=== PATIENT | male | born 1965 | race Caucasian/White ===

== ENCOUNTER 2023-07-05 07:55 | Emergency (ER) | payer SELFPAY ==
[2023-07-05 07:57] VITALS: BP 134/78; PULSE 98; RESP 16; TEMP 36.4; O2SAT 98; BMI 34.0
--- NOTE | 2023-07-05 09:09 | EDS_ITS ---
HPI History of Present Illness Chief Complaint: Wound Narrative Narrative: 57-year-old male presenting with wound on the left forearm. 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 He had a fasciotomy done at [facility]. Patient states the wound VAC was placed when he was under anesthesia. He reports that it came loose last evening. He apparently has taken this down and duct taped it back together on his arm trying to get a seal. The wound VAC has filled with blood. Patient states his left arm does not hurt and he has sensation which is normal. Denies any new trauma. He has been able to use his left hand/arm without any difficulty. [facility] Medical History Factor IX (functional) deficiency Hx of fracture of wrist Allergy/AdvReac Type Severity Reaction Status Date / Time ciprofloxacin [From Cipro] Allergy Shortness Verified 07/05/23 07:56 of breath codeine Allergy Shortness Verified 07/05/23 07:56 of breath Surgical History History of colon surgery History of partial surgical removal of colon Hx of splenectomy Social History Smoking Status: Current every day smoker tobacco type: cigarettes ROS ROS ED Constitutional Constitutional ED: Denies chills, fever(s) or sweats Eyes Eyes: Denies blurry vision or change in vision ENT ENT ED: Denies ear pain or sore throat Cardiovascular Cardiovascular: Denies chest pain, palpitations or racing heartbeat Respiratory/Chest Respiratory/Chest: Denies cough, dyspnea or sputum Gastrointestinal Gastrointestinal: Denies abdominal pain, constipation, diarrhea, nausea or vomiting Genitourinary Genitourinary ED: Denies dysuria, hematuria or urinary frequency Musculoskeletal Musculoskeletal: Denies arthralgias, myalgias or neck pain Integumentary Denies abscess, Abrasions or rash Neurologic Neurologic: Denies headache(s), paresthesias or weakness Psychiatric Psychiatric: Denies anxiety, depression, suicidal ideation or suicidal thoughts Endocrine Endocrinology: Denies polydipsia or polyuria EXAM Physical Exam Const Vital Signs: 07/05/23 07:57 Temperature 97.6 F L Temperature Source Temporal Pulse Rate 98 Respiratory Rate 16 Blood Pressure 134/78 H Blood Pressure Mean 96 Pulse Ox 98 Oxygen Delivery Method Room Air Positive well nourished General Appearance ED: cyanotic HEENT normocephalic and trauma Eyes PERRL and EOMs intact bilaterally Cardio regular rate and regular rhythm Extremity Extremity Narrative: Left forearm has a wound VAC in place which is ducked taped. Left hand neurovascular intact. He is actually using this to operate his phone. Sensation is normal. Motor strength normal. No obvious bleeding from the wound VAC site. Neuro Sensorium / Orientation: alert Psych mental status grossly normal MDM MDM MDM Narrative Medical decision making narrative: 57-year-old male presenting with wound on the left forearm. He has duct tape this in place. I spoke with Dr. Garcia the plastic surgeon who did the procedure. He states he did a skin graft and to leave this wound alone. I did offer to have the nurses change the dressing and try to seal the wound VAC but he states he does not want anybody to mess with the graft and to leave it in place and patient should take his pain medicines and antibiotics and follow-up for previously scheduled appointment. Patient was counseled. Return precautions discussed. Impression: 1. Wound check Lab Data Attestation: I reviewed the patient's lab results. Discharge Plan Triage Chief Complaint: Wound ED Provider: Stevie Cassidy Dx/Rx/DC Orders Primary Care Provider: Care Physician,No Primary Referrals: Care Physician,No Primary [Primary Care Provider] -
--- NOTE | 2023-07-05 09:26 | ED.RN ---
Wound cleaned and telfa non-stick dressing applied with kerlex and zabrina wrap. Patient tolerated well.
== END 2023-07-05 09:27 | disposition home or self-care (01) ==
PROVIDERS: Emergency Provider Student in an Organized Health Care Education/Training Program; Visit Provider Student in an Organized Health Care Education/Training Program
DX: S51.802A Unspecified open wound of left forearm, initial encounter (principal); F17.210 Nicotine dependence, cigarettes, uncomplicated; X58.XXXA Exposure to other specified factors, initial encounter
CPT/HCPCS: 99282

== ENCOUNTER 2023-12-08 14:11 | Emergency (ER) | payer SELFPAY ==
[2023-12-08 14:12] VITALS: PULSE 84; RESP 16; TEMP 36.4; O2SAT 98; BMI 34.0
[2023-12-08 14:15] VITALS: BP 186/131; PULSE 89; RESP 17; TEMP 36.4; O2SAT 96
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
--- NOTE | 2023-12-08 14:54 | CT_ITS ---
STUDY: CT ABDOMEN AND PELVIS WITHOUT CONTRAST REASON FOR EXAM: Male, 58 years old. Flank pain RADIATION DOSAGE (If Supplied By Facility): CTDIvol = ( 18.06 ) mGy, DLP = ( 885.41 ) mGycm TECHNIQUE: Transaxial images were obtained from the dome of the diaphragm to the symphysis pubis without oral contrast, and without intravenous contrast. Sagittal and coronal images were reconstructed. Individualized dose optimization techniques were used for this CT. The protocol utilizes one or more of the following dose reduction techniques: automated exposure control, adjustment of mA and/or kV according to patient size,and/or use of iterative reconstruction technique. COMPARISON: None. FINDINGS: The visualized lung bases are unremarkable. The visualized portions of the heart are within normal limits. 2.7 cm hypodense lesion left lobe of the liver. Normal gallbladder and extrahepatic biliary system. Normal spleen. Normal pancreas. Normal bilateral adrenal glands. Normal right kidney. Normal left kidney. Normal visualized stomach. Normal small intestine. Colonic diverticulosis. Right hemicolectomy. Ventral hernia contains a loop of ileal colon anastomosis. No evidence of obstruction or inflammation. Normal abdominal aorta. Normal inferior vena cava. Normal retroperitoneum. Normal urinary bladder. Bilateral fat-containing inguinal hernias. Normal abdominal wall. Compression fracture and large lucent lesion superior endplate. No retropulsion. CT/Abdomen/Pelvis without Cont IMPRESSION: No radiodense urolithiasis. Pathologic fracture L2 level. 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 Comparison would be helpful. Otherwise follow-up MRI with and without contrast recommended. Hepatic lesion as noted above. Recommend follow-up nonemergent hepatic MRI with and without IV contrast. Electronically Signed: Tristen Quiroz MD at 16:57 EDT ,
[2023-12-08] MEDS: Morphine 4 MG/ML Syringe IV ×2 (15:14→16:32)
[2023-12-08] MEDS: Ondansetron 4 MG/2 ML Vial IV (15:14)
[2023-12-08 15:31] LABS: Absolute Lymphocyte Count 1.92 X10^3/uL (0.83-4.51); Absolute Neutrophil Count 5.9 X10^3/uL (2.0-7.7); Basophil# 0.07 X10^3/uL; Basophil% 0.8 % (0-1); Eosinophil# 0.57 X10^3/uL; Eosinophils% 6.1 % (0-5); Hematocrit 42.3 % (40-54); Hemoglobin 13.4 g/dL (13.0-16.5); Lymphocyte # 1.92 X10^3/ul (0.83-4.51); Lymphocyte % 20.7 % (19-41); Mean Corp Hgb Conc 31.7 g/dL (32-36); Mean Corpuscular Hgb 27.2 pg (27.0-32.0); Mean Platelet Vol. 9.3 fl (6.2-12.0); Monocyte# 0.78 X10^3/uL; Monocyte% 8.4 % (0-10); NRBC Flagged by Analyzer 0 % (0-5); Neutrophil # 5.89 X10^3/uL (2.7-7.7); Neutrophil % 63.4 % (47-70); Platelet Count 581 K/mm3 (150-450); RBC Distribution Width CV 19.3 % (11.6-14.6); RBC Distribution Width SD 59.4 fl (35.1-43.9); Red Blood Count 4.92 M/mm3 (4.6-6.2); White Blood Count 9.3 K/mm3 (4.4-11.0)
[2023-12-08 15:47] LABS: Anion Gap 3 (5-15); BUN 19 mg/dL (7-18); BUN/Creat Ratio 18.8 RATIO (10-20); Calcium,Total 8.9 mg/dL (8.5-10.1); Chloride 109 mmol/L (98-107); Creatinine, Serum 1.01 mg/dL (0.70-1.30); EST Glomerular Filtration Rate 81 mL/min (>60); Est Glom Filt Rate - Afr Amer 98 mL/min (>60); Estimated Creatinine Clearance 96.05 ml/min; Glucose 123 mg/dL (74-106); Potassium 3.8 mmol/L (3.5-5.1); Sodium Level 138 mmol/L (136-145)
[2023-12-08 16:12] VITALS: BP 164/110; PULSE 88; RESP 18; RESP 22; TEMP 36.4; O2SAT 98
[2023-12-08 16:24] LABS: International Normalized Ratio 1.1; Prothrombin Time (Protime)PT. 14.2 SECONDS (11.7-14.9)
[2023-12-08 16:38] LABS: Color, Urine Brown (Yellow); Glucose, Dipstick Normal (Normal); Ketone-Dipstick 5 mg/dl (Negative); Leukocyte Esterase-Dipstick 100 /ul (Negative); Mucous, Urine 0 SEEN /hpf (<or=2+); Nitrite-Dipstick Positive (Negative); Occult Blood-Urine 250 /ul (Negative); Protein-Dipstick 100 mg/dl (Negative); Specific Gravity, Urine 1.025 (1.002-1.030); Squamous Epithelial Cells - UA 0 SEEN /hpf (0-5); Urine Bilirubin Dipstick Negative (Negative); Urine Clarity Cloudy (Clear); Urine Urobilinogen 4 mg/dl (Normal); Urine pH 6.5 (5.0 - 8.0)
[2023-12-08 16:51] LABS: Red Blood Cells-Urine > 100 SEEN /hpf (0-5); White Blood Cells 5-10 SEEN /hpf (0-5)
[2023-12-08 16:52] LABS: Bacteria 1+ /hpf (None Seen)
[2023-12-08 17:56] VITALS: BP 166/110; PULSE 86; RESP 18; TEMP 36.4; O2SAT 98
[2023-12-08] MEDS: HYDROmorphone 1 MG/ML Syringe 0.5 MG IV (18:27)
[2023-12-08 18:31] VITALS: BP 157/110; PULSE 68; RESP 18; TEMP 36.5; O2SAT 98
== END 2023-12-08 18:37 | disposition home or self-care (01) ==
PROVIDERS: Emergency Provider Emergency Medicine; Visit Provider Emergency Medicine
DX: R10.9 Unspecified abdominal pain (principal); D67 Hereditary factor IX deficiency; M84.48XA Pathological fracture, other site, initial encounter for fracture; F17.210 Nicotine dependence, cigarettes, uncomplicated; R31.9 Hematuria, unspecified
CPT/HCPCS: 74176; 80048; 81001; 85025; 85610; 87086; 96374; 96375; 96376; 99282; J7030; A4216; J2405

== ENCOUNTER 2024-04-08 11:24 | Emergency (ER) | payer SELFPAY ==
[2024-04-08 11:25] VITALS: BP 161/117; PULSE 110; RESP 20; TEMP 35.9; O2SAT 100
[2024-04-08 11:32] VITALS: BP 154/120; PULSE 109; RESP 22; O2SAT 95
[2024-04-08 11:35] VITALS: O2SAT 95
--- NOTE | 2024-04-08 11:47 | ED.VIS.FALL ---
HPI HPI - Fall History of Present Illness Chief Complaint: Fall Detail of Chief Complaint: Tripped and fell yesterday. Complaining of right shoulder pain. Informant: patient and spouse/S.O. Occured/Mechanism Occurred: Yesterday Mechanism/Context: Yes same level fall and Yes trip Usually ambulates: Without assistance Pain/Injury Pain Location: head and upper extremity Quality of Pain: Sharp Current Severity: Severe Maximum Severity: Severe Associated Symptoms Associated Symptoms: Negative for Parasthesias, Weakness, Inability to ambulate, Loss of consciousness or Amnesia Narrative Narrative: 58-year-old male history of factor IX deficiency. He has decreased blood clotting. He had a prior hernia repair and splenectomy. He denies any prior right shoulder injury or surgery. Yesterday he was walking tripped fell on the floor injuring his right shoulder and upper arm. Denies hitting his head. No LOC. No headache. No neck pain. Increased pain today. Patient is right-hand dominant. Prior similar symptoms: No Recent Illness/Hospitalization: No PFSH PFSH Medical History Hx of fracture of wrist Factor IX (functional) deficiency Home Medications ?Medication ?Instructions ?Recorded ?Last Taken ?Type oxycodone-acetaminophen 5 mg-325 1 tab PO Q6H PRN PRN Pain 3 days 12/08/23 Unknown Rx mg tablet #12 TABLETS Allergy/AdvReac Type Severity Reaction Status Date / Time ciprofloxacin (From Cipro) Allergy Shortness Verified 04/08/24 11:27 of breath codeine Allergy Shortness Verified 04/08/24 11:27 of breath Surgical History History of partial surgical removal of colon History of colon surgery Hx of splenectomy Social History Smoking Status: Current every day smoker tobacco type: cigarettes ROS ROS ED ROS Narrative Denies recent illness. Constitutional Constitutional ED: Denies chills Eyes Eyes: Denies blurry vision ENT ENT ED: Denies ear pain Cardiovascular Cardiovascular: Denies chest pain Respiratory/Chest Respiratory/Chest: Denies cough Gastrointestinal Gastrointestinal: Denies abdominal pain Genitourinary Genitourinary ED: Denies dysuria Musculoskeletal Musculoskeletal: Denies arthralgias Integumentary Denies abscess Neurologic Neurologic: Denies headache(s) Psychiatric Psychiatric: Denies anxiety Endocrine Endocrinology: Denies polydipsia Hematologic/Lymphatic Hematologic/Lymphatic: Reports easy bleeding and other Details: Factor IX deficiency. ; Denies lymphadenopathy Allergic/Immunologic Allergic/Immunologic ED: Denies mouth swelling, tongue swelling or urticaria EXAM Physical Exam Narrative Exam Narrative: 58-year-old male complaining of pain vital signs stable afebrile. H EENT exam pupils round react light. No signs of trauma to his face or head nontender no bruising. C-spine and neck nontender. Trachea midline. Back and spine nontender. Lungs clear equal symmetrical. Heart tachycardic 110 no murmur. Chest wall and ribs nontender. Abdomen is soft and nontender. Well-healed prior epigastric midline incision. No bruising. No peritoneal signs. Pelvic girdle intact. Both lower extremities are nontender normal range of motion. No deformity. Left upper extremity unremarkable normal range of motion and mobile designer strength. Right elbow, forearm, wrist and hand are nontender with no deformity. Normal mobile designer strength. Normal radial pulse. Normal sensation. He has tenderness along his right shoulder and proximal humerus. He has limited range of motion due to pain. There is no gross bony deformity. Currently there is no bruising. Neurologically is awake and alert with no focal motor deficits. Const Vital Signs: 04/08/24 11:25 04/08/24 11:32 04/08/24 11:35 Temperature 96.7 F L Temperature Source Temporal Pulse Rate 110 H 109 H Respiratory Rate 20 H 22 H Respiratory Effort Normal Blood Pressure 161/117 H 154/120 H Blood Pressure Mean 131 131 Pulse Ox 100 95 95 Oxygen Delivery Method Room Air Room Air Room Air 04/08/24 15:00 Temperature Temperature Source Pulse Rate 105 H Respiratory Rate 16 Respiratory Effort Blood Pressure 150/99 H Blood Pressure Mean 116 Pulse Ox 98 Oxygen Delivery Method Room Air Positive well nourished and well developed; Negative for cachectic, contractures or unkempt General Appearance ED: well developed; Negative for unkempt, cachectic, contractures or NAD Nutritional Appearance: Negative for cachectic HEENT Reports normocephalic atraumatic; Negative for trauma, contusion, hematoma or tenderness Eyes PERRL and EOMs intact bilaterally General Eye ED: Negative for pale conjunctiva or scleral icterus Neck full ROM, no lymphadenopathy and supple General: Negative for tenderness Chest Wall inspection of chest normal and palpation of chest normal Resp normal respiratory effort, no retractions and clear to auscultation bilaterally Auscultation: Negative for rales, rhonchi or wheezes Cardio regular rhythm, S1 normal heart sound, S2 normal heart sound and no murmurs; Negative for regular rate Rate: tachycardic GI non-tender, non-distended and no masses Inspection: Negative for abdominal distention Palpation: soft; Negative for guarding or rebound tenderness present Back/Spine no CVA tenderness General Back: Negative for CVA tenderness Cervical Spine: Negative for cervical spine tenderness Lumbar Spine / Lower Back: Negative for lumbar spinal tenderness Extremity Extremity Narrative: Tenderness right shoulder. Limited range of motion due to pain. No bruising or swelling. No deformity. Right elbow, forearm, wrist and hand are nontender. Normal mobile designer strength. Normal sensation. Normal radial pulse. Neuro oriented x3, CN's II-XII intact bilaterally, moves all extremities and no focal motor deficits Bagley Coma Scale: document GCS findings Spontaneous Obeys Commands Oriented 15 Sensorium / Orientation: alert, oriented to person, oriented to place and oriented to time; Negative for orientation impaired, confused, lethargic or stuporous Motor Exam: strength 5/5 throughout Psych mental status grossly normal and thought process normal Appearance: Negative for unkempt Mood & Affect: Negative for depressed or tearful Skin Lesions: no lesions Rashes: no rashes MDM MDM MDM Narrative Medical decision making narrative: 58-year-old male with a factor IX clotting deficiency fell yesterday hit his right shoulder complaining of pain today. Triage note initially said he fell on stairs he and family adamantly denied it he did not fall on the stairs it was just to the floor. X-ray of be obtained of his right shoulder and humerus. Treated with IV morphine for pain and Zofran. No signs of any head injury chest nor abdomen. Repeat exams the patient's pain is much better now after IV pain medication. He is able to move his right arm. There is very minimal external swelling on the soft tissue. There is still no bruising. I did go over the x-ray with the patient there is no fracture or dislocation. The CAT scan is read by the radiologist shows minimal soft tissue swelling. I did discuss the CAT scan with the radiologist specifically. We did not see any any expanding hematoma or significant fluid collection. Patient be discharged to home. Ice to the area. Tylenol for pain. Repeat exam prior to discharge around 4 PM patient does have some soft tissue swelling on his posterior shoulder laterally in his proximal humerus. Again no bruising. With his factor IX deficiency I do think this is soft tissue swelling and possible hematoma but really was not seen on the CAT scan and I specifically discussed with the radiologist. I spoke to the patient's folder seamer a Dr. Day at [facility]. She knows the patient well. Clinically does not sound this time the patient needs any factor replacement. He and his girlfriend are comfortable with that. To be discharged to home. If he gets worse he is to follow-up with his folder seamer at [facility]. History & Record Review Discussion w/independent historian: Patient Radiography Diagnostic Testing: Clinical Impression(s) from Imaging Studies Humerus X-Ray 04/08/24 12:15 IMPRESSION: Normal x-ray examination of the humerus. Electronically Signed: Arnie Pacheco MD at 12:47 EDT , Shoulder X-Ray 04/08/24 12:15 IMPRESSION: Findings suggestive of resection of the distal portion of the right clavicle. Soft tissue swelling. Electronically Signed: Arnie Pacheco MD at 12:48 EDT , Upper Extremity CT 04/08/24 13:25 IMPRESSION: No acute fracture or dislocation is seen. Electronically Signed: Arnie Pacheco MD at 13:59 EDT , Right shoulder x-ray, 2 views, interpreted by myself shows Discharge Plan Triage Chief Complaint: Fall ED Provider: Kenton Walker Dx/Rx/DC Orders Clinical Impression: Fall, Contusion of right shoulder Instructions: ED Contusion, Upper Extremity Prescriptions: No Action oxycodone-acetaminophen 5-325 mg tablet 1 tab PO Q6H PRN PRN (Reason: Pain) 3 Days Qty: 12 0RF Primary Care Provider: Care Physician,No Primary Referrals: Hal Monreal MD [Med Staff - Active Staff] - As Needed Care Physician,No Primary [Primary Care Provider] - Activity Restrictions/Additional Instructions: The x-ray of your shoulder and upper arm and the CAT scan showed no broken bone. This appears to be a soft tissue injury to the arm. Ice. Tylenol for pain. This should progressively start getting better. If you do not get your normal range of motion back follow-up with the orthopedic physician I referred you to Dr. Hal Monreal. Print Language: Turkmen Disposition Disposition: Home, Self Care
[2024-04-08] MEDS: Ondansetron 4 MG/2 ML Vial IV (11:51)
[2024-04-08] MEDS: morphine 8 MG/ML Syringe IV (11:51)
--- NOTE | 2024-04-08 12:04 | ED.RN ---
PT HAVING HISTAMINE REACTION TO MORPHINE. PT ASKS THIS RN TO SCRATCH. AREA RED BUT NOT SPREADING WILL MONIITOR. DR SAMANO
--- NOTE | 2024-04-08 12:15 | RAD_ITS ---
STUDY: X-RAY - RIGHT HUMERUS REASON FOR EXAM: Male, 58 years old. Pain following a fall. TECHNIQUE: 2 view(s) of the humerus. COMPARISON: None. FINDINGS: Normal visualized humerus. There is no demonstrated fracture or osseous destructive process. There is no demonstrated soft tissue abnormality. RAD/Humerus min 2 Views IMPRESSION: Normal x-ray examination of the humerus. Electronically Signed: Arnie Pacheco MD at 12:47 EDT ,
--- NOTE | 2024-04-08 12:15 | RAD_ITS ---
STUDY: X-RAY - RIGHT SHOULDER REASON FOR EXAM: Male, 58 years old. Fall and pain TECHNIQUE: 2 view(s) of the shoulder. COMPARISON: None. FINDINGS: Normal glenohumeral articulation. Findings suggestive of prior resection of the distal right clavicle. Normal acromion. Normal humeral head and visualized proximal humerus. Soft tissue swelling. Normal visualized pulmonary apex. RAD/Shoulder min 2 Views IMPRESSION: Findings suggestive of resection of the distal portion of the right clavicle. Soft tissue swelling. Electronically Signed: Arnie Pacheco MD at 12:48 EDT ,
--- NOTE | 2024-04-08 13:25 | CT_ITS ---
STUDY: CT RIGHT SHOULDER REASON FOR EXAM: Male, 58 years old. Fall possible fracture RADIATION DOSAGE (If Supplied By Facility): CTDIvol = ( 45.25 ) mGy, DLP = ( 1111.08 ) mGycm TECHNIQUE: The patient was scanned in a multi detector CT scanner. High resolution transaxial imaging was performed without the administration of intravenous contrast material. Sagittal and coronal images were reconstructed. Individualized dose optimization techniques were used for this CT. COMPARISON: Comparison is made with prior radiograph done earlier today. FINDINGS: Normal glenohumeral articulation. Normal glenoid rim, neck and visualized scapula. Normal humeral head, neck and tuberosities. Normal coracoid process. Normal visualized lateral clavicle. Findings suggestive of possible resection of the distal lateral portion of the right clavicle. There is a Type II morphology (curved), with a neutral orientation. Normal visualized muscles and soft tissue structures. CT/Extremity Upper without Contra IMPRESSION: No acute fracture or dislocation is seen. Electronically Signed: Arnie Pacheco MD at 13:59 EDT ,
--- NOTE | 2024-04-08 13:30 | ED.RN ---
PT PULLED OUT IV. BLOOD NOTED ON FLOOR,ALL OVER BED, UNDERNEATH BED. CLEANED UP. ROOM TO BE A DEEP CLEAN
--- NOTE | 2024-04-08 14:57 | ED.RN ---
PT CURRENTLY ON PHONE TALKING WITH MOTHER ABRAHAM. PT AWARE NEEDS RIDE
[2024-04-08 15:00] VITALS: BP 150/99; PULSE 105; RESP 16; O2SAT 98
--- NOTE | 2024-04-08 15:52 | NURSING ---
DR MUÑOZ PAGED [phone]
== END 2024-04-08 16:16 | disposition home or self-care (01) ==
PROVIDERS: Emergency Provider Emergency Medicine; Visit Provider Emergency Medicine
DX: S40.011A Contusion of right shoulder, initial encounter (principal); F17.210 Nicotine dependence, cigarettes, uncomplicated; W18.30XA Fall on same level, unspecified, initial encounter
CPT/HCPCS: 73030; 73060; 73200; 96374; 96375; 99282; A4216; J2405

== ENCOUNTER 2024-04-10 15:46 | Emergency (ER) | payer SELFPAY ==
[2024-04-10] VITALS (15 sets, daily range): BP systolic 132–196; BP diastolic 75–133; PULSE 110–123; RESP 12–35; TEMP 36.6–37; O2SAT 92–99; BMI 35.5
--- NOTE | 2024-04-10 16:12 | CT_ITS ---
STUDY: CT CERVICAL SPINE WITHOUT CONTRAST REASON FOR EXAM: Male, 58 years old. injury RADIATION DOSAGE (If Supplied By Facility): CTDIvol = ( 29.55 ) mGy, DLP = ( 625.46 ) mGycm TECHNIQUE: High resolution transaxial imaging was performed without contrast material. Sagittal and coronal images were reconstructed. Individualized dose optimization techniques were used for this CT. COMPARISON: None FINDINGS: Normal craniovertebral junction. There are degenerative changes of the anterior atlantoaxial articulation. Normal odontoid process. There is straightening of the normal cervical lordosis. Normal vertebral bodies and posterior osseous elements. C2-3: Mild left facet hypertrophy produces mild left neural foraminal stenosis. No central spinal stenosis. C3-4: Mild left facet hypertrophy produces mild left neural foraminal stenosis. No central spinal stenosis. C4-5: Normal endplates. Normal disc height and morphology. Normal central canal and intervertebral neuroforamina. C5-6: Normal endplates. Normal disc height and morphology. Normal central canal and intervertebral neuroforamina. C6-7: Normal endplates. Normal disc height and morphology. Normal central canal and intervertebral neuroforamina. C7-T1: Normal endplates. Normal disc height and morphology. Normal central canal and intervertebral neuroforamina. Normal visualized soft tissue structures. CT/Spine Cervical without Contras IMPRESSION: No acute fracture or subluxation. Electronically Signed: Chico Roland MD at 19:17 EDT ,
--- NOTE | 2024-04-10 16:12 | CT_ITS ---
STUDY: CT CHEST, ABDOMEN T PELVIS WITHOUT CONTRAST REASON FOR EXAM: Male, 58 years old. injury RADIATION DOSAGE (If Supplied By Facility): CTDIvol = ( 37.05 ) mGy, DLP = ( 3399.71 ) mGycm TECHNIQUE: Transaxial imaging was performed without the administration of intravenous contrast material. Individualized dose optimization techniques were used for this CT. COMPARISON: No relevant priors. FINDINGS: CHEST The lungs are normal. There is no demonstrated pleural abnormality. Normal heart and pericardium. There are no calcifications of the coronary arteries. Normal mediastinum. Normal hilar regions. Normal unenhanced pulmonary arteries. Normal aorta arch and descending thoracic aorta. Multiple healed rib fractures bilaterally. Enlargement indenting ill-defined increased attenuation of the right subscapularis muscle suggestive of an intramuscular hematoma. Stranding of the fat within the right axilla and right chest wall. There is no demonstrated abnormality of the visualized upper abdomen. ABDOMEN The visualized lung bases are unremarkable. The visualized portions of the heart are within normal limits. Normal liver. Normal gallbladder and extrahepatic biliary system. No spleen visualized consistent with asplenia or plantar splenectomy. Normal pancreas. Normal bilateral adrenal glands. Normal right kidney. Normal left kidney. Normal visualized stomach. Normal small intestine. There are multiple colonic diverticula consistent with diverticulosis. Status post right hemicolectomy. Normal abdominal aorta. Normal inferior vena cava. Normal retroperitoneum. Normal abdominal wall. Normal osseous structures. PELVIS Normal urinary bladder. Normal visualized small intestine. Normal visualized colon. There is no pelvic fluid. There is no pelvic lymphadenopathy or mass lesion. Normal visualized pelvic arteries. Normal abdominal wall. Normal osseous structures. CT/CT Chest, Abd, Pelvis WO Cont IMPRESSION: Suspect hematoma the right subscapularis muscle but no pneumothorax or hemothorax. No acute solid organ or bowel injury. Electronically Signed: Chico Roland MD at 18:47 EDT ,
--- NOTE | 2024-04-10 16:12 | CT_ITS ---
STUDY: CT BRAIN WITHOUT CONTRAST REASON FOR EXAM: Male, 58 years old. injury RADIATION DOSAGE (If Supplied By Facility): CTDIvol = ( 44.99 ) mGy, DLP = ( 796.11 ) mGycm TECHNIQUE: Transaxial CT imaging of the brain was performed without administration of intravenous contrast material. Individualized dose optimization techniques were used for this CT. COMPARISON: No relevant priors. FINDINGS: Normal soft tissue structures. Normal calvarium. Normal size ventricles and extra-axial spaces for the patient''s age. Normal white matter tracts of the cerebral hemispheres. Normal basal ganglia and thalami. Normal brainstem. Normal cerebellum. There is no intracranial hemorrhage. There are no findings of an acute ischemic infarction. Normal visualized paranasal sinuses. CT/Brain/Head without Contrast IMPRESSION: Normal unenhanced CT scan of the brain. Electronically Signed: Chico Roland MD at 18:19 EDT ,
--- NOTE | 2024-04-10 16:16 | EDS_ITS ---
HPI History of Present Illness Chief Complaint: Weakness Informant: patient and spouse/S.O. Narrative Narrative: Presents by private vehicle with significant other due to worsening weakness. 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 He had weakness fall 2 days ago right shoulder injury. Seen in the ED x-ray CT imaging negative. The evening increasing bruising and pain. He has not been able to get out of bed for the last 2 days. Per significant other legs are Jell-O. He is reported later evening increasing neck pain and back pain. There has been increasing confusion per significant other. He does not take any blood thinners. Reported injury left forearm this past May went to [facility] Admitted treated for compartment syndrome of his left forearm. Denies any paresthesias to the right upper extremity. However discussed pain worse with movement. There is been no new injuries. Prior similar symptoms: Yes PFSH PFSH Medical History Hx of fracture of wrist Factor IX (functional) deficiency Home Medications ?Medication ?Instructions ?Recorded ?Last Taken ?Type NK 04/10/24 Unknown History Allergy/AdvReac Type Severity Reaction Status Date / Time ciprofloxacin (From Cipro) Allergy Shortness Verified 04/08/24 11:27 of breath codeine Allergy Shortness Verified 04/08/24 11:27 of breath Surgical History History of partial surgical removal of colon History of colon surgery Hx of splenectomy Social History Smoking Status: Current every day smoker tobacco type: cigarettes ROS ROS ED Constitutional Constitutional ED: Denies chills, fever(s) or sweats Eyes Eyes: Denies change in vision ENT ENT ED: Denies dysphagia or sore throat Cardiovascular Cardiovascular: Denies chest pain, leg edema, palpitations or racing heartbeat Respiratory/Chest Respiratory/Chest: Denies cough, dyspnea or dyspnea on exertion Gastrointestinal Gastrointestinal: Denies abdominal pain, diarrhea, nausea or vomiting Genitourinary Genitourinary ED: Denies dysuria, hematuria or urinary frequency Musculoskeletal Musculoskeletal: Reports back pain and neck pain; Denies extremity pain Integumentary Denies rash or wounds Neurologic Neurologic: Reports headache(s) and weakness; Denies paresthesias Hematologic/Lymphatic Hematologic/Lymphatic: Reports easy bruising EXAM Physical Exam Const Vital Signs: 04/10/24 15:47 04/10/24 15:51 04/10/24 16:10 Temperature 97.9 F Temperature Source Oral Pulse Rate 121 H 123 H Respiratory Rate 12 18 Respiratory Pattern Tachypnea Blood Pressure 132/107 H 171/133 H Blood Pressure Mean 115 145 Pulse Ox 99 94 Oxygen Delivery Method Room Air Room Air 04/10/24 16:12 04/10/24 16:31 04/10/24 16:45 Temperature Temperature Source Pulse Rate 120 H 118 H Respiratory Rate 24 H 25 H Respiratory Pattern Tachypnea Blood Pressure Blood Pressure Mean Pulse Ox Oxygen Delivery Method 04/10/24 16:51 04/10/24 17:00 04/10/24 17:25 Temperature Temperature Source Pulse Rate 110 H 118 H Respiratory Rate 26 H 25 H Respiratory Pattern Blood Pressure 165/110 H 156/75 H 157/118 H Blood Pressure Mean 128 102 125 Pulse Ox 95 94 Oxygen Delivery Method Room Air Room Air 04/10/24 17:30 04/10/24 17:42 04/10/24 17:44 Temperature 98.4 F Temperature Source Oral Pulse Rate 116 H 118 H Respiratory Rate 35 H 23 H Respiratory Pattern Blood Pressure 165/121 H 165/121 H Blood Pressure Mean 133 135 Pulse Ox 92 Oxygen Delivery Method Room Air 04/10/24 17:45 04/10/24 18:00 04/10/24 19:25 Temperature Temperature Source Pulse Rate 115 H 112 H 117 H Respiratory Rate 25 H 23 H 23 H Respiratory Pattern Blood Pressure 149/85 H 196/116 H Blood Pressure Mean 103 142 Pulse Ox 94 95 Oxygen Delivery Method Room Air Room Air 04/10/24 20:00 04/10/24 20:48 Temperature 98.6 F Temperature Source Pulse Rate 112 H 117 H Respiratory Rate 21 H 27 H Respiratory Pattern Blood Pressure 155/121 H 192/129 H Blood Pressure Mean 132 150 Pulse Ox 95 95 Oxygen Delivery Method Room Air Positive well nourished and well developed Constitutional Narrative: GCS 15, uncomfortable, nontoxic General Appearance ED: well developed HEENT Reports dry mucous membranes normocephalic and atraumatic Mouth ED: Yes dry mucous membranes Mouth: dry mucous membranes Eyes EOMs intact bilaterally and conjunctivae normal General Eye ED: Yes normal appearance of both eyes Neck no lymphadenopathy and supple Neck Narrative: Lower cervical tenderness without any step-offs. General: tenderness Chest Wall Chest Narrative: Noticed ecchymosis under the right lower collarbone, no crepitus. Chest: tenderness Resp normal respiratory effort and normal air movement Resp Narrative: Symmetric breath sounds. Effort and Inspection: symmetric chest movement; Negative for respiratory distress Cardio regular rhythm and no murmurs Rate: tachycardic Peripheral Pulses: pulses 2+ throughout GI normal to inspection, nondistended, normoactive bowel sounds and non-tender Palpation: Negative for guarding or rebound tenderness present Back/Spine no CVA tenderness Back/Spine Narrative: Tender palpation mid thoracic without any step-offs or ecchymosis. Small area of ecchymosis right lateral thoracic region. Skin intact. Extremity Extremity Narrative: Right upper extremity: Ecchymosis posterior humerus tenderness, some tension posteriorly, however soft compartments anteriorly. Patient with pain with movement of the right shoulder. Neuro vas intact distally. General Extremety ED: Yes edema and tenderness General Extremity: edema Neuro oriented x3, CN's II-XII intact bilaterally and no sensory deficits noted Sensorium / Orientation: awake and alert Skin Skin Narrative: See above MDM MDM MDM Narrative Medical decision making narrative: Interventions / MDM: Differential diagnosis: Dehydration, ecchymosis right upper extremity, history of factor IX deficiency, compartment syndrome Diagnosis considered but do not suspect: Intracranial hemorrhage, fractures however image studies negative. My EKG interpretation: N/A Imaging independently reviewed and interpreted by myself: CT head/cervical spine: No acute process. CT chest abdomen pelvis: Old L3 compression fracture. There was hematoma right scapular per radiology. External documents reviewed: N/A Test considered but not ordered:N/A ED course: Patient dry mucosal murmurs tachycardia. Decreased p.o. intake. Reported increased confusion increasing neck and upper back pain there has been no new falls. Will obtain trauma scans head neck chest abdomen pelvis. Will check blood counts, more tense right upper arm posterior heel mends no current compartment syndrome however is at risk with his factor IX deficiency. We do not have treatment for this deficiency at the facility here. Will treat for his pain. Will likely need transfer for monitoring. 1925: He received additional fentanyl and Dilaudid for pain control for his right arm pain. CT scans with no new finding. Hematoma noted scapularis area clinically from his hematoma from his arm and fall. Hemoglobin 9.4 down from 13.4 in November. Blood pressure stable. White count returned at 20.8 I did add sepsis labs. Urine culture also added. He is covered with Zosyn and vancomycin. Lactic acid returned at 2.1. Denies urinary symptoms. No pneumonia on CT. Reevaluation of pain is more taut in the posterior humerus anterior was soft. However he is at risk for compartment syndrome. He had surgery in May left forearm secondary to small a traumatic event. I spoke with [facility] Transfer line ED physician Dr. Debra Candelario, he will be transferred to the ED for trauma consult. Discussed broad coverage antibiotics for his leukocytosis. Patient and significant other updated. Re-evaluation: stable Disposition discussed with patient/family/significant other: Patient and significant other Case discussed with consulting clinician: [facility] This note was generated with [employer] dictation software. It may contain incorrect words, spelling, and punctuation that were not noted in checking the note before signing. Lab Data Attestation: I reviewed the patient's lab results. Labs: Laboratory Results - last 24 hr 04/10/24 04/10/24 04/10/24 17:05 18:39 19:33 WBC 20.8 H RBC 3.26 L Hgb 9.4 L Hct 29.0 L MCV 89.0 MCH 28.8 MCHC 32.4 RDW Std Deviation 61.0 H RDW Coeff of Uday 19.0 H Plt Count 338 MPV 10.3 Immature Gran % (Auto) 0.700 Neut % (Auto) 78.7 H Lymph % (Auto) 9.6 L [place] % (Auto) 10.8 H Eos % (Auto) 0.0 Baso % (Auto) 0.2 Absolute Neuts (auto) 16.4 H Absolute Lymphs (auto) 1.99 Nucleated RBC % 0.8 Differential Comment SCANNED Diff Path Review October foll PT 12.5 INR 0.9 APTT 40.1 H Sodium 136 Potassium 4.0 Chloride 104 Carbon Dioxide 24.0 Anion Gap 8 BUN 41 H Creatinine 1.29 Estim Creat Clear Calc 76.93 Est GFR (MDRD) Af Amer 74 Est GFR (MDRD) Non-Af 61 BUN/Creatinine Ratio 31.8 H Glucose 190 H Lactic Acid 2.1 H* Calcium 8.5 Urine Color Tammy Urine Clarity Clear Urine pH 6.0 Ur Specific Coffey 1.015 Urine Protein 30 H Urine Glucose (UA) Normal Urine Ketones Negative Urine Occult Blood Negative Urine Nitrite Negative Urine Bilirubin 1 H Urine Urobilinogen 12 H Ur Leukocyte Esterase 25 H Urine RBC 0 SEEN Urine WBC 0-5 SEEN Ur Squamous Epith Cells 0 SEEN Urine Bacteria 1+ Urine Mucus 0 SEEN Radiography Diagnostic Testing: Clinical Impression(s) from Imaging Studies Brain CT 04/10/24 16:12 IMPRESSION: Normal unenhanced CT scan of the brain. Electronically Signed: Chico Roland MD at 18:19 EDT Reading Location ID and State: [id number] / [employer] , Service support , Cervical Spine CT 04/10/24 16:12 IMPRESSION: No acute fracture or subluxation. Electronically Signed: Chico Roland MD at 19:17 EDT Reading Location ID and State: [id number] / [employer] , Service support , Chest/Abdomen/Pelvis CT 04/10/24 16:12 IMPRESSION: Suspect hematoma the right subscapularis muscle but no pneumothorax or hemothorax. No acute solid organ or bowel injury. Electronically Signed: Chico Roland MD at 18:47 EDT Reading Location ID and State: [id number] / [employer] , Service support , Critical Care Time Critical Care Time: Yes Critical care time (excluding procedures): 30-74 minutes, Discussing w/Patient &/or Family/Tile Helper, Discussing w/Consultants, Arranging Admission or Transfer, Performing Direct Patient Care at Bedside and - (40 minutes) Discharge Plan Triage Chief Complaint: Weakness ED Provider: Clement Meeks Dx/Rx/DC Orders Clinical Impression: Hematoma of right upper extremity, Leukocytosis, Factor IX deficiency, Weakness, Anemia Prescriptions: No Action NK Primary Care Provider: Care Physician,No Primary Referrals: Care Physician,No Primary [Primary Care Provider] - Print Language: Peruvian Disposition Disposition: Acute Care Hospital Discharge Location: [facility] Discharge Date/Time: 04/10/24 21:27
[2024-04-10] MEDS: fentaNYL 100 MCG/2 ML Ampul 50 MCG IV ×2 (16:24→17:50)
[2024-04-10] MEDS: 0.9% Normal Saline (500mL Bag) 500 ML 999 ML IV (16:26)
--- NOTE | 2024-04-10 16:32 | ED.RN ---
Unable to obtain blood work via peripheral IV. Lab called and they will be sending someone to draw pt.
[2024-04-10 17:15] LABS: Absolute Lymphocyte Count 1.99 X10^3/uL (0.83-4.51); Absolute Neutrophil Count 16.4 X10^3/uL (2.0-7.7); Basophil# 0.04 X10^3/uL; Basophil% 0.2 % (0-1); Hemoglobin 9.4 g/dL (13.0-16.5); Lymphocyte # 1.99 X10^3/ul (0.83-4.51); Lymphocyte % 9.6 % (19-41); Mean Corp Hgb Conc 32.4 g/dL (32-36); Mean Corpuscular Hgb 28.8 pg (27.0-32.0); Mean Platelet Vol. 10.3 fl (6.2-12.0); Monocyte# 2.24 X10^3/uL; Monocyte% 10.8 % (0-10); NRBC Flagged by Analyzer 0.8 % (0-5); Neutrophil # 16.35 X10^3/uL (2.7-7.7); Neutrophil % 78.7 % (47-70); POSITIVE DIFFERENTIAL YES; Platelet Count 338 K/mm3 (150-450); Red Blood Count 3.26 M/mm3 (4.6-6.2); White Blood Count 20.8 K/mm3 (4.4-11.0)
[2024-04-10 17:21] LABS: Differential Indicated SCAN CRITERIA MET
[2024-04-10 17:23] LABS: International Normalized Ratio 0.9; Prothrombin Time (Protime)PT. 12.5 SECONDS (11.7-14.9)
[2024-04-10 17:24] LABS: Partial Thromboplast Time 40.1 Seconds (24.1-36.2)
[2024-04-10 17:28] LABS: Anion Gap 8 (5-15); BUN 41 mg/dL (7-18); BUN/Creat Ratio 31.8 RATIO (10-20); Calcium,Total 8.5 mg/dL (8.5-10.1); Chloride 104 mmol/L (98-107); Creatinine, Serum 1.29 mg/dL (0.70-1.30); EST Glomerular Filtration Rate 61 mL/min (>60); Est Glom Filt Rate - Afr Amer 74 mL/min (>60); Estimated Creatinine Clearance 76.93 ml/min; Glucose 190 mg/dL (74-106); Sodium Level 136 mmol/L (136-145)
[2024-04-10 18:20] LABS: Differential Comment SCANNED
[2024-04-10] MEDS: HYDROmorphone 1 MG/ML Syringe IV ×2 (18:44→20:11)
[2024-04-10 19:23] LABS: Lactic Acid 2.1 mmol/L (0.4-1.9)
[2024-04-10] MEDS: Piperacil/Tazobactam 3.375 GM in 0.9% Normal Saline (50mL MB+) 50 ML IV (19:24)
[2024-04-10 19:42] LABS: Mucous, Urine 0 SEEN /hpf (<or=2+); Red Blood Cells-Urine 0 SEEN /hpf (0-5); Squamous Epithelial Cells - UA 0 SEEN /hpf (0-5)
[2024-04-10 19:49] LABS: Color, Urine Amber (Yellow); Glucose, Dipstick Normal (Normal); Ketone-Dipstick Negative (Negative); Leukocyte Esterase-Dipstick 25 /ul (Negative); Nitrite-Dipstick Negative (Negative); Occult Blood-Urine Negative /ul (Negative); Protein-Dipstick 30 mg/dl (Negative); Specific Gravity, Urine 1.015 (1.002-1.030); Urine Clarity Clear (Clear); Urine Urobilinogen 12 mg/dl (Normal)
[2024-04-10 20:02] LABS: Urine Bilirubin Dipstick 1 mg/dL (Negative)
[2024-04-10 20:03] LABS: Bacteria 1+ /hpf (None Seen); White Blood Cells 0-5 SEEN /hpf (0-5)
[2024-04-10] MEDS: Vancomycin HCl 2,000 MG in 0.9% Normal Saline (500mL Bag) 500 ML 250 MG IV (20:10)
[2024-04-10 22:44] LABS: Reflex Lactate? Y
[2024-04-12 13:38] LABS: Pathologist Review Reviewed
== END 2024-04-10 21:27 | disposition short-term general hospital (02) ==
PROVIDERS: Emergency Provider Emergency Medicine; Visit Provider Emergency Medicine
DX: S20.211A Contusion of right front wall of thorax, initial encounter (principal); D67 Hereditary factor IX deficiency; S40.011A Contusion of right shoulder, initial encounter; W19.XXXA Unspecified fall, initial encounter; D72.829 Elevated white blood cell count, unspecified; D64.9 Anemia, unspecified; R51.9 Headache, unspecified; R41.0 Disorientation, unspecified; R53.1 Weakness; M54.2 Cervicalgia; F17.210 Nicotine dependence, cigarettes, uncomplicated; Z88.1 Allergy status to other antibiotic agents; Z90.81 Acquired absence of spleen; Z90.49 Acquired absence of other specified parts of digestive tract
CPT/HCPCS: 70450; 71250; 72125; 74176; 80048; 81001; 83605; 85025; 85610; 85730; 87040; 87086; 96361; 96365; 96367; 96374; 96375; 96376; 99285; J7040; A4216

== ENCOUNTER 2024-04-15 15:21 | Emergency (ER) | payer SELFPAY ==
[2024-04-15] VITALS (11 sets, daily range): BP systolic 134–168; BP diastolic 78–106; PULSE 88–110; RESP 15–38; TEMP 36.7–37; O2SAT 93–98; BMI 35.6
--- NOTE | 2024-04-15 15:40 | CT_ITS ---
STUDY: CT BRAIN WITHOUT CONTRAST REASON FOR EXAM: Male, 58 years old. R sided weakness RADIATION DOSAGE (If Supplied By Facility): = ( 44.99 ) mGy, DLP = ( 779.24 ) mGycm TECHNIQUE: Transaxial CT imaging of the brain was performed without administration of intravenous contrast material. Individualized dose optimization techniques were used for this CT. COMPARISON: 04/10/2024 FINDINGS: Normal soft tissue structures. Normal calvarium. Normal size ventricles and extra-axial spaces for the patient''s age. Normal white matter tracts of the cerebral hemispheres. There are bilateral lacunar infarcts of the basal ganglia and thalami. Normal brainstem. Normal cerebellum. There is no intracranial hemorrhage. There are no findings of an acute ischemic infarction. Normal visualized paranasal sinuses. CT/Brain/Head without Contrast IMPRESSION: No change or acute abnormality. 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 Electronically Signed: Servando Horton MD at 18:12 EDT ,
--- NOTE | 2024-04-15 15:40 | CT_ITS ---
STUDY: CT CERVICAL SPINE WITHOUT CONTRAST REASON FOR EXAM: Male, 58 years old. fall, neck trauma RADIATION DOSAGE (If Supplied By Facility): CTDIvol = ( 27.38 ) mGy, DLP = ( 521.37 ) mGycm TECHNIQUE: High resolution transaxial imaging was performed without contrast material. Sagittal and coronal images were reconstructed. Individualized dose optimization techniques were used for this CT. COMPARISON: None FINDINGS: No definite acute fracture/dislocation. The cervical junction is intact. C1-C2 articulation is intact. Curvature is within normal limits. There is normal alignment. Facet joints are intact at all levels bilaterally. No jumped facets. There is multilevel spondyloarthropathy. Multilevel degenerative disc disease seen. Multilevel loss of disc height. Multilevel posterior marginal osteophytes and disc bulges. Multilevel neural foraminal narrowing. Visualized paraspinal soft tissues and structures are unremarkable. CT/Spine Cervical without Contras IMPRESSION: There is no definite acute fracture/dislocation. Degenerative changes.. Electronically Signed: Servando Horton MD at 18:16 EDT ,
--- NOTE | 2024-04-15 15:40 | CT_ITS ---
EXAM: CT CHEST, ABDOMEN AND PELVIS WITH INTRAVENOUS CONTRAST CLINICAL INDICATION: mult falls, pain abd/chest, xmas disease TECHNIQUE: Helically acquired images were obtained of the chest, abdomen and pelvis with intravenous contrast. This CT exam was performed using one or more of the following dose reduction techniques: automated exposure control, adjustment of the mA and/or kV according to patient size, and/or use of iterative reconstruction technique. CONTRAST: IV 100mL [id number] RADIATION DOSE: CTDIvol = 22.30 mGy, DLP = 2199.77 mGy-cm COMPARISON: 12/08/2023, 04/10/2024 FINDINGS: LIMITATIONS: Exam is limited by improper positioning of patient''s arms resulting in significant streak artifact. CHEST: LUNGS AND PLEURAL SPACES: Unremarkable. No mass. No consolidation or edema. No pleural effusion or thickening. No pneumothorax. HEART: Unremarkable. Heart size is normal. No pericardial effusion. MEDIASTINUM: Unremarkable. No mediastinal or hilar adenopathy. Esophagus is unremarkable. No hiatal hernia. THYROID: Unremarkable. No thyroid lesions. ABDOMEN: LIVER: Unremarkable. Homogeneous. No focal mass. GALLBLADDER AND BILE DUCTS: Unremarkable. No calcified gallstones. No gallbladder distention or wall edema. No intra- or extrahepatic biliary ductal dilation. PANCREAS: Unremarkable. No focal cystic or solid mass. SPLEEN: Unremarkable. Normal size without focal cystic or solid mass. ADRENALS: Unremarkable. No nodules. KIDNEYS AND URETERS: Unremarkable. Normal renal size and position. No hydronephrosis. STOMACH AND BOWEL: Evaluation of the GI tract is limited by absence of oral contrast. Cannot exclude stomach wall thickening. No dilated loops of bowel or evidence for obstruction. Cannot exclude segmental thickening of the pollard of the small or large bowel. Cannot exclude enteritis or colitis. Moderate diffuse fecal retention. Diverticulosis without definite diverticulitis. Appendix within normal limits. There is a small midline abdominal wall hernia containing a short knuckle of bowel with no evidence for secondary obstruction. No focal inflammatory change. PELVIS: APPENDIX: No evidence of acute appendicitis. BLADDER: Unremarkable. REPRODUCTIVE: Unremarkable as visualized. No mass. CHEST, ABDOMEN and PELVIS: INTRAPERITONEAL SPACE: Unremarkable. No ascites or other fluid collection. No free air. BONES/JOINTS: No definite acute fractures. Stable partial compression fractures of T6, T8, and T11. Severe compression fracture of L2, stable. Stable appearance of old rib fractures. No suspicious lytic or blastic abnormality. SOFT TISSUES: Again seen are changes from of diffuse soft tissue swelling probably related to hematomas of the right shoulder muscles, especially the subscapularis. Nonspecific edema of the subcutaneous tissues of the upper right chest. Probable bruising in the right axilla. No definite extravasation of contrast or evidence for active bleeding. Overall the findings are likely mildly improved since previous exam. VASCULATURE: Unremarkable. Aorta is non-dilated. No aortic dissection. No obvious central pulmonary embolism although this study was not performed with the pulmonary embolism protocol. LYMPH NODES: Unremarkable. No enlarged lymph nodes. CT/CT Chest, Abd, Pel w/Contrast IMPRESSION: 1. Limited as above. 2. Extensive intramuscular hematomas and axillary hemorrhages of the right shoulder and upper right chest wall are seen, probably slightly improved. Definitely no worsening or active bleeding. 3. Several compression fractures as described above, stable. No definite acute fractures. 4. Small midline upper abdominal wall hernia including a short knuckle of bowel. Old Electronically Signed: Servando Horton MD at 18:36 EDT ,
--- NOTE | 2024-04-15 15:57 | EX.ED.UPPERE ---
HPI History of Present Illness Chief Complaint: Upper Extremity Injury Informant: patient and EMS Narrative Narrative: 58-year-old male had a fall down a flight of steps a week ago, he has Denisse disease, he sustained a hematoma to his right shoulder and was transferred to [facility] Because we do not have any factor IX and it was suspected that he had his head. He states that they recommended he stay get other testing however he decided against that and left. He presents now here saying that since then he has had slurred speech, weakness in his right arm and his legs, all of which has worsened in the past week. He states the weakness in his legs has resulted in multiple other falls that are been relatively minor, he states he denies any other major injuries like to when he had a week ago, but when asked if he hit his head he states that he thinks so once or twice cannot give us any other details. Denies any loss of consciousness. [facility] Medical History Hx of fracture of wrist Factor IX (functional) deficiency Home Medications ?Medication ?Instructions ?Recorded ?Last Taken ?Type NK 04/10/24 Unknown History Allergy/AdvReac Type Severity Reaction Status Date / Time ciprofloxacin (From Cipro) Allergy Shortness Verified 04/08/24 11:27 of breath codeine Allergy Shortness Verified 04/08/24 11:27 of breath Surgical History History of partial surgical removal of colon History of colon surgery Hx of splenectomy Social History Smoking Status: Current every day smoker tobacco type: cigarettes ROS ROS ED Constitutional Constitutional ED: Denies chills or fever(s) Eyes Eyes: Denies change in vision or diplopia ENT ENT ED: Denies rhinorrhea or sore throat Cardiovascular Cardiovascular: Reports chest pain; Denies palpitations Respiratory/Chest Respiratory/Chest: Denies cough or dyspnea Gastrointestinal Gastrointestinal: Reports abdominal pain; Denies diarrhea, nausea or vomiting Genitourinary Genitourinary ED: Reports other Details: Dark urine no gross hematuria ; Denies dysuria or hematuria Musculoskeletal Musculoskeletal: Reports back pain, neck pain and other Details: Right shoulder pain Integumentary Denies abscess or rash Neurologic Neurologic: Reports headache(s), paresthesias RUE and weakness Psychiatric Psychiatric: Denies suicidal thoughts EXAM Physical Exam Const Vital Signs: 04/15/24 15:22 04/15/24 15:23 Temperature 98.6 F Temperature Source Oral Pulse Rate 102 H 104 H Respiratory Rate 21 H Blood Pressure 140/104 H Blood Pressure Mean 116 Pulse Ox 98 Oxygen Delivery Method Room Air Room Air Positive well nourished and well developed General Appearance ED: well developed and NAD HEENT Reports moist mucous membranes normocephalic and atraumatic Eyes PERRL and EOMs intact bilaterally Neck full ROM and supple Neck Narrative: Mild diffuse midline General: tenderness Chest Wall Chest Narrative: Purpuric ecchymosis anterior chest wall emanating from the right axilla. No subcutaneous emphysema. No sternal tenderness. No splinting with deep inspiration. Resp normal respiratory effort and clear to auscultation bilaterally Cardio regular rate, regular rhythm and no murmurs GI non-distended GI Narrative: Mild diffuse tenderness no guarding or rebound Auscultation: normoactive bowel sounds Palpation: soft Back/Spine no CVA tenderness Back/Spine Narrative: Normal inspection but multiple areas of tenderness including diffuse thoracic midline more higher than lower. Tenderness in the left low back paraspinal musculature which is normal on inspection there is no Lewis Ochoa sign. General Back: other Able to sit up up with pain Extremity normal to inspection General Extremety ED: Negative for edema, pulses abnormal or tenderness General Extremity: Negative for edema or pulses abnormal Neuro oriented x3 and CN's II-XII intact bilaterally Neuro Narrative: See NIHSS. Weak on the right side but not the left. Sensorium / Orientation: awake and alert Psych mental status grossly normal Skin no wounds Skin Narrative: Purpura right posterior shoulder and down into the axilla and chest wall right back and chest. NIHSS NIHSS Initial: 1a Level of Consciousness: 0 1b LOC Questions (Score 2 if aphasic/stupor): 0 1c LOC Commands (Only score 1st attempt): 0 2 Best Gaze (If aphasic, use reflexive mvmts.): 0 3 Visual: 0 4 Facial Palsy: 0 5 Motor Arm Right (UN = amputation/fusion): 3 5 Motor Arm Left: 0 6 Motor Leg Right: 1 6 Motor Leg Left: 0 7 Limb ataxia (Only + if out of proportion): 0 8 Sensory (Aphasia/stupor=0 or 1, coma=2): 1 9 Best Language: 0 10 Dysarthria (mute, coma=2, intubated=UN): 1 11 Extinction and Inattention (only scored if +): 0 Total Score: 6 MDM MDM MDM Narrative Medical decision making narrative: I am concerned about this patient's neurologic symptoms, they have been present for 1 week according to him and worsening. However he has this large purpuric/ecchymotic area that I am concerned about blood loss and possibly continuing to have bleeding there, especially with his hemoglobin 1.2 g lower than he was last week, and he is also having abdominal pain, back pain, and neck pain. For these reasons I feel that he needs to have all of these areas reimaged with CT acutely. This was done I reviewed all of the imaging and the reports which I agree with: CT head, cervical spine, chest/abdomen/pelvis. Basically shows evolution of the hematoma in the subscapularis area and right upper chest/axilla. There are also compression fractures of multiple thoracic vertebrae that were not mentioned on the other imaging nor an old CT of the abdomen/pelvis which only saw an L2 fracture. It is unclear when these could have occurred. Certainly they could have occurred within the past week. On the CT of the head, old infarcts of both basal ganglia are seen and no hemorrhage. Unclear if either of these could be causing the symptoms on his right side but he certainly has focal neurologic deficits on the right side and he is not limited by pain with regards to his right upper extremity or his right lower extremity. I was going to discussed with the hospitalist for admission, however it was then brought to my attention that the patient was out of the bed trying to urinate in a bottle, unbeknownst to the staff at the time, and she witnessed him topple over and hit his head on the concrete wall. He did not lose consciousness. We do not have factor IX to provide him. I did send him to CT and repeat it given this injury and his bleeding disorder. I reviewed the images and on my interpretation it does not show an acute hemorrhage or skull fracture. The patient states he is doing fine from it. His neurologic deficits are stable. Radiology is stating that the compression fractures do not appear to be acute. I discussed with hospitalist and they think the patient needs a higher level of care given the fact that we do not have factor IX. In addition, the patient has a mild leukocytosis and multiple immature white blood cells on his peripheral smear. I am still waiting on urinalysis it is in the lab and pending but at this point there are no other signs of an acute infection clinically or radiographically. Given that his urine was discolored/dark I did send a CPK it is within normal limits at 245. Urinalysis returned positive for nitrite and 2+ bacteria, trace leukocyte esterase but otherwise unremarkable, I am sending it for culture. Since patient was recently at [facility], I attempted to transfer him there first. They state that with his acute/subacute neuro symptoms, they do not have beds appropriate for him available right now so they do not have the capacity to accept him and will not likely for the next 2 days. Therefore I attempted to keep him in the [facility] system so that the records from [facility] Will be available to the accepting service, starting with [facility] since they are closer. Accepted there by Dr. Li, who reviewed records in the [facility] system and asked me to add on a urine drug screen since apparently this patient has a history of some substance abuse which I did. Lab Data Attestation: I reviewed the patient's lab results. Labs: Laboratory Tests 04/15/24 Range/Units 15:58 WBC RODEO CLOWN Corrected WBC 12.1 H (4.4-11.0) K/mm3 RBC 2.79 L (4.6-6.2) M/mm3 Hgb 8.2 L (13.0-16.5) g/dL Hct 26.4 L (40-54) % MCV 94.6 H D (80-94) fL MCH 29.4 (27.0-32.0) pg MCHC 31.1 L (32-36) g/dL RDW Std Deviation 60.8 H (35.1-43.9) fl RDW Coeff of Uday 22.7 H (11.6-14.6) % Plt Count 426 (150-450) K/mm3 MPV 9.2 (6.2-12.0) fl Neut % (Auto) Not Reportable Absolute Neuts (auto) 8.0 H (2.0-7.7) X10^3/uL Absolute Lymphs (auto) 1.60 (0.83-4.51) X10^3/uL Total Counted 100 (MANUAL DIFF) Neutrophils % (Manual) 65 (47-70) % Band Neutrophils % 1 (0-5) % Lymphocytes % (Manual) 13 L (19-41) % Monocytes % (Manual) 8 (0-10) % Eosinophils % (Manual) 6 H (0-5) % Metamyelocytes % 3 H (0-1) % Myelocytes % 4 H (0-0) % Nucleated RBCs/100 WBC 20 H (0-5) % Diff Path Review May foll Platelet Estimate ADEQUATE (ADEQ) Plt Morphology Comment GIANT Polychromasia 2+ Anisocytosis 2+ Target Cells 1+ [place] Cells 1+ PT 13.6 (11.7-14.9) SECONDS INR 1.0 Sodium 140 (136-145) mmol/L Potassium 4.1 (3.5-5.1) mmol/L Chloride 109 H (98-107) mmol/L Carbon Dioxide 26.0 (21.0-32.0) mmol/L Anion Gap 5 (5-15) BUN 15 (7-18) mg/dL Creatinine 1.11 (0.70-1.30) mg/dL Estim Creat Clear Calc 89.58 ml/min Est GFR (MDRD) Af Amer 88 (>60) mL/min Est GFR (MDRD) Non-Af 72 (>60) mL/min BUN/Creatinine Ratio 13.5 (10-20) RATIO Glucose 104 (74-106) mg/dL Calcium 8.8 (8.5-10.1) mg/dL Total Creatine Kinase 245 (39-308) U/L Troponin I High Sens 10 (3.0-78.0) pg/mL Blood Type A POSITIVE Antibody Screen NEGATIVE Radiography Diagnostic Testing: Clinical Impression(s) from Imaging Studies Brain CT 04/15/24 15:40 IMPRESSION: No change or acute abnormality. 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 Electronically Signed: Servando Horton MD at 18:12 EDT , Cervical Spine CT 04/15/24 15:40 IMPRESSION: There is no definite acute fracture/dislocation. Degenerative changes.. Electronically Signed: Servando Horton MD at 18:16 EDT , Chest/Abdomen/Pelvis CT 04/15/24 15:40 IMPRESSION: 1. Limited as above. 2. Extensive intramuscular hematomas and axillary hemorrhages of the right shoulder and upper right chest wall are seen, probably slightly improved. Definitely no worsening or active bleeding. 3. Several compression fractures as described above, stable. No definite acute fractures. 4. Small midline upper abdominal wall hernia including a short knuckle of bowel. Old Electronically Signed: Servando Horton MD at 18:36 EDT , Brain CT 04/15/24 19:28 IMPRESSION: No acute abnormality. No change since 1.5 hours earlier. Electronically Signed: Servando Horton MD at 20:14 EDT , Rhythm Strip Rhythm Strip: Sinus Rhythm Rate: 100 Ectopy: None EKG Initial EKG: Attestation: I personally reviewed and interpreted this EKG as follows: Interpretation: No Acute Injury Pattern and Sinus Tachycardia Management Discussion w/another healthcare provider: Hospitalist and Health Services Coordinator Discharge Plan Triage Chief Complaint: Upper Extremity Injury ED Provider: Kevin Diaz Dx/Rx/DC Orders Clinical Impression: Hematoma of right upper extremity, Factor IX deficiency, ABLA (acute blood loss anemia), Acute right hemiparesis, Dysarthria, Closed head injury Prescriptions: No Action NK Primary Care Provider: Care Physician,No Primary Referrals: Care Physician,No Primary [Primary Care Provider] - Print Language: [place] Disposition Disposition: Acute Care Hospital Discharge Location: [facility] Stroke Documentation Questions Stroke Team Activated: No (Symptoms for 1 week/timing) Was Patient considered for Endovascular Intervention?: No-CTA not indicated IV Thrombolytic Administered: No
[2024-04-15 16:14] LABS: Hematocrit 26.4 % (40-54); Hemoglobin 8.2 g/dL (13.0-16.5); Mean Corp Hgb Conc 31.1 g/dL (32-36); Mean Corpuscular Hgb 29.4 pg (27.0-32.0); Mean Corpuscular Volume 94.6 fL (80-94); Mean Platelet Vol. 9.2 fl (6.2-12.0); POSITIVE COUNT YES; POSITIVE MORPHOLOGY YES; Platelet Count 426 K/mm3 (150-450); RBC Distribution Width CV 22.7 % (11.6-14.6); RBC Distribution Width SD 60.8 fl (35.1-43.9); Red Blood Count 2.79 M/mm3 (4.6-6.2)
[2024-04-15 16:24] LABS: Prothrombin Time (Protime)PT. 13.6 SECONDS (11.7-14.9)
[2024-04-15 16:58] LABS: Anion Gap 5 (5-15); BUN 15 mg/dL (7-18); BUN/Creat Ratio 13.5 RATIO (10-20); CPK Total, Creatine Kinase 245 U/L (39-308); Calcium,Total 8.8 mg/dL (8.5-10.1); Chloride 109 mmol/L (98-107); Creatinine, Serum 1.11 mg/dL (0.70-1.30); EST Glomerular Filtration Rate 72 mL/min (>60); Est Glom Filt Rate - Afr Amer 88 mL/min (>60); Estimated Creatinine Clearance 89.58 ml/min; Glucose 104 mg/dL (74-106); Potassium 4.1 mmol/L (3.5-5.1); Sodium Level 140 mmol/L (136-145); Troponin-I HS 10 pg/mL (3.0-78.0)
[2024-04-15 18:18] LABS: Differential Indicated MANUAL DIFF
[2024-04-15 18:31] LABS: Metamyelocyte 3 % (0-1); Neutrophil-Band 1 % (0-5); Neutrophil-Segmented 65 % (47-70); Total Cells Counted 100 (MANUAL DIFF)
[2024-04-15 18:32] LABS: Corrected WBC 12.1 K/mm3 (4.4-11.0); Eosinophil 6 % (0-5); Lymphocyte 13 % (19-41); Monocyte 8 % (0-10); Myelocyte 4 % (0-0); Nucleated Red Bld Cells,Manual 20 % (0-5)
[2024-04-15 18:39] LABS: Anisocytosis 2+
[2024-04-15 18:40] LABS: Polychromasia 2+
[2024-04-15 18:41] LABS: Target Cells 1+
[2024-04-15 18:44] LABS: Burr Cells 1+
[2024-04-15 18:46] LABS: Platelet Estimate ADEQUATE (ADEQ); Platelet Morphology GIANT
--- NOTE | 2024-04-15 19:13 | ED.RN ---
This RN told the pt to sit on the side of the bed to pee and I noticed he was off the heart monitor and went in to check on him and he was standing. This RN witnessed the patient fall forward and hit his head on the wall. Pt did not lose consciousness or hit the floor. This RN informed Dr Diaz.
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
[2024-04-15 19:31] LABS: Mucous, Urine 0 SEEN /hpf (<or=2+); Red Blood Cells-Urine 0 SEEN /hpf (0-5); Squamous Epithelial Cells - UA 0 SEEN /hpf (0-5); White Blood Cells 0 SEEN /hpf (0-5)
[2024-04-15 19:33] LABS: Color, Urine Yellow (Yellow); Glucose, Dipstick Normal (Normal); Ketone-Dipstick Negative (Negative); Leukocyte Esterase-Dipstick 25 /ul (Negative); Nitrite-Dipstick Positive (Negative); Occult Blood-Urine Negative /ul (Negative); Protein-Dipstick 15 mg/dl (Negative); Urine Clarity Sl. Cloudy (Clear); Urine Urobilinogen 12 mg/dl (Normal)
[2024-04-15] MEDS: Morphine 4 MG/ML Syringe IV (20:00)
[2024-04-15 20:07] LABS: Urine Bilirubin Dipstick 1 mg/dL (Negative)
[2024-04-15 20:29] LABS: Amorphous Sediment R; Bacteria 2+ /hpf (None Seen)
[2024-04-15 22:10] LABS: Amphetamine Urine VISTA POSITIVE (<1000 ng/mL); Barbiturate Urine VISTA NEGATIVE (< 200 ng/mL); Benzodiazepine Urine VISTA POSITIVE (< 200 ng/mL); Cocaine Urine VISTA NEGATIVE (< 300 ng/mL); Ecstacy Urine VISTA POSITIVE (< 500 ng/mL); Methadone Urine VISTA NEGATIVE (< 300 ng/mL); PCP Urine VISTA POSITIVE (< 25 ng/mL); THC Urine VISTA NEGATIVE (< 50 ng/mL); Vista UDS pH Range 6
--- NOTE | 2024-04-15 23:21 | ED.RN ---
pt ripped off cardiac leads and blood pressure cuff.
[2024-04-16] MEDS: Morphine 4 MG/ML Syringe IV (00:23)
--- NOTE | 2024-04-16 00:32 | ED.RN ---
This RN walked by the room and the patient was standing by the sink peeing. This RN reiterated that he can not get up without help and got the pt back in bed. The patient stated Yeah I almost fell again. And this RN stated that is why you cannot get up without help. You fell earlier today with me and I do not want you to fall again.
[2024-04-16 01:00] VITALS: BP 177/108; PULSE 85; RESP 25; O2SAT 92
[2024-04-16 01:20] VITALS: BP 177/108; PULSE 89; RESP 25; TEMP 36.8; O2SAT 93
--- NOTE | 2024-04-16 01:23 | ED.RN ---
This RN went into the patient room and the patient had his shirt on and ripped his wrist bands off. This RN tried to get the patient to remove his shirt and he refused. This RN placed a gown on over top of his shirt.
[2024-04-16 14:36] LABS: Pathologist Review Reviewed
== END 2024-04-16 01:58 | disposition short-term general hospital (02) ==
PROVIDERS: Emergency Provider Emergency Medicine; Visit Provider Emergency Medicine
DX: S20.211A Contusion of right front wall of thorax, initial encounter (principal); D67 Hereditary factor IX deficiency; S22.059A Unspecified fracture of T5-T6 vertebra, initial encounter for closed fracture; S32.029A Unspecified fracture of second lumbar vertebra, initial encounter for closed fracture; S22.069A Unspecified fracture of T7-T8 vertebra, initial encounter for closed fracture; S22.089A Unspecified fracture of T11-T12 vertebra, initial encounter for closed fracture; G81.91 Hemiplegia, unspecified affecting right dominant side; S40.021A Contusion of right upper arm, initial encounter; S09.90XA Unspecified injury of head, initial encounter; W19.XXXA Unspecified fall, initial encounter; Y92.230 Patient room in hospital as the place of occurrence of the external cause; D62 Acute posthemorrhagic anemia; W10.9XXA Fall (on) (from) unspecified stairs and steps, initial encounter; R47.1 Dysarthria and anarthria; R82.998 Other abnormal findings in urine; R29.706 NIHSS score 6; F17.210 Nicotine dependence, cigarettes, uncomplicated; Z90.49 Acquired absence of other specified parts of digestive tract; Z90.81 Acquired absence of spleen; Z86.73 Personal history of transient ischemic attack (TIA), and cerebral infarction without residual deficits; Z87.898 Personal history of other specified conditions
CPT/HCPCS: 96375; 70450; 71260; 72125; 74177; 80048; 80307; 81001; 82550; 84484; 85025; 85610; 86850; 86900; 86901; 87086; 93005; 96374; 96376; 99284; Q9967; A4216

== ENCOUNTER 2025-01-17 18:34 | Inpatient (IN) | payer SELFPAY ==
[2025-01-17 18:35] VITALS: BP 197/136; PULSE 102; RESP 16; TEMP 36.6; O2SAT 99; BMI 35.9
[2025-01-17 19:22] VITALS: PULSE 69; RESP 24; O2SAT 99
[2025-01-17 20:44] LABS: Hematocrit 46.4 % (40-54); Hemoglobin 16.0 g/dL (13.0-16.5); Immature Granulocytes Count 0.080 X10^3/uL (0.0-0.0); Mean Corp Hgb Conc 34.5 g/dL (32-36); Mean Corpuscular Volume 91.9 fL (80-94); Mean Platelet Vol. 9.7 fl (6.2-12.0); NRBC Flagged by Analyzer 0 % (0-5); Platelet Count 424 K/mm3 (150-450); RBC Distribution Width CV 13.8 % (11.6-14.6); RBC Distribution Width SD 46.5 fl (35.1-43.9); Red Blood Count 5.05 M/mm3 (4.6-6.2); White Blood Count 13.0 K/mm3 (4.4-11.0)
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
[2025-01-17 20:54] LABS: Alcohol, Blood (Medical)-Serum < 10.1 mg/dL (<=10.0)
[2025-01-17 20:55] LABS: AST(SGOT) 45 U/L (<=37); Alanine Aminotransfer ALT/SGPT 46 U/L (<=46); Albumin, Serum 4.1 g/dL (3.5-5.0); Alkaline Phosphatase 133 U/L (40-129); Anion Gap 13 (5-15); BUN 12 mg/dL (4-19); BUN/Creat Ratio 14.6 RATIO (10-20); Calcium,Total 9.3 mg/dL (7.6-11.0); Carbon Dioxide 21.1 mmol/L (21.0-32.0); Chloride 103 mmol/L (98-108); Estimated Creatinine Clearance 124.79 ml/min (50-250); Globulin 3.5 g/dL (2.2-4.2); Glucose 110 mg/dL (70-99); Potassium 4.1 mmol/L (3.3-5.1)
[2025-01-17 21:08] VITALS: PULSE 99; RESP 22; O2SAT 97
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
[2025-01-17 21:25] VITALS: BP 167/113; PULSE 79; RESP 21; TEMP 36.9; O2SAT 100
--- OUTSIDE RECORDS SUMMARY | 2025-01-17 21:33 | XMS RPT_ITS | CCD ---
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 [facility] Brain/Head without Contrast [facility] Imaging Services [address] [place] [address] Brain/Head without Contrast MR#: [id number] Acct: [id number] Name: ISIDRO SMITH Rep #: [id number] : 1965 M 58 From: Servando holliday MD PCP: Care Physician,No Primary Status: REG ER Study: Brain/Head without Contrast Date of Exam: 03/30 01/20 Exam# [id number] Ordering Dr: Kevin Sanchez MD -[id number] STUDY: CT BRAIN WITHOUT CONTRAST REASON FOR EXAM: Male, 58 years old. R sided weakness RADIATION DOSAGE (If Supplied By Facility): = ( 44.99 ) mGy, DLP = ( 779.24 ) mGycm TECHNIQUE: Transaxial CT imaging of the brain was performed without administration of intravenous contrast material. Individualized dose optimization techniques were used for this CT. COMPARISON: 04/10/2024 FINDINGS: Normal soft tissue structures. Normal calvarium. Normal size ventricles and extra-axial spaces for the patient''s age. Normal white matter tracts of the cerebral hemispheres. There are bilateral lacunar infarcts of the basal ganglia and thalami. Normal brainstem. Normal cerebellum. There is no intracranial hemorrhage. There are no findings of an acute ischemic infarction. Normal visualized paranasal sinuses. CT/Brain/Head without Contrast IMPRESSION: No change or acute abnormality. 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 Electronically Signed: Servando Horton MD at 18:12 EDT , CC: Dr. Kevin Sanchez MD; No Primary Care Physician Formal Service Waiter: Signed Normal [facility] CNPNon 04-15-2024 CNPN Normal [facility] CPK Total, Creatine Kinaseon 04-15-2024 CPK TOTAL 245 U/L Normal 39-308 [facility] Comment on above: Order Comment: 'TROP ' Serial specimen #1, #2 or #3: 1 Performed By: #### L 505.5000 #### [facility] [address] [facility] [place], [place], [address] CT Chest, Abd, Pel w/Contras ton 04-15-2024 CT Chest, Abd, Pel w/Contrast [facility] Imaging Services [address] [place], [place] [address] CT Chest, Abd, Pel w/Contrast MR#: [id number] Acct: [id number] Name: ISIDRO SMITH Rep #: [id number] : 1965 M 58 From: Servando holliday MD PCP: Care Physician,No Primary Status: [facility] ER Study: CT Chest, Abd, Pel w/Contrast Date of Exam: Exam# [id number] Ordering Dr: Kevin Sanchez MD -[id number] EXAM: CT CHEST, ABDOMEN AND PELVIS WITH INTRAVENOUS CONTRAST CLINICAL INDICATION: mult falls, pain abd/chest, xmas disease TECHNIQUE: Helically acquired images were obtained of the chest, abdomen and pelvis with intravenous contrast. This CT exam was performed using one or more of the following dose reduction techniques: automated exposure control, adjustment of the mA and/or kV according to patient size, and/or use of iterative reconstruction technique. CONTRAST: IV 100mL [id number] RADIATION DOSE: CTDIvol = 22.30 mGy, DLP = 2199.77 mGy-cm COMPARISON: 12/08/2023, 04/10/2024 FINDINGS: LIMITATIONS: Exam is limited by improper positioning of patient''s arms resulting in significant streak artifact. CHEST: LUNGS AND PLEURAL SPACES: Unremarkable. No mass. No consolidation or edema. No pleural effusion or thickening. No pneumothorax. HEART: Unremarkable. Heart size is normal. No pericardial effusion. MEDIASTINUM: Unremarkable. No mediastinal or hilar adenopathy. Esophagus is unremarkable. No hiatal hernia. THYROID: Unremarkable. No thyroid lesions. ABDOMEN: LIVER: Unremarkable. Homogeneous. No focal mass. GALLBLADDER AND BILE DUCTS: Unremarkable. No calcified gallstones. No gallbladder distention or wall edema. No intra- or extrahepatic biliary ductal dilation. PANCREAS: Unremarkable. No focal cystic or solid mass. SPLEEN: Unremarkable. Normal size without focal cystic or solid mass. ADRENALS: Unremarkable. No nodules. KIDNEYS AND URETERS: Unremarkable. Normal renal size and position. No hydronephrosis. STOMACH AND BOWEL: Evaluation of the GI tract is limited by absence of oral contrast. Cannot exclude stomach wall thickening. No dilated loops of bowel or evidence for obstruction. Cannot exclude segmental thickening of the pollard of the small or large bowel. Cannot exclude enteritis or colitis. Moderate diffuse fecal retention. Diverticulosis without definite diverticulitis. Appendix within normal limits. There is a small midline abdominal wall hernia containing a short knuckle of bowel with no evidence for secondary obstruction. No focal inflammatory change. PELVIS: APPENDIX: No evidence of acute appendicitis. BLADDER: Unremarkable. REPRODUCTIVE: Unremarkable as visualized. No mass. CHEST, ABDOMEN and PELVIS: INTRAPERITONEAL SPACE: Unremarkable. No ascites or other fluid collection. No free air. BONES/JOINTS: No definite acute fractures. Stable partial compression fractures of T6, T8, and T11. Severe compression fracture of L2, stable. Stable appearance of old rib fractures. No suspicious lytic or blastic abnormality. SOFT TISSUES: Again seen are changes from of diffuse soft tissue swelling probably related to hematomas of the right shoulder muscles, especially the subscapularis. Nonspecific edema of the subcutaneous tissues of the upper right chest. Probable bruising in the right axilla. No definite extravasation of contrast or evidence for active bleeding. Overall the findings are likely mildly improved since previous exam. VASCULATURE: Unremarkable. Aorta is non-dilated. No aortic dissection. No obvious central pulmonary embolism although this study was not performed with the pulmonary embolism protocol. LYMPH NODES: Unremarkable. No enlarged lymph nodes. CT/CT Chest, Abd, Pel w/Contrast IMPRESSION: 1. Limited as above. 2. Extensive intramuscular hematomas and axillary hemorrhages of the right shoulder and upper right chest wall are seen, probably slightly improved. Definitely no worsening or active bleeding. 3. Several compression fractures as described above, stable. No definite acute fractures. 4. Small midline upper abdominal wall hernia including a short knuckle of bowel. Old Electronically Signed: Servando Horton MD at 18:36 EDT , CC: Dr. Kevin Sanchez MD; No Primary Care Physician Formal Service Waiter: Signed Normal [facility] Emergency Department Summary on 04-15-2024 Emergency Department Summary [facility] Medical Records Department [address] [place] [address] Emergency Department Summary 04/15/24 MR#: [id number] Acct: [id number] Name: ISIDRO SMITH Rep #: [id number] : 1965 58 From: Kevin Sanchez MD PCP: Care Physician,No Primary Status:REG ER Location: ED HPI History of Present Illness Chief Complaint: Upper Extremity Injury Informant: patient and EMS Narrative Narrative: 58-year-old male had a fall down a flight of steps a week ago, he has [place] disease, he sustained a hematoma to his right shoulder and was transferred to [facility] Because we do not have any factor IX and it was suspected that he had his head. He states that they recommended he stay get other testing however he decided against that and left. He presents now here saying that since then he has had slurred speech, weakness in his right arm and his legs, all of which has worsened in the past week. He states the weakness in his legs has resulted in multiple other falls that are been relatively minor, he states he denies any other major injuries like to when he had a week ago, but when asked if he hit his head he states that he thinks so once or twice cannot give us any other details. Denies any loss of consciousness. 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 Home Medications ???Medication ???Instructions ???Recorded ???Last Taken ???Type NK 04/10/24 Unknown History Allergy/AdvReac Type Severity Reaction Status Date / Time ciprofloxacin (From Cipro) Allergy Shortness Verified 04/08/24 11:27 of breath codeine Allergy Shortness Verified 04/08/24 11:27 of breath Surgical History History of partial surgical removal of colon History of colon surgery Hx of splenectomy Social History Smoking Status: Current every day smoker tobacco type: cigarettes ROS ROS ED Constitutional Constitutional ED: Denies chills or fever(s) Eyes Eyes: Denies change in vision or diplopia ENT ENT ED: Denies rhinorrhea or sore throat Cardiovascular Cardiovascular: Reports chest pain; Denies palpitations Respiratory/Chest Respiratory/Chest: Denies cough or dyspnea Gastrointestinal Gastrointestinal: Reports abdominal pain; Denies diarrhea, nausea or vomiting Genitourinary Genitourinary ED: Reports other Details: Dark urine no gross hematuria ; Denies dysuria or hematuria Musculoskeletal Musculoskeletal: Reports back pain, neck pain and other Details: Right shoulder pain Integumentary Denies abscess or rash Neurologic Neurologic: Reports headache(s), paresthesias RUE and weakness Psychiatric Psychiatric: Denies suicidal thoughts EXAM Physical Exam Const Vital Signs: 04/15/24 15:22 04/15/24 15:23 Temperature 98.6 F Temperature Source Oral Pulse Rate 102 H 104 H Respiratory Rate 21 H Blood Pressure 140/104 H Blood Pressure Mean 116 Pulse Ox 98 Oxygen Delivery Method Room Air Room Air Positive well nourished and well developed General Appearance ED: well developed and NAD HEENT Reports moist mucous membranes normocephalic and atraumatic Eyes PERRL and EOMs intact bilaterally Neck full ROM and supple Neck Narrative: Mild diffuse midline General: tenderness Chest Wall Chest Narrative: Purpuric ecchymosis anterior chest wall emanating from the right axilla. No subcutaneous emphysema. No sternal tenderness. No splinting with deep inspiration. Resp normal respiratory effort and clear to auscultation bilaterally Cardio regular rate, regular rhythm and no murmurs GI non-distended GI Narrative: Mild diffuse tenderness no guarding or rebound Auscultation: normoactive bowel sounds Palpation: soft Back/Spine no CVA tenderness Back/Spine Narrative: Normal inspection but multiple areas of tenderness including diffuse thoracic midline more higher than lower. Tenderness in the left low back paraspinal musculature which is normal on inspection there is no Lewis Ochoa sign. General Back: other Able to sit up up with pain Extremity normal to inspection General Extremety ED: Negative for edema, pulses abnormal or tenderness General Extremity: Negative for edema or pulses abnormal Neuro oriented x3 and CN's II-XII intact bilaterally Neuro Narrative: See NIHSS. Weak on the right side but not the left. Sensorium / Orientation: awake and alert Psych mental status grossly normal Skin no wounds Skin Narrative: Purpura right posterior shoulder and down into the axilla and chest wall right back and chest. NIHSS NIHSS Initial: 1a Level of Consciousness: 0 1b LOC Questions ( (more content not included)... Normal [facility] L501.4020on 04-15-2024 TROPONIN-I HS 10 pg/mL Normal 3.0-78.0 [facility] Comment on above: Order Comment: 'TROP ' Serial specimen #1, #2 or #3: 1 Result Comment: Clau iverson Note: New Test Units and Gender Specific Reference Ranges. For more information see Policy Stat Procedure [place] High Sensitivity Troponin (TNIH) and attachments. Performed By: #### L 505.5000 #### [facility] [address] [place], [address] Prothrombin Time w/INRon INR Coag (PPP) [Relative time] 1.0 {INR} Normal [facility] Comment on above: Performed By: #### M 100.2200 #### [facility] [address] [place], [address] PT Coag (PPP) [Time] 13.6 s Normal 11.7-14.9 [facility] Comment on above: Performed By: #### M 100.2200 #### [facility] [address] [place], [address] Spine Cervical without Contr ason 04-15-2024 Spine Cervical without Contras [facility] Imaging Services [address] [place] [address] Spine Cervical without Contras MR#: [id number] Acct: [id number] Name: ISIDRO SMITH Rep #: [id number] : 1965 M 58 From: Servando holliday MD PCP: Care Physician,No Primary Status: REG ER Study: Spine Cervical without Contras Date of Exam: Exam# [id number] Ordering Dr: Kevin Sanchez MD -[id number] STUDY: CT CERVICAL SPINE WITHOUT CONTRAST REASON FOR EXAM: Male, 58 years old. fall, neck trauma RADIATION DOSAGE (If Supplied By Facility): CTDIvol = ( 27.38 ) mGy, DLP = ( 521.37 ) mGycm TECHNIQUE: High resolution transaxial imaging was performed without contrast material. Sagittal and coronal images were reconstructed. Individualized dose optimization techniques were used for this CT. COMPARISON: None FINDINGS: No definite acute fracture/dislocation. The cervical junction is intact. C1-C2 articulation is intact. Curvature is within normal limits. There is normal alignment. Facet joints are intact at all levels bilaterally. No jumped facets. There is multilevel spondyloarthropathy. Multilevel degenerative disc disease seen. Multilevel loss of disc height. Multilevel posterior marginal osteophytes and disc bulges. Multilevel neural foraminal narrowing. Visualized paraspinal soft tissues and structures are unremarkable. CT/Spine Cervical without Contras IMPRESSION: There is no definite acute fracture/dislocation. Degenerative changes.. Electronically Signed: Servando Horton MD at 18:16 EDT , CC: Dr. Kevin Sanchez MD; No Primary Care Physician Formal Service Waiter: Signed Normal [facility] Type AND Screenon 04-15-2024 Ab SCREEN GEL Negative Normal [facility] Comment on above: Order Comment: T Performed By: #### M 100.2200 #### [facility] [address] [place], [place], [address] Urinalysis, Completeon 04-15 AMORPHOUS R Normal [facility] Comment on above: Order Comment: CLEAN CATCH Performed By: #### L 400.0001 #### [facility] [address] [place], [address] BACTERIA 2+ /hpf Normal None Seen [facility] Comment on above: Order Comment: CLEAN CATCH Performed By: #### L 400.0001 #### [facility] [address] [place], [address] EPI,SQUAMOUS 0 SEEN Normal 0-5 [facility] Comment on above: Order Comment: CLEAN CATCH Performed By: #### L 400.0001 #### [facility] [address] [place], [address] Mucus Ql (Urine sed) 0 SEEN Normal [facility] Comment on above: Order Comment: CLEAN CATCH Performed By: #### L 400.0001 #### [facility] [address] [place], [address] RBC 0 SEEN Normal 0-5 [facility] Comment on above: Order Comment: CLEAN CATCH Performed By: #### L 400.0001 #### [facility] [address] [place] [id number] WBC 0 SEEN Normal 0-5 [facility] Comment on above: Order Comment: CLEAN CATCH Performed By: #### L 400.0001 #### [facility] [address] [place] [address] Urine Drug Screen (VISTA)on 04-15-2024 AMPHETAMINES Positive Abnormal <1000 ng/mL [facility] Comment on above: Performed By: #### L 505.5000 #### [facility] [address] [place] [address] BARBITIURATES Negative Normal < 200 ng/mL [facility] Comment on above: Performed By: #### L 505.5000 #### [facility] [address] [place] [address] BENZODIAZIPINE Positive Abnormal < 200 ng/mL [facility] Comment on above: Performed By: #### L 505.5000 #### [facility] [address] [place] [address] COCAINE Negative Normal < 300 ng/mL [facility] Comment on above: Performed By: #### L 505.5000 #### [facility] [address] [place] [address] ECSTACY Positive Abnormal < 500 ng/mL [facility] Comment on above: Performed By: #### L 505.5000 #### [facility] [address] [place] [address] METHADONE Negative Normal < 300 ng/mL [facility] Comment on above: Performed By: #### L 505.5000 #### [facility] [address] [place], [address] OPIATES Negative Normal < 300 ng/mL [facility] Comment on above: Performed By: #### L 505.5000 #### [facility] [address] [place], [address] PCP Positive Abnormal < 25 ng/mL [facility] Comment on above: Performed By: #### L 505.5000 #### [facility] [address] [place], [address] THC Negative Normal < 50 ng/mL [facility] Comment on above: Performed By: #### L 505.5000 #### [facility] [address] [place], [address] VISTA UDS PH 6 Normal [facility] Comment on above: Performed By: #### L 505.5000 #### [facility] [address] [place], [address] Basic metabolic 2000 panelon 04-13-2024 Anion gap [Moles/Vol] 10 mmol/L Normal 8-15 [facility] Comment on above: Order Comment: Speci men Type: BLOOD SPECIMENOrdering Facility: [facility] Address: [address] [place] [address] Performed By: #### 2 4321-2 ####[facility]ORY[facility]IA [id number] [place] [address] [place] Calcium [Mass/Vol] 8.0 mg/dL Low 8.5-10.2 [facility] Comment on above: Order Comment: Speci men Type: BLOOD SPECIMENOrdering Facility: [facility] Address: [facility] [place] [address] Performed By: #### 2 4321-2 ####[facility] [id number] [place] [address] [place] Chloride [Moles/Vol] 105 mmol/L Normal 98-107 [facility] Comment on above: Order Comment: Speci men Type: BLOOD SPECIMENOrdering Facility: [facility] Address: [address] [place] [address] Performed By: #### 2 4321-2 ####[facility]ORATORYCLIA [id number] [place] [id number] [place] CO2 [Moles/Vol] 24 mmol/L Normal 22-30 [facility] Comment on above: Order Comment: Speci men Type: BLOOD SPECIMENOrdering Facility: [facility] Address: [address] [place] [address] Performed By: #### 2 4321-2 ####[facility]ORATORY[facility]IA [id number] [address] Creatinine [Mass/Vol] 0.90 mg/dL Normal 0.73-1.22 [facility] Comment on above: Order Comment: Speci men Type: BLOOD SPECIMENOrdering Facility: [facility] Address: [address] [place] [address] Performed By: #### 2 4321-2 ####[facility]ORATORYCLIA [id number] [address] Creatinine and Glomerular filtration rate.predicted panel (S/P/Bld) 100 mL/min/1.73m??? Normal >=60 [facility] Comment on above: Order Comment: Speci men Type: BLOOD SPECIMENOrdering Facility: [facility] Address: [address] [place] [address] Result Comment: Mariaa mated Glomerular Filtration Rate (eGFR) is calculated using the 2020 CKD-EPI creatinine equation. This equation utilizes serum creatinine, sex, and age as parameters. The creatinine assay has traceable calibration to isotope dilution-mass spectrometry. Refer to KDIGO guidelines for clinical interpretation. In patients with unstable renal function, e.g. those with acute kidney injury, the eGFR may not accurately reflect actual GFR. Performed By: #### 2 4321-2 ####[facility] LABORATORYCLIA [id number] [place] [id number] [place] Glucose [Mass/Vol] 99 mg/dL Normal 74-99 [facility] Comment on above: Order Comment: Speci caitie Type: BLOOD SPECIMENOrdering Facility: [facility] Address: [address] [place] [id number] Result Comment: The British Diabetes Association (ADA) provides guidance for cutoff values for fasting glucose and random glucose. The ADA defines fasting as no caloric intake for at least 8 hours. Fasting plasma glucose results between 100 to 125 mg/dL indicate increased risk for diabetes (prediabetes).Fasting plasma glucose results greater than or equal to 126 mg/dL meet the criteria for diagnosis of diabetes. In the absence of unequivocal hyperglycemia, results should be confirmed by repeat testing. In a patient with classic symptoms of hyperglycemia or hyperglycemic crisis, random plasma glucose results greater than or equal to 200 mg/dL meet the criteria for diagnosis of diabetes.Reference: Standards of Medical Care in Diabetes 2016, British Diabetes Association. Diabetes Care. 2016.39(Suppl 1). Performed By: #### 2 4321-2 ####[facility] LABORATORYCLIA [id number] [place] [address] [place] Potassium [Moles/Vol] 3.3 mmol/L Low 3.7-5.1 [facility] Comment on above: Order Comment: Kartik caitie Type: BLOOD SPECIMENOrdering Facility: [facility] Address: [address] [place] [address] Performed By: #### 2 4321-2 ####[facility] LABORATORYCLIA [id number] [place] [address] [place] Sodium [Moles/Vol] 139 mmol/L Normal 136-144 [facility] Comment on above: Order Comment: Luis Danieli men Type: BLOOD SPECIMENOrdering Facility: [facility] Address: [address] [id number] Performed By: #### 2 4321-2 ####[facility] LABORATORYCLIA [id number] [place] [address] [place] Urea nitrogen [Mass/Vol] 24 mg/dL Normal 9-24 [facility] Comment on above: Order Comment: Speci men Type: BLOOD SPECIMENOrdering Facility: [facility] Address: [address] [place] [address] Performed By: #### 2 4321-2 ####[facility] LABORATORYCLIA [id number] [place] [id number] [place] CASE MANAGEMon 04-13-2024 CASE MANAGEM Normal [facility] CBC W Auto Differential pane l (Bld)on 04-13-2024 Basophils (Bld) [#/Vol] 0.06 10*3/uL Normal <0.11 [facility] Comment on above: Order Comment: Speci men Type: BLOOD SPECIMENOrdering Facility: [facility] Address: [address] [place] [address] Performed By: #### 5 7021-8 ####[facility] LABORATORYCLIA [id number] [address] STATES [facility] Basophils/100 WBC (Bld) 0.4 % Normal [facility] Comment on above: Order Comment: Speci men Type: BLOOD SPECIMENOrdering Facility: [facility] Address: [address] [place] [address] Performed By: #### 5 7021-8 ####[facility]ORATORYCLIA [id number] [address] STATES [facility] Differential cell count method Nom (Bld) Auto Normal [facility] Comment on above: Order Comment: Speci men Type: BLOOD SPECIMENOrdering Facility: [facility] Address: [address] [place] [address] Performed By: #### 5 7021-8 ####[facility]ORATORYCLIA [id number] [place] [address] [place] Eosinophils (Bld) [#/Vol] 0.42 10*3/uL Normal <0.46 [facility] Comment on above: Order Comment: Speci men Type: BLOOD SPECIMENOrdering Facility: [facility] Address: [address] [place] [address] Performed By: #### 5 7021-8 ####[facility] LABORATORYCLIA [id number] [place] [address] [place] Eosinophils/100 WBC (Bld) 2.7 % Normal [facility] Comment on above: Order Comment: Speci men Type: BLOOD SPECIMENOrdering Facility: [facility] Address: [address] [place] [address] Performed By: #### 5 7021-8 ####[facility]ORATORYCLIA [id number] [address] [place] Erythrocyte distribution width (RBC) [Ratio] 20.0 % High 11.5-15.0 [facility] Comment on above: Order Comment: Speci men Type: BLOOD SPECIMENOrdering Facility: [facility] Address: [address] [place] [address] Performed By: #### 5 7021-8 ####[facility] LABORATORYCLIA [id number] [address] [place] [facility] Hematocrit (Bld) [Volume fraction] 27.2 % Low 39.0-51.0 [facility] Comment on above: Order Comment: Speci men Type: BLOOD SPECIMENOrdering Facility: [facility] Address: [address] [place] [address] Performed By: #### 5 7021-8 ####[facility] LABORATORYCLIA [id number] [address] Hemoglobin (Bld) [Mass/Vol] 8.7 g/dL Low 13.0-17.0 [facility] Comment on above: Order Comment: Speci men Type: BLOOD SPECIMENOrdering Facility: [facility] Address: [address] [place] [address] Performed By: #### 5 7021-8 ####[facility] LABORATORYCLIA [id number] [address] Immature granulocytes (Bld) [#/Vol] 0.55 10*3/uL High <0.10 [facility] Comment on above: Order Comment: Speci men Type: BLOOD SPECIMENOrdering Facility: [facility] Address: [address] [place] [address] Performed By: #### 5 7021-8 ####[facility]ORATORYCLIA [id number] [address] Immature granulocytes/100 WBC (Bld) 3.6 % Normal [facility] Comment on above: Order Comment: Speci men Type: BLOOD SPECIMENOrdering Facility: [facility] Address: [address] [place] [address] Performed By: #### 5 7021-8 ####[facility]ORATORYCLIA [id number] [address] [place] Lymphocytes (Bld) [#/Vol] 4.03 10*3/uL High 1.00-4.00 [facility] Comment on above: Order Comment: Speci men Type: BLOOD SPECIMENOrdering Facility: [facility] Address: [address] [place] [address] Performed By: #### 5 7021-8 ####[facility] LABORATORYCLIA [id number] [address] Lymphocytes/100 WBC (Bld) 26.2 % Normal [facility] Comment on above: Order Comment: Speci men Type: BLOOD SPECIMENOrdering Facility: [facility] Address: [address] [place] [address] Performed By: #### 5 7021-8 ####[facility]ATORYCLIA [id number] [address] [place] MCH (RBC) [Entitic mass] 29.7 pg Normal 26.0-34.0 [facility] Comment on above: Order Comment: Speci men Type: BLOOD SPECIMENOrdering Facility: [facility] Address: [address] [place] [address] Performed By: #### 5 7021-8 ####[facility] LABORATORYCLIA [id number] [address] [place] [facility] MCHC (RBC) [Mass/Vol] 32.0 g/dL Normal 30.5-36.0 [facility] Comment on above: Order Comment: Speci men Type: BLOOD SPECIMENOrdering Facility: [facility] Address: [address] [place] [address] Performed By: #### 5 7021-8 ####[facility]ATORYCLIA [id number] [place] [address] [place] MCV (RBC) [Entitic vol] 92.8 fL Normal 80.0-100.0 [facility] Comment on above: Order Comment: Speci men Type: BLOOD SPECIMENOrdering Facility: [facility] Address: [address] [place] [address] Performed By: #### 5 7021-8 ####[facility] LABORATORYCLIA [id number] [place] [address] [place] Monocytes (Bld) [#/Vol] 1.28 10*3/uL High <0.87 [facility] Comment on above: Order Comment: Speci men Type: BLOOD SPECIMENOrdering Facility: [facility] Address: [address] [place] [address] Performed By: #### 5 7021-8 ####[facility]ORATORYCLIA [id number] [address] [place] Monocytes/100 WBC (Bld) 8.3 % Normal [facility] Comment on above: Order Comment: Speci men Type: BLOOD SPECIMENOrdering Facility: [facility] Address: [address] [place] [address] Performed By: #### 5 7021-8 ####[facility] LABORATORYCLIA [id number] [place] [address] [place] Neutrophils (Bld) [#/Vol] 9.03 10*3/uL High 1.45-7.50 [facility] Comment on above: Order Comment: Speci men Type: BLOOD SPECIMENOrdering Facility: [facility] Address: [address] [place] [address] Performed By: #### 5 7021-8 ####[facility]ATORYCLIA [id number] [address] [place] Neutrophils/100 WBC (Bld) 58.8 % Normal [facility] Comment on above: Order Comment: Speci men Type: BLOOD SPECIMENOrdering Facility: [facility] Address: [address] [place] [address] Performed By: #### 5 7021-8 ####[facility] LABORATORYCLIA [id number] [address] [place] Nucleated RBC (Bld) [#/Vol] 3.43 10*3/uL High <0.01 [facility] Comment on above: Order Comment: Speci men Type: BLOOD SPECIMENOrdering Facility: [facility] Address: [address] [place] [address] Performed By: #### 5 7021-8 ####[facility]ORATORYCLIA [id number] [address] [place] Nucleated RBC/100 WBC (Bld) [Ratio] 22.3 /100 WBC Normal [facility] Comment on above: Order Comment: Speci men Type: BLOOD SPECIMENOrdering Facility: [facility] Address: [address] [place] [address] Result Comment: Revi ewed Performed By: #### 5 7021-8 ####[facility]ORATORYCLIA [id number] [address] [place] Platelet mean volume (Bld) [Entitic vol] 10.0 fL Normal 9.0-12.7 [facility] Comment on above: Order Comment: Speci men Type: BLOOD SPECIMENOrdering Facility: [facility] Address: [address] [place] [address] Performed By: #### 5 7021-8 ####[facility]ORATORYCLIA [id number] [place] [address] [place] Platelets (Bld) [#/Vol] 280 10*3/uL Normal 150-400 [facility] Comment on above: Order Comment: Speci men Type: BLOOD SPECIMENOrdering Facility: [facility] Address: [address] [place] [address] Performed By: #### 5 7021-8 ####[facility]ORATORYCLIA [id number] [address] [place] RBC (Bld) [#/Vol] 2.93 10*6/uL Low 4.20-6.00 [facility] Comment on above: Order Comment: Speci men Type: BLOOD SPECIMENOrdering Facility: [facility] Address: [address] [place] [address] Performed By: #### 5 7021-8 ####[facility]ORATORYCLIA [id number] [place] [address] [place] WBC (Bld) [#/Vol] 15.37 10*3/uL High 3.70-11.00 [facility] Comment on above: Order Comment: Speci men Type: BLOOD SPECIMENOrdering Facility: [facility] Address: [address] [place] [address] Performed By: #### 5 7021-8 ####[facility] LABORATORYCLIA [id number] [address] [place] CNDSon 04-13-2024 CNDS Normal [facility] Hgb Bld-mCncon 04-13-2024 Hemoglobin (Bld) [Mass/Vol] 7.8 g/dL Low 13.0-17.0 [facility] Comment on above: Order Comment: Speci men Type: BLOOD SPECIMENOrdering Facility: [facility] Address: [address] [place] [address] Performed By: #### 7 18-7 ####[facility] LABORATORYCLIA [id number] [place] [address] [place] Basic metabolic 2000 panelon 04-12-2024 Anion gap [Moles/Vol] 10 mmol/L Normal 02-11 [facility] Comment on above: Order Comment: Speci men Type: BLOOD SPECIMENOrdering Facility: [facility] Address: [address] [place] [address] Performed By: #### 2 4321-2 ####[facility]ORATORYCLIA [id number] [address] [place] Calcium [Mass/Vol] 8.3 mg/dL Low 8.5-10.2 [facility] Comment on above: Order Comment: Speci men Type: BLOOD SPECIMENOrdering Facility: [facility] Address: [address] [place] [address] Performed By: #### 2 4321-2 ####[facility]ORATORYCLIA [id number] [place] [address] [place] Chloride [Moles/Vol] 106 mmol/L Normal 98-107 [facility] Comment on above: Order Comment: Speci men Type: BLOOD SPECIMENOrdering Facility: [facility] Address: [address] [place] [address] Performed By: #### 2 4321-2 ####[facility]ORATORYCLIA [id number] [address] [place] CO2 [Moles/Vol] 25 mmol/L Normal 22-30 [facility] Comment on above: Order Comment: Speci men Type: BLOOD SPECIMENOrdering Facility: [facility] Address: [address] [place] [address] Performed By: #### 2 4321-2 ####[facility]ORATORYCLIA [id number] [place] [address] [place] Creatinine [Mass/Vol] 1.05 mg/dL Normal 0.73-1.22 [facility] Comment on above: Order Comment: Speci men Type: BLOOD SPECIMENOrdering Facility: [facility] Address: [address] [place] [address] Performed By: #### 2 4321-2 ####[facility] LABORATORYCLIA [id number] [address] Creatinine and Glomerular filtration rate.predicted panel (S/P/Bld) 83 mL/min/1.73m??? Normal >=60 [facility] Comment on above: Order Comment: Speci men Type: BLOOD SPECIMENOrdering Facility: [facility] Address: [address] [place] [address] Result Comment: Mariaa mated Glomerular Filtration Rate (eGFR) is calculated using the 2020 CKD-EPI creatinine equation. This equation utilizes serum creatinine, sex, and age as parameters. The creatinine assay has traceable calibration to isotope dilution-mass spectrometry. Refer to KDIGO guidelines for clinical interpretation. In patients with unstable renal function, e.g. those with acute kidney injury, the eGFR may not accurately reflect actual GFR. Performed By: #### 2 4321-2 ####[facility] LABORATORYCLIA [id number] [place] [address] [place] Glucose [Mass/Vol] 106 mg/dL High 74-99 [facility] Comment on above: Order Comment: Speci men Type: BLOOD SPECIMENOrdering Facility: [facility] Address: [address] [place] [address] Result Comment: The British Diabetes Association (ADA) provides guidance for cutoff values for fasting glucose and random glucose. The ADA defines fasting as no caloric intake for at least 8 hours. Fasting plasma glucose results between 100 to 125 mg/dL indicate increased risk for diabetes (prediabetes).Fasting plasma glucose results greater than or equal to 126 mg/dL meet the criteria for diagnosis of diabetes. In the absence of unequivocal hyperglycemia, results should be confirmed by repeat testing. In a patient with classic symptoms of hyperglycemia or hyperglycemic crisis, random plasma glucose results greater than or equal to 200 mg/dL meet the criteria for diagnosis of diabetes.Reference: Standards of Medical Care in Diabetes 2016, [employer] Diabetes Association. Diabetes Care. 2016.39(Suppl 1). Performed By: #### 2 4321-2 ####[facility] LABORATORYCLIA [id number] [place] [address] [place] Potassium [Moles/Vol] 3.7 mmol/L Normal 3.7-5.1 [facility] Comment on above: Order Comment: Kartik blood Type: BLOOD SPECIMENOrdering Facility: [facility] Address: [address] [place] [address] Performed By: #### 2 4321-2 ####[facility] LABORATORYCLIA [id number] [place] [id number] [place] Sodium [Moles/Vol] 141 mmol/L Normal 136-144 [facility] Comment on above: Order Comment: Luis Danieli men Type: BLOOD SPECIMENOrdering Facility: [facility] Address: [address] [place] [address] Performed By: #### 2 4321-2 ####[facility] LABORATORYCLIA [id number] [place] [address] [place] [facility] Urea nitrogen [Mass/Vol] 40 mg/dL High 03-23 [facility] Comment on above: Order Comment: Speci men Type: BLOOD SPECIMENOrdering Facility: [facility] Address: [address] [place] [address] Performed By: #### 2 4321-2 ####[facility] LABORATORYCLIA [id number] [place] [address] [place] CBC W/Diff, Automatedon 03-30 PATH REV Reviewed Normal [facility] Comment on above: Result Comment: Neut rophilic leukocytosis. Normocytic anemia. Clinical correlation necessary. Barry Luciano M.D. 04/12/24 AMENDED REPORT 04/12/24 1338 PATH REV previously reported as: October Performed By: #### M 100.2200 #### [facility] [address] [place], [place], [id number] CBC panel Auto (Bld)on 04-12 Erythrocyte distribution width (RBC) [Ratio] 19.0 % High 11.5-15.0 [facility] Comment on above: Order Comment: Speci men Type: BLOOD SPECIMENOrdering Facility: [facility] Address: [address] [place] [address] Performed By: #### 5 8410-2 ####[facility] LABORATORYCLIA [id number] [place] [id number] [place] [facility] Hematocrit (Bld) [Volume fraction] 22.1 % Low 39.0-51.0 [facility] Comment on above: Order Comment: Speci men Type: BLOOD SPECIMENOrdering Facility: [facility] Address: [address] [facility] [place] [address] Performed By: #### 5 8410-2 ####[facility] LABORATORYCLIA [id number] [address] Hemoglobin (Bld) [Mass/Vol] 7.3 g/dL Low 13.0-17.0 [facility] Comment on above: Order Comment: Speci men Type: BLOOD SPECIMENOrdering Facility: [facility] Address: [address] [place] [address] Performed By: #### 5 8410-2 ####[facility] LABORATORYCLIA [id number] [address] [place] [facility] MCH (RBC) [Entitic mass] 29.3 pg Normal 26.0-34.0 [facility] Comment on above: Order Comment: Speci men Type: BLOOD SPECIMENOrdering Facility: [facility] Address: [address] [place] [address] Performed By: #### 5 8410-2 ####[facility] LABORATORYCLIA [id number] [address] MCHC (RBC) [Mass/Vol] 33.0 g/dL Normal 30.5-36.0 [facility] Comment on above: Order Comment: Speci men Type: BLOOD SPECIMENOrdering Facility: [facility] Address: [address] [place] [address] Performed By: #### 5 8410-2 ####[facility] LABORATORYCLIA [id number] [address] MCV (RBC) [Entitic vol] 88.8 fL Normal 80.0-100.0 [facility] Comment on above: Order Comment: Speci men Type: BLOOD SPECIMENOrdering Facility: [facility] Address: [address] [place] [address] Performed By: #### 5 8410-2 ####[facility] LABORATORYCLIA [id number] [address] Nucleated RBC (Bld) [#/Vol] 1.97 10*3/uL High <0.01 [facility] Comment on above: Order Comment: Speci men Type: BLOOD SPECIMENOrdering Facility: [facility] Address: [address] [place] [address] Performed By: #### 5 8410-2 ####[facility] LABORATORYCLIA [id number] [address] [place] Platelet mean volume (Bld) [Entitic vol] 10.1 fL Normal 9.0-12.7 [facility] Comment on above: Order Comment: Speci men Type: BLOOD SPECIMENOrdering Facility: [facility] Address: [address] [place] [address] Performed By: #### 5 8410-2 ####[facility] LABORATORYCLIA [id number] [address] [place] Platelets (Bld) [#/Vol] 249 10*3/uL Normal 150-400 [facility] Comment on above: Order Comment: Speci men Type: BLOOD SPECIMENOrdering Facility: [facility] Address: [address] [place] [address] Performed By: #### 5 8410-2 ####[facility] LABORATORYCLIA [id number] [place] [address] [place] RBC (Bld) [#/Vol] 2.49 10*6/uL Low 4.20-6.00 [facility] Comment on above: Order Comment: Speci men Type: BLOOD SPECIMENOrdering Facility: [facility] Address: [address] [place] [address] Performed By: #### 5 8410-2 ####[facility] LABORATORYCLIA [id number] [place] [address] [place] WBC (Bld) [#/Vol] 20.28 10*3/uL High 3.70-11.00 [facility] Comment on above: Order Comment: Speci men Type: BLOOD SPECIMENOrdering Facility: [facility] Address: [address] [place] [address] Performed By: #### 5 8410-2 ####[facility] LABORATORYCLIA [id number] [address] [place] CONSULTon 04-12-2024 CONSULT Normal [facility] Fact IX Act/Nor PPPon 2023 Coagulation factor IX activity actual/normal Coag (PPP) [Relative time] 92 % Normal 77-173 [facility] Comment on above: Order Comment: Speci men Type: BLOOD SPECIMENOrdering Facility: [facility] Address: [address] [place] [address] Performed By: #### 3 187-2 ####[facility] LABCLIA [id number] [facility] [address] [address] [place] Hgb Bld-mCncon 04-12-2024 Hemoglobin (Bld) [Mass/Vol] 8.2 g/dL Low 13.0-17.0 [facility] Comment on above: Order Comment: Speci men Type: BLOOD SPECIMENOrdering Facility: [facility] Address: [address] [place] [address] Performed By: #### 7 18-7 ####[facility] LABORATORYCLIA [id number] [address] [place] Upper GI endoscopyon 024 Upper GI endoscopy Normal [facility] ALLIED HEALTHon 04-11-2024 ALLIED HEALTH Normal [facility] CASE MGT INIT ASSESon 2023 CASE MGT INIT ASSES Normal [facility] CBC W Auto Differential pane l (Bld)on 04-11-2024 Anisocytosis Ql (Bld) Present Normal [facility] Comment on above: Order Comment: Speci men Type: BLOOD SPECIMENOrdering Facility: [facility] Address: [address] [place] [address] Performed By: #### 5 8410-2, 33824-4 ####[facility] LABORATORYCLIA [id number] [address] STATES OF [facility] Basophils (Bld) [#/Vol] 0.00 10*3/uL Normal <0.11 [facility] Comment on above: Order Comment: Speci men Type: BLOOD SPECIMENOrdering Facility: [facility] Address: [address] [place] [address] Performed By: #### 5 8410-2, 88391-3 ####[facility]ORATORYCLIA [id number] [address] [place] Basophils/100 WBC (Bld) 0.0 % Normal [facility] Comment on above: Order Comment: Speci men Type: BLOOD SPECIMENOrdering Facility: [facility] Address: [address] [place] [address] Performed By: #### 5 8410-2, 61037-0 ####[facility]ORATORYCLIA [id number] [place] [address] [place] Differential cell count method Nom (Bld) Manual Normal [facility] Comment on above: Order Comment: Speci men Type: BLOOD SPECIMENOrdering Facility: [facility] Address: [address] [place] [address] Performed By: #### 5 8410-2, 25856-5 ####[facility]ATORYCLIA [id number] [place] [address] [place] Eosinophils (Bld) [#/Vol] 0.00 10*3/uL Normal <0.46 [facility] Comment on above: Order Comment: Speci men Type: BLOOD SPECIMENOrdering Facility: [facility] Address: [address] [place] [address] Performed By: #### 5 8410-2, 78397-8 ####[facility]ATORYCLIA [id number] [address] [place] Eosinophils/100 WBC (Bld) 0.0 % Normal [facility] Comment on above: Order Comment: Speci men Type: BLOOD SPECIMENOrdering Facility: [facility] Address: [address] [place] [address] Performed By: #### 5 8410-2, 21818-5 ####[facility]ORATORYCLIA [id number] [place] [address] [place] Wetzel-Risingsun bodies LM Ql (Bld) Occasional Normal [facility] Comment on above: Order Comment: Speci men Type: BLOOD SPECIMENOrdering Facility: [facility] Address: [address] [place] [address] Performed By: #### 5 8410-2, 97055-6 ####[facility]ATORYCLIA [id number] [place] [address] [place] Lymphocytes (Bld) [#/Vol] 2.45 10*3/uL Normal 1.00-4.00 [facility] Comment on above: Order Comment: Speci men Type: BLOOD SPECIMENOrdering Facility: [facility] Address: [address] [place] [address] Performed By: #### 5 8410-2, 78619-7 ####[facility]ORATORYCLIA [id number] [address] [place] Lymphocytes/100 WBC (Bld) 12.0 % Normal [facility] Comment on above: Order Comment: Speci men Type: BLOOD SPECIMENOrdering Facility: [facility] Address: [address] [place] [address] Performed By: #### 5 8410-2, 64727-9 ####[facility]ORATORYCLIA [id number] [place] [address] [place] Monocytes (Bld) [#/Vol] 2.65 10*3/uL High <0.87 [facility] Comment on above: Order Comment: Speci men Type: BLOOD SPECIMENOrdering Facility: [facility] Address: [address] [place] [address] Performed By: #### 5 8410-2, 98408-9 ####[facility]ORATORYCLIA [id number] [place] [address] [place] Monocytes/100 WBC (Bld) 13.0 % Normal [facility] Comment on above: Order Comment: Speci men Type: BLOOD SPECIMENOrdering Facility: [facility] Address: [address] [place] [address] Performed By: #### 5 8410-2, 69756-3 ####[facility]ORATORYCLIA [id number] [place] [address] [place] Neutrophils (Bld) [#/Vol] 15.31 10*3/uL High 1.45-7.50 [facility] Comment on above: Order Comment: Speci men Type: BLOOD SPECIMENOrdering Facility: [facility] Address: [address] [place] [address] Performed By: #### 5 8410-2, 79287-4 ####[facility]ORATORYCLIA [id number] [place] [address] [place] Neutrophils/100 WBC (Bld) 75.0 % Normal [facility] Comment on above: Order Comment: Speci men Type: BLOOD SPECIMENOrdering Facility: [facility] Address: [address] [place] [address] Performed By: #### 5 8410-2, 89161-8 ####[facility] LABORATORYCLIA [id number] [place] [address] [place] Nucleated RBC (Bld) [#/Vol] 10*3/uL Normal <0.01 [facility] Comment on above: Order Comment: Speci men Type: BLOOD SPECIMENOrdering Facility: [facility] Address: [address] [place] [address] Performed By: #### 5 8410-2, 33857-4 ####[facility] LABORATORYCLIA [id number] [place] [address] [place] Nucleated RBC/100 WBC (Bld) [Ratio] 0.0 /100 WBC Normal [facility] Comment on above: Order Comment: Speci men Type: BLOOD SPECIMENOrdering Facility: [facility] Address: [address] [place] [address] Performed By: #### 5 8410-2, 55637-3 ####[facility] LABORATORYCLIA [id number] [place] [address] [place] Platelets Estimate (Bld) [#/Vol] Adequate Normal [facility] Comment on above: Order Comment: Speci men Type: BLOOD SPECIMENOrdering Facility: [facility] Address: [address] [place] [address] Performed By: #### 5 8410-2, 75287-1 ####[facility]ATORYCLIA [id number] [address] [place] Polychromasia LM Ql (Bld) Slight Normal [facility] Comment on above: Order Comment: Speci men Type: BLOOD SPECIMENOrdering Facility: [facility] Address: [address] [place] [address] Performed By: #### 5 8410-2, 01379-0 ####[facility]ATORYCLIA [id number] [address] [place] RED CELL MORPH Reviewed: see result s of individual morphologies Normal [facility] Comment on above: Order Comment: Speci men Type: BLOOD SPECIMENOrdering Facility: [facility] Address: [address] [place] [address] Performed By: #### 5 8410-2, 75208-7 ####[facility]ATORYCLIA [id number] [address] [place] Target cells LM Ql (Bld) Few Normal [facility] Comment on above: Order Comment: Speci men Type: BLOOD SPECIMENOrdering Facility: [facility] Address: [address] [place] [address] Performed By: #### 5 8410-2, 77654-7 ####[facility]ATORYCLIA [id number] [address] Anisocytosis Ql (Bld) Present Normal [facility] Comment on above: Order Comment: Speci men Type: BLOOD SPECIMENOrdering Facility: [facility] Address: [address] [place] [address] Performed By: #### 5 7021-8 ####[facility]ORYCLIA [id number] [address] [place] Basophils (Bld) [#/Vol] 0.00 10*3/uL Normal <0.11 [facility] Comment on above: Order Comment: Speci men Type: BLOOD SPECIMENOrdering Facility: [facility] Address: [address] [place] [address] Performed By: #### 5 7021-8 ####[facility]ATORYCLIA [id number] [address] [place] Basophils/100 WBC (Bld) 0.0 % Normal [facility] Comment on above: Order Comment: Speci men Type: BLOOD SPECIMENOrdering Facility: [facility] Address: [address] [place] [address] Performed By: #### 5 7021-8 ####[facility]ORYCLIA [id number] [address] [place] Differential cell count method Nom (Bld) Manual Normal [facility] Comment on above: Order Comment: Speci men Type: BLOOD SPECIMENOrdering Facility: [facility] Address: [address] [place] [address] Performed By: #### 5 7021-8 ####[facility]ORYCLIA [id number] [address] [place] Eosinophils (Bld) [#/Vol] 0.00 10*3/uL Normal <0.46 [facility] Comment on above: Order Comment: Speci men Type: BLOOD SPECIMENOrdering Facility: [facility] Address: [address] [place] [address] Performed By: #### 5 7021-8 ####[facility]ATORYCLIA [id number] [address] Eosinophils/100 WBC (Bld) 0.0 % Normal [facility] Comment on above: Order Comment: Speci men Type: BLOOD SPECIMENOrdering Facility: [facility] Address: [address] [place] [address] Performed By: #### 5 7021-8 ####[facility]ORYCLIA [id number] [address] [place] Erythrocyte distribution width (RBC) [Ratio] 19.3 % High 11.5-15.0 [facility] Comment on above: Order Comment: Speci men Type: BLOOD SPECIMENOrdering Facility: [facility] Address: [address] [place] [address] Performed By: #### 5 7021-8 ####[facility]ATORYCLIA [id number] [address] [place] Hematocrit (Bld) [Volume fraction] 24.9 % Low 39.0-51.0 [facility] Comment on above: Order Comment: Speci men Type: BLOOD SPECIMENOrdering Facility: [facility] Address: [address] [place] [address] Performed By: #### 5 7021-8 ####[facility] LABORATORYCLIA [id number] [place] [address] [place] Hemoglobin (Bld) [Mass/Vol] 8.1 g/dL Low 13.0-17.0 [facility] Comment on above: Order Comment: Speci men Type: BLOOD SPECIMENOrdering Facility: [facility] Address: [address] [place] [address] Performed By: #### 5 7021-8 ####[facility] LABORATORYCLIA [id number] [place] [address] [place] Wetzel-Risingsun bodies LM Ql (Bld) Occasional Normal [facility] Comment on above: Order Comment: Speci men Type: BLOOD SPECIMENOrdering Facility: [facility] Address: [address] [place] [address] Performed By: #### 5 7021-8 ####[facility] LABORATORYCLIA [id number] [place] [address] [place] Lymphocytes (Bld) [#/Vol] 1.41 10*3/uL Normal 1.00-4.00 [facility] Comment on above: Order Comment: Speci men Type: BLOOD SPECIMENOrdering Facility: [facility] Address: [address] [place] [address] Performed By: #### 5 7021-8 ####[facility] LABORATORYCLIA [id number] [address] [place] Lymphocytes/100 WBC (Bld) 7.0 % Normal [facility] Comment on above: Order Comment: Speci men Type: BLOOD SPECIMENOrdering Facility: [facility] Address: [address] [place] [address] Performed By: #### 5 7021-8 ####[facility] LABORATORYCLIA [id number] [address] MCH (RBC) [Entitic mass] 29.6 pg Normal 26.0-34.0 [facility] Comment on above: Order Comment: Speci men Type: BLOOD SPECIMENOrdering Facility: [facility] Address: [address] [place] [address] Performed By: #### 5 7021-8 ####[facility]ORATORYCLIA [id number] [address] MCHC (RBC) [Mass/Vol] 32.5 g/dL Normal 30.5-36.0 [facility] Comment on above: Order Comment: Speci men Type: BLOOD SPECIMENOrdering Facility: [facility] Address: [address] [place] [address] Performed By: #### 5 7021-8 ####[facility]ORATORYCLIA [id number] [address] MCV (RBC) [Entitic vol] 90.9 fL Normal 80.0-100.0 [facility] Comment on above: Order Comment: Speci men Type: BLOOD SPECIMENOrdering Facility: [facility] Address: [address] [place] [address] Performed By: #### 5 7021-8 ####[facility]ORATORYCLIA [id number] [address] Monocytes (Bld) [#/Vol] 1.21 10*3/uL High <0.87 [facility] Comment on above: Order Comment: Speci men Type: BLOOD SPECIMENOrdering Facility: [facility] Address: [address] [place] [address] Performed By: #### 5 7021-8 ####[facility] LABORATORYCLIA [id number] [place] [address] [place] Monocytes/100 WBC (Bld) 6.0 % Normal [facility] Comment on above: Order Comment: Speci men Type: BLOOD SPECIMENOrdering Facility: [facility] Address: [address] [place] [address] Performed By: #### 5 7021-8 ####[facility]ORYCLIA [id number] [place] [address] [place] Neutrophils (Bld) [#/Vol] 17.57 10*3/uL High 1.45-7.50 [facility] Comment on above: Order Comment: Speci men Type: BLOOD SPECIMENOrdering Facility: [facility] Address: [address] [place] [address] Performed By: #### 5 7021-8 ####[facility]ORATORYCLIA [id number] [address] [place] Neutrophils/100 WBC (Bld) 87.0 % Normal [facility] Comment on above: Order Comment: Speci men Type: BLOOD SPECIMENOrdering Facility: [facility] Address: [address] [place] [address] Performed By: #### 5 7021-8 ####[facility]ORYCLIA [id number] [place] [address] [place] Nucleated RBC (Bld) [#/Vol] 0.81 10*3/uL High <0.01 [facility] Comment on above: Order Comment: Speci men Type: BLOOD SPECIMENOrdering Facility: [facility] Address: [address] [place] [address] Performed By: #### 5 7021-8 ####[facility]ATORYCLIA [id number] [place] [address] [place] Nucleated RBC/100 WBC (Bld) [Ratio] 4.0 /100 WBC Normal [facility] Comment on above: Order Comment: Speci men Type: BLOOD SPECIMENOrdering Facility: [facility] Address: [address] [place] [address] Performed By: #### 5 7021-8 ####[facility]ATORYCLIA [id number] [address] [place] Platelet mean volume (Bld) [Entitic vol] 10.6 fL Normal 9.0-12.7 [facility] Comment on above: Order Comment: Speci men Type: BLOOD SPECIMENOrdering Facility: [facility] Address: [address] [place] [address] Performed By: #### 5 7021-8 ####[facility]ORATORYCLIA [id number] [address] [place] Platelets (Bld) [#/Vol] 339 10*3/uL Normal 150-400 [facility] Comment on above: Order Comment: Speci men Type: BLOOD SPECIMENOrdering Facility: [facility] Address: [address] [place] [address] Performed By: #### 5 7021-8 ####[facility]ORATORYCLIA [id number] [address] [place] Platelets Estimate (Bld) [#/Vol] Adequate Normal [facility] Comment on above: Order Comment: Speci men Type: BLOOD SPECIMENOrdering Facility: [facility] Address: [address] [place] [address] Performed By: #### 5 7021-8 ####[facility]ORATORYCLIA [id number] [address] [place] Polychromasia LM Ql (Bld) Slight Normal [facility] Comment on above: Order Comment: Speci men Type: BLOOD SPECIMENOrdering Facility: [facility] Address: [address] [place] [address] Performed By: #### 5 7021-8 ####[facility]ORATORYCLIA [id number] [address] [place] RBC (Bld) [#/Vol] 2.74 10*6/uL Low 4.20-6.00 [facility] Comment on above: Order Comment: Speci men Type: BLOOD SPECIMENOrdering Facility: [facility] Address: [address] [place] [address] Performed By: #### 5 7021-8 ####[facility]ORATORYCLIA [id number] [address] RED CELL MORPH Reviewed: see result s of individual morphologies Normal [facility] Comment on above: Order Comment: Speci men Type: BLOOD SPECIMENOrdering Facility: [facility] Address: [address] [place] [address] Performed By: #### 5 7021-8 ####[facility]ORATORYCLIA [id number] [address] Target cells LM Ql (Bld) Few Normal [facility] Comment on above: Order Comment: Speci men Type: BLOOD SPECIMENOrdering Facility: [facility] Address: [address] [place] [address] Performed By: #### 5 7021-8 ####[facility]ORATORYCLIA [id number] [address] OF [facility] WBC (Bld) [#/Vol] 20.20 10*3/uL High 3.70-11.00 [facility] Comment on above: Order Comment: Speci men Type: BLOOD SPECIMENOrdering Facility: [facility] Address: [address] [place] [address] Performed By: #### 5 7021-8 ####[facility]ORATORYCLIA [id number] [address] CBC panel Auto (Bld)on 04-11 Erythrocyte distribution width (RBC) [Ratio] 18.3 % High 11.5-15.0 [facility] Comment on above: Order Comment: Speci men Type: BLOOD SPECIMENOrdering Facility: [facility] Address: [address] [place] [address] Performed By: #### 5 8410-2 ####[facility]ORATORYCLIA [id number] [address] Hematocrit (Bld) [Volume fraction] 27.9 % Low 39.0-51.0 [facility] Comment on above: Order Comment: Speci men Type: BLOOD SPECIMENOrdering Facility: [facility] Address: [address] [place] [address] Performed By: #### 5 8410-2 ####[facility]ORATORYCLIA [id number] [address] Hemoglobin (Bld) [Mass/Vol] 9.5 g/dL Low 13.0-17.0 [facility] Comment on above: Order Comment: Speci men Type: BLOOD SPECIMENOrdering Facility: [facility] Address: [address] [place] [address] Performed By: #### 5 8410-2 ####[facility]ORATORYCLIA [id number] [address] STATES [facility] MCH (RBC) [Entitic mass] 29.1 pg Normal 26.0-34.0 [facility] Comment on above: Order Comment: Speci men Type: BLOOD SPECIMENOrdering Facility: [facility] Address: [address] [place] [address] Performed By: #### 5 8410-2 ####[facility]ORATORYCLIA [id number] [address] STATES [facility] MCHC (RBC) [Mass/Vol] 34.1 g/dL Normal 30.5-36.0 [facility] Comment on above: Order Comment: Speci men Type: BLOOD SPECIMENOrdering Facility: [facility] Address: [address] [place] [address] Performed By: #### 5 8410-2 ####[facility]ORATORYCLIA [id number] [address] [place] MCV (RBC) [Entitic vol] 85.6 fL Normal 80.0-100.0 [facility] Comment on above: Order Comment: Speci men Type: BLOOD SPECIMENOrdering Facility: [facility] Address: [address] [place] [address] Performed By: #### 5 8410-2 ####[facility]ORATORYCLIA [id number] [place] [address] [place] Nucleated RBC (Bld) [#/Vol] 1.27 10*3/uL High <0.01 [facility] Comment on above: Order Comment: Speci men Type: BLOOD SPECIMENOrdering Facility: [facility] Address: [address] [place] [address] Performed By: #### 5 8410-2 ####[facility]ORATORYCLIA [id number] [place] [address] [place] Platelet mean volume (Bld) [Entitic vol] 11.5 fL Normal 9.0-12.7 [facility] Comment on above: Order Comment: Speci men Type: BLOOD SPECIMENOrdering Facility: [facility] Address: [address] [place] [address] Performed By: #### 5 8410-2 ####[facility]ORATORYCLIA [id number] [place] [address] [place] Platelets (Bld) [#/Vol] 117 10*3/uL Low 150-400 [facility] Comment on above: Order Comment: Speci men Type: BLOOD SPECIMENOrdering Facility: [facility] Address: [address] [place] [address] Result Comment: No c lot detected.Platelet count confirmed by manual review of peripheral blood smear. Performed By: #### 5 8410-2 ####[facility]ORATORYCLIA [id number] [place] [address] [place] RBC (Bld) [#/Vol] 3.26 10*6/uL Low 4.20-6.00 [facility] Comment on above: Order Comment: Speci men Type: BLOOD SPECIMENOrdering Facility: [facility] Address: [address] [place] [address] Performed By: #### 5 8410-2 ####[facility]ORATORYCLIA [id number] [place] [address] [place] WBC (Bld) [#/Vol] 24.26 10*3/uL High 3.70-11.00 [facility] Comment on above: Order Comment: Speci men Type: BLOOD SPECIMENOrdering Facility: [facility] Address: [address] [place] [address] Performed By: #### 5 8410-2 ####[facility]ORATORYCLIA [id number] [address] STATES [facility] Erythrocyte distribution width (RBC) [Ratio] 19.3 % High 11.5-15.0 [facility] Comment on above: Order Comment: Speci men Type: BLOOD SPECIMENOrdering Facility: [facility] Address: [address] [place] [address] Performed By: #### 5 8410-2, 96261-4 ####[facility]ORATORYCLIA [id number] [address] [place] Hematocrit (Bld) [Volume fraction] 22.9 % Low 39.0-51.0 [facility] Comment on above: Order Comment: Speci men Type: BLOOD SPECIMENOrdering Facility: [facility] Address: [address] [place] [address] Performed By: #### 5 8410-2, 00860-0 ####[facility]ORATORYCLIA [id number] [address] [place] Hemoglobin (Bld) [Mass/Vol] 7.2 g/dL Low 13.0-17.0 [facility] Comment on above: Order Comment: Speci men Type: BLOOD SPECIMENOrdering Facility: [facility] Address: [address] [place] [address] Performed By: #### 5 8410-2, 72146-7 ####[facility]ORATORYCLIA [id number] [address] [place] MCH (RBC) [Entitic mass] 28.9 pg Normal 26.0-34.0 [facility] Comment on above: Order Comment: Speci men Type: BLOOD SPECIMENOrdering Facility: [facility] Address: [address] [place] [address] Performed By: #### 5 8410-2, 67715-4 ####[facility]ORATORYCLIA [id number] [address] STATES OF [facility] MCHC (RBC) [Mass/Vol] 31.4 g/dL Normal 30.5-36.0 [facility] Comment on above: Order Comment: Speci men Type: BLOOD SPECIMENOrdering Facility: [facility] Address: [address] [place] [address] Performed By: #### 5 8410-2, 14245-0 ####[facility] LABORATORYCLIA [id number] [address] OF [facility] MCV (RBC) [Entitic vol] 92.0 fL Normal 80.0-100.0 [facility] Comment on above: Order Comment: Speci men Type: BLOOD SPECIMENOrdering Facility: [facility] Address: [address] [place] [address] Performed By: #### 5 8410-2, 00689-5 ####[facility] LABORATORYCLIA [id number] [address] STATES [facility] Platelet mean volume (Bld) [Entitic vol] 10.7 fL Normal 9.0-12.7 [facility] Comment on above: Order Comment: Speci men Type: BLOOD SPECIMENOrdering Facility: [facility] Address: [address] [place] [address] Performed By: #### 5 8410-2, 61774-8 ####[facility]ORATORYCLIA [id number] [address] [place] Platelets (Bld) [#/Vol] 295 10*3/uL Normal 150-400 [facility] Comment on above: Order Comment: Speci men Type: BLOOD SPECIMENOrdering Facility: [facility] Address: [address] [place] [address] Performed By: #### 5 8410-2, 93014-0 ####[facility] LABORATORYCLIA [id number] [address] [place] RBC (Bld) [#/Vol] 2.49 10*6/uL Low 4.20-6.00 [facility] Comment on above: Order Comment: Speci men Type: BLOOD SPECIMENOrdering Facility: [facility] Address: [address] [place] [address] Performed By: #### 5 8410-2, 20941-6 ####[facility] LABORATORYCLIA [id number] [place] [address] [place] WBC (Bld) [#/Vol] 20.41 10*3/uL High 3.70-11.00 [facility] Comment on above: Order Comment: Speci men Type: BLOOD SPECIMENOrdering Facility: [facility] Address: [address] [place] [address] Performed By: #### 5 8410-2, 07801-1 ####[facility] LABORATORYCLIA [id number] [address] [place] CONSULTon 04-11-2024 CONSULT Normal [facility] CONSULT Normal [facility] CONSULT Normal [facility] CTA ABD/PELV W IVCONon 04-11 CTA ABD/PELV W IVCON Normal [facility] Comprehensive metabolic 2000 panelon 04-11-2024 Albumin [Mass/Vol] 3.0 g/dL Low 3.9-4.9 [facility] Comment on above: Order Comment: Speci men Type: BLOOD SPECIMENOrdering Facility: [facility] Address: [address] [place] [address] Performed By: #### 2 4323-8 ####[facility] LABORATORYCLIA [id number] [place] [address] [place] ALP [Catalytic activity/Vol] 69 U/L Normal 38-113 [facility] Comment on above: Order Comment: Speci men Type: BLOOD SPECIMENOrdering Facility: [facility] Address: [address] [place] [address] Performed By: #### 2 4323-8 ####[facility] LABORATORYCLIA [id number] [place] [address] [place] ALT With P-5'-P [Catalytic activity/Vol] 27 U/L Normal 10-54 [facility] Comment on above: Order Comment: Speci men Type: BLOOD SPECIMENOrdering Facility: [facility] Address: [address] [place] [address] Performed By: #### 2 4323-8 ####[facility]ORATORYCLIA [id number] [place] [address] [place] Anion gap [Moles/Vol] 17 mmol/L High 8-15 [facility] Comment on above: Order Comment: Speci men Type: BLOOD SPECIMENOrdering Facility: [facility] Address: [address] [place] [address] Performed By: #### 2 4323-8 ####[facility] LABORATORYCLIA [id number] [address] [place] AST With P-5'-P [Catalytic activity/Vol] 40 U/L Normal 14-40 [facility] Comment on above: Order Comment: Speci men Type: BLOOD SPECIMENOrdering Facility: [facility] Address: [address] [place] [address] Performed By: #### 2 4323-8 ####[facility] LABORATORYCLIA [id number] [place] [address] [place] Bilirubin [Mass/Vol] 1.3 mg/dL Normal 0.2-1.3 [facility] Comment on above: Order Comment: Speci men Type: BLOOD SPECIMENOrdering Facility: [facility] Address: [address] [place] [address] Performed By: #### 2 4323-8 ####[facility]ORYCLIA [id number] [place] [address] [place] Calcium [Mass/Vol] 7.9 mg/dL Low 8.5-10.2 [facility] Comment on above: Order Comment: Speci men Type: BLOOD SPECIMENOrdering Facility: [facility] Address: [address] [place] [address] Performed By: #### 2 4323-8 ####[facility]ORYCLIA [id number] [place] [address] [place] Chloride [Moles/Vol] 100 mmol/L Normal 98-107 [facility] Comment on above: Order Comment: Speci men Type: BLOOD SPECIMENOrdering Facility: [facility] Address: [address] [place] [address] Performed By: #### 2 4323-8 ####[facility] LABORATORYCLIA [id number] [place] [id number] [place] CO2 [Moles/Vol] 19 mmol/L Low 22-30 [facility] Comment on above: Order Comment: Speci men Type: BLOOD SPECIMENOrdering Facility: [facility] Address: [address] [place] [address] Performed By: #### 2 4323-8 ####[facility] [id number] [address] Creatinine [Mass/Vol] 1.48 mg/dL High 0.73-1.22 [facility] Comment on above: Order Comment: Speci men Type: BLOOD SPECIMENOrdering Facility: [facility] Address: [address] [place] [address] Performed By: #### 2 4323-8 ####[facility] LABORATORYCLIA [id number] [address] Creatinine and Glomerular filtration rate.predicted panel (S/P/Bld) 55 mL/min/1.73m??? Low >=60 [facility] Comment on above: Order Comment: Speci men Type: BLOOD SPECIMENOrdering Facility: [facility] Address: [address] [place] [address] Result Comment: Mariaa mated Glomerular Filtration Rate (eGFR) is calculated using the 2020 CKD-EPI creatinine equation. This equation utilizes serum creatinine, sex, and age as parameters. The creatinine assay has traceable calibration to isotope dilution-mass spectrometry. Refer to KDIGO guidelines for clinical interpretation. In patients with unstable renal function, e.g. those with acute kidney injury, the eGFR may not accurately reflect actual GFR. Performed By: #### 2 4323-8 ####[facility] LABORATORYCLIA [id number] [place] [address] [place] Glucose [Mass/Vol] 206 mg/dL High 74-99 [facility] Comment on above: Order Comment: Speci men Type: BLOOD SPECIMENOrdering Facility: [facility] Address: [address] [place] [address] Result Comment: The [place] Diabetes Association (ADA) provides guidance for cutoff values for fasting glucose and random glucose. The ADA defines fasting as no caloric intake for at least 8 hours. Fasting plasma glucose results between 100 to 125 mg/dL indicate increased risk for diabetes (prediabetes).Fasting plasma glucose results greater than or equal to 126 mg/dL meet the criteria for diagnosis of diabetes. In the absence of unequivocal hyperglycemia, results should be confirmed by repeat testing. In a patient with classic symptoms of hyperglycemia or hyperglycemic crisis, random plasma glucose results greater than or equal to 200 mg/dL meet the criteria for diagnosis of diabetes.Reference: Standards of Medical Care in Diabetes 2016, British Diabetes Association. Diabetes Care. 2016.39(Suppl 1). Performed By: #### 2 4323-8 ####[facility] LABORATORYCLIA [id number] [place] [address] [place] Potassium [Moles/Vol] 4.7 mmol/L Normal 3.7-5.1 [facility] Comment on above: Order Comment: Kartik men Type: BLOOD SPECIMENOrdering Facility: [facility] Address: [address] [place] [address] Performed By: #### 2 4323-8 ####[facility] LABORATORYCLIA [id number] [place] [address] [place] Protein [Mass/Vol] 5.3 g/dL Low 6.3-8.0 [facility] Comment on above: Order Comment: Speci men Type: BLOOD SPECIMENOrdering Facility: [facility] Address: [address] [place] [address] Performed By: #### 2 4323-8 ####[facility] LABORATORYCLIA [id number] [place] [address] [place] Sodium [Moles/Vol] 136 mmol/L Normal 136-144 [facility] Comment on above: Order Comment: Speci men Type: BLOOD SPECIMENOrdering Facility: [facility] Address: [address] [place] [address] Performed By: #### 2 4323-8 ####[facility] LABORATORYCLIA [id number] [place] [id number] [facility] Urea nitrogen [Mass/Vol] 53 mg/dL High 9-24 [facility] Comment on above: Order Comment: Speci men Type: BLOOD SPECIMENOrdering Facility: [facility] Address: [address] [place] [address] Performed By: #### 2 4323-8 ####[facility] LABORATORYCLIA [id number] [place] [id number] [facility] ED NOTEon 04-11-2024 ED NOTE HNO ID: [id number] Author: NIDA MCDONNELL RN Service: Emergency Medicine Author Type: Registered Nurse Type: ED Notes Filed: 04/11/2024 18:05 Note Text: Waiting on factor IX to come from main pharmacy [facility] ED NOTE HNO ID: [id number] Author: NIDA MCDONNELL RN Service: Emergency Medicine Author Type: Registered Nurse Type: ED Notes Filed: 04/11/2024 12:49 Note Text: ICU team at bedside [facility] ED NOTE HNO ID: [id number] Author: DARYA FAIRBANKS RN Service: ? Author Type: Registered Nurse Type: ED Notes Filed: 04/11/2024 09:24 Note Text: Ct called [facility] ED NOTE HNO ID: [id number] Author: AMANDA RAMIREZ RN Service: ? Author Type: Registered Nurse Type: ED Notes Filed: 04/11/2024 07:01 Note Text: Report given to Evon PEREZ and Darya PEREZ [facility] ED NOTE HNO ID: [id number] Author: AMANDA RAMIREZ RN Service: ? Author Type: Registered Nurse Type: ED Notes Filed: 04/11/2024 06:14 Note Text: Resuming patient care at this time [facility] ED NOTE HNO ID: [id number] Author: ASHLEY, KONSTANCE, RN Service: ? Author Type: Registered Nurse Type: ED Notes Filed: 04/11/2024 04:08 Note Text: Called away from patient care d/t trauma activation Normal [facility] ED NOTE HNO ID: [id number] Author: AMOL BURCH RN Service: Emergency Medicine Author Type: Registered Nurse Type: ED Notes Filed: 04/11/2024 03:38 Note Text: CT called Normal [facility] ED NOTE HNO ID: [id number] Author: ANU STALEY, FRANKIE Service: Emergency Medicine Author Type: Registered Nurse Type: ED Notes Filed: 04/11/2024 02:53 Note Text: This Normal [facility] ED NOTE Normal [facility] ED NOTE Normal [facility] ED NOTE Normal [facility] ED PROV NOTEon 04-11-2024 ED PROV NOTE Normal [facility] Fact IX Act/Nor PPPon 2023 Coagulation factor IX activity actual/normal Coag (PPP) [Relative time] 58 % Low 77-173 [facility] Comment on above: Order Comment: Speci men Type: BLOOD SPECIMENOrdering Facility: [facility] Address: [address] [place] [address] Performed By: #### 3 187-2 ####[facility] LABCLIA [id number] [place] [address] [place] Hgb Bld-mCncon 04-11-2024 Hemoglobin (Bld) [Mass/Vol] 7.4 g/dL Low 13.0-17.0 [facility] Comment on above: Order Comment: Speci men Type: BLOOD SPECIMENOrdering Facility: [facility] Address: [address] [place] [address] Performed By: #### 7 18-7 ####[facility] LABORATORYCLIA [id number] [place] [address] [place] Hemoglobin (Bld) [Mass/Vol] 7.5 g/dL Low 13.0-17.0 [facility] Comment on above: Order Comment: Speci men Type: BLOOD SPECIMENOrdering Facility: [facility] Address: [address] [place] [address] Performed By: #### 7 18-7 ####[facility]ORYCLIA [id number] [address] [place] TOXICOLOGY SCREEN, ROUTINE U RINEon 04-11-2024 Amphetamines Confirm (U) [Mass/Vol] Negative Normal Negative [facility] Comment on above: Order Comment: Speci men Type: URINE SPECIMENOrdering Facility: [facility] Address: [address] [place] [address] Result Comment: Cuto ff threshold at 1000 ng/mL. Performed By: #### U TOX2 ####[facility]ATORYCLIA [id number] [address] [place] BARBITURATES, URINE Negative Normal Negative [facility] Comment on above: Order Comment: Speci men Type: URINE SPECIMENOrdering Facility: [facility] Address: [address] [place] [address] Result Comment: Cuto ff threshold at 200 ng/mL. Performed By: #### U TOX2 ####[facility]ORYCLIA [id number] [place] [address] [place] BENZODIAZEPINES, UR Positive Abnormal Negative [facility] Comment on above: Order Comment: Speci men Type: URINE SPECIMENOrdering Facility: [facility] Address: [address] [place] [address] Result Comment: Cuto ff threshold at 200 ng/mL. Performed By: #### U TOX2 ####[facility]ORYCLIA [id number] [place] [address] [place] Cannabinoids Screen Ql (U) Negative Normal Negative [facility] Comment on above: Order Comment: Speci men Type: URINE SPECIMENOrdering Facility: [facility] Address: [address] [place] [address] Result Comment: Cuto ff threshold at 50 ng/mL. Performed By: #### U TOX2 ####[facility]ATORYCLIA [id number] [place] [address] [place] Cocaine Ql (U) Negative Normal Negative [facility] Comment on above: Order Comment: Speci men Type: URINE SPECIMENOrdering Facility: [facility] Address: [address] [place] [address] Result Comment: Cuto ff threshold at 300 ng/mL. Performed By: #### U TOX2 ####[facility] [facility]ORYCLIA [id number] [address] [place] Ethanol (U) [Mass/Vol] <11 Normal <11 [facility] Comment on above: Order Comment: Speci men Type: URINE SPECIMENOrdering Facility: [facility] Address: [address] [place] [address] Performed By: #### U TOX2 ####[facility]ORYCLIA [id number] [address] [place] Opiates Screen Ql (U) Negative Normal Negative [facility] Comment on above: Order Comment: Speci men Type: URINE SPECIMENOrdering Facility: [facility] Address: [address] [place] [address] Result Comment: Cuto ff threshold at 300 ng/mL. Performed By: #### U TOX2 ####[facility] LABORATORYCLIA [id number] [address] [place] oxyCODONE cutoff Screen (U) [Mass/Vol] Negative Normal Negative [facility] Comment on above: Order Comment: Speci men Type: URINE SPECIMENOrdering Facility: [facility] Address: [address] [place] [address] Result Comment: Cuto ff threshold at 100 ng/mL. Performed By: #### U TOX2 ####[facility] [facility]ATORYCLIA [id number] [address] [place] Phencyclidine Ql (U) Negative Normal Negative [facility] Comment on above: Order Comment: Speci men Type: URINE SPECIMENOrdering Facility: [facility] Address: [address] [place] [address] Result Comment: Cuto ff threshold at 25 ng/mL. Performed By: #### U TOX2 ####[facility] [facility]ATORYCLIA [id number] [address] [place] TYPE + SCREENon 04-11-2024 ABO A Normal [facility] Comment on above: Order Comment: Speci men Type: BLOOD SPECIMENOrdering Facility: [facility] Address: [address] [place] [address] Performed By: #### T SCR ####[facility] BLOOD BANKCLIA [id number] [place] [address] [facility] Rh Nom (Bld) Positive Normal [facility] Comment on above: Order Comment: Speci men Type: BLOOD SPECIMENOrdering Facility: [facility] Address: [address] [place] [address] Performed By: #### T SCR ####[facility] BLOOD BANKCLIA [id number] [place] [id number] [facility] TYPE AND SCREEN EXPIRATION 04/14/2024 23:59 Normal [facility] Comment on above: Order Comment: Speci men Type: BLOOD SPECIMENOrdering Facility: [facility] Address: [address] [place] [address] Performed By: #### T SCR ####[facility] BLOOD BANKCLIA [id number] [place] [id number] [facility] Urine Cultureon 04-11-2024 URC Culture exhibits no growth. Normal [facility] Comment on above: Performed By: #### M 100.2200 #### [facility] [address] [facility] [address] Basic Metabolic Profile (BMP )on 04-10-2024 BUN/CRE 31.8 RATIO High 10- [facility] Comment on above: Performed By: #### M 100.2200 #### [facility] [address] [facility] [facility] [address] [place],Total 8.5 mg/dL Normal 8.5-10.1 [facility] Comment on above: Performed By: #### M 100.2200 #### [facility] [address] [place], [address] Chloride [Moles/Vol] 104 mmol/L Normal 98-107 [facility] Comment on above: Performed By: #### M 100.2200 #### [facility] [address] [place], [address] CO2 [Moles/Vol] 24.0 mmol/L Normal 21.0-32.0 [facility] Comment on above: Performed By: #### M 100.2200 #### [facility] [address] [place], [address] Creatinine [Mass/Vol] 1.29 mg/dL Normal 0.70-1.30 [facility] Comment on above: Result Comment: The validity of the calculated GFR GFRAA in patients over 70 years has not been determined. Clinical correlation is essential. Performed By: #### M 100.2200 #### [facility] [address] [place], [address] ECRCL 76.93 ml/min Normal [facility] Comment on above: Performed By: #### M 100.2200 #### [facility] [address] [place], [address] EST GFR - AA 74 mL/min Normal >60 [facility] Comment on above: Result Comment: Afri can British GFR Calc Performed By: #### M 100.2200 #### [facility] [address] [place], [address] GAP 8 Normal 5-15 [facility] Comment on above: Performed By: #### M 100.2200 #### [facility] [address] [place], [address] GFR/1.73 sq M.predicted among non-blacks MDRD (S/P/Bld) [Vol rate/Area] 61 mL/min/{1.73_m2} Normal >60 [facility] Comment on above: Result Comment: Non- GFR Calc Performed By: #### M 100.2200 #### [facility] [address] [place], [address] Glucose [Mass/Vol] 190 mg/dL High 74-106 [facility] Comment on above: Result Comment: Fast ing Glucose result greater than or equal to 126 mg/dL suggests DIABETES MELLITUS per A.D.A. criteria. Performed By: #### M 100.2200 #### [facility] [address] [place], [address] Potassium [Moles/Vol] 4.0 mmol/L Normal 3.5-5.1 [facility] Comment on above: Performed By: #### M 100.2200 #### [facility] [address] [place], [address] Sodium [Moles/Vol] 136 mmol/L Normal 136-145 [facility] Comment on above: Performed By: #### M 100.2200 #### [facility] [address] [place], [address] Urea nitrogen [Mass/Vol] 41 mg/dL High 7-18 [facility] Comment on above: Performed By: #### M 100.2200 #### [facility] [address] [place], [address] Brain/Head without Contrasto n 04-10-2024 Brain/Head without Contrast [facility] Imaging Services [address] [place] [address] Brain/Head without Contrast MR#: [id number] Acct: [id number] Name: SARAHISIDRO ALPESH Rep #: [id number] : 1965 M 58 From: [place] Roland MD PCP: Care Physician,No Primary Status: REG ER Study: Brain/Head without Contrast Date of Exam: 03/30 08/23 Exam# [id number] Ordering Dr: Clement Meeks DO -[id number] STUDY: CT BRAIN WITHOUT CONTRAST REASON FOR EXAM: Male, 58 years old. injury RADIATION DOSAGE (If Supplied By Facility): CTDIvol = ( 44.99 ) mGy, DLP = ( 796.11 ) mGycm TECHNIQUE: Transaxial CT imaging of the brain was performed without administration of intravenous contrast material. Individualized dose optimization techniques were used for this CT. COMPARISON: No relevant priors. FINDINGS: Normal soft tissue structures. Normal calvarium. Normal size ventricles and extra-axial spaces for the patient''s age. Normal white matter tracts of the cerebral hemispheres. Normal basal ganglia and thalami. Normal brainstem. Normal cerebellum. There is no intracranial hemorrhage. There are no findings of an acute ischemic infarction. Normal visualized paranasal sinuses. CT/Brain/Head without Contrast IMPRESSION: Normal unenhanced CT scan of the brain. Electronically Signed: [place] Roland MD at 18:19 EDT , CC: Dr. Clement Meeks DO; No Primary Care Physician Formal Service Waiter: Signed Normal [facility] CONSULTon 04-10-2024 CONSULT Normal [facility] CT Chest, Abd, Pelvis WO Con ton 04-10-2024 CT Chest, Abd, Pelvis WO Cont [facility] Imaging Services [address] [place], [place] [id number] CT Chest, Abd, Pelvis WO Cont MR#: [id number] Acct: [id number] Name: ISIDRO SMITH Rep #: [id number] : 1965 M 58 From: [place] Rloand MD PCP: Care Physician,No Primary Status: REG ER Study: CT Chest, Abd, Pelvis WO Cont Date of Exam: Exam# [id number] Ordering Dr: Clement Meeks DO -[id number] STUDY: CT CHEST, ABDOMEN T PELVIS WITHOUT CONTRAST REASON FOR EXAM: Male, 58 years old. injury RADIATION DOSAGE (If Supplied By Facility): CTDIvol = ( 37.05 ) mGy, DLP = ( 3399.71 ) mGycm TECHNIQUE: Transaxial imaging was performed without the administration of intravenous contrast material. Individualized dose optimization techniques were used for this CT. COMPARISON: No relevant priors. FINDINGS: CHEST The lungs are normal. There is no demonstrated pleural abnormality. Normal heart and pericardium. There are no calcifications of the coronary arteries. Normal mediastinum. Normal hilar regions. Normal unenhanced pulmonary arteries. Normal aorta arch and descending thoracic aorta. Multiple healed rib fractures bilaterally. Enlargement indenting ill-defined increased attenuation of the right subscapularis muscle suggestive of an intramuscular hematoma. Stranding of the fat within the right axilla and right chest wall. There is no demonstrated abnormality of the visualized upper abdomen. ABDOMEN The visualized lung bases are unremarkable. The visualized portions of the heart are within normal limits. Normal liver. Normal gallbladder and extrahepatic biliary system. No spleen visualized consistent with asplenia or plantar splenectomy. Normal pancreas. Normal bilateral adrenal glands. Normal right kidney. Normal left kidney. Normal visualized stomach. Normal small intestine. There are multiple colonic diverticula consistent with diverticulosis. Status post right hemicolectomy. Normal abdominal aorta. Normal inferior vena cava. Normal retroperitoneum. Normal abdominal wall. Normal osseous structures. PELVIS Normal urinary bladder. Normal visualized small intestine. Normal visualized colon. There is no pelvic fluid. There is no pelvic lymphadenopathy or mass lesion. Normal visualized pelvic arteries. Normal abdominal wall. Normal osseous structures. CT/CT Chest, Abd, Pelvis WO Cont IMPRESSION: Suspect hematoma the right subscapularis muscle but no pneumothorax or hemothorax. No acute solid organ or bowel injury. Electronically Signed: [place] Roland MD at 18:47 EDT , CC: Dr. Clement Meeks DO; No Primary Care Physician Formal Service Waiter: Signed Normal [facility] ED NOTEon 04-10-2024 ED NOTE Normal [facility] ED NOTE Normal [facility] ED PROV NOTEon 04-10-2024 ED PROV NOTE Normal [facility] Emergency Department Summary on 04-10-2024 Emergency Department Summary [facility] Medical Records Department [address] [place] [address] Emergency Department Summary 04/10/24 MR#: [id number] Acct: [id number] Name: ISIDRO SMITH Rep #: [id number] : 1965 58 From: Clement Thompson PCP: Care Physician,No Primary Status:DEP ER Location: ED HPI History of Present Illness Chief Complaint: Weakness Informant: patient and spouse/S.O. Narrative Narrative: Presents by private vehicle with significant other due to worsening weakness. 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 He had weakness fall 2 days ago right shoulder injury. Seen in the ED x-ray CT imaging negative. The evening increasing bruising and pain. He has not been able to get out of bed for the last 2 days. Per significant other legs are Jell-O. He is reported later evening increasing neck pain and back pain. There has been increasing confusion per significant other. He does not take any blood thinners. Reported injury left forearm this past May went to [facility] Admitted treated for compartment syndrome of his left forearm. Denies any paresthesias to the right upper extremity. However discussed pain worse with movement. There is been no new injuries. Prior similar symptoms: Yes PFSH PFSH Medical History Hx of fracture of wrist Factor IX (functional) deficiency Home Medications ???Medication ???Instructions ???Recorded ???Last Taken ???Type NK 04/10/24 Unknown History Allergy/AdvReac Type Severity Reaction Status Date / Time ciprofloxacin (From Cipro) Allergy Shortness Verified 04/08/24 11:27 of breath codeine Allergy Shortness Verified 04/08/24 11:27 of breath Surgical History History of partial surgical removal of colon History of colon surgery Hx of splenectomy Social History Smoking Status: Current every day smoker tobacco type: cigarettes ROS ROS ED Constitutional Constitutional ED: Denies chills, fever(s) or sweats Eyes Eyes: Denies change in vision ENT ENT ED: Denies dysphagia or sore throat Cardiovascular Cardiovascular: Denies chest pain, leg edema, palpitations or racing heartbeat Respiratory/Chest Respiratory/Chest: Denies cough, dyspnea or dyspnea on exertion Gastrointestinal Gastrointestinal: Denies abdominal pain, diarrhea, nausea or vomiting Genitourinary Genitourinary ED: Denies dysuria, hematuria or urinary frequency Musculoskeletal Musculoskeletal: Reports back pain and neck pain; Denies extremity pain Integumentary Denies rash or wounds Neurologic Neurologic: Reports headache(s) and weakness; Denies paresthesias Hematologic/Lymphatic Hematologic/Lymphatic: Reports easy bruising EXAM Physical Exam Const Vital Signs: 04/10/24 15:47 04/10/24 15:51 04/10/24 16:10 Temperature 97.9 F Temperature Source Oral Pulse Rate 121 H 123 H Respiratory Rate 12 18 Respiratory Pattern Tachypnea Blood Pressure 132/107 H 171/133 H Blood Pressure Mean 115 145 Pulse Ox 99 94 Oxygen Delivery Method Room Air Room Air 04/10/24 16:12 04/10/24 16:31 04/10/24 16:45 Temperature Temperature Source Pulse Rate 120 H 118 H Respiratory Rate 24 H 25 H Respiratory Pattern Tachypnea Blood Pressure Blood Pressure Mean Pulse Ox Oxygen Delivery Method 04/10/24 16:51 04/10/24 17:00 04/10/24 17:25 Temperature Temperature Source Pulse Rate 110 H 118 H Respiratory Rate 26 H 25 H Respiratory Pattern Blood Pressure 165/110 H 156/75 H 157/118 H Blood Pressure Mean 128 102 125 Pulse Ox 95 94 Oxygen Delivery Method Room Air Room Air 04/10/24 17:30 04/10/24 17:42 04/10/24 17:44 Temperature 98.4 F Temperature Source Oral Pulse Rate 116 H 118 H Respiratory Rate 35 H 23 H Respiratory Pattern Blood Pressure 165/121 H 165/121 H Blood Pressure Mean 133 135 Pulse Ox 92 Oxygen Delivery Method Room Air 04/10/24 17:45 04/10/24 18:00 04/10/24 19:25 Temperature Temperature Source Pulse Rate 115 H 112 H 117 H Respiratory Rate 25 H 23 H 23 H Respiratory Pattern Blood Pressure 149/85 H 196/116 H Blood Pressure Mean 103 142 Pulse Ox 94 95 Oxygen Delivery Method Room Air Room Air 04/10/24 20:00 04/10/24 20:48 Temperature 98.6 F Temperature Source Pulse Rate 112 H 117 H Respiratory Rate 21 H 27 H Respiratory Pattern Blood Pressure 155/121 H 192/129 H Blood Pressure Mean 132 150 Pulse Ox 95 95 Oxygen Delivery Method Room Air Positive well nourished and well developed Constitutional Narrative: GCS 15, uncomfortable, nontoxic Gener (more content not included)... Normal [facility] Lactic Acidon 04-10-2024 Lactate [Moles/Vol] 2.1 mmol/L Invalid Interpretation Code 0.4-1.9 [facility] Comment on above: Order Comment: Y Result Comment: Crit ical Result(s) Called at: 19:22:19 04/10/2024 by: EVON GOVEA. Results read back by NOAH Performed By: #### L 503.6005, M200.1000 #### [facility] [address] [place], [address] Partial Thromboplast Timeon 04-10-2024 aPTT Coag (Bld) [Time] 40.1 s High 24.1-36.2 [facility] Comment on above: Performed By: #### M 100.2200 #### [facility] [address] [place], [address] Prothrombin Time w/INRon INR Coag (PPP) [Relative time] 0.9 {INR} Normal [facility] Comment on above: Performed By: #### M 100.2200 #### [facility] [address] [place], [address] PT Coag (PPP) [Time] 12.5 s Normal 11.7-14.9 [facility] Comment on above: Performed By: #### M 100.2231 #### [facility] [address] [place], [place], [address] Spine Cervical without Contr ason 04-10-2024 Spine Cervical without Contras [facility] Imaging Services [address] [place] [address] Spine Cervical without Contras MR#: [id number] Acct: [id number] Name: ISIDRO SMITH Rep #: [id number] : 1965 M 58 From: [place] Roland MD PCP: Care Physician,No Primary Status: REG ER Study: Spine Cervical without Contras Date of Exam: Exam# [id number] Ordering Dr: Clement Meeks DO -[id number] STUDY: CT CERVICAL SPINE WITHOUT CONTRAST REASON FOR EXAM: Male, 58 years old. injury RADIATION DOSAGE (If Supplied By Facility): CTDIvol = ( 29.55 ) mGy, DLP = ( 625.46 ) mGycm TECHNIQUE: High resolution transaxial imaging was performed without contrast material. Sagittal and coronal images were reconstructed. Individualized dose optimization techniques were used for this CT. COMPARISON: None FINDINGS: Normal craniovertebral junction. There are degenerative changes of the anterior atlantoaxial articulation. Normal odontoid process. There is straightening of the normal cervical lordosis. Normal vertebral bodies and posterior osseous elements. C2-3: Mild left facet hypertrophy produces mild left neural foraminal stenosis. No central spinal stenosis. C3-4: Mild left facet hypertrophy produces mild left neural foraminal stenosis. No central spinal stenosis. C4-5: Normal endplates. Normal disc height and morphology. Normal central canal and intervertebral neuroforamina. C5-6: Normal endplates. Normal disc height and morphology. Normal central canal and intervertebral neuroforamina. C6-7: Normal endplates. Normal disc height and morphology. Normal central canal and intervertebral neuroforamina. C7-T1: Normal endplates. Normal disc height and morphology. Normal central canal and intervertebral neuroforamina. Normal visualized soft tissue structures. CT/Spine Cervical without Contras IMPRESSION: No acute fracture or subluxation. Electronically Signed: Chico Roland MD at 19:17 EDT , CC: Dr. Clement Meeks, DO; No Primary Care Physician Formal Service Waiter: Signed Normal [facility] Urinalysis, Completeon 04-10 BACTERIA 1+ /hpf Normal None Seen [facility] Comment on above: Order Comment: COLOR OF URINE MAY AFFECT DIPSTICK RESULTS. LICENSED CLINICIAN TO SPECIFY Performed By: #### L 400.0001 #### [facility] [address] [place], [address] WBC 0-5 SEEN Normal 0-5 [facility] Comment on above: Order Comment: COLOR OF URINE MAY AFFECT DIPSTICK RESULTS. LICENSED CLINICIAN TO SPECIFY Performed By: #### L 400.0001 #### [facility] [address] [place], [address] EPI,SQUAMOUS 0 SEEN Normal 0-5 [facility] Comment on above: Order Comment: COLOR OF URINE MAY AFFECT DIPSTICK RESULTS. LICENSED CLINICIAN TO SPECIFY Performed By: #### L 400.0001 #### [facility] [address] [place], [address] Mucus Ql (Urine sed) 0 SEEN Normal [facility] Comment on above: Order Comment: COLOR OF URINE MAY AFFECT DIPSTICK RESULTS. LICENSED CLINICIAN TO SPECIFY Performed By: #### L 400.0001 #### [facility] [address] [place], [address] RBC 0 SEEN Normal 0-5 [facility] Comment on above: Order Comment: COLOR OF URINE MAY AFFECT DIPSTICK RESULTS. LICENSED CLINICIAN TO SPECIFY Performed By: #### L 400.0001 #### [facility] [address] [place], [address] Emergency Department Summary on 04-08-2024 Emergency Department Summary [facility] Medical Records Department [address] [place] [address] Emergency Department Summary 04/08/24 MR#: [id number] Acct: [id number] Name: ISIDRO SMITH Rep #: [id number] : 1965 58 From: Kenton Walker MD PCP: Care Physician,No Primary Status:REG ER Location: ED HPI HPI - Fall History of Present Illness Chief Complaint: Fall Detail of Chief Complaint: Tripped and fell yesterday. Complaining of right shoulder pain. Informant: patient and spouse/S.O. Occured/Mechanism Occurred: Yesterday Mechanism/Context: Yes same level fall and Yes trip Usually ambulates: Without assistance Pain/Injury Pain Location: head and upper extremity Quality of Pain: Sharp Current Severity: Severe Maximum Severity: Severe Associated Symptoms Associated Symptoms: Negative for Parasthesias, Weakness, Inability to ambulate, Loss of consciousness or Amnesia Narrative Narrative: 58-year-old male history of factor IX deficiency. He has decreased blood clotting. He had a prior hernia repair and splenectomy. He denies any prior right shoulder injury or surgery. Yesterday he was walking tripped fell on the floor injuring his right shoulder and upper arm. Denies hitting his head. No LOC. No headache. No neck pain. Increased pain today. Patient is right-hand dominant. Prior similar symptoms: No Recent Illness/Hospitalization: No PFSH PFSH Medical History Hx of fracture of wrist Factor IX (functional) deficiency Home Medications ???Medication ???Instructions ???Recorded ???Last Taken ???Type oxycodone-acetaminophen 5 mg-325 1 tab PO Q6H PRN PRN Pain 3 days 12/08/23 Unknown Rx mg tablet #12 TABLETS Allergy/AdvReac Type Severity Reaction Status Date / Time ciprofloxacin (From Cipro) Allergy Shortness Verified 04/08/24 11:27 of breath codeine Allergy Shortness Verified 04/08/24 11:27 of breath Surgical History History of partial surgical removal of colon History of colon surgery Hx of splenectomy Social History Smoking Status: Current every day smoker tobacco type: cigarettes ROS ROS ED ROS Narrative Denies recent illness. Constitutional Constitutional ED: Denies chills Eyes Eyes: Denies blurry vision ENT ENT ED: Denies ear pain Cardiovascular Cardiovascular: Denies chest pain Respiratory/Chest Respiratory/Chest: Denies cough Gastrointestinal Gastrointestinal: Denies abdominal pain Genitourinary Genitourinary ED: Denies dysuria Musculoskeletal Musculoskeletal: Denies arthralgias Integumentary Denies abscess Neurologic Neurologic: Denies headache(s) Psychiatric Psychiatric: Denies anxiety Endocrine Endocrinology: Denies polydipsia Hematologic/Lymphatic Hematologic/Lymphatic: Reports easy bleeding and other Details: Factor IX deficiency. ; Denies lymphadenopathy Allergic/Immunologic Allergic/Immunologic ED: Denies mouth swelling, tongue swelling or urticaria EXAM Physical Exam Narrative Exam Narrative: 58-year-old male complaining of pain vital signs stable afebrile. H EENT exam pupils round react light. No signs of trauma to his face or head nontender no bruising. C-spine and neck nontender. Trachea midline. Back and spine nontender. Lungs clear equal symmetrical. Heart tachycardic 110 no murmur. Chest wall and ribs nontender. Abdomen is soft and nontender. Well-healed prior epigastric midline incision. No bruising. No peritoneal signs. Pelvic girdle intact. Both lower extremities are nontender normal range of motion. No deformity. Left upper extremity unremarkable normal range of motion and physical therapy aid strength. Right elbow, forearm, wrist and hand are nontender with no deformity. Normal physical therapy aid strength. Normal radial pulse. Normal sensation. He has tenderness along his right shoulder and proximal humerus. He has limited range of motion due to pain. There is no gross bony deformity. Currently there is no bruising. Neurologically is awake and alert with no focal motor deficits. Const Vital Signs: 04/08/24 11:25 04/08/24 11:32 04/08/24 11:35 Temperature 96.7 F L Temperature Source Temporal Pulse Rate 110 H 109 H Respiratory Rate 20 H 22 H Respiratory Effort Normal Blood Pressure 161/117 H 154/120 H Blood Pressure Mean 131 131 Pulse Ox 100 95 95 Oxygen Delivery Method Room Air Room Air Room Air 04/08/24 15:00 Temperature Temperature Source Pulse Rate 105 H Respiratory Rate 16 Respiratory Effort Blood Pressure 150/99 H Blood Pressure Mean 116 Pulse Ox 98 Oxygen Delivery Method Room Air Positive well nourished and well developed; Negative for cachectic, contractures or un (more content not included)... Normal [facility] Extremity Upper without Cont raon 04-08-2024 Extremity Upper without Contra [facility] Imaging Services [address] [place] [address] Extremity Upper without Contra MR#: [id number] Acct: [id number] Name: ISIDRO SMITH Rep #: [id number] : 1965 M 58 From: Arnie garcia MD PCP: Care Physician,No Primary Status: REG ER Study: Extremity Upper without Contra Date of Exam: Exam# [id number] Ordering Dr: Kenton Walker MD -[id number] STUDY: CT RIGHT SHOULDER REASON FOR EXAM: Male, 58 years old. Fall possible fracture RADIATION DOSAGE (If Supplied By Facility): CTDIvol = ( 45.25 ) mGy, DLP = ( 1111.08 ) mGycm TECHNIQUE: The patient was scanned in a multi detector CT scanner. High resolution transaxial imaging was performed without the administration of intravenous contrast material. Sagittal and coronal images were reconstructed. Individualized dose optimization techniques were used for this CT. COMPARISON: Comparison is made with prior radiograph done earlier today. FINDINGS: Normal glenohumeral articulation. Normal glenoid rim, neck and visualized scapula. Normal humeral head, neck and tuberosities. Normal coracoid process. Normal visualized lateral clavicle. Findings suggestive of possible resection of the distal lateral portion of the right clavicle. There is a Type II morphology (curved), with a neutral orientation. Normal visualized muscles and soft tissue structures. CT/Extremity Upper without Contra IMPRESSION: No acute fracture or dislocation is seen. Electronically Signed: Arnie Pacheco MD at 13:59 EDT , CC: Dr. Kenton Walker MD; No Primary Care Physician Formal Service Waiter: Signed Normal [facility] Humerus min 2 Viewson 2023 Humerus min 2 Views [facility] Imaging Services [address] [place], [place] [id number] Humerus min 2 Views MR#: [id number] Acct: [id number] Name: ISIDRO SMITH Rep #: [id number] : 1965 M 58 From: Arnie garcia MD PCP: Care Physician,No Primary Status: PRE ER Study: Humerus min 2 Views Date of Exam: 04/08/24 Exam# [id number] Ordering Dr: Kenton Walker MD -[id number] STUDY: X-RAY - RIGHT HUMERUS REASON FOR EXAM: Male, 58 years old. Pain following a fall. TECHNIQUE: 2 view(s) of the humerus. COMPARISON: None. FINDINGS: Normal visualized humerus. There is no demonstrated fracture or osseous destructive process. There is no demonstrated soft tissue abnormality. RAD/Humerus min 2 Views IMPRESSION: Normal x-ray examination of the humerus. Electronically Signed: Arnie Pacheco MD at 12:47 EDT , CC: Dr. Kenton Walker MD; No Primary Care Physician Formal Service Waiter: Signed Normal [facility] Shoulder min 2 Viewson 04-08 Shoulder min 2 Views [facility] Imaging Services [address] [place], [place] [address] Shoulder min 2 Views MR#: [id number] Acct: [id number] Name: ISIDRO SMITH Rep #: [id number] : 1965 M 58 From: Arnie garcia MD PCP: Care Physician,No Primary Status: PRE ER Study: Shoulder min 2 Views Date of Exam: 04/08/24 Exam# [id number] Ordering Dr: Kenton Walker MD -[id number] STUDY: X-RAY - RIGHT SHOULDER REASON FOR EXAM: Male, 58 years old. Fall and pain TECHNIQUE: 2 view(s) of the shoulder. COMPARISON: None. FINDINGS: Normal glenohumeral articulation. Findings suggestive of prior resection of the distal right clavicle. Normal acromion. Normal humeral head and visualized proximal humerus. Soft tissue swelling. Normal visualized pulmonary apex. RAD/Shoulder min 2 Views IMPRESSION: Findings suggestive of resection of the distal portion of the right clavicle. Soft tissue swelling. Electronically Signed: Arnie Pacheco MD at 12:48 EDT , CC: Dr. Kenton Walker MD; No Primary Care Physician Formal Service Waiter: Signed Normal [facility] Urine Cultureon 12-09-2023 URC Culture exhibits no growth. Normal [facility] Comment on above: Performed By: #### M 100.2200 #### [facility] [address] [place], [address] Abdomen/Pelvis without Conto n 12-08-2023 Abdomen/Pelvis without Cont [facility] Imaging Services [address] [place] [address] Abdomen/Pelvis without Cont MR#: [id number] Acct: [id number] Name: ISIDRO SMITH Rep #: [id number] : 1965 M [place] From: Tristen Foster PCP: Care Physician,No Primary Status: REG ER Study: Abdomen/Pelvis without Cont Date of Exam: 11/28 Exam# [id number] Ordering Dr: Trent Menjivar DO -[id number] STUDY: CT ABDOMEN AND PELVIS WITHOUT CONTRAST REASON FOR EXAM: Male, 58 years old. Flank pain RADIATION DOSAGE (If Supplied By Facility): CTDIvol = ( 18.06 ) mGy, DLP = ( 885.41 ) mGycm TECHNIQUE: Transaxial images were obtained from the dome of the diaphragm to the symphysis pubis without oral contrast, and without intravenous contrast. Sagittal and coronal images were reconstructed. Individualized dose optimization techniques were used for this CT. The protocol utilizes one or more of the following dose reduction techniques: automated exposure control, adjustment of mA and/or kV according to patient size,and/or use of iterative reconstruction technique. COMPARISON: None. FINDINGS: The visualized lung bases are unremarkable. The visualized portions of the heart are within normal limits. 2.7 cm hypodense lesion left lobe of the liver. Normal gallbladder and extrahepatic biliary system. Normal spleen. Normal pancreas. Normal bilateral adrenal glands. Normal right kidney. Normal left kidney. Normal visualized stomach. Normal small intestine. Colonic diverticulosis. Right hemicolectomy. Ventral hernia contains a loop of ileal colon anastomosis. No evidence of obstruction or inflammation. Normal abdominal aorta. Normal inferior vena cava. Normal retroperitoneum. Normal urinary bladder. Bilateral fat-containing inguinal hernias. Normal abdominal wall. Compression fracture and large lucent lesion superior endplate. No retropulsion. CT/Abdomen/Pelvis without Cont IMPRESSION: No radiodense urolithiasis. Pathologic fracture L2 level. 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 Comparison would be helpful. Otherwise follow-up MRI with and without contrast recommended. Hepatic lesion as noted above. Recommend follow-up nonemergent hepatic MRI with and without IV contrast. Electronically Signed: Tristen Quiroz MD at 16:57 EDT , CC: Dr. Trent Menjivar, DO; No Primary Care Physician Formal Service Waiter: Signed Normal [facility] Basic Metabolic Profile (BMP )on 12-08-2023 BUN/CRE 18.8 RATIO Normal 10-20 [facility] Comment on above: Performed By: #### L 100.0100, L500.2500, L300.3900 #### [facility] [address] [place], [address] CA,Total 8.9 mg/dL Normal 8.5-10.1 [facility] Comment on above: Performed By: #### L 100.0100, L500.2500, L300.3900 #### [facility] [address] [place], [address] Chloride [Moles/Vol] 109 mmol/L High 98-107 [facility] Comment on above: Performed By: #### L 100.0100, L500.2500, L300.3900 #### [facility] [address] [place], [address] CO2 [Moles/Vol] 26.0 mmol/L Normal 21.0-32.0 [facility] Comment on above: Performed By: #### L 100.0100, L500.2500, L300.3900 #### [facility] [address] [place], [address] Creatinine [Mass/Vol] 1.01 mg/dL Normal 0.70-1.30 [facility] Comment on above: Result Comment: The validity of the calculated GFR GFRAA in patients over 70 years has not been determined. Clinical correlation is essential. Performed By: #### L 100.0100, L500.2500, L300.3900 #### [facility] [address] [place], [address] ECRCL 96.05 ml/min Normal [facility] Comment on above: Performed By: #### L 100.0100, L500.2500, L300.3900 #### [facility] [address] [place], [address] EST GFR - AA 98 mL/min Normal >60 [facility] Comment on above: Result Comment: Afri can [place] GFR Calc Performed By: #### L 100.0100, L500.2500, L300.3900 #### [facility] [address] [place], [address] GAP 3 Low 5-15 [facility] Comment on above: Performed By: #### L 100.0100, L500.2500, L300.3900 #### [facility] [address] [place], [address] GFR/1.73 sq M.predicted among non-blacks MDRD (S/P/Bld) [Vol rate/Area] 81 mL/min/{1.73_m2} Normal >60 [facility] Comment on above: Result Comment: Non- GFR Calc Performed By: #### L 100.0100, L500.2500, L300.3900 #### [facility] [address] [place], [address] Glucose [Mass/Vol] 123 mg/dL High 74-106 [facility] Comment on above: Result Comment: Fast ing Glucose result from 100 to 125 mg/dL suggests IMPAIRED HOMEOSTASIS per A.D.A. criteria. Performed By: #### L 100.0100, L500.2500, L300.3900 #### [facility] [address] [place], [address] Potassium [Moles/Vol] 3.8 mmol/L Normal 3.5-5.1 [facility] Comment on above: Performed By: #### L 100.0100, L500.2500, L300.3900 #### [facility] [address] [place], [address] Sodium [Moles/Vol] 138 mmol/L Normal 136-145 [facility] Comment on above: Performed By: #### L 100.0100, L500.2500, L300.3900 #### [facility] [address] [place], [address]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 [place] [address] Performed By: #### 2 4356-8 ####[facility]ORATORYCLIA [id number] [address] [place] Protein (U) [Mass/Vol] Negative Normal Trace, Negative [facility] Comment on above: Order Comment: Speci men Type: URINE SPECIMENOrdering Facility: [facility] Address: [address] [place] [address] Performed By: #### 2 4356-8 ####[facility]ORATORYCLIA [id number] [place] [address] [place] RBC LM.HPF (Urine sed) [#/Area] 11-25 /HPF Abnormal 0-3 /HPF [facility] Comment on above: Order Comment: Speci men Type: URINE SPECIMENOrdering Facility: [facility]. [facility] Address: [address] [place] [address] Performed By: #### 2 4356-8 ####[facility] LABORATORYCLIA [id number] [address] [place] Specific gravity (U) [Rel density] 1.013 Normal 1.005-1.03 0 [facility] Comment on above: Order Comment: Speci men Type: URINE SPECIMENOrdering Facility: [facility] Address: [address] [place] [address] Performed By: #### 2 4356-8 ####[facility] LABORATORYCLIA [id number] [address] Urobilinogen Ql (U) Normal Normal Normal [facility] Comment on above: Order Comment: Speci men Type: URINE SPECIMENOrdering Facility: [facility] Address: [address] [id number] Performed By: #### 2 4356-8 ####[facility] LABORATORYCLIA [id number] [address] [place] WBC LM.HPF (Urine sed) [#/Area] 0-5 /HPF Normal 0-5 /HPF [facility] Comment on above: Order Comment: Speci men Type: URINE SPECIMENOrdering Facility: [facility] Address: [address] [place] [address] Performed By: #### 2 4356-8 ####[facility] LABORATORYCLIA [id number] [address] [place] ED Triage Noteon 12-04-2023 ED Triage Note Normal [facility] CNOVon 08-29-2023 CNOV Normal [facility] CNOVon 08-22-2023 CNOV Normal [facility] CNPNon 08-22-2023 CNPN Normal [facility] CNPNon 08-21-2023 CNPN Normal [facility] ANES POSTPROC EVALon 024 ANES POSTPROC EVAL Normal [facility] ANES PRE-OPon 08-15-2023 ANES PRE-OP Normal [facility] BRIEF OP NOTon 08-15-2023 BRIEF OP NOT Normal [facility] BRIEF OP NOT Normal [facility] HISTORY PHYSICALon HISTORY PHYSICAL Normal [facility] OPERATIVE NOon 08-15-2023 OPERATIVE NO Normal [facility] CNPNon 08-14-2023 CNPN Normal [facility] CBC W Auto Differential pane l (Bld)on 08-11-2023 Basophils (Bld) [#/Vol] 0.09 10*3/uL Normal <0.11 [facility] Comment on above: Order Comment: Speci men Type: BLOOD SPECIMENOrdering Facility: [facility] Address: [address] [place] [address] Performed By: #### 5 7021-8 ####[facility] LABORATORYCLIA [id number] [address] [place] Basophils/100 WBC (Bld) 1.1 % Normal [facility] Comment on above: Order Comment: Speci men Type: BLOOD SPECIMENOrdering Facility: [facility] Address: [address] [place] [address] Performed By: #### 5 7021-8 ####[facility] LABORATORYCLIA [id number] [address] [place] Differential cell count method Nom (Bld) Auto Normal [facility] Comment on above: Order Comment: Speci men Type: BLOOD SPECIMENOrdering Facility: [facility] Address: [address] [place] [address] Performed By: #### 5 7021-8 ####[facility] LABORATORYCLIA [id number] [address] [place] Eosinophils (Bld) [#/Vol] 0.57 10*3/uL High <0.46 [facility] Comment on above: Order Comment: Speci men Type: BLOOD SPECIMENOrdering Facility: [facility] Address: [address] [place] [address] Performed By: #### 5 7021-8 ####[facility] LABORATORYCLIA [id number] [address] Eosinophils/100 WBC (Bld) 6.7 % Normal [facility] Comment on above: Order Comment: Speci men Type: BLOOD SPECIMENOrdering Facility: [facility] Address: [address] [place] [address] Performed By: #### 5 7021-8 ####[facility] LABORATORYCLIA [id number] [address] [place] Erythrocyte distribution width (RBC) [Ratio] 14.6 % Normal 11.5-15.0 [facility] Comment on above: Order Comment: Speci men Type: BLOOD SPECIMENOrdering Facility: [facility] Address: [address] [place] [address] Performed By: #### 5 7021-8 ####[facility]ORATORYCLIA [id number] [address] [place] Hematocrit (Bld) [Volume fraction] 41.3 % Normal 39.0-51.0 [facility] Comment on above: Order Comment: Speci men Type: BLOOD SPECIMENOrdering Facility: [facility] Address: [address] [place] [address] Performed By: #### 5 7021-8 ####[facility] LABORATORYCLIA [id number] [place] [address] [place] Hemoglobin (Bld) [Mass/Vol] 13.3 g/dL Normal 13.0-17.0 [facility] Comment on above: Order Comment: Speci men Type: BLOOD SPECIMENOrdering Facility: [facility] Address: [address] [place] [address] Performed By: #### 5 7021-8 ####[facility] LABORATORYCLIA [id number] [address] [place] Immature granulocytes (Bld) [#/Vol] 10*3/uL Normal <0.10 [facility] Comment on above: Order Comment: Speci men Type: BLOOD SPECIMENOrdering Facility: [facility] Address: [address] [place] [address] Performed By: #### 5 7021-8 ####[facility] LABORATORYCLIA [id number] [address] [place] Immature granulocytes/100 WBC (Bld) 0.2 % Normal [facility] Comment on above: Order Comment: Speci men Type: BLOOD SPECIMENOrdering Facility: [facility] Address: [address] [place] [address] Performed By: #### 5 7021-8 ####[facility] LABORATORYCLIA [id number] [place] [address] [place] Lymphocytes (Bld) [#/Vol] 2.42 10*3/uL Normal 1.00-4.00 [facility] Comment on above: Order Comment: Speci men Type: BLOOD SPECIMENOrdering Facility: [facility] Address: [address] [place] [address] Performed By: #### 5 7021-8 ####[facility] LABORATORYCLIA [id number] [address] STATES [facility] Lymphocytes/100 WBC (Bld) 28.3 % Normal [facility] Comment on above: Order Comment: Speci men Type: BLOOD SPECIMENOrdering Facility: [facility] Address: [address] [place] [address] Performed By: #### 5 7021-8 ####[facility] LABORATORYCLIA [id number] [address] MCH (RBC) [Entitic mass] 29.0 pg Normal 26.0-34.0 [facility] Comment on above: Order Comment: Speci men Type: BLOOD SPECIMENOrdering Facility: [facility] Address: [address] [place] [address] Performed By: #### 5 7021-8 ####[facility] LABORATORYCLIA [id number] [address] STATES [facility] MCHC (RBC) [Mass/Vol] 32.2 g/dL Normal 30.5-36.0 [facility] Comment on above: Order Comment: Speci men Type: BLOOD SPECIMENOrdering Facility: [facility] Address: [address] [place] [address] Performed By: #### 5 7021-8 ####[facility] LABORATORYCLIA [id number] [address] STATES [facility] MCV (RBC) [Entitic vol] 90.0 fL Normal 80.0-100.0 [facility] Comment on above: Order Comment: Speci men Type: BLOOD SPECIMENOrdering Facility: [facility] Address: [address] [place] [address] Performed By: #### 5 7021-8 ####[facility] LABORATORYCLIA [id number] [address] Monocytes (Bld) [#/Vol] 0.91 10*3/uL High <0.87 [facility] Comment on above: Order Comment: Speci men Type: BLOOD SPECIMENOrdering Facility: [facility] Address: [address] [place] [address] Performed By: #### 5 7021-8 ####[facility]ORATORYCLIA [id number] [address] [place] Monocytes/100 WBC (Bld) 10.7 % Normal [facility] Comment on above: Order Comment: Speci men Type: BLOOD SPECIMENOrdering Facility: [facility] Address: [address] [place] [address] Performed By: #### 5 7021-8 ####[facility]ORATORYCLIA [id number] [place] [address] [place] Neutrophils (Bld) [#/Vol] 4.53 10*3/uL Normal 1.45-7.50 [facility] Comment on above: Order Comment: Speci men Type: BLOOD SPECIMENOrdering Facility: [facility] Address: [address] [place] [address] Performed By: #### 5 7021-8 ####[facility]ORATORYCLIA [id number] [address] [place] Neutrophils/100 WBC (Bld) 53.0 % Normal [facility] Comment on above: Order Comment: Speci men Type: BLOOD SPECIMENOrdering Facility: [facility] Address: [address] [place] [address] Performed By: #### 5 7021-8 ####[facility]ORATORYCLIA [id number] [place] [address] [place] Nucleated RBC (Bld) [#/Vol] 10*3/uL Normal <0.01 [facility] Comment on above: Order Comment: Speci men Type: BLOOD SPECIMENOrdering Facility: [facility] Address: [address] [place] [address] Performed By: #### 5 7021-8 ####[facility]ATORYCLIA [id number] [address] [place] Nucleated RBC/100 WBC (Bld) [Ratio] 0.0 /100 WBC Normal [facility] Comment on above: Order Comment: Speci men Type: BLOOD SPECIMENOrdering Facility: [facility] Address: [address] [place] [address] Performed By: #### 5 7021-8 ####[facility] LABORATORYCLIA [id number] [address] [place] Platelet mean volume (Bld) [Entitic vol] 8.9 fL Low 9.0-12.7 [facility] Comment on above: Order Comment: Speci men Type: BLOOD SPECIMENOrdering Facility: [facility] Address: [address] [place] [address] Performed By: #### 5 7021-8 ####[facility] LABORATORYCLIA [id number] [address] [place] Platelets (Bld) [#/Vol] 577 10*3/uL High 150-400 [facility] Comment on above: Order Comment: Speci men Type: BLOOD SPECIMENOrdering Facility: [facility] Address: [address] [place] [address] Performed By: #### 5 7021-8 ####[facility] LABORATORYCLIA [id number] [place] [address] [place] RBC (Bld) [#/Vol] 4.59 10*6/uL Normal 4.20-6.00 [facility] Comment on above: Order Comment: Speci men Type: BLOOD SPECIMENOrdering Facility: [facility] Address: [address] [place] [address] Performed By: #### 5 7021-8 ####[facility] LABORATORYCLIA [id number] [address] [place] WBC (Bld) [#/Vol] 8.54 10*3/uL Normal 3.70-11.00 [facility] Comment on above: Order Comment: Speci men Type: BLOOD SPECIMENOrdering Facility: [facility] Address: [address] [place] [address] Performed By: #### 5 7021-8 ####[facility] LABORATORYCLIA [id number] [place] [address] [place] CONSULTon 08-11-2023 CONSULT Normal [facility] ED NOTEon 08-11-2023 ED NOTE HNO ID: [id number] Author: TERRELL JEREZ RN Service: Emergency Medicine Author Type: Registered Nurse Type: ED Notes Filed: 08/11/2023 18:29 Note Text: Pt didn't want vitals prior to leaving Normal [facility] ED NOTE HNO ID: [id number] Author: LUBNA NEWELL RN Service: ? Author Type: Registered Nurse Type: ED Notes Filed: 08/11/2023 11:52 Note Text: Bed: 42-ED Expected date: Expected time: Means of arrival: Comments: TRIAGE Normal [facility] ED NOTE HNO ID: [id number] Author: NOEMÍ TURCIOS RN Service: Emergency Medicine Author Type: Registered Nurse Type: ED Notes Filed: 08/11/2023 11:14 Note Text: No answer when called to room x2 Normal [facility] ED NOTE HNO ID: [id number] Author: NOEMÍ TURCIOS RN Service: Emergency Medicine Author Type: Registered Nurse Type: ED Notes Filed: 08/11/2023 11:02 Note Text: No answer when called to room Normal [facility] ED NOTE HNO ID: [id number] Author: LUBNA NEWELL RN Service: ? Author Type: Registered Nurse Type: ED Notes Filed: 08/11/2023 11:00 Note Text: Bed: 40-ED Expected date: Expected time: Means of arrival: Comments: TRIAGE Normal [facility] ED PROV NOTEon 08-11-2023 ED PROV NOTE Normal [facility] CBC panel Auto (Bld)on 08-07 Erythrocyte distribution width (RBC) [Ratio] 14.4 % Normal 11.5-15.0 [facility] Comment on above: Order Comment: Speci men Type: BLOOD SPECIMENOrdering Facility: [facility] Address: [address] [place] [address] Performed By: #### 5 8410-2 ####[facility] LABORATORYCLIA [id number] [address] Hematocrit (Bld) [Volume fraction] 37.2 % Low 39.0-51.0 [facility] Comment on above: Order Comment: Speci men Type: BLOOD SPECIMENOrdering Facility: [facility] Address: [address] [place] [address] Performed By: #### 5 8410-2 ####[facility] LABORATORYCLIA [id number] [address] OF [facility] Hemoglobin (Bld) [Mass/Vol] 12.2 g/dL Low 13.0-17.0 [facility] Comment on above: Order Comment: Speci men Type: BLOOD SPECIMENOrdering Facility: [facility] Address: [address] [place] [address] Performed By: #### 5 8410-2 ####[facility] LABORATORYCLIA [id number] [address] [place] [facility] MCH (RBC) [Entitic mass] 29.5 pg Normal 26.0-34.0 [facility] Comment on above: Order Comment: Speci men Type: BLOOD SPECIMENOrdering Facility: [facility] Address: [address] [place] [address] Performed By: #### 5 8410-2 ####[facility] LABORATORYCLIA [id number] [address] [place] MCHC (RBC) [Mass/Vol] 32.8 g/dL Normal 30.5-36.0 [facility] Comment on above: Order Comment: Speci men Type: BLOOD SPECIMENOrdering Facility: [facility] Address: [address] [place] [address] Performed By: #### 5 8410-2 ####[facility] LABORATORYCLIA [id number] [address] MCV (RBC) [Entitic vol] 90.1 fL Normal 80.0-100.0 [facility] Comment on above: Order Comment: Speci men Type: BLOOD SPECIMENOrdering Facility: [facility] Address: [address] [place] [address] Performed By: #### 5 8410-2 ####[facility] LABORATORYCLIA [id number] [address] [place] Nucleated RBC (Bld) [#/Vol] 10*3/uL Normal <0.01 [facility] Comment on above: Order Comment: Speci men Type: BLOOD SPECIMENOrdering Facility: [facility] Address: [address] [place] [address] Performed By: #### 5 8410-2 ####[facility] LABORATORYCLIA [id number] [address] [place] Platelet mean volume (Bld) [Entitic vol] 9.2 fL Normal 9.0-12.7 [facility] Comment on above: Order Comment: Speci men Type: BLOOD SPECIMENOrdering Facility: [facility] Address: [address] [place] [address] Performed By: #### 5 8410-2 ####[facility] LABORATORYCLIA [id number] [address] [place] Platelets (Bld) [#/Vol] 646 10*3/uL High 150-400 [facility] Comment on above: Order Comment: Speci men Type: BLOOD SPECIMENOrdering Facility: [facility] Address: [address] [place] [address] Performed By: #### 5 8410-2 ####[facility] LABORATORYCLIA [id number] [place] [address] [place] RBC (Bld) [#/Vol] 4.13 10*6/uL Low 4.20-6.00 [facility] Comment on above: Order Comment: Speci men Type: BLOOD SPECIMENOrdering Facility: [facility] Address: [address] [place] [address] Performed By: #### 5 8410-2 ####[facility] LABORATORYCLIA [id number] [address] [place] WBC (Bld) [#/Vol] 7.42 10*3/uL Normal 3.70-11.00 [facility] Comment on above: Order Comment: Speci men Type: BLOOD SPECIMENOrdering Facility: [facility] Address: [address] [place] [address] Performed By: #### 5 8410-2 ####[facility] LABORATORYCLIA [id number] [place] [address] [facility] CNDSon 08-07-2023 CNDS Normal [facility] CASE MGT INIT ASSESon 2023 CASE MGT INIT ASSES Normal [facility] CONSULT PROGon 08-06-2023 CONSULT PROG Normal [facility] ED NOTEon 08-06-2023 ED NOTE HNO ID: [id number] Author: NIDA MCDONNELL RN Service: Emergency Medicine Author Type: Registered Nurse Type: ED Notes Filed: 08/06/2023 06:13 Note Text: [facility] FRANKIE [facility] Normal [facility] ED NOTE HNO ID: [id number] Author: NIDA MCDONNELL RN Service: Emergency Medicine Author Type: Registered Nurse Type: ED Notes Filed: 08/06/2023 04:19 Note Text: Pt ambulating to restroom independently, steady on feet Normal [facility] ED NOTE HNO ID: [id number] Author: NIDA MCDONNELL RN Service: Emergency Medicine Author Type: Registered Nurse Type: ED Notes Filed: 08/06/2023 01:47 Note Text: Waiting on Benefix to be delivered by pharmacy Normal [facility] ED PROV NOTEon 08-06-2023 ED PROV NOTE Normal [facility] ED PROV NOTE Normal [facility] HISTORY PHYSICALon HISTORY PHYSICAL Normal [facility] CBC W Auto Differential pane l (Bld)on 08-05-2023 Basophils (Bld) [#/Vol] 0.09 10*3/uL Normal <0.11 [facility] Comment on above: Order Comment: Speci men Type: BLOOD SPECIMENOrdering Facility: [facility] Address: [address] [place] [address] Performed By: #### 5 7021-8 ####[facility]ATORYCLIA [id number] [address] [place] Basophils/100 WBC (Bld) 1.1 % Normal [facility] Comment on above: Order Comment: Speci men Type: BLOOD SPECIMENOrdering Facility: [facility] Address: [address] [place] [address] Performed By: #### 5 7021-8 ####[facility]ATORYCLIA [id number] [address] [place] Differential cell count method Nom (Bld) Auto Normal [facility] Comment on above: Order Comment: Speci men Type: BLOOD SPECIMENOrdering Facility: [facility] Address: [address] [place] [address] Performed By: #### 5 7021-8 ####[facility] LABORATORYCLIA [id number] [address] [place] Eosinophils (Bld) [#/Vol] 1.23 10*3/uL High <0.46 [facility] Comment on above: Order Comment: Speci men Type: BLOOD SPECIMENOrdering Facility: [facility] Address: [address] [place] [address] Performed By: #### 5 7021-8 ####[facility] LABORATORYCLIA [id number] [address] [place] Eosinophils/100 WBC (Bld) 14.7 % Normal [facility] Comment on above: Order Comment: Speci men Type: BLOOD SPECIMENOrdering Facility: [facility] Address: [address] [place] [address] Performed By: #### 5 7021-8 ####[facility]ATORYCLIA [id number] [address] [place] Erythrocyte distribution width (RBC) [Ratio] 14.3 % Normal 11.5-15.0 [facility] Comment on above: Order Comment: Speci men Type: BLOOD SPECIMENOrdering Facility: [facility] Address: [address] [place] [address] Performed By: #### 5 7021-8 ####[facility]ATORYCLIA [id number] [address] [place] Hematocrit (Bld) [Volume fraction] 38.5 % Low 39.0-51.0 [facility] Comment on above: Order Comment: Speci men Type: BLOOD SPECIMENOrdering Facility: [facility] Address: [address] [place] [address] Performed By: #### 5 7021-8 ####[facility] LABORATORYCLIA [id number] [address] [place] Hemoglobin (Bld) [Mass/Vol] 12.2 g/dL Low 13.0-17.0 [facility] Comment on above: Order Comment: Speci men Type: BLOOD SPECIMENOrdering Facility: [facility] Address: [address] [place] [address] Performed By: #### 5 7021-8 ####[facility] LABORATORYCLIA [id number] [address] [place] Immature granulocytes (Bld) [#/Vol] 10*3/uL Normal <0.10 [facility] Comment on above: Order Comment: Speci men Type: BLOOD SPECIMENOrdering Facility: [facility] Address: [address] [place] [address] Performed By: #### 5 7021-8 ####[facility] LABORATORYCLIA [id number] [address] [place] Immature granulocytes/100 WBC (Bld) 0.2 % Normal [facility] Comment on above: Order Comment: Speci men Type: BLOOD SPECIMENOrdering Facility: [facility] Address: [address] [place] [address] Performed By: #### 5 7021-8 ####[facility]ORATORYCLIA [id number] [place] [address] [place] Lymphocytes (Bld) [#/Vol] 2.85 10*3/uL Normal 1.00-4.00 [facility] Comment on above: Order Comment: Speci men Type: BLOOD SPECIMENOrdering Facility: [facility] Address: [address] [place] [address] Performed By: #### 5 7021-8 ####[facility] LABORATORYCLIA [id number] [address] [place] [facility] Lymphocytes/100 WBC (Bld) 34.0 % Normal [facility] Comment on above: Order Comment: Speci men Type: BLOOD SPECIMENOrdering Facility: [facility] Address: [address] [place] [address] Performed By: #### 5 7021-8 ####[facility] LABORATORYCLIA [id number] [address] [place] [facility] MCH (RBC) [Entitic mass] 28.7 pg Normal 26.0-34.0 [facility] Comment on above: Order Comment: Speci men Type: BLOOD SPECIMENOrdering Facility: [facility] Address: [address] [place] [address] Performed By: #### 5 7021-8 ####[facility] LABORATORYCLIA [id number] [address] [place] MCHC (RBC) [Mass/Vol] 31.7 g/dL Normal 30.5-36.0 [facility] Comment on above: Order Comment: Speci men Type: BLOOD SPECIMENOrdering Facility: [facility] Address: [address] [place] [address] Performed By: #### 5 7021-8 ####[facility] LABORATORYCLIA [id number] [address] [place] MCV (RBC) [Entitic vol] 90.6 fL Normal 80.0-100.0 [facility] Comment on above: Order Comment: Speci men Type: BLOOD SPECIMENOrdering Facility: [facility] Address: [address] [place] [address] Performed By: #### 5 7021-8 ####[facility] LABORATORYCLIA [id number] [address] [place] Monocytes (Bld) [#/Vol] 0.85 10*3/uL Normal <0.87 [facility] Comment on above: Order Comment: Speci men Type: BLOOD SPECIMENOrdering Facility: [facility] Address: [address] [place] [address] Performed By: #### 5 7021-8 ####[facility]ATORYCLIA [id number] [address] [place] Monocytes/100 WBC (Bld) 10.1 % Normal [facility] Comment on above: Order Comment: Speci men Type: BLOOD SPECIMENOrdering Facility: [facility] Address: [address] [place] [address] Performed By: #### 5 7021-8 ####[facility]ATORYCLIA [id number] [address] [place] Neutrophils (Bld) [#/Vol] 3.35 10*3/uL Normal 1.45-7.50 [facility] Comment on above: Order Comment: Speci men Type: BLOOD SPECIMENOrdering Facility: [facility] Address: [address] [place] [address] Performed By: #### 5 7021-8 ####[facility]ORYCLIA [id number] [address] [place] Neutrophils/100 WBC (Bld) 39.9 % Normal [facility] Comment on above: Order Comment: Speci men Type: BLOOD SPECIMENOrdering Facility: [facility] Address: [address] [place] [address] Performed By: #### 5 7021-8 ####[facility]ORATORYCLIA [id number] [place] [address] [place] Nucleated RBC (Bld) [#/Vol] 10*3/uL Normal <0.01 [facility] Comment on above: Order Comment: Speci men Type: BLOOD SPECIMENOrdering Facility: [facility] Address: [address] [place] [address] Performed By: #### 5 7021-8 ####[facility]ATORYCLIA [id number] [address] [place] Nucleated RBC/100 WBC (Bld) [Ratio] 0.0 /100 WBC Normal [facility] Comment on above: Order Comment: Speci men Type: BLOOD SPECIMENOrdering Facility: [facility] Address: [address] [place] [address] Performed By: #### 5 7021-8 ####[facility] LABORATORYCLIA [id number] [place] [address] [place] Platelet mean volume (Bld) [Entitic vol] 8.9 fL Low 9.0-12.7 [facility] Comment on above: Order Comment: Speci men Type: BLOOD SPECIMENOrdering Facility: [facility] Address: [address] [place] [address] Performed By: #### 5 7021-8 ####[facility] LABORATORYCLIA [id number] [address] [place] Platelets (Bld) [#/Vol] 659 10*3/uL High 150-400 [facility] Comment on above: Order Comment: Speci men Type: BLOOD SPECIMENOrdering Facility: [facility] Address: [address] [place] [address] Performed By: #### 5 7021-8 ####[facility] LABORATORYCLIA [id number] [place] [address] [place] RBC (Bld) [#/Vol] 4.25 10*6/uL Normal 4.20-6.00 [facility] Comment on above: Order Comment: Speci men Type: BLOOD SPECIMENOrdering Facility: [facility] Address: [address] [place] [address] Performed By: #### 5 7021-8 ####[facility] LABORATORYCLIA [id number] [address] [place] WBC (Bld) [#/Vol] 8.39 10*3/uL Normal 3.70-11.00 [facility] Comment on above: Order Comment: Speci men Type: BLOOD SPECIMENOrdering Facility: [facility] Address: [address] [place] [address] [place] [id number] Performed By: #### 5 7021-8 ####[facility] LABORATORYCLIA [id number] [place] [address] [place] CNOVon 08-05-2023 CNOV Normal [facility] ED Triage Noteon 08-05-2023 ED Triage Note Normal [facility] CNOVon 07-25-2023 CNOV Normal [facility] CNOVon 07-23-2023 CNOV Normal [facility] CNPNon 07-22-2023 CNPN Normal [facility] ANES POSTPROC EVALon 024 ANES POSTPROC EVAL Normal [facility] ANES PRE-OPon 07-18-2023 ANES PRE-OP Normal [facility] BRIEF OP NOTon 07-18-2023 BRIEF OP NOT Normal [facility] OPERATIVE NOon 07-18-2023 OPERATIVE NO Normal [facility] CNOVon 07-15-2023 CNOV Normal [facility] CNOVon 07-10-2023 CNOV Normal [facility] CNOVon 07-07-2023 CNOV Normal [facility] Emergency Department Summary on 07-05-2023 Emergency Department Summary [facility] Medical Records Department [address] [place] [address] Emergency Department Summary 07/05/23 MR#: [id number] Acct: [id number] Name: ISIDRO SMITH ALPESH Rep #: [id number] : 1965 57 From: Setvie Cassidy DO PCP: Care Physician,No Primary Status:REG ER Location: ED HPI History of Present Illness Chief Complaint: Wound Narrative Narrative: 57-year-old male presenting with wound on the left forearm. 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 He had a fasciotomy done at [facility]. Patient states the wound VAC was placed when he was under anesthesia. He reports that it came loose last evening. He apparently has taken this down and duct taped it back together on his arm trying to get a seal. The wound VAC has filled with blood. Patient states his left arm does not hurt and he has sensation which is normal. Denies any new trauma. He has been able to use his left hand/arm without any difficulty. [facility] Medical History Factor IX (functional) deficiency Hx of fracture of wrist Allergy/AdvReac Type Severity Reaction Status Date / Time ciprofloxacin [From Cipro] Allergy Shortness Verified 07/05/23 07:56 of breath codeine Allergy Shortness Verified 07/05/23 07:56 of breath Surgical History History of colon surgery History of partial surgical removal of colon Hx of splenectomy Social History Smoking Status: Current every day smoker tobacco type: cigarettes ROS ROS ED Constitutional Constitutional ED: Denies chills, fever(s) or sweats Eyes Eyes: Denies blurry vision or change in vision ENT ENT ED: Denies ear pain or sore throat Cardiovascular Cardiovascular: Denies chest pain, palpitations or racing heartbeat Respiratory/Chest Respiratory/Chest: Denies cough, dyspnea or sputum Gastrointestinal Gastrointestinal: Denies abdominal pain, constipation, diarrhea, nausea or vomiting Genitourinary Genitourinary ED: Denies dysuria, hematuria or urinary frequency Musculoskeletal Musculoskeletal: Denies arthralgias, myalgias or neck pain Integumentary Denies abscess, Abrasions or rash Neurologic Neurologic: Denies headache(s), paresthesias or weakness Psychiatric Psychiatric: Denies anxiety, depression, suicidal ideation or suicidal thoughts Endocrine Endocrinology: Denies polydipsia or polyuria EXAM Physical Exam Const Vital Signs: 07/05/23 07:57 Temperature 97.6 F L Temperature Source Temporal Pulse Rate 98 Respiratory Rate 16 Blood Pressure 134/78 H Blood Pressure Mean 96 Pulse Ox 98 Oxygen Delivery Method Room Air Positive well nourished General Appearance ED: cyanotic HEENT normocephalic and trauma Eyes PERRL and EOMs intact bilaterally Cardio regular rate and regular rhythm Extremity Extremity Narrative: Left forearm has a wound VAC in place which is ducked taped. Left hand neurovascular intact. He is actually using this to operate his phone. Sensation is normal. Motor strength normal. No obvious bleeding from the wound VAC site. Neuro Sensorium / Orientation: alert Psych mental status grossly normal MDM MDM MDM Narrative Medical decision making narrative: 57-year-old male presenting with wound on the left forearm. He has duct tape this in place. I spoke with Dr. Garcia the plastic surgeon who did the procedure. He states he did a skin graft and to leave this wound alone. I did offer to have the nurses change the dressing and try to seal the wound VAC but he states he does not want anybody to mess with the graft and to leave it in place and patient should take his pain medicines and antibiotics and follow-up for previously scheduled appointment. Patient was counseled. Return precautions discussed. Impression: 1. Wound check Lab Data Attestation: I reviewed the patient's lab results. Discharge Plan Triage Chief Complaint: Wound ED Provider: Stevie Cassidy Dx/Rx/DC Orders Primary Care Provider: Care Physician,Deidre Primary Referrals: Care Physician,No Primary [Primary Care Provider] - What to do if you have Problems For any increased pain, shortness of breath, bleeding, nausea or vomiting, chest pain, or any unexpected problems, contact your Primary Care Provider. Call [facility] ([phone]) or report to the closest Emergency Room. Call 911 if necessary. 07/05/23 0986 Cosigner Signature (if applicable): CC: No Primary Care Physician Signed Normal [facility] ANES POSTPROC EVALon 024 ANES POSTPROC EVAL Normal [facility] ANES PRE-OPon 07-03-2023 ANES PRE-OP Normal [facility] BRIEF OP NOTon 07-03-2023 BRIEF OP NOT Normal [facility] CNPNon 07-03-2023 CNPN Normal [facility] HISTORY PHYSICALon HISTORY PHYSICAL Normal [facility] NURSING PROGon 07-03-2023 NURSING PROG Normal [facility] OPERATIVE NOon 07-03-2023 OPERATIVE NO Normal [facility] CNOVon 07-02-2023 CNOV Normal [facility] ABSCESS AND WOUND CULTURE WI TH GRAM STAINon 06-27-2023 Bacteria identified Cx Nom (Wound) Few Staphylococcus aureus Abnormal [facility] Bacteria identified Cx Nom (Wound) Rare Staphylococcus epidermidis Abnormal [facility] ANES POSTPROC EVALon 2 023 ANES POSTPROC EVAL Normal [facility] ANES PRE-OPon 06-27-2023 ANES PRE-OP Normal [facility] BRIEF OP NOTon 06-27-2023 BRIEF OP NOT Normal [facility] Bacteria identified Cx Nom ( Wound)on 06-27-2023 Microscopic observation Smear Nom (Unsp spec) Positive Abnormal [facility] Microscopic observation Smear Nom (Unsp spec) Many Polymorphonuclear leukocytes Abnormal [facility] HISTORY PHYSICALon HISTORY PHYSICAL Normal [facility] OPERATIVE NOon 06-27-2023 OPERATIVE NO Normal [facility] ABSCESS AND WOUND CULTURE WI TH GRAM STAINon 06-24-2023 Bacteria identified Cx Nom (Wound) Invalid Interpretation Code [facility] Bacteria Wnd Culton 06-24-20 Bacteria identified Cx Nom (Wound) Abnormal [facility] Comment on above: Performed By: #### 6 462-6 ####[facility] LABORATORYCLIA [id number] [place] [address] [place] CNOVon 06-24-2023 CNOV Normal [facility] ALLIED HEALTHon 06-23-2023 ALLIED HEALTH Normal [facility] CBC W Auto Differential pane l (Bld)on 06-23-2023 Basophils (Bld) [#/Vol] 0.05 10*3/uL Normal <0.11 [facility] Comment on above: Order Comment: Speci men Type: BLOOD SPECIMENOrdering Facility: [facility] Address: [address] [place] [address] Performed By: #### 5 7021-8 ####[facility] LABORATORYCLIA [id number] [place] [address] [place] Basophils/100 WBC (Bld) 0.5 % Normal [facility] Comment on above: Order Comment: Speci men Type: BLOOD SPECIMENOrdering Facility: [facility] Address: [address] [place] [address] Performed By: #### 5 7021-8 ####[facility] LABORATORYCLIA [id number] [place] [address] [place] Differential cell count method Nom (Bld) Auto Normal [facility] Comment on above: Order Comment: Speci men Type: BLOOD SPECIMENOrdering Facility: [facility] Address: [address] [place] [address] Performed By: #### 5 7021-8 ####[facility]ORATORYCLIA [id number] [address] [place] Eosinophils (Bld) [#/Vol] 0.62 10*3/uL High <0.46 [facility] Comment on above: Order Comment: Speci men Type: BLOOD SPECIMENOrdering Facility: [facility] Address: [address] [place] [address] Performed By: #### 5 7021-8 ####[facility] LABORATORYCLIA [id number] [address] Eosinophils/100 WBC (Bld) 5.7 % Normal [facility] Comment on above: Order Comment: Speci men Type: BLOOD SPECIMENOrdering Facility: [facility] Address: [address] [place] [address] Performed By: #### 5 7021-8 ####[facility] LABORATORYCLIA [id number] [address] Erythrocyte distribution width (RBC) [Ratio] 14.1 % Normal 11.5-15.0 [facility] Comment on above: Order Comment: Speci men Type: BLOOD SPECIMENOrdering Facility: [facility] Address: [address] [place] [address] Performed By: #### 5 7021-8 ####[facility] LABORATORYCLIA [id number] [address] [place] Hematocrit (Bld) [Volume fraction] 38.5 % Low 39.0-51.0 [facility] Comment on above: Order Comment: Speci men Type: BLOOD SPECIMENOrdering Facility: [facility] Address: [address] [place] [address] Performed By: #### 5 7021-8 ####[facility]ORATORYCLIA [id number] [address] [place] Hemoglobin (Bld) [Mass/Vol] 12.9 g/dL Low 13.0-17.0 [facility] Comment on above: Order Comment: Speci men Type: BLOOD SPECIMENOrdering Facility: [facility] Address: [address] [place] [address] Performed By: #### 5 7021-8 ####[facility]ORATORYCLIA [id number] [address] Immature granulocytes (Bld) [#/Vol] 0.07 10*3/uL Normal <0.10 [facility] Comment on above: Order Comment: Speci men Type: BLOOD SPECIMENOrdering Facility: [facility] Address: [address] [place] [address] Performed By: #### 5 7021-8 ####[facility] LABORATORYCLIA [id number] [address] Immature granulocytes/100 WBC (Bld) 0.6 % Normal [facility] Comment on above: Order Comment: Speci men Type: BLOOD SPECIMENOrdering Facility: [facility] Address: [address] [place] [address] Performed By: #### 5 7021-8 ####[facility] LABORATORYCLIA [id number] [address] [place] Lymphocytes (Bld) [#/Vol] 1.85 10*3/uL Normal 1.00-4.00 [facility] Comment on above: Order Comment: Speci men Type: BLOOD SPECIMENOrdering Facility: [facility] Address: [address] [place] [address] Performed By: #### 5 7021-8 ####[facility]ORATORYCLIA [id number] [address] [place] Lymphocytes/100 WBC (Bld) 16.9 % Normal [facility] Comment on above: Order Comment: Speci men Type: BLOOD SPECIMENOrdering Facility: [facility] Address: [address] [place] [address] Performed By: #### 5 7021-8 ####[facility]ORATORYCLIA [id number] [place] [address] [place] MCH (RBC) [Entitic mass] 32.4 pg Normal 26.0-34.0 [facility] Comment on above: Order Comment: Speci men Type: BLOOD SPECIMENOrdering Facility: [facility] Address: [address] [place] [address] Performed By: #### 5 7021-8 ####[facility] LABORATORYCLIA [id number] [address] [place] MCHC (RBC) [Mass/Vol] 33.5 g/dL Normal 30.5-36.0 [facility] Comment on above: Order Comment: Speci men Type: BLOOD SPECIMENOrdering Facility: [facility] Address: [address] [place] [address] Performed By: #### 5 7021-8 ####[facility] LABORATORYCLIA [id number] [address] [place] OF [facility] MCV (RBC) [Entitic vol] 96.7 fL Normal 80.0-100.0 [facility] Comment on above: Order Comment: Speci men Type: BLOOD SPECIMENOrdering Facility: [facility] Address: [address] [place] [address] Performed By: #### 5 7021-8 ####[facility] LABORATORYCLIA [id number] [address] [place] Monocytes (Bld) [#/Vol] 1.11 10*3/uL High <0.87 [facility] Comment on above: Order Comment: Speci men Type: BLOOD SPECIMENOrdering Facility: [facility] Address: [address] [place] [address] Performed By: #### 5 7021-8 ####[facility] LABORATORYCLIA [id number] [address] Monocytes/100 WBC (Bld) 10.2 % Normal [facility] Comment on above: Order Comment: Speci men Type: BLOOD SPECIMENOrdering Facility: [facility] Address: [address] [place] [address] Performed By: #### 5 7021-8 ####[facility] LABORATORYCLIA [id number] [place] [address] [place] Neutrophils (Bld) [#/Vol] 7.23 10*3/uL Normal 1.45-7.50 [facility] Comment on above: Order Comment: Speci men Type: BLOOD SPECIMENOrdering Facility: [facility] Address: [address] [place] [address] Performed By: #### 5 7021-8 ####[facility] LABORATORYCLIA [id number] [address] [place] Neutrophils/100 WBC (Bld) 66.1 % Normal [facility] Comment on above: Order Comment: Speci men Type: BLOOD SPECIMENOrdering Facility: [facility] Address: [address] [place] [address] Performed By: #### 5 7021-8 ####[facility] LABORATORYCLIA [id number] [place] [address] [place] Nucleated RBC (Bld) [#/Vol] 10*3/uL Normal <0.01 [facility] Comment on above: Order Comment: Speci men Type: BLOOD SPECIMENOrdering Facility: [facility] Address: [address] [place] [address] Performed By: #### 5 7021-8 ####[facility] LABORATORYCLIA [id number] [address] [place] Nucleated RBC/100 WBC (Bld) [Ratio] 0.0 /100 WBC Normal [facility] Comment on above: Order Comment: Speci men Type: BLOOD SPECIMENOrdering Facility: [facility] Address: [address] [place] [address] Performed By: #### 5 7021-8 ####[facility] LABORATORYCLIA [id number] [address] [place] Platelet mean volume (Bld) [Entitic vol] 9.1 fL Normal 9.0-12.7 [facility] Comment on above: Order Comment: Speci men Type: BLOOD SPECIMENOrdering Facility: [facility] Address: [address] [place] [address] Performed By: #### 5 7021-8 ####[facility] LABORATORYCLIA [id number] [address] OF [facility] Platelets (Bld) [#/Vol] 545 10*3/uL High 150-400 [facility] Comment on above: Order Comment: Speci men Type: BLOOD SPECIMENOrdering Facility: [facility] Address: [address] [place] [address] Performed By: #### 5 7021-8 ####[facility] LABORATORYCLIA [id number] [address] [place] RBC (Bld) [#/Vol] 3.98 10*6/uL Low 4.20-6.00 [facility] Comment on above: Order Comment: Speci men Type: BLOOD SPECIMENOrdering Facility: [facility] Address: [address] [place] [address] Performed By: #### 5 7021-8 ####[facility] LABORATORYCLIA [id number] [address] OF [facility] WBC (Bld) [#/Vol] 10.93 10*3/uL Normal 3.70-11.00 [facility] Comment on above: Order Comment: Speci men Type: BLOOD SPECIMENOrdering Facility: [facility] Address: [address] [place] [address] Performed By: #### 5 7021-8 ####[facility] LABORATORYCLIA [id number] [address] [place] CHEST W IVCON PEon 2022 CT CHEST W IVCON PE Normal [facility] Comprehensive metabolic 2000 panelon 06-23-2023 Albumin [Mass/Vol] 3.7 g/dL Low 3.9-4.9 [facility] Comment on above: Order Comment: Speci men Type: BLOOD SPECIMENOrdering Facility: [facility] Address: [address] [place] [address] Performed By: #### 1 9123-9, 3040-3, 55273-3 ####[facility] LABORATORYCLIA [id number] [place] [address] [place] ALP [Catalytic activity/Vol] 113 U/L Normal 38-113 [facility] Comment on above: Order Comment: Speci men Type: BLOOD SPECIMENOrdering Facility: [facility] Address: [address] [place] [address] Performed By: #### 1 9123-9, 3040-3, 49357-6 ####[facility] LABORATORYCLIA [id number] [place] [address] [place] ALT With P-5'-P [Catalytic activity/Vol] 31 U/L Normal 10-54 [facility] Comment on above: Order Comment: Speci men Type: BLOOD SPECIMENOrdering Facility: [facility] Address: [address] [place] [address] Performed By: #### 1 9123-9, 3040-3, 12130-7 ####[facility] LABORATORYCLIA [id number] [address] STATES OF [facility] Anion gap [Moles/Vol] 10 mmol/L Normal 9-18 [facility] Comment on above: Order Comment: Speci men Type: BLOOD SPECIMENOrdering Facility: [facility] Address: [address] [place] [address] Performed By: #### 1 9123-9, 3040-3, 09579-7 ####[facility] LABORATORYCLIA [id number] [address] [place] AST With P-5'-P [Catalytic activity/Vol] 34 U/L Normal 14-40 [facility] Comment on above: Order Comment: Speci men Type: BLOOD SPECIMENOrdering Facility: [facility] Address: [address] [place] [address] Performed By: #### 1 9123-9, 3040-3, 86160-0 ####[facility] LABORATORYCLIA [id number] [place] [address] [place] Bilirubin [Mass/Vol] 0.6 mg/dL Normal 0.2-1.3 [facility] Comment on above: Order Comment: Speci men Type: BLOOD SPECIMENOrdering Facility: [facility] Address: [address] [place] [address] Performed By: #### 1 9123-9, 3, ####[facility] LABORATORYCLIA [id number] [place] [address] [place] Calcium [Mass/Vol] 9.2 mg/dL Normal 8.5-10.2 [facility] Comment on above: Order Comment: Speci men Type: BLOOD SPECIMENOrdering Facility: [facility] Address: [address] [place] [address] Performed By: #### 1 9123-9, 3, ####[facility] LABORATORYCLIA [id number] [place] [address] [place] Chloride [Moles/Vol] 104 mmol/L Normal 97-105 [facility] Comment on above: Order Comment: Speci men Type: BLOOD SPECIMENOrdering Facility: [facility] Address: [address] [place] [address] Performed By: #### 1 9123-9, 3, ####[facility] LABORATORYCLIA [id number] [place] [address] [place] CO2 [Moles/Vol] 27 mmol/L Normal 22-30 [facility] Comment on above: Order Comment: Speci men Type: BLOOD SPECIMENOrdering Facility: [facility] Address: [address] [place] [address] Performed By: #### 1 9123-9, 3, ####[facility] LABORATORYCLIA [id number] [place] [address] [place] Creatinine [Mass/Vol] 1.10 mg/dL Normal 0.73-1.22 [facility] Comment on above: Order Comment: Speci men Type: BLOOD SPECIMENOrdering Facility: [facility] Address: [address] [place] [address] Performed By: #### 1 9123-9, 3, ####[facility]IA [id number] [address] Creatinine and Glomerular filtration rate.predicted panel (S/P/Bld) 79 mL/min/1.73m??? Normal >=60 [facility] Comment on above: Order Comment: Speclorrie caitie Type: BLOOD SPECIMENOrdering Facility: [facility] Address: [address] [place] [address] Result Comment: Mariaa mated Glomerular Filtration Rate (eGFR) is calculated using the 2020 CKD-EPI creatinine equation. This equation utilizes serum creatinine, sex, and age as parameters. The creatinine assay has traceable calibration to isotope dilution-mass spectrometry. Refer to KDIGO guidelines for clinical interpretation. In patients with unstable renal function, e.g. those with acute kidney injury, the eGFR may not accurately reflect actual GFR. Performed By: #### 1 9123-9, 3040-3, 21350-7 ####[facility] [id number] [address] Glucose [Mass/Vol] 104 mg/dL High 74-99 [facility] Comment on above: Order Comment: Speclorrie blood Type: BLOOD SPECIMENOrdering Facility: [facility] Address: [address] [place] [address] Result Comment: The [place] Diabetes Association (ADA) provides guidance for cutoff values for fasting glucose and random glucose. The ADA defines fasting as no caloric intake for at least 8 hours. Fasting plasma glucose results between 100 to 125 mg/dL indicate increased risk for diabetes (prediabetes).Fasting plasma glucose results greater than or equal to 126 mg/dL meet the criteria for diagnosis of diabetes. In the absence of unequivocal hyperglycemia, results should be confirmed by repeat testing. In a patient with classic symptoms of hyperglycemia or hyperglycemic crisis, random plasma glucose results greater than or equal to 200 mg/dL meet the criteria for diagnosis of diabetes.Reference: Standards of Medical Care in Diabetes 2016, [employer] Diabetes Association. Diabetes Care. 2016.39(Suppl 1). Performed By: #### 1 9123-9, 3040-3, 20710-1 ####[facility]PITALIA [id number] [place] [address] [place] [facility] Potassium [Moles/Vol] 4.6 mmol/L Normal 3.7-5.1 [facility] Comment on above: Order Comment: Speci men Type: BLOOD SPECIMENOrdering Facility: [facility] Address: [address] [place] [address] Performed By: #### 1 9123-9, 3040-3, 91144-8 ####[facility]ATORYCLIA [id number] [place] [address] [place] Protein [Mass/Vol] 6.6 g/dL Normal 6.3-8.0 [facility] Comment on above: Order Comment: Speci men Type: BLOOD SPECIMENOrdering Facility: [facility] Address: [address] [place] [address] Performed By: #### 1 9123-9, 3040-3, 95799-3 ####[facility]ATORYCLIA [id number] [address] [place] Sodium [Moles/Vol] 141 mmol/L Normal 136-144 [facility] Comment on above: Order Comment: Speci men Type: BLOOD SPECIMENOrdering Facility: [facility] Address: [address] [place] [address] Performed By: #### 1 9123-9, 3, 53076-4 ####[facility] LABORATORYCLIA [id number] [place] [address] [place] Urea nitrogen [Mass/Vol] 17 mg/dL Normal 9-24 [facility] Comment on above: Order Comment: Speci men Type: BLOOD SPECIMENOrdering Facility: [facility] Address: [address] [place] [address] Performed By: #### 1 9123-9, 3040-3, 23180-1 ####[facility] LABORATORYCLIA [id number] [place] [address] [place] ECG COMPLETEon 06-23-2023 ECG COMPLETE Normal [facility] ED PROV NOTEon 06-23-2023 ED PROV NOTE Normal [facility] ED Triage Noteon 06-23-2023 ED Triage Note Normal [facility] HIGH SENSITIVITY TROPONIN T (INITIAL)on 06-23-2023 Troponin T.cardiac High sensitivity method [Mass/Vol] 17 ng/L High <12 [facility] Comment on above: Order Comment: Kartik blood Type: BLOOD SPECIMENOrdering Facility: [facility] Address: [address] [place] [address] Result Comment: When assessing risk for acute coronary syndromes: In patients undergoing blood draw greater than or equal to 2 hours from symptom onset, with history of very low to moderate risk and non-ischemic ECG, an initial hs-Troponin T less than 12 ng/L AND a 1 hour delta hs-Troponin T less than 3 ng/L should be considered very low risk for 30 day MACE. Performed By: #### L [id number] ####[facility] LABORATORYCLIA [id number] [address] [place] HIGH SENSITIVITY TROPONIN T (SECOND)on 06-23-2023 Troponin T.cardiac High sensitivity method [Mass/Vol] 11 ng/L Normal <12 [facility] Comment on above: Order Comment: Kartik blood Type: BLOOD SPECIMENOrdering Facility: [facility] Address: [address] [place] [address] Result Comment: When assessing risk for acute coronary syndromes: In patients undergoing blood draw greater than or equal to 2 hours from symptom onset, with history of very low to moderate risk and non-ischemic ECG, an initial hs-Troponin T less than 12 ng/L AND a 1 hour delta hs-Troponin T less than 3 ng/L should be considered very low risk for 30 day MACE. Performed By: #### L [id number] ####[facility] LABORATORYCLIA [id number] [address] [place] HIGH SENSITIVITY TROPONIN T (THIRD) 3 HRS AFTER INITIALon 06-23-2023 Troponin T.cardiac High sensitivity method [Mass/Vol] 12 ng/L High <12 [facility] Comment on above: Order Comment: Kartik blood Type: BLOOD SPECIMENOrdering Facility: [facility] Address: [address] [place] [address] Result Comment: When assessing risk for acute coronary syndromes: In patients undergoing blood draw greater than or equal to 2 hours from symptom onset, with history of very low to moderate risk and non-ischemic ECG, an initial hs-Troponin T less than 12 ng/L AND a 1 hour delta hs-Troponin T less than 3 ng/L should be considered very low risk for 30 day MACE. Performed By: #### L [id number] ####[facility] LABORATORYCLIA [id number] [place] [address] [place] Lipase SerPl-cCncon 06-23-20 Lipase [Catalytic activity/Vol] 31 U/L Normal 16-61 [facility] Comment on above: Order Comment: Speci men Type: BLOOD SPECIMENOrdering Facility: [facility] Address: [place] [address] Performed By: #### 1 9123-9, 3040-3, 13940-4 ####[facility] LABORATORYCLIA [id number] [place] [address] [place] Magnesium SerPl-mCncon 06-23 Magnesium [Mass/Vol] 2.0 mg/dL Normal 1.7-2.3 [facility] Comment on above: Order Comment: Speci men Type: BLOOD SPECIMENOrdering Facility: [facility] Address: [place] [address] Performed By: #### 1 9123-9, 3040-3, 04972-7 ####[facility] LABORATORYCLIA [id number] [place] [address] [place] CNOVon 06-20-2023 CNOV Normal [facility] Basic metabolic 2000 panelon 06-13-2023 Anion gap [Moles/Vol] 11 mmol/L Normal 9-18 [facility] Comment on above: Order Comment: Speci men Type: BLOOD SPECIMENOrdering Facility: [facility] Address: [place] [address] Performed By: #### 2 4321-2 ####[facility] LABORATORYCLIA [id number] [place] [address] [place] Calcium [Mass/Vol] 8.9 mg/dL Normal 8.5-10.2 [facility] Comment on above: Order Comment: Speci men Type: BLOOD SPECIMENOrdering Facility: [facility] Address: [address] [place] [address] Performed By: #### 2 4321-2 ####[facility] LABORATORYCLIA [id number] [address] [place] Chloride [Moles/Vol] 106 mmol/L High 97-105 [facility] Comment on above: Order Comment: Speci men Type: BLOOD SPECIMENOrdering Facility: [facility] Address: [address] [place] [address] Performed By: #### 2 4321-2 ####[facility] LABORATORYCLIA [id number] [place] [id number] [place] CO2 [Moles/Vol] 24 mmol/L Normal 22-30 [facility] Comment on above: Order Comment: Speci men Type: BLOOD SPECIMENOrdering Facility: [facility] Address: [address] [place] [address] Performed By: #### 2 4321-2 ####[facility] LABORATORYCLIA [id number] [address] [place] Creatinine [Mass/Vol] 0.99 mg/dL Normal 0.73-1.22 [facility] Comment on above: Order Comment: Speci men Type: BLOOD SPECIMENOrdering Facility: [facility] Address: [address] [place] [address] Performed By: #### 2 4321-2 ####[facility] LABORATORYCLIA [id number] [address] Creatinine and Glomerular filtration rate.predicted panel (S/P/Bld) 89 mL/min/1.73m??? Normal >=60 [facility] Comment on above: Order Comment: Speci men Type: BLOOD SPECIMENOrdering Facility: [facility] Address: [address] [place] [address] Result Comment: Mariaa mated Glomerular Filtration Rate (eGFR) is calculated using the 2020 CKD-EPI creatinine equation. This equation utilizes serum creatinine, sex, and age as parameters. The creatinine assay has traceable calibration to isotope dilution-mass spectrometry. Refer to KDIGO guidelines for clinical interpretation. In patients with unstable renal function, e.g. those with acute kidney injury, the eGFR may not accurately reflect actual GFR. Performed By: #### 2 4321-2 ####[facility] LABORATORYCLIA [id number] [place] [address] [place] Glucose [Mass/Vol] 118 mg/dL High 74-99 [facility] Comment on above: Order Comment: Speclorrie men Type: BLOOD SPECIMENOrdering Facility: [facility] Address: [address] [place] [address] Result Comment: The British Diabetes Association (ADA) provides guidance for cutoff values for fasting glucose and random glucose. The ADA defines fasting as no caloric intake for at least 8 hours. Fasting plasma glucose results between 100 to 125 mg/dL indicate increased risk for diabetes (prediabetes).Fasting plasma glucose results greater than or equal to 126 mg/dL meet the criteria for diagnosis of diabetes. In the absence of unequivocal hyperglycemia, results should be confirmed by repeat testing. In a patient with classic symptoms of hyperglycemia or hyperglycemic crisis, random plasma glucose results greater than or equal to 200 mg/dL meet the criteria for diagnosis of diabetes.Reference: Standards of Medical Care in Diabetes 2016, [employer] Diabetes Association. Diabetes Care. 2016.39(Suppl 1). Performed By: #### 2 4321-2 ####[facility] LABORATORYCLIA [id number] [place] [address] [place] Potassium [Moles/Vol] 4.1 mmol/L Normal 3.7-5.1 [facility] Comment on above: Order Comment: Kartik blood Type: BLOOD SPECIMENOrdering Facility: [facility] Address: [address] [place] [address] Performed By: #### 2 4321-2 ####[facility] LABORATORYCLIA [id number] [place] [address] [place] Sodium [Moles/Vol] 141 mmol/L Normal 136-144 [facility] Comment on above: Order Comment: Kartik caitie Type: BLOOD SPECIMENOrdering Facility: [facility] Address: [address] [place] [address] Performed By: #### 2 4321-2 ####[facility] LABORATORYCLIA [id number] [address] STATES [facility] Urea nitrogen [Mass/Vol] 16 mg/dL Normal 9-24 [facility] Comment on above: Order Comment: Speci men Type: BLOOD SPECIMENOrdering Facility: [facility] Address: [address] [place] [address] Performed By: #### 2 4321-2 ####[facility] LABORATORYCLIA [id number] [address] CASE MANAGEMon 06-13-2023 CASE MANAGEM Normal [facility] CBC W Auto Differential pane l (Bld)on 06-13-2023 Basophils (Bld) [#/Vol] 0.08 10*3/uL Normal <0.11 [facility] Comment on above: Order Comment: Speci men Type: BLOOD SPECIMENOrdering Facility: [facility] Address: [address] [place] [address] Performed By: #### 5 7021-8 ####[facility] LABORATORYCLIA [id number] [address] STATES [facility] Basophils/100 WBC (Bld) 0.7 % Normal [facility] Comment on above: Order Comment: Speci men Type: BLOOD SPECIMENOrdering Facility: [facility] Address: [address] [place] [address] Performed By: #### 5 7021-8 ####[facility] LABORATORYCLIA [id number] [address] Differential cell count method Nom (Bld) Auto Normal [facility] Comment on above: Order Comment: Speci men Type: BLOOD SPECIMENOrdering Facility: [facility] Address: [address] [place] [address] Performed By: #### 5 7021-8 ####[facility] LABORATORYCLIA [id number] [address] [place] Eosinophils (Bld) [#/Vol] 0.46 10*3/uL High <0.46 [facility] Comment on above: Order Comment: Speci men Type: BLOOD SPECIMENOrdering Facility: [facility] Address: [address] [place] [address] Performed By: #### 5 7021-8 ####[facility] LABORATORYCLIA [id number] [address] [place] Eosinophils/100 WBC (Bld) 3.8 % Normal [facility] Comment on above: Order Comment: Speci men Type: BLOOD SPECIMENOrdering Facility: [facility] Address: [address] [place] [address] Performed By: #### 5 7021-8 ####[facility] LABORATORYCLIA [id number] [address] [place] Erythrocyte distribution width (RBC) [Ratio] 14.6 % Normal 11.5-15.0 [facility] Comment on above: Order Comment: Speci men Type: BLOOD SPECIMENOrdering Facility: [facility] Address: [address] [place] [address] Performed By: #### 5 7021-8 ####[facility] LABORATORYCLIA [id number] [address] [place] Hematocrit (Bld) [Volume fraction] 39.2 % Normal 39.0-51.0 [facility] Comment on above: Order Comment: Speci men Type: BLOOD SPECIMENOrdering Facility: [facility] Address: [address] [place] [address] Performed By: #### 5 7021-8 ####[facility] LABORATORYCLIA [id number] [address] [place] Hemoglobin (Bld) [Mass/Vol] 12.9 g/dL Low 13.0-17.0 [facility] Comment on above: Order Comment: Speci men Type: BLOOD SPECIMENOrdering Facility: [facility] Address: [address] [place] [address] Performed By: #### 5 7021-8 ####[facility] LABORATORYCLIA [id number] [address] [place] Immature granulocytes (Bld) [#/Vol] 0.10 10*3/uL High <0.10 [facility] Comment on above: Order Comment: Speci men Type: BLOOD SPECIMENOrdering Facility: [facility] Address: [address] [place] [address] Performed By: #### 5 7021-8 ####[facility] LABORATORYCLIA [id number] [address] [place] Immature granulocytes/100 WBC (Bld) 0.8 % Normal [facility] Comment on above: Order Comment: Speci men Type: BLOOD SPECIMENOrdering Facility: [facility] Address: [address] [place] [address] Performed By: #### 5 7021-8 ####[facility] LABORATORYCLIA [id number] [address] [place] Lymphocytes (Bld) [#/Vol] 3.11 10*3/uL Normal 1.00-4.00 [facility] Comment on above: Order Comment: Speci men Type: BLOOD SPECIMENOrdering Facility: [facility] Address: [address] [place] [address] Performed By: #### 5 7021-8 ####[facility] LABORATORYCLIA [id number] [address] [place] [facility] Lymphocytes/100 WBC (Bld) 25.5 % Normal [facility] Comment on above: Order Comment: Speci men Type: BLOOD SPECIMENOrdering Facility: [facility] Address: [address] [place] [address] Performed By: #### 5 7021-8 ####[facility] LABORATORYCLIA [id number] [address] [place] MCH (RBC) [Entitic mass] 32.3 pg Normal 26.0-34.0 [facility] Comment on above: Order Comment: Speci men Type: BLOOD SPECIMENOrdering Facility: [facility] Address: [address] [place] [address] Performed By: #### 5 7021-8 ####[facility] LABORATORYCLIA [id number] [address] MCHC (RBC) [Mass/Vol] 32.9 g/dL Normal 30.5-36.0 [facility] Comment on above: Order Comment: Speci men Type: BLOOD SPECIMENOrdering Facility: [facility] Address: [address] [place] [address] Performed By: #### 5 7021-8 ####[facility] LABORATORYCLIA [id number] [address] [place] MCV (RBC) [Entitic vol] 98.2 fL Normal 80.0-100.0 [facility] Comment on above: Order Comment: Speci men Type: BLOOD SPECIMENOrdering Facility: [facility] Address: [address] [place] [address] Performed By: #### 5 7021-8 ####[facility] LABORATORYCLIA [id number] [address] [place] Monocytes (Bld) [#/Vol] 1.35 10*3/uL High <0.87 [facility] Comment on above: Order Comment: Speci men Type: BLOOD SPECIMENOrdering Facility: [facility] Address: [address] [place] [address] Performed By: #### 5 7021-8 ####[facility] LABORATORYCLIA [id number] [address] [place] Monocytes/100 WBC (Bld) 11.1 % Normal [facility] Comment on above: Order Comment: Speci men Type: BLOOD SPECIMENOrdering Facility: [facility] Address: [address] [place] [address] Performed By: #### 5 7021-8 ####[facility] LABORATORYCLIA [id number] [address] [place] Neutrophils (Bld) [#/Vol] 7.08 10*3/uL Normal 1.45-7.50 [facility] Comment on above: Order Comment: Speci men Type: BLOOD SPECIMENOrdering Facility: [facility] Address: [address] [place] [address] Performed By: #### 5 7021-8 ####[facility] LABORATORYCLIA [id number] [address] [place] Neutrophils/100 WBC (Bld) 58.1 % Normal [facility] Comment on above: Order Comment: Speci men Type: BLOOD SPECIMENOrdering Facility: [facility] Address: [address] [place] [address] Performed By: #### 5 7021-8 ####[facility] LABORATORYCLIA [id number] [address] [place] Nucleated RBC (Bld) [#/Vol] 0.04 10*3/uL High <0.01 [facility] Comment on above: Order Comment: Speci men Type: BLOOD SPECIMENOrdering Facility: [facility] Address: [address] [place] [address] Performed By: #### 5 7021-8 ####[facility] LABORATORYCLIA [id number] [address] [place] [facility] Nucleated RBC/100 WBC (Bld) [Ratio] 0.3 /100 WBC Normal [facility] Comment on above: Order Comment: Speci men Type: BLOOD SPECIMENOrdering Facility: [facility] Address: [address] [place] [address] Performed By: #### 5 7021-8 ####[facility] LABORATORYCLIA [id number] [address] [place] Platelet mean volume (Bld) [Entitic vol] 9.3 fL Normal 9.0-12.7 [facility] Comment on above: Order Comment: Speci men Type: BLOOD SPECIMENOrdering Facility: [facility] Address: [address] [place] [address] Performed By: #### 5 7021-8 ####[facility] LABORATORYCLIA [id number] [address] [place] Platelets (Bld) [#/Vol] 420 10*3/uL High 150-400 [facility] Comment on above: Order Comment: Speci men Type: BLOOD SPECIMENOrdering Facility: [facility] Address: [place] [id number] Performed By: #### 5 7021-8 ####[facility] LABORATORYCLIA [id number] [place] [address] [place] RBC (Bld) [#/Vol] 3.99 10*6/uL Low 4.20-6.00 [facility] Comment on above: Order Comment: Speci men Type: BLOOD SPECIMENOrdering Facility: [facility] Address: [place] [address] Performed By: #### 5 7021-8 ####[facility] LABORATORYCLIA [id number] [address] STATES OF [facility] WBC (Bld) [#/Vol] 12.18 10*3/uL High 3.70-11.00 [facility] Comment on above: Order Comment: Speci men Type: BLOOD SPECIMENOrdering Facility: [facility] Address: [place] [address] Performed By: #### 5 7021-8 ####[facility] LABORATORYCLIA [id number] [address] [place] CNDSon 06-13-2023 CNDS Normal [facility] CONSULT PROGon 06-13-2023 CONSULT PROG Normal [facility] CONSULT PROG Normal [facility] CONSULT PROG Normal [facility] NURSING PROGon 06-13-2023 NURSING PROG Normal [facility] Vancomycin random [Mass/Vol] on 06-13-2023 Vancomycin [Mass/Vol] 7.2 ug/mL Low 10.0-20.0 [facility] Comment on above: Order Comment: Speci men Type: BLOOD SPECIMENOrdering Facility: [facility] Address: [place] [address] Result Comment: Refe rence ranges and high/low indicator flags are provided as general guidelines only. The treating physician must determine appropriate target levels/dosing based on the specific clinical situation. Performed By: #### 4 091-5 ####[facility] LABORATORYCLIA [id number] [address] [place] ALLIED HEALTHon 06-12-2023 ALLIED HEALTH Normal [facility] ANES POSTPROC EVALon 023 ANES POSTPROC EVAL Normal [facility] ANES POSTPROC EVAL Normal [facility] ANES PRE-OPon 06-12-2023 ANES PRE-OP Normal [facility] BRIEF OP NOTon 06-12-2023 BRIEF OP NOT Normal [facility] Basic metabolic 2000 panelon 06-12-2023 Anion gap [Moles/Vol] 12 mmol/L Normal 9-18 [facility] Comment on above: Order Comment: Speci men Type: BLOOD SPECIMENOrdering Facility: [facility] Address: [address] [place] [address] Performed By: #### 2 4321-2 ####[facility] LABORATORYCLIA [id number] [place] [address] [place] Calcium [Mass/Vol] 8.9 mg/dL Normal 8.5-10.2 [facility] Comment on above: Order Comment: Speci men Type: BLOOD SPECIMENOrdering Facility: [facility] Address: [address] [place] [address] Performed By: #### 2 4321-2 ####[facility] LABORATORYCLIA [id number] [place] [address] [place] Chloride [Moles/Vol] 104 mmol/L Normal 97-105 [facility] Comment on above: Order Comment: Speci men Type: BLOOD SPECIMENOrdering Facility: [facility] Address: [address] [place] [address] Performed By: #### 2 4321-2 ####[facility] LABORATORYCLIA [id number] [place] [address] [place] CO2 [Moles/Vol] 24 mmol/L Normal 22-30 [facility] Comment on above: Order Comment: Speci men Type: BLOOD SPECIMENOrdering Facility: [facility] Address: [address] [place] [address] Performed By: #### 2 4321-2 ####[facility] LABORATORYCLIA [id number] [address] [place] Creatinine [Mass/Vol] 0.99 mg/dL Normal 0.73-1.22 [facility] Comment on above: Order Comment: Kartik blood Type: BLOOD SPECIMENOrdering Facility: [facility] Address: [address] [place] [address] Performed By: #### 2 4321-2 ####[facility]ITALIA [id number] [place] [id number] [facility] Creatinine and Glomerular filtration rate.predicted panel (S/P/Bld) 89 mL/min/1.73m??? Normal >=60 [facility] Comment on above: Order Comment: Kartik blood Type: BLOOD SPECIMENOrdering Facility: [facility] Address: [address] [place] [address] Result Comment: Mariaa mated Glomerular Filtration Rate (eGFR) is calculated using the 2020 CKD-EPI creatinine equation. This equation utilizes serum creatinine, sex, and age as parameters. The creatinine assay has traceable calibration to isotope dilution-mass spectrometry. Refer to KDIGO guidelines for clinical interpretation. In patients with unstable renal function, e.g. those with acute kidney injury, the eGFR may not accurately reflect actual GFR. Performed By: #### 2 4321-2 ####[facility] [id number] [address] [place] Glucose [Mass/Vol] 116 mg/dL High 74-99 [facility] Comment on above: Order Comment: Kartik blood Type: BLOOD SPECIMENOrdering Facility: [facility] Address: [address] [place] [address] Result Comment: The [place] Diabetes Association (ADA) provides guidance for cutoff values for fasting glucose and random glucose. The ADA defines fasting as no caloric intake for at least 8 hours. Fasting plasma glucose results between 100 to 125 mg/dL indicate increased risk for diabetes (prediabetes).Fasting plasma glucose results greater than or equal to 126 mg/dL meet the criteria for diagnosis of diabetes. In the absence of unequivocal hyperglycemia, results should be confirmed by repeat testing. In a patient with classic symptoms of hyperglycemia or hyperglycemic crisis, random plasma glucose results greater than or equal to 200 mg/dL meet the criteria for diagnosis of diabetes.Reference: Standards of Medical Care in Diabetes 2016, [employer] Diabetes Association. Diabetes Care. 2016.39(Suppl 1). Performed By: #### 2 4321-2 ####[facility] LABORATORYCLIA [id number] [address] Potassium [Moles/Vol] 3.8 mmol/L Normal 3.7-5.1 [facility] Comment on above: Order Comment: Speci men Type: BLOOD SPECIMENOrdering Facility: [facility] Address: [address] [place] [address] Performed By: #### 2 4321-2 ####[facility] LABORATORYCLIA [id number] [address] Sodium [Moles/Vol] 140 mmol/L Normal 136-144 [facility] Comment on above: Order Comment: Speci men Type: BLOOD SPECIMENOrdering Facility: [facility] Address: [address] [place] [address] Performed By: #### 2 4321-2 ####[facility] LABORATORYCLIA [id number] [address] STATES [facility] Urea nitrogen [Mass/Vol] 24 mg/dL Normal 9-24 [facility] Comment on above: Order Comment: Speci men Type: BLOOD SPECIMENOrdering Facility: [facility] Address: [address] [place] [address] Performed By: #### 2 4321-2 ####[facility] LABORATORYCLIA [id number] [address] CBC panel Auto (Bld)on 06-12 Erythrocyte distribution width (RBC) [Ratio] 14.4 % Normal 11.5-15.0 [facility] Comment on above: Order Comment: Speci men Type: BLOOD SPECIMENOrdering Facility: [facility] Address: [address] [place] [address] Performed By: #### 5 8410-2 ####[facility] LABORATORYCLIA [id number] [address] Hematocrit (Bld) [Volume fraction] 38.4 % Low 39.0-51.0 [facility] Comment on above: Order Comment: Speci men Type: BLOOD SPECIMENOrdering Facility: [facility] Address: [address] [place] [address] Performed By: #### 5 8410-2 ####[facility] LABORATORYCLIA [id number] [address] Hemoglobin (Bld) [Mass/Vol] 12.8 g/dL Low 13.0-17.0 [facility] Comment on above: Order Comment: Speci men Type: BLOOD SPECIMENOrdering Facility: [facility] Address: [address] [place] [address] Performed By: #### 5 8410-2 ####[facility] LABORATORYCLIA [id number] [address] STATES OF [facility] MCH (RBC) [Entitic mass] 33.0 pg Normal 26.0-34.0 [facility] Comment on above: Order Comment: Speci men Type: BLOOD SPECIMENOrdering Facility: [facility] Address: [address] [place] [address] Performed By: #### 5 8410-2 ####[facility] LABORATORYCLIA [id number] [address] STATES [facility] MCHC (RBC) [Mass/Vol] 33.3 g/dL Normal 30.5-36.0 [facility] Comment on above: Order Comment: Speci men Type: BLOOD SPECIMENOrdering Facility: [facility] Address: [address] [place] [address] Performed By: #### 5 8410-2 ####[facility] LABORATORYCLIA [id number] [address] MCV (RBC) [Entitic vol] 99.0 fL Normal 80.0-100.0 [facility] Comment on above: Order Comment: Speci men Type: BLOOD SPECIMENOrdering Facility: [facility] Address: [address] [place] [address] Performed By: #### 5 8410-2 ####[facility] LABORATORYCLIA [id number] [place] [address] [place] Nucleated RBC (Bld) [#/Vol] 0.02 10*3/uL High <0.01 [facility] Comment on above: Order Comment: Speci men Type: BLOOD SPECIMENOrdering Facility: [facility] Address: [address] [place] [address] Performed By: #### 5 8410-2 ####[facility] LABORATORYCLIA [id number] [address] [place] Platelet mean volume (Bld) [Entitic vol] 9.7 fL Normal 9.0-12.7 [facility] Comment on above: Order Comment: Speci men Type: BLOOD SPECIMENOrdering Facility: [facility] Address: [address] [place] [address] Performed By: #### 5 8410-2 ####[facility] LABORATORYCLIA [id number] [address] [place] Platelets (Bld) [#/Vol] 415 10*3/uL High 150-400 [facility] Comment on above: Order Comment: Speci men Type: BLOOD SPECIMENOrdering Facility: [facility] Address: [address] [place] [address] Performed By: #### 5 8410-2 ####[facility] LABORATORYCLIA [id number] [place] [address] [place] RBC (Bld) [#/Vol] 3.88 10*6/uL Low 4.20-6.00 [facility] Comment on above: Order Comment: Speci men Type: BLOOD SPECIMENOrdering Facility: [facility] Address: [address] [place] [address] Performed By: #### 5 8410-2 ####[facility] LABORATORYCLIA [id number] [address] [place] WBC (Bld) [#/Vol] 26.55 10*3/uL High 3.70-11.00 [facility] Comment on above: Order Comment: Speci men Type: BLOOD SPECIMENOrdering Facility: [facility] Address: [address] [place] [address] Performed By: #### 5 8410-2 ####[facility] LABORATORYCLIA [id number] [address] STATES OF [facility] NURSING PROGon 06-12-2023 NURSING PROG Normal [facility] NURSING PROG Normal [facility] OPERATIVE NOon 06-12-2023 OPERATIVE NO Normal [facility] ALLIED HEALTHon 06-11-2023 ALLIED HEALTH Normal [facility] Bacteria Bld Culton 06-11-20 Bacteria identified Cx Nom (Bld) CULTURE, BLOOD: No growth 5 days Normal [facility] Comment on above: Performed By: #### 6 00-7 ####[facility] LABORATORYCLIA [id number] [place] [address] [place] Basic metabolic 2000 panelon 06-11-2023 Anion gap [Moles/Vol] 9 mmol/L Normal 9-18 [facility] Comment on above: Order Comment: Speci men Type: BLOOD SPECIMENOrdering Facility: [facility] Address: [address] [place] [address] Performed By: #### 2 4321-2 ####[facility] LABORATORYCLIA [id number] [place] [address] [place] Calcium [Mass/Vol] 8.8 mg/dL Normal 8.5-10.2 [facility] Comment on above: Order Comment: Speci men Type: BLOOD SPECIMENOrdering Facility: [facility] Address: [address] [place] [address] Performed By: #### 2 4321-2 ####[facility] LABORATORYCLIA [id number] [place] [address] [place] Chloride [Moles/Vol] 105 mmol/L Normal 97-105 [facility] Comment on above: Order Comment: Speci men Type: BLOOD SPECIMENOrdering Facility: [facility] Address: [address] [place] [address] Performed By: #### 2 4321-2 ####[facility] LABORATORYCLIA [id number] [address] [place] CO2 [Moles/Vol] 28 mmol/L Normal 22-30 [facility] Comment on above: Order Comment: Speci men Type: BLOOD SPECIMENOrdering Facility: [facility] Address: [address] [place] [address] Performed By: #### 2 4321-2 ####[facility] LABORATORYCLIA [id number] [address] [place] Creatinine [Mass/Vol] 0.99 mg/dL Normal 0.73-1.22 [facility] Comment on above: Order Comment: Speci men Type: BLOOD SPECIMENOrdering Facility: [facility] Address: [address] [place] [address] Performed By: #### 2 4321-2 ####[facility] LABORATORYCLIA [id number] [address] Creatinine and Glomerular filtration rate.predicted panel (S/P/Bld) 89 mL/min/1.73m??? Normal >=60 [facility] Comment on above: Order Comment: Speci men Type: BLOOD SPECIMENOrdering Facility: [facility] Address: [address] [place] [address] Result Comment: Mariaa mated Glomerular Filtration Rate (eGFR) is calculated using the 2020 CKD-EPI creatinine equation. This equation utilizes serum creatinine, sex, and age as parameters. The creatinine assay has traceable calibration to isotope dilution-mass spectrometry. Refer to KDIGO guidelines for clinical interpretation. In patients with unstable renal function, e.g. those with acute kidney injury, the eGFR may not accurately reflect actual GFR. Performed By: #### 2 4321-2 ####[facility] LABORATORYCLIA [id number] [address] STATES OF [facility] Glucose [Mass/Vol] 164 mg/dL High 74-99 [facility] Comment on above: Order Comment: Speci men Type: BLOOD SPECIMENOrdering Facility: [facility] Address: [address] [place] [address] Result Comment: The [place] Diabetes Association (ADA) provides guidance for cutoff values for fasting glucose and random glucose. The ADA defines fasting as no caloric intake for at least 8 hours. Fasting plasma glucose results between 100 to 125 mg/dL indicate increased risk for diabetes (prediabetes).Fasting plasma glucose results greater than or equal to 126 mg/dL meet the criteria for diagnosis of diabetes. In the absence of unequivocal hyperglycemia, results should be confirmed by repeat testing. In a patient with classic symptoms of hyperglycemia or hyperglycemic crisis, random plasma glucose results greater than or equal to 200 mg/dL meet the criteria for diagnosis of diabetes.Reference: Standards of Medical Care in Diabetes 2016, [employer] Diabetes Association. Diabetes Care. 2016.39(Suppl 1). Performed By: #### 2 4321-2 ####[facility] LABORATORYCLIA [id number] [address] [place] Potassium [Moles/Vol] 4.3 mmol/L Normal 3.7-5.1 [facility] Comment on above: Order Comment: Speci men Type: BLOOD SPECIMENOrdering Facility: [facility] Address: [address] [place] [address] Performed By: #### 2 4321-2 ####[facility] LABORATORYCLIA [id number] [place] [address] [place] Sodium [Moles/Vol] 142 mmol/L Normal 136-144 [facility] Comment on above: Order Comment: Speci men Type: BLOOD SPECIMENOrdering Facility: [facility] Address: [address] [place] [address] Performed By: #### 2 4321-2 ####[facility] LABORATORYCLIA [id number] [address] [place] Urea nitrogen [Mass/Vol] 19 mg/dL Normal 9-24 [facility] Comment on above: Order Comment: Speci men Type: BLOOD SPECIMENOrdering Facility: [facility] Address: [address] [place] [address] Performed By: #### 2 4321-2 ####[facility] LABORATORYCLIA [id number] [place] [address] [place] CBC W Auto Differential pane l (Bld)on 06-11-2023 Basophils (Bld) [#/Vol] 10*3/uL Normal <0.11 [facility] Comment on above: Order Comment: Speci men Type: BLOOD SPECIMENOrdering Facility: [facility] Address: [address] [place] [address] Performed By: #### 5 7021-8 ####[facility]ATORYCLIA [id number] [address] [place] Basophils/100 WBC (Bld) 0.0 % Normal [facility] Comment on above: Order Comment: Speci men Type: BLOOD SPECIMENOrdering Facility: [facility] Address: [address] [place] [address] Performed By: #### 5 7021-8 ####[facility]ATORYCLIA [id number] [address] Differential cell count method Nom (Bld) Auto Normal [facility] Comment on above: Order Comment: Speci men Type: BLOOD SPECIMENOrdering Facility: [facility] Address: [address] [place] [address] Performed By: #### 5 7021-8 ####[facility]ORATORYCLIA [id number] [place] [address] [place] Eosinophils (Bld) [#/Vol] 10*3/uL Normal <0.46 [facility] Comment on above: Order Comment: Speci men Type: BLOOD SPECIMENOrdering Facility: [facility] Address: [address] [place] [address] Performed By: #### 5 7021-8 ####[facility]ATORYCLIA [id number] [address] [place] Eosinophils/100 WBC (Bld) 0.0 % Normal [facility] Comment on above: Order Comment: Speci men Type: BLOOD SPECIMENOrdering Facility: [facility] Address: [address] [place] [address] Performed By: #### 5 7021-8 ####[facility]ATORYCLIA [id number] [address] [place] Erythrocyte distribution width (RBC) [Ratio] 13.7 % Normal 11.5-15.0 [facility] Comment on above: Order Comment: Speci men Type: BLOOD SPECIMENOrdering Facility: [facility] Address: [address] [place] [address] Performed By: #### 5 7021-8 ####[facility] LABORATORYCLIA [id number] [address] STATES OF [facility] Hematocrit (Bld) [Volume fraction] 36.8 % Low 39.0-51.0 [facility] Comment on above: Order Comment: Speci men Type: BLOOD SPECIMENOrdering Facility: [facility] Address: [address] [place] [address] Performed By: #### 5 7021-8 ####[facility] LABORATORYCLIA [id number] [address] [place] Hemoglobin (Bld) [Mass/Vol] 12.3 g/dL Low 13.0-17.0 [facility] Comment on above: Order Comment: Speci men Type: BLOOD SPECIMENOrdering Facility: [facility] Address: [address] [place] [address] Performed By: #### 5 7021-8 ####[facility] LABORATORYCLIA [id number] [address] [place] Immature granulocytes (Bld) [#/Vol] 0.05 10*3/uL Normal <0.10 [facility] Comment on above: Order Comment: Speci men Type: BLOOD SPECIMENOrdering Facility: [facility] Address: [address] [place] [address] Performed By: #### 5 7021-8 ####[facility] LABORATORYCLIA [id number] [address] Immature granulocytes/100 WBC (Bld) 0.3 % Normal [facility] Comment on above: Order Comment: Speci men Type: BLOOD SPECIMENOrdering Facility: [facility] Address: [address] [place] [address] Performed By: #### 5 7021-8 ####[facility] LABORATORYCLIA [id number] [address] OF [facility] Lymphocytes (Bld) [#/Vol] 0.75 10*3/uL Low 1.00-4.00 [facility] Comment on above: Order Comment: Speci men Type: BLOOD SPECIMENOrdering Facility: [facility] Address: [address] [place] [address] Performed By: #### 5 7021-8 ####[facility] LABORATORYCLIA [id number] [address] Lymphocytes/100 WBC (Bld) 5.2 % Normal [facility] Comment on above: Order Comment: Speci men Type: BLOOD SPECIMENOrdering Facility: [facility] Address: [address] [place] [address] Performed By: #### 5 7021-8 ####[facility] LABORATORYCLIA [id number] [address] [place] MCH (RBC) [Entitic mass] 32.6 pg Normal 26.0-34.0 [facility] Comment on above: Order Comment: Speci men Type: BLOOD SPECIMENOrdering Facility: [facility] Address: [address] [place] [address] Performed By: #### 5 7021-8 ####[facility] LABORATORYCLIA [id number] [address] [place] MCHC (RBC) [Mass/Vol] 33.4 g/dL Normal 30.5-36.0 [facility] Comment on above: Order Comment: Speci men Type: BLOOD SPECIMENOrdering Facility: [facility] Address: [address] [place] [address] Performed By: #### 5 7021-8 ####[facility] LABORATORYCLIA [id number] [address] STATES [facility] MCV (RBC) [Entitic vol] 97.6 fL Normal 80.0-100.0 [facility] Comment on above: Order Comment: Speci men Type: BLOOD SPECIMENOrdering Facility: [facility] Address: [address] [place] [address] Performed By: #### 5 7021-8 ####[facility]ORATORYCLIA [id number] [place] [address] [place] Monocytes (Bld) [#/Vol] 0.67 10*3/uL Normal <0.87 [facility] Comment on above: Order Comment: Speci men Type: BLOOD SPECIMENOrdering Facility: [facility] Address: [address] [place] [address] Performed By: #### 5 7021-8 ####[facility]ORATORYCLIA [id number] [address] [place] Monocytes/100 WBC (Bld) 4.7 % Normal [facility] Comment on above: Order Comment: Speci men Type: BLOOD SPECIMENOrdering Facility: [facility] Address: [address] [place] [address] Performed By: #### 5 7021-8 ####[facility]ORATORYCLIA [id number] [address] [place] Neutrophils (Bld) [#/Vol] 12.88 10*3/uL High 1.45-7.50 [facility] Comment on above: Order Comment: Speci men Type: BLOOD SPECIMENOrdering Facility: [facility] Address: [address] [place] [address] Performed By: #### 5 7021-8 ####[facility] LABORATORYCLIA [id number] [address] [place] Neutrophils/100 WBC (Bld) 89.8 % Normal [facility] Comment on above: Order Comment: Speci men Type: BLOOD SPECIMENOrdering Facility: [facility] Address: [address] [place] [address] Performed By: #### 5 7021-8 ####[facility]ORATORYCLIA [id number] [place] [address] [place] Nucleated RBC (Bld) [#/Vol] 10*3/uL Normal <0.01 [facility] Comment on above: Order Comment: Speci men Type: BLOOD SPECIMENOrdering Facility: [facility] Address: [address] [place] [address] Performed By: #### 5 7021-8 ####[facility] LABORATORYCLIA [id number] [address] [place] Nucleated RBC/100 WBC (Bld) [Ratio] 0.0 /100 WBC Normal [facility] Comment on above: Order Comment: Speci men Type: BLOOD SPECIMENOrdering Facility: [facility] Address: [address] [place] [address] Performed By: #### 5 7021-8 ####[facility] LABORATORYCLIA [id number] [place] [address] [place] Platelet mean volume (Bld) [Entitic vol] 9.4 fL Normal 9.0-12.7 [facility] Comment on above: Order Comment: Speci men Type: BLOOD SPECIMENOrdering Facility: [facility] Address: [address] [place] [address] Performed By: #### 5 7021-8 ####[facility] LABORATORYCLIA [id number] [address] [place] Platelets (Bld) [#/Vol] 414 10*3/uL High 150-400 [facility] Comment on above: Order Comment: Speci men Type: BLOOD SPECIMENOrdering Facility: [facility] Address: [address] [place] [address] Performed By: #### 5 7021-8 ####[facility] LABORATORYCLIA [id number] [place] [address] [place] RBC (Bld) [#/Vol] 3.77 10*6/uL Low 4.20-6.00 [facility] Comment on above: Order Comment: Speci men Type: BLOOD SPECIMENOrdering Facility: [facility] Address: [address] [place] [address] Performed By: #### 5 7021-8 ####[facility] LABORATORYCLIA [id number] [place] [address] [place] WBC (Bld) [#/Vol] 14.35 10*3/uL High 3.70-11.00 [facility] Comment on above: Order Comment: Speci men Type: BLOOD SPECIMENOrdering Facility: [facility] Address: [address] [place] [address] Performed By: #### 5 7021-8 ####[facility] LABORATORYCLIA [id number] [address] [place] CONSULTon 06-11-2023 CONSULT Normal [facility] CONSULT Normal [facility] CONSULT Normal [facility] CONSULT PROGon 06-11-2023 CONSULT PROG Normal [facility] CONSULT PROG Normal [facility] Gas and Carbon monoxide pane l (BldV)on 06-11-2023 Base excess Calc (BldV) [Moles/Vol] 2 mmol/L Normal 0-2 [facility] Comment on above: Order Comment: Speci men Type: VENOUS BLOOD SPECIMENOrdering Facility: [facility] Address: [address] [place] [address] Performed By: #### 2 4344-4 ####[facility] LABORATORYCLIA [id number] [address] [place] Body temperature 97.7 [degF] Normal [facility] Comment on above: Order Comment: Speci men Type: VENOUS BLOOD SPECIMENOrdering Facility: [facility] Address: [address] [place] [address] Performed By: #### 2 4344-4 ####[facility] LABORATORYCLIA [id number] [place] [address] [place] Calcium.ionized (BldV) [Mass/Vol] 1.16 mmol/L Normal 1.08-1.30 [facility] Comment on above: Order Comment: Speci men Type: VENOUS BLOOD SPECIMENOrdering Facility: [facility] Address: [address] [place] [address] Performed By: #### 2 4344-4 ####[facility] LABORATORYCLIA [id number] [address] [place] Calcium.ionized adjusted to pH 7.4 (BldA) [Moles/Vol] 1.13 mmol/L Normal 1.08-1.30 [facility] Comment on above: Order Comment: Speci men Type: VENOUS BLOOD SPECIMENOrdering Facility: [facility] Address: [address] [place] [address] Performed By: #### 2 4344-4 ####[facility] LABORATORYCLIA [id number] [address] [place] Carboxyhemoglobin (BldV) [Mass fraction] 1.6 % Normal 0.0-2.0 [facility] Comment on above: Order Comment: Speci men Type: VENOUS BLOOD SPECIMENOrdering Facility: [facility] Address: [address] [place] [address] Result Comment: Carb oxyhemoglobin Reference Range for Smokers: 2.0-8.0% Performed By: #### 2 4344-4 ####[facility]ORATORYCLIA [id number] [place] [address] [place] Chloride [Moles/Vol] 108 mmol/L Normal 102-109 [facility] Comment on above: Order Comment: Speci men Type: VENOUS BLOOD SPECIMENOrdering Facility: [facility] Address: [address] [place] [address] Performed By: #### 2 4344-4 ####[facility]ORATORYCLIA [id number] [address] [place] CO2 (BldV) [Partial pressure] 52 mm[Hg] Normal 42-55 [facility] Comment on above: Order Comment: Speci men Type: VENOUS BLOOD SPECIMENOrdering Facility: [facility] Address: [address] [place] [address] Performed By: #### 2 4344-4 ####[facility]ORATORYCLIA [id number] [address] [place] CO2 adjusted to patient's actual temperature (BldV) [Partial pressure] 51 mmHg Normal 42-55 [facility] Comment on above: Order Comment: Speci men Type: VENOUS BLOOD SPECIMENOrdering Facility: [facility] Address: [address] [place] [address] Performed By: #### 2 4344-4 ####[facility]ORATORYCLIA [id number] [place] [id number] [place] Glucose [Mass/Vol] 155 mg/dL High 60-105 [facility] Comment on above: Order Comment: Speci men Type: VENOUS BLOOD SPECIMENOrdering Facility: [facility] Address: [address] [place] [address] Performed By: #### 2 4344-4 ####[facility]ORATORYCLIA [id number] [place] [address] [place] HCO3 (Bld) [Moles/Vol] 28 mmol/L Normal 24-28 [facility] Comment on above: Order Comment: Speci men Type: VENOUS BLOOD SPECIMENOrdering Facility: [facility] Address: [address] [place] [address] Performed By: #### 2 4344-4 ####[facility] LABORATORYCLIA [id number] [place] [address] [place] Hematocrit (Bld) [Volume fraction] 38.0 % Low 39.0-51.0 [facility] Comment on above: Order Comment: Speci men Type: VENOUS BLOOD SPECIMENOrdering Facility: [facility] Address: [address] [place] [address] Performed By: #### 2 4344-4 ####[facility] LABORATORYCLIA [id number] [place] [id number] [place] Hemoglobin (Bld) [Mass/Vol] 12.4 g/dL Low 13.0-17.0 [facility] Comment on above: Order Comment: Speci men Type: VENOUS BLOOD SPECIMENOrdering Facility: [facility] Address: [address] [place] [address] Performed By: #### 2 4344-4 ####[facility]ORATORYCLIA [id number] [place] [address] [place] Lactate [Moles/Vol] 2.5 mmol/L High 0.5-2.2 [facility] Comment on above: Order Comment: Speci men Type: VENOUS BLOOD SPECIMENOrdering Facility: [facility] Address: [address] [place] [address] Performed By: #### 2 4344-4 ####[facility]ATORYCLIA [id number] [address] OF [facility] Methemoglobin (Bld) [Mass fraction] 1.0 % Normal 0.0-1.5 [facility] Comment on above: Order Comment: Speci men Type: VENOUS BLOOD SPECIMENOrdering Facility: [facility] Address: [address] [place] [address] Performed By: #### 2 4344-4 ####[facility]ATORYCLIA [id number] [address] O2 THERAPY RA=Room Air Normal [facility] Comment on above: Order Comment: Speci men Type: VENOUS BLOOD SPECIMENOrdering Facility: [facility] Address: [address] [place] [address] Performed By: #### 2 4344-4 ####[facility]ORYCLIA [id number] [address] [place] Oxygen (BldV) [Partial pressure] 82 mm[Hg] High 35-45 [facility] Comment on above: Order Comment: Speci men Type: VENOUS BLOOD SPECIMENOrdering Facility: [facility] Address: [address] [place] [address] Performed By: #### 2 4344-4 ####[facility]ORATORYCLIA [id number] [address] Oxygen adjusted to patient's actual temperature (BldV) [Partial pressure] 79 mmHg High 35-45 [facility] Comment on above: Order Comment: Speci men Type: VENOUS BLOOD SPECIMENOrdering Facility: [facility] Address: [address] [place] [address] Performed By: #### 2 4344-4 ####[facility]ORYCLIA [id number] [address] [place] Oxygen saturation in Venous blood 96 % High 60-85 [facility] Comment on above: Order Comment: Speci men Type: VENOUS BLOOD SPECIMENOrdering Facility: [facility] Address: [address] [place] [address] Performed By: #### 2 4344-4 ####[facility]ORATORYCLIA [id number] [address] OF [facility] Oxyhemoglobin (BldV) [Mass fraction] 93 % High 60-85 [facility] Comment on above: Order Comment: Speci men Type: VENOUS BLOOD SPECIMENOrdering Facility: [facility] Address: [address] [place] [address] Performed By: #### 2 4344-4 ####[facility]ORATORYCLIA [id number] [address] [place] pH (BldV) 7.35 [pH] Normal 7.32-7.42 [facility] Comment on above: Order Comment: Speci men Type: VENOUS BLOOD SPECIMENOrdering Facility: [facility] Address: [address] [place] [address] Performed By: #### 2 4344-4 ####[facility] LABORATORYCLIA [id number] [address] STATES [facility] pH adjusted to patient's actual temperature (BldV) 7.36 Normal 7.32-7.42 [facility] Comment on above: Order Comment: Speci men Type: VENOUS BLOOD SPECIMENOrdering Facility: [facility] Address: [address] [place] [address] Performed By: #### 2 4344-4 ####[facility]ORATORYCLIA [id number] [address] [place] Potassium [Moles/Vol] 4.0 mmol/L Normal 3.5-5.0 [facility] Comment on above: Order Comment: Speci men Type: VENOUS BLOOD SPECIMENOrdering Facility: [facility] Address: [address] [place] [address] Performed By: #### 2 4344-4 ####[facility]ORATORYCLIA [id number] [address] [place] Sodium [Moles/Vol] 139 mmol/L Normal 136-144 [facility] Comment on above: Order Comment: Speci men Type: VENOUS BLOOD SPECIMENOrdering Facility: [facility] Address: [address] [place] [address] Performed By: #### 2 4344-4 ####[facility] LABORATORYCLIA [id number] [place] [address] [place] Lactate (Bld) [Moles/Vol]on 06-11-2023 Lactate [Moles/Vol] 1.6 mmol/L Normal 0.5-2.2 [facility] Comment on above: Order Comment: Speci men Type: BLOOD SPECIMENOrdering Facility: [facility] Address: [address] [place] [address] Performed By: #### 3 2693-4 ####[facility] LABORATORYCLIA [id number] [place] [address] [place] ANES PRE-OPon 06-10-2023 ANES PRE-OP Normal [facility] BRIEF OP NOTon 06-10-2023 BRIEF OP NOT Normal [facility] Basic metabolic 2000 panelon 06-10-2023 Anion gap [Moles/Vol] 8 mmol/L Low 9-18 [facility] Comment on above: Order Comment: Speci men Type: BLOOD SPECIMENOrdering Facility: [facility] Address: [address] [place] [address] Performed By: #### 2 4321-2 ####[facility] LABORATORYCLIA [id number] [place] [address] [place] Calcium [Mass/Vol] 8.5 mg/dL Normal 8.5-10.2 [facility] Comment on above: Order Comment: Speci men Type: BLOOD SPECIMENOrdering Facility: [facility] Address: [address] [place] [address] Performed By: #### 2 4321-2 ####[facility] LABORATORYCLIA [id number] [place] [address] [place] Chloride [Moles/Vol] 101 mmol/L Normal 97-105 [facility] Comment on above: Order Comment: Speci men Type: BLOOD SPECIMENOrdering Facility: [facility] Address: [address] [place] [address] Performed By: #### 2 4321-2 ####[facility] LABORATORYCLIA [id number] [address] [place] CO2 [Moles/Vol] 30 mmol/L Normal 22-30 [facility] Comment on above: Order Comment: Speci men Type: BLOOD SPECIMENOrdering Facility: [facility] Address: [address] [place] [address] Performed By: #### 2 4321-2 ####[facility] LABORATORYCLIA [id number] [address] STATES OF [facility] Creatinine [Mass/Vol] 0.93 mg/dL Normal 0.73-1.22 [facility] Comment on above: Order Comment: Speci men Type: BLOOD SPECIMENOrdering Facility: [facility] Address: [address] [place] [address] Performed By: #### 2 4321-2 ####[facility] LABORATORYCLIA [id number] [address] Creatinine and Glomerular filtration rate.predicted panel (S/P/Bld) 96 mL/min/1.73m??? Normal >=60 [facility] Comment on above: Order Comment: Speci men Type: BLOOD SPECIMENOrdering Facility: [facility] Address: [address] [place] [address] Result Comment: Mariaa mated Glomerular Filtration Rate (eGFR) is calculated using the 2020 CKD-EPI creatinine equation. This equation utilizes serum creatinine, sex, and age as parameters. The creatinine assay has traceable calibration to isotope dilution-mass spectrometry. Refer to KDIGO guidelines for clinical interpretation. In patients with unstable renal function, e.g. those with acute kidney injury, the eGFR may not accurately reflect actual GFR. Performed By: #### 2 4321-2 ####[facility] LABORATORYCLIA [id number] [address] [place] Glucose [Mass/Vol] 121 mg/dL High 74-99 [facility] Comment on above: Order Comment: Speci men Type: BLOOD SPECIMENOrdering Facility: [facility] Address: [address] [place] [address] Result Comment: The British Diabetes Association (ADA) provides guidance for cutoff values for fasting glucose and random glucose. The ADA defines fasting as no caloric intake for at least 8 hours. Fasting plasma glucose results between 100 to 125 mg/dL indicate increased risk for diabetes (prediabetes).Fasting plasma glucose results greater than or equal to 126 mg/dL meet the criteria for diagnosis of diabetes. In the absence of unequivocal hyperglycemia, results should be confirmed by repeat testing. In a patient with classic symptoms of hyperglycemia or hyperglycemic crisis, random plasma glucose results greater than or equal to 200 mg/dL meet the criteria for diagnosis of diabetes.Reference: Standards of Medical Care in Diabetes 2016, British Diabetes Association. Diabetes Care. 2016.39(Suppl 1). Performed By: #### 2 4321-2 ####[facility] LABORATORYCLIA [id number] [place] [address] [place] Potassium [Moles/Vol] 3.7 mmol/L Normal 3.7-5.1 [facility] Comment on above: Order Comment: Speci [facility] Type: BLOOD SPECIMENOrdering Facility: [facility] Address: [address] [place] [address] Performed By: #### 2 4321-2 ####[facility] LABORATORYCLIA [id number] [place] [address] [place] Sodium [Moles/Vol] 139 mmol/L Normal 136-144 [facility] Comment on above: Order Comment: Speci men Type: BLOOD SPECIMENOrdering Facility: [facility] Address: [address] [place] [address] Performed By: #### 2 4321-2 ####[facility] LABORATORYCLIA [id number] [place] [address] [place] Urea nitrogen [Mass/Vol] 12 mg/dL Normal 9-24 [facility] Comment on above: Order Comment: Speci men Type: BLOOD SPECIMENOrdering Facility: [facility] Address: [address] [place] [address] Performed By: #### 2 1-2 ####[facility]ATORYCLIA [id number] [place] [address] [place] CBC W Auto Differential pane l (Bld)on 06-10-2023 Basophils (Bld) [#/Vol] 0.04 10*3/uL Normal <0.11 [facility] Comment on above: Order Comment: Speci men Type: BLOOD SPECIMENOrdering Facility: [facility] Address: [address] [place] [address] Performed By: #### 5 7021-8 ####[facility]ORATORYCLIA [id number] [address] [place] Basophils/100 WBC (Bld) 0.5 % Normal [facility] Comment on above: Order Comment: Speci men Type: BLOOD SPECIMENOrdering Facility: [facility] Address: [address] [place] [address] Performed By: #### 5 7021-8 ####[facility] LABORATORYCLIA [id number] [address] Differential cell count method Nom (Bld) Auto Normal [facility] Comment on above: Order Comment: Speci men Type: BLOOD SPECIMENOrdering Facility: [facility] Address: [address] [place] [address] Performed By: #### 5 7021-8 ####[facility]ATORYCLIA [id number] [address] [place] Eosinophils (Bld) [#/Vol] 0.64 10*3/uL High <0.46 [facility] Comment on above: Order Comment: Speci men Type: BLOOD SPECIMENOrdering Facility: [facility] Address: [address] [place] [address] Performed By: #### 5 7021-8 ####[facility]ORATORYCLIA [id number] [address] Eosinophils/100 WBC (Bld) 7.4 % Normal [facility] Comment on above: Order Comment: Speci men Type: BLOOD SPECIMENOrdering Facility: [facility] Address: [address] [place], [place] [address] Performed By: #### 5 7021-8 ####[facility] LABORATORYCLIA [id number] [address] [place] Erythrocyte distribution width (RBC) [Ratio] 13.9 % Normal 11.5-15.0 [facility] Comment on above: Order Comment: Speci men Type: BLOOD SPECIMENOrdering Facility: [facility] Address: [address] [place] [address] Performed By: #### 5 7021-8 ####[facility] LABORATORYCLIA [id number] [address] [place] Hematocrit (Bld) [Volume fraction] 36.8 % Low 39.0-51.0 [facility] Comment on above: Order Comment: Speci men Type: BLOOD SPECIMENOrdering Facility: [facility] Address: [address] [place] [address] Performed By: #### 5 7021-8 ####[facility] LABORATORYCLIA [id number] [address] [place] Hemoglobin (Bld) [Mass/Vol] 12.3 g/dL Low 13.0-17.0 [facility] Comment on above: Order Comment: Speci men Type: BLOOD SPECIMENOrdering Facility: [facility] Address: [address] [place] [address] Performed By: #### 5 7021-8 ####[facility] LABORATORYCLIA [id number] [address] [place] Immature granulocytes (Bld) [#/Vol] 0.03 10*3/uL Normal <0.10 [facility] Comment on above: Order Comment: Speci men Type: BLOOD SPECIMENOrdering Facility: [facility] Address: [address] [place] [address] Performed By: #### 5 7021-8 ####[facility] LABORATORYCLIA [id number] [address] [place] Immature granulocytes/100 WBC (Bld) 0.3 % Normal [facility] Comment on above: Order Comment: Speci men Type: BLOOD SPECIMENOrdering Facility: [facility] Address: [address] [place] [address] Performed By: #### 5 7021-8 ####[facility] LABORATORYCLIA [id number] [address] Lymphocytes (Bld) [#/Vol] 2.57 10*3/uL Normal 1.00-4.00 [facility] Comment on above: Order Comment: Speci men Type: BLOOD SPECIMENOrdering Facility: [facility] Address: [address] [place] [address] Performed By: #### 5 7021-8 ####[facility] LABORATORYCLIA [id number] [address] Lymphocytes/100 WBC (Bld) 29.8 % Normal [facility] Comment on above: Order Comment: Speci men Type: BLOOD SPECIMENOrdering Facility: [facility] Address: [address] [place] [address] Performed By: #### 5 7021-8 ####[facility] LABORATORYCLIA [id number] [address] [place] MCH (RBC) [Entitic mass] 32.7 pg Normal 26.0-34.0 [facility] Comment on above: Order Comment: Speci men Type: BLOOD SPECIMENOrdering Facility: [facility] Address: [address] [place] [address] Performed By: #### 5 7021-8 ####[facility] LABORATORYCLIA [id number] [address] [place] MCHC (RBC) [Mass/Vol] 33.4 g/dL Normal 30.5-36.0 [facility] Comment on above: Order Comment: Speci men Type: BLOOD SPECIMENOrdering Facility: [facility] Address: [address] [place] [address] Performed By: #### 5 7021-8 ####[facility] LABORATORYCLIA [id number] [address] STATES [facility] MCV (RBC) [Entitic vol] 97.9 fL Normal 80.0-100.0 [facility] Comment on above: Order Comment: Speci men Type: BLOOD SPECIMENOrdering Facility: [facility] Address: [address] [place] [address] Performed By: #### 5 7021-8 ####[facility]ORATORYCLIA [id number] [place] [address] [place] Monocytes (Bld) [#/Vol] 0.98 10*3/uL High <0.87 [facility] Comment on above: Order Comment: Speci men Type: BLOOD SPECIMENOrdering Facility: [facility] Address: [address] [place] [address] Performed By: #### 5 7021-8 ####[facility] LABORATORYCLIA [id number] [address] [place] Monocytes/100 WBC (Bld) 11.4 % Normal [facility] Comment on above: Order Comment: Speci men Type: BLOOD SPECIMENOrdering Facility: [facility] Address: [address] [place] [address] Performed By: #### 5 7021-8 ####[facility] LABORATORYCLIA [id number] [address] [place] Neutrophils (Bld) [#/Vol] 4.35 10*3/uL Normal 1.45-7.50 [facility] Comment on above: Order Comment: Speci men Type: BLOOD SPECIMENOrdering Facility: [facility] Address: [address] [place] [address] Performed By: #### 5 7021-8 ####[facility]ORATORYCLIA [id number] [address] [place] Neutrophils/100 WBC (Bld) 50.6 % Normal [facility] Comment on above: Order Comment: Speci men Type: BLOOD SPECIMENOrdering Facility: [facility] Address: [address] [place] [address] Performed By: #### 5 7021-8 ####[facility]ORATORYCLIA [id number] [address] [place] Nucleated RBC (Bld) [#/Vol] 0.02 10*3/uL High <0.01 [facility] Comment on above: Order Comment: Speci men Type: BLOOD SPECIMENOrdering Facility: [facility] Address: [address] [place] [address] Performed By: #### 5 7021-8 ####[facility] LABORATORYCLIA [id number] [place] [address] [place] Nucleated RBC/100 WBC (Bld) [Ratio] 0.2 /100 WBC Normal [facility] Comment on above: Order Comment: Speci men Type: BLOOD SPECIMENOrdering Facility: [facility] Address: [address] [place] [address] Performed By: #### 5 7021-8 ####[facility] LABORATORYCLIA [id number] [place] [address] [place] Platelet mean volume (Bld) [Entitic vol] 9.2 fL Normal 9.0-12.7 [facility] Comment on above: Order Comment: Speci men Type: BLOOD SPECIMENOrdering Facility: [facility] Address: [address] [place] [address] Performed By: #### 5 7021-8 ####[facility] LABORATORYCLIA [id number] [place] [address] [place] Platelets (Bld) [#/Vol] 387 10*3/uL Normal 150-400 [facility] Comment on above: Order Comment: Speci men Type: BLOOD SPECIMENOrdering Facility: [facility] Address: [address] [place] [address] Performed By: #### 5 7021-8 ####[facility] LABORATORYCLIA [id number] [place] [address] [place] RBC (Bld) [#/Vol] 3.76 10*6/uL Low 4.20-6.00 [facility] Comment on above: Order Comment: Speci men Type: BLOOD SPECIMENOrdering Facility: [facility] Address: [address] [place] [address] Performed By: #### 5 7021-8 ####[facility] LABORATORYCLIA [id number] [place] [address] [place] WBC (Bld) [#/Vol] 8.61 10*3/uL Normal 3.70-11.00 [facility] Comment on above: Order Comment: Kartik blood Type: BLOOD SPECIMENOrdering Facility: [facility] Address: [place] [address] Performed By: #### 5 7021-8 ####[facility] LABORATORYCLIA [id number] [place] [address] [facility] CONSULT PROGon 06-10-2023 CONSULT PROG Normal [facility] NURSING PROGon 06-10-2023 NURSING PROG Normal [facility] OPERATIVE NOon 06-10-2023 OPERATIVE NO Normal [facility] PT panel Coag (PPP)on 2022 INR Coag (PPP) [Relative time] 1.0 {INR} Normal 0.9-1.3 [facility] Comment on above: Order Comment: Kartik blood Type: BLOOD SPECIMENOrdering Facility: [facility] Address: [place] [address] Result Comment: Renee min K Antagonist (VKA) Therapeutic Range: INR 2 to 3 (Target INR of 2.5)Note: For patients treated with VKA drugs, such as warfarin, the [employer] 2012 Guideline recommends a therapeutic INR range of 2 to 3 (target INR of 2.5). This recommendation includes high-risk patients with antiphospholipid syndrome with previous arterial or venous thromboembolism, current-generation mechanical or bioprosthetic aortic heart valve replacement.Note: Patients with mechanical aortic valve replacement and additional risk factors for thromboembolic events (atrial fibrillation, previous thromboembolism, LV dysfunction, hypercoagulable conditions) or an older generation mechanical AVR (i.e., ball in-Cage) or any mechanical MVR should have a INR therapeutic range of 2.5 to 3.5 (target INR of 3).Sal GH, et al. Chest 2012, 141:7S-47SNishimura RA, et al. [facility] 2017, 70: 252-289 Performed By: #### 3 4528-0 ####[facility] LABORATORYCLIA [id number] [address] [place] PT Coag (PPP) [Time] 10.3 s Normal 9.7-13.0 [facility] Comment on above: Order Comment: Speci men Type: BLOOD SPECIMENOrdering Facility: [facility] Address: [address] [place] [address] Performed By: #### 3 4528-0 ####[facility] LABORATORYCLIA [id number] [address] [place] CASE MGT INIT ASSESon 2022 CASE MGT INIT ASSES Normal [facility] CBC W Auto Differential pane l (Bld)on 06-09-2023 Basophils (Bld) [#/Vol] 0.04 10*3/uL Normal <0.11 [facility] Comment on above: Order Comment: Speci men Type: BLOOD SPECIMENOrdering Facility: [facility] Address: [address] [place] [address] Performed By: #### 5 7021-8 ####[facility] LABORATORYCLIA [id number] [address] Basophils/100 WBC (Bld) 0.5 % Normal [facility] Comment on above: Order Comment: Speci men Type: BLOOD SPECIMENOrdering Facility: [facility] Address: [address] [place] [address] Performed By: #### 5 7021-8 ####[facility] LABORATORYCLIA [id number] [address] [place] Differential cell count method Nom (Bld) Auto Normal [facility] Comment on above: Order Comment: Speci men Type: BLOOD SPECIMENOrdering Facility: [facility] Address: [address] [place] [address] Performed By: #### 5 7021-8 ####[facility] LABORATORYCLIA [id number] [place] [address] [place] Eosinophils (Bld) [#/Vol] 0.72 10*3/uL High <0.46 [facility] Comment on above: Order Comment: Speci men Type: BLOOD SPECIMENOrdering Facility: [facility] Address: [address] [place] [address] Performed By: #### 5 7021-8 ####[facility] LABORATORYCLIA [id number] [address] Eosinophils/100 WBC (Bld) 8.2 % Normal [facility] Comment on above: Order Comment: Speci men Type: BLOOD SPECIMENOrdering Facility: [facility] Address: [address] [place] [address] Performed By: #### 5 7021-8 ####[facility] LABORATORYCLIA [id number] [address] Erythrocyte distribution width (RBC) [Ratio] 14.1 % Normal 11.5-15.0 [facility] Comment on above: Order Comment: Speci men Type: BLOOD SPECIMENOrdering Facility: [facility] Address: [address] [place] [address] Performed By: #### 5 7021-8 ####[facility] LABORATORYCLIA [id number] [address] Hematocrit (Bld) [Volume fraction] 39.3 % Normal 39.0-51.0 [facility] Comment on above: Order Comment: Speci men Type: BLOOD SPECIMENOrdering Facility: [facility] Address: [address] [place] [address] Performed By: #### 5 7021-8 ####[facility] LABORATORYCLIA [id number] [address] [place] Hemoglobin (Bld) [Mass/Vol] 12.9 g/dL Low 13.0-17.0 [facility] Comment on above: Order Comment: Speci men Type: BLOOD SPECIMENOrdering Facility: [facility] Address: [address] [place] [address] Performed By: #### 5 7021-8 ####[facility] LABORATORYCLIA [id number] [address] Immature granulocytes (Bld) [#/Vol] 0.04 10*3/uL Normal <0.10 [facility] Comment on above: Order Comment: Speci men Type: BLOOD SPECIMENOrdering Facility: [facility] Address: [address] [place] [address] Performed By: #### 5 7021-8 ####[facility] LABORATORYCLIA [id number] [address] STATES [facility] Immature granulocytes/100 WBC (Bld) 0.5 % Normal [facility] Comment on above: Order Comment: Speci men Type: BLOOD SPECIMENOrdering Facility: [facility] Address: [address] [place] [address] Performed By: #### 5 7021-8 ####[facility] LABORATORYCLIA [id number] [address] [place] Lymphocytes (Bld) [#/Vol] 2.82 10*3/uL Normal 1.00-4.00 [facility] Comment on above: Order Comment: Speci men Type: BLOOD SPECIMENOrdering Facility: [facility] Address: [address] [place] [address] Performed By: #### 5 7021-8 ####[facility] LABORATORYCLIA [id number] [address] Lymphocytes/100 WBC (Bld) 32.3 % Normal [facility] Comment on above: Order Comment: Speci men Type: BLOOD SPECIMENOrdering Facility: [facility] Address: [address] [place] [address] Performed By: #### 5 7021-8 ####[facility]ORATORYCLIA [id number] [address] [place] MCH (RBC) [Entitic mass] 32.3 pg Normal 26.0-34.0 [facility] Comment on above: Order Comment: Speci men Type: BLOOD SPECIMENOrdering Facility: [facility] Address: [address] [place] [address] Performed By: #### 5 7021-8 ####[facility]ORATORYCLIA [id number] [address] [place] MCHC (RBC) [Mass/Vol] 32.8 g/dL Normal 30.5-36.0 [facility] Comment on above: Order Comment: Speci men Type: BLOOD SPECIMENOrdering Facility: [facility] Address: [address] [place] [address] Performed By: #### 5 7021-8 ####[facility] LABORATORYCLIA [id number] [address] [place] MCV (RBC) [Entitic vol] 98.5 fL Normal 80.0-100.0 [facility] Comment on above: Order Comment: Speci men Type: BLOOD SPECIMENOrdering Facility: [facility] Address: [address] [place] [address] Performed By: #### 5 7021-8 ####[facility] LABORATORYCLIA [id number] [address] [place] Monocytes (Bld) [#/Vol] 0.98 10*3/uL High <0.87 [facility] Comment on above: Order Comment: Speci men Type: BLOOD SPECIMENOrdering Facility: [facility] Address: [address] [place] [address] Performed By: #### 5 7021-8 ####[facility] LABORATORYCLIA [id number] [address] [place] [facility] Monocytes/100 WBC (Bld) 11.2 % Normal [facility] Comment on above: Order Comment: Speci men Type: BLOOD SPECIMENOrdering Facility: [facility] Address: [address] [place] [address] Performed By: #### 5 7021-8 ####[facility] LABORATORYCLIA [id number] [address] [place] Neutrophils (Bld) [#/Vol] 4.13 10*3/uL Normal 1.45-7.50 [facility] Comment on above: Order Comment: Speci men Type: BLOOD SPECIMENOrdering Facility: [facility] Address: [address] [place] [address] Performed By: #### 5 7021-8 ####[facility]ORATORYCLIA [id number] [address] [place] Neutrophils/100 WBC (Bld) 47.3 % Normal [facility] Comment on above: Order Comment: Speci men Type: BLOOD SPECIMENOrdering Facility: [facility] Address: [address] [place] [address] Performed By: #### 5 7021-8 ####[facility]ORATORYCLIA [id number] [address] [place] Nucleated RBC (Bld) [#/Vol] 10*3/uL Normal <0.01 [facility] Comment on above: Order Comment: Speci men Type: BLOOD SPECIMENOrdering Facility: [facility] Address: [address] [place] [address] Performed By: #### 5 7021-8 ####[facility] LABORATORYCLIA [id number] [address] [place] Nucleated RBC/100 WBC (Bld) [Ratio] 0.0 /100 WBC Normal [facility] Comment on above: Order Comment: Speci men Type: BLOOD SPECIMENOrdering Facility: [facility] Address: [address] [place] [address] Performed By: #### 5 7021-8 ####[facility] LABORATORYCLIA [id number] [place] [address] [place] Platelet mean volume (Bld) [Entitic vol] 9.3 fL Normal 9.0-12.7 [facility] Comment on above: Order Comment: Speci men Type: BLOOD SPECIMENOrdering Facility: [facility] Address: [address] [place] [address] Performed By: #### 5 7021-8 ####[facility]ORATORYCLIA [id number] [place] [address] [place] Platelets (Bld) [#/Vol] 388 10*3/uL Normal 150-400 [facility] Comment on above: Order Comment: Speci men Type: BLOOD SPECIMENOrdering Facility: [facility] Address: [address] [place] [address] Performed By: #### 5 7021-8 ####[facility] LABORATORYCLIA [id number] [address] [place] RBC (Bld) [#/Vol] 3.99 10*6/uL Low 4.20-6.00 [facility] Comment on above: Order Comment: Speci men Type: BLOOD SPECIMENOrdering Facility: [facility] Address: [address] [place] [address] Performed By: #### 5 7021-8 ####[facility] LABORATORYCLIA [id number] [address] STATES OF [facility] WBC (Bld) [#/Vol] 8.73 10*3/uL Normal 3.70-11.00 [facility] Comment on above: Order Comment: Speci men Type: BLOOD SPECIMENOrdering Facility: [facility] Address: [address] [place] [address] Performed By: #### 5 7021-8 ####[facility] LABORATORYCLIA [id number] [address] OF [facility] CONSULT PROGon 06-09-2023 CONSULT PROG Normal [facility] PT EDon 06-09-2023 PT ED Normal [facility] THERAPY NTon 06-09-2023 THERAPY NT Normal [facility] THERAPY NT Normal [facility] Basic metabolic 2000 panelon 06-08-2023 Anion gap [Moles/Vol] 5 mmol/L Low 9-18 [facility] Comment on above: Order Comment: Speci men Type: BLOOD SPECIMENOrdering Facility: [facility] Address: [address] [place] [address] Performed By: #### 2 4321-2 ####[facility] LABORATORYCLIA [id number] [address] [place] Calcium [Mass/Vol] 8.3 mg/dL Low 8.5-10.2 [facility] Comment on above: Order Comment: Speci men Type: BLOOD SPECIMENOrdering Facility: [facility] Address: [address] [place] [address] Performed By: #### 2 4321-2 ####[facility] LABORATORYCLIA [id number] [address] Chloride [Moles/Vol] 105 mmol/L Normal 97-105 [facility] Comment on above: Order Comment: Speci men Type: BLOOD SPECIMENOrdering Facility: [facility] Address: [address] [place] [address] Performed By: #### 2 4321-2 ####[facility] LABORATORYCLIA [id number] [address] CO2 [Moles/Vol] 27 mmol/L Normal 22-30 [facility] Comment on above: Order Comment: Speci men Type: BLOOD SPECIMENOrdering Facility: [facility] Address: [address] [place] [address] Performed By: #### 2 4321-2 ####[facility] LABORATORYCLIA [id number] [address] Creatinine [Mass/Vol] 0.96 mg/dL Normal 0.73-1.22 [facility] Comment on above: Order Comment: Speci men Type: BLOOD SPECIMENOrdering Facility: [facility] Address: [address] [place] [address] Performed By: #### 2 4321-2 ####[facility] LABORATORYCLIA [id number] [address] Creatinine and Glomerular filtration rate.predicted panel (S/P/Bld) 93 mL/min/1.73m??? Normal >=60 [facility] Comment on above: Order Comment: Speci men Type: BLOOD SPECIMENOrdering Facility: [facility] Address: [address] [place] [address] Result Comment: Mariaa mated Glomerular Filtration Rate (eGFR) is calculated using the 2020 CKD-EPI creatinine equation. This equation utilizes serum creatinine, sex, and age as parameters. The creatinine assay has traceable calibration to isotope dilution-mass spectrometry. Refer to KDIGO guidelines for clinical interpretation. In patients with unstable renal function, e.g. those with acute kidney injury, the eGFR may not accurately reflect actual GFR. Performed By: #### 2 4321-2 ####[facility] LABORATORYCLIA [id number] [place] [address] [place] Glucose [Mass/Vol] 111 mg/dL High 74-99 [facility] Comment on above: Order Comment: Speci men Type: BLOOD SPECIMENOrdering Facility: [facility] Address: [address] [place] [address] Result Comment: The [place] Diabetes Association (ADA) provides guidance for cutoff values for fasting glucose and random glucose. The ADA defines fasting as no caloric intake for at least 8 hours. Fasting plasma glucose results between 100 to 125 mg/dL indicate increased risk for diabetes (prediabetes).Fasting plasma glucose results greater than or equal to 126 mg/dL meet the criteria for diagnosis of diabetes. In the absence of unequivocal hyperglycemia, results should be confirmed by repeat testing. In a patient with classic symptoms of hyperglycemia or hyperglycemic crisis, random plasma glucose results greater than or equal to 200 mg/dL meet the criteria for diagnosis of diabetes.Reference: Standards of Medical Care in Diabetes 2016, [employer] Diabetes Association. Diabetes Care. 2016.39(Suppl 1). Performed By: #### 2 4321-2 ####[facility] LABORATORYCLIA [id number] [place] [address] [place] Potassium [Moles/Vol] 4.2 mmol/L Normal 3.7-5.1 [facility] Comment on above: Order Comment: Kartik blood Type: BLOOD SPECIMENOrdering Facility: [facility] Address: [address] [place] [address] Performed By: #### 2 4321-2 ####[facility] LABORATORYCLIA [id number] [place] [id number] [place] Sodium [Moles/Vol] 137 mmol/L Normal 136-144 [facility] Comment on above: Order Comment: Kartik blood Type: BLOOD SPECIMENOrdering Facility: [facility] Address: [address] [place] [address] Performed By: #### 2 4321-2 ####[facility] LABORATORYCLIA [id number] [address] STATES [facility] Urea nitrogen [Mass/Vol] 16 mg/dL Normal 9-24 [facility] Comment on above: Order Comment: Speci men Type: BLOOD SPECIMENOrdering Facility: [facility] Address: [address] [place] [address] Performed By: #### 2 4321-2 ####[facility] LABORATORYCLIA [id number] [address] [place] CBC W Auto Differential pane l (Bld)on 06-08-2023 Basophils (Bld) [#/Vol] 0.05 10*3/uL Normal <0.11 [facility] Comment on above: Order Comment: Speci men Type: BLOOD SPECIMENOrdering Facility: [facility] Address: [address] [place] [address] Performed By: #### 5 7021-8 ####[facility] LABORATORYCLIA [id number] [address] STATES [facility] Basophils/100 WBC (Bld) 0.6 % Normal [facility] Comment on above: Order Comment: Speci men Type: BLOOD SPECIMENOrdering Facility: [facility] Address: [address] [place] [address] Performed By: #### 5 7021-8 ####[facility] LABORATORYCLIA [id number] [address] Differential cell count method Nom (Bld) Auto Normal [facility] Comment on above: Order Comment: Speci men Type: BLOOD SPECIMENOrdering Facility: [facility] Address: [address] [place] [address] Performed By: #### 5 7021-8 ####[facility] LABORATORYCLIA [id number] [address] [place] Eosinophils (Bld) [#/Vol] 0.64 10*3/uL High <0.46 [facility] Comment on above: Order Comment: Speci men Type: BLOOD SPECIMENOrdering Facility: [facility] Address: [address] [place], [place] [address] Performed By: #### 5 7021-8 ####[facility] LABORATORYCLIA [id number] [address] Eosinophils/100 WBC (Bld) 7.4 % Normal [facility] Comment on above: Order Comment: Speci men Type: BLOOD SPECIMENOrdering Facility: [facility] Address: [address] [place] [address] Performed By: #### 5 7021-8 ####[facility] LABORATORYCLIA [id number] [address] [place] Erythrocyte distribution width (RBC) [Ratio] 14.0 % Normal 11.5-15.0 [facility] Comment on above: Order Comment: Speci men Type: BLOOD SPECIMENOrdering Facility: [facility] Address: [address] [place] [address] Performed By: #### 5 7021-8 ####[facility] LABORATORYCLIA [id number] [address] Hematocrit (Bld) [Volume fraction] 42.8 % Normal 39.0-51.0 [facility] Comment on above: Order Comment: Speci men Type: BLOOD SPECIMENOrdering Facility: [facility] Address: [address] [place] [address] Performed By: #### 5 7021-8 ####[facility] LABORATORYCLIA [id number] [address] [place] Hemoglobin (Bld) [Mass/Vol] 14.1 g/dL Normal 13.0-17.0 [facility] Comment on above: Order Comment: Speci men Type: BLOOD SPECIMENOrdering Facility: [facility] Address: [address] [place] [address] Performed By: #### 5 7021-8 ####[facility] LABORATORYCLIA [id number] [address] Immature granulocytes (Bld) [#/Vol] 0.04 10*3/uL Normal <0.10 [facility] Comment on above: Order Comment: Speci men Type: BLOOD SPECIMENOrdering Facility: [facility] Address: [address] [place] [address] Performed By: #### 5 7021-8 ####[facility]ORATORYCLIA [id number] [address] Immature granulocytes/100 WBC (Bld) 0.5 % Normal [facility] Comment on above: Order Comment: Speci men Type: BLOOD SPECIMENOrdering Facility: [facility] Address: [address] [place] [address] Performed By: #### 5 7021-8 ####[facility]ATORYCLIA [id number] [address] Lymphocytes (Bld) [#/Vol] 2.88 10*3/uL Normal 1.00-4.00 [facility] Comment on above: Order Comment: Speci men Type: BLOOD SPECIMENOrdering Facility: [facility] Address: [address] [place] [address] Performed By: #### 5 7021-8 ####[facility]ATORYCLIA [id number] [address] Lymphocytes/100 WBC (Bld) 33.2 % Normal [facility] Comment on above: Order Comment: Speci men Type: BLOOD SPECIMENOrdering Facility: [facility] Address: [address] [place] [address] Performed By: #### 5 7021-8 ####[facility]ATORYCLIA [id number] [address] STATES [facility] MCH (RBC) [Entitic mass] 32.3 pg Normal 26.0-34.0 [facility] Comment on above: Order Comment: Speci men Type: BLOOD SPECIMENOrdering Facility: [facility] Address: [address] [place] [address] Performed By: #### 5 7021-8 ####[facility]ATORYCLIA [id number] [address] STATES [facility] MCHC (RBC) [Mass/Vol] 32.9 g/dL Normal 30.5-36.0 [facility] Comment on above: Order Comment: Speci men Type: BLOOD SPECIMENOrdering Facility: [facility] Address: [address] [place] [address] Performed By: #### 5 7021-8 ####[facility] LABORATORYCLIA [id number] [address] [place] MCV (RBC) [Entitic vol] 98.2 fL Normal 80.0-100.0 [facility] Comment on above: Order Comment: Speci men Type: BLOOD SPECIMENOrdering Facility: [facility] Address: [address] [place] [address] Performed By: #### 5 7021-8 ####[facility] LABORATORYCLIA [id number] [address] [place] Monocytes (Bld) [#/Vol] 0.94 10*3/uL High <0.87 [facility] Comment on above: Order Comment: Speci men Type: BLOOD SPECIMENOrdering Facility: [facility] Address: [address] [place] [address] Performed By: #### 5 7021-8 ####[facility] LABORATORYCLIA [id number] [address] Monocytes/100 WBC (Bld) 10.8 % Normal [facility] Comment on above: Order Comment: Speci men Type: BLOOD SPECIMENOrdering Facility: [facility] Address: [address] [place] [address] Performed By: #### 5 7021-8 ####[facility] LABORATORYCLIA [id number] [address] [place] Neutrophils (Bld) [#/Vol] 4.13 10*3/uL Normal 1.45-7.50 [facility] Comment on above: Order Comment: Speci men Type: BLOOD SPECIMENOrdering Facility: [facility] Address: [address] [place] [address] Performed By: #### 5 7021-8 ####[facility] LABORATORYCLIA [id number] [address] Neutrophils/100 WBC (Bld) 47.5 % Normal [facility] Comment on above: Order Comment: Speci men Type: BLOOD SPECIMENOrdering Facility: [facility] Address: [address] [place] [address] Performed By: #### 5 7021-8 ####[facility]ORATORYCLIA [id number] [address] [place] Nucleated RBC (Bld) [#/Vol] 10*3/uL Normal <0.01 [facility] Comment on above: Order Comment: Speci men Type: BLOOD SPECIMENOrdering Facility: [facility] Address: [address] [place] [address] Performed By: #### 5 7021-8 ####[facility]ORATORYCLIA [id number] [address] Nucleated RBC/100 WBC (Bld) [Ratio] 0.0 /100 WBC Normal [facility] Comment on above: Order Comment: Speci men Type: BLOOD SPECIMENOrdering Facility: [facility] Address: [address] [place] [address] Performed By: #### 5 7021-8 ####[facility]ORATORYCLIA [id number] [address] [place] Platelet mean volume (Bld) [Entitic vol] 9.2 fL Normal 9.0-12.7 [facility] Comment on above: Order Comment: Speci men Type: BLOOD SPECIMENOrdering Facility: [facility] Address: [address] [place] [address] Performed By: #### 5 7021-8 ####[facility] LABORATORYCLIA [id number] [place] [address] [place] Platelets (Bld) [#/Vol] 390 10*3/uL Normal 150-400 [facility] Comment on above: Order Comment: Speci men Type: BLOOD SPECIMENOrdering Facility: [facility] Address: [address] [place] [address] Performed By: #### 5 7021-8 ####[facility]ORATORYCLIA [id number] [place] [address] [place] RBC (Bld) [#/Vol] 4.36 10*6/uL Normal 4.20-6.00 [facility] Comment on above: Order Comment: Speci men Type: BLOOD SPECIMENOrdering Facility: [facility] Address: [address] [place] [address] Performed By: #### 5 7021-8 ####[facility] LABORATORYCLIA [id number] [place] [address] [place] WBC (Bld) [#/Vol] 8.68 10*3/uL Normal 3.70-11.00 [facility] Comment on above: Order Comment: Speci men Type: BLOOD SPECIMENOrdering Facility: [facility] Address: [address] [place] [address] Performed By: #### 5 7021-8 ####[facility] LABORATORYCLIA [id number] [address] [place] CONSULT PROGon 06-08-2023 CONSULT PROG Normal [facility] CONSULT PROG Normal [facility] NURSING PROGon 06-08-2023 NURSING PROG Normal [facility] ANES POSTPROC EVALon 023 ANES POSTPROC EVAL Normal [facility] ANES PRE-OPon 06-07-2023 ANES PRE-OP Normal [facility] BRIEF OP NOTon 06-07-2023 BRIEF OP NOT Normal [facility] CBC W Auto Differential pane l (Bld)on 06-07-2023 Basophils (Bld) [#/Vol] 0.08 10*3/uL Normal <0.11 [facility] Comment on above: Order Comment: Speci men Type: BLOOD SPECIMENOrdering Facility: [facility] Address: [address] [place] [address] Performed By: #### 5 7021-8 ####[facility] LABORATORYCLIA [id number] [address] [place] Basophils/100 WBC (Bld) 0.8 % Normal [facility] Comment on above: Order Comment: Speci men Type: BLOOD SPECIMENOrdering Facility: [facility] Address: [address] [place] [address] Performed By: #### 5 7021-8 ####[facility] LABORATORYCLIA [id number] [address] Differential cell count method Nom (Bld) Auto Normal [facility] Comment on above: Order Comment: Speci men Type: BLOOD SPECIMENOrdering Facility: [facility] Address: [address] [place] [address] Performed By: #### 5 7021-8 ####[facility] LABORATORYCLIA [id number] [address] [place] Eosinophils (Bld) [#/Vol] 0.71 10*3/uL High <0.46 [facility] Comment on above: Order Comment: Speci men Type: BLOOD SPECIMENOrdering Facility: [facility] Address: [address] [place] [address] Performed By: #### 5 7021-8 ####[facility] LABORATORYCLIA [id number] [address] STATES [facility] Eosinophils/100 WBC (Bld) 6.8 % Normal [facility] Comment on above: Order Comment: Speci men Type: BLOOD SPECIMENOrdering Facility: [facility] Address: [address] [place] [address] Performed By: #### 5 7021-8 ####[facility] LABORATORYCLIA [id number] [address] Erythrocyte distribution width (RBC) [Ratio] 13.2 % Normal 11.5-15.0 [facility] Comment on above: Order Comment: Speci men Type: BLOOD SPECIMENOrdering Facility: [facility] Address: [address] [place] [address] Performed By: #### 5 7021-8 ####[facility]ATORYCLIA [id number] [address] [place] Hematocrit (Bld) [Volume fraction] 46.2 % Normal 39.0-51.0 [facility] Comment on above: Order Comment: Speci men Type: BLOOD SPECIMENOrdering Facility: [facility] Address: [address] [place] [address] Performed By: #### 5 7021-8 ####[facility]ATORYCLIA [id number] [address] [place] Hemoglobin (Bld) [Mass/Vol] 16.5 g/dL Normal 13.0-17.0 [facility] Comment on above: Order Comment: Speci men Type: BLOOD SPECIMENOrdering Facility: [facility] Address: [address] [place] [address] Performed By: #### 5 7021-8 ####[facility] LABORATORYCLIA [id number] [place] [address] [place] Immature granulocytes (Bld) [#/Vol] 0.04 10*3/uL Normal <0.10 [facility] Comment on above: Order Comment: Speci men Type: BLOOD SPECIMENOrdering Facility: [facility] Address: [address] [place] [address] Performed By: #### 5 7021-8 ####[facility] LABORATORYCLIA [id number] [address] [place] Immature granulocytes/100 WBC (Bld) 0.4 % Normal [facility] Comment on above: Order Comment: Speci men Type: BLOOD SPECIMENOrdering Facility: [facility] Address: [address] [place] [address] Performed By: #### 5 7021-8 ####[facility]ATORYCLIA [id number] [place] [address] [place] Lymphocytes (Bld) [#/Vol] 3.06 10*3/uL Normal 1.00-4.00 [facility] Comment on above: Order Comment: Speci men Type: BLOOD SPECIMENOrdering Facility: [facility] Address: [address] [place] [address] Performed By: #### 5 7021-8 ####[facility]ATORYCLIA [id number] [address] STATES OF [facility] Lymphocytes/100 WBC (Bld) 29.2 % Normal [facility] Comment on above: Order Comment: Speci men Type: BLOOD SPECIMENOrdering Facility: [facility] Address: [address] [place] [address] Performed By: #### 5 7021-8 ####[facility] LABORATORYCLIA [id number] [address] [place] MCH (RBC) [Entitic mass] 33.3 pg Normal 26.0-34.0 [facility] Comment on above: Order Comment: Speci men Type: BLOOD SPECIMENOrdering Facility: [facility] Address: [address] [place] [address] Performed By: #### 5 7021-8 ####[facility] LABORATORYCLIA [id number] [address] [place] MCHC (RBC) [Mass/Vol] 35.7 g/dL Normal 30.5-36.0 [facility] Comment on above: Order Comment: Speci men Type: BLOOD SPECIMENOrdering Facility: [facility] Address: [address] [place] [address] Performed By: #### 5 7021-8 ####[facility] LABORATORYCLIA [id number] [address] [place] MCV (RBC) [Entitic vol] 93.1 fL Normal 80.0-100.0 [facility] Comment on above: Order Comment: Speci men Type: BLOOD SPECIMENOrdering Facility: [facility] Address: [address] [place] [address] Performed By: #### 5 7021-8 ####[facility] LABORATORYCLIA [id number] [address] [place] Monocytes (Bld) [#/Vol] 0.97 10*3/uL High <0.87 [facility] Comment on above: Order Comment: Speci men Type: BLOOD SPECIMENOrdering Facility: [facility] Address: [address] [place] [address] Performed By: #### 5 7021-8 ####[facility]ATORYCLIA [id number] [address] [place] Monocytes/100 WBC (Bld) 9.3 % Normal [facility] Comment on above: Order Comment: Speci men Type: BLOOD SPECIMENOrdering Facility: [facility] Address: [address] [place] [address] Performed By: #### 5 7021-8 ####[facility]ATORYCLIA [id number] [place] [address] [place] Neutrophils (Bld) [#/Vol] 5.61 10*3/uL Normal 1.45-7.50 [facility] Comment on above: Order Comment: Speci men Type: BLOOD SPECIMENOrdering Facility: [facility] Address: [address] [place] [address] Performed By: #### 5 7021-8 ####[facility]ATORYCLIA [id number] [address] [place] Neutrophils/100 WBC (Bld) 53.5 % Normal [facility] Comment on above: Order Comment: Speci men Type: BLOOD SPECIMENOrdering Facility: [facility] Address: [address] [place] [address] Performed By: #### 5 7021-8 ####[facility]ATORYCLIA [id number] [address] [place] Nucleated RBC (Bld) [#/Vol] 10*3/uL Normal <0.01 [facility] Comment on above: Order Comment: Speci men Type: BLOOD SPECIMENOrdering Facility: [facility] Address: [address] [place] [address] Performed By: #### 5 7021-8 ####[facility]ATORYCLIA [id number] [address] [place] Nucleated RBC/100 WBC (Bld)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 Disease Epidemiology Collaboration (CKD-EPI) equation refit without adjustment for race Glucose [Mass/Vol] 115 mg/dL High 70 - 100 mg/dL [facility] Interpretation and review of laboratory results Abnormal [facility] Potassium [Moles/Vol] 3.5 mmol/L 3.5 - 5.1 mmol/L [facility] Sodium [Moles/Vol] 136 mmol/L 135 - 145 mmol/L [facility] Urea nitrogen [Mass/Vol] 25 mg/dL High 9 - 20 mg/dL [facility] CBC W Auto Differential pane l (Bld)Ordered By: Maria Victoria Lvoe on 02-09-2023 Basophils (Bld) [#/Vol] 0.1 10*3/uL 0.0 - 0.2 10*3/uL [facility] Basophils/100 WBC (Bld) 0.8 % 0.0 - 2.0 % [facility] Eosinophils (Bld) [#/Vol] 0.2 10*3/uL 0.0 - 0.5 10*3/uL [facility] Eosinophils/100 WBC (Bld) 1.8 % 1.0 - 6.0 % [facility] Erythrocyte distribution width (RBC) [Ratio] 14.6 % High 11.5 - 14.5 % [facility] Hematocrit (Bld) [Volume fraction] 41.0 % 40.0 - 52.0 % [facility] Hemoglobin (Bld) [Mass/Vol] 13.5 g/dL 13.0 - 18.0 g/dL [facility] Interpretation and review of laboratory results Abnormal [facility] Lymphocytes (Bld) [#/Vol] 2.6 10*3/uL 1.0 - 4.3 10*3/uL [facility] Lymphocytes/100 WBC (Bld) 19.3 % Low 20.0 - 40.0 % [facility] MCH (RBC) [Entitic mass] 32.7 pg 26.0 - 34.0 pg [facility] MCHC (RBC) [Mass/Vol] 32.9 % 32.0 - 36.0 % [facility] MCV (RBC) [Entitic vol] 99.3 fL High 80.0 - 98.0 fL [facility] Monocytes (Bld) [#/Vol] 1.5 10*3/uL High 0.0 - 0.8 10*3/uL [facility] Monocytes/100 WBC (Bld) 10.9 % High 2.0 - 10.0 % [facility] Neutrophils (Bld) [#/Vol] 9.0 10*3/uL High 1.8 - 7.0 10*3/uL [facility] Neutrophils/100 WBC (Bld) 67.2 % 40.0 - 80.0 % [facility] Nucleated RBC/100 WBC (Bld) [Ratio] 0.1 % [facility] Platelet mean volume (Bld) [Entitic vol] 7.4 fL 7.4 - 12.4 fL [facility] [employer] Platelets (Bld) [#/Vol] 482 10*3/uL High 140 - 440 10*3/uL [facility] [employer] RBC (Bld) [#/Vol] 4.12 10*6/uL Low 4.40 - 5.90 10*6/uL [facility] [employer] WBC (Bld) [#/Vol] 13.4 10*3/uL High 3.6 - 10.7 10*3/uL [facility] [employer] [facility] CT ABDOMEN PELVIS W CONTRAST on 02-09-2023 CT ABDOMEN PELVIS W CONTRAST Patient Name: ISIDRO SMITH : 1965 [facility]#: [id number] Exam Date/Time: 02/09/2023 15:04 Procedure: CT ABDOMEN PELVIS W CONTRAST Ordering Provider: VALIENTE TYLER Reason For Exam: Retroperitoneal hematoma CT ABDOMEN AND PELVIS WITH CONTRAST CLINICAL INDICATION: Retroperitoneal hematoma TECHNIQUE: Transaxial sequence through the abdomen and pelvis with 3 mm reconstruction following oral contrast with dynamic intravenous infusion of 75 mL of 370 mg% contrast media. Coronal and sagittal reconstructions included. Dose reduction was employed with automated exposure control. COMPARISON: 02/09/2023 CT of the right femur FINDINGS: Lower chest: Mild bibasilar atelectasis without evidence of pleural effusion or focal consolidation. The heart is normal in size without evidence of pericardial effusion. The distal esophagus is unremarkable. Liver: The liver is normal in size and diffusely hypoattenuating in appearance. Nonspecific hypoattenuating lesion in the left hepatic lobe measuring 2.5 x 2.5 cm on series 3 image 37. Questionable linear lucency in hepatic segment seven on series 3 image 23. Biliary tree: Intrahepatic and extrahepatic ducts are nondilated. Gallbladder: The gallbladder is nondistended and without evidence of radiopaque stones. Pancreas: The pancreas appears unremarkable without evidence of ductal dilatation or mass. Spleen: No splenic tissue is identified. Adrenals: Bilateral adrenal glands appear normal. Kidneys: The bilateral kidneys are normal in size and enhance symmetrically. No hydroureteronephrosis or nephroureterolithiasis. Bladder: The urinary bladder appears normal without evidence of wall thickening. Pelvic organs/viscera: No mass identified Bowel: The stomach is unremarkable. The small and large bowel are normal in caliber without evidence of wall thickening. Postsurgical changes are seen within the bowel with primary anastomosis. Colonic diverticulosis. There is herniation of a portion of the colonic loop into the ventral abdominal wall hernia. Retroperitoneal/mesenteric lymphadenopathy: There is retroperitoneal hemorrhagic products with associated fat stranding. There is expansion of the right psoas muscle measuring 6.7 x 6.6 cm in comparison to the left psoas muscle measures 4.5 x 4.3 cm. Redemonstration of expansion of the right iliac's muscle with extension into the anterior compartment of the right thigh. No free air. Enlarged 2 cm portacaval lymph node. Additional prominent retroperitoneal lymph nodes are seen. Aorta: There is no aneurysmal dilatation of the abdominal aorta. Abdominal wall: Ventral abdominal wall hernia containing portion of a colonic loop that CT evidence of obstruction. Bones: No suspicious osseous lesions. Mild discogenic degenerative changes of the thoracolumbar spine. IMPRESSION: Right psoas and retroperitoneal hemorrhage extending into the previously described large right iliacus hematoma with extension into the anterior compartment of the right thigh. Nonspecific hypoattenuating lesions in the liver. Clinical correlation for liver hematoma/laceration is recommended. Further evaluation with ultrasound or MRI may be obtained as indicated. 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 Correlation with physical exam is recommended. Hepatic steatosis, correlation with LFTs is recommended. Nonspecific enlarged portacaval lymph node. Report Dictated on Electronically Signed By: Uri Bolton MD Electronically Signed Date/Time: 02/09/2023 3:31 PM EDT Large hematoma of the ilacus and anterior compartment of the right thigh Recommended per radiologist further eval Hx drug abuse/alcholism Normal [facility] CT Abdomen and Pelvis W cont rast [facility] 02-09-2023 Right psoas and retroperitoneal hemorrhage extending into the previously described large right iliacus hematoma with extension into the anterior compartment of the right thigh. Nonspecific hypoattenuating lesions in the liver. Clinical correlation for liver hematoma/laceration is recommended. Further evaluation with ultrasound or MRI may be obtained as indicated. 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 Correlation with physical exam is recommended. Hepatic steatosis, correlation with LFTs is recommended. Nonspecific enlarged portacaval lymph node. Report Dictated on Electronically Signed By: Uri Bolton MD Electronically Signed Date/Time: 02/09/2023 3:31 PM [facility] [employer] Patient Name: ISIDRO SMITH : 1965 [facility]#: [id number] Exam Date/Time: 02/09/2023 15:04 Procedure: CT ABDOMEN PELVIS W CONTRAST Ordering Provider: VALIENTE TYLER Reason For Exam: Retroperitoneal hematoma CT ABDOMEN AND PELVIS WITH CONTRAST CLINICAL INDICATION: Retroperitoneal hematoma TECHNIQUE: Transaxial sequence through the abdomen and pelvis with 3 mm reconstruction following oral contrast with dynamic intravenous infusion of 75 mL of 370 mg% contrast media. Coronal and sagittal reconstructions included. Dose reduction was employed with automated exposure control. COMPARISON: 02/09/2023 CT of the right femur FINDINGS: Lower chest: Mild bibasilar atelectasis without evidence of pleural effusion or focal consolidation. The heart is normal in size without evidence of pericardial effusion. The distal esophagus is unremarkable. Liver: The liver is normal in size and diffusely hypoattenuating in appearance. Nonspecific hypoattenuating lesion in the left hepatic lobe measuring 2.5 x 2.5 cm on series 3 image 37. Questionable linear lucency in hepatic segment seven on series 3 image 23. Biliary tree: Intrahepatic and extrahepatic ducts are nondilated. Gallbladder: The gallbladder is nondistended and without evidence of radiopaque stones. Pancreas: The pancreas appears unremarkable without evidence of ductal dilatation or mass. Spleen: No splenic tissue is identified. Adrenals: Bilateral adrenal glands appear normal. Kidneys: The bilateral kidneys are normal in size and enhance symmetrically. No hydroureteronephrosis or nephroureterolithiasis. Bladder: The urinary bladder appears normal without evidence of wall thickening. Pelvic organs/viscera: No mass identified Bowel: The stomach is unremarkable. The small and large bowel are normal in caliber without evidence of wall thickening. Postsurgical changes are seen within the bowel with primary anastomosis. Colonic diverticulosis. There is herniation of a portion of the colonic loop into the ventral abdominal wall hernia. Retroperitoneal/mesenteric lymphadenopathy: There is retroperitoneal hemorrhagic products with associated fat stranding. There is expansion of the right psoas muscle measuring 6.7 x 6.6 cm in comparison to the left psoas muscle measures 4.5 x 4.3 cm. Redemonstration of expansion of the right iliac's muscle with extension into the anterior compartment of the right thigh. No free air. Enlarged 2 cm portacaval lymph node. Additional prominent retroperitoneal lymph nodes are seen. Aorta: There is no aneurysmal dilatation of the abdominal aorta. Abdominal wall: Ventral abdominal wall hernia containing portion of a colonic loop that CT evidence of obstruction. Bones: No suspicious osseous lesions. Mild discogenic degenerative changes of the thoracolumbar spine. [facility] Uri Bolton MD - 02/09/2023 [facility] Name: [facility]IDRO SMITH : 1965 [id number] Exam Date/Time: 02/09/2023 15:04 Procedure: CT ABDOMEN PELVIS W CONTRAST Ordering Provider: VALIENTE TYLER Reason For Exam: Retroperitoneal hematoma CT ABDOMEN AND PELVIS WITH CONTRAST CLINICAL INDICATION: Retroperitoneal hematoma TECHNIQUE: Transaxial sequence through the abdomen and pelvis with 3 mm reconstruction following oral contrast with dynamic intravenous infusion of 75 mL of 370 mg% contrast media. Coronal and sagittal reconstructions included. Dose reduction was employed with automated exposure control. COMPARISON: 02/09/2023 CT of the right femur FINDINGS: Lower chest: Mild bibasilar atelectasis without evidence of pleural effusion or focal consolidation. The heart is normal in size without evidence of pericardial effusion. The distal esophagus is unremarkable. Liver: The liver is normal in size and diffusely hypoattenuating in appearance. Nonspecific hypoattenuating lesion in the left hepatic lobe measuring 2.5 x 2.5 cm on series 3 image 37. Questionable linear lucency in hepatic segment seven on series 3 image 23. Biliary tree: Intrahepatic and extrahepatic ducts are nondilated. Gallbladder: The gallbladder is nondistended and without evidence of radiopaque stones. Pancreas: The pancreas appears unremarkable without evidence of ductal dilatation or mass. Spleen: No splenic tissue is identified. Adrenals: Bilateral adrenal glands appear normal. Kidneys: The bilateral kidneys are normal in size and enhance symmetrically. No hydroureteronephrosis or nephroureterolithiasis. Bladder: The urinary bladder appears normal without evidence of wall thickening. Pelvic organs/viscera: No mass identified Bowel: The stomach is unremarkable. The small and large bowel are normal in caliber without evidence of wall thickening. Postsurgical changes are seen within the bowel with primary anastomosis. Colonic diverticulosis. There is herniation of a portion of the colonic loop into the ventral abdominal wall hernia. Retroperitoneal/mesenteric lymphadenopathy: There is retroperitoneal hemorrhagic products with associated fat stranding. There is expansion of the right psoas muscle measuring 6.7 x 6.6 cm in comparison to the left psoas muscle measures 4.5 x 4.3 cm. Redemonstration of expansion of the right iliac's muscle with extension into the anterior compartment of the right thigh. No free air. Enlarged 2 cm portacaval lymph node. Additional prominent retroperitoneal lymph nodes are seen. Aorta: There is no aneurysmal dilatation of the abdominal aorta. Abdominal wall: Ventral abdominal wall hernia containing portion of a colonic loop that CT evidence of obstruction. Bones: No suspicious osseous lesions. Mild discogenic degenerative changes of the thoracolumbar spine. IMPRESSION: Right psoas and retroperitoneal hemorrhage extending into the previously described large right iliacus hematoma with extension into the anterior compartment of the right thigh. Nonspecific hypoattenuating lesions in the liver. Clinical correlation for liver hematoma/laceration is recommended. Further evaluation with ultrasound or MRI may be obtained as indicated. 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 Correlation with physical exam is recommended. Hepatic steatosis, correlation with LFTs is recommended. Nonspecific enlarged portacaval lymph node. Report Dictated on Electronically Signed By: Uri Bolton MD Electronically Signed Date/Time: 02/09/2023 3:31 PM EDT [facility] [employer] Radiology [facility]narrative[facility] rast IVOrdered By: Uri Bolton on 02-09-2023 [employer] Work Phone: CT FEMUR RIGHT W IV CONTRAST on 02-09-2023 CT FEMUR RIGHT W IV CONTRAST Patient Name: ISIDRO SMITH : 1965 Exam Date/Time: 02/09/2023 14:05 Procedure: CT FEMUR RIGHT W IV CONTRAST Ordering Provider: CONN RACHEL Reason For Exam: concern for thigh hematoma CT FEMUR RIGHT W IV CONTRAST HISTORY: concern for thigh hematoma TECHNIQUE: Routine CT of the right femur with contrast. Dose reduction was employed with automated exposure control. COMPARISON: None available RESULT: Large density involving the iliac crest and extending into the anterior compartment of the right thigh in keeping with clinically reported hematoma measures up to 9 x 6 cm in greatest axial dimensions. This measures at least 14 cm in craniocaudal dimension though the superior extent is not included in the field of view. No contrast extravasation. No aneurysm within constraints of the venous phase of imaging. Contrast is noted in the urinary bladder. Right hip joint and pubic sepsis are intact. No acute fractures. IMPRESSION: No acute osseous abnormality of the visualized femur. Large hematoma of the iliacus and anterior compartment of the right thigh in keeping with provided history. No contrast extravasation. No visible aneurysm within constraints of venous phase of imaging. The superior most extent is not visualized and true size is not known. Consider further evaluation with CT of the abdomen/pelvis. CRITICAL TEST RESULT COMMUNICATION: Notification of these findings was made to Dr. Valiente via phone call on 02/09/2023 2:12 PM EDT. 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 Hx of alcohol abuse/drug abuse Best imaging possible pt refusing to listen to instructions and moving Normal [facility] CT Thigh - right W contrast [place] 02-09-2023 No acute osseous abn ormality of the visualized femur. Large hematoma of the iliacus and anterior compartment of the right thigh in keeping with provided history. No contrast extravasation. No visible aneurysm within constraints of venous phase of imaging. The superior most extent is not visualized and true size is not known. Consider further evaluation with CT of the abdomen/pelvis. CRITICAL TEST RESULT COMMUNICATION: Notification of these findings was made to Dr. Valiente via phone call on 02/09/2023 2:12 PM EDT. Report Dictated on Electronically Signed By: Daniel Pan MD Electronically Signed Date/Time: 02/09/2023 2:14 PM EDT [facility] Patient Name: ISIDRO SMITH : 1965 Exam Date/Time: 02/09/2023 14:05 Procedure: CT FEMUR RIGHT W IV CONTRAST Ordering Provider: CONN RACHEL Reason For Exam: concern for thigh hematoma CT FEMUR RIGHT W IV CONTRAST HISTORY: concern for thigh hematoma TECHNIQUE: Routine CT of the right femur with contrast. Dose reduction was employed with automated exposure control. COMPARISON: None available RESULT: Large density involving the iliac crest and extending into the anterior compartment of the right thigh in keeping with clinically reported hematoma measures up to 9 x 6 cm in greatest axial dimensions. This measures at least 14 cm in craniocaudal dimension though the superior extent is not included in the field of view. No contrast extravasation. No aneurysm within constraints of the venous phase of imaging. Contrast is noted in the urinary bladder. Right hip joint and pubic sepsis are intact. No acute fractures. [facility] Daniel Pan MD - 02/09/2023 Patient Name: ISIDRO SMITH : 1965 Exam Date/Time: 02/09/2023 14:05 Procedure: CT FEMUR RIGHT W IV CONTRAST Ordering Provider: CONN RACHEL Reason For Exam: concern for thigh hematoma CT FEMUR RIGHT W IV CONTRAST HISTORY: concern for thigh hematoma TECHNIQUE: Routine CT of the right femur with contrast. Dose reduction was employed with automated exposure control. COMPARISON: None available RESULT: Large density involving the iliac crest and extending into the anterior compartment of the right thigh in keeping with clinically reported hematoma measures up to 9 x 6 cm in greatest axial dimensions. This measures at least 14 cm in craniocaudal dimension though the superior extent is not included in the field of view. No contrast extravasation. No aneurysm within constraints of the venous phase of imaging. Contrast is noted in the urinary bladder. Right hip joint and pubic sepsis are intact. No acute fractures. IMPRESSION: No acute osseous abnormality of the visualized femur. Large hematoma of the iliacus and anterior compartment of the right thigh in keeping with provided history. No contrast extravasation. No visible aneurysm within constraints of venous phase of imaging. The superior most extent is not visualized and true size is not known. Consider further evaluation with CT of the abdomen/pelvis. CRITICAL TEST RESULT COMMUNICATION: Notification of these findings was made to Dr. Valiente via phone call on 02/09/2023 2:12 PM EDT. Report Dictated on Electronically Signed By: Daniel Pan MD Electronically Signed Date/Time: 02/09/2023 2:14 PM EDT [facility] Radiology Study observation (narrative) [facility] CT Thigh - right W contrast IVOrdered By: Daniel Pan on 02-09-2023 [facility] Work Phone: ED Nursing Noteon 02-09-2023 ED Nursing Note Pt states that he farah s factor five disease and is having increasing right hip pain and believes he has internal bleeding, states he was recently hospitalized for same thing. Normal [facility] ED Nursing Note Bed: 04 Expected date: Expected time: Means of arrival: Comments: Risa Dunham RN 02/09/23 1132 Normal [facility] ED Provider Noteon ED Provider Note Emergency Department Encounter Location: [facility] ED Patient: Isidro Smith : 1965 Date of evaluation: 02/09/2023 ED Provider: Lev Michele PA-C Time received sign-out: 1700 Isidro Smith was checked out to me by Anika Conn PA-C. Please see his/her initial documentation for details of the patient's initial ED presentation, physical exam and completed studies. In brief, Isidro Smith is a 57 y.o. adult that presented to the emergency department ration of right groin and thigh pain. Was just admitted at [facility] for iliopsoas hematoma, history of hemophilia B, awaiting admission to [facility], we do not have the recombinant factor here at [place] or at [facility]. Will need to be admitted to [facility] and patient does not want to return back to [facility]. I have reviewed and interpreted all of the currently available lab results and diagnostics from this visit: Results for orders placed or performed during the hospital encounter of 02/09/23 Basic metabolic panel Result Value Ref Range SODIUM 136 135 - 145 mmol/L POTASSIUM 3.5 3.5 - 5.1 mmol/L CHLORIDE 101 98 - 107 mmol/L CARBON DIOXIDE 27 22 - 30 mmol/L UREA NITROGEN 25 (H) 9 - 20 mg/dL CREATININE 1.00 0.66 - 1.25 mg/dL GLUCOSE 115 (H) 70 - 100 mg/dL CALCIUM 8.5 8.4 - 10.4 mg/dL ANION GAP 8 3 - 13 mmol/L eGFR 88.3 >60.0 mL/min/1.73m*2 CBC auto differential Result Value Ref Range Auto WBC 13.4 (H) 3.6 - 10.7 10*3/uL RBC 4.12 (L) 4.40 - 5.90 10*6/uL Hemoglobin 13.5 13.0 - 18.0 g/dL Hematocrit 41.0 40.0 - 52.0 % MCV 99.3 (H) 80.0 - 98.0 fL MCH 32.7 26.0 - 34.0 pg MCHC 32.9 32.0 - 36.0 % RDW 14.6 (H) 11.5 - 14.5 % Platelets 482 (H) 140 - 440 10*3/uL MPV 7.4 7.4 - 12.4 fL nRBC 0.1 0.0 - 2.0 /100 WBCs Neutrophils Relative 67.2 40.0 - 80.0 % Lymphocytes Relative 19.3 (L) 20.0 - 40.0 % Monocytes Relative 10.9 (H) 2.0 - 10.0 % Eosinophils Relative 1.8 1.0 - 6.0 % Basophils Relative 0.8 0.0 - 2.0 % Neutrophils Absolute 9.0 (H) 1.8 - 7.0 10*3/uL Lymphocytes Absolute 2.6 1.0 - 4.3 10*3/uL Monocytes Absolute 1.5 (H) 0.0 - 0.8 10*3/uL Eosinophils Absolute 0.2 0.0 - 0.5 10*3/uL Basophils Absolute 0.1 0.0 - 0.2 10*3/uL Protime-INR Result Value Ref Range PROTHROMBIN TIME 10.7 9.0 - 12.0 s INR 1.0 0.9 - 1.1 APTT Result Value Ref Range APTT 27.8 20.0 - 30.[address] abdomen pelvis w contrast Final Result Right psoas and retroperitoneal hemorrhage extending into the previously described large right iliacus hematoma with extension into the anterior compartment of the right thigh. Nonspecific hypoattenuating lesions in the liver. Clinical correlation for liver hematoma/laceration is recommended. Further evaluation with ultrasound or MRI may be obtained as indicated. 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 Correlation with physical exam is recommended. Hepatic steatosis, correlation with LFTs is recommended. Nonspecific enlarged portacaval lymph node. Report Dictated on Electronically Signed By: Uri Bolton MD Electronically Signed Date/Time: 02/09/2023 3:[address] femur right w IV contrast Final Result No acute osseous abnormality of the visualized femur. Large hematoma of the iliacus and anterior compartment of the right thigh in keeping with provided history. No contrast extravasation. No visible aneurysm within constraints of venous phase of imaging. The superior most extent is not visualized and true size is not known. Consider further evaluation with CT of the abdomen/pelvis. CRITICAL TEST RESULT COMMUNICATION: Notification of these findings was made to Dr. Valiente via phone call on 02/09/2023 2:12 PM EDT. Report Dictated on Electronically Signed By: Daniel Pan MD Electronically Signed Date/Time: 02/09/2023 2:14 PM EDT Final ED Course and MDM: In brief, Isidro Smith is a 57 y.o. whose care was signed out to me by the outgoing provider. In brief, patient presented to the emergency department for pain to his right groin right thigh secondary to a known hematoma, was admitted at [facility] and left AMA today. Unfortunately did not have the recombinant factor here at our facility to manage patient's diagnosis. Patient will need to be transferred to [facility], he does not want to return back to [facility]. After several hours here in the emergency department, our attending physician did have discussion with the patient and he is agreeable to return back to [facility]. Dr. Shi spoke to the transfer line to get the patient admitted at [facility]. Patient has pain to palpation to the right thigh and slight swelling of the right compared to the left lower extremity. He has normal DP and PT pulses intact with a brisk capillary refill. Compartments are soft of the lower extremiti (more content not included)... Normal [facility] ED Provider Note Emergency Department Encounter [facility] ED Patient: Isidro Smith : 1965 Date of Evaluation: 02/09/2023 ED Supervising Physician: Frederick Valiente DO I independently examined and evaluated Isidro Smith. This will serve as my Supervisory note as the billing clinician of record and shared attestation. I did perform a substantive portion of the visit including all aspects of the Medical Decision Making. I wore appropriate PPE for the entirety of this encounter. In brief, Isidro Smith is a 57 y.o. male that presents to the emergency department with thigh and groin pain on the right. The patient states he twisted awkwardly earlier this morning which led to the increasing pain. Has a history of hemophilia B, was initially seen and evaluated at the [facility] where they did administer recombinant factor in the emergency room this morning. Patient also was difficult to control his pain pain management was consulted. When the IV narcotics were stopped the patient signed out AGAINST MEDICAL ADVICE this afternoon presented to our facility for evaluation. Focused exam: Alert and oriented ?4, no acute distress, nontoxic appearing, Pulm: clear to auscultation bilaterally, Cardiac: regular rate and rhythm, Abdomen: soft nontender, Neuro: no focal motor or sensory deficits. Moderate amount of edema to right groin and thigh region, compartments are soft, neurovascular intact distally on the right lower extremity, palpable pulses, strength sensation is intact throughout Brief ED course/MDM: Patient presents with a iliopsoas hematoma after twisting awkwardly in his sleep. Hemoglobin initially 14 at [facility]. Patient left AMA when they stop giving him IV narcotics. Patient was given a Percocet in the emergency room and on my evaluation he is comfortably asleep. Immediately when I wake the patient up he is again asking for narcotics. Patient's hemoglobin was 13.5 which is stable from earlier this morning. We will repeat CT scan of his abdomen and femur to assess the hematoma size, likely admit for pain control, hemoglobin trending. Labs Reviewed BASIC METABOLIC PANEL - Abnormal Result Value SODIUM 136 POTASSIUM 3.5 CHLORIDE 101 CARBON DIOXIDE 27 UREA NITROGEN 25 (*) CREATININE 1.00 GLUCOSE 115 (*) CALCIUM 8.5 ANION GAP 8 eGFR 88.3 CBC WITH AUTO DIFFERENTIAL - Abnormal Auto WBC 13.4 (*) RBC 4.12 (*) Hemoglobin 13.5 Hematocrit 41.0 MCV 99.3 (*) MCH 32.7 MCHC 32.9 RDW 14.6 (*) Platelets 482 (*) MPV 7.4 nRBC 0.1 Neutrophils Relative 67.2 Lymphocytes Relative 19.3 (*) Monocytes Relative 10.9 (*) Eosinophils Relative 1.8 Basophils Relative 0.8 Neutrophils Absolute 9.0 (*) Lymphocytes Absolute 2.6 Monocytes Absolute 1.5 (*) Eosinophils Absolute 0.2 Basophils Absolute 0.1 PROTHROMBIN TIME - Normal PROTHROMBIN TIME 10.7 INR 1.0 APTT - Normal APTT 27.8 Narrative: NOTE: The therapeutic time for Heparin anticoagulation, based on Xa activity inhibition, is an APTT of 46-80 seconds. Medications oxyCODONE-acetaminophen (Percocet) 5-325 MG per tablet 1 tablet (1 tablet Oral Given 02/09/23 1230) iopamidol (Isovue-370) 76 % injection 75 mL (75 mL IntraVENous Given 02/09/23 1404) oxyCODONE-acetaminophen (Percocet) 5-325 MG per tablet 1 tablet (1 tablet Oral Given 02/09/23 1450) Critical care time: 0 All diagnostic, treatment, and disposition decisions were made by myself in conjunction with the [facility]. For all further details of the patient's emergency department visit, please see their documentation. (Comment: Please note this report has been produced using speech recognition software and may contain errors related to that system including errors in grammar, punctuation, and spelling, as well as words and phrases that may be inappropriate. If there are any questions or concerns please feel free to contact the dictating provider for clarification.) Frederick Valiente DO [employer] Frederick Valiente DO 02/09/23 1507 [facility] ED Provider Note EMERGENCY DEPARTMENT ENCOUNTER Pt Name: Isidro Smith Birthdate 1965 Date of evaluation: 02/09/2023 ED Provider: Anika Conn PA-C EDcare was supervised by Dr. Valiente who independently examined and evaluated the patient. Please see their attestation note for further details. CHIEF COMPLAINT Chief Complaint Patient presents with Hip Pain HISTORY OF PRESENT ILLNESS (Location/Symptom, Timing/Onset, Context/Setting, Quality, Duration, Modifying Factors, Severity) Note limiting factors. I wore appropriate PPE for the entirety of this encounter. HPI Isidro Smith is a 57 y.o. who presents to the emergency department with concern for worsening thigh pain and hematoma. 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 He said a few days ago he had an injury where he thought that he pulled a muscle in his groin, however now he is noticing worsening pain and swelling of the thigh with concern for new onset hematoma formation. He was seen and evaluated at [facility] earlier today, where he left AMA after he reported that his pain was not adequately controlled. He denies any new recent injury to the area. No chest pain, shortness of breath, or lightheadedness. Denies any numbness, tingling, weakness of the extremity. Nursing Notes were reviewed. Limitations to history: None Outside historians: None REVIEW OF SYSTEMS Review of Systems Constitutional: Negative for chills and fever. HENT: Negative for congestion. Respiratory: Negative for cough and shortness of breath. Cardiovascular: Negative for chest pain. Gastrointestinal: Negative for abdominal pain, nausea and vomiting. Genitourinary: Negative for dysuria and hematuria. Musculoskeletal: Negative for arthralgias and myalgias. Right thigh pain Skin: Negative for color change and rash. Neurological: Negative for dizziness and syncope. Hematological: Negative. All other systems reviewed and are negative. Pertinent positives and negatives as per HPI. PAST MEDICAL HISTORY Past Medical History: Diagnosis Date Alcohol abuse Depression Drug abuse ([facility]) SURGICAL HISTORY Past Surgical History: Procedure Laterality Date ANKLE SURGERY KNEE SURGERY SPLENECTOMY, TOTAL WRIST SURGERY CURRENT MEDICATIONS Previous Medications No medications on file ALLERGIES Codeine and Ciprofloxacin FAMILY HISTORY No family history on file. SOCIAL HISTORY Social History Socioeconomic History Marital status: Tobacco Use Smoking status: Never Smokeless tobacco: Never Substance and Sexual Activity Alcohol use: Not Currently Drug use: Not Currently SCREENINGS Cheikh Coma Scale Best Eye Response: Spontaneous Best Verbal Response: Oriented Best Motor Response: Follows commands Cheikh Coma Scale Score: 15 PHYSICAL EXAM ED Triage Vitals [02/09/23 1130] Temp Heart Rate Resp BP 37.3 ?C (99.1 ?F) 84 20 (!) 154/104 SpO2 Temp Source Heart Rate Source Patient Position 95 % Temporal Monitor -- BP Location FiO2 (%) -- -- Physical Exam Vitals and nursing note reviewed. Constitutional: General: He is not in acute distress. Appearance: He is well-developed. Cardiovascular: Rate and Rhythm: Normal rate and regular rhythm. Pulses: Normal pulses. Heart sounds: Normal heart sounds. Pulmonary: Effort: Pulmonary effort is normal. No respiratory distress. Breath sounds: Normal breath sounds. Abdominal: General: There is no distension. Palpations: Abdomen is soft. Tenderness: There is no abdominal tenderness. There is no guarding or rebound. Musculoskeletal: Comments: Right thigh pain and swelling, R > L. Sensation intact to light touch. Minimal bruising around medial knee. Tender to palpation. DP and PT pulses intact with brisk capillary refill. Skin warm and dry otherwise. Compartments soft. Skin: General: Skin is warm and dry. Capillary Refill: Capillary refill takes less than 2 seconds. Neurological: Mental Status: He is alert and oriented to person, place, and time. Psychiatric: Mood and Affect: Mood normal. Behavior: Behavior normal. DIAGNOSTIC RESULTS RADIOLOGY (Per Emergency Physician): Interpretation per the Radiologist below, if available at the time of this note: CT abdomen pelvis w contrast Final Result Right psoas and retroperitoneal hemorrhage extending into the previously described large right iliacus hematoma with extension into the anterior compartment of the right thigh. Nonspecific hypoattenuating lesions in the liver. Clinical correlation for liver hematoma/laceration is recommended. Further evaluation with ultrasound or MRI may be obtained as indicated. 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 Correlation with physical exam is recommended. Hepatic steatosis, correlat (more content not included)... Normal [facility] Laboratory - Coagulationon 0 02-09-2023 PT Coag (Bld) [Time] 10.7 s 9.0 - 12.0 s [facility] No Panel Informationon 02-09 Interpretation and review of laboratory results [facility] ([facility]ld[facility] [Time]on 02-09 INR Coag (PPP) [Relative time] 1.0 {INR} 0.9 - 1.1 [facility] Comment on above: Recommended Anticoag ulant Therapy: SEE BELOW ----- INR of 2.0 - 3.0 : - Prophylaxis of Venous Thrombosis (high-risk surgery) - Treatment of Venous Thrombosis - Treatment of Pulmonary Embolism (Includes tissue heart valves, Acute Myocardial Infarction to prevent systemic embolism, Valvular Heart Disease, and Atrial Fibrillation) ----- INR of 2.5 - 3.5 : - Mechanical Prosthetic Valves (high risk) - If oral anticoagulant therapy is used to prevent Myocardial Infarction aPTT Coag (Bld) [Time]on aPTT Coag (PPP) [Time] 27.8 s 20.0 - 30.5 s [facility] NOTE: The therapeuti c time for Heparin anticoagulation, based on Xa activity inhibition, is an APTT of 46-80 seconds. [facility] WRIST COMPLETE RTon 11-06-19 WRIST COMPLETE RT [place] [address] Patient: ISIDRO SMITH Phone#: : 1965 Age: 57 Gender: M Pt. Type: ER Account: [id number] Location: [facility] Ordering: MARIO SWIFT Exam Date: 11/05/2022/9:54 Family Phys: Charge Code: [id number] Physician: Jerauld Order #: [id number] Dose#: PROCEDURE: X-RAY WRIST RT COMPLETE MIN 3 VIEWS COMPARISON: None. INDICATIONS: Pain. FINDINGS: BONES: There is joint space loss and subchondral cysts at the scaphotrapeziotrapezoidal joint. No appreciable fracture or subluxation. Overlying splint material somewhat obscures osseous detail. SOFT TISSUES: Soft tissue swelling of the wrist EFFUSION: Possible dorsal joint effusion OTHER: Negative. CONCLUSION: 1. Soft tissue swelling and possible joint effusion at the wrist. 2. Degenerative changes at the scaphotrapezoitrapezoidal joint. Dictated by: Karyn Rivera MD on 11/05/2022 at 9:59 Approved by: Karyn Rivera MD on 11/05/2022 at 10:03 [facility] CBC W Auto Differential pane l (Bld)on 03-08-2021 Basophils (Bld) [#/Vol] 0.05 10*3/uL <0.11 k/uL [facility] Basophils/100 WBC (Bld) 0.6 % [facility] Differential cell count method Nom (Bld) Auto [facility] Eosinophils (Bld) [#/Vol] 0.32 10*3/uL <0.46 k/uL [facility] Eosinophils/100 WBC (Bld) 4.1 % [facility] Erythrocyte distribution width (RBC) [Ratio] 17.0 % High 11.5 - 15.0 % [facility] Hematocrit (Bld) [Volume fraction] 44.0 % 39.0 - 51.0 % [facility] Hemoglobin (Bld) [Mass/Vol] 15.1 g/dL 13.0 - 17.0 g/dL [facility] Lymphocytes (Bld) [#/Vol] 2.93 10*3/uL 1.00 - 4.00 k/uL [facility] Lymphocytes/100 WBC (Bld) 37.2 % [facility] MCH (RBC) [Entitic mass] 31.2 pg 26.0 - 34.0 pg [facility] MCHC (RBC) [Mass/Vol] 34.3 g/dL 30.5 - 36.0 g/dL [facility] MCV (RBC) [Entitic vol] 90.9 fL 80.0 - 100.0 fL [facility] Monocytes (Bld) [#/Vol] 0.83 10*3/uL <0.87 k/uL [facility] Monocytes/100 WBC (Bld) 10.5 % [facility] Neutrophils (Bld) [#/Vol] 3.74 10*3/uL 1.45 - 7.50 k/uL [facility] Neutrophils/100 WBC (Bld) 47.6 % [facility] Platelet mean volume (Bld) [Entitic vol] 9.0 fL 9.0 - 12.7 fL [facility] Platelets (Bld) [#/Vol] 356 10*3/uL 150 - 400 k/uL [facility] RBC (Bld) [#/Vol] 4.84 10*6/uL 4.20 - 6.00 m/uL [facility] WBC (Bld) [#/Vol] 7.87 10*3/uL 3.70 - 11.00 k/uL [facility] Laboratory - Chemistry and C hemistry - challengeon 03-08-2021 Ferritin [Mass/Vol] 72.5 ng/mL 30.3 - 565.7 ng/mL [facility] Iron [Mass/Vol] 189 ug/dL High 41 - 186 ug/dL [facility] Iron binding capacity [Mass/Vol] 374 ug/dL 232 - 386 ug/dL [facility] Iron saturation [Mass fraction] 51 % 15 - 57 % [facility] ED Provider Noteon 1 ED Provider Note I independently eval uated and examined the patient. Patient seen in conjunction with nurse practitioner or physician early childhood assistant or resident physician. Appropriate PPE including n 95, gown, gloves, goggles where worn when appropriate with this patient. I directed all medical decision-making. Patient presents with laceration to his right hand. Kevan right index finger in between the MCP and DIP joint. No numbness or tingling distally normal cap refill. Strength appears to be intact. Dressing is still in place. Tetanus is not current. Patient will need tetanus updated. He will need wound inspection and suturing and detailed neuro and muscle strength exam. This will be done by midlevel. Please see their note. Comment: Please note this report has been produced using speech recognition software and may contain errors related to that system including errors in grammar, punctuation, and spelling, as well as words and phrases that may be inappropriate. If there is any questions or concerns please feel free to contact the dictating provider for clarification. Jonny Monreal MD 02/27/21 1040 [facility] ED Provider Note Emergency Department Encounter [facility] ED Patient: Isidro Smith : 1965 Date of Evaluation: 02/27/2021 ED Provider: SIENNA Noyola EDcare was supervised by Dr. Monreal who independently examined and evaluated the patient. Please see their attestation note for further details. Chief Complaint Chief Complaint Patient presents with ? Laceration [place] (Location/Symptom, Timing/Onset, Context/Setting, Quality, Duration, Modifying Factors, Severity) Note limiting factors. Isidro Smith is a 55 y.o. male who presents to the emergency department complaining of laceration to his right index finger. Patient states that he cut it on a band saw earlier today. Patient states that his tetanus is not up-to-date. Patient states that it occurred just prior to arrival at work. Patient denies any numbness, tingling, lightheadedness, dizziness, chest pain, shortness of breath, abdominal pain, extremity swelling. ROS: Review of Systems 14 systems reviewed and otherwise acutely negative except as in the [place]. Past History Past Medical History: Diagnosis Date ? Alcohol abuse ? Depression ? Drug abuse (HCC) History reviewed. No pertinent surgical history. Social History Socioeconomic History ? Marital status: Spouse name: None ? Number of children: None ? Years of education: None ? Highest education level: None Occupational History ? None Tobacco Use ? Smoking status: Never Smoker ? Smokeless tobacco: Never Used Vaping Use ? Vaping Use: Never used Substance and Sexual Activity ? Alcohol use: Never ? Drug use: Not Currently ? Sexual activity: None Other Topics Concern ? None Social History Narrative ? None Social Determinants of Health Financial Resource Strain: ? Difficulty of Paying Living Expenses: Food Insecurity: ? Worried About Running Out of Food in the Last Year: ? Ran Out of Food in the Last Year: Transportation Needs: ? Lack of Transportation (Medical): ? Lack of Transportation (Non-Medical): Physical Activity: ? Days of Exercise per Week: ? Minutes of Exercise per Session: Stress: ? Feeling of Stress : Social Connections: ? Frequency of Communication with Friends and Family: ? Frequency of Social Gatherings with Friends and Family: ? Attends Religion Services: ? Active Member of Clubs or Organizations: ? Attends Club or Organization Meetings: ? Marital Status: Intimate Partner Violence: ? Fear of Current or Ex-Partner: ? Emotionally Abused: ? Physically Abused: ? Sexually Abused: Medications/Allergies Previous Medications No medications on file No Known Allergies Physical Exam ED Triage Vitals [02/27/21 1033] BP Temp Temp Source Pulse Resp SpO2 Height Weight (!) 144/97 97.2 ?F (36.2 ?C) Temporal 63 16 97 % -- 225 lb (102.1 kg) Physical Exam Constitutional: Appearance: Normal appearance. HENT: Head: Normocephalic and atraumatic. Mouth/Throat: Mouth: Mucous membranes are moist. Eyes: Extraocular Movements: Extraocular movements intact. Pupils: Pupils are equal, round, and reactive to light. Cardiovascular: Rate and Rhythm: Normal rate and regular rhythm. Pulmonary: Effort: Pulmonary effort is normal. No respiratory distress. Breath sounds: No stridor. No wheezing, rhonchi or rales. Abdominal: General: There is no distension. Palpations: Abdomen is soft. There is no mass. Tenderness: There is no abdominal tenderness. There is no guarding. Hernia: No hernia is present. Musculoskeletal: Right wrist: Normal. Right hand: Laceration and tenderness present. Normal range of motion. Normal strength. Normal sensation. Normal capillary refill. Hands: Skin: General: Skin is warm and dry. Capillary Refill: Capillary refill takes less than 2 seconds. Neurological: General: No focal deficit present. Mental Status: He is alert and oriented to person, place, and time. Sensory: No sensory deficit. Motor: No weakness. SCREENINGS Diagnostics Labs: No results found for this visit on 02/27/21. Radiographs: No results found. Procedures/EKG: EKG Per attending note if performed Lac Repair Date/Time: 02/27/2021 12:07 PM Performed by: SIENNA Noyola Authorized by: Jonny Monreal MD Consent: Consent obtained: Verbal Consent given by: Patient Risks discussed: Infection, pain and tendon damage Alternatives discussed: No treatment Anesthesia (see MAR for exact dosages): Anesthesia method: Local infiltration Local anesthetic: Lidocaine 1% w/o epi Laceration details: Location: Finger Finger location: R index finger Length (cm): 2 Depth (mm): 3 Repair type: Repair type: Simple Pre-procedure details: Preparation: Patient was prepped and draped in usual sterile fashion Exploration: Hemostasis achieved with: Direct pressure Wound exploration: wound explored through full range of motion and entire depth of wound probed (more content not included)... Normal [facility] CR Chest Portableon 01-15-20 CR Chest Portable Patient Name: ISIDRO SMITH Diagnostic Radiology ACCESSION EXAM DATE/TIME PROCEDURE ORDERING PROVIDER [id number] 01/14/2021 09:05 EDT CR Chest Portable [id number] HONORIO BAILEY CPT code 86005 Reason For Exam (CR Chest Portable) L shoulder pain, radiating to chest Report CHEST - PORTABLE: CLINICAL INDICATION: Left-sided chest pain. Left-sided shoulder pain. TECHNIQUE: Portable AP COMPARISON: 11/22/2016 FINDINGS/IMPRESSION: Lines, tubes, and devices: None Cardiomediastinal silhouette: Heart size is within normal limits. Slight tortuosity of the thoracic aorta Lungs/Pleura: No consolidation, pleural effusions, or pneumothorax. Borderline pulmonary vascular congestion. Osseous structures/soft tissues: Degenerative spondylosis in the visualized spine. There may be slight widening of the left acromioclavicular joint interval. No soft tissue abnormality is detected. Report Dictated on Final Dictated: 01/14/2021 9:12 am Dictating Physician: MD VERA VLADIMIR Signed Date and Time: 01/14/2021 9:14 am Signed by: MD VERA VLADIMIR Transcribed Date and Time: 01/14/2021 9:12 Normal [facility] CR Shoulder 2+ Views Lefton 01-14-2021 CR Shoulder 2+ Views Left Patient Name: ISIDRO SMITH Diagnostic Radiology ACCESSION EXAM DATE/TIME PROCEDURE ORDERING PROVIDER [id number] 01/14/2021 09:05 EDT CR Shoulder 2+ Views [id number] -HONORIO IVAN Left CPT code 60240 Reason For Exam (CR Shoulder 2+ Views Left) L shoulder pain Report LEFT SHOULDER History: Shoulder pain Findings: Three views of the left shoulder show no acute fracture, dislocation, bone erosion or periosteal reaction. There are small degenerative spurs at the AC joint margin. The glenohumeral joint space is maintained. IMPRESSION: Small marginal spurs. No acute process. Report Dictated on Final Dictated: 01/14/2021 9:11 am Dictating Physician: MD KNOWLES AHMAD Signed Date and Time: 01/14/2021 9:12 am Signed by: MD KNOWLES AHMAD Transcribed Date and Time: 01/14/2021 9:11 Normal [facility] Comp Metabolic Panelon 01-14 ALP [Catalytic activity/Vol] 96 U/L Normal 38-126 [facility] Comment on above: Performed By: #### T TERESE CMP3, HEMDF #### [facility] [address], [place] ALT [Catalytic activity/Vol] 40 U/L Normal 0-49 [facility] Comment on above: Result Comment: The ALT test is performed by an updated assay method. Please note that the reference intervals have been changed and are now sex specific. Performed By: #### T TERESE CMP3, HEMDF #### [place] [address], [place] Calcium [Mass/Vol] 8.9 mg/dL Normal 8.4-10.4 [facility] Comment on above: Performed By: #### T TERESE CMP3, HEMDF #### [place] [address] [place], [place] Glucose [Mass/Vol] 110 mg/dL High 70-100 [facility] Comment on above: Performed By: #### T TERESE CMP3, HEMDF #### [place] [address] [place], [place] Protein [Mass/Vol] 7.5 g/dL Normal 6.3-8.2 [facility] Comment on above: Performed By: #### T TERESE CMP3, HEMDF #### [place] [address] [place], [place] Urea nitrogen [Mass/Vol] 19 mg/dL Normal 7-20 [facility] Comment on above: Performed By: #### T TERESE CMP3, HEMDF #### [place] [address] [place], [place] Anion gap [Moles/Vol] 8 mmol/L Normal 3-13 [facility] Comment on above: Performed By: #### T ROPN, CMP3, HEMDF #### [place] [address] [place], [place] AST [Catalytic activity/Vol] 45 U/L Normal 15-46 [facility] Comment on above: Performed By: #### T KINGSLEYN CMP3, HEMDF #### [place] [address] [place], [place] Bilirubin [Mass/Vol] 0.7 mg/dL Normal 0.2-1.3 [facility] Comment on above: Performed By: #### T IVET GUDINO, HEMDF #### [facility] [address], [place] CO2 [Moles/Vol] 20 mmol/L Low 22-30 [facility] Comment on above: Performed By: #### T IVET GUDINO, HEMDF #### [facility] [address], [place] Creatinine [Mass/Vol] 0.64 mg/dL Normal 0.52-1.25 [facility] Comment on above: Performed By: #### T IVET GUDINO, HEMDF #### [place] [address] [address], [place] eGFR OTHER > 90.0 Normal >60 [facility] Comment on above: Result Comment: KDIG O guidelines provide the following GFR categories: Stage GFR(ml/min/1.73 m2) Terms G1 >=90 Normal or high G2 60-89 Mildly decreased* G3a 45-59 Mildly to moderately decreased G3b 30-44 Moderately to severely decreased G4 15-29 Severely decreased G5 <15 Kidney failure *Relative to young adult level. In the absence of evidence of kidney damage, neither GFR category G1 nor G2 fulfill the criteria for CKD. The CKD-EPI equation is validated in individuals 18 years of age and older. Currently the best equation for estimating glomerular filtration rate (GFR) from serum creatinine in children is the Bedside Wilkerson equation. It is less accurate in patients with extremes of muscle mass, restriction of dietary protein, ingestion of creatine, extra-renal metabolism of creatinine, or treatment with medications that affect renal tubular creatinine secretion. Performed By: #### T IVET GUDINO, HEMDF #### [facility] [address], [place] GFR/1.73 sq M.predicted among blacks MDRD (S/P/Bld) [Vol rate/Area] mL/min/{1.73_m2} Normal >60 [facility] Comment on above: Performed By: #### T IVET GUDINO, HEMDF #### [facility] [address], [place] Chloride [Moles/Vol] 110 mmol/L High 98-107 [facility] Comment on above: Performed By: #### T KENY GUDINO3, HEMDF #### [facility] [address], [place] Potassium [Moles/Vol] 4.4 mmol/L Normal 3.5-5.1 [facility] Comment on above: Performed By: #### T IVET GUDINO, HEMDF #### [facility] [address], [place] Sodium [Moles/Vol] 139 mmol/L Normal 135-145 [facility] Comment on above: Performed By: #### T IVET GUDINO, HEMDF #### [place] [address] [address] [place], [place] Albumin [Mass/Vol] 4.1 g/dL Normal 3.5-5.0 [facility] Comment on above: Performed By: #### T IVET GUDINO, HEMDF #### [place] [address] [place], [place] Complete Urinalysison 2020 Appearance (U) Clear Normal Clear [facility] Comment on above: Result Comment: . Performed By: #### C UA2 #### [place] [address] [place], [place] Bilirubin,Urine Negative Normal Negative [facility] Comment on above: Result Comment: . Performed By: #### C UA2 #### [place] [address] [place], [place] Color (U) Yellow Normal Lt. Yellow [facility] Comment on above: Result Comment: . Performed By: #### C UA2 #### [place] [address] [place], [place] Glucose Ql (U) Normal Normal Normal (<70) [facility] Comment on above: Result Comment: . Performed By: #### C UA2 #### [place] [address] [place], [place] Ketone,Urine Negative Normal Negative [facility] Comment on above: Result Comment: . Performed By: #### C UA2 #### [facility] [address], [place] Leukocytes,Urine Negative Normal Negative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 [facility] PATIENT NAME: [facility]IDRO SIMTH [address] [facility] [address] [facility] REC #: [id number], [place] [address] DEPARTMENT CHART EMERGENCY DEPARTMENT PHYSICIANVS-ROUTINE Time: 01/01/2017 14:51B/P: 91/63 - Left Upper Arm - Lying - Machine Pulse:52 - Monitor Resp: 16Sa02: 95 Room Air 01/01/2017 15:31 KKKVS-Pain Time: 01/01/2017 14:51 Pain Level: 8001/01/2017 15:31 KKKVS-GCS Time: 01/01/2017 14:51 Visual: 4 Verbal: 5 Motor:6 GCS Total: 15 01/01/2017 15:31 KKKVS-HT/WT Time: 01/01/2017 14:51 01/01/2017 15:31 KKKVS-Visual Time: 01/01/2017 14:51 01/01/2017 15:31 KKKVS-FHT Time: 01/01/2017 14:51 01/01/2017 15:31KKKVS-Notes Time: 01/01/2017 14:51 map 73 07/05/771491:31 KKKVS-ROUTINE Time: 01/01/2017 16:51B/P: 94/64 - Left Upper Arm - Lying - Machine Pulse:52 - Monitor Resp: 18Sa02: 94 Room Air 01/01/2017 17:21 KKKVS-Pain Time: 01/01/2017 16:51 Pain Level: 7001/01/2017 17:21 KKKVS-GCS Time: 01/01/2017 16:51 Visual: 4 Verbal: 5 Motor:6 GCS Total: 15 01/01/2017 17:21 KKKVS-HT/WT Time: 01/01/2017 16:51 01/01/2017 17:21 KKKVS-Visual Time: 01/01/2017 16:51 01/01/2017 17:21 KKKVS-FHT Time: 01/01/2017 16:51 01/01/2017 17:21KKKVS-Notes Time: 01/01/2017 16:51 map 73 01/01/201717:21 KKK ORDERS= *Status: Inpatient 01/01/2017 17:13N/AOrdered: 01/01/2017 16:49 By . OtherReviewed: 01/01/2017 17:13 By . OtherEXTERN ORDER: TRO 01/01/2017 14:49NoneOrdered: 01/01/2017 14:49 Completed Time:01/01/2017 14:49 Results Time: 01/01/2017 14:49EKG and most recent EKG 01/01/2017 14:31N/A [facility] PATIENT NAME: ISIDRO SMITH M[address] [facility] [address] Bond MEDICAL REC #: [id number], [place] [address] DEPARTMENT CHART EMERGENCY DEPARTMENT PHYSICIANOrdered: 01/01/2017 14:25 By Elias Flower Time: 01/01/2017 14:31 By Elias Rhodes Time: 01/01/2017 14:29 MEMBLab: Add On Test (excluding POC tests) 01/01/201714:34N/AOrdered: 01/01/2017 14:25 By Elias Rhodes Time: 01/01/2017 14:34 KKKQuestion: Test to be added:Answer: troponinEXTERN ORDER: GFRP 01/01/2017 13:21NoneOrdered: 01/01/2017 13:21 Completed Time:01/01/2017 13:21 Results Time: 01/01/2017 14:30Orthostatic vitals 01/01/2017 14:34N/AOrdered: 01/01/2017 11:48 By Neeraj Khanpleted Time: 01/01/2017 14:34 By Neeraj Alfaro Time: 01/01/2017 14:01 KKKNoted Notes: low bp with laying, notified.IV NS bolus 1L over 30 min 01/01/2017 14:34N/AOrdered: 01/01/2017 11:43 By Neeraj BabcockCompleted Time: 01/01/2017 14:34 By Neeraj Alfaro Time: 01/01/2017 14:01 KKKCBC with diff 01/01/2017 13:14N/AOrdered: 01/01/2017 11:43 By Neeraj Khanpleted Time: 01/01/2017 13:14 By Neeraj Alfaro Time: 01/01/2017 12:34 JJTResults Time: 01/01/2017 14:30BMP 01/01/2017 13:21N/AOrdered: 01/01/2017 11:43 By Neeraj Khanpleted Time: 01/01/2017 13:21 By Neeraj Alfaro Time: 01/01/2017 12:34 JJTResults Time: 01/01/2017 14:30UA ccms (cath if unable to void in 30 mins) 01/01/201713:05 [facility] PATIENT NAME: ISIDRO SMITH M[address] [facility] [address] Bond MEDICAL REC #: [id number], [place] [address] DEPARTMENT CHART EMERGENCY DEPARTMENT PHYSICIANN/AOrdered: 01/01/2017 11:43 By Neeraj BabcockCompleted Time: 01/01/2017 13:05 By Neeraj BabcockNotyazmin Time: 01/01/2017 12:34 JJTQuestion: Lab Urine Specimen TypeAnswer: Clean CatchQuestion: Also Culture, if indicated by UA results (Y or N)Answer: NOResults Time: 01/01/2017 14:30Cardiac monitor 01/01/2017 13:27N/AOrdered: 01/01/2017 11:43 By Neeraj BabcockCompletyazmin Time: 01/01/2017 13:27 By Neeraj Babcock DIS CHARGE Diag nosis: 1. hypotension 01/01/2017 16:49Disposition: Time: 01/01/2017 16:49By: Elias Church Time: 01/01/2017 17:46Type: *Admission to FloorCondition: Stable for admission/discharge/transferaf [facility] emergency evaluation/treatment Category: *NOTAPPLICABLEConcurred: 01/01/2017 17:13 Referral:01/01/2017 16:49Admit To: *Bed Type - TelemetryAdmit Physician: Kerry Hallists ==PRESCRIPTIONS CHAR ES 0.9% NS 1000cc bag QTY @ 1 01/01/2017 14:18 KKKAuto Generated Charge SIGN ATURE Winston Lew EMT-P Heath [place] [facility] PATIENT NAME: ISIDRO SMITH M13[address] Bond MEDICAL REC #: [id number], [place] [address] DEPARTMENT CHART EMERGENCY DEPARTMENT PHYSICIANElias MACEDO [facility]-D SINGHLIAM Babcock PA-C ALB [facility] PATIENT NAME: ISIDRO SMITH M[address] [facility] MEDICAL REC #: [id number], [place] [address] DEPARTMENT CHART EMERGENCY DEPARTMENT PHYSICIAN [facility] ED Documentation This is a preliminar y report only, as the practitioner review and authentication has not occurred. [facility] EKGon 01-01-2017 EKG Procedure Date and T meliton: 01/01/17 1429Test Reason : ROUTINEBlood Pressure : / mmHGVent. Rate : 051 BPM Atrial Rate : 051 BPMP-R Int : 174 ms QRS Dur : 084 msQT Int : 584 ms P-R-T Axes : 061 076 070 degreesQTc Int : 538 msSinus bradycardiaProlonged QTAbnormal ECGWhen compared with ECG of 24-DEC-2016 17:39,QT has lengthenedConfirmed by ORIANA PEREZ A. ([id number]) on 01/01/2017 10:57:18 PMReferred By: Giselle Alfaro Overread By: Cristine PEREZ M.D.FACC CastilloDDandT: 01/01/17 1429TDandT:[facility] PATIENT NAME: ISIDRO SMITH [facility] MEDICAL REC #: [id number], [place] [address] DATE: 01/01/17DISCHARGE DATE:ATTENDING PHY: Giselle Alfaro DOELECTROCARDIOGRAM REPORTCLBcc:[facility] PATIENT NAME: ISIDRO SMITH [address] MEDICAL REC #: [id number], [place] [address] DATE: 01/01/17DISCHARGE DATE:ATTENDING PHY: Giselle Alfaro DOELECTROCARDIOGRAM REPORT Normal [facility] ELECTROCARDIOGRAM REPORT [facility]2017 IF AMER Greater than 60 Normal [facility] Comment on above: Order Comment: Latasha s: Basia Performed By: #### L [id number] ####[facility] [id number] [place], [place] [address]Bh# [phone] IF non-AFR AMER Greater than 60 Normal [facility] Comment on above: Order Comment: Latasha s: M Performed By: #### L [id number] ####[facility] [id number] [place], [place] [address]Ky# [phone] HP.ABELARDO.ADMon 01-01-2017 Admission-H&P Normal [facility] Saxe HP.IMS.ADM [facility] Patient Name: ISIDRO SMITH M13[address] [facility] [address] Date of : [address], [place] [address] Unit Number: [id number] Number: [id number] Patient Status: REG ERAttending Doctor: Luly Garcia,Emergency PhysiciansService Date: 01/01/17 174History of Present IllnessChief Complaint/Present Illness:Low back pain and hypotensionHistory of Present IllnessPatient is a 51-year-old male comes to the emergency room with acute low back pain thatstarted today and hypotension noted by nurse. Patient recently discharged from [facility] December 26 status post GI bleed. Patient had been doing well according to careGIVERat bedside over the last week since his discharge. Patient's blood pressure was normalthis morning but nursing staff noted patient looked clammy this afternoon and uponrechecking his blood pressure it was noted to be hypotensive. Patient complains ofincreased fatigue, dizziness, and low back pain that started today. Denies chest pain,dyspnea, heartburn, abdominal pain, diarrhea, constipation, bloody/tarry stools, anddifficulty voiding. Hemoglobin was stable at 10.8. Echocardiogram done 01/25 showed:Interpretation SummaryLVEF 65-70 % with normal diastolic function.The left ventricular ejection fraction is normal.The right ventricle is normal in size and function.There is mild mitral regurgitation.There is trace tricuspid regurgitation.Right ventricular systolic pressure is normal.The aortic valve is normal in structure and function.Trace pulmonic valvular regurgitation.IVC small in size with normal respiratory variationThere is no pericardial effusion. Remaining ER labs were unremarkable. Patient to beadmitted to telemetry for further evaluation and treatment.Past Medical/Surgical HxPast Medical HistoryHypotension, hemophilia B, GI bleed, chronic anemia, factor IX deficiency, chronic backpain, hepatitis CPast Surgical HistorySplenectomy, subtotal colectomy, repair of wrist fracture, I lateral knee scopesFamily/Social HistoryFamily HistoryFATHER, .MOTHERFamily Hx Other/CommentMother still living, no known health problems.SubstancesReports use of: Alcohol (occasional), Tobacco (0.5 APD). Denies use of: RecreationalDrugs (history of polypharmacy abuse).Social HxCurrently resides at rehabilitation center.Advance DirectivesAdvance Directives Full CodeAllergies/Home MedicationsAllergiesCoded Allergies:CODEINE (11/11/16)QUETIAPINE (From SEROQUEL) (AGITATION 11/24/16)Home MedicationsBuprenorphine HCl* (Subutex tab.sl*) 2 MG TAB.SUBL 2 MG SL QDAY, Ref 0 (Reported)Entered as Reported by KULWINDER MACEDO on 01/01/171732Last Action: Reviewed on 01/01/171741 by KULWINDER MACEDO ACitalopram Hydrobromide* (celeXA 20MG TAB*) 20 MG TABLET 20 MG PO QDAY, Ref 0 (Reported)Entered as Reported by ENA MARTINEZ on 12/23/16119Last Action: Reviewed on 01/01/171741 by KULWINDER MACEDO AGabapentin* (Neurontin 300MG Cap*) 300 MG CAPSULE 600 MG PO TID, Ref 0 (Reported)Entered as Reported by KULWINDER MACEDO on 01/01/171741Last Action: Reviewed on 01/01/171741 by KULWINDER MACEDO AhydrOXYzine PAMOATE* (Vistaril 50MG Cap*) 50 MG CAPSULE 50 MG PO QID, Ref 0 (Reported)Entered as Reported by ENA MARTINEZ on 12/23/161Last Action: Reviewed on 01/01/171741 by KULWINDER MACEDO AOndansetron HCl* (Zofran 4MG Tab*) 4 MG TABLET 4 MG PO Q6HPRN PRN Nausea/Vomiting, Ref 0(Reported)Entered as Reported by ENA MARTINEZ on 12/23/169Last Action: Reviewed on 01/01/171741 by KULWINDER MACEDO APantoprazole* (Protonix 40MG Tab*) 40 MG TABLET.DR 40 MG PO BIDAC, Ref 0 (Reported)Entered as Reported by KULWINDER MACEDO on 01/01/171741Last Action: Reviewed on 01/01/171741 by KULWINDER MACEDO ATiZANidine HCL* (Zanaflex 4MG Tab*) 4 MG TABLET 4 MG PO Q6HPRN PRN MUSCLE PAIN, Ref 0 (Reported)Entered as Reported by KULWINDER MACEDO on 01/01/171731Last Action: Reviewed on 01/01/171741 by KULWINDER MACEDO AReview of SystemsConstitutionalReports: Fatigue. Denies: Fever, Chills, Malaise, Sweats, Weakness.EENTDenies: Vision Change, Vision Problems, Dysphagia, Tinnitus.CardiovascularDenies: Chest Pain, Pain on Exertion, Dyspnea on Exertion, Orthopnea, Syncope, LegSwelling.PulmonaryDenies: Pleuritic Chest Pain, Dyspnea, Cough, Sputum, Wheezing.GastrointestinalDenie s: Abdominal Pain, Nausea, Vomiting, Diarrhea, Constipation, Loss of Appetite.GenitourinaryDenies: Dysuria, Hematuria, Retention, Hesitancy, Urgency.MusculoskeletalDenies: Joint Pain, Joint Swelling, Back Pain.SkinDenies: Leg Swelling, Rash, Swollen Glands.LymphaticDenies: Enlarged Lymph Nodes, Rash.EndocrineReports: Fatigue. Denies: Cold Intolerance, Heat Intolerance, Flushing of Skin.NeuroReports: Dizziness. Denies: Headache, Syncope, Vertigo, Numbness, Weakness, Tingling.PsychiatricDenies: Depression, Anxiety.Physical ExamVital SignsTemperature 90.8, pulse 52, respiration 16, blood pressure 91/63, oxygen saturation 95% onroom airAppearance - PE Awake, Alert, No distress, flat affectNeck - PE Normal inspection, No JVD, Supple, Full range of motionHEENT - PE Head atraumatic, Eyes normal inspection, mucosa dry in appearanceRespiratory - PE Lungs sound clear, Respirations non-labored, Symmetrical expansionCardiovascular - PE Rate WNL, Rhythm regular, Normal heart sounds, Pulses full, equalNeurological - PE Alert, Oriented x 3, No motor deficit, No sensory deficitAdbomen - PE Bowel sounds present, Abdomen soft, Non-tender, No distensionExtremity - PE No vascular compromise, No tenderness, No pedal edema, SymmetricalSkin - PE Color normal, Skin warm, dryConclusion / PlanConclusion1. HypotensionAdmit to telemetry. Hydrate with normal saline at 100 mL an hour. Consult cardiology.2. Acute low back painObtain stat x-ray of lumbar spine to rule out possible abscess.3. History of GI bleedStart Protonix 40 mg by mouth daily.4. History of hemophilia B5. Hepatitis CCollaborating PhysicianCurrGiselle tapia DOExpected Stay More than 2 daysSend copy of the report toCC:No Family Physician givenDisclaimerThis dictation was created using voice recognition software.Phonetic and/or minor grammatical errors may exist.eSign Date and TimeHawthJaneth marie CNP Verified/Reviewed by 01/01/17 1755CGiselle dejesus DO Normal [facility] LUMBAR SPINE 2 OR 3 VWSon LUMBAR SPINE 2 OR 3 VWS LUMBAR SPINE 2 OR 3 VWSOrdering Physician: Janeth CARCAMO Hawthorne01/01/2017 5:44 PMLUMBAR SPINEClinical Statement: Back painFINDINGS: Three views the lumbar spine were obtained and compared toa previous study dated 10/30/2009.The heights of the vertebral bodies are well maintained. There is goodalignment anteriorly and posteriorly. There is mild multileveldegenerative disk disease.IMPRESSION:No acute abnormalities. ---- Electronic Signature on File ----Signed By: Mario Owen MD [email or web address]: 01/01/2017 9:50 PMSigned: 01/01/2017 9:51 PM Reported By: MARIO OWEN M.D. Signed By: MARIO OWEN M.D. Normal [facility] TROPONIN Ion 01-01-2017 Troponin I.cardiac mass conc 0.015 ng/mL Normal 0.000-0.04 5 [facility] Comment on above: Performed By: #### L 300.23153 ####[facility] [id number] [place], [place] [address]Gi# [phone] UA COMPLETEon 01-01-2017 UA APPEARANCE HAZY Normal CLEAR [facility] Comment on above: Order Comment: Campu s: M Performed By: #### L 200.46918 ####[facility] [id number] [place] [address] 33886Qy# [phone] UA BILIRUBIN SMALL Normal NEGATIVE [facility] Comment on above: Order Comment: Campu s: M Result Comment: Icto test not performed. Result not confirmed. Performed By: #### L 200.11690 ####[facility] [id number] [place] [address] 49920Bu# [phone] UA BLOOD Negative Normal NEGATIVE [facility] Comment on above: Order Comment: Campu s: M Performed By: #### L 200.33516 ####[facility] [id number] [place] [address] 67897Pr# [phone] UA COMMENT UA MICROSCOPIC Normal N [facility] Comment on above: Order Comment: Campu s: M Performed By: #### L 200.67467 ####[facility] [id number] [place] [address] 85233Hh# [phone] UA KETONE TRACE Normal NEGATIVE [facility] Comment on above: Order Comment: Campu s: M Performed By: #### L .03377 ####[facility] [id number] [place] [address] 32292Lf# [phone] UA LK ESTERASE TRACE Normal NEGATIVE [facility] Comment on above: Order Comment: Campu s: M Performed By: #### L 200.31320 ####[facility] [id number] [place] [address] 766[address]Hw# [phone] UA NITRITE Negative Normal NEGATIVE [facility] Comment on above: Order Comment: Campu s: M Performed By: #### L 200.05725 ####[facility] [id number] [place] [address] 28807Zk# [phone] UA PH 5.5 Normal 5-6 [facility] Comment on above: Order Comment: Campu s: M Performed By: #### L .70318 ####[facility] FYFVXQZLIO3058 [place], [place] [address]Yg# [phone] UA PROTEIN Negative Normal NEGATIVE [facility] Comment on above: Order Comment: Campu s: M Performed By: #### L 200.47491 ####[facility] [id number] [place], [place] [address]Dn# [phone] UA SPEC GRAV 1.023 Normal 1.005-1.03 0 [facility] Comment on above: Order Comment: Campu s: M Performed By: #### L 200.70005 ####[facility] [id number] [place] [address] 37127Xv# [phone] UA UROBILINOGEN 1.0 MG/DL Normal NORMAL [facility] Comment on above: Order Comment: Campu s: M Performed By: #### L 200.04270 ####[facility] [id number] [place] [address] 42398Ju# [phone] Urine, color DK YELLOW Normal [facility] Comment on above: Order Comment: Campu s: M Performed By: #### L 200.09014 ####[facility] [id number] [place] [address] 76769Tl# [phone] Urine, glucose Negative Normal NORMAL [facility] Comment on above: Order Comment: Campu s: M Performed By: #### L 200.49940 ####[facility] [id number] [place] [address] 988[address]Nm# [phone] UA MICROSCOPICon 01-01-2017 HYALINE CAST 2 /LPF High 0-1 [facility] Comment on above: Order Comment: Campu s: M Performed By: #### L 300.64059 ####[facility] [id number] [place] [address] 28488Ov# [phone] UA WBC 2 WBC/HPF Normal 0-5 [facility] Comment on above: Order Comment: Campu s: M Performed By: #### L 300.66101 ####[facility] [id number] [place] [address] 13161Yy# [phone] Urine, erythrocytes 2 RBC/HPF Normal 0-3 [facility] Comment on above: Order Comment: Campu s: M Performed By: #### L 300.81836 ####[place] [address]39[address]Ph# [phone] CBC W/DIFFon 12-27-2016 ANISO 1+ [facility]: Order Comment: Campu s: M Performed By: #### L 200.87451 ####[place] [address]39[address]Ph# [phone] BASO ABS 0.10 K/CU MM Normal 0-0.2 [facility] Comment on above: Order Comment: Campu s: M Performed By: #### L 200.78630 ####[place] [address]Ph# [phone] Basophils Auto #/vol (Bld) PRESENT Normal [facility] Comment on above: Order Comment: Campu s: M Performed By: #### L 200.28629 ####[place] [address]Ph# [phone] Basophils/100 WBC Auto (Bld) 0.7 % Normal 0-2 [facility] Comment on above: Order Comment: Campu s: M Performed By: #### L 200.82438 ####[facility] [id number] [place], [place] [address]Ph# [phone] EOS ABS 0.60 K/CU MM High 0-0.5 [facility] Comment on above: Order Comment: Campu s: M Performed By: #### L 200.24567 ####[place] [address]39[address]Ph# [phone] Eosinophils/100 leukocytes 5.1 % High 0-5 [facility] Comment on above: Order Comment: Campu s: M Performed By: #### L 200.75571 ####[address] [place], [place] [address]Xj# [phone] WETZEL-JOSUSANY PRESENT Normal [facility] Comment on above: Order Comment: Campu s: M Performed By: #### L .59640 ####[facility] GEIICJHOXV[address] [place], [place] [address]Ph# [phone] IMMATR GRAN ABS 0.40 K/CU MM Normal Less than 2 [facility] Comment on above: Order Comment: Campu s: M Performed By: #### L . ####[facility] [id number] [place], [place] [address]Ph# [phone] IMMATURE GRAN % 3.8 % Normal Less than 2 [facility] Comment on above: Order Comment: Campu s: M Performed By: #### L .31659 ####[place] [address]Ph# [phone] Lymphocytes 5.00 K/CU MM High 0.9-4.4 [facility] Comment on above: Order Comment: Campu s: M Performed By: #### L . ####[place] [address]39[address]Ph# [phone] Lymphocytes/100 leukocytes 43.8 % High 20-40 [facility] Comment on above: Order Comment: Campu s: M Performed By: #### L . ####[facility] [id number] [place], [place] [address]Ph# [phone] MONO ABS 1.30 K/CU MM High 0.1-1.1 [facility] Comment on above: Order Comment: Campu s: M Performed By: #### L . ####[facility] [id number] [place], [place] [address]Ph# [phone] Monocytes/100 leukocytes 11.7 % High 2-10 [facility] Comment on above: Order Comment: Campu s: M Performed By: #### L . ####[facility] [id number] [place], [place] [address]Cv# [phone] Neutrophils 4.00 K/CU MM Normal 2.0-8.3 [facility] Comment [facility] above: Order Comment: Campu s: M Performed By: #### L 200.52825 ####[facility] EKGCHMUGUU5413 [place], [place] [address]Ko# [phone] Neutrophils/100 WBC Auto (Bld) 34.9 % Low 45-75 [facility] Comment on above: Order Comment: Campu s: M Performed By: #### L 200.87756 ####[address] [address]Lv# [phone] PLT EST SLT INCREASED Normal [facility] Comment on above: Order Comment: Campu s: M Performed By: #### L 200.34537 ####[facility] [id number] [place] [address] 967[address]Di# [phone] POIK 1+ Normal [facility] Comment on above: Order Comment: Campu s: M Performed By: #### L 200.07113 ####[facility] [id number] [place] [address] 21[address]Ap# [phone] POLY 1+ Normal [facility] Comment on above: Order Comment: Campu s: M Performed By: #### L 200.64597 ####[facility] [id number] [place] [address] 435[address]Gg# [phone] Erythrocyte distribution width Auto Ratio (RBC) 18.2 % High 11-14.5 [facility] Comment on above: Order Comment: Campu s: M Performed By: #### L 200.14874 ####[facility] [id number] [place] [address] 584[address]Ny# [phone] Erythrocytes (RBC) 0.5 % Normal Less than 1 [facility] Comment on above: Order Comment: Campu s: M Performed By: #### L 200.18753 ####[facility] [id number] [place] [address] 18751Hd# [phone] Erythrocytes (RBC) 3.15 M/CU MM Low 4.50-6.00 [facility] Comment on above: Order Comment: Campu s: M Performed By: #### L 200.89817 ####[facility] BEVGNOJWPN9703 [place], [place] [address]Uk# [phone] Hematocrit (HCT) 29.9 % Low 41.0-53.0 [facility] Comment on above: Order Comment: Campu s: M Performed By: #### L 200.24224 ####[place] [address] [place], [place] [address]Qw# [phone] Hemoglobin mass conc (Bld) 9.9 g/dL Low 13.5-17.5 [facility] Comment on above: Order Comment: Campu s: M Performed By: #### L 200.29047 ####[facility] LNSTYABIYB[address] [place] [address] 10389Dw# [phone] MCHC mass conc (RBC) 33.1 g/dL Normal 32.0-36.0 [facility] Comment on above: Order Comment: Campu s: M Performed By: #### L .76625 ####[facility] HHKKQAFGHV3971 [place], [place] [address]Ru# [phone] MCV 94.9 fL Normal 80.0-99.0 [facility] Comment on above: Order Comment: Campu s: M Performed By: #### L 200.53921 ####[facility] BSPGQLKJAN[address] [place] [address] 480[address]Yz# [phone] Platelet mean volume (PMV) 9.6 fL Normal 9.4-12.4 [facility] Comment on above: Order Comment: Campu s: M Performed By: #### L 200.41000 ####[facility] OOMPLRNFRV[address] [place] [address] 536[address]Bg# [phone] Platelets 490 K/CU MM High 150-450 [facility] Comment on above: Order Comment: Campu s: M Performed By: #### L 200.44320 ####[facility] TIJUTCTACD3414 [place], [place] [address]Uq# [phone] WBC (Leukocytes) 11.5 K/CU MM High 4.5-11.0 [facility] Comment on above: Order Comment: Campu s: M Performed By: #### L 200.07268 ####[facility] JTZICPBKEN6160 [place], [place] [address]Mh# [phone] CARD.Echoon 12-26-2016 CARD.Echo [Embedded Image Not Available][facility] Patient Name: ISIDRO SMITH [id number] [facility] [address] Date of : [address], [place] [address] Unit Number: [id number] Number: [id number] Patient Status: ADM INoAttending Doctor: Madeline Daniel MDService Date: 12/26/16 193EchocardiogramStudy Date: 12/25/16llergies:Coded Allergies:CODEINE (11/11/16)QUETIAPINE (From SEROQUEL) (AGITATION 11/24/16)Summary:[place] [address] [facility] [place], [place] [address]Ngznxzbftoj Cardiac DiagnosticsName: ISIDRO SMITH Study Date: 12/25/2016 01:11 PM BP: 80/55 mmHgMRN: [id number] Patient Location: [facility] HR: 69DOB: 1965 Gender: Male Height: 69 inAge: 51 yrs Weight: 215 lbReason For Study: HYPOTENSIONBSA: 2.1 tgxyxg8Levvzir: HYPOTENSIONInterpretation SummaryLVEF 65-70 % with normal diastolic function.The left ventricular ejection fraction is normal.The right ventricle is normal in size and function.There is mild mitral regurgitation.There is trace tricuspid regurgitation.Right ventricular systolic pressure is normal.The aortic valve is normal in structure and function.Trace pulmonic valvular regurgitation.IVC small in size with normal respiratory variationThere is no pericardial effusion.Left VentricleThe left ventricle is normal in size. There is normal left ventricular wall thickness.LVEF 65-70 % with normal diastolic function. The left ventricular ejection fraction isnormal. No regional wall motion abnormalities noted.Right VentricleThe right ventricle is normal in size and function.AtriaThe left atrium is borderline dilated. Right atrial size is normal.Mitral ValveThe mitral valve is grossly normal. There is no mitral valve stenosis. There is mildmitral regurgitation.Tricuspid ValveThe tricuspid valve is not well visualized, but is grossly normal. There is tracetricuspid regurgitation. Right ventricular systolic pressure is normal.Aortic ValveThe aortic valve is trileaflet. The aortic valve opens well. The aortic valve is normal instructure and function. No hemodynamically significant valvular aortic stenosis.Pulmonic ValveThe pulmonic valve is normal in structure and function. Trace pulmonic valvularregurgitation.Great VesselsThe aortic root is normal size. The pulmonary artery is not well visualized, but isprobably normal size. IVC small in size with normal respiratory variation.Pericardium/PleuralT here is no pericardial effusion.MMode/2D Measurements and CalculationsIVSd: 0.86 cmIVSs: 1.2 cmLVIDd: 5.1 cmLVIDs: 3.0 cmLVPWd: 0.90 cmLVPWs: 1.3 cmFS: 40.1 %EF(Teich): 70.4 %% IVS thick: 42.6 % Ao root diam: 2.3 cmAo root area: 4.2 cm2ACS: 2.1 cmLA dimension: 4.2 cmLVOT diam: 2.0 cmEF(MOD-sp4): 69.5 %Doppler Measurements and CalculationsMV E max devendra: 45.9 cm/secMV A max devendra: 49.4 cm/secMV E/A: 0.93MV max P.1 mmHgMV mean P.0 mmHgMVA(VTI): 4.2 cm2MV P1/2t: 54.8 msecMVA(P1/2t): 4.0 cm2MV dec time: 0.24 secAo V2 max: 156.1 cm/secAo max P.7 mmHgAo mean P.5 mmHgAo V2 VTI: 32.6 cmAVA(I,D): 3.1 cm2AVA(V,D): 2.9 cm2 LV V1 max: 140.7 cm/secLV V1 mean: 105.8 cm/secLV V1 VTI: 31.0 cmMR max devendra: 422.7 cm/secMR max P.5 mmHgMR mean devendra: 317.9 cm/secMR mean P.7 mmHgMR VTI: 125.9 cmPA max P.7 mmHgTR max devendra: 210.8 cm/secTR max P.8 mmHgRVSP(TR): 27.8 mmHg RAP systole: 10.0 mmHg Review ed/Verified By:RAKESH ELIZONDO 12/26/2016 07:29 PMOrdering Physician: LASHON SANTOS MDReferring Physician: MADELINE DANIEL MDPerformed By: 16DisclaimerThis dictation was created using voice recognition software.Phonetic and/or minor grammatical errors may exist.eSign Date and TimePatel,Rakesh Khoury MD Normal [facility] Echocardiogram This is a preliminar y report only, as the practitioner review and authentication has not occurred. Normal [facility] CBC W/DIFFon 12-26-2016 BASO ABS 0.10 K/CU MM Normal 0-0.2 [facility] Comment on above: Order Comment: Campu s: M Performed By: #### L 200.55543 ####[facility] [id number] [place], [place] [address]Jw# [phone] Basophils/100 WBC Auto (Bld) 0.7 % Normal 0-2 [facility] Comment on above: Order Comment: Campu s: M Performed By: #### L 200.91194 ####[facility] DBITPKKLVP[address] [place] [address] 34[address]Ut# [phone] EOS ABS 0.60 K/CU MM High 0-0.5 [facility] Comment on above: Order Comment: Campu s: M Performed By: #### L 200.19274 ####[facility] NMDKGNNWCK[address] [place] [address] 34[address]Qa# [phone] Eosinophils/100 leukocytes 4.6 % Normal 0-5 [facility] Comment on above: Order Comment: Campu s: M Performed By: #### L 200.57394 ####[facility] TVWAXYDMBX1104 [place], [place] [address]Ak# [phone] Erythrocyte distribution width Auto Ratio (RBC) 18.1 % High 11-14.5 [facility] Comment on above: Order Comment: Campu s: M Performed By: #### L 200.23993 ####[facility] PMBFHRPANS[address]16[address] [place] [address] 737[address]Ux# [phone] Erythrocytes (RBC) 3.30 M/CU MM Low 4.50-6.00 [facility] Comment on above: Order Comment: Campu s: M Performed By: #### L 200.70597 ####[facility] [id number] [place] [address] 99[address]Ck# [phone] Erythrocytes (RBC) 0.9 % Normal Less than 1 [facility] Comment on above: Order Comment: Campu s: M Performed By: #### L 200.23759 ####[facility] LNAMDEZXSC7488 [place], [place] [address]Ot# [phone] Hematocrit (HCT) 31.3 % Low 41.0-53.0 [facility] Comment on above: Order Comment: Campu s: M Performed By: #### L 200.13558 ####[facility] [id number] [place] [address] 856[address]Ar# [phone] Hemoglobin mass conc (Bld) 10.3 g/dL Low 13.5-17.5 [facility] Comment on above: Order Comment: Campu s: M Performed By: #### L . ####[address] [address]Tj# [phone] IMMATR GRAN ABS 0.50 K/CU MM Normal Less than 2 [facility] Comment on above: Order Comment: Campu s: M Performed By: #### L 200. ####[facility] LDMQYDVYFV178[address] [place] [address] 19[address]Uk# [phone] IMMATURE GRAN % 4.3 % Normal Less than 2 [facility] Comment on above: Order Comment: Campu s: M Performed By: #### L . ####[facility] [id number] [place] [address] 807[address]Ro# [phone] Lymphocytes 4.80 K/CU MM High 0.9-4.4 [facility] Comment on above: Order Comment: Campu s: M Performed By: #### L 200.69852 ####[facility] WATNHQGJUR[address] [place] [address] 96[address]Ah# [phone] Lymphocytes/100 leukocytes 38.0 % Normal 20-40 [facility] Comment on above: Order Comment: Campu s: M Performed By: #### L 200.91608 ####[facility] [id number] [place], [place] [address]Ph# [phone] MCHC mass conc (RBC) 32.9 g/dL Normal 32.0-36.0 [facility] Comment on above: Order Comment: Campu s: M Performed By: #### L 200.78072 ####[facility] [id number] [place] [address] 76[address]Sd# [phone] MCV 94.8 fL Normal 80.0-99.0 [facility] Comment on above: Order Comment: Campu s: M Performed By: #### L 200.81482 ####[address] [address]Ji# [phone] MONO ABS 1.20 K/CU MM High 0.1-1.1 [facility] Comment on above: Order Comment: Campu s: M Performed By: #### L 200.85470 ####[address] [address]Yb# [phone] Monocytes/100 leukocytes 9.7 % Normal 2-10 [facility] Comment on above: Order Comment: Campu s: M Performed By: #### L 200.28404 ####[address] [address]Um# [phone] Neutrophils 5.40 K/CU MM Normal 2.0-8.3 [facility] Comment on above: Order Comment: Campu s: M Performed By: #### L 200.15624 ####[address] [address]Fo# [phone] Neutrophils/100 WBC Auto (Bld) 42.7 % Low 45-75 [facility] Comment on above: Order Comment: Campu s: M Performed By: #### L 200.89964 ####[facility] [id number] [place] [address] 613[address]Zf# [phone] Platelet mean volume (PMV) 9.5 fL Normal 9.4-12.4 [facility] Comment on above: Order Comment: Campu s: M Performed By: #### L 200.79452 ####[facility] EDXMMVNUKE0942 [place], [place] [address]Rp# [phone] Platelets 467 K/CU MM High 150-450 [facility] Comment on above: Order Comment: Campu s: M Performed By: #### L 200.97647 ####[facility] PBFYZAZFXM2361 [place], [place] [address]Zd# [phone] WBC (Leukocytes) 12.5 K/CU MM High 4.5-11.0 [facility] Comment on above: Order Comment: Campu s: M Performed By: #### L 200.82736 ####[facility] [id number] [place], [place] [address]Xn# [phone] CHEST PA/AP AND LATERALon CHEST PA/AP AND LATERAL CHEST PA/AP & LATERALOrdering Physician: Lashon Santos MD12/26/2016 11:13 AMPA AND LATERAL UPRIGHT CHEST:Clinical Statement: LeukocytosisFINDINGS: There is bilateral subsegmental atelectasis in the mid andlower lungs. Pulmonary vasculature is not congested. There is nopneumothorax. Aeration along the diaphragms is a little better since11/25/2016 with decreased pleural fluid. Heart size and mediastinalcontours are normal.IMPRESSION:Linear atelectasis in the left mid and right lower lung. Pleural fluidand atelectasis along the diaphragms on the previous radiograph hasimproved. ---- Electronic Signature on File ----Signed By: Winston Odell [email or web address]: 12/26/2016 12:19 PMSigned: 12/26/2016 12:21 PM Reported By: WINSTON ODELL M.D. Signed By: WINSTON ODELL M.D. Normal [facility] DISCH.Griceln 12-26-2016 DISCH.[facility] Patient Name: ISIDRO SMITH [facility] Date of : [address] [place] [address] Unit Number: [id number] Number: [id number] Summary Patient Status: ADM INoAttending Doctor: Madeline Daniel MDService Date: 12/26/16 1109Discharge SummaryAdmit Date12/23/16nticipated Discharge Date 12/26/16Final Dx/Problem List1. Hepatitis C2. Factor IX deficiency3. Hepatitis C4. Cellulitis of left forearmReason for Drwwywvnn88-berz-xlo male who was recently discharged from [facility] after evaluation ofsignificant GI bleed apparently brought back to the hospital for evaluation oflightheadedness and dizziness. His HandH is stable. 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 He was started on keflex for cellulitis left forearm. Duplex of the left upperextremity positive acute occlusive DVT. Not a candidate for anticoagulation because ofrecent GI bleed.it will be followed upby Dr. Bowman as an outpatient. Patient wouldneed a repeat duplex of discharge. Advised to call the clinic to make an appointment.Complaining of lightheadedness and dizziness his urinalysis unremarkable. Chest x-ray ispending. Noted patient has always been having having leukocytosis in the range of 12. Nofevers or chills. Tolerating by mouth well. Anxious to be discharged. Echo has beenordered which is pending at the time of dictation. If echo is unremarkable he can bedischarged home pending result of x-ray as well.Hospital CourseUncomplicatedVital SignsVital Signs (Last)ResultDate TimePulse Ez4927/29 0825B/P92/5006/29 0930Cfzi26.806/29 3636Wkokw4605/29 4690Yavi8906/ 0825O2 DeliveryROOM AIR12/25 1935Pertinent Physical FindingsGeneral: Appears well.Awake and alert oriented 3HEENT: Supple. No JVD.CV: Regular rate. No murmur.Pulm: Normal resp effort. CTAB.Abd: Soft. Nontender.Ext: No leg edema or clubbing.Skin: Erythema left upper extremity, resolvedNeuro: Alert. Appropriate. Face symmentric. No focal deficit.Psych: Calm. Normal affect.Consults HematologyLabs/ImagingLab 72hr (CBC/BMP Fishbone)12/26/16 0623:[Embedded Image Not Available]RBC 3.30 L, MCV 94.8, MCHC 32.9, RDW 18.1 H, MPV 9.5, Immature Gran % (Auto) 4.3, AbsImmat Gran (auto) 0.50, Seg Neutrophils % 42.7 L, Lymphocytes % 38.0, Monocytes % 9.7,Eosinophils % 4.6, Basophils % 0.7, Neutrophils # 5.40, Lymphocytes # 4.80 H, Monocytes #1.20 H, Eosinophils # 0.60 H, Basophils # 0.10, Nucleated RBCs 0.906 0430:Ionized Calcium Wummxizll77/28/17 1947:Urine Color YELLOW, Urine Appearance CLEAR, Urine pH 6.0, Ur Specific [place] 1.013, UrineProtein NEGATIVE, Urine Glucose (UA) NEGATIVE, Urine Ketones NEGATIVE, Urine BloodNEGATIVE, Urine Nitrite NEGATIVE, Urine Bilirubin NEGATIVE, Urine Urobilinogen 1.0, UrLeukocyte Esterase NEGATIVE, Urine Comment *12/25/16 1554:[Embedded Image Not Available]RBC 3.23 L, MCV 96.6, MCHC 32.4, RDW 18.5 H, MPV 9.3 L, Seg Neutrophils % 57.0,Lymphocytes % 33.0, Monocytes % 2.0, Eosinophils % 3.0, Basophils % 2.0, Metamyelocytes %3.0, Neutrophils # 8.04, Lymphocytes # 4.65 H, Monocytes # 0.28, Eosinophils # 0.42,Basophils # 0.28 H, Metamyelocytes # 0.42, Nucleated RBCs 1.3, Platelet Estimate ADEQUATE,Polychromasia 1+, Poikilocytosis 1+, Anisocytosis 1+, Ovalocytes 1+12/25/16 1424:Free T4 0.80, Free T3 2.306 0541:[Embedded Image Not Available]12/24/16 1538:Troponin I Less than 0.6623712/24/16 1537:TSH, Ultra Sensitive 5.750 H012/24/16 0426:Factor IX Lczyvuf20/27/17 0426:APTT 39.9 H012/23/16 1742:[Embedded Image Not Available]PrescriptionsStop taking the following medications:QUEtiapine FUMARATE* (Seroquel 100MG Tab*) 100 MG TABLET ORAL AT BEDTIMEContinue taking these medications:tiZANidine HCL (ZANAFLEX) (Zanaflex 4 MG Tablet) 4 MG TABLET4 MILLIGRAM ORAL EVERY 6 HOURS NEEDED as needed for PAINQty = 30Buprenorphine HCl* (Subutex tab.sl*) 2 MG TAB.SUBL2 MILLIGRAM SUBLINGUAL 2 TIMES DAILYQty = 14Gabapentin (Neurontin) (Neurontin Cap) 300 MG [id number] MILLIGRAM ORAL 3 TIMES DAILYQty = 21Pantoprazole* (Protonix 40MG Tab*) 40 MG TABLET.DR40 MILLIGRAM ORAL TWICE A DAY BEFORE MEALSQty = 60Ondansetron HCl* (Zofran 4MG Tab*) 4 MG TABLET4 MILLIGRAM ORAL EVERY 6 HOURS NEEDED as needed for Nausea/VomitingCitalopram Hydrobromide* (celeXA 20MG TAB*) 20 MG IAXDCN25 MILLIGRAM ORAL EVERY DAYhydrOXYzine PAMOATE* (Vistaril 50MG Cap*) 50 MG ESKUAMH20 MILLIGRAM ORAL FOUR TIMES DAILYStart taking the following new medications:Cephalexin (Cephalexin 500MG Capsule) 500 MG HFCYR971 MILLIGRAM ORAL EVERY 12 HOURSQty = 6No RefillsReferralsOrdered ReferralsPrimary Care Provide In Two-Three daysFor Groups:[PCP]Oncology/Hematolog y In One WeekFor Providers:Joana Bowman [id number] [facility] [address] [place] [address] Condition: StableDisposition HomePhys Discharge Time Incur(Min) 33DisclaimerThis dictation was created using voice recognition software.Phonetic and/or minor grammatical errors may exist.eSign Date and TimeSLashon maddox MD [facility] Discharge Summary This is a preliminar y report only, as the practitioner review and authentication has not occurred. [facility] FACTOR IXon 12-26-2016 FACTOR IX 14 % Low 60-177 [facility] Comment on above: Order Comment: Latasha s: Basia Result Comment: Perf ormed At: [facility] [address] [id number] Skinner [id number] Performed By: #### L 200.30273 ####[facility] [id number] [place] [address]Jh# [phone] CBC W/DIFFon 12-25-2016 ANISO 1+ Normal [facility] Comment on above: Order Comment: Campu s: M Performed By: #### L 200.64357 ####[place] [address]Ph# [phone] BASO ABS 0.28 K/CU MM High 0-0.2 [facility] Comment on above: Order Comment: Campu s: M Performed By: #### L 200.10088 ####[place] [address]Ph# [phone] Basophils/100 WBC Auto (Bld) 2.0 % Normal 0-2 [facility] Comment on above: Order Comment: Campu s: M Performed By: #### L 200.56309 ####[address] [address]Pn# [phone] EOS ABS 0.42 K/CU MM Normal 0-0.5 [facility] Comment on above: Order Comment: Campu s: M Performed By: #### L 200.91560 ####[place] [address]Ph# [phone] Eosinophils/100 leukocytes 3.0 % Normal 0-5 [facility] Comment on above: Order Comment: Campu s: M Performed By: #### L 200.18912 ####[facility] [id number] [place] [address]Ua# [phone] Lymphocytes 4.65 K/CU MM High 0.9-4.4 [facility] Comment on above: Order Comment: Campu s: M Performed By: #### L 200.99129 ####[facility] [id number] [place], [place] [address]Ph# [phone] Lymphocytes/100 leukocytes 33.0 % Normal 20-40 [facility] Comment on above: Order Comment: Campu s: M Performed By: #### L 200.72640 ####[facility] [id number] [place], [place] [address]Oa# [phone] META % 3.0 % [facility]: Order Comment: Campu s: M Performed By: #### L 200.25504 ####[facility] [id number] [place] [address]Mg# [phone] META ABS 0.42 K/CU MM Normal [facility] Comment on above: Order Comment: Campu s: M Performed By: #### L 200.35481 ####[address] [address]Va# [phone] MONO ABS 0.28 K/CU MM Normal 0.1-1.1 [facility] Comment on above: Order Comment: Campu s: M Performed By: #### L 200.26061 ####[address] [address]Ta# [phone] Monocytes/100 leukocytes 2.0 % Normal 2-10 [facility] Comment on above: Order Comment: Campu s: M Performed By: #### L 200.92663 ####[address] [address]Ie# [phone] Neutrophils 8.04 K/CU MM Normal 2.0-8.3 [facility] Comment [facility] above: Order Comment: Campu s: M Performed By: #### L 200.26641 ####[facility] [id number] [place] [address]Tf# [phone] Neutrophils/100 WBC Auto (Bld) 57.0 % Normal 45-75 [facility] Comment on above: Order Comment: Campu s: M Performed By: #### L 200.59469 ####[facility] [id number] [place] [address]Dg# [phone] OVALOCYTES 1+ Normal [facility] Comment on above: Order Comment: Campu s: M Performed By: #### L 200.31901 ####[facility] KJRRUXZKRX1579 [place], [place] [address]Yb# [phone] PLT EST ADEQUATE Normal [facility] Comment on above: Order Comment: Campu s: M Performed By: #### L 200.81926 ####[facility] [id number] [place] [address]Vn# [phone] POIK 1+ Normal [facility] Comment on above: Order Comment: Campu s: M Performed By: #### L 200.07218 ####[address] [address]As# [phone] POLY 1+ Normal [facility] Comment on above: Order Comment: Campu s: M Performed By: #### L 200.82524 ####[address] [address]Us# [phone] Erythrocyte distribution width Auto Ratio (RBC) 18.5 % High 11-14.5 [facility] Comment on above: Order Comment: Campu s: M Performed By: #### L 200.73255 ####[address] [address]Ft# [phone] Erythrocytes (RBC) 1.3 % Normal Less than 1 [facility] Comment on above: Order Comment: Campu s: M Performed By: #### L 200.10146 ####[facility] [id number] [place] [address]Dy# [phone] Erythrocytes (RBC) 3.23 M/CU MM Low 4.50-6.00 [facility] Comment on above: Order Comment: Campu s: M Performed By: #### L 200.36617 ####[facility] [id number] [place] [address]Bk# [phone] Hematocrit (HCT) 31.2 % Low 41.0-53.0 [facility] Comment on above: Order Comment: Campu s: M Performed By: #### L 200.27672 ####[facility] CGMOZZRVIU1784 [place], [place] [address]Tu# [phone] Hemoglobin mass conc (Bld) 10.1 g/dL Low 13.5-17.5 [facility] Comment on above: Order Comment: Campu s: M Performed By: #### L 200.78411 ####[facility] [id number] [place] [address]Tp# [phone] MCHC mass conc (RBC) 32.4 g/dL Normal 32.0-36.0 [facility] Comment on above: Order Comment: Campu s: M Performed By: #### L 200. ####[address] [address]Vw# [phone] MCV 96.6 fL Normal 80.0-99.0 [facility] Comment on above: Order Comment: Campu s: M Performed By: #### L 200. ####[address] [address]Hp# [phone] Platelet mean volume (PMV) 9.3 fL Low 9.4-12.4 [facility] Comment on above: Order Comment: Campu s: M Performed By: #### L 200.55626 ####[facility] [id number] [place] [address]Cp# [phone] Platelets 431 K/CU MM Normal 150-450 [facility] Comment on above: Order Comment: Campu s: M Performed By: #### L 200.41790 ####[facility] [id number] [place] [address]Li# [phone] WBC (Leukocytes) 14.1 K/CU MM High 4.5-11.0 [facility] Comment on above: Order Comment: Campu s: M Performed By: #### L 200.01770 ####[facility] [id number] [place], [place] [address]Xs# [phone] on 12-25-2016 Hematocrit (HCT) 31.0 % Low 41.0-53.0 [facility] Comment on above: Order Comment: Johanu s: M Performed By: #### L 200.47048 ####[facility] TVNFYQPFAB4757 [place], [place] [address]Ax# [phone] Hemoglobin mass conc (Bld) 10.2 g/dL Low 13.5-17.5 [facility] Comment on above: Order Comment: Johanu s: M Performed By: #### L 200.41724 ####[facility] OYQMEOUYEW6362 [place], [place] [address]Od# [phone] PROG [facility] 12-25-2016 PROG [facility] Patient Name: ISIDRO SMITH [id number] [facility] Date of : [address] [address] Unit Number: [id number] Number: [id number] Note-Hospitalist Patient Status: ADM INoAttending Doctor: Madeline Daniel MDService Date: 12/25/16 1456Chief ComplaintChief Crcyqdsfj71-vykk-lol male who was recently discharged from [facility] after evaluation ofsignificant GI bleed apparently brought back to the hospital for evaluation oflightheadedness and dizziness. His HandH is stable. 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 He was started on IV Zosyn for cellulitis left forearm.Assessment and PlanConclusion1. Hepatitis C2. Factor IX deficiency3. Hepatitis C4. Cellulitis of left forearmPlanLightheadedness, dizziness will check echocardiogram check EKG check troponin. Patient isnot orthostatic. 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 Normal [facility] T3 FREEon 12-25-2016 Triiodothyronine (T3) free 2.3 pg/mL Normal 2.2-4.0 [facility] Comment on above: Order Comment: Campu s: M Performed By: #### L 500.79753, L500.68204 ####[facility] LPEZNXNZOG9029 [place], [place] [address]Ni# [phone] T4 FREEon 12-25-2016 Thyroxine (T4) free 0.80 ng/dL Normal 0.76-1.46 [facility] Comment on above: Order Comment: Campu s: M Performed By: #### L 500.08094, L500.92988 ####[facility] HWUCAMMPSK2743 [place], [place] [address]Yp# [phone] UA COMPLETEon 12-25-2016 UA APPEARANCE CLEAR Normal CLEAR [facility] Comment on above: Order Comment: Campu s: M Performed By: #### L 200.98011 ####[facility] TIPHREVUAW2153 [place], [place] [address]Qt# [phone] UA BILIRUBIN Negative Normal NEGATIVE [facility] Comment on above: Order Comment: Campu s: M Performed By: #### L 200.44330 ####[facility] ZJLGIEPCKB5512 [place], [place] [address]Xp# [phone] UA BLOOD Negative Normal NEGATIVE [facility] Comment on above: Order Comment: Campu s: M Performed By: #### L 200.44191 ####[facility] CDKYQUKVEG2302 [place], [place] [address]Tk# [phone] UA COMMENT * Normal N [facility] Comment on above: Order Comment: Campu s: M Result Comment: *AMY ROSCOPIC NOT PERFORMED BASED ON CHEMICAL DETERMINATIONS. Performed By: #### L 200.04213 ####[facility] SIOCVHIHYI7870 [place], [place] [address]Fz# [phone] UA KETONE Negative Normal NEGATIVE [facility] Comment on above: Order Comment: Campu s: M Performed By: #### L 200.56436 ####[facility] [id number] [place] [address]Im# [phone] UA LK ESTERASE Negative Normal NEGATIVE [facility] Comment on above: Order Comment: Campu s: M Performed By: #### L 200.89719 ####[facility] HFNQMUBSSX[address] [place] [address]Cl# [phone] UA NITRITE Negative Normal NEGATIVE [facility] Comment on above: Order Comment: Campu s: M Performed By: #### L 200.71468 ####[facility] [id number] [place] [address]Yw# [phone] UA PH 6.0 Normal 5-6 [facility] Comment on above: Order Comment: Campu s: M Performed By: #### L .58435 ####[facility] ENQSUEDLUO[address] [place] [address]Xz# [phone] UA PROTEIN Negative Normal NEGATIVE [facility] Comment on above: Order Comment: Campu s: M Performed By: #### L .33604 ####[facility] OFARPLLRPG[address] [place] [address]Gd# [phone] UA SPEC GRAV 1.013 Normal 1.005-1.03 0 [facility] Comment on above: Order Comment: Campu s: M Performed By: #### L .55608 ####[facility] AZZMMDSLQK[address] [place] [address]Bl# [phone] UA UROBILINOGEN 1.0 MG/DL Normal NORMAL [facility] Comment on above: Order Comment: Campu s: M Performed By: #### L 200.16594 ####[facility] ZIZGVQVTKY[address] [place] [address]Rn# [phone] Urine, color YELLOW Normal [facility] Comment on above: Order Comment: Campu s: M Performed By: #### L .30846 ####[facility] VNGLJNELPZ5743 [place], [place] [address]Oh# [phone] Urine, glucose Negative Normal NORMAL [facility] Comment on above: Order Comment: Latasha s: M Performed By: #### L 200.25978 ####[facility] DWKMIQBWKN0229 [place], [place] [address]Kj# [phone] PROG [facility] 12-24-2016 PROG [facility] Patient Name: ISIDRO SMITH [id number] [facility] Date of : [address], [place] [address] Unit Number: [id number] Number: [id number] Note-Hospitalist Patient Status: ADM INoAttending Doctor: Madeline Daniel MDService Date: 12/24/16 1634Chief ComplaintChief Amvqannhq94-divu-slb male who was recently discharged from [facility] after evaluation ofsignificant GI bleed apparently brought back to the hospital for evaluation oflightheadedness and dizziness. His HandH is stable. 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 He was started on IV Zosyn for cellulitis left forearm.SubjectiveS: (2 ROS minimum)Patient is still complaining of lightheadedness and dizziness with ambulation. Systolicblood pressure in 90s. Patient is not on any antihypertensive medication. He didn't he roman Neurontin though. Denies any chest pain or shortness of breath. His erythema hassignificantly improved. Duplex of the upper extremity reviewed positive for DVT. No planfor anticoagulation because of recent GI bleed per Dr. Bowman.Objective (ROS)Nursing VitalsVital Signs (Last)ResultDate TimeB/P99/5606/27 5185Bjfmh2056/27 1216Pulse Vd4831/27 6586Urzc41.006/27 5198Rage7171/27 1155Physical ExamPhysical Examination NotesGeneral: Appears well.Awake and alert oriented 3HEENT: Supple. No JVD.CV: Regular rate. No murmur.Pulm: Normal resp effort. CTAB.Abd: Soft. Nontender.Ext: No leg edema or clubbing.Skin: Erythema left upper extremity has significantly improved. Per patient. I am seeingthe patient first time today.Neuro: Alert. Appropriate. Face symmentric. No focal deficit.Psych: Calm. Normal affect.Diagnostic Data:Lab 24hr (CBC/BMP Fishbone)12/24/16 1538:Troponin I Less than 0.6567612/24/16 1537:TSH, Ultra Sensitive 5.750 H012/24/16 0426:Factor IX Ilupten23/27/17 0426:APTT 39.9 H012/23/16 1742:[Embedded Image Not Available]Assessment and PlanConclusion1. Hepatitis C2. Factor IX deficiency3. Hepatitis C4. Cellulitis of left forearmPlanLightheadedness, dizziness will check echocardiogram check EKG check troponin. Patient isnot orthostatic. 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 hepatitis CAnxiety depression next FEN history of heroin abuse currently on thyroxine.DisclaimerThis dictation was created using voice recognition software.Phonetic and/or minor grammatical errors may exist.eSign Date and TimeSriLashon mcdaniels MD Verified/Reviewed by 12/24/16 1638 Normal [facility] Progress Note-Hospitalist Normal [facility] PTTon 12-24-2016 aPTT 39.9 s High 22.5-31.4 [facility] Comment on above: Order Comment: Latasha s: M Result Comment: Ther apeutic Heparin Reference Range: High Dose: 56 - 86 seconds (DVT/PE) Low Dose: 50 - 70 seconds (Acute Coronary Syndrome)For low molecular weight heparin or danaparoid, monitoringis often NOT necessary, but the heparin assay, Xa inhibitionassay (send-out) may be used in certain circumstances, asthe PTT is generally insensitive to the effect of theseagents. Direct thrombin inhibitors are becoming more widelyutilized and these drugs are often monitored using the PTT. Performed By: #### L 300.22035 ####[facility] JWUIZDBOJQ0024 [place], [place] [address]Be# [phone] TROPONIN Ion 12-24-2016 Troponin I.cardiac mass conc 0.015 ng/mL Normal 0.000-0.04 5 [facility] Comment on above: Order Comment: Johanu s: M Performed By: #### L 550.94153 ####[facility] ZVGRNFGXEJ4735 [place], [place] [address]Rx# [phone] TSHon 12-24-2016 Thyroid stimulating hormone (TSH) 5.750 UIU/ML High 0.358-3.74 0 [facility] Comment on above: Order Comment: Johanu s: M Result Comment: 3rd generation ultra sensitive TSH Performed By: #### L 500.24832 ####[facility] LGLXGCMKCI4740 [place], [place] [address]Ww# [phone] HHon 12-23-2016 Hematocrit (HCT) 30.6 % Low 41.0-53.0 [facility] Comment on above: Order Comment: Campu s: M Performed By: #### L 200.15925 ####[facility] EQXLNZPTDR5084 [place], [place] [address]Sr# [phone] Hemoglobin mass conc (Bld) 10.4 g/dL Low 13.5-17.5 [facility] Comment on above: Order Comment: Johanu s: M Performed By: #### L 200.11603 ####[facility] [id number] [place], [place] [address]Hh# [phone] VLVDon 12-23-2016 VENOUS DUPLEX REPORT Normal [facility] VASCULAR MEDSTREAMIN G REPORT ----Patient: ISIDRO SMITH [id number] Phy:MR: [id number] for Visit: HYPOTENSIONDate of Service 12/23/16Reading Physician: LEANN Munsonight:Internal jugular vein visualized for comparison.Left:Duplex ultrasound of the left upper extremity from the level of theforearm to the clavicle shows incomplete compressibility withechogenic filling of the brachial and radial veins with acute,occlusive thrombus in the superficial cephalic vein.The axillary and subclavian veins compress normally and have normalflow characteristics.These findings are consistent with acute, occlusive deep veinthrombosis (DVT) involving the brachial and radial veins as well asthe superficial cephalic vein.Conclusions:There is acute, occlusive deep vein thrombosis (DVT) in the rightupper extremity involving the brachial and radial veins as well assuperficial cephalic vein acute, occlusive thrombus.Critical Findings:Positive results called to fifth floor RN Gertrude at 3:30 p.m.CC:Madeline Daniel MDAbbreviated Final Report. Full Report is available via link to [employer] under [facility] Image Viewer. [facility] PATIENT NAME: ISIDRO SMITH [id number] [facility] [address] [facility] REC #: [id number] [address] DATE: 12/23/16DISCHARGE DATE:VENOUS DUPLEX REPORT ATTENDING PHY: Madeline Daniel MDElectronically Signed by: Dmitri West MD Esign Date: 12/23/16 Normal [facility] [place] VLVD VASCULAR MEDSTREAMIN G REPORT ----Patient: ISIDRO SMITHcount [id number] Phy:MR: [id number] for Visit: HYPOTENSIONDate of Service 12/23/16Reading Physician: Dmitri West, MDRight:Internal jugular vein visualized for comparison.Left:Duplex ultrasound of the left upper extremity from the level of theforearm to the clavicle shows incomplete compressibility withechogenic filling of the brachial and radial veins with acute,occlusive thrombus in the superficial cephalic vein.The axillary and subclavian veins compress normally and have normalflow characteristics.These findings are consistent with acute, occlusive deep veinthrombosis (DVT) involving the brachial and radial veins as well asthe superficial cephalic vein.Conclusions:There is acute, occlusive deep vein thrombosis (DVT) in the leftupper extremity involving the brachial and radial veins as well assuperficial cephalic vein acute, occlusive thrombus.Critical Findings:Positive results called to fifth floor RN Gertrude at 3:30 p.m.Amend:Amended by Kaiden Mccray, [facility]:Madeline Daniel MDAbbreviated Final Report. Full Report is available via link to [employer] under [facility] Image Viewer. [facility] PATIENT NAME: ISIDRO SMITH [id number] [facility] [address] MEDICAL REC #: [id number], [place] [address] DATE: 12/23/16DISCHARGE DATE:VENOUS DUPLEX REPORT ATTENDING PHY: Madeline Daniel MDElectronically Signed by: Dmitri West MD Esign Date: 12/24/16 Normal [facility] Vital Signs Date Time Vital Sign Value Performing Clinician Facility 07-15-2023 15:27-0500 Body height 175.3 cm Mary Carmen Seay PA-C Work Phone: [facility] 07-15-2023 15:27-0500 Body weight 104.33 kg Mary Carmen Seay PA-C Work Phone: [facility] 07-05-2023 07:57-0500 Body height 175.26 cm [facility] 07-05-2023 07:57-0500 Body mass index (BMI) [Ratio] 34 kg/m2 [facility] 07-05-2023 07:57-0500 Body temperature 97.6 [degF] [facility] 07-05-2023 07:57-0500 Body weight 104.59 kg [facility] 07-05-2023 07:57-0500 Diastolic blood pressure 78 mm[Hg] [facility] 07-05-2023 07:57-0500 Heart rate 98 /min [facility] 07-05-2023 07:57-0500 Respiratory rate 16 /min [facility] 07-05-2023 07:57-0500 SaO2% (BldA) [Mass fraction] 98 % [facility] 07-05-2023 07:57-0500 Systolic blood pressure 134 mm[Hg] [facility] 04-06-2023 00:00-0400 Diastolic blood pressure 114 mm[Hg] Andreas Salazar MD Work Phone: [facility] 04-06-2023 00:00-0400 Heart rate 95 /min Andreas Salazar MD Work Phone: [facility] 04-06-2023 00:00-0400 Respiratory rate 18 /min Andreas Salazar MD Work Phone: [facility] 04-06-2023 00:00-0400 SaO2% (BldA) [Mass fraction] 95 % Andreas Salazar MD Work Phone: [facility] 04-06-2023 00:00-0400 Systolic blood pressure 186 mm[Hg] Andreas Salazar MD Work Phone: [facility] 04-05-2023 22:10-0400 Body height 175.3 cm Andreas Salazar MD Work Phone: [facility] 04-05-2023 22:10-0400 Body mass index (BMI) [Ratio] 35.44 kg/m2 Andreas Salazar MD Work Phone: [facility] 04-05-2023 22:10-0400 Body temperature 100.51 [degF] Andreas Salazar MD Work Phone: [facility] 04-05-2023 22:10-0400 Body weight 108.86 kg Andreas Salazar MD Work Phone: [facility] 10-07-2023 09:40-0400 Diastolic blood pressure 113 mm[Hg] Jessy Rothman MD Work Phone: [employer] 04-05-2023 09:40-0400 Heart rate 93 /min Jessy Rothman MD Work Phone: [employer] 04-05-2023 09:40-0400 SaO2% (BldA) [Mass fraction] 96 % Jessy Rothman MD Work Phone: [facility] [employer] 04-05-2023 09:40-0400 Systolic blood pressure 168 mm[Hg] Jessy Rothman MD Work Phone: [employer] 04-05-2023 07:49-0400 Body height 175.3 cm Jessy Rothman MD Work Phone: [employer] 04-05-2023 07:49-0400 Body mass index (BMI) [Ratio] 35.44 kg/m2 Jessy Rothman MD Work Phone: [facility] [employer] 04-05-2023 07:49-0400 Body weight 108.86 kg Jessy Rothman MD Work Phone: [employer] 04-05-2023 05:58-0400 Body temperature 98.1 [degF] Jessy Rothman MD Work Phone: [employer] 04-05-2023 05:58-0400 Respiratory rate 22 /min Jessy Rothman MD Work Phone: [employer] 02-09-2023 20:54-0400 Diastolic blood pressure 112 mm[Hg] Frederick Gombash DO Work Phone: [employer] 02-09-2023 20:54-0400 Heart rate 82 /min Frederick Gombash DO Work Phone: [employer] 02-09-2023 20:54-0400 Respiratory rate 20 /min Frederick Gombash DO Work Phone: [employer] 02-09-2023 20:54-0400 SaO2% (BldA) [Mass fraction] 100 % Frederick Gombash DO Work Phone: [facility] 02-09-2023 20:54-0400 Systolic blood pressure 152 mm[Hg] Frederick Valiente DO Work Phone: [facility] 02-09-2023 16:56-0400 Body mass index (BMI) [Ratio] 33.23 kg/m2 Frederick Valiente DO Work Phone: [facility] 02-09-2023 16:56-0400 Body weight 102.06 kg Frederick Valiente DO Work Phone: [facility] 02-09-2023 11:30-0400 Body temperature 99.1 [degF] Frederick Valiente DO Work Phone: [facility] 11-06-2022 13:08-0400 Body temperature 97.3 [degF] [facility] 11-06-2022 13:08-0400 Body weight 105.1 kg [facility] 11-06-2022 13:08-0400 Diastolic blood pressure 104 mm[Hg] [facility] 11-06-2022 13:08-0400 Heart rate 2 /min Bed [facility] 11-06-2022 13:08-0400 Respiratory rate 54 /min [facility] 11-06-2022 13:08-0400 Systolic blood pressure 168 mm[Hg] [facility] 07-31-2022 08:02-0500 Body temperature 97 [degF] Chair Bath Work Phone: [facility] 07-31-2022 08:02-0500 Diastolic blood pressure 123 mm[Hg] Chair [facility] Work Phone: [facility] 07-31-2022 08:02-0500 Heart rate 84 /min Chair [facility] Work Phone: [facility] 07-31-2022 08:02-0500 Respiratory rate 18 /min Chair [facility] Work Phone: [facility] 07-31-2022 08:02-0500 SaO2% (BldA) [Mass fraction] 96 % Chair [facility] Work Phone: [facility] 07-31-2022 08:02-0500 Systolic blood pressure 160 mm[Hg] Chair [facility] Work Phone: [facility] 07-30-2022 10:16-0500 Body weight 105.87 kg Chair [facility] Work Phone: [facility] 07-30-2022 10:16-0500 Diastolic blood pressure 98 mm[Hg] Chair [facility] Work Phone: [facility] 07-30-2022 10:16-0500 Heart rate 80 /min Chair [facility] Work Phone: [facility] 07-30-2022 10:16-0500 Respiratory rate 16 /min Chair [facility] Work Phone: [facility] 07-30-2022 10:16-0500 SaO2% (BldA) [Mass fraction] 98 % Chair [facility] Work Phone: [facility] 07-30-2022 10:16-0500 Systolic blood pressure 144 mm[Hg] Chair [facility] Work Phone: [facility] 04-04-2022 16:04-0400 Body height 170.8 cm Chyna East MD Work Phone: [facility] 04-04-2022 16:04-0400 Body temperature 98.6 [degF] Chyna East MD Work Phone: [facility] 04-04-2022 16:04-0400 Body weight 102.51 kg Chyna East MD Work Phone: [facility] 04-04-2022 16:04-0400 Diastolic blood pressure 101 mm[Hg] Chyna East MD Work Phone: [facility] 04-04-2022 16:04-0400 Heart rate 71 /min Chyna East MD Work Phone: [facility] 04-04-2022 16:04-0400 SaO2% (BldA) [Mass fraction] 97 % Chyna East MD Work Phone: [facility] 04-04-2022 16:04-0400 Systolic blood pressure 138 mm[Hg] Chyna East MD Work Phone: [facility] 03-09-2021 15:26-0400 Body temperature 98.1 [degF] [facility] 03-09-2021 15:26-0400 Diastolic blood pressure 86 mm[Hg] [facility] 03-09-2021 15:26-0400 Heart rate 62 /min [facility] 03-09-2021 15:26-0400 Systolic blood pressure 152 mm[Hg] [facility] 03-08-2021 16:01-0400 Body temperature 98.1 [degF] [facility] 03-08-2021 16:01-0400 Diastolic blood pressure 93 mm[Hg] [facility] 03-08-2021 16:01-0400 Heart rate 60 /min [facility] 03-08-2021 16:01-0400 Systolic blood pressure 144 mm[Hg] [facility] 03-08-2021 15:45-0400 Body weight 103.[address] [facility] 02-27-2021 10:33-0400 Body mass index (BMI) [Ratio] 33.23 kg/m2 Jonny Monreal MD Work Phone: [employer] Work Phone: 02-27-2021 10:33-0400 Body temperature 97.2 [degF] Jonny Monreal MD Work Phone: [facility] Work Phone: 02-27-2021 10:33-0400 Body weight 102.06 kg Jonny Monreal MD Work Phone: [facility] Work Phone: 02-27-2021 10:33-0400 Diastolic blood pressure 97 mm[Hg] Jonny Monreal MD Work Phone: [facility] Work Phone: 02-27-2021 10:33-0400 Heart rate 63 /min Jonny [facility]real MD [facility]: [facility] Work Phone: 02-27-2021 10:33-0400 Respiratory rate 16 /min Jonny Monreal MD Work Phone: [facility] Work Phone: 02-27-2021 10:33-0400 SaO2% (BldA) [Mass fraction] 97 % Jonny Monreal MD Work Phone: [facility] Work Phone: 02-27-2021 10:33-0400 Systolic blood pressure 144 mm[Hg] Jonny Monreal MD Work Phone: [facility] Work Phone: 10-17-2020 12:00-0400 Body height 175.3 cm Chyna East MD Work Phone: [facility] 10-17-2020 12:00-0400 Body temperature 97.5 [degF] Chyna East MD Work Phone: [facility] 10-17-2020 12:00-0400 Body weight 111.68 kg Chyna East MD Work Phone: [facility] 10-17-2020 12:00-0400 Diastolic blood pressure 92 mm[Hg] Chyna East MD Work Phone: [facility] 10-17-2020 12:00-0400 Heart rate 83 /min Chyna East MD Work Phone: [facility] 10-17-2020 12:00-0400 SaO2% (BldA) [Mass fraction] 98 % Chyna East MD Work Phone: [facility] 10-17-2020 12:00-0400 Systolic blood pressure 146 mm[Hg] Chyna East MD Work Phone: [facility] 09-08-2020 09:44-0500 Body weight 104.33 kg [facility] 09-08-2020 09:44-0500 Height 175.3 cm [facility] 09-08-2020 09:44-0500 Respiratory Rate 18 /min [facility] Encounters Encounter Date Encounter Type Care Provider Facility Start: 04-16-2024 Evaluation and manag ement of inpatient ALEXIA ANNE Facility:[id number] Start: 04-15-2024 End: 04-16-2024 Emergency department patient visit Kevin Sanchez Facility:[facility] Start: 04-15-2024 End: 04-15-2024 Telephone encounter Chyna East MD Work Phone: [facility] Comment on above: Question Start: 04-12-2024 End: 04-12-2024 Evaluation and management of inpatient GRAY VANG Facility:[facility] Start: 04-10-2024 End: 04-13-2024 Evaluation and management of inpatient SINGH HAUSER Facility:[facility] Start: 04-10-2024 End: 04-10-2024 Emergency department patient visit No Primary Care Physician Facility:[facility] Start: 04-08-2024 End: 04-08-2024 Emergency department patient visit No Primary Care Physician Facility:[facility] Start: 12-08-2023 End: 12-08-2023 Emergency department patient visit No Primary Care Physician Facility:[facility] Start: 12-04-2023 Emergency department patient visit MARY CARMEN SEAY Facility:[facility] Start: 08-29-2023 End: 08-29-2023 ambulatory MARY CARMEN SEAY Facility:[facility] Start: 08-22-2023 End: 08-22-2023 Patient encounter procedure Mary Carmen Seay PA-C Work Phone: [facility] Plastic Surgery Comment on above: Post-operative state (Primary Dx) Start: 08-22-2023 Telephone encounter Chyna Pedersen MD Work Phone: [facility] Comment on above: Appointment Start: 08-22-2023 End: 08-22-2023 ambulatory MARY CARMEN SEAY Facility:[facility] Start: 08-21-2023 Telephone encounter Chyna Pedersen MD Work Phone: [facility] Hematology/Oncology Start: 08-19-2023 Orders Only Mary Carmen lin PA-C Work Phone: [facility] Comment on above: Post-operative state (Primary Dx) Refill Request; Refi ll Request Start: 08-14-2023 Telephone encounter Kaiden yarbrough MD Work Phone: Plastic Surgery Comment on above: SURGERY ARRIVAL TIME Start: 08-11-2023 Orders Only Kaiden walker MD Work Phone: Plastic Surgery Comment on above: Post-operative state (Primary Dx) Start: 08-11-2023 End: 08-11-2023 Emergency department patient visit MARY CARMEN SEAY Facility:[facility] Start: 08-05-2023 Emergency department patient visit MARY CARMEN SEAY Facility:[facility] Start: 08-05-2023 End: 08-05-2023 Patient encounter procedure Kaiden Perez MD Work Phone: Plastic Surgery Comment on above: Post-operative state (Primary Dx) Start: 08-05-2023 End: 08-05-2023 ambulatory KAIDEN PEREZ Facility:[facility] Start: 07-30-2023 Refill Kaiden walker MD Work Phone: Plastic Surgery Comment on above: Refill Request Start: 07-25-2023 End: 07-25-2023 ambulatory MARY CARMEN SEAY Facility:[facility] Start: 07-23-2023 End: 07-23-2023 ambulatory JAMIN VERMERLYN Facility:[facility] Start: 07-15-2023 End: 07-15-2023 Patient encounter procedure Mary Carmen EL-C Work Phone: [facility] Plastic Surgery Comment on above: Post-operative state (Primary Dx) Start: 07-15-2023 End: 07-15-2023 ambulatory JAMIN VERMERLYN Facility:[facility] Start: 07-10-2023 End: 07-10-2023 ambulatory MARY CARMEN SEAY Facility:[facility] Start: 07-07-2023 End: 07-07-2023 ambulatory KAIDEN PEREZ Facility:[facility] Start: 07-05-2023 End: 07-05-2023 Emergency department patient visit [facility] Work Phone: Start: 07-02-2023 End: 07-02-2023 ambulatory JAMIN MCKNIGHT Facility:[facility] Start: 06-24-2023 End: 06-24-2023 ambulatory MARY CARMEN Fernandez DAWOOD Facility:[facility] Start: 06-24-2023 End: 06-24-2023 Patient encounter procedure Mary Carmen Seay PA-C Work Phone: [facility] Plastic Surgery Comment on above: Post-operative state (Primary Dx) Start: 06-23-2023 Emergency department patient visit MARY CARMEN GODDARDO Facility:[facility] Start: 06-20-2023 End: 06-20-2023 ambulatory MARY CARMEN PATELENTINO Facility:[facility] Start: 06-07-2023 Emergency department patient visit MARY CARMEN SEAY Facility:[facility] Start: 04-08-2023 End: 04-09-2023 Emergency department patient visit ABIMAEL MILAN [facility] Start: 04-08-2023 Telephone encounter Chyna Pedersen MD Work Phone: [facility] Hematology/Oncology Comment on above: Patient Update Start: 04-05-2023 End: 04-06-2023 Emergency department patient visit ANDREAS SALAZAR [facility] Start: 04-05-2023 End: 04-06-2023 Emergency department patient visit Andreas Salazar MD Work Phone: [facility] Comment on above: Arm contusion, left, initial encounter (Primary Dx); Factor IX deficiency (CMS/HCC) (HCC) Start: 04-05-2023 End: 04-05-2023 Emergency department patient visit JESSY ROTHMAN [facility] Start: 04-05-2023 End: 04-05-2023 Emergency department patient visit Jessy Rothman MD Work Phone: [facility] Comment on above: Hemophilia B (CMS/HC C) (HCC) (Primary Dx); Hematoma of arm, left, initial encounter Start: 02-09-2023 End: 02-10-2023 Evaluation and management of inpatient [facility] Start: 02-09-2023 End: 02-09-2023 Evaluation and management of inpatient Frederick Valiente DO Work Phone: [facility] ED Comment on above: Hematoma (Primary Dx ); Hemophilia (CMS/HCC) (HCC) Start: 01-27-2023 Telephone encounter Chyna Pedersen MD Work Phone: [facility] Hematology/Oncology Comment on above: Patient Update Start: 11-06-2022 End: 11-06-2022 Infusion Center Bed 2 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 Start: 11-05-2022 End: 11-05-2022 Emergency department patient visit MARIO Pacheco JAMISNO [facility] Start: 07-31-2022 End: 07-31-2022 Infusion Center Chair 3 [facility] Work Phone: Hematology/Oncology Comment on above: Hemophilia B (HCC) ( Primary Dx); Congenital factor IX disorder (HCC) Start: 07-30-2022 End: 07-30-2022 ambulatory Chair 3 [facility] Work Phone: [facility] Start: 07-30-2022 End: 07-30-2022 Drug abuse prevention management Chyna East MD Work Phone: [facility] Hematology and Oncology Comment on above: Hemophilia B (HCC) ( Primary Dx); History of intravenous drug abuse (HCC) Hemophilia B (HCC) ( Primary Dx); Congenital factor IX disorder (HCC) Start: 07-30-2022 End: 07-30-2022 Patient encounter procedure Chyna East MD Work Phone: [facility] Start: 05-13-2022 Telephone encounter Chyna Pedersen MD Work Phone: [facility] Hematology/Oncology Comment on above: Clinical Update Start: 04-04-2022 End: 04-04-2022 Drug abuse prevention management Chyna East MD Work Phone: [facility] Hematology/Oncology Comment on above: Hemophilia B (HCC) ( Primary Dx); Chronic pain syndrome; History of intravenous drug abuse (HCC) Start: 04-04-2022 End: 04-04-2022 Patient encounter procedure Chyna East MD Work Phone: [facility] Start: 03-01-2022 Telephone encounter Chyna Pedersen MD Work Phone: [facility] Hematology and Oncology Comment on above: Appointment Start: 10-18-2021 Telephone encounter Chyna Pedersen MD Work Phone: [facility] Hematology and Oncology Comment on above: Patient Question Start: 09-27-2021 Telephone encounter Chyna Pedersen MD Work Phone: [facility] Hematology/Oncology Comment on above: Scheduling Start: 04-24-2021 End: 04-24-2021 Patient Outreach Sabiha Keyes RN [employer] Management Comment on above: Transition Of Care ( [facility] Hospital Discharge 04/23/21 Initial Outreach Covid day 1) Start: 03-22-2021 End: 03-22-2021 Telephone encounter Chyna East MD Work Phone: 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 Hematology/Oncology Comment on above: Patient Update Start: 01-08-2021 End: 01-08-2021 Patient Outreach Vianca Mi RN [employer] Sales Consultant Comment on above: Transition Of Care ( Discharged from [facility] 01/07/21) Start: 10-18-2020 End: 10-18-2020 Telephone encounter Chyna East Work Phone: [facility] Hematology/Oncology Comment on above: Results Refill Request Start: 10-17-2020 End: 10-17-2020 ambulatory Chyna East MD Work Phone: [facility] Hematology/Oncology Comment on above: Gastrointestinal hem orrhage with hematemesis (Primary Dx); Acute blood loss anemia; Factor IX hemophilia (HCC) Start: 10-17-2020 End: 10-17-2020 Patient encounter procedure Chyna East MD Work Phone: [facility] Start: 09-21-2020 End: 09-21-2020 Telephone encounter Chyna East Work Phone: [facility] Hematology/Oncology Comment on above: Clinical Update Start: 09-08-2020 End: 09-08-2020 Patient encounter procedure [facility] Work Phone: [facility] Comment on above: Closed fracture of d istal end of left radius with routine healing, unspecified fracture morphology, subsequent encounter (Primary Dx) Start: 04-21-2018 End: 04-21-2018 Telephone encounter Chyna East MD Work Phone: Hematology/Oncology Comment on above: Call Back 48 Hours Start: 01-01-2017 End: 01-02-2017 Evaluation and management of inpatient Giselle Alfaro Facility:[facility] Procedures Date Procedure Procedure Detail Performing Clinician Start: 04-11-2024 Antibody screen MELISSA SEAY Comment on above: Order Comment: Speci men Type: BLOOD SPECIMENOrdering Facility: [facility] Address: [address] [place] [address] Performed By: #### T SCR ####[facility] BLOOD BANKCLIA [id number] [address] OF [place] Start: 06-24-2023 Cul bact xcpt urine blood/stool aerobic isol Mary Carmen Seay PA-C Work Phone: Start: 06-07-2023 Antibody screen MELISSA SEAY Comment on above: Order Comment: Speci men Type: BLOOD SPECIMENOrdering Facility: [facility] Address: [address] [place] [address] Performed By: #### T SCR ####[facility] BLOOD BANKCLIA [id number] [address] [facility] Start: 04-05-2023 Ct upper extremity w/contrast material Sherry Causey PA-C Work Phone: Start: 04-05-2023 Comprehensive metabo lic panel Sherry Causey PA-C Work Phone: Start: 04-05-2023 End: 04-05-2023 Radex shoulder complete minimum 2 views Stephon Ba MD Work Phone: Start: 04-05-2023 Radiologic exam ches t single view Stephon Ba MD Work Phone: Start: 02-09-2023 Ct abdomen & pelvis w/contrast material Frederick Valiente DO Work Phone: Start: 02-09-2023 Ct lower extremity w/contrast material Anika Conn PA-C Work Phone: Start: 02-09-2023 Basic metabolic pane l calcium total Anika Conn PA-C Work Phone: Start: 03-08-2021 Blood count complete auto&auto difrntl wbc Chyna East MD Work Phone: Start: 02-27-2021 LACERATION REPAIR Bhupendra EL Work Phone: Plan of Treatment Date Care Activity Detail Author Start: 02-27-2031 DTaP/Tdap/Td vaccine (2 - Td or Tdap) DTaP/Tdap/Td vaccine (2 - Td or Tdap) [facility] Work Phone: Start: 02-27-2031 DTaP/Tdap/Td Vaccine s (2 - Td or Tdap) DTaP/Tdap/Td Vaccines (2 - Td or Tdap) [facility] Start: 02-27-2031 Urine microalbumin profile [facility] Start: 04-13-2027 Diabetes Screening Diabetes Screenin [facility] Start: 06-23-2026 Diabetes Screening Diabetes Screenin [facility] Start: 02-16-2026 Diabetes Screening Diabetes Screenin g [facility] Start: 10-26-2024 DIABETES SCREEN DIABETES SCREEN [facility] Start: 10-24-2024 DIABETES SCREEN DIABETES SCREEN [facility] Start: 09-04-2024 DIABETES SCREEN DIABETES SCREEN [facility] Start: 04-22-2024 DIABETES SCREEN DIABETES SCREEN [facility] Start: 02-29-2024 Covid-19 Vaccine ( season) Covid-19 Vaccine () [facility] Start: 02-29-2024 Influenza vaccination C [facility] Start: 01-14-2024 DIABETES SCREEN DIABETES SCREEN [facility] Start: 01-06-2024 DIABETES SCREEN DIABETES SCREEN [facility] Start: 10-12-2023 DIABETES SCREEN DIABETES SCREEN [facility] Start: 07-29-2023 DIABETES SCREEN DIABETES SCREEN [facility] Start: 06-30-2023 Behavioral Health Screening Behavioral Health Screening [facility] Start: 06-30-2023 Depression Assessment Depression Ass essment [facility] Start: 05-09-2023 End: 11-07-2023 CBC W Auto Differential panel - Blood CBC + DIFF Lab [facility] Expected: 05/09/2023, Expires: 11/07/2023 [facility] Work Phone: Comment on above: Expected: 05/09/2023 , Expires: 11/07/2023 Start: 05-09-2023 End: 11-07-2023 Ferritin [Mass/volume] in Serum or Plasma FERRITIN BLD Lab Routine [facility] Expected: 05/09/2023, Expires: 11/07/2023 [facility] Comment on above: Expected: 05/09/2023 , Expires: 11/07/2023 Start: 05-09-2023 End: 11-07-2023 Iron and Iron binding capacity panel - Serum or Plasma IRON + TIBC Lab Routine [facility] Expected: 05/09/2023, Expires: 11/07/2023 [facility] Comment on above: Expected: 05/09/2023 , Expires: 11/07/2023 Start: 02-28-2023 Covid-19 Vaccine ( season) Covid-19 Vaccine ( season) [facility] Start: 02-28-2023 Influenza vaccination [facility] Start: 06-30-2022 DEPRESSION ASSESSMENT DEPRESSION ASS ESSMENT [facility] Start: 02-28-2022 Influenza vaccination C [facility] Start: 2021 PROSTATE CANCER SCREENING DISCUSSION PROSTATE CANCER SCREENING DISCUSSION [facility] Start: 2021 Prostate specific antigen measurement Prostate Cancer Screening Discussion [facility] Start: 06-30-2021 DEPRESSION ASSESSMENT DEPRESSION ASS ESSMENT [facility] Start: 02-28-2021 Influenza vaccination C [facility] Start: 02-29-2020 Influenza vaccination INFLUENZA (#1) [facility] Start: 01-22-2017 Pneumococcal vaccination Pneumococcal Vaccine (2 of 2 - PPSV23 or PCV20) [facility] Start: 01-22-2017 Pneumococcal Vaccine : Pediatrics (0 to 5 Years) and At-Risk Patients (6 to 64 Years) (2 - PPSV23 if available, else PCV20) Pneumococcal Vaccine: Pediatrics (0 to 5 Years) and At-Risk Patients (6 to 64 Years) (2 - PPSV23 if available, else PCV20) [facility] Start: 01-22-2017 Pneumococcal Vaccine : Pediatrics (0 to 5 Years) and At-Risk Patients (6 to 64 Years) (2 - PPSV23 or PCV20) Pneumococcal Vaccine: Pediatrics (0 to 5 Years) and At-Risk Patients (6 to 64 Years) (2 - PPSV23 or PCV20) [facility] Start: 2016 Screening for malign ant neoplasm of colon [facility] Start: 2016 Shingles Vaccine (1 of 2) Shingles Vaccine (1 of 2) [facility] Work Phone: Start: 2016 SHINGRIX VACCINE (1 of 2) SHINGRIX VACCINE (1 of 2) [facility] Start: 2016 Zoster Vaccines (1 o f 2) Zoster Vaccines (1 of 2) [facility] Start: 2011 COLOGUARD (FIT-DNA) COLOGUARD (FIT-D NA) [facility] Start: 2011 Colonoscopy COLONOSCOPY [facility] Start: 2011 COLORECTAL CANCER SCREENING COLORECTAL CANCER SCREENING [facility] Start: [address] COLONOGRAPHY [facility] Start: 2011 FECAL OCCULT BLOOD FECAL OCCULT BLOO D [facility] Start: 2011 Screening for malign ant neoplasm of colon [facility] Start: 2011 SIGMOIDOSCOPY SIGMOIDOSCOPY [facility] Start: 2006 Diabetes screen Diabetes screen [facility] Work Phone: Start: 2006 Lipid panel Lipid screen [facility] Work Phone: Start: 2001 Lipid 1996 panel - Serum or Plasma Lipid Screening [facility] Start: 2001 Lipid panel Lipid Screening [facility] Start: 2001 LIPID SCREEN LIPID SCREEN [facility] Start: 1985 Hepatitis A Vaccines (1 of 2 - Risk 2-dose series) Hepatitis A Vaccines (1 of 2 - Risk 2-dose series) [facility] Start: 1985 HEPATITIS B (1 of 3 - Risk 3-dose series) HEPATITIS B (1 of 3 - Risk 3-dose series) [facility] Start: 1985 Hepatitis B Vaccine (1 of 3 - 19+ 3-dose series) Hepatitis B Vaccine (1 of 3 - 19+ 3-dose series) [facility] Start: 1985 Urine microalbumin profile DTAP,TDAP,TD (1 - Tdap) [facility] Start: 1984 Annual PCP Team 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 Start: 1984 HIV screening HIV Screening [facility] Start: 1981 HIV screening HIV screen [facility] Work Phone: Start: 1978 Adult depression screening assessment DEPRESSION SCREENING [facility] Start: 1978 COVID-19 VACCINE (1) COVID-19 VACCIN E (1) [facility] Start: 1976 Meningococcal B Vacc ine (1 of 4 - Increased Risk) Meningococcal B Vaccine (1 of 4 - Increased Risk) [facility] Start: 1971 COVID-19 VACCINE (1) COVID-19 VACCIN E (1) [facility] Start: 1968 Meningococcal Vaccin e (1 - Risk 2-dose series) Meningococcal Vaccine (1 - Risk 2-dose series) [facility] Start: 11-10-1967 HIB Vaccines (1 of 1 - Risk 1-dose series) HIB Vaccines (1 of 1 - Risk 1-dose series) [facility] Start: 1967 HEPATITIS A (1 of 2 - Risk 2-dose series) HEPATITIS A (1 of 2 - Risk 2-dose series) [facility] Start: 1967 MMR Vaccines (1 of 1 - Standard series) MMR Vaccines (1 of 1 - Standard series) [facility] Start: 02-09-1967 COVID-19 VACCINE (#1) COVID-19 VACCI NE (#1) [facility] Start: 1966 HEPATITIS B (1 of 3 - 3-dose series) HEPATITIS B (1 of 3 - 3-dose series) [facility] Start: 1966 Hepatitis B Vaccine (1 of 3 - 3-dose series) Hepatitis B Vaccine (1 of 3 - 3-dose series) [facility] Start: 1966 Hepatitis B Vaccines (1 of 3 - 3-dose series) Hepatitis B Vaccines (1 of 3 - 3-dose series) [facility] Start: 1966 Hepatitis C screening Hepatitis C sc reen [facility] Work Phone: Start: 1966 Lipid panel Lipid Panel [facility] Start: 1966 Screening for malign ant neoplasm of colon [facility] End: 10-17-2021 CBC W Auto Differential panel - Blood CBC + DIFF Lab STAT Gastrointestinal hemorrhage with hematemesis Acute blood loss anemia Once per month for 10 Occurrences starting 10/17/2020 until 10/17/2021, 1 completed [facility] Comment on above: Once per month for 1 0 Occurrences starting 10/17/2020 until 10/17/2021, 1 completed End: 03-07-2022 CBC W Auto Differential panel - Blood CBC + DIFF Lab STAT Acute blood loss anemia (ABLA) Gastrointestinal hemorrhage with hematemesis Once per month for 10 Occurrences starting 03/07/2021 until 03/07/2022, 1 completed [facility] Comment on above: Once per month for 1 0 Occurrences starting 03/07/2021 until 03/07/2022, 1 completed End: 04-05-2023 Factor 9 activity [facility] Work Phone: Comment on above: Once (Lab) for 1 Occ urrences starting 04/05/2023 until 04/05/2023 End: 10-17-2021 FERRITIN BLD FERRITIN BLD Lab Routine Gastrointestinal hemorrhage with hematemesis Acute blood loss anemia Once per month for 10 Occurrences starting 10/17/2020 until 10/17/2021, 1 completed [facility] Comment on above: Once per month for 1 0 Occurrences starting 10/17/2020 until 10/17/2021, 1 completed End: 03-07-2022 FERRITIN BLD FERRITIN BLD Lab Routine Acute blood loss anemia (ABLA) Gastrointestinal hemorrhage with hematemesis Once per month for 10 Occurrences starting 03/07/2021 until 03/07/2022, 1 completed [facility] Comment on above: Once per month for 1 0 Occurrences starting 03/07/2021 until 03/07/2022, 1 completed End: 10-17-2021 IRON + TIBC IRON + TIBC Lab Routine Gastrointestinal hemorrhage with hematemesis Acute blood loss anemia Once per month for 10 Occurrences starting 10/17/2020 until 10/17/2021, 1 completed [facility] Comment on above: Once per month for 1 0 Occurrences starting 10/17/2020 until 10/17/2021, 1 completed End: 03-07-2022 IRON + TIBC IRON + TIBC Lab Routine Acute blood loss anemia (ABLA) Gastrointestinal hemorrhage with hematemesis Once per month for 10 Occurrences starting 03/07/2021 until 03/07/2022, 1 completed [facility] Comment on above: Once per month for 1 0 Occurrences starting 03/07/2021 until 03/07/2022, 1 completed [facility] [employer] Proce dures Routine 02/27/2021 12:07 PM EDT [facility] Work Phone: Patient Education ED Post Op Wou nd Check, General [facility] Work Phone: Patient referral [facility] Work Phone: End: 10-05-2021 Radex wrist complete minimum 3 views XR WRIST GENERAL 3V PA/LAT/OBL LT Radiology Routine Closed fracture of distal end of left radius with routine healing, unspecified fracture morphology, subsequent encounter 1 Occurrences starting 09/05/2020 until 10/05/2021 [facility] Comment on above: 1 Occurrences starti ng 09/05/2020 until 10/05/2021 [facility] Immunizations Immunization Date Immunization Notes Care Provider Gerson yancey 02-27-2021 tetanus toxoid, redu janice diphtheria toxoid, and acellular pertussis vaccine, adsorbed Jonny Monreal MD Work Phone: [facility] 11-27-2016 pneumococcal conjuga te vaccine, 13 valent Chyna East MD Work Phone: [facility] Payers Date Payer Category Payer Self-pay [id number] 2022 Medicaid [id number] 2020 Medicaid [id number] 2020 Medicaid [id number] 2020 Unknown [employer] [id number] 2020-Present [phone] [address] [place] [address] [id number] 2020 Medicaid [employer] MED[employer] ID [employer] MEDICAID [id number] 2020-Present Medicaid [id number] 2019 Private Health Insurance HUMANA HUMANA HMO [id number] 2019-2021 O [id number] 2018 Unknown [facility] [id number] 2018-Present [facility] [id number] 2018 Medicaid MEDICAID [facility] MEDICAID [id number] 2018-2018 Medicaid [id number] 1966 Unknown [id number] Unknown [facility] [id number] Unknown [id number] Unknown [id number] Unknown [id number] Unknown [id number] Unknown [id number] Social History Date Type Detail Facility Start: 11-09-2018 End: 09-08-2020 Tobacco smoking status NJIS Former smoker [facility] End: 10-23-2018 History of tobacco use Current smoker [facility] End: 10-23-2018 History of tobacco use Cigarette Smoker [facility] Start: 09-08-2020 End: 07-23-2023 Cigarettes smoked current (pack per day) - Reported [facility] Start: 09-08-2020 End: 07-03-2023 Tobacco use and exposure Never used [facility] Start: 09-08-2020 End: 07-31-2022 Alcohol intake Current non-drinker of alcohol (finding) [facility] Start: 11-09-2018 Alcohol Comment former heavy d inez; 15 years ago [facility] Start: 1965 Sex Assigned At Not on file C [facility] Start: 09-16-2021 End: 02-09-2023 Exposure to SARS-CoV-2 (event) Not sure [facility] Start: 04-17-2018 End: 07-03-2023 Tobacco smoking status [facility] Current every day smoker [facility] Start: 01-10-2018 Alcohol Comment former heavy drinker [facility] Start: 02-27-2021 Tobacco smoking stat us NHIS Never smoker [employer] Work Phone: Start: 02-27-2021 Alcohol intake Lifetime non-d inez (finding) [employer] Work Phone: Start: 02-27-2021 History SDOH Alcohol Frequency 1 [employer] Work Phone: Start: 03-03-2021 End: 04-05-2023 Alcohol intake Ex-drinker (finding) [facility] [employer] Start: 02-09-2023 End: 07-23-2023 Alcohol Use Disorder Identification Test - Consumption [AUDIT-C] [facility] [employer] How often to you hav e a drink containing alcohol? 2-3 time sa week [facility] How many standard dr inks containing alcohol do you have on a typical day? 3 or 4 [facility] How often do you hav e 6 or more drinks on 1 occasion? Never [facility] How often do you hav e 6 or more drinks on 1 occasion? Less than monthly [facility] How many standard dr inks containing alcohol do you have on a typical day? [facility] not [facility] How hard is it for y ou to pay for the very basics like food, housing, medical care, and heating Not very hard [facility] (I/We) worried arcelia er (my/our) food would run out before (I/we) got money to buy more. Never true [facility] In the past 12 month s, was there a time when you were not able to pay the mortgage or rent on time? No [facility] Start: 07-05-2023 [facility] Start: 1965 Sex Assigned At Male [facility] Start: 07-25-2023 End: 04-11-2024 Alcohol intake Current drinker of alcohol (finding) [facility] Start: 07-03-2023 Alcohol Comment 6 weekly [facility] Medical Equipment Procedure Code Equipment Code Equipment Original Text Equipment Identifier Dates Dressing Bovine Collagen Glycosaminoglycan Polysiloxane 5x4in Biological - [id number] Start: 07-18-2023 Clinical Notes 04-21-2018 to 04-16-2024 Telephone Encounter - Gloria Rouse - 04/15/2024 2:18 PM EDTTelephone Encounter - NasimGloria - 04/15/2024 2:18 PM EDTTelephone Encounter - Chyna Oshea MD - 08/22/2023 4:45 PM EST Note Date & Type Note Facility 04-16-2024 Note HNO ID: [id number] Author: RONY TALAMANTES, RN Service: Nursing Author Type: Registered Nurse Type: Nursing Progress Note Filed: 04/16/2024 17:34 Note Text: Pt is leaving AMA. Dr. Landis notified. [facility] 04-16-2024 Note HNO ID: [id number] Author: ALEXIA FLORENCE LISW Service: Care Management Author Type: Quirk Sander Type: Care Mgt Initial Assessment Filed: 04/16/2024 16:53 Note Text: Summary: Discharge Planning CARE MANAGEMENT: ASSESSMENT AND DISCHARGE PLAN SERVICE DATE: April 16, 2024 SERVICE TIME: 4:45 PM PCP: No primary care provider on file. 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 Do you feel safe around your partner or ex-partner?: Yes Food Insecurity Within the past 12 months, you worried that your food would run out before you got the money to buy more.: Never true Within the past 12 months, the food you bought just didn't last and you didn't have money to get more.: Never true Transportation Needs In the past 12 months, has lack of transportation kept you from medical appointments or from getting medications?: No In the past 12 months, has lack of transportation kept you from meetings, work, or from getting things needed for daily living?: No Housing Stability In the last 12 months, was there a time when you were not able to pay the mortgage or rent on time?: No At any time in the past 12 months, were you homeless or living in a custodial (including now)?: No Utilities In the past 12 months has the electric, gas, oil, or water [employer] threatened to shut off services in your home?: No Social Information Financial Resources: Disabled, Unemployed Current Services/Equipment Current Post-Acute Service(s): None Discharge Planning Patient Goal(s): Be able to go home [place] Explained: [place] of [place] Given: No Reason Not Given: No placements necessary Are you interested in bedside delivery of your medications? No Discharge Planning Participant(s): Patient Patient/Family Comments: Caregiver Assessment: Caregiver is ready, willing and able to meet the patient's needs as recommended by the inter-professional team: Yes Name of Caregiver: sig other Transport at Discharge: Transportation Arrangements: Car Needs Prior to Discharge: Needs Prior to Discharge: To Be Determined Post-Acute Discharge Plan: Pt admitted for CVA concerns, hx of ETOH use. Pt is a/o 2-3. Lives at home with sig other. Independent ADLs, sig other drives. No DME needs. No PCP, but he does see Dr. Day for hematology at [facility]. no insurance. [facility] and [facility] consulted for financial assistance and medicaid application. Pt will likely screen over income for medicaid application. Pt's ETOH use was discussed. Pt stated he has not use for 4 months. However prelim Tox screen on 04/10/24 was positive for substances. Pt awaiting urine Tox screen. He denies [facility] services. He was given a community resource list if he chooses to use it. Pt was encouraged to call [facility] to get established with a PCP under financial assistance. Pt stated he just wants his pain meds and wants to be discharged home as soon as able. Sig other to transport. No cm needs. Will follow if needed. 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 Pt could not stay aroused at time of assessment. Chart reviewed. Pt admitted here as a transfer [facility]. Pt was also recently seen at other hospital location which he left AMA from. Pt admitted for concerns for CVA, hx of ETOH abuse. Per report and chart review pt is independent baseline with ADLs, lives with girl friend, has transportation as needed. No PCP, no insurance. Pt had been approved for [employer] in the past, but now not active. [facility] had also been contacted to screen pt but it seemed that he was over in come. Will contact [facility] and [facility] to screen for new approval as needed. Will attempt to discuss pt's substance use with pt and offer assistance, however it seems that previous cm have discussed this and pt dismisses the issue. D/c plan is TBD. Likely back home with sig other, with sig other to transport. Will follow to complete IA as able. [facility] 04-16-2024 Note HNO ID: [id number] Author: LANI BARRETO RT(R) Service: ? Author Type: Technologist Type: Progress Notes Filed: 04/16/2024 08:01 Note Text: Summary: MRI Radiology Service Progress Note PATIENT NAME: Isidro Smith DATE OF SERVICE: April 16, 2024 TIME: 8:00 AM PATIENT IDENTITY VERIFICATION COMPLETED USING TWO (2) IDENTIFIERS: Name and Date of confirmed by patient verbally and Name and Date of confirmed by identification band. FALL SCREENING: Has the patient had 2 falls in the last year or 1 fall with injury or currently using an Ambulatory Assistive Device (Walker, Cane, Wheelchair, Crutches, etc.)? Inpatient: Screened on floor PATIENT GENDER DATA: Male PATIENT RELEVANT IMPLANT DATA REVIEWED: Yes PATIENT PRESENTS WITH AN IMPLANTABLE OR ATTACHED SENIOR ACCOUNT CLERK: No RADIOLOGY DEPARTMENT: MR; Exam(s) Completed: Head: Routine Brain PERIPHERAL IV DATA: Inpatient: see LDA documentation SIGNED BY: RT Kamryn(R) April 16, 2024 8:00 AM [facility] 04-15-2024 Telephone encount er Note Patient called office today. He states he was in ER and left AMA and questions if he should return to hospital. Patient states his lab values were low but could not say which lab test. Care Everywhere March notes not yet updated. Call unexpectedly disconnected. Will reach back out to patient. [facility] 04-15-2024 Miscellaneous Notes Formattin g of this note might be different from the original. Patient called office today. He states he was in ER and left AMA and questions if he should return to hospital. Patient states his lab values were low but could not say which lab test. Care Everywhere March notes not yet updated. Call unexpectedly disconnected. Will reach back out to patient. documented in this encounter [facility] 04-13-2024 Note [facility] 04-13-2024 Note [facility] 04-13-2024 Note [facility] 04-13-2024 Note [facility] 04-13-2024 Note [facility] 04-13-2024 Note [facility] 04-12-2024 Note [facility] 04-12-2024 Note [facility] 04-12-2024 Note [facility] 04-12-2024 Note [facility] 08-29-2023 Note [facility] 08-22-2023 Telephone encount er Note He still needs a follow up appt as he doesn't make any of his hospital follow ups. [facility] 08-22-2023 Miscellaneous Notes Formattin g of this note might be different from the original. He still needs a follow up appt as he doesn't make any of his hospital follow ups. Isidro called @ 1:15 pm to say he had an appointment with Dr Day this Morning and had car trouble so he didn't make it . Asked if he needed to reschedule but he did not want to stated he was to have an infusion for his blood disorder because he had a tooth pull this morning but the bleeding has stopped now so he didn't need to be seen . Abraham Reich MA documented in this encounter [facility] 08-22-2023 Note [facility] 08-22-2023 History of Presen t illness Narrative Plastic Surgery Postop Note Subjective: Isidro Smith is a 58 year old male who presents 1 week(s) post-op: left arm complex closure wound . Still having pain. There are 2 small areas of wound opening. No bleeding or drainage. ROS: Review of Systems Constitutional: Negative for chills and fever. Skin: Negative for rash. Physical Exam There were no vitals taken for this visit. General Appearance: Well appearing, alert, in no acute distress, well-hydrated, well nourished.. Skin: Skin color, texture, turgor normal, no suspicious rashes or lesions. Neurologic: Gait normal. Reflexes normal and symmetric. Sensation grossly intact.. INCISION: Healing well with 2 small areas of delayed wound healing which appears to be caused by 2 sutures that pulled through the skin, No e/o infection or hematoma. Minimal surrounding erythema Assessment:(Z98.890) Post-operative state (primary encounter diagnosis) Plan: oxyCODONE IR (ROXICODONE) 5 mg immediate release tablet - Continue splint when active - Daily dressing change with Antibiotic ointment - FU 1 week Mary Carmen Seay PA-C documented in this encounter [facility] 08-22-2023 Telephone encount er Note Isidro called @ 1:15 pm to say he had an appointment with Dr Day this Morning and had car trouble so he didn't make it . Asked if he needed to reschedule but he did not want to stated he was to have an infusion for his blood disorder because he had a tooth pull this morning but the bleeding has stopped now so he didn't need to be seen . Abraham Reich MA [facility] 08-21-2023 Miscellaneous Notes Formattin g of this note might be different from the original. Appointment set for tomorrow 0945am, benefix infusion scheduled for 11am, patient aware. Sabrina Alvarez RN Patient called he has an emergency appointment at 11 today with dentist to potentially get tooth pulled. Sabrina Alvarez RN documented in this encounter [facility] 08-15-2023 Note [facility] 08-14-2023 Miscellaneous Notes Formattin g of this note might be different from the original. Isidro notified of arrival time for surgery tomorrow: 10:40AM. NPO after midnight. Pt voices understanding. Encouraged to call with questions or problems. Darlene documented in this encounter [facility] 08-13-2023 Note [facility] 08-13-2023 History of Presen t illness Narrative Plastic Surgery Postop Note Subjective: Isidro Smith is a 58 year old male who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 I wore appropriate PPE for the entirety of this encounter. HPI Isidro Smith is a 57 y.o. who presents to the emergency department with concern for worsening thighpain and hematoma. 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 He said a few days ago he had an injury where he thought that he pulled a muscle in his groin, however now he is noticing worsening pain and swelling of the thigh with concern for new onset hematoma formation. He was seen and evaluated at [facility] earlier today,where he left AMA after he reported that his pain was not adequately controlled. He denies any new recent injury to the area. No chest pain, shortness of breath, or lightheadedness. Denies any numbness, tingling, weakness of the extremity. Nursing Notes were reviewed. Limitations to history: None Outside historians: None REVIEW OF SYSTEMS Review of Systems Constitutional: Negative for chills and fever. HENT: Negative for congestion. Respiratory: Negative for cough and shortness of breath. Cardiovascular: Negative for chest pain. Gastrointestinal: Negative for abdominal pain, nausea and vomiting. Genitourinary: Negative for dysuria and hematuria. Musculoskeletal: Negative for arthralgias and myalgias. Right thigh pain Skin: Negative for color change and rash. Neurological: Negative for dizziness and syncope. Hematological: Negative. All other systems reviewed and are negative. Pertinent positives and negatives as per HPI. PAST MEDICAL HISTORY Past Medical History: Diagnosis Date Alcohol abuse Depression Drug abuse ([facility]) SURGICAL HISTORY Past Surgical History: Procedure Laterality Date ANKLE SURGERY KNEE SURGERY SPLENECTOMY, TOTAL WRIST SURGERY CURRENT MEDICATIONS Previous Medications No medications on file ALLERGIES Codeine and Ciprofloxacin FAMILY HISTORY No family history on file. SOCIAL HISTORY Social History Socioeconomic History Marital status: Tobacco Use Smoking status: Never Smokeless tobacco: Never Substance and Sexual Activity Alcohol use: Not Currently Drug use: Not Currently SCREENINGS Cheikh Coma Scale Best Eye Response: Spontaneous Best Verbal Response: Oriented Best Motor Response: Follows commands Cheikh Coma Scale Score: 15 PHYSICAL EXAM ED Triage Vitals [02/09/23 1130] Temp Heart Rate Resp BP 37.3 C (99.1 F) 84 20 (!) 154/104 SpO2 Temp Source Heart Rate Source Patient Position 95 % Temporal Monitor -- BP Location FiO2 (%) -- -- Physical Exam Vitals and nursing note reviewed. Constitutional: General: He is not in acute distress. Appearance: He is well-developed. Cardiovascular: Rate and Rhythm: Normal rate and regular rhythm. Pulses: Normal pulses. Heart sounds: Normal heart sounds. Pulmonary: Effort: Pulmonary effort is normal. No respiratory distress. Breath sounds: Normal breath sounds. Abdominal: General: There is no distension. Palpations: Abdomen is soft. Tenderness: There is no abdominal tenderness. There is no guarding or rebound. Musculoskeletal: Comments: Right thigh pain and swelling, R > L. Sensation intact to light touch. Minimal bruising around medial knee. Tender to palpation. DP and PT pulses intact with brisk capillary refill. Skinwarm and dry otherwise. Compartments soft. Skin: General: Skin is warm and dry. Capillary Refill: Capillary refill takes less than 2 seconds. Neurological: Mental Status: He is alert and oriented to person, place, and time. Psychiatric: Mood and Affect: Mood normal. Behavior: Behavior normal. DIAGNOSTIC RESULTS RADIOLOGY (Per Emergency Physician): Interpretation per the Radiologist below, if available at the time of this note: CT abdomen pelvis w contrast Final Result Right psoas and retroperitoneal hemorrhage extending into the previously described large right iliacus hematoma with extension into the anterior compartment of the right thigh. Nonspecific hypoattenuating lesions in the liver. Clinical correlation for liver hematoma/laceration is recommended. Further evaluation with ultrasound or MRI may be obtained as indicated. Herniation of a portion of a colonic loop in the patient's ventral abdominal wall hernia without CTevidence of obstruction. Correlation with physical exam is recommended. Hepatic steatosis, correlation with LFTs is recommended. Nonspecific enlarged portacaval lymph node. Report Dictated on Electronically Signed By: Uri Bolton MD Electronically Signed Date/Time: 02/09/2023 3:[address] femur right w IV contrast Final Result No acute osseous abnormality of the visualized femur. Large hematoma of the iliacus and anterior compartment of the right thigh in keeping with provided history. No contrast extravasation. No visible aneurysm within constraints of venous phase of imaging. The superior most extent is not visualized and true size is not known. Consider further evaluation with CT of the abdomen/pelvis. CRITICAL TEST RESULT COMMUNICATION: Notification of these findings was made to Dr. Valiente via phone call on 02/09/2023 2:12 PM EDT. Report Dictated on Electronically Signed By: Daniel Pan MD Electronically Signed Date/Time: 02/09/2023 2:14 PM EDT LABS: Labs Reviewed BASIC METABOLIC PANEL - Abnormal Result Value SODIUM 136 POTASSIUM 3.5 CHLORIDE 101 CARBON DIOXIDE 27 UREA NITROGEN 25 (*) CREATININE 1.00 GLUCOSE 115 (*) CALCIUM 8.5 ANION GAP 8 eGFR 88.3 CBC WITH AUTO DIFFERENTIAL - Abnormal Auto WBC 13.4 (*) RBC 4.12 (*) Hemoglobin 13.5 Hematocrit 41.0 MCV 99.3 (*) MCH 32.7 MCHC 32.9 RDW 14.6 (*) Platelets 482 (*) MPV 7.4 nRBC 0.1 Neutrophils Relative 67.2 Lymphocytes Relative 19.3 (*) Monocytes Relative 10.9 (*) Eosinophils Relative 1.8 Basophils Relative 0.8 Neutrophils Absolute 9.0 (*) Lymphocytes Absolute 2.6 Monocytes Absolute 1.5 (*) Eosinophils Absolute 0.2 Basophils Absolute 0.1 PROTHROMBIN TIME - Normal PROTHROMBIN TIME 10.7 INR 1.0 APTT - Normal APTT 27.8 Narrative: NOTE: The therapeutic time for Heparin anticoagulation, based on Xa activity inhibition, is an APTTof 46-80 seconds. All other labs were within normal range or not returned as of this dictation. EMERGENCY DEPARTMENT COURSE and DIFFERENTIAL DIAGNOSIS/MDM: Vitals: Vitals: 02/09/23 1130 02/09/23 1432 BP: (!) 154/104 (!) 160/101 Pulse: 84 79 Resp: 20 22 Temp: 37.3 C (99.1 F) TempSrc: Temporal SpO2: 95% 95% Medications acetaminophen (Tylenol) tablet 650 mg (has no administration in time range) Or acetaminophen (Tylenol) suppository 650 mg (has no administration in time range) ondansetron ODT (Zofran-ODT) disintegrating tablet 4 mg (has no administration in time range) Or ondansetron (Zofran) injection 4 mg (has no administration in time range) polyethylene glycol (PEG) 3350 (Miralax) packet 17 g (has no administration in time range) HYDROmorphone (Dilaudid) injection 0.5 mg (has no administration in time range) oxyCODONE-acetaminophen (Percocet) 5-325 MG per tablet 1 tablet (has no administration in time range) oxyCODONE-acetaminophen (Percocet) 5-325 MG per tablet 1 tablet (1 tablet Oral Given 02/09/23 1230) iopamidol (Isovue-370) 76 % injection 75 mL (75 mL IntraVENous Given 02/09/23 1404) oxyCODONE-acetaminophen (Percocet) 5-325 MG per tablet 1 tablet (1 tablet Oral Given 02/09/23 1450) MDM elements: The patient presented with chief complaint of hip and thigh pain secondary to known hematoma. Patient has a history of hemophilia B. [facility] where he wasbeing [facility] for this. On my exam he is alert, oriented, no acute distress. Vital signs are stableand unremarkable. Noted some swelling of the right thigh in comparison to the left. Neurovascular intact otherwise with no further evidence of injury or trauma. The differential diagnosis associated with this patient's presentation includes hematoma. Our workup consisted of ordering/reviewing: CBC with leukocytosis of 13, hemoglobin stable at 13.5.aPTT and PT/INR unremarkable. BMP with nonspecific changes. CT abdomen pelvis as well as CT femur obtained which demonstrates known psoas, retroperitoneal hemorrhage extending into the right iliac us. Patient provided with pain control per her request. I spoke with hematology and oncology in regards to this patient's presentation, they advise continued with competent factor IX, twice daily. We will plan to consult and evaluate patient tomorrow. Will admit for further evaluation and treatment. I discussed their care with [facility] oncology. The patient will be Admitted. Patient is in agreement with this plan. PROCEDURES: Unless otherwise noted below, none Procedures CRITICAL CARE TIME FINAL IMPRESSION 1. Hematoma 2. Hemophilia ([facility]) ([facility]) DISPOSITION Admit 02/09/2023 04:48:34 PM PATIENT REFERRED TO: No follow-up provider specified. DISCHARGE MEDICATIONS: New Prescriptions No medications on file (Comment: Please note this report has been produced using speech recognition software and may contain errors related to that system including errors in grammar, punctuation, and spelling, as well as words and phrases that may be inappropriate. If there are any questions or concerns please feel freeto contact the dictating provider for clarification.) Anika Conn PA-C (electronically signed) Emergency Medicine Provider Anika Conn PA-C 02/09/23 1653 * Frederick Valiente DO - 02/09/2023 11:27 AM EDT Emergency Department Encounter [facility] ED Patient: Isidro Smith : 1965 Date of Evaluation: 02/09/2023 ED Supervising Physician: Frederick Valiente DO I independently examined and evaluated Isidro Smith. This will serve as my Supervisory note as the billing clinician of record and shared attestation. Idid perform a substantive portion of the visit including all aspects of the Medical Decision Making. I wore appropriate PPE for the entirety of this encounter. In brief, Isidro Smith is a 57 y.o. male that presents to the emergency department with thigh and groin pain on the right. The patient states he twisted awkwardly earlier this morning which led to the increasing pain. Has a history of hemophilia B, was initially seen and evaluated at the [facility] where they did administer recombinant factor in the emergency room this morning. Patient alsowas difficult to control his pain pain management was consulted. When the IV narcotics were stoppedthe patient signed out AGAINST MEDICAL ADVICE this afternoon presented to our facility for evaluation. Focused exam: Alert and oriented 4, no acute distress, nontoxic appearing, Pulm: clear to auscultation bilaterally, Cardiac: regular rate and rhythm, Abdomen: soft nontender, Neuro: no focal motor orsensory deficits. Moderate amount of edema to right groin and thigh region, compartments are soft, neurovascular intact distally on the right lower extremity, palpable pulses, strength sensation is intact throughout Brief ED course/MDM: Patient presents with a iliopsoas hematoma after twisting awkwardly in his sleep. Hemoglobin initially 14 at [facility]. Patient left AMA when they stop giving him IVnarcotics. Patient was given a Percocet in the emergency room and on my evaluation he is comfortably asleep. Immediately when I wake the patient up he is again asking for narcotics. Patient's hemoglobin was 13.5 which is stable from earlier this morning. We will repeat CT scan of his abdomen and femur to assess the hematoma size, likely admit for pain control, hemoglobin trending. Labs Reviewed BASIC METABOLIC PANEL - Abnormal Result Value SODIUM 136 POTASSIUM 3.5 CHLORIDE 101 CARBON DIOXIDE 27 UREA NITROGEN 25 (*) CREATININE 1.00 GLUCOSE 115 (*) CALCIUM 8.5 ANION GAP 8 eGFR 88.3 CBC WITH AUTO DIFFERENTIAL - Abnormal Auto WBC 13.4 (*) RBC 4.12 (*) Hemoglobin 13.5 Hematocrit 41.0 MCV 99.3 (*) MCH 32.7 MCHC 32.9 RDW 14.6 (*) Platelets 482 (*) MPV 7.4 nRBC 0.1 Neutrophils Relative 67.2 Lymphocytes Relative 19.3 (*) Monocytes Relative 10.9 (*) Eosinophils Relative 1.8 Basophils Relative 0.8 Neutrophils Absolute 9.0 (*) Lymphocytes Absolute 2.6 Monocytes Absolute 1.5 (*) Eosinophils Absolute 0.2 Basophils Absolute 0.1 PROTHROMBIN TIME - Normal PROTHROMBIN TIME 10.7 INR 1.0 APTT - Normal APTT 27.8 Narrative: NOTE: The therapeutic time for Heparin anticoagulation, based on Xa activity inhibition, is an APTTof 46-80 seconds. Medications oxyCODONE-acetaminophen (Percocet) 5-325 MG per tablet 1 tablet (1 tablet Oral Given 02/09/23 1230) iopamidol (Isovue-370) 76 % injection 75 mL (75 mL IntraVENous Given 02/09/23 1404) oxyCODONE-acetaminophen (Percocet) 5-325 MG per tablet 1 tablet (1 tablet Oral Given 02/09/23 1450) Critical care time: 0 All diagnostic, treatment, and disposition decisions were made by myself in conjunction with the [facility]. For all further details of the patient's emergency department visit, please see their documentation. (Comment: Please note this report has been produced using speech recognition software and may contain errors related to that system including errors in grammar, punctuation, and spelling, as well as words and phrases that may be inappropriate. 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 * Risa Dunham RN - 02/09/2023 11:27 AM EDT Bed: 04 Expected date: Expected time: Means of arrival: Comments: Risa Dunham RN 02/09/23 1132 documented in this [facility]08-13-2023 Emergency department Note* Andreas Jones RN - 02/09/2023 10:00 PM EDT Report to [facility] at [facility] room 4232. Physicians private transport contacted with ETA of 2330. Chart printed/ disc will be sent . 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 [id number] Phys[facility] Emergency department Note* Anika Conn PA-C - 02/09/2023 11:27 AM EDT EMERGENCY DEPARTMENT ENCOUNTER Pt Name: Isidro Smith Birthdate 1965 Date of evaluation: 02/09/2023 ED Provider: Anika Conn PA-C EDcare was supervised by Dr. Valiente who independently examined and evaluated the patient. Please see their attestation note for further details. CHIEF COMPLAINT Chief Complaint Patient presents with Hip Pain HISTORY OF PRESENT ILLNESS (Location/Symptom, Timing/Onset, Context/Setting, Quality, Duration, Modifying Factors, Severity) Note limiting factors. I wore appropriate PPE for the entirety of this encounter. HPI Isidro Smith is a 57 y.o. who presents to the emergency department with concern for worsening thighpain and hematoma. 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 He said a few days ago he had an injury where he thought that he pulled a muscle in his groin, however now he is noticing worsening pain and swelling of the thigh with concern for new onset hematoma formation. He was seen and evaluated at [facility] earlier today,where he left A after he reported that his pain was not adequately controlled. He denies any new recent injury to the area. No chest pain, shortness of breath, or lightheadedness. Denies any numbness, tingling, weakness of the extremity. Nursing Notes were reviewed. Limitations to history: None Outside historians: None REVIEW OF SYSTEMS Review of Systems Constitutional: Negative for chills and fever. HENT: Negative for congestion. Respiratory: Negative for cough and shortness of breath. Cardiovascular: Negative for chest pain. Gastrointestinal: Negative for abdominal pain, nausea and vomiting. Genitourinary: Negative for dysuria and hematuria. Musculoskeletal: Negative for arthralgias and myalgias. Right thigh pain Skin: Negative for color change and rash. Neurological: Negative for dizziness and syncope. Hematological: Negative. All other systems reviewed and are negative. Pertinent positives and negatives as per HPI. PAST MEDICAL HISTORY Past Medical History: Diagnosis Date Alcohol abuse Depression Drug abuse (CMS/HCC) SURGICAL HISTORY Past Surgical History: Procedure Laterality Date ANKLE SURGERY KNEE SURGERY SPLENECTOMY, TOTAL WRIST SURGERY CURRENT MEDICATIONS Previous Medications No medications on file ALLERGIES Codeine and Ciprofloxacin FAMILY HISTORY No family history on file. SOCIAL HISTORY Social History Socioeconomic History Marital status: Tobacco Use Smoking status: Never Smokeless tobacco: Never Substance and Sexual Activity Alcohol use: Not Currently Drug use: Not Currently SCREENINGS Cheikh Coma Scale Best Eye Response: Spontaneous Best Verbal Response: Oriented Best Motor Response: Follows commands Cheikh Coma Scale Score: 15 PHYSICAL EXAM ED Triage Vitals [02/09/23 1130] Temp Heart Rate Resp BP 37.3 C (99.1 F) 84 20 (!) 154/104 SpO2 Temp Source Heart Rate Source Patient Position 95 % Temporal Monitor -- BP Location FiO2 (%) -- -- Physical Exam Vitals and nursing note reviewed. Constitutional: General: He is not in acute distress. Appearance: He is well-developed. Cardiovascular: Rate and Rhythm: Normal rate and regular rhythm. Pulses: Normal pulses. Heart sounds: Normal heart sounds. Pulmonary: Effort: Pulmonary effort is normal. No respiratory distress. Breath sounds: Normal breath sounds. Abdominal: General: There is no distension. Palpations: Abdomen is soft. Tenderness: There is no abdominal tenderness. There is no guarding or rebound. Musculoskeletal: Comments: Right thigh pain and swelling, R > L. Sensation intact to light touch. Minimal bruising around medial knee. Tender to palpation. DP and PT pulses intact with brisk capillary refill. Skinwarm and dry otherwise. Compartments soft. Skin: General: Skin is warm and dry. Capillary Refill: Capillary refill takes less than 2 seconds. Neurological: Mental Status: He is alert and oriented to person, place, and time. Psychiatric: Mood and Affect: Mood normal. Behavior: Behavior normal. DIAGNOSTIC RESULTS RADIOLOGY (Per Emergency Physician): Interpretation per the Radiologist below, if available at the time of this note: CT abdomen pelvis w contrast Final Result Right psoas and retroperitoneal hemorrhage extending into the previously described large right iliacus hematoma with extension into the anterior compartment of the right thigh. Nonspecific hypoattenuating lesions in the liver. Clinical correlation for liver hematoma/laceration is recommended. Further evaluation with ultrasound or MRI may be obtained as indicated. Herniation of a portion of a colonic loop in the patient's ventral abdominal wall hernia without CTevidence of obstruction. Correlation with physical exam is recommended. Hepatic steatosis, correlation with LFTs is recommended. Nonspecific enlarged portacaval lymph node. Report Dictated on Electronically Signed By: Uri Bolton MD Electronically Signed Date/Time: 02/09/2023 3:[address] femur right w IV contrast Final Result No acute osseous abnormality of the visualized femur. Large hematoma of the iliacus and anterior compartment of the right thigh in keeping with provided history. No contrast extravasation. No visible aneurysm within constraints of venous phase of imaging. The superior most extent is not visualized and true size is not known. Consider further evaluation with CT of the abdomen/pelvis. CRITICAL TEST RESULT COMMUNICATION: Notification of these findings was made to Dr. Valiente via phone call on 02/09/2023 2:12 PM EDT. Report Dictated on Electronically Signed By: Daniel Pan MD Electronically Signed Date/Time: 02/09/2023 2:14 PM EDT LABS: Labs Reviewed BASIC METABOLIC PANEL - Abnormal Result Value SODIUM 136 POTASSIUM 3.5 CHLORIDE 101 CARBON DIOXIDE 27 UREA NITROGEN 25 (*) CREATININE 1.00 GLUCOSE 115 (*) CALCIUM 8.5 ANION GAP 8 eGFR 88.3 CBC WITH AUTO DIFFERENTIAL - Abnormal Auto WBC 13.4 (*) RBC 4.12 (*) Hemoglobin 13.5 Hematocrit 41.0 MCV 99.3 (*) MCH 32.7 MCHC 32.9 RDW 14.6 (*) Platelets 482 (*) MPV 7.4 nRBC 0.1 Neutrophils Relative 67.2 Lymphocytes Relative 19.3 (*) Monocytes Relative 10.9 (*) Eosinophils Relative 1.8 Basophils Relative 0.8 Neutrophils Absolute 9.0 (*) Lymphocytes Absolute 2.6 Monocytes Absolute 1.5 (*) Eosinophils Absolute 0.2 Basophils Absolute 0.1 PROTHROMBIN TIME - Normal PROTHROMBIN TIME 10.7 INR 1.0 APTT - Normal APTT 27.8 Narrative: NOTE: The therapeutic time for Heparin anticoagulation, based on Xa activity inhibition, is an APTTof 46-80 seconds. All other labs were within normal range or not returned as of this dictation. EMERGENCY DEPARTMENT COURSE and DIFFERENTIAL DIAGNOSIS/MDM: Vitals: Vitals: 02/09/23 1130 02/09/23 1432 BP: (!) 154/104 (!) 160/101 Pulse: 84 79 Resp: 20 22 Temp: 37.3 C (99.1 F) TempSrc: Temporal SpO2: 95% 95% Medications acetaminophen (Tylenol) tablet 650 mg (has no administration in time range) Or acetaminophen (Tylenol) suppository 650 mg (has no administration in time range) ondansetron ODT (Zofran-ODT) disintegrating tablet 4 mg (has no administration in time range) Or ondansetron (Zofran) injection 4 mg (has no administration in time range) polyethylene glycol (PEG) 3350 (Miralax) packet 17 g (has no administration in time range) HYDROmorphone (Dilaudid) injection 0.5 mg (has no administration in time range) oxyCODONE-acetaminophen (Percocet) 5-325 MG per tablet 1 tablet (has no administration in time range) oxyCODONE-acetaminophen (Percocet) 5-325 MG per tablet 1 tablet (1 tablet Oral Given 02/09/23 1230) iopamidol (Isovue-370) 76 % injection 75 mL (75 mL IntraVENous Given 02/09/23 1404) oxyCODONE-acetaminophen (Percocet) 5-325 MG per tablet 1 tablet (1 tablet Oral Given 02/09/23 1450) MDM elements: The patient presented with chief complaint of hip and thigh pain secondary to known hematoma. Patient has a history of hemophilia B. Recently left [facility] where he wasbeing treated for this. On my exam he is alert, oriented, no acute distress. Vital signs are stableand unremarkable. Noted some swelling of the right thigh in comparison to the left. Neurovascular intact otherwise with no further evidence of injury or trauma. The differential diagnosis associated with this patient's presentation includes hematoma. Our workup consisted of ordering/reviewing: CBC with leukocytosis of 13, hemoglobin stable at 13.5.aPTT and PT/INR unremarkable. BMP with nonspecific changes. CT abdomen pelvis as well as CT femur obtained which demonstrates known psoas, retroperitoneal hemorrhage extending into the right iliac us. Patient provided with pain control per her request. I spoke with hematology and oncology in regards to this patient's presentation, they advise continued with competent factor IX, twice daily. We will plan to consult and evaluate patient tomorrow. Will admit for further evaluation and treatment. I discussed their care with [facility] oncology. The patient will be Admitted. Patient is in agreement with this plan. PROCEDURES: Unless otherwise noted below, none Procedures CRITICAL CARE TIME FINAL IMPRESSION 1. Hematoma 2. Hemophilia (CMS/HCC) ([facility]) DISPOSITION Admit 02/09/2023 04:48:34 PM PATIENT REFERRED TO: No follow-up provider specified. DISCHARGE MEDICATIONS: New Prescriptions No medications on file (Comment: Please note this report has been produced using speech recognition software and may contain errors related to that system including errors in grammar, punctuation, and spelling, as well as words and phrases that may be inappropriate. If there are any questions or concerns please feel freeto contact the dictating provider for clarification.) Anika Conn PA-C (electronically signed) Emergency Medicine Provider Anika Conn PA-C 02/09/231652 [id number] Emergency department Note* Frederick Valiente DO - 02/09/2023 11:27 AM EDT Emergency Department Encounter [facility] ED Patient: Isidro Smith : 1965 Date of Evaluation: 02/09/2023 ED Supervising Physician: Frederick Valiente DO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 cyanosis, clubbing, gross deformities, or palpable cords. Fracture to R radius withscar healed. Neurological: Cranial nerves II through XII are intact bilaterally, strength normal in the upper and lower extremities, no focal deficits. Skin: Warm and dry with no rashes or ulcerations. Nodes: No palpable adenopathy in the cervical, supraclavicular, infraclavicular, or axillary regions. Hematologic: no bruising or petechiae. Psychiatric: Alert and oriented x3. Emotional well-being assessment was performed. Pt denies depression, distress, and or problems with coping or adjustment. Labs CBC: Recent Labs 10/11/20 1504 WBC 9.12 HB 9.9* HCT 32.6* PLT 467* MCV 78.0* RDWCV 20.3* NEUTP 55.1 ABSNEUT 5.03 LYMPHP 28.0 MONOP 12.1 COAG: Recent Labs 10/11/20 1933 APTT 42.4* INR 1.0 BMP: Recent Labs 10/11/20 1504 GLUC 94 NA 136 K 4.1 CHLOR 106* CO2 21* ANION 9 BUN 15 CREAT 0.83 CHEM: Recent Labs 10/11/20 1504 CA 8.7 Factor IX: 10/11/20: 3% FERRITIN BLD Lab Results Component Value Date ED 78.9 10/17/2020 ED 6.60 (L) 12/29/2018 ED 129.70 07/07/2018 IRON Lab Results Component Value Date FE 41 10/17/2020 FE 34 (L) 12/29/2018 FE 27 (L) 07/07/2018 TIBC Lab Results Component Value Date TIBC 492 (H) 10/17/2020 TIBC 450 12/29/2018 TIBC 337 07/07/2018 FOLATE No results found for: FOLATE Impression and Plan: 1) Factor IX deficiency 2) Hepatitis C 3) Drug abuse 4) GIB 5) Iron deficiency anemia secondary to GIB 6) Fatigue and dehydration 7) Diarrhea with abdominal cramping 8) C diff found in February 2018 on admission 9) Abdominal pain secondary to GIB 10) HTN likely secondary to pain His Hb is low again with likely low iron stores but these were not tested in ER 09/2020. Will retestthem today. He is s/p IV Injectafer and Venofer multiple times. He has no diarrhea or bleeding at this time so he does not need any Benefix. As far as his Hepatitis is concerned, he was referred to Dr. Collado in 02/2017, but I did explain to the patient that he will need to undergo workup and will need to be sober for >6 months in order to receive treatment. I have recommended that he see GI in follow up. His Factor IX level is low but no active bleeding right now. He will need to come back and see me in about 8 weeks for follow up and lab check. He was advised to take Protonix BID as directed. The patient was were able to ask questions and all were answered to his satisfaction. I will set him up for a dose of Monoferric as well before his next appt and recheck iron levels at that time. Medical Decision Making: Problems: Moderate: 2+ stable chronic illnesses Data: Unique test result(s) reviewed: 3+ Unique test(s) ordered: 3+ Independent interpretation of test from other physician/QHCP Risk: Moderate: Drug management and Moderate risk from testing/treatment Medical Decision Making Level: 4 - Moderate Chyna East [facility] of Past illness Narrative* Problem Noted Date Resolved Date Upper gastrointestinal bleed 11/17/2018 Last Assessment & Plan: Assessment: Patient presenting with hematemesis, received 2 units pRBC on admission with Benefix, Hb 7.7->9.2 PLAN: - Check Hb in AM - Stop benefix. Heme onc recommends repeat Hb in AM, if stable, then discharge. - Continue PPI BID, zofran Hyponatremia 11/09/2018 11/10/2018 Hypokalemia 11/09/2018 11/10/2018 Acute blood loss anemia 09/22/2018 09/27/19 19 Last Assessment & Plan: Assessment: GI bleed resolved per patient; Hgb stable PLAN: -transfused total of 3 pRBC -plan as above C. difficile colitis 03/24/2018 09/23/2018 Overview: Added automatically from request for surgery [id number] Last Assessment & Plan: C.diff positive Continue PO Vancomycin 125 mg QID x 10 days per ID ID following WBC elevated to 26k today Will evaluate for alternate source of infection Upper GI bleed 03/24/2018 09/26/2018 Overview: Added automatically from request for surgery [id number] Last Assessment & Plan: Assessment: Hgb stable this am; EGD (09/24) - non-bleeding duodenal ulcer with 3 clips placed. Denies anymore melanotic stools; CT abdomen no acute abnormality. Hemodynamically stable PLAN: -Protonix BID -GI recs appreciated - signed off, will follow-up outpatient -advance diet as tolerated -transfusion threshold Hgb < 7 -monitor Hgb in the am, if stable likely discharge Abdominal pain 01/14/2018 09/26/2018 Last Assessment & Plan: Assessment: improving; RUQ pain Likely 2/2 peptic ulcer disease. Lipase normal. No cholelithiasis in CT. PLAN: -pain control GI bleed 01/10/2018 01/15/2018 Last Assessment & Plan: Assessment & PLAN: -continue pantoprazole -GI following - appreciate recs -hgb q8h -transfuse if hgb < 7 -soft oral GI diet -CT Abdomen: no new findings -RUQ US: cholelithiasis -IVF documented as of this encounter (statuses as of 10/18/2020) [facility] History of Past illness Narrative* Problem Noted Date Resolved Date Upper gastrointestinal bleed 11/17/2018 Last Assessment & Plan: Assessment: Patient presenting with hematemesis, received 2 units pRBC on admission with Benefix, Hb 7.7->9.2 PLAN: - Check Hb in AM - Stop benefix. Heme onc recommends repeat Hb in AM, if stable, then discharge. - Continue PPI BID, zofran Hyponatremia 11/09/2018 11/10/2018 Hypokalemia 11/09/2018 11/10/2018 Acute blood loss anemia 09/22/2018 09/27/19 19 Last Assessment & Plan: Assessment: GI bleed resolved per patient; Hgb stable PLAN: -transfused total of 3 pRBC -plan as above C. difficile colitis 03/24/2018 09/23/2018 Overview: Added automatically from request for surgery [id number] Last Assessment & Plan: C.diff positive Continue PO Vancomycin 125 mg QID x 10 days per ID ID following WBC elevated to 26k today Will evaluate for alternate source of infection Upper GI bleed 03/24/2018 09/26/2018 Overview: Added automatically from request for surgery [id number] Last Assessment & Plan: Assessment: Hgb stable this am; EGD (3/28) - non-bleeding duodenal ulcer with 3 clips placed. Denies anymore melanotic stools; CT abdomen no acute abnormality. Hemodynamically stable PLAN: -Protonix BID -GI recs appreciated - signed off, will follow-up outpatient -advance diet as tolerated -transfusion threshold Hgb < 7 -monitor Hgb in the am, if stable likely discharge Abdominal pain 01/14/2018 09/26/2018 Last Assessment & Plan: Assessment: improving; RUQ pain Likely 2/2 peptic ulcer disease. Lipase normal. No cholelithiasis in CT. PLAN: -pain control GI bleed 01/10/2018 01/15/2018 Last Assessment & Plan: Assessment & PLAN: -continue pantoprazole -GI following - appreciate recs -hgb q8h -transfuse if hgb < 7 -soft oral GI diet -CT Abdomen: no new findings -RUQ US: cholelithiasis -IVF documented as of this encounter (statuses as of 10/18/2020) [facility] of Past illness Narrative* Problem Noted Date Resolved Date Upper gastrointestinal bleed 11/17/2018 Last Assessment & Plan: Assessment: Patient presenting with hematemesis, received 2 units pRBC on admission with Benefix, Hb 7.7->9.2 PLAN: - Check Hb in AM - Stop benefix. Heme onc recommends repeat Hb in AM, if stable, then discharge. - Continue PPI BID, zofran Hyponatremia 11/09/2018 11/10/2018 Hypokalemia 11/09/2018 11/10/2018 Acute blood loss anemia 09/22/2018 09/27/19 19 Last Assessment & Plan: Assessment: GI bleed resolved per patient; Hgb stable PLAN: -transfused total of 3 pRBC -plan as above C. difficile colitis 03/24/2018 09/23/2018 Overview: Added automatically from request for surgery [id number] Last Assessment & Plan: C.diff positive Continue PO Vancomycin 125 mg QID x 10 days per ID ID following WBC elevated to 26k today Will evaluate for alternate source of infection Upper GI bleed 03/24/2018 09/26/2018 Overview: Added automatically from request for surgery [id number] Last Assessment & Plan: Assessment: Hgb stable this am; EGD (09/24) - non-bleeding duodenal ulcer with 3 clips placed. Denies anymore melanotic stools; CT abdomen no acute abnormality. Hemodynamically stable PLAN: -Protonix BID -GI recs appreciated - signed off, will follow-up outpatient -advance diet as tolerated -transfusion threshold Hgb < 7 -monitor Hgb in the am, if stable likely discharge Abdominal pain 01/14/2018 09/26/2018 Last Assessment & Plan: Assessment: improving; RUQ pain Likely 2/2 peptic ulcer disease. Lipase normal. No cholelithiasis in CT. PLAN: -pain control GI bleed 01/10/2018 01/15/2018 Last Assessment & Plan: Assessment & PLAN: -continue pantoprazole -GI following - appreciate recs -hgb q8h -transfuse if hgb < 7 -soft oral GI diet -CT Abdomen: no new findings -RUQ US: cholelithiasis -IVF documented as of this encounter (statuses as of 11/07/2020) [facility] Narrative* Problem Noted Date Resolved Date Upper gastrointestinal bleed 11/17/2018 Last Assessment & Plan: Assessment: Patient presenting with hematemesis, received 2 units pRBC on admission with Benefix, Hb 7.7->9.2 PLAN: - Check Hb in AM - Stop benefix. Heme onc recommends repeat Hb in AM, if stable, then discharge. - Continue PPI BID, zofran Hyponatremia 11/09/2018 11/10/2018 Hypokalemia 11/09/2018 11/10/2018 Acute blood loss anemia 09/22/2018 09/27/19 Last Assessment & Plan: Assessment: GI bleed resolved per patient; Hgb stable PLAN: -transfused total of 3 pRBC -plan as above C. difficile colitis 03/24/2018 09/23/2018 Overview: Added automatically from request for surgery [id number] Last Assessment & Plan: C.diff positive Continue PO Vancomycin 125 mg QID x 10 days per ID ID following WBC elevated to 26k today Will evaluate for alternate source of infection Upper GI bleed 03/24/2018 09/26/2018 Overview: Added automatically from request for surgery [id number] Last Assessment & Plan: Assessment: Hgb stable this am; EGD (09/24) - non-bleeding duodenal ulcer with 3 clips placed. Denies anymore melanotic stools; CT abdomen no acute abnormality. Hemodynamically stable PLAN: -Protonix BID -GI recs appreciated - signed off, will follow-up outpatient -advance diet as tolerated -transfusion threshold Hgb < 7 -monitor Hgb in the am, if stable likely discharge Abdominal pain 01/14/2018 09/26/2018 Last Assessment & Plan: Assessment: improving; RUQ pain Likely 2/2 peptic ulcer disease. Lipase normal. No cholelithiasis in CT. PLAN: -pain control GI bleed 01/10/2018 01/15/2018 Last Assessment & Plan: Assessment & PLAN: -continue pantoprazole -GI following - appreciate recs -hgb q8h -transfuse if hgb < 7 -soft oral GI diet -CT Abdomen: no new findings -RUQ US: cholelithiasis -IVF documented as of this encounter (statuses as of 11/19/2020) [facility] of Past illness Narrative* Problem Noted Date Resolved Date Upper gastrointestinal bleed 11/17/2018 Last Assessment & Plan: Assessment: Patient presenting with hematemesis, received 2 units pRBC on admission with Benefix, Hb 7.7->9.2 PLAN: - Check Hb in AM - Stop benefix. Heme onc recommends repeat Hb in AM, if stable, then discharge. - Continue PPI BID, zofran Hyponatremia 11/09/2018 11/10/2018 Hypokalemia 11/09/2018 11/10/2018 Acute blood loss anemia 09/22/2018 09/27/19 Last Assessment & Plan: Assessment: GI bleed resolved per patient; Hgb stable PLAN: -transfused total of 3 pRBC -plan as above C. difficile colitis 03/24/2018 09/23/2018 Overview: Added automatically from request for surgery [id number] Last Assessment & Plan: C.diff positive Continue PO Vancomycin 125 mg QID x 10 days per ID ID following WBC elevated to 26k today Will evaluate for alternate source of infection Upper GI bleed 03/24/2018 09/26/2018 Overview: Added automatically from request for surgery [id number] Last Assessment & Plan: Assessment: Hgb stable this am; EGD (09/24) - non-bleeding duodenal ulcer with 3 clips placed. Denies anymore melanotic stools; CT abdomen no acute abnormality. Hemodynamically stable PLAN: -Protonix BID -GI recs appreciated - signed off, will follow-up outpatient -advance diet as tolerated -transfusion threshold Hgb < 7 -monitor Hgb in the am, if stable likely discharge Abdominal pain 01/14/2018 09/26/2018 Last Assessment & Plan: Assessment: improving; RUQ pain Likely 2/2 peptic ulcer disease. Lipase normal. No cholelithiasis in CT. PLAN: -pain control GI bleed 01/10/2018 01/15/2018 Last Assessment & Plan: Assessment & PLAN: -continue pantoprazole -GI following - appreciate recs -hgb q8h -transfuse if hgb < 7 -soft oral GI diet -CT Abdomen: no new findings -RUQ US: cholelithiasis -IVF documented as of this encounter (statuses as of 01/09/2021) [facility] of [facility] illness Narrative* Problem Noted Date Resolved Date Upper gastrointestinal bleed 11/17/2018 Last Assessment & Plan: Assessment: Patient presenting with hematemesis, received 2 units pRBC on admission with Benefix, Hb 7.7->9.2 PLAN: - Check Hb in AM - Stop benefix. Heme onc recommends repeat Hb in AM, if stable, then discharge. - Continue PPI BID, zofran Hyponatremia 11/09/2018 11/10/2018 Hypokalemia 11/09/2018 11/10/2018 Acute blood loss anemia 09/22/2018 09/27/19 Last Assessment & Plan: Assessment: GI bleed resolved per patient; Hgb stable PLAN: -transfused total of 3 pRBC -plan as above C. difficile colitis 03/24/2018 09/23/2018 Overview: Added automatically from request for surgery [id number] Last Assessment & Plan: C.diff positive Continue PO Vancomycin 125 mg QID x 10 days per ID ID following WBC elevated to 26k today Will evaluate for alternate source of infection Upper GI bleed 03/24/2018 09/26/2018 Overview: Added automatically from request for surgery [id number] Last Assessment & Plan: Assessment: Hgb stable this am; EGD (09/24) - non-bleeding duodenal ulcer with 3 clips placed. Denies anymore melanotic stools; CT abdomen no acute abnormality. Hemodynamically stable PLAN: -Protonix BID -GI recs appreciated - signed off, will follow-up outpatient -advance diet as tolerated -transfusion threshold Hgb < 7 -monitor Hgb in the am, if stable likely discharge Abdominal pain 01/14/2018 09/26/2018 Last Assessment & Plan: Assessment: improving; RUQ pain Likely 2/2 peptic ulcer disease. Lipase normal. No cholelithiasis in CT. PLAN: -pain control GI bleed 01/10/2018 01/15/2018 Last Assessment & Plan: Assessment & PLAN: -continue pantoprazole -GI following - appreciate recs -hgb q8h -transfuse if hgb < 7 -soft oral GI diet -CT Abdomen: no new findings -RUQ US: cholelithiasis -IVF documented as of this encounter (statuses as of 01/25/2021) [facility] of [facility] illness Narrative* Problem Noted Date Resolved Date Upper gastrointestinal bleed 11/17/2018 Last Assessment & Plan: Assessment: Patient presenting with hematemesis, received 2 units pRBC on admission with Benefix, Hb 7.7->9.2 PLAN: - Check Hb in AM - Stop benefix. Heme onc recommends repeat Hb in AM, if stable, then discharge. - Continue PPI BID, zofran Hyponatremia 11/09/2018 11/10/2018 Hypokalemia 11/09/2018 11/10/2018 Acute blood loss anemia 09/22/2018 09/27/19 19 Last Assessment & Plan: Assessment: GI bleed resolved per patient; Hgb stable PLAN: -transfused total of 3 pRBC -plan as above C. difficile colitis 03/24/2018 09/23/2018 Overview: Added automatically from request for surgery [id number] Last Assessment & Plan: C.diff positive Continue PO Vancomycin 125 mg QID x 10 days per ID ID following WBC elevated to 26k today Will evaluate for alternate source of infection Upper GI bleed 03/24/2018 09/26/2018 Overview: Added automatically from request for surgery [id number] Last Assessment & Plan: Assessment: Hgb stable this am; EGD (09/24) - non-bleeding duodenal ulcer with 3 clips placed. Denies anymore melanotic stools; CT abdomen no acute abnormality. Hemodynamically stable PLAN: -Protonix BID -GI recs appreciated - signed off, will follow-up outpatient -advance diet as tolerated -transfusion threshold Hgb < 7 -monitor Hgb in the am, if stable likely discharge Abdominal pain 01/14/2018 09/26/2018 Last Assessment & Plan: Assessment: improving; RUQ pain Likely 2/2 peptic ulcer disease. Lipase normal. No cholelithiasis in CT. PLAN: -pain control GI bleed 01/10/2018 01/15/2018 Last Assessment & Plan: Assessment & PLAN: -continue pantoprazole -GI following - appreciate recs -hgb q8h -transfuse if hgb < 7 -soft oral GI diet -CT Abdomen: no new findings -RUQ US: cholelithiasis -IVF documented as of this encounter (statuses as of 03/08/2021) [facility] of Past illness Narrative* Problem Noted Date Resolved Date Upper gastrointestinal bleed 11/17/2018 Last Assessment & Plan: Assessment: Patient presenting with hematemesis, received 2 units pRBC on admission with Benefix, Hb 7.7->9.2 PLAN: - Check Hb in AM - Stop benefix. Heme onc recommends repeat Hb in AM, if stable, then discharge. - Continue PPI BID, zofran Hyponatremia 11/09/2018 11/10/2018 Hypokalemia 11/09/2018 11/10/2018 Acute blood loss anemia 09/22/2018 09/27/19 19 Last Assessment & Plan: Assessment: GI bleed resolved per patient; Hgb stable PLAN: -transfused total of 3 pRBC -plan as above C. difficile colitis 03/24/2018 09/23/2018 Overview: Added automatically from request for surgery [id number] Last Assessment & Plan: C.diff positive Continue PO Vancomycin 125 mg QID x 10 days per ID ID following WBC elevated to 26k today Will evaluate for alternate source of infection Upper GI bleed 03/24/2018 09/26/2018 Overview: Added automatically from request for surgery [id number] Last Assessment & Plan: Assessment: Hgb stable this am; EGD (09/24) - non-bleeding duodenal ulcer with 3 clips placed. Denies anymore melanotic stools; CT abdomen no acute abnormality. Hemodynamically stable PLAN: -Protonix BID -GI recs appreciated - signed off, will follow-up outpatient -advance diet as tolerated -transfusion threshold Hgb < 7 -monitor Hgb in the am, if stable likely discharge Abdominal pain 01/14/2018 09/26/2018 Last Assessment & Plan: Assessment: improving; RUQ pain Likely 2/2 peptic ulcer disease. Lipase normal. No cholelithiasis in CT. PLAN: -pain control GI bleed 01/10/2018 01/15/2018 Last Assessment & Plan: Assessment & PLAN: -continue pantoprazole -GI following - appreciate recs -hgb q8h -transfuse if hgb < 7 -soft oral GI diet -CT Abdomen: no new findings -RUQ US: cholelithiasis -IVF documented as of this encounter (statuses as of 03/09/2021) [facility] Past illness Narrative* Problem Noted Date Resolved Date Upper gastrointestinal bleed 11/17/2018 Last Assessment & Plan: Assessment: Patient presenting with hematemesis, received 2 units pRBC on admission with Benefix, Hb 7.7->9.2 PLAN: - Check Hb in AM - Stop benefix. Heme onc recommends repeat Hb in AM, if stable, then discharge. - Continue PPI BID, zofran Hyponatremia 11/09/2018 11/10/2018 Hypokalemia 11/09/2018 11/10/2018 Acute blood loss anemia 09/22/2018 09/27/19 19 Last Assessment & Plan: Assessment: GI bleed resolved per patient; Hgb stable PLAN: -transfused total of 3 pRBC -plan as above C. difficile colitis 03/24/2018 09/23/2018 Overview: Added automatically from request for surgery [id number] Last Assessment & Plan: C.diff positive Continue PO Vancomycin 125 mg QID x 10 days per ID ID following WBC elevated to 26k today Will evaluate for alternate source of infection Upper GI bleed 03/24/2018 09/26/2018 Overview: Added automatically from request for surgery [id number] Last Assessment & Plan: Assessment: Hgb stable this am; EGD (09/24) - non-bleeding duodenal ulcer with 3 clips placed. Denies anymore melanotic stools; CT abdomen no acute abnormality. Hemodynamically stable PLAN: -Protonix BID -GI recs appreciated - signed off, will follow-up outpatient -advance diet as tolerated -transfusion threshold Hgb < 7 -monitor Hgb in the am, if stable likely discharge Abdominal pain 01/14/2018 09/26/2018 Last Assessment & Plan: Assessment: improving; RUQ pain Likely 2/2 peptic ulcer disease. Lipase normal. No cholelithiasis in CT. PLAN: -pain control GI bleed 01/10/2018 01/15/2018 Last Assessment & Plan: Assessment & PLAN: -continue pantoprazole -GI following - appreciate recs -hgb q8h -transfuse if hgb < 7 -soft oral GI diet -CT Abdomen: no new findings -RUQ US: cholelithiasis -IVF documented as of this encounter (statuses as of 03/09/2021) [facility] of Past illness Narrative* Problem Noted Date Resolved Date Upper gastrointestinal bleed 11/17/2018 Last Assessment & Plan: Assessment: Patient presenting with hematemesis, received 2 units pRBC on admission with Benefix, Hb 7.7->9.2 PLAN: - Check Hb in AM - Stop benefix. Heme onc recommends repeat Hb in AM, if stable, then discharge. - Continue PPI BID, zofran Hyponatremia 11/09/2018 11/10/2018 Hypokalemia 11/09/2018 11/10/2018 Acute blood loss anemia 09/22/2018 09/27/19 19 Last Assessment & Plan: Assessment: GI bleed resolved per patient; Hgb stable PLAN: -transfused total of 3 pRBC -plan as above C. difficile colitis 03/24/2018 09/23/2018 Overview: Added automatically from request for surgery [id number] Last Assessment & Plan: C.diff positive Continue PO Vancomycin 125 mg QID x 10 days per ID ID following WBC elevated to 26k today Will evaluate for alternate source of infection Upper GI bleed 03/24/2018 09/26/2018 Overview: Added automatically from request for surgery [id number] Last Assessment & Plan: Assessment: Hgb stable this am; EGD (09/24) - non-bleeding duodenal ulcer with 3 clips placed. Denies anymore melanotic stools; CT abdomen no acute abnormality. Hemodynamically stable PLAN: -Protonix BID -GI recs appreciated - signed off, will follow-up outpatient -advance diet as tolerated -transfusion threshold Hgb < 7 -monitor Hgb in the am, if stable likely discharge Abdominal pain 01/14/2018 09/26/2018 Last Assessment & Plan: Assessment: improving; RUQ pain Likely 2/2 peptic ulcer disease. Lipase normal. No cholelithiasis in CT. PLAN: -pain control GI bleed 01/10/2018 01/15/2018 Last Assessment & Plan: Assessment & PLAN: -continue pantoprazole -GI following - appreciate recs -hgb q8h -transfuse if hgb < 7 -soft oral GI diet -CT Abdomen: no new findings -RUQ US: cholelithiasis -IVF documented as of this encounter (statuses as of 03/23/2021) [facility] of Past illness Narrative* Problem Noted Date Resolved Date Upper gastrointestinal bleed 11/17/2018 Last Assessment & Plan: Assessment: Patient presenting with hematemesis, received 2 units pRBC on admission with Benefix, Hb 7.7->9.2 PLAN: - Check Hb in AM - Stop benefix. Heme onc recommends repeat Hb in AM, if stable, then discharge. - Continue PPI BID, zofran Hyponatremia 11/09/2018 11/10/2018 Hypokalemia 11/09/2018 11/10/2018 Acute blood loss anemia 09/22/2018 09/27/19 Last Assessment & Plan: Assessment: GI bleed resolved per patient; Hgb stable PLAN: -transfused total of 3 pRBC -plan as above C. difficile colitis 03/24/2018 09/23/2018 Overview: Added automatically from request for surgery [id number] Last Assessment & Plan: C.diff positive Continue PO Vancomycin 125 mg QID x 10 days per ID ID following WBC elevated to 26k today Will evaluate for alternate source of infection Upper GI bleed 03/24/2018 09/26/2018 Overview: Added automatically from request for surgery [id number] Last Assessment & Plan: Assessment: Hgb stable this am; EGD (09/24) - non-bleeding duodenal ulcer with 3 clips placed. Denies anymore melanotic stools; CT abdomen no acute abnormality. Hemodynamically stable PLAN: -Protonix BID -GI recs appreciated - signed off, will follow-up outpatient -advance diet as tolerated -transfusion threshold Hgb < 7 -monitor Hgb in the am, if stable likely discharge Abdominal pain 01/14/2018 09/26/2018 Last Assessment & Plan: Assessment: improving; RUQ pain Likely 2/2 peptic ulcer disease. Lipase normal. No cholelithiasis in CT. PLAN: -pain control GI bleed 01/10/2018 01/15/2018 Last Assessment & Plan: Assessment & PLAN: -continue pantoprazole -GI following - appreciate recs -hgb q8h -transfuse if hgb < 7 -soft oral GI diet -CT Abdomen: no new findings -RUQ US: cholelithiasis -IVF documented as of this encounter (statuses as of 04/24/2021) [facility]10-23-2018 Miscellaneous Notes* Telephone Encounter - Phoenix, Tammy (Rn), RN - 04/21/2018 3:01 PM EDT Call back attempted with no answer. Detailed message left on pt's voicemail reminding of next appointment & to call Dr. East's office with any questions or concerns. documented in this encounterBellevue HospitalDischar summary Author Stevie Cassidy [facility] July 05, 2023 9:15am Note Date/Time July 05, 2023 9: 15am [facility] Medical Records Department [address] [place]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 needed Return if symptoms worsen or fail to improve. Kenneth Monique MD I was present in the resident orthopedic clinic today and I agree with the residents assessment andplan unless noted otherwise. Gee Lu MD * Efren Adler - 09/08/2020 9:45 AM EST REVIEW OF SYSTEMS: GENERAL: Hep C, H/o ETOH, H/o Heroin Abuse, H/o Opioid Dependence, IBS PAIN: L Wrist, L Hand CARDIOVASCULAR: Negative for chest pain, leg swelling and palpations. MSK: L Wrist, L Hand SKIN: Negative for lesions, rash, itching, metal sensitivity NEURO: Negative for seizure, trauma, numbness/tingling of extremities. 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 Infuse over several minutes. New Bag/Syringe/Bottle 03/09/2021 3:47 PM EDT 6,000 Units Inactive Administered Medications - up to 3 most recent administrations Medication Order MAR Action Action Date Dose Rate Site coagulation factor IX recomb 6,000 Units in NaCl 0.2% 15 mL (BENEFIX) 6,000 Units, INTRAVENOUS, ONCE, 1 dose, On Fri07/30/22 at 1030, Dosing guidance: 1.2 -1.4 units/kg for every 1% rise in FIX activity desired. (Actual Dose can be +/- 10% of ordered dose) Lot: Exp: Mixture Exp: (3 hr). Infuse over several minutes. New Bag/Syringe/Bottle 07/30/2022 10:55 AM EST 6,000 Units Inactive Administered Medications - up to 3 most recent administrations Medication Order MAR Action Action Date Dose Rate Site coagulation factor IX recomb 6,000 Units in NaCl 0.2% 15 mL (BENEFIX) 6,000 Units, INTRAVENOUS, ONCE, 1 dose, On Fri07/31/22 at 0830, Dosing guidance: 1.2 -1.4 units/kg for every 1% rise in FIX activity desired. (Actual Dose can be +/- 10% of ordered dose) Exp 07/31/221099 Lot: Exp: Mixture Exp: (3 hr). Infuse over several minutes. New Bag/Syringe/Bottle 07/31/2022 8:21 AM EST 6,000 Units Inactive Administered Medications - up to 3 most recent administrations Medication Order MAR Action Action Date Dose Rate Site coagulation factor IX recomb 6,000 Units in NaCl 0.2% 30 mL (BENEFIX) 6,000 Units, INTRAVENOUS, ONCE, 1 dose, On Fri11/06/22 at 1330, Dosing guidance: 1.2 -1.4 units/kg for every 1% rise in FIX activity desired. (Actual Dose can be +/- 10% of ordered dose) Lot: Exp: Mixture Exp: (3 hr). Infuse over several minutes. New Bag/Syringe/Bottle 11/06/2022 2:10 PM EDT 6,000 Units Health Concerns Infection Onset Date Last Indicated Resolved Time COVID-19 Confirmed 04/21/2021 04/21/2021 Infection Onset Date Last Indicated Resolved Time COVID-19 Rule-Out 10/23/2021 10/23/2021 10/23/2021 6:30 AM EDT Chief Complaint and Reason for Visit Chief Complaint WOUND Additional Source Comments (unrecognized sect ion and content) No Status Records FoundNo Status Records FoundNo Status Records FoundNo Status Records FoundNo Status Records FoundNo Status Records FoundNo Status Records FoundNo Status Records FoundNo Status Records FoundNo Status Records FoundNo Status Records Found INFORMATION SOURCE (unrecogn ized section and content) DATE CREATED AUTHOR 12/23/2017 [facility] DATE CREATED AUTHOR AUTHOR'S ORGANIZ ATION 01/14/2021 [facility] DATE CREATED AUTHOR AUTHOR'S ORGANIZ ATION 03/16/2021 [facility] DATE CREATED AUTHOR AUTHOR'S ORGANIZ ATION 04/02/2021 [facility] DATE CREATED AUTHOR AUTHOR'S ORGANIZ ATION 04/24/2021 [facility] DATE CREATED AUTHOR AUTHOR'S ORGANIZ ATION 11/06/2022 [facility] DATE CREATED AUTHOR AUTHOR'S ORGANIZ ATION 02/25/2023 [facility] DATE CREATED AUTHOR AUTHOR'S ORGANIZ ATION 05/30/2023 [facility] DATE CREATED AUTHOR AUTHOR'S ORGANIZ ATION 05/04/2024 [facility] DATE CREATED AUTHOR AUTHOR'S ORGANIZ ATION 05/09/2024 [facility] DATE CREATED AUTHOR AUTHOR'S ORGANIZ ATION 05/15/2024 [facility] Source Comments (unrecognize d section and content) In the event this informatio n is protected by the Federal Confidentiality of Alcohol and Drug Abuse Patient Records regulations: The Federal rules restrict any use of the information to criminally investigate or prosecute any alcohol or drug abuse patient.[facility] the event this information is protected by the Federal Confidentiality of Alcohol and Drug Abuse Patient Records regulations: The Federal rules restrict any use of the information to criminally investigate or prosecute any alcohol or drug abuse patient.[facility] HospitalIn the event this information is protected by the Federal Confidentiality of Alcohol and Drug Abuse Patient Records regulations: The Federal rules restrict any use of the information to criminally investigate or prosecute any alcohol or drug abuse patient.[facility] HospitalIn the event this information is protected by the Federal Confidentiality of Alcohol and Drug Abuse Patient Records regulations: The Federal rules restrict any use of the information to criminally investigate or prosecute any alcohol or drug abuse patient.[facility] HospitalIn the event this information is protected by the Federal Confidentiality of Alcohol and Drug Abuse Patient Records regulations: The Federal rules restrict any use of the information to criminally investigate or prosecute any alcohol or drug abuse patient.[facility] HospitalIn the event this information is protected by the Federal Confidentiality of Alcohol and Drug Abuse Patient Records regulations: The Federal rules restrict any use of the information to criminally investigate or prosecute any alcohol or drug abuse patient.[facility] HospitalIn the event this information is protected by the Federal Confidentiality of Alcohol and Drug Abuse Patient Records regulations: The Federal rules restrict any use of the information to criminally investigate or prosecute any alcohol or drug abuse patient.[facility] HospitalIn the event this information is protected by the Federal Confidentiality of Alcohol and Drug Abuse Patient Records regulations: The Federal rules restrict any use of the information to criminally investigate or prosecute any alcohol or drug abuse patient.[facility] HospitalIn the event this information is protected by the Federal Confidentiality of Alcohol and Drug Abuse Patient Records regulations: The Federal rules restrict any use of the information to criminally investigate or prosecute any alcohol or drug abuse patient.[facility] HospitalIn the event this information is protected by the Federal Confidentiality of Alcohol and Drug Abuse Patient Records regulations: The Federal rules restrict any use of the information to criminally investigate or prosecute any alcohol or drug abuse patient.[facility] HospitalIn the event this information is protected by the Federal Confidentiality of Alcohol and Drug Abuse Patient Records regulations: The Federal rules restrict any use of the information to criminally investigate or prosecute any alcohol or drug abuse patient.[facility] HospitalIn the event this information is protected by the Federal Confidentiality of Alcohol and Drug Abuse Patient Records regulations: The Federal rules restrict any use of the information to criminally investigate or prosecute any alcohol or drug abuse patient.[facility] HospitalIn the event this information is protected by the Federal Confidentiality of Alcohol and Drug Abuse Patient Records regulations: The Federal rules restrict any use of the information to criminally investigate or prosecute any alcohol or drug abuse patient.[facility] HospitalIn the event this information is protected by the Federal Confidentiality of Alcohol and Drug Abuse Patient Records regulations: The Federal rules restrict any use of the information to criminally investigate or prosecute any alcohol or drug abuse patient.[facility] HospitalIn the event this information is protected by the Federal Confidentiality of Alcohol and Drug Abuse Patient Records regulations: The Federal rules restrict any use of the information to criminally investigate or prosecute any alcohol or drug abuse patient.[facility] HospitalIn the event this information is protected by the Federal Confidentiality of Alcohol and Drug Abuse Patient Records regulations: The Federal rules restrict any use of the information to criminally investigate or prosecute any alcohol or drug abuse patient.[facility] HospitalIn the event this information is protected by the Federal Confidentiality of Alcohol and Drug Abuse Patient Records regulations: The Federal rules restrict any use of the information to criminally investigate or prosecute any alcohol or drug abuse patient.[facility] HospitalIn the event this information is protected by the Federal Confidentiality of Alcohol and Drug Abuse Patient Records regulations: The Federal rules restrict any use of the information to criminally investigate or prosecute any alcohol or drug abuse patient.[facility] HospitalIn the event this information is protected by the Federal Confidentiality of Alcohol and Drug Abuse Patient Records regulations: The Federal rules restrict any use of the information to criminally investigate or prosecute any alcohol or drug abuse patient.[facility] HospitalIn the event this information is protected by the Federal Confidentiality of Alcohol and Drug Abuse Patient Records regulations: The Federal rules restrict any use of the information to criminally investigate or prosecute any alcohol or drug abuse patient.[facility] HospitalIn the event this information is protected by the Federal Confidentiality of Alcohol and Drug Abuse Patient Records regulations: The Federal rules restrict any use of the information to criminally investigate or prosecute any alcohol or drug abuse patient.[facility] HospitalIn the event this information is protected by the Federal Confidentiality of Alcohol and Drug Abuse Patient Records regulations: The Federal rules restrict any use of the information to criminally investigate or prosecute any alcohol or drug abuse patient.[facility] HospitalIn the event this information is protected by the Federal Confidentiality of Alcohol and Drug Abuse Patient Records regulations: The Federal rules restrict any use of the information to criminally investigate or prosecute any alcohol or drug abuse patient.[facility] HospitalIn the event this information is protected by the Federal Confidentiality of Alcohol and Drug Abuse Patient Records regulations: The Federal rules restrict any use of the information to criminally investigate or prosecute any alcohol or drug abuse patient.[facility] HospitalIn the event this information is protected by the Federal Confidentiality of Alcohol and Drug Abuse Patient Records regulations: The Federal rules restrict any use of the information to criminally investigate or prosecute any alcohol or drug abuse patient.[facility] HospitalIn the event this information is protected by the Federal Confidentiality of Alcohol and Drug Abuse Patient Records regulations: The Federal rules restrict any use of the information to criminally investigate or prosecute any alcohol or drug abuse patient.[facility] HospitalIn the event this information is protected by the Federal Confidentiality of Alcohol and Drug Abuse Patient Records regulations: The Federal rules restrict any use of the information to criminally investigate or prosecute any alcohol or drug abuse patient.[facility] HospitalIn the event this information is protected by the Federal Confidentiality of Alcohol and Drug Abuse Patient Records regulations: The Federal rules restrict any use of the information to criminally investigate or prosecute any alcohol or drug abuse patient.[facility] HospitalIn the event this information is protected by the Federal Confidentiality of Alcohol and Drug Abuse Patient Records regulations: The Federal rules restrict any use of the information to criminally investigate or prosecute any alcohol or drug abuse patient.[facility] HospitalIn the event this information is protected by the Federal Confidentiality of Alcohol and Drug Abuse Patient Records regulations: The Federal rules restrict any use of the information to criminally investigate or prosecute any alcohol or drug abuse patient.[facility] HospitalIn the event this information is protected by the Federal Confidentiality of Alcohol and Drug Abuse Patient Records regulations: The Federal rules restrict any use of the information to criminally investigate or prosecute any alcohol or drug abuse patient.[facility] HospitalIn the event this information is protected by the Federal Confidentiality of Alcohol and Drug Abuse Patient Records regulations: The Federal rules restrict any use of the information to criminally investigate or prosecute any alcohol or drug abuse patient.[facility] HospitalIn the event this information is protected by the Federal Confidentiality of Alcohol and Drug Abuse Patient Records regulations: The Federal rules restrict any use of the information to criminally investigate or prosecute any alcohol or drug abuse patient.[facility] HospitalIn the event this information is protected by the Federal Confidentiality of Alcohol and Drug Abuse Patient Records regulations: The Federal rules restrict any use of the information to criminally investigate or prosecute any alcohol or drug abuse patient.[facility] HospitalIn the event this information is protected by the Federal Confidentiality of Alcohol and Drug Abuse Patient Records regulations: The Federal rules restrict any use of the information to criminally investigate or prosecute any alcohol or drug abuse patient.[facility] HospitalIn the event this information is protected by the Federal Confidentiality of Alcohol and Drug Abuse Patient Records regulations: The Federal rules restrict any use of the information to criminally investigate or prosecute any alcohol or drug abuse patient.[facility] HospitalIn the event this information is protected by the Federal Confidentiality of Alcohol and Drug Abuse Patient Records regulations: The Federal rules restrict any use of the information to criminally investigate or prosecute any alcohol or drug abuse patient.[facility] HospitalIn the event this information is protected by the Federal Confidentiality of Alcohol and Drug Abuse Patient Records regulations: The Federal rules restrict any use of the information to criminally investigate or prosecute any alcohol or drug abuse patient.[facility] Reason for Visit (unrecogniz ed section and content) Reason Comments Post Op Specialty Diagnoses / Procedures Referred By Mimi badillo Referred To Contact [facility]PARTMENT Diagnoses POST OP / sx date 08/22. ar Procedures [place] [address] Referral ID Status Reason Start Date Expiration Date Visits Requested Visits Authorized [id number] Authorized Patient Cleared - Qualified 100% FAS 08/14/2023 11/12/2023 99 99 Specialty Diagnoses / Procedures Referred By Contac t Referred To Contact Plastic Surgery / PLASTIC SURGERY Diagnoses postop. ar 07/02/23 per pt, no insurance info for appt today. 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) Procedures FACTOR IX RECOMBINANT Chyna East MD [address] [address] Shaun Treat [facility] [address] [place] [address] Referral ID Status Reason Start Date Expiration Date V isits Requested Visits Authorized [id number] Authorized 07/29/2022 08/27/2022 1 2 Reason Comments Established Patient Reason Comments Clinical Update Reason Comments Results Reason Onset Date Comments Refill Request 10/18/2020 Reason Onset Date Comments Call Back 48 Hours 04/21/2018 Reason Comments Established Patient OV/results Status Reason Specialty Diagnoses / Procedures Referred By Contact Referred To Contact Pending Review OON/Self Pay Override HEMATOLOGY/ONCO LOGY Diagnoses Iron deficiency anemia secondary to blood loss (chronic) Procedures ov f/u jeremiah Chyna East MD [address] [address] Shaun Ag [facility] [address] [place] [address] Reason Onset Date Comments Transition Of Care 01/08/2021 Discharged fr [facility] 01/07/21 Reason Comments Patient Update Reason Comments Laceration Status Reason Specialty Diagnoses / Procedures Referred By Contact Referred To Contact Authorized Diagnoses 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 Lower GI bleed Procedures FACTOR IX RECOMBINANT Chyna Edward MD [address] [address] Shaun [facility] [address] [place] [address] Status Reason Specialty Diagnoses / Procedures Referred By Contact Referred To Contact Authorized Diagnoses 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 Lower GI bleed Procedures FACTOR IX RECOMBINANT Chyna Edward MD [address] [address] Shaun [facility] [address] [place] [address] Reason Comments Edema Reason Onset Date Comments Transition Of Care 04/24/2021 [facility] Discharge 04/23/21 Initial Outreach Covid day 1 Reason Comments Scheduling Reason Comments Patient Question Reason Comments Appointment Reason Comments Non-Chemotherapy Treatment Reason Comments Production Tech - Other Referral ID Status Reason Start Date Expiration Date V isits Requested Visits Authorized [id number] Authorized 11/06/2022 12/04/2022 1 3 Reason Comments Hip Pain Reason Comments LEFT SHOULDER PAIN FACTOR 9 DEFICIENCY Reason Comments Arm Injury Pt arrives via triag e for L arm hematoma. Pt was seen here earlier and was told to come back if it got worse so he returned. Pt has history of hemophilia and has needed factor IX in the past. Reason Onset Date Comments Refill Request 07/30/2023 Specialty Diagnoses / Procedures Referred By Mimi t Referred To Contact [facility] DE[facility] Diagnoses Post-operative state Wound healing, delayed Procedures EVITA SKN SUB GRFT T/A/L AREA/<100SCM /<1ST 25 SCM APPLICATION OF SKIN SUBSTITUTE GRAFT TO ARMS TOTAL WOUND SURFACE AREA UP TO 100 SQ CM FIRST 25 SQ CM OR LESS WOUND SURFACE AREA Kaiden Perez MD [address] [address] [facility] [place] [address] Referral ID Status Reason Start Date Expiration Date Visits Requested Visits Authorized [id number] Authorized Patient Cleared - Qualified 100% FAS 07/16/2023 10/14/2023 99 99 Reason Comments SURGERY ARRIVAL TIME Reason Onset Date Comments Refill Request 08/19/2023 Refill Request 08/21/2023 Reason Comments Question Telephone Encounter - Chyna East - 09/21/2020 3:31 PM EDTTelephone Encounter - Gloria Velazquez - 09/21/2020 11:37 AM EDT Miscellaneous Notes (unrecog nized section and content) noted Mother called to r/s appointment today due to transportation issues from his inpatient facility. documented in this encounter Ordered Prescriptions (unrec ognized section and content) Prescription Sig Dispensed Refills Start Date End Da te cephALEXin (KEFLEX) 500 MG capsule Take 1 capsule by mouth 2 times daily for 7 days 14 capsule 0 02/27/2021 03/06/2021 Scheduled Active and Recently Administ ered Medications (unrecognized section and content) Medication Order 02/25/2021 02/26/2021 02/27/2021 bacitracin ointment Topical, ONCE, On Fri02/27/21 at 1208, For 1 dose, Apply to R index finger 1208 (Due) lidocaine 1 % injection 10 mL (COMPLETED) 10 mL, Other, ONCE, On Fri02/27/21 at 1040, For 1 dose 1141 (Given - Provid er: Bianca Gardner RN) Scheduled Medication Order 02/07/2023 02/08/2023 02/09/2023 droperidol (Inapsine) injection 2.5 mg (COMPLETED) 2.5 mg, IntraVENous, Once, On Fri02/09/23 at 202, For 1 dose 2041 (Given - Provid er: Madison Modi RN) ketamine 100 mg in sodium chloride 0.9 % 50 mL ivpb (COMPLETED) 100 mg (rounded from 102 mg = 1 mg/kg 102 kg), IntraVENous, at 180 mL/hr, Administer over 20 Minutes, Once, On 02/09/23 at 2045, For 1 dose, Infuse at rate as directed by provider 2049 (Given - Provid er: Madison Modi RN) ketamine 31 mg in sodium chloride 0.9 % 50 mL ivpb (COMPLETED) 31 mg (rounded from 30.6 mg = 0.3 mg/kg 102 kg), IntraVENous, at 159.3 mL/hr, Administer over 20 Minutes, Once, On 02/09/23 at 1845, For 1 dose 1854 (Given - Provid er: Madison Modi RN) oxyCODONE-acetaminophen (Percocet) 5-325 MG per tablet 1 tablet (COMPLETED) 1 tablet, Oral, Once, On 02/09/23 at 1200, For 1 dose, Maximum dose of acetaminophen is 4000 mg from all sources in 24 hours. 1230 (Given - Provid er: Andreas Jones RN) oxyCODONE-acetaminophen (Percocet) 5-325 MG per tablet 1 tablet (COMPLETED) 1 tablet, Oral, Once, On 02/09/23 at 1445, For 1 dose, Maximum dose of acetaminophen is 4000 mg from all sources in 24 hours. 1450 (Given - Provid er: Madison Modi RN) PRN Medication Order 02/07/2023 02/08/2023 02/09/2023 iopamidol (Isovue-370) 76 % injection 75 mL (COMPLETED) 75 mL, IntraVENous, IMG once PRN, contrast, Starting on 02/09/23 at 1306, For 1 dose 1404 (Given - Provid er: AMERICO Rosen) Scheduled Medication Order 04/03/2023 04/04/2023 04/05/2023 coagulation factor IX (recomb) (Benefix) injection 4,120 Units (COMPLETED) 4,120 Units, IntraVENous, Once, On 04/05/23 at 0900, For 1 dose, Site of bleed: Muscle 0944 (Given - Provid er: Bartolome Carrillo RN) HYDROcodone-acetaminophen (Clyde) 5-325 MG per tablet 1 tablet (COMPLETED) 1 tablet, Oral, Once, On 04/05/23 at 0755, For 1 dose, Maximum dose of acetaminophen is 4000 mg from all sources in 24 hours. 08 (Given - Provid er: Bartolome Carrillo RN) HYDROmorphone (Dilaudid) injection 1 mg (COMPLETED) 1 mg, IntraVENous, Once, On 04/05/23 at 0915, For 1 dose, If oral and IV narcotics ordered, use oral first and only use IV if oral is ineffective or cannot take oral. Do Not give oral and IV within 1 hour of each other unless specifically ordered. 940 (Given - Provid er: Bartolome Carrillo RN) ondansetron (Zofran) injection 4 mg (COMPLETED) 4 mg, IntraVENous, Once, On 04/05/23 at 0915, For 1 dose 940 (Given - Provid er: Bartolome Carrillo RN) Scheduled Medication Order 04/04/2023 04/05/2023 04/06/2023 acetaminophen (Tylenol) tablet 1,000 mg (COMPLETED) 1,000 mg, Oral, Once, On 04/05/23 at 2240, For 1 dose, Maximum dose of acetaminophen is 4000 mg from all sources in 24 hours. 2243 (Given - Provider: Phoebe Solano LPN) HYDROmorphone (Dilaudid) injection 0.5 mg (COMPLETED) 0.5 mg, IntraVENous, Once, On 04/05/23 at 2245, For 1 dose, If oral and IV narcotics ordered, use oral first and only use IV if oral is ineffective or cannot take oral. Do Not give oral and IV within 1 hour of each other unless specifically ordered. 2244 (Given - Provider: Tim Monreal RN) morphine injection 4 mg (COMPLETED) 4 mg, IntraVENous, Once, On 04/05/23 at 2030, For 1 dose, If oral and IV narcotics ordered, use oral first and only use IV if oral is ineffective or cannot take oral. Do Not give oral and IV within 1 hour of each other unless specifically ordered. 2118 (Given - Provider: Alem Walden RN) ondansetron (Zofran) injection 4 mg (COMPLETED) 4 mg, IntraVENous, Once, On 04/05/23 at 2030, For 1 dose 2118 (Given - Provider: Alem Walden, FRANKIE) sodium chloride 0.9 % bolus 1,000 mL (COMPLETED) 1,000 mL, IntraVENous, at 1,000 mL/hr, Administer over 1 Hours, Once, On 04/05/23 at 2240, For 1 dose 2244 (New Bag - Provider: Swapna Solano LPN)2344 (Stopped - Provider: Sera Ortez, FRANKIE) PRN Medication Order 04/04/2023 04/05/2023 04/06/2023 iopamidol (Isovue-370) 76 % injection 75 mL (COMPLETED) 75 mL, IntraVENous, IMG once PRN, contrast, Starting on 04/05/23 at 2155, For 1 dose 2156 (Given - Provider: AMERICO Wilson) Care Teams (unrecognized sec tion and content) Central Supply Nurse Relationship Specialty Start Date End Date [email or web address] [address] PCP - General 03/03/21 Central Supply Nurse Relationship Specialty Start Date End Date [email or web address] [address] PCP - General 03/03/21 Central Supply Nurse Relationship Specialty Start Date End Date [email or web address] [address] PCP - General 03/03/21 Central Supply Nurse Relationship Specialty Start Date End Date [email or web address] [address] PCP - General 03/03/21 Central Supply Nurse Relationship Specialty Start Date End Date [facility] [address] [place] [id number] PCP - General 03/03/21 Central Supply Nurse Relationship Specialty Start Date End Date [email or web address] [address] PCP - General 03/03/21 Central Supply Nurse Relationship Specialty Start Date End Date [email or web address] [address] PCP - General 03/03/21 Central Supply Nurse Relationship Specialty Start Date End Date [email or web address] [place] [address] PCP - General 03/03/21 Central Supply Nurse Relationship Specialty [place] [address] PCP - General 03/03/21 Team Status: Active Member Role Status Dates No Primary Care Physician Primary Care Provider Active Team Status: Inactive Member Role Status Dates Dr. Stevie Cassidy , DO Emergency Provider Active No Primary Care Physician Primary Care Provider Active Central Supply Nurse Relationship Specialty Start Date End Date Pcp, No, [employer] PCP - General Adult Health 06/23/23 01/28/24 Central Supply Nurse Relationship Specialty Start Date End Date Pcp, No, [employer] PCP - General Adult Health 06/23/23 01/28/24 Central Supply Nurse Relationship Specialty Start Date End Date Pcp, No, [employer] PCP - General Adult Health 06/23/23 01/28/24 Central Supply Nurse Relationship Specialty Start Date End Date Pcp, No, [employer] PCP - General Adult Health 06/23/23 01/28/24 Central Supply Nurse Relationship Specialty Start Date End Date Pcp, No, [employer] PCP - General Adult Health 06/23/23 01/28/24 Central Supply Nurse Relationship Specialty Start Date End Date Pcp, No, [employer] PCP - General Adult Health 06/23/23 01/28/24 Central Supply Nurse Relationship Specialty [place] [address] PCP - General 03/03/21 06/22/23 Pcp, No, [employer] PCP - General Adult Health 06/23/23 01/28/24 Central Supply Nurse Relationship Specialty [place] [address] PCP - General 03/03/21 06/22/23 Goals (unrecognized section and content) Goals may be documented in a n alternate section FOR RECORDS PERTAINING TO PATIENTS WHO ARE OR HAVE BEEN ENROLLED IN A CHEMICAL DEPENDENCY/SUBSTANCEABUSE PROGRAM, SOME INFORMATION MAY BE OMITTED. This clinical summary was aggregated from multiple sources. Caution should be exercised in using it in the provision of clinical care. This summary normalizes information from multiple sources, and as a consequence, information in this document may materially change the coding, format and clinical context of patient data. In addition, data may be omitted in some cases. CLINICAL DECISIONS SHOULD BE BASED ON THE PRIMARY CLINICAL RECORDS. [facility]. provides no warranty or guarantee of the accuracy or completeness of information in this document.
--- OUTSIDE RECORDS SUMMARY | 2025-01-17 22:11 | XMS RPT_ITS | CCD ---
Author Organization [facility] Care Team Providers Care Breaker Oiler Name Role Phone Giselle Alfaro Unavailable Unavailable Bernice Claire DO Unavailable Unavailable Edgar Blum (Res) Primary Care Provider Edgar Blum (Res) Primary Care Provider Viktoria BRANDT, Edgar (Res) Primary Care Provider Yeimy BRANDT, Adeola Engel Primary Care Provider Edgar Blum MD Primary Care Provider Viktoria BRANDT, Egdar Primary Care Provider Africa Cassidy MD Primary Care Provider Edgar Blum MD Unavailable [facility] Primary Care Provider [phone] Unavailable Primary Care Provider Unavailabl e [facility] Primary Care Provider [facility] Primary Care Provider [facility] Primary Care Provider MARIO SWIFT Attending Unavailable MARIO SWIFT Primary Care Unavailable MARIO SWIFT Admitting Unavailable Unavailable Primary Care Provider Unavailabl e [facility] Primary Care Provider [phone] KAYLI, ABIMAEL Attending Unavailable KAYLI, ABIMAEL Admitting Unavailable JESSY ROTHMAN Attending Unavailable ANDREAS SALAZAR Attending Unavailable Pcp CLEANER AND PREPARER, No Primary Care Provider Unavailabl e [facility] Primary Care Provider Pcp CLEANER AND PREPARER, No Primary Care Provider Unavailabl e Unavailable [...] Codeine Drug Allergy 7 Shortness of Breath [facility] Quinolones (antibiotic) (6 sources) Ciprofloxacin Drug Allergy 8 [facility] Work Phone: (20 sources) Ciprofloxacin; Translations: [CIPROFLOXACIN] Drug Allergy 8 [facility] (20 sources) Codeine; Translations: [CODEINE] Drug Allergy 7 Shortness of Breath [facility] (1 source) Codeine Drug Allergy [facility] Repository (1 source) Ciprofloxacin Drug Allergy 4 [facility] Repository (1 source) Codeine Drug Allergy 4 [facility] Repository Medications Current Medications Medication Drug [...] on above: Take 2 tablets by mo [facility] every 4 hours as needed. acetaminophen 325 mg / HYDROcodone bitartrate 5 mg oral tablet (2 sources) Opioid Agonist Start: 3 End: 3 HYDROcodone-acetamino phen ([place]) 5-325 MG per tablet 1 tablet acetaminophen [...] on above: Take 1 capsule by mo [facility] three times a day for 7 [...] W/Diff, Automatedon 03-30 PATH REV Reviewed Normal [facility] Comment on above: Order Comment: A MENDED REPORT 04/15/24 8662 WBC previously reported as: 14.5 H K/mm3 Result Comment: Leuk ocytosis WITH Neutrophilic left shift. Macrocytic anemia. NUMEROUS NRBC's ARE NOTED Clinical correlation necessary. Barry Luciano M.D. 04/16/24 AMENDED REPORT 04/16/24 1435 PATH REV previously reported as: October Performed By: #### M 100.2200 #### [facility] [address] [place], [place], [address] CBC panel Auto (Bld)on 04-16 Erythrocyte distribution width (RBC) [Ratio] 23.0 % High 11.5-15.0 [facility] Comment on above: Order Comment: Speci men Type: BLOOD SPECIMEN Ordering Facility: [facility] Address: [address] [address] Performed By: #### 5 8410-2, 64175-8 #### [facility] CLIA [id number] [address] [place] [address] [place] Hematocrit (Bld) [Volume fraction] 26.7 % Low 39.0-51.0 [facility] Comment on above: Order Comment: Speci men Type: BLOOD SPECIMEN Ordering Facility: [facility] Address: [address] [address] Performed By: #### 5 8410-2, 64827-0 #### [facility] CLIA [id number] [address] [place] [address] [place] Hemoglobin (Bld) [Mass/Vol] 8.4 g/dL Low 13.0-17.0 [facility] Comment on above: Order Comment: Speci men Type: BLOOD SPECIMEN Ordering Facility: [facility] Address: [address] [place] [address] Performed By: #### 5 8410-2, 78471-3 #### [facility] CLIA [id number] [address] [place] [address] [place] MCH (RBC) [Entitic mass] 30.0 pg Normal 26.0-34.0 [facility] Comment on above: Order Comment: Speci men Type: BLOOD SPECIMEN Ordering Facility: [facility] Address: [address] [place] [address] Performed By: #### 5 8410-2, 68480-3 #### [facility] CLIA [id number] [address] [place] [address] OF [place] MCHC (RBC) [Mass/Vol] 31.5 g/dL Normal 30.5-36.0 [facility] Comment on above: Order Comment: Speci men Type: BLOOD SPECIMEN Ordering Facility: [facility] Address: [address] [place] [address] Performed By: #### 5 8410-2, 08589-6 #### [facility] CLIA [id number] [address] [place] [address] [place] MCV (RBC) [Entitic vol] 95.4 fL Normal 80.0-100.0 [facility] Comment on above: Order Comment: Speci men Type: BLOOD SPECIMEN Ordering Facility: [facility] Address: [address] [place] [address] Performed By: #### 5 8410-2, 33266-0 #### [facility] CLIA [id number] [address] [place] [address] [place] Nucleated RBC (Bld) [#/Vol] 0.71 10*3/uL High <0.01 [facility] Comment on above: Order Comment: Speci men Type: BLOOD SPECIMEN Ordering Facility: [facility] Address: [address] [place] [address] Performed By: #### 5 8410-2, 09335-5 #### [facility] CLIA [id number] [address] [place] [address] [facility] OF [place] Platelet mean volume (Bld) [Entitic vol] 9.2 fL Normal 9.0-12.7 [facility] Comment on above: Order Comment: Speci men Type: BLOOD SPECIMEN Ordering Facility: [facility] Address: [address] [place] [address] Performed By: #### 5 8410-2, 67759-1 #### [facility] CLIA [id number] [address] [place], [place] [address] [facility] OF [place] Platelets (Bld) [#/Vol] 451 10*3/uL High 150-400 [facility] Comment on above: Order Comment: Speci men Type: BLOOD SPECIMEN Ordering Facility: [facility] Address: [address] [place], [place] [address] Performed By: #### 5 8410-2, 87581-9 #### [facility] CLIA [id number] [address] [place] [address] [place] RBC (Bld) [#/Vol] 2.80 10*6/uL Low 4.20-6.00 [facility] Comment on above: Order Comment: Speci men Type: BLOOD SPECIMEN Ordering Facility: [facility] Address: [address] [place] [address] Performed By: #### 5 8410-2, 06783-5 #### [facility] CLIA [id number] [address] [place], [place] [address] [facility] OF [place] WBC (Bld) [#/Vol] 12.78 10*3/uL High 3.70-11.00 [facility] Comment on above: Order Comment: Speci men Type: BLOOD SPECIMEN Ordering Facility: [facility] Address: [address] [place] [address] Performed By: #### 5 8410-2, 26382-4 #### [facility] CLIA [id number] [address] [place], [place] [address] [facility] CONSULTon 04-16-2024 CONSULT HNO ID: [id number] Author: MARY BOLANOS MD Service: Neurology General [...] seen f at the outside facility at [facility] and was scheduled to receive infusion for [...] 03/24/2018 Added automatically from request for surgery [id number] Denisse disease (HCC) Depression Drug abuse (HCC) [...] car 1 day after being d/c from [employer] PAST SURGICAL HISTORY Procedure Laterality Date COLON [...] fine t (more content not included)... Normal [facility] CONSULT HNO ID: [id number] Author: MIKE QUINN MD Service: Hematology/Oncology Author [...] 14%. Most recently, patient was admitted to [facility] 04/10 through 04/13 with altered mental status [...] signed out AMA. Patient was transferred from [facility] for neurology and hematology evaluation. There was concern for subacute CVA, but MRI of the brain did not show any acute or subacute ischemic stroke. While at [facility], patient fell and hit his head [...] 03/24/2018 Added automatically from request for surgery [id number] Denisse disease (HCC) Depression Drug abuse (HCC) [...] car 1 day after being d/c from [facility] PAST SURGICAL HISTORY Procedure Laterality Date COLON [...] 04/15/2024 Al (more content not included)... Normal [facility] Comprehensive metabolic 2000 panelon 04-16-2024 Albumin [Mass/Vol] 3.1 g/dL Low 3.2-5.0 [facility] Comment on above: Order Comment: Speci men Type: BLOOD SPECIMEN Ordering Facility: [facility] Address: [address] [place] [address] Performed By: #### 2 4323-8, 2132-9, 2276-4, 74859-7 #### [facility] CLIA [id number] [address] [place] [address] [place] [facility] ALP [Catalytic activity/Vol] 79 U/L Normal 45-117 [facility] Comment on above: Order Comment: Speci men Type: BLOOD SPECIMEN Ordering Facility: [facility] Address: [address] [place] [address] Performed By: #### 2 4323-8, 2-9, 6-4, 38185-0 #### [facility] CLIA [id number] [address] [place] [address] [place] ALT [Catalytic activity/Vol] 45 U/L Normal 13-61 [facility] Comment on above: Order Comment: Speci men Type: BLOOD SPECIMEN Ordering Facility: [facility] Address: [address] [place] [address] Result Comment: Resu lts may be falsely depressed after the administration of Sulfasalazine and/or Sulfapyridine. Performed By: #### 2 4323-8, 2131-9, 2275-4, 17370-7 #### [facility] CLIA [id number] [address] [place] [address] Anion gap [Moles/Vol] 9 mmol/L Normal 5-16 [facility] Comment on above: Order Comment: Luis Danieli caitie Type: BLOOD SPECIMEN Ordering Facility: [facility] Address: [address] [place] [address] Performed By: #### 2 4323-8, 2131-9, 2275-4, 39762-3 #### [facility] CLIA [id number] [address] [place] [address] AST [Catalytic activity/Vol] 62 U/L High 8-34 [facility] Comment on above: Order Comment: Speci caitie Type: BLOOD SPECIMEN Ordering Facility: [facility] Address: [address] [place] [address] Result Comment: Resu lts may be falsely depressed after the administration of Sulfasalazine and/or Sulfapyridine. Performed By: #### 2 4323-8, 2131-9, 2275-4, 51292-5 #### [facility] CLIA [id number] [address] [place], [place] [address] [place] Bilirubin [Mass/Vol] 4.6 mg/dL High 0.2-1.0 [facility] Comment on above: Order Comment: Speci men Type: BLOOD SPECIMEN Ordering Facility: [facility] Address: [address] [place] [address] Performed By: #### 2 4323-8, 9, 2275-4, 41964-3 #### [facility] CLIA [id number] [address] [place], [place] [address] [place] Calcium [Mass/Vol] 8.7 mg/dL Normal 8.5-10.5 [facility] Comment on above: Order Comment: Speci men Type: BLOOD SPECIMEN Ordering Facility: [facility] Address: [address] [place] [address] Performed By: #### 2 4323-8, 9, 2275-4, 48132-4 #### [facility] CLIA [id number] [address] [place], [place] [address] [place] Chloride [Moles/Vol] 107 mmol/L Normal 98-107 [facility] Comment on above: Order Comment: Speci men Type: BLOOD SPECIMEN Ordering Facility: [facility] Address: [address] [place] [address] Performed By: #### 2 4323-8, 9, 2275-4, 54944-1 #### [facility] CLIA [id number] [address] [place] [address] [place] CO2 [Moles/Vol] 24 mmol/L Normal 21-32 [facility] Comment on above: Order Comment: Speci men Type: BLOOD SPECIMEN Ordering Facility: [facility] Address: [address] [place] [address] Performed By: #### 2 4323-8, 9, 2275-4, 77859-9 #### [facility] CLIA [id number] [address] [place] [address] [place] Creatinine [Mass/Vol] 0.87 mg/dL Normal 0.50-1.40 [facility] Comment on above: Order Comment: Kartik blood Type: BLOOD SPECIMEN Ordering Facility: [facility] Address: [address] [place] [address] Result Comment: Joselyn ents receiving either N-Acetylcysteine (NAC) or Metamizole prior to venipuncture, may have falsely depressed results. Performed By: #### 2 4323-8, 2-9, 6-4, 01263-0 #### [facility] CLIA [id number] [address] [place] [address] Creatinine and Glomerular filtration rate.predicted panel (S/P/Bld) 101 mL/min/1.73m??? Normal >=60 [facility] Comment on above: Order Comment: Kartik blood Type: BLOOD SPECIMEN Ordering Facility: [facility] Address: [address] [place] [address] Result Comment: Mariaa mated Glomerular Filtration Rate [...] Performed By: #### 2 4323-8, 2-9, 6-4, 83498-9 #### [facility] CLIA [id number] [address] [place], [place] [address] [place] Glucose [Mass/Vol] 93 mg/dL Normal 70-100 [facility] Comment on above: Order Comment: Kartik blood Type: BLOOD SPECIMEN Ordering Facility: [facility] Address: [address] [place] [address] Result Comment: The [place] Diabetes Association (ADA) provides guidance for cutoff [...] Standards of Medical Care in Diabetes 2016, [employer] Diabetes Association. Diabetes Care. 2016.39(Suppl 1). Results may be falsely elevated after the administration of Sulfapyridine. Results may be falsely depressed after the administration of Sulfasalazine. Performed By: #### 2 4323-8, 9, 2275-4, 24118-2 #### [facility] CLIA [id number] [address] [place] [address] [place] Potassium [Moles/Vol] 4.3 mmol/L Normal 3.5-5.1 [facility] Comment on above: Order Comment: Kartik blood Type: BLOOD SPECIMEN Ordering Facility: [facility] Address: [address] [place] [address] Performed By: #### 2 4323-8, 9, 2275-, 32425-4 #### [facility] CLIA [id number] [address] [place] [address] [place] Protein [Mass/Vol] 6.5 g/dL Normal 6.0-8.5 [facility] Comment on above: Order Comment: Kartik blood Type: BLOOD SPECIMEN Ordering Facility: [facility] Address: [address] [place] [address] Performed By: #### 2 4323-8, 9, 4, 21030-7 #### [facility] CLIA [id number] [address] [place], [place] [address] [place] Sodium [Moles/Vol] 140 mmol/L Normal 136-145 [facility] Comment on above: Order Comment: Kartik blood Type: BLOOD SPECIMEN Ordering Facility: [facility] Address: [address] [place] [address] Performed By: #### 2 4323-8, 9, 4, 22571-0 #### [facility] CLIA [id number] [address] [place] [address] [place] Urea nitrogen [Mass/Vol] 13 mg/dL Normal 7-26 [facility] Comment on above: Order Comment: Speci men Type: BLOOD SPECIMEN Ordering Facility: [facility] Address: [address] [place], [place] [address] [id number] Performed By: #### 2 4323-8, 2-9, 6-4, 28915-9 #### [facility] CLIA [id number] [address] [place], [place] [address] [place] Culture, Blood (WB)on 2023 CUB No growth in 5 days. Normal [facility] Comment on above: Performed By: #### L 503.6005, M200.1000 #### [facility] [address] [place], [address] Fact IX Act/Nor PPPon 2023 Coagulation factor IX activity actual/normal Coag (PPP) [Relative time] 15 % Low 77-173 [facility] Comment on above: Order Comment: Speci men Type: BLOOD SPECIMEN Ordering Facility: [facility] Address: [address] [place], [place] [address] [address] Performed By: #### 2 4323-8, 2-9, 6-4, 79476-4 #### [facility] CLIA [id number] [address] [place], [place] [address] [place] Ferritin SerPl-mCncon 2023 Ferritin [Mass/Vol] 113.5 ng/mL Normal 24.0-388.0 [facility] Comment on above: Order Comment: Speci men Type: BLOOD SPECIMEN Ordering Facility: [facility] Address: [address] [place], [place] [address] [address] Performed By: #### 2 4323-8, 2-9, 6-4, 55026-2 #### [facility] CLIA [id number] [address] [place], [place] [address] [place] Folate SerPl-mCncon 04-16-20 Folate [Mass/Vol] 19.2 ng/mL Normal >3.0 [facility] Comment on above: Order Comment: Speci men Type: BLOOD SPECIMEN Ordering Facility: [facility] Address: [address] [place] [address] Performed By: #### 5 8410-2, 18909-2 #### [facility] CLIA [id number] [address] [address] [place] HISTORY PHYSICALon HISTORY PHYSICAL HNO ID: [id number] Author: ALEXIA ANNE DO Service: Hospital Medicine Author Type: Nurse Practitioner Type: H&P Filed: 04/16/2024 07:30 Note Text: Attestation signed by Alexia Anne DO at 04/16/2024 7:30 AM Discussed with the transfer center and outstanding ER and coordinated this patient's admission with a substantive portion performed by the CLEANER AND PREPARER.CHORAL DIRECTOR under my advisement HISTORY AND PHYSICAL EXAMINATION SERVICE DATE: 04/16/2024 SERVICE TIME: 2:55 AM PRIMARY CARE PHYSICIAN: No primary care provider on file. SUBJECTIVE: CHIEF COMPLAINT: Transfer from [facility] due to subacute CVA and recent rectal bleeding in setting of hemophilia B. Transfer for neurology and hematology consultation, MRI of the brain. HPI: This is a 58 year old male who presents via transfer from [facility] for neurology and hematology evaluation. Patient has recent history of subacute CVA. 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 He developed some hematomas and actually potential compartmental syndrome in the upper extremities. He has had continued right hemiparesis and some speech difficulty since his CVA. 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 He subsequently signed himself out AGAINST MEDICAL ADVICE from [facility] Prior to receiving infusions. While at [facility] he fell and hit his head [...] appear under the influence as well. 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 Normal [facility] Iron and Iron binding capaci ty panelon 04-16-2024 Iron [Mass/Vol] 70 ug/dL Normal 65-175 [facility] Comment on above: Order Comment: Kartik blood Type: BLOOD SPECIMEN Ordering Facility: [facility] Address: [address] [place], [place] [address] Result Comment: Joselyn ents treated with metal-binding drugs (e.g.deferoxamine) may have depressed iron values, as chelated iron may not properly react in the Siemens iron assay. Performed By: #### 2 4323-8, 2132-9, 2276-4, 94824-8 #### [facility] CLIA [id number] [address] [place] [address] [place] Iron binding capacity [Mass/Vol] 353 ug/dL Normal 221-481 [facility] Comment on above: Order Comment: Kartik blood Type: BLOOD SPECIMEN Ordering Facility: [facility] Address: [address] [address] Performed By: #### 2 4323-8, 2132-9, 2276-4, 89243-8 #### [facility] CLIA [id number] [address] [place] [address] [place] Iron/TIBC [Molar ratio] 19.8 % Low 22.0-44.0 [facility] Comment on above: Order Comment: Speci men Type: BLOOD SPECIMEN Ordering Facility: [facility] Address: [address] [place] [address] Performed By: #### 2 4323-8, 2132-9, 2276-4, 17876-7 #### [facility] CLIA [id number] [address] [place] [address] [place] MRI BRAIN WO IVCONon 1018-2 024 MRI BRAIN WO IVCON * * *Final Report* * * DATE OF EXAM: Apr 16 2024 8:23AM [facility] 0294 - MRI BRAIN WO IVCON / [...] motion artifact. Chronic parenchymal changes, as detailed. Document Management Technician: LEAH Transcribe Date/Time: Apr 16 2024 9:01A Dictated by : KAIDEN MCLAIN MD This examination was interpreted and the report reviewed and electronically signed by: KAIDEN MCLAIN MD on Apr 16 2024 9:13AM EST [id number] Normal [facility] PT panel Coag (PPP)on 2023 INR Coag (PPP) [Relative time] 1.0 {INR} Normal 0.9-1.3 [facility] Comment on above: Order Comment: Speci men Type: BLOOD SPECIMEN Ordering Facility: [facility] Address: [address] [place] [address] Result Comment: Renee min K Antagonist (VKA) Therapeutic Range: INR 2 to 3 (Target INR of 2.5) Note: For patients treated with VKA drugs, such as warfarin, the [employer] 2012 Guideline recommends [...] 70: 252-289 Performed By: #### 3 4528-0, 37371-4 #### [facility] CLIA [id number] [facility] [address] [place] PT Coag (PPP) [Time] 11.2 s Normal 9.7-13.0 [facility] Comment on above: Order Comment: Speclorrie blood Type: BLOOD SPECIMEN Ordering Facility: [facility] Address: [facility] [place] [address] Performed By: #### 3 4528-0, 13784-1 #### [facility] CLIA [id number] [address] [place] [address] Retics #on 04-16-2024 Reticulocytes (Bld) [#/Vol] 0.00240 10*3/uL High 0.018-0.10 0 [facility] Comment on above: Order Comment: Kartik blood Type: BLOOD SPECIMEN Ordering Facility: [facility] Address: [address] [place], [place] [address] [address] Performed By: #### 5 8410-2, 49981-1 #### [facility] CLIA [id number] [address] [place] [address] Reticulocytes (Bld) [#/Vol]o n 04-16-2024 Reticulocytes/100 RBC (Bld) 11.2 % High 0.4-2.0 [facility] Comment on above: Order Comment: Kartik blood Type: BLOOD SPECIMEN Ordering Facility: [facility] Address: [address] [place] [address] Performed By: #### 5 8410-2, 70563-1 #### [facility] CLIA [id number] [address] [place] [address] THERAPY NTon 04-16-2024 THERAPY NT HNO ID: [id number] Author: PETEY ARIAS, OTR/L Service: Occupational Therapy Author Type: Occupational Therapist Type: Therapy (PT/OT/Speech/Resp) Filed: 04/16/2024 16:22 Note Text: Occupational Therapy Evaluation Summary SERVICE DATE: 04/16/2024 SERVICE TIME: 1514 to 1530 ROOM: [id number] OT 6 Clicks Score: 21 DISCHARGE RECOMMENDATIONS [...] Wheeled PRIOR FUNCTIONAL LEVEL Within Functional Limits LANGUAGE PATH indep with ADL. x 4 falls in [...] of Occupational Therapy, Sitting Balance to Improve [place]irt with ADLs/Self-Care, Standing Balance to Improve [place] with ADLs/Self-Care, Transfer - Sit to Stand, [...] will demonstrate unde (more content not included)... [facility] THERAPY NT HNO ID: [id number] Author: BILLIE BEGUM, PT, DPT Service: Physical Therapy Author Type: Physical Therapist Type: Therapy (PT/OT/Speech/Resp) Filed: 04/16/2024 15:52 Note Text: Physical Therapy Evaluation Summary SERVICE DATE: 04/16/2024 SERVICE TIME: 1428 to 1453 ROOM: [place] [address] PT 6 Clicks Score: 21 DISCHARGE RECOMMENDATIONS [...] ww for all ambulation. Rechommend home with [facility] PRECAUTIONS Fall Risk weakness CURRENT HOSPITAL COURSE [...] Wheeled PRIOR FUNCTIONAL LEVEL Within Functional Limits LANGUAGE PATH indep with ADL. x 4 falls in last year- due to bilat LE weakness. Indep with ADL. Shares cooking and cleaning with SO. SUBJECTIVE THERAPY DIAGNOSIS Reduced mobility-other TREATMENT INTERVENTIONS Evaluation, Therapeutic Activity (57963) Timed Code Treatment (minutes): 10 Skilled Treatment [...] April 16, 2024 TIME: 3:52 PM Normal [facility] THERAPY NT HNO ID: [id number] Author: CHEPE DUARTE CCC-SUPERVISOR SHUTTLE PREPARATION Service: Speech/Swallow Author Type: Speech Language Pathologist Type: Therapy (PT/OT/Speech/Resp) Filed: 04/16/2024 11:14 Note Text: SPEECH THERAPY MISSED VISIT SERVICE DATE: 04/16/2024 SERVICE TIME: 1110 ROOM: [place] [address] Patient not seen due to Clinical Appropriateness (Recieved order per stroke protocol. Spoke with nursing who reported stroke has been ruled out and pt without difficulty with swallowing/speech. Will discharge at this time.). SIGNATURE: Chepe Duarte CCC-SUPERVISOR SHUTTLE PREPARATION PATIENT NAME: Isidro Smith DATE: April 16, 2024 TIME: 11:14 AM Normal [facility] Urine Cultureon 04-16-2024 URC Culture exhibits no growth. Normal [facility] Comment on above: Performed By: #### M 100.2200 #### [facility] [address] [facility] [place], [address] Vit B12 SerPl-mCncon 024 Cobalamin (Vitamin B12) [Mass/Vol] 784 pg/mL Normal 193-986 [facility] Comment on above: Order Comment: Speci men Type: BLOOD SPECIMEN Ordering Facility: [facility] Address: [address] [place] [address] Performed By: #### 2 4323-8, 2132-9, 2276-4, 32245-5 #### [facility] CLIA [id number] [address] [place] [address] [place] aPTT PPPon 04-16-2024 aPTT Coag (PPP) [Time] 32.2 s Normal 23.0-32.4 [facility] Comment on above: Order Comment: Speci men Type: BLOOD SPECIMEN Ordering Facility: [facility] Address: [address] [place] [address] Performed By: #### 3 4528-0, 25466-6 #### [facility] CLIA [id number] [address] [place] [address] [place] Basic Metabolic Profile (BMP )on 04-15-2024 BUN/CRE 13.5 RATIO Normal 10-20 [facility] Comment on above: Order Comment: 'TROP ' Serial specimen #1, #2 or #3: 1 Performed By: #### L 505.5000 #### [facility] [address] [place], [address] CA,Total 8.8 mg/dL Normal 8.5-10.1 [facility] Comment on above: Order Comment: 'TROP ' Serial specimen #1, #2 or #3: 1 Performed By: #### L 505.5000 #### [facility] [address] [place], [address] Chloride [Moles/Vol] 109 mmol/L High 98-107 [facility] Comment on above: Order Comment: 'TROP ' Serial specimen #1, #2 or #3: 1 Performed By: #### L 505.5000 #### [facility] [address] [place], [address] CO2 [Moles/Vol] 26.0 mmol/L Normal 21.0-32.0 [facility] Comment on above: Order Comment: 'TROP ' Serial specimen #1, #2 or #3: 1 Performed By: #### L 505.5000 #### [facility] [address] [place], [address] Creatinine [Mass/Vol] 1.11 mg/dL Normal 0.70-1.30 [facility] Comment on above: Order Comment: 'TROP ' Serial specimen #1, #2 or #3: 1 Result Comment: The validity of the calculated GFR GFRAA in patients over 70 years has not been determined. Clinical correlation is essential. Performed By: #### L 505.5000 #### [facility] [address] [place], [address] ECRCL 89.58 ml/min Normal [facility] Comment on above: Order Comment: 'TROP ' Serial specimen #1, #2 or #3: 1 Performed By: #### L 505.5000 #### [facility] [address] [place], [address] EST GFR - AA 88 mL/min Normal >60 [facility] Comment on above: Order Comment: 'TROP ' Serial specimen #1, #2 or #3: 1 Result Comment: Afri can Irish GFR Calc Performed By: #### L 505.5000 #### [facility] [address] [place], [address] GAP 5 Normal 5-15 [facility] Comment on above: Order Comment: 'TROP ' Serial specimen #1, #2 or #3: 1 Performed By: #### L 505.5000 #### [facility] [address] [place], [address] GFR/1.73 sq M.predicted among non-blacks MDRD (S/P/Bld) [Vol rate/Area] 72 mL/min/{1.73_m2} Normal >60 [facility] Comment on above: Order Comment: 'TROP ' Serial specimen #1, #2 or #3: 1 Result Comment: Non- GFR Calc Performed By: #### L 505.5000 #### [facility] [address] [place], [address] Glucose [Mass/Vol] 104 mg/dL Normal 74-106 [facility] Comment on above: Order Comment: 'TROP ' Serial specimen #1, #2 or #3: 1 Result Comment: Fast ing Glucose result from 100 to 125 mg/dL suggests IMPAIRED HOMEOSTASIS per A.D.A. criteria. Performed By: #### L 505.5000 #### [facility] [address] [place], [address] Potassium [Moles/Vol] 4.1 mmol/L Normal 3.5-5.1 [facility] Comment on above: Order Comment: 'TROP ' Serial specimen #1, #2 or #3: 1 Result Comment: Slig ht Hemolysis, Result may be falsely increased. Performed By: #### L 505.5000 #### [facility] [address] [place], [address] Sodium [Moles/Vol] 140 mmol/L Normal 136-145 [facility] Comment on above: Order Comment: 'TROP ' Serial specimen #1, #2 or #3: 1 Performed By: #### L 505.5000 #### [facility] [address] [place], [address] Urea nitrogen [Mass/Vol] 15 mg/dL Normal 7-18 [facility] Comment on above: Order Comment: 'TROP ' Serial specimen #1, #2 or #3: 1 Performed By: #### L 505.5000 #### [facility] [address] [place], [address] Brain/Head without Contrasto n 04-15-2024 Brain/Head without Contrast [facility] Imaging Services [address] [address] Brain/Head without Contrast MR#: [id number] Acct: [id number] Name: ISIDRO SMITH Rep #: [id number] : 1965 M 58 From: Servando holliday MD PCP: Care Physician,No Primary Status: REG ER Study: Brain/Head without Contrast Date of Exam: 03/30 01/20 Exam# [id number] Ordering Dr: Kevin Sanchez MD -[id number] STUDY: CT BRAIN WITHOUT CONTRAST REASON FOR [...] Kevin Sanchez MD; No Primary Care Physician Document Management Technician: Signed Normal [facility] Brain/Head without Contrast [facility] Imaging Services [address] [place] [address] Brain/Head without Contrast MR#: [id number] Acct: [id number] Name: ISIDRO SMITH Rep #: [id number] : 1965 M 58 From: Servando holliday MD PCP: Care Physician,No Primary Status: REG ER Study: Brain/Head without Contrast Date of Exam: 03/30 01/20 Exam# [id number] Ordering Dr: Kevin Sanchez MD -[id number] STUDY: CT BRAIN WITHOUT CONTRAST REASON FOR [...] Kevin Sanchez MD; No Primary Care Physician Document Management Technician: Signed Normal [facility] CNPNon 04-15-2024 CNPN Normal [facility] CPK Total, Creatine Kinaseon 04-15-2024 CPK TOTAL 245 U/L Normal 39-308 [facility] Comment on above: Order Comment: 'TROP ' Serial specimen #1, #2 or #3: 1 Performed By: #### L 505.5000 #### [facility] [address] [facility]. [place], [place], [address] CT Chest, Abd, Pel w/Contras ton 04-15-2024 CT Chest, Abd, Pel w/Contrast [facility] Imaging Services [address] [place], [place] [address] CT Chest, Abd, Pel w/Contrast MR#: [id number] Acct: [id number] Name: ISIDRO SMITH Rep #: [id number] : 1965 M 58 From: Servando holliday MD PCP: Care Physician,No Primary Status: [facility] ER Study: CT Chest, Abd, Pel w/Contrast Date of Exam: Exam# [id number] Ordering Dr: Kevin Sanchez MD -[id number] EXAM: CT CHEST, ABDOMEN AND PELVIS WITH [...] Kevin Sanchez MD; No Primary Care Physician Document Management Technician: Signed Normal [facility] Emergency Department Summary on 04-15-2024 Emergency Department Summary [facility] Medical Records Department [address] [place] [address] Emergency Department Summary 04/15/24 MR#: [id number] Acct: [id number] Name: ISIDRO SMITH Rep #: [id number] : 1965 58 From: Kevin Sanchez MD PCP: Care Physician,No Primary Status:REG ER Location: ED HPI History of Present Illness Chief Complaint: Upper Extremity Injury Informant: patient and EMS Narrative Narrative: 58-year-old male had a fall down a flight of steps a week ago, he has [place] disease, he sustained a hematoma to his right shoulder and was transferred to [facility] Because we do not have any factor [...] other details. Denies any loss of consciousness. [facility] Medical History Hx of fracture of wrist [...] Questions ( (more content not included)... Normal [facility] L501.4020on 04-15-2024 TROPONIN-I HS 10 pg/mL Normal 3.0-78.0 [facility] Comment on above: Order Comment: 'TROP ' Serial specimen #1, #2 or #3: 1 Result Comment: Clau iverson Note: New Test Units and Gender Specific Reference Ranges. For more information see Policy Stat Procedure [place] High Sensitivity Troponin (TNIH) and attachments. Performed By: #### L 505.5000 #### [facility] [address] [place], [address] Prothrombin Time w/INRon INR Coag (PPP) [Relative time] 1.0 {INR} Normal [facility] Comment on above: Performed By: #### M 100.2200 #### [facility] [address] [place], [address] PT Coag (PPP) [Time] 13.6 s Normal 11.7-14.9 [facility] Comment on above: Performed By: #### M 100.2200 #### [facility] [address] [place], [address] Spine Cervical without Contr ason 04-15-2024 Spine Cervical without Contras [facility] Imaging Services [address] [place] [address] Spine Cervical without Contras MR#: [id number] Acct: [id number] Name: ISIDRO SMITH Rep #: [id number] : 1965 M 58 From: Servando holliday MD PCP: Care Physician,No Primary Status: REG ER Study: Spine Cervical without Contras Date of Exam: Exam# [id number] Ordering Dr: Kevin Sanchez MD -[id number] STUDY: CT CERVICAL SPINE WITHOUT CONTRAST REASON [...] Kevin Sanchez MD; No Primary Care Physician Document Management Technician: Signed Normal [facility] Type AND Screenon 04-15-2024 Ab SCREEN GEL Negative Normal [facility] Comment on above: Order Comment: T Performed By: #### M 100.2200 #### [facility] [address] [place], [place], [address] Urinalysis, Completeon 04-15 AMORPHOUS R Normal [facility] Comment on above: Order Comment: CLEAN CATCH Performed By: #### L 400.0001 #### [facility] [address] [place], [address] BACTERIA 2+ /hpf Normal None Seen [facility] Comment on above: Order Comment: CLEAN CATCH Performed By: #### L 400.0001 #### [facility] [address] [place], [address] EPI,SQUAMOUS 0 SEEN Normal 0-5 [facility] Comment on above: Order Comment: CLEAN CATCH Performed By: #### L 400.0001 #### [facility] [address] [place], [address] Mucus Ql (Urine sed) 0 SEEN Normal [facility] Comment on above: Order Comment: CLEAN CATCH Performed By: #### L 400.0001 #### [facility] [address] [place], [address] RBC 0 SEEN Normal 0-5 [facility] Comment on above: Order Comment: CLEAN CATCH Performed By: #### L 400.0001 #### [facility] [address] [place] [id number] WBC 0 SEEN Normal 0-5 [facility] Comment on above: Order Comment: CLEAN CATCH Performed By: #### L 400.0001 #### [facility] [address] [place] [address] Urine Drug Screen (VISTA)on 04-15-2024 AMPHETAMINES Positive Abnormal <1000 ng/mL [facility] Comment on above: Performed By: #### L 505.5000 #### [facility] [address] [place] [address] BARBITIURATES Negative Normal < 200 ng/mL [facility] Comment on above: Performed By: #### L 505.5000 #### [facility] [address] [place] [address] BENZODIAZIPINE Positive Abnormal < 200 ng/mL [facility] Comment on above: Performed By: #### L 505.5000 #### [facility] [address] [place] [address] COCAINE Negative Normal < 300 ng/mL [facility] Comment on above: Performed By: #### L 505.5000 #### [facility] [address] [place] [address] ECSTACY Positive Abnormal < 500 ng/mL [facility] Comment on above: Performed By: #### L 505.5000 #### [facility] [address] [place] [address] METHADONE Negative Normal < 300 ng/mL [facility] Comment on above: Performed By: #### L 505.5000 #### [facility] [address] [place], [address] OPIATES Negative Normal < 300 ng/mL [facility] Comment on above: Performed By: #### L 505.5000 #### [facility] [address] [place], [address] PCP Positive Abnormal < 25 ng/mL [facility] Comment on above: Performed By: #### L 505.5000 #### [facility] [address] [place], [address] THC Negative Normal < 50 ng/mL [facility] Comment on above: Performed By: #### L 505.5000 #### [facility] [address] [place], [address] VISTA UDS PH 6 Normal [facility] Comment on above: Performed By: #### L 505.5000 #### [facility] [address] [place], [address] Basic metabolic 2000 panelon 04-13-2024 Anion gap [Moles/Vol] 10 mmol/L Normal 8-15 [facility] Comment on above: Order Comment: Speci men Type: BLOOD SPECIMENOrdering Facility: [facility] Address: [address] [place] [address] Performed By: #### 2 4321-2 ####[facility] [id number] [place] [address] [place] Calcium [Mass/Vol] 8.0 mg/dL Low 8.5-10.2 [facility] Comment on above: Order Comment: Speci men Type: BLOOD SPECIMENOrdering Facility: [facility] Address: [facility] [place] [address] Performed By: #### 2 4321-2 ####[facility] [id number] [place] [address] [place] Chloride [Moles/Vol] 105 mmol/L Normal 98-107 [facility] Comment on above: Order Comment: Speci men Type: BLOOD SPECIMENOrdering Facility: [facility] Address: [address] [place] [address] Performed By: #### 2 4321-2 ####[facility] [place] [facility]ATORYCLIA [id number] [place] [id number] [place] CO2 [Moles/Vol] 24 mmol/L Normal 22-30 [facility] Comment on above: Order Comment: Speci men Type: BLOOD SPECIMENOrdering Facility: [facility] Address: [address] [place] [address] Performed By: #### 2 4321-2 ####[facility] [place] [place] [facility]ATORYCLIA [id number] [address] Creatinine [Mass/Vol] 0.90 mg/dL Normal 0.73-1.22 [facility] Comment on above: Order Comment: Speci men Type: BLOOD SPECIMENOrdering Facility: [facility] Address: [address] [place] [address] Performed By: #### 2 4321-2 ####[facility] [place] LAB[facility]ATORYCLIA [id number] [address] Creatinine and Glomerular filtration rate.predicted panel (S/P/Bld) 100 mL/min/1.73m??? Normal >=60 [facility] Comment on above: Order Comment: Speci men Type: BLOOD SPECIMENOrdering Facility: [facility] Address: [address] [place] [address] Result Comment: Mariaa mated Glomerular Filtration Rate [...] actual GFR. Performed By: #### 2 4321-2 ####[facility] [place] [facility]ATORYCLIA [id number] [place] [id number] [place] Glucose [Mass/Vol] 99 mg/dL Normal 74-99 [facility] Comment on above: Order Comment: Speci caitie Type: BLOOD SPECIMENOrdering Facility: [facility] Address: [address] [place] [id number] Result Comment: The [place] Diabetes Association (ADA) provides guidance for cutoff [...] Standards of Medical Care in Diabetes 2016, [place] Diabetes Association. Diabetes Care. 2016.39(Suppl 1). Performed By: #### 2 4321-2 ####[facility] [place] [place] LABORATORYCLIA [id number] [place] [address] [place] Potassium [Moles/Vol] 3.3 mmol/L Low 3.7-5.1 [facility] Comment on above: Order Comment: Kartik caitie Type: BLOOD SPECIMENOrdering Facility: [facility] Address: [address] [place] [address] Performed By: #### 2 4321-2 ####[facility] [place] [place] LABORATORYCLIA [id number] [place] [address] [place] Sodium [Moles/Vol] 139 mmol/L Normal 136-144 [facility] Comment on above: Order Comment: Luis Danieli men Type: BLOOD SPECIMENOrdering Facility: [facility] Address: [address] [place] [phone] Performed By: #### 2 4321-2 ####[facility] [place] [place] LABORATORYCLIA [id number] [place] [address] [place] Urea nitrogen [Mass/Vol] 24 mg/dL Normal 9-24 [facility] Comment on above: Order Comment: Speci men Type: BLOOD SPECIMENOrdering Facility: [facility] Address: [address] [place] [address] Performed By: #### 2 4321-2 ####[facility] [place] [place] LABORATORYCLIA [id number] [place] [id number] [place] CASE MANAGEMon 04-13-2024 CASE MANAGEM Normal [facility] CBC W Auto Differential pane l (Bld)on 04-13-2024 Basophils (Bld) [#/Vol] 0.06 10*3/uL Normal <0.11 [facility] Comment on above: Order Comment: Speci men Type: BLOOD SPECIMENOrdering Facility: [facility] Address: [address] [place] [address] Performed By: #### 5 7021-8 ####[facility] [place] [place] LAB[facility]ATORYCLIA [id number] [address] STATES [facility] Basophils/100 WBC (Bld) 0.4 % Normal [facility] Comment on above: Order Comment: Speci men Type: BLOOD SPECIMENOrdering Facility: [facility] Address: [address] [place] [address] Performed By: #### 5 7021-8 ####[facility] [place] [place] LABORATORYCLIA [id number] [address] [place] [facility] Differential cell count method Nom (Bld) Auto Normal [facility] Comment on above: Order Comment: Speci men Type: BLOOD SPECIMENOrdering Facility: [facility] Address: [address] [place] [address] Performed By: #### 5 7021-8 ####[facility] [place] [place] LABORATORYCLIA [id number] [place] [address] [place] Eosinophils (Bld) [#/Vol] 0.42 10*3/uL Normal <0.46 [facility] Comment on above: Order Comment: Speci men Type: BLOOD SPECIMENOrdering Facility: [facility] Address: [address] [place] [address] Performed By: #### 5 7021-8 ####[facility] [place] [place] LABORATORYCLIA [id number] [place] [address] [place] Eosinophils/100 WBC (Bld) 2.7 % Normal [facility] Comment on above: Order Comment: Speci men Type: BLOOD SPECIMENOrdering Facility: [facility] Address: [address] [place] [address] Performed By: #### 5 7021-8 ####[facility] [place] [place] [facility]ORYCLIA [id number] [address] [place] Erythrocyte distribution width (RBC) [Ratio] 20.0 % High 11.5-15.0 [facility] Comment on above: Order Comment: Speci men Type: BLOOD SPECIMENOrdering Facility: [facility] Address: [address] [place] [address] Performed By: #### 5 7021-8 ####[facility] [place] [place] LABORATORYCLIA [id number] [address] [place] [facility] Hematocrit (Bld) [Volume fraction] 27.2 % Low 39.0-51.0 [facility] Comment on above: Order Comment: Speci men Type: BLOOD SPECIMENOrdering Facility: [facility] Address: [address] [place] [address] Performed By: #### 5 7021-8 ####[facility] [place] LABORATORYCLIA [id number] [address] Hemoglobin (Bld) [Mass/Vol] 8.7 g/dL Low 13.0-17.0 [facility] Comment on above: Order Comment: Speci men Type: BLOOD SPECIMENOrdering Facility: [facility] Address: [address] [place] [address] Performed By: #### 5 7021-8 ####[facility] [place] [place] LABORATORYCLIA [id number] [address] Immature granulocytes (Bld) [#/Vol] 0.55 10*3/uL High <0.10 [facility] Comment on above: Order Comment: Speci men Type: BLOOD SPECIMENOrdering Facility: [facility] Address: [address] [place] [address] Performed By: #### 5 7021-8 ####[facility]ORYCLIA [id number] [address] Immature granulocytes/100 WBC (Bld) 3.6 % Normal [facility] Comment on above: Order Comment: Speci men Type: BLOOD SPECIMENOrdering Facility: [facility] Address: [address] [place] [address] Performed By: #### 5 7021-8 ####[facility]ORYCLIA [id number] [address] [place] Lymphocytes (Bld) [#/Vol] 4.03 10*3/uL High 1.00-4.00 [facility] Comment on above: Order Comment: Speci men Type: BLOOD SPECIMENOrdering Facility: [facility] Address: [address] [place] [address] Performed By: #### 5 7021-8 ####[facility] [place] [place] LAB[facility]ATORYCLIA [id number] [address] Lymphocytes/100 WBC (Bld) 26.2 % Normal [facility] Comment on above: Order Comment: Speci men Type: BLOOD SPECIMENOrdering Facility: [facility] Address: [address] [place] [address] Performed By: #### 5 7021-8 ####[facility] LABORATORYCLIA [id number] [address] [place] MCH (RBC) [Entitic mass] 29.7 pg Normal 26.0-34.0 [facility] Comment on above: Order Comment: Speci men Type: BLOOD SPECIMENOrdering Facility: [facility] Address: [address] [place] [address] Performed By: #### 5 7021-8 ####[facility] [place] LABORATORYCLIA [id number] [address] STATES [facility] MCHC (RBC) [Mass/Vol] 32.0 g/dL Normal 30.5-36.0 [facility] Comment on above: Order Comment: Speci men Type: BLOOD SPECIMENOrdering Facility: [facility] Address: [address] [place] [address] Performed By: #### 5 7021-8 ####[facility] LABORATORYCLIA [id number] [place] [address] [place] MCV (RBC) [Entitic vol] 92.8 fL Normal 80.0-100.0 [facility] Comment on above: Order Comment: Speci men Type: BLOOD SPECIMENOrdering Facility: [facility] Address: [address] [place] [address] Performed By: #### 5 7021-8 ####[facility] [place] LABORATORYCLIA [id number] [place] [address] [place] Monocytes (Bld) [#/Vol] 1.28 10*3/uL High <0.87 [facility] Comment on above: Order Comment: Speci men Type: BLOOD SPECIMENOrdering Facility: [facility] Address: [address] [place] [address] Performed By: #### 5 7021-8 ####[facility] LABORATORYCLIA [id number] [address] [place] Monocytes/100 WBC (Bld) 8.3 % Normal [facility] Comment on above: Order Comment: Speci men Type: BLOOD SPECIMENOrdering Facility: [facility] Address: [address] [place] [address] Performed By: #### 5 7021-8 ####[facility] [place] LABORATORYCLIA [id number] [place] [address] [place] Neutrophils (Bld) [#/Vol] 9.03 10*3/uL High 1.45-7.50 [facility] Comment on above: Order Comment: Speci men Type: BLOOD SPECIMENOrdering Facility: [facility] Address: [address] [place] [address] Performed By: #### 5 7021-8 ####[facility]ORATORYCLIA [id number] [address] [place] Neutrophils/100 WBC (Bld) 58.8 % Normal [facility] Comment on above: Order Comment: Speci men Type: BLOOD SPECIMENOrdering Facility: [facility] Address: [address] [place] [address] Performed By: #### 5 7021-8 ####[facility] LABORATORYCLIA [id number] [address] [place] Nucleated RBC (Bld) [#/Vol] 3.43 10*3/uL High <0.01 [facility] Comment on above: Order Comment: Speci men Type: BLOOD SPECIMENOrdering Facility: [facility] Address: [address] [place] [address] Performed By: #### 5 7021-8 ####[facility] LAB[facility]ATORYCLIA [id number] [address] [place] Nucleated RBC/100 WBC (Bld) [Ratio] 22.3 /100 WBC Normal [facility] Comment on above: Order Comment: Speci men Type: BLOOD SPECIMENOrdering Facility: [facility] Address: [address] [place] [address] Result Comment: Revi ewed Performed By: #### 5 7021-8 ####[facility] [facility]ORATORYCLIA [id number] [address] [place] Platelet mean volume (Bld) [Entitic vol] 10.0 fL Normal 9.0-12.7 [facility] Comment on above: Order Comment: Speci men Type: BLOOD SPECIMENOrdering Facility: [facility] Address: [address] [place] [address] Performed By: #### 5 7021-8 ####[facility] LABORATORYCLIA [id number] [place] [address] [place] Platelets (Bld) [#/Vol] 280 10*3/uL Normal 150-400 [facility] Comment on above: Order Comment: Speci men Type: BLOOD SPECIMENOrdering Facility: [facility] Address: [address] [place] [address] Performed By: #### 5 7021-8 ####[facility] [facility]ATORYCLIA [id number] [address] [place] RBC (Bld) [#/Vol] 2.93 10*6/uL Low 4.20-6.00 [facility] Comment on above: Order Comment: Speci men Type: BLOOD SPECIMENOrdering Facility: [facility] Address: [address] [place] [address] Performed By: #### 5 7021-8 ####[facility] [facility]ATORYCLIA [id number] [place] [address] [place] WBC (Bld) [#/Vol] 15.37 10*3/uL High 3.70-11.00 [facility] Comment on above: Order Comment: Speci men Type: BLOOD SPECIMENOrdering Facility: [facility] Address: [address] [place] [address] Performed By: #### 5 7021-8 ####[facility] [facility]ATORYCLIA [id number] [address] [place] CNDSon 04-13-2024 CNDS Normal [facility] Hgb Bld-mCncon 04-13-2024 Hemoglobin (Bld) [Mass/Vol] 7.8 g/dL Low 13.0-17.0 [facility] Comment on above: Order Comment: Speci men Type: BLOOD SPECIMENOrdering Facility: [facility] Address: [address] [place] [address] Performed By: #### 7 18-7 ####[facility] LAB[facility]ATORYCLIA [id number] [place] [address] [place] Basic metabolic 2000 panelon 04-12-2024 Anion gap [Moles/Vol] 10 mmol/L Normal 02-11 [facility] Comment on above: Order Comment: Speci men Type: BLOOD SPECIMENOrdering Facility: [facility] Address: [address] [place] [address] Performed By: #### 2 4321-2 ####[facility] [facility]ATORYCLIA [id number] [address] [place] Calcium [Mass/Vol] 8.3 mg/dL Low 8.5-10.2 [facility] Comment on above: Order Comment: Speci men Type: BLOOD SPECIMENOrdering Facility: [facility] Address: [address] [place] [address] Performed By: #### 2 4321-2 ####[facility] LABORATORYCLIA [id number] [place] [address] [place] Chloride [Moles/Vol] 106 mmol/L Normal 98-107 [facility] Comment on above: Order Comment: Speci men Type: BLOOD SPECIMENOrdering Facility: [facility] Address: [address] [place] [address] Performed By: #### 2 4321-2 ####[facility] LABORATORYCLIA [id number] [address] [place] CO2 [Moles/Vol] 25 mmol/L Normal 22-30 [facility] Comment on above: Order Comment: Speci men Type: BLOOD SPECIMENOrdering Facility: [facility] Address: [address] [place] [address] Performed By: #### 2 4321-2 ####[facility] LABORATORYCLIA [id number] [place] [address] [place] Creatinine [Mass/Vol] 1.05 mg/dL Normal 0.73-1.22 [facility] Comment on above: Order Comment: Speci men Type: BLOOD SPECIMENOrdering Facility: [facility] Address: [address] [place] [address] Performed By: #### 2 4321-2 ####[facility] LABORATORYCLIA [id number] [address] Creatinine and Glomerular filtration rate.predicted panel (S/P/Bld) 83 mL/min/1.73m??? Normal >=60 [facility] Comment on above: Order Comment: Speci men Type: BLOOD SPECIMENOrdering Facility: [facility] Address: [address] [place] [address] Result Comment: Mariaa mated Glomerular Filtration Rate [...] actual GFR. Performed By: #### 2 4321-2 ####[facility] LABORATORYCLIA [id number] [place] [address] [place] Glucose [Mass/Vol] 106 mg/dL High 74-99 [facility] Comment on above: Order Comment: Speci men Type: BLOOD SPECIMENOrdering Facility: [facility] Address: [address] [place] [address] Result Comment: The [place] Diabetes Association (ADA) provides guidance for cutoff [...] Standards of Medical Care in Diabetes 2016, [employer]. Diabetes Care. 2016.39(Suppl 1). Performed By: #### 2 4321-2 ####[facility] [facility]ORATORYCLIA [id number] [place] [address] [place] Potassium [Moles/Vol] 3.7 mmol/L Normal 3.7-5.1 [facility] Comment on above: Order Comment: Kartik blood Type: BLOOD SPECIMENOrdering Facility: [facility] Address: [address] [place] [address] Performed By: #### 2 4321-2 ####[facility] LABORATORYCLIA [id number] [place] [id number] [place] Sodium [Moles/Vol] 141 mmol/L Normal 136-144 [facility] Comment on above: Order Comment: Luis Danieli men Type: BLOOD SPECIMENOrdering Facility: [facility] Address: [address] [place] [address] Performed By: #### 2 4321-2 ####[facility] LABORATORYCLIA [id number] [place] [address] [place] [facility] Urea nitrogen [Mass/Vol] 40 mg/dL High 03-23 [facility] Comment on above: Order Comment: Speci men Type: BLOOD SPECIMENOrdering Facility: [facility] Address: [address] [place] [address] Performed By: #### 2 4321-2 ####[facility] [facility]ORATORYCLIA [id number] [place] [address] [place] CBC W/Diff, Automatedon 03-30 PATH REV Reviewed Normal [facility] Comment on above: Result Comment: Neut rophilic leukocytosis. Normocytic anemia. Clinical correlation necessary. Barry Luciano M.D. 04/12/24 AMENDED REPORT 04/12/24 1338 PATH REV previously reported as: October Performed By: #### M 100.2200 #### [facility] [address] [place], [place], [id number] CBC panel Auto (Bld)on 04-12 Erythrocyte distribution width (RBC) [Ratio] 19.0 % High 11.5-15.0 [facility] Comment on above: Order Comment: Speci men Type: BLOOD SPECIMENOrdering Facility: [facility] Address: [address] [place] [address] Performed By: #### 5 8410-2 ####[facility] LABORATORYCLIA [id number] [place] [id number] [place] [facility] Hematocrit (Bld) [Volume fraction] 22.1 % Low 39.0-51.0 [facility] Comment on above: Order Comment: Speci men Type: BLOOD SPECIMENOrdering Facility: [facility] Address: [address] [place] [address] Performed By: #### 5 8410-2 ####[facility] LABORATORYCLIA [id number] [address] Hemoglobin (Bld) [Mass/Vol] 7.3 g/dL Low 13.0-17.0 [facility] Comment on above: Order Comment: Speci men Type: BLOOD SPECIMENOrdering Facility: [facility] Address: [address] [place] [address] Performed By: #### 5 8410-2 ####[facility] LABORATORYCLIA [id number] [address] [place] [facility] MCH (RBC) [Entitic mass] 29.3 pg Normal 26.0-34.0 [facility] Comment on above: Order Comment: Speci men Type: BLOOD SPECIMENOrdering Facility: [facility] Address: [address] [place] [address] Performed By: #### 5 8410-2 ####[facility] [facility]ORATORYCLIA [id number] [address] MCHC (RBC) [Mass/Vol] 33.0 g/dL Normal 30.5-36.0 [facility] Comment on above: Order Comment: Speci men Type: BLOOD SPECIMENOrdering Facility: [facility] Address: [address] [place] [address] Performed By: #### 5 8410-2 ####[facility] LABORATORYCLIA [id number] [address] MCV (RBC) [Entitic vol] 88.8 fL Normal 80.0-100.0 [facility] Comment on above: Order Comment: Speci men Type: BLOOD SPECIMENOrdering Facility: [facility] Address: [address] [place] [address] Performed By: #### 5 8410-2 ####[facility] LABORATORYCLIA [id number] [address] Nucleated RBC (Bld) [#/Vol] 1.97 10*3/uL High <0.01 [facility] Comment on above: Order Comment: Speci men Type: BLOOD SPECIMENOrdering Facility: [facility] Address: [address] [place] [address] Performed By: #### 5 8410-2 ####[facility] LABORATORYCLIA [id number] [address] [place] Platelet mean volume (Bld) [Entitic vol] 10.1 fL Normal 9.0-12.7 [facility] Comment on above: Order Comment: Speci men Type: BLOOD SPECIMENOrdering Facility: [facility] Address: [address] [place] [address] Performed By: #### 5 8410-2 ####[facility] [facility]ORATORYCLIA [id number] [address] [place] Platelets (Bld) [#/Vol] 249 10*3/uL Normal 150-400 [facility] Comment on above: Order Comment: Speci men Type: BLOOD SPECIMENOrdering Facility: [facility] Address: [address] [place] [address] Performed By: #### 5 8410-2 ####[facility] LABORATORYCLIA [id number] [place] [address] [place] RBC (Bld) [#/Vol] 2.49 10*6/uL Low 4.20-6.00 [facility] Comment on above: Order Comment: Speci men Type: BLOOD SPECIMENOrdering Facility: [facility] Address: [address] [place] [address] Performed By: #### 5 8410-2 ####[facility] LABORATORYCLIA [id number] [place] [address] [place] WBC (Bld) [#/Vol] 20.28 10*3/uL High 3.70-11.00 [facility] Comment on above: Order Comment: Speci men Type: BLOOD SPECIMENOrdering Facility: [facility] Address: [address] [place] [address] Performed By: #### 5 8410-2 ####[facility] [facility]ATORYCLIA [id number] [address] [place] CONSULTon 04-12-2024 CONSULT Normal [facility] Fact IX Act/Nor PPPon 2023 Coagulation factor IX activity actual/normal Coag (PPP) [Relative time] 92 % Normal 77-173 [facility] Comment on above: Order Comment: Speci men Type: BLOOD SPECIMENOrdering Facility: [facility] Address: [address] [place] [address] Performed By: #### 3 187-2 ####[facility] LABCLIA [id number] [facility]ITALDES[facility] [id number] [address] [place] Hgb Bld-mCncon 04-12-2024 Hemoglobin (Bld) [Mass/Vol] 8.2 g/dL Low 13.0-17.0 [facility] Comment on above: Order Comment: Speci men Type: BLOOD SPECIMENOrdering Facility: [facility] Address: [address] [place] [address] Performed By: #### 7 18-7 ####[facility] [place] LABORATORYCLIA [id number] [address] [place] Upper GI endoscopyon 024 Upper GI endoscopy Normal [facility] ALLIED HEALTHon 04-11-2024 ALLIED HEALTH Normal [facility] CASE MGT INIT ASSESon 2023 CASE MGT INIT ASSES Normal [facility] CBC W Auto Differential pane l (Bld)on 04-11-2024 Anisocytosis Ql (Bld) Present Normal [facility] Comment on above: Order Comment: Speci men Type: BLOOD SPECIMENOrdering Facility: [facility] Address: [address] [place] [address] Performed By: #### 5 8410-2, 85290-5 ####[facility] [place] [place] LAB[facility]ATORYCLIA [id number] [address] STATES OF [facility] Basophils (Bld) [#/Vol] 0.00 10*3/uL Normal <0.11 [facility] Comment on above: Order Comment: Speci men Type: BLOOD SPECIMENOrdering Facility: [facility] Address: [address] [place] [address] Performed By: #### 5 8410-2, 57174-1 ####[facility]ORATORYCLIA [id number] [address] [place] Basophils/100 WBC (Bld) 0.0 % Normal [facility] Comment on above: Order Comment: Speci men Type: BLOOD SPECIMENOrdering Facility: [facility] Address: [address] [place] [address] Performed By: #### 5 8410-2, 78584-3 ####[facility]ORATORYCLIA [id number] [place] [address] [place] Differential cell count method Nom (Bld) Manual Normal [facility] Comment on above: Order Comment: Speci men Type: BLOOD SPECIMENOrdering Facility: [facility] Address: [address] [place] [address] Performed By: #### 5 8410-2, 08541-1 ####[facility]ORATORYCLIA [id number] [place] [address] [place] Eosinophils (Bld) [#/Vol] 0.00 10*3/uL Normal <0.46 [facility] Comment on above: Order Comment: Speci men Type: BLOOD SPECIMENOrdering Facility: [facility] Address: [address] [place] [address] Performed By: #### 5 8410-2, 65960-4 ####[facility]ORATORYCLIA [id number] [address] [place] Eosinophils/100 WBC (Bld) 0.0 % Normal [facility] Comment on above: Order Comment: Speci men Type: BLOOD SPECIMENOrdering Facility: [facility] Address: [address] [place] [address] Performed By: #### 5 8410-2, 99015-0 ####[facility]ORATORYCLIA [id number] [place] [address] [place] bodies LM Ql (Bld) Occasional Normal [facility] Comment on above: Order Comment: Speci men Type: BLOOD SPECIMENOrdering Facility: [facility] Address: [address] [place] [address] Performed By: #### 5 8410-2, 14105-9 ####[facility]ORATORYCLIA [id number] [place] [address] [place] Lymphocytes (Bld) [#/Vol] 2.45 10*3/uL Normal 1.00-4.00 [facility] Comment on above: Order Comment: Speci men Type: BLOOD SPECIMENOrdering Facility: [facility] Address: [address] [place] [address] Performed By: #### 5 8410-2, 68655-8 ####[facility] LABORATORYCLIA [id number] [address] [place] Lymphocytes/100 WBC (Bld) 12.0 % Normal [facility] Comment on above: Order Comment: Speci men Type: BLOOD SPECIMENOrdering Facility: [facility] Address: [address] [place] [address] Performed By: #### 5 8410-2, 08522-2 ####[facility]ORATORYCLIA [id number] [place] [address] [place] Monocytes (Bld) [#/Vol] 2.65 10*3/uL High <0.87 [facility] Comment on above: Order Comment: Speci men Type: BLOOD SPECIMENOrdering Facility: [facility] Address: [address] [place] [address] Performed By: #### 5 8410-2, 37432-2 ####[facility]ORATORYCLIA [id number] [place] [address] [place] Monocytes/100 WBC (Bld) 13.0 % Normal [facility] Comment on above: Order Comment: Speci men Type: BLOOD SPECIMENOrdering Facility: [facility] Address: [address] [place] [address] Performed By: #### 5 8410-2, 81784-8 ####[facility]ORATORYCLIA [id number] [place] [address] [place] Neutrophils (Bld) [#/Vol] 15.31 10*3/uL High 1.45-7.50 [facility] Comment on above: Order Comment: Speci men Type: BLOOD SPECIMENOrdering Facility: [facility] Address: [address] [place] [address] Performed By: #### 5 8410-2, 88883-1 ####[facility]ORATORYCLIA [id number] [place] [address] [place] Neutrophils/100 WBC (Bld) 75.0 % Normal [facility] Comment on above: Order Comment: Speci men Type: BLOOD SPECIMENOrdering Facility: [facility] Address: [address] [place] [address] Performed By: #### 5 8410-2, 71648-3 ####[facility] [place] [place] [facility]ATORYCLIA [id number] [place] [address] [place] Nucleated RBC (Bld) [#/Vol] 10*3/uL Normal <0.01 [facility] Comment on above: Order Comment: Speci men Type: BLOOD SPECIMENOrdering Facility: [facility] Address: [address] [place] [address] Performed By: #### 5 8410-2, 94948-1 ####[facility] [place] [place] [facility]ATORYCLIA [id number] [place] [address] [place] Nucleated RBC/100 WBC (Bld) [Ratio] 0.0 /100 WBC Normal [facility] Comment on above: Order Comment: Speci men Type: BLOOD SPECIMENOrdering Facility: [facility] Address: [address] [place] [address] Performed By: #### 5 8410-2, 02780-2 ####[facility] [place] [place] [facility]ATORYCLIA [id number] [place] [address] [place] Platelets Estimate (Bld) [#/Vol] Adequate Normal [facility] Comment on above: Order Comment: Speci men Type: BLOOD SPECIMENOrdering Facility: [facility] Address: [address] [place] [address] Performed By: #### 5 8410-2, 11318-9 ####[facility]ORATORYCLIA [id number] [address] [place] Polychromasia LM Ql (Bld) Slight Normal [facility] Comment on above: Order Comment: Speci men Type: BLOOD SPECIMENOrdering Facility: [facility] Address: [address] [place] [address] Performed By: #### 5 8410-2, 65139-0 ####[facility]ORATORYCLIA [id number] [address] [place] RED CELL MORPH Reviewed: see result s of individual morphologies Normal [facility] Comment on above: Order Comment: Speci men Type: BLOOD SPECIMENOrdering Facility: [facility] Address: [address] [place] [address] Performed By: #### 5 8410-2, 28895-7 ####[facility]ORATORYCLIA [id number] [address] [place] Target cells LM Ql (Bld) Few Normal [facility] Comment on above: Order Comment: Speci men Type: BLOOD SPECIMENOrdering Facility: [facility] Address: [address] [place] [address] Performed By: #### 5 8410-2, 27204-6 ####[facility]ORATORYCLIA [id number] [address] Anisocytosis Ql (Bld) Present Normal [facility] Comment on above: Order Comment: Speci men Type: BLOOD SPECIMENOrdering Facility: [facility] Address: [address] [place] [address] Performed By: #### 5 7021-8 ####[facility]ORATORYCLIA [id number] [address] [place] Basophils (Bld) [#/Vol] 0.00 10*3/uL Normal <0.11 [facility] Comment on above: Order Comment: Speci men Type: BLOOD SPECIMENOrdering Facility: [facility] Address: [address] [place] [address] Performed By: #### 5 7021-8 ####[facility]ORATORYCLIA [id number] [address] [place] Basophils/100 WBC (Bld) 0.0 % Normal [facility] Comment on above: Order Comment: Speci men Type: BLOOD SPECIMENOrdering Facility: [facility] Address: [address] [place] [address] Performed By: #### 5 7021-8 ####[facility]ORATORYCLIA [id number] [address] [place] Differential cell count method Nom (Bld) Manual Normal [facility] Comment on above: Order Comment: Speci men Type: BLOOD SPECIMENOrdering Facility: [facility] Address: [address] [place] [address] Performed By: #### 5 7021-8 ####[facility]ATORYCLIA [id number] [address] [place] Eosinophils (Bld) [#/Vol] 0.00 10*3/uL Normal <0.46 [facility] Comment on above: Order Comment: Speci men Type: BLOOD SPECIMENOrdering Facility: [facility] Address: [address] [place] [address] Performed By: #### 5 7021-8 ####[facility] LABORATORYCLIA [id number] [address] Eosinophils/100 WBC (Bld) 0.0 % Normal [facility] Comment on above: Order Comment: Speci men Type: BLOOD SPECIMENOrdering Facility: [facility] Address: [address] [place] [address] Performed By: #### 5 7021-8 ####[facility] LABORATORYCLIA [id number] [address] [place] Erythrocyte distribution width (RBC) [Ratio] 19.3 % High 11.5-15.0 [facility] Comment on above: Order Comment: Speci men Type: BLOOD SPECIMENOrdering Facility: [facility] Address: [address] [place] [address] Performed By: #### 5 7021-8 ####[facility] LABORATORYCLIA [id number] [address] [place] Hematocrit (Bld) [Volume fraction] 24.9 % Low 39.0-51.0 [facility] Comment on above: Order Comment: Speci men Type: BLOOD SPECIMENOrdering Facility: [facility] Address: [address] [place] [address] Performed By: #### 5 7021-8 ####[facility] [place] LABORATORYCLIA [id number] [place] [address] [place] Hemoglobin (Bld) [Mass/Vol] 8.1 g/dL Low 13.0-17.0 [facility] Comment on above: Order Comment: Speci men Type: BLOOD SPECIMENOrdering Facility: [facility] Address: [address] [place] [address] Performed By: #### 5 7021-8 ####[facility] [place] [facility]ORATORYCLIA [id number] [place] [address] [place] bodies LM Ql (Bld) Occasional Normal [facility] Comment on above: Order Comment: Speci men Type: BLOOD SPECIMENOrdering Facility: [facility] Address: [address] [place] [address] Performed By: #### 5 7021-8 ####[facility] [place] [facility]ORATORYCLIA [id number] [place] [address] [place] Lymphocytes (Bld) [#/Vol] 1.41 10*3/uL Normal 1.00-4.00 [facility] Comment on above: Order Comment: Speci men Type: BLOOD SPECIMENOrdering Facility: [facility] Address: [address] [place] [address] Performed By: #### 5 7021-8 ####[facility] [place] [place] [facility]ATORYCLIA [id number] [address] [place] Lymphocytes/100 WBC (Bld) 7.0 % Normal [facility] Comment on above: Order Comment: Speci men Type: BLOOD SPECIMENOrdering Facility: [facility] Address: [address] [place] [address] Performed By: #### 5 7021-8 ####[facility] [place] [facility]ATORYCLIA [id number] [address] MCH (RBC) [Entitic mass] 29.6 pg Normal 26.0-34.0 [facility] Comment on above: Order Comment: Speci men Type: BLOOD SPECIMENOrdering Facility: [facility] Address: [address] [place] [address] Performed By: #### 5 7021-8 ####[facility] [place] [facility]ATORYCLIA [id number] [address] MCHC (RBC) [Mass/Vol] 32.5 g/dL Normal 30.5-36.0 [facility] Comment on above: Order Comment: Speci men Type: BLOOD SPECIMENOrdering Facility: [facility] Address: [address] [place] [address] Performed By: #### 5 7021-8 ####[facility] [facility]ATORYCLIA [id number] [address] MCV (RBC) [Entitic vol] 90.9 fL Normal 80.0-100.0 [facility] Comment on above: Order Comment: Speci men Type: BLOOD SPECIMENOrdering Facility: [facility] Address: [address] [place] [address] Performed By: #### 5 7021-8 ####[facility] [place] [facility]ATORYCLIA [id number] [address] Monocytes (Bld) [#/Vol] 1.21 10*3/uL High <0.87 [facility] Comment on above: Order Comment: Speci men Type: BLOOD SPECIMENOrdering Facility: [facility] Address: [address] [place] [address] Performed By: #### 5 7021-8 ####[facility] [place] LABORATORYCLIA [id number] [place] [address] [place] Monocytes/100 WBC (Bld) 6.0 % Normal [facility] Comment on above: Order Comment: Speci men Type: BLOOD SPECIMENOrdering Facility: [facility] Address: [address] [place] [address] Performed By: #### 5 7021-8 ####[facility]ORATORYCLIA [id number] [place] [address] [place] Neutrophils (Bld) [#/Vol] 17.57 10*3/uL High 1.45-7.50 [facility] Comment on above: Order Comment: Speci men Type: BLOOD SPECIMENOrdering Facility: [facility] Address: [address] [place] [address] Performed By: #### 5 7021-8 ####[facility] [place] LAB[facility]ATORYCLIA [id number] [address] [place] Neutrophils/100 WBC (Bld) 87.0 % Normal [facility] Comment on above: Order Comment: Speci men Type: BLOOD SPECIMENOrdering Facility: [facility] Address: [address] [place] [address] Performed By: #### 5 7021-8 ####[facility]ORATORYCLIA [id number] [place] [address] [place] Nucleated RBC (Bld) [#/Vol] 0.81 10*3/uL High <0.01 [facility] Comment on above: Order Comment: Speci men Type: BLOOD SPECIMENOrdering Facility: [facility] Address: [address] [place] [address] Performed By: #### 5 7021-8 ####[facility] [facility] LABORATORYCLIA [id number] [place] [address] [place] Nucleated RBC/100 WBC (Bld) [Ratio] 4.0 /100 WBC Normal [facility] Comment on above: Order Comment: Speci men Type: BLOOD SPECIMENOrdering Facility: [facility] Address: [address] [place] [address] Performed By: #### 5 7021-8 ####[facility] [facility]ORATORYCLIA [id number] [address] [place] Platelet mean volume (Bld) [Entitic vol] 10.6 fL Normal 9.0-12.7 [facility] Comment on above: Order Comment: Speci men Type: BLOOD SPECIMENOrdering Facility: [facility] Address: [address] [place] [address] Performed By: #### 5 7021-8 ####[facility] [place] [place] [facility]ATORYCLIA [id number] [address] [place] Platelets (Bld) [#/Vol] 339 10*3/uL Normal 150-400 [facility] Comment on above: Order Comment: Speci men Type: BLOOD SPECIMENOrdering Facility: [facility] Address: [address] [place] [address] Performed By: #### 5 7021-8 ####[facility] [place] [facility]ATORYCLIA [id number] [address] [place] Platelets Estimate (Bld) [#/Vol] Adequate Normal [facility] Comment on above: Order Comment: Speci men Type: BLOOD SPECIMENOrdering Facility: [facility] Address: [address] [place] [address] Performed By: #### 5 7021-8 ####[facility] [facility]ATORYCLIA [id number] [address] [place] Polychromasia LM Ql (Bld) Slight Normal [facility] Comment on above: Order Comment: Speci men Type: BLOOD SPECIMENOrdering Facility: [facility] Address: [address] [place] [address] Performed By: #### 5 7021-8 ####[facility] [facility]ATORYCLIA [id number] [address] [place] RBC (Bld) [#/Vol] 2.74 10*6/uL Low 4.20-6.00 [facility] Comment on above: Order Comment: Speci men Type: BLOOD SPECIMENOrdering Facility: [facility] Address: [address] [place] [address] Performed By: #### 5 7021-8 ####[facility] [facility]ORATORYCLIA [id number] [address] RED CELL MORPH Reviewed: see result s of individual morphologies Normal [facility] Comment on above: Order Comment: Speci men Type: BLOOD SPECIMENOrdering Facility: [facility] Address: [address] [place] [address] Performed By: #### 5 7021-8 ####[facility] [facility]ORATORYCLIA [id number] [address] Target cells LM Ql (Bld) Few Normal [facility] Comment on above: Order Comment: Speci men Type: BLOOD SPECIMENOrdering Facility: [facility] Address: [address] [place] [address] Performed By: #### 5 7021-8 ####[facility] [facility]ORATORYCLIA [id number] [address] OF [facility] WBC (Bld) [#/Vol] 20.20 10*3/uL High 3.70-11.00 [facility] Comment on above: Order Comment: Speci men Type: BLOOD SPECIMENOrdering Facility: [facility] Address: [address] [place] [address] Performed By: #### 5 7021-8 ####[facility] LABORATORYCLIA [id number] [address] CBC panel Auto (Bld)on 04-11 Erythrocyte distribution width (RBC) [Ratio] 18.3 % High 11.5-15.0 [facility] Comment on above: Order Comment: Speci men Type: BLOOD SPECIMENOrdering Facility: [facility] Address: [address] [place] [address] Performed By: #### 5 8410-2 ####[facility] LABORATORYCLIA [id number] [address] Hematocrit (Bld) [Volume fraction] 27.9 % Low 39.0-51.0 [facility] Comment on above: Order Comment: Speci men Type: BLOOD SPECIMENOrdering Facility: [facility] Address: [address] [place] [address] Performed By: #### 5 8410-2 ####[facility] [facility]ORATORYCLIA [id number] [address] Hemoglobin (Bld) [Mass/Vol] 9.5 g/dL Low 13.0-17.0 [facility] Comment on above: Order Comment: Speci men Type: BLOOD SPECIMENOrdering Facility: [facility] Address: [address] [place] [address] Performed By: #### 5 8410-2 ####[facility] LABORATORYCLIA [id number] [address] STATES [facility] MCH (RBC) [Entitic mass] 29.1 pg Normal 26.0-34.0 [facility] Comment on above: Order Comment: Speci men Type: BLOOD SPECIMENOrdering Facility: [facility] Address: [address] [place] [address] Performed By: #### 5 8410-2 ####[facility] [facility]ORATORYCLIA [id number] [address] [place] [facility] MCHC (RBC) [Mass/Vol] 34.1 g/dL Normal 30.5-36.0 [facility] Comment on above: Order Comment: Speci men Type: BLOOD SPECIMENOrdering Facility: [facility] Address: [address] [place] [address] Performed By: #### 5 8410-2 ####[facility] [place] [facility]ATORYCLIA [id number] [address] [place] MCV (RBC) [Entitic vol] 85.6 fL Normal 80.0-100.0 [facility] Comment on above: Order Comment: Speci men Type: BLOOD SPECIMENOrdering Facility: [facility] Address: [address] [place] [address] Performed By: #### 5 8410-2 ####[facility] [place] [place] [facility]ORATORYCLIA [id number] [place] [address] [place] Nucleated RBC (Bld) [#/Vol] 1.27 10*3/uL High <0.01 [facility] Comment on above: Order Comment: Speci men Type: BLOOD SPECIMENOrdering Facility: [facility] Address: [address] [place] [address] Performed By: #### 5 8410-2 ####[facility] [place] [facility]ATORYCLIA [id number] [place] [address] [place] Platelet mean volume (Bld) [Entitic vol] 11.5 fL Normal 9.0-12.7 [facility] Comment on above: Order Comment: Speci men Type: BLOOD SPECIMENOrdering Facility: [facility] Address: [address] [place] [address] Performed By: #### 5 8410-2 ####[facility] [facility]ATORYCLIA [id number] [place] [address] [place] Platelets (Bld) [#/Vol] 117 10*3/uL Low 150-400 [facility] Comment on above: Order Comment: Speci men Type: BLOOD SPECIMENOrdering Facility: [facility] Address: [address] [place] [address] Result Comment: No c lot detected.Platelet count confirmed by manual review of peripheral blood smear. Performed By: #### 5 8410-2 ####[facility] [place] [facility]ATORYCLIA [id number] [place] [address] [place] RBC (Bld) [#/Vol] 3.26 10*6/uL Low 4.20-6.00 [facility] Comment on above: Order Comment: Speci men Type: BLOOD SPECIMENOrdering Facility: [facility] Address: [address] [place] [address] Performed By: #### 5 8410-2 ####[facility] [place] [facility]ATORYCLIA [id number] [place] [address] [place] WBC (Bld) [#/Vol] 24.26 10*3/uL High 3.70-11.00 [facility] Comment on above: Order Comment: Speci men Type: BLOOD SPECIMENOrdering Facility: [facility] Address: [address] [place] [address] Performed By: #### 5 8410-2 ####[facility] [facility]ORATORYCLIA [id number] [address] [place] [facility] Erythrocyte distribution width (RBC) [Ratio] 19.3 % High 11.5-15.0 [facility] Comment on above: Order Comment: Speci men Type: BLOOD SPECIMENOrdering Facility: [facility] Address: [address] [place] [address] Performed By: #### 5 8410-2, 36695-6 ####[facility] [place] [facility]ATORYCLIA [id number] [address] [place] Hematocrit (Bld) [Volume fraction] 22.9 % Low 39.0-51.0 [facility] Comment on above: Order Comment: Speci men Type: BLOOD SPECIMENOrdering Facility: [facility] Address: [address] [place] [address] Performed By: #### 5 8410-2, 01585-9 ####[facility] [facility]ATORYCLIA [id number] [address] [place] Hemoglobin (Bld) [Mass/Vol] 7.2 g/dL Low 13.0-17.0 [facility] Comment on above: Order Comment: Speci men Type: BLOOD SPECIMENOrdering Facility: [facility] Address: [address] [place] [address] Performed By: #### 5 8410-2, 16785-0 ####[facility] [place] [facility]ATORYCLIA [id number] [address] [place] MCH (RBC) [Entitic mass] 28.9 pg Normal 26.0-34.0 [facility] Comment on above: Order Comment: Speci men Type: BLOOD SPECIMENOrdering Facility: [facility] Address: [address] [place] [address] Performed By: #### 5 8410-2, 36386-8 ####[facility] [place] [facility]ATORYCLIA [id number] [address] STATES OF [facility] MCHC (RBC) [Mass/Vol] 31.4 g/dL Normal 30.5-36.0 [facility] Comment on above: Order Comment: Speci men Type: BLOOD SPECIMENOrdering Facility: [facility] Address: [address] [place] [address] Performed By: #### 5 8410-2, 76245-3 ####[facility] [place] LABORATORYCLIA [id number] [address] OF [facility] MCV (RBC) [Entitic vol] 92.0 fL Normal 80.0-100.0 [facility] Comment on above: Order Comment: Speci men Type: BLOOD SPECIMENOrdering Facility: [facility] Address: [address] [place] [address] Performed By: #### 5 8410-2, 63441-7 ####[facility] [place] [place] [facility]ORATORYCLIA [id number] [address] [place] [facility] Platelet mean volume (Bld) [Entitic vol] 10.7 fL Normal 9.0-12.7 [facility] Comment on above: Order Comment: Speci men Type: BLOOD SPECIMENOrdering Facility: [facility] Address: [address] [place] [address] Performed By: #### 5 8410-2, 16867-1 ####[facility] [place] LABORATORYCLIA [id number] [address] [place] Platelets (Bld) [#/Vol] 295 10*3/uL Normal 150-400 [facility] Comment on above: Order Comment: Speci men Type: BLOOD SPECIMENOrdering Facility: [facility] Address: [address] [place] [address] Performed By: #### 5 8410-2, 32502-7 ####[facility] [place] [place] LABORATORYCLIA [id number] [address] [place] RBC (Bld) [#/Vol] 2.49 10*6/uL Low 4.20-6.00 [facility] Comment on above: Order Comment: Speci men Type: BLOOD SPECIMENOrdering Facility: [facility] Address: [address] [place] [address] Performed By: #### 5 8410-2, 48499-7 ####[facility] [place] [place] [facility]ATORYCLIA [id number] [place] [address] [place] WBC (Bld) [#/Vol] 20.41 10*3/uL High 3.70-11.00 [facility] Comment on above: Order Comment: Speci men Type: BLOOD SPECIMENOrdering Facility: [facility] Address: [address] [place] [address] Performed By: #### 5 8410-2, 04028-8 ####[facility] [place] [place] [facility]ATORYCLIA [id number] [address] [place] CONSULTon 04-11-2024 CONSULT Normal [facility] CONSULT Normal [facility] CONSULT Normal [facility] CTA ABD/PELV W IVCONon 04-11 CTA ABD/PELV W IVCON Normal [facility] Comprehensive metabolic 2000 panelon 04-11-2024 Albumin [Mass/Vol] 3.0 g/dL Low 3.9-4.9 [facility] Comment on above: Order Comment: Speci men Type: BLOOD SPECIMENOrdering Facility: [facility] Address: [address] [place] [address] Performed By: #### 2 4323-8 ####[facility] [place] [place] [facility]ATORYCLIA [id number] [place] [address] [place] ALP [Catalytic activity/Vol] 69 U/L Normal 38-113 [facility] Comment on above: Order Comment: Speci men Type: BLOOD SPECIMENOrdering Facility: [facility] Address: [address] [place] [address] Performed By: #### 2 4323-8 ####[facility] [place] [place] LABORATORYCLIA [id number] [place] [address] [place] ALT With P-5'-P [Catalytic activity/Vol] 27 U/L Normal 10-54 [facility] Comment on above: Order Comment: Speci men Type: BLOOD SPECIMENOrdering Facility: [facility] Address: [address] [place] [address] Performed By: #### 2 4323-8 ####[facility]ORATORYCLIA [id number] [place] [address] [place] Anion gap [Moles/Vol] 17 mmol/L High 8-15 [facility] Comment on above: Order Comment: Speci men Type: BLOOD SPECIMENOrdering Facility: [facility] Address: [address] [place] [address] Performed By: #### 2 4323-8 ####[facility]ATORYCLIA [id number] [address] [place] AST With P-5'-P [Catalytic activity/Vol] 40 U/L Normal 14-40 [facility] Comment on above: Order Comment: Speci men Type: BLOOD SPECIMENOrdering Facility: [facility] Address: [address] [place] [address] Performed By: #### 2 4323-8 ####[facility] [place] [place] LABORATORYCLIA [id number] [place] [address] [place] Bilirubin [Mass/Vol] 1.3 mg/dL Normal 0.2-1.3 [facility] Comment on above: Order Comment: Speci men Type: BLOOD SPECIMENOrdering Facility: [facility] Address: [address] [place] [address] Performed By: #### 2 4323-8 ####[facility]ORATORYCLIA [id number] [place] [address] [place] Calcium [Mass/Vol] 7.9 mg/dL Low 8.5-10.2 [facility] Comment on above: Order Comment: Speci men Type: BLOOD SPECIMENOrdering Facility: [facility] Address: [address] [place] [address] Performed By: #### 2 4323-8 ####[facility]ORATORYCLIA [id number] [place] [address] [place] Chloride [Moles/Vol] 100 mmol/L Normal 98-107 [facility] Comment on above: Order Comment: Speci men Type: BLOOD SPECIMENOrdering Facility: [facility] Address: [address] [place] [address] Performed By: #### 2 4323-8 ####[facility] [place] [place] [facility]ATORYCLIA [id number] [place] [id number] [place] CO2 [Moles/Vol] 19 mmol/L Low 22-30 [facility] Comment on above: Order Comment: Speci men Type: BLOOD SPECIMENOrdering Facility: [facility] Address: [address] [place] [address] Performed By: #### 2 4323-8 ####[facility]ITALCLIA [id number] [address] Creatinine [Mass/Vol] 1.48 mg/dL High 0.73-1.22 [facility] Comment on above: Order Comment: Speci men Type: BLOOD SPECIMENOrdering Facility: [facility] Address: [address] [place] [address] Performed By: #### 2 4323-8 ####[facility] [place] [place] [facility]ATORYCLIA [id number] [address] Creatinine and Glomerular filtration rate.predicted panel (S/P/Bld) 55 mL/min/1.73m??? Low >=60 [facility] Comment on above: Order Comment: Speci men Type: BLOOD SPECIMENOrdering Facility: [facility] Address: [address] [place] [address] Result Comment: Mariaa mated Glomerular Filtration Rate [...] actual GFR. Performed By: #### 2 4323-8 ####[facility] [place] [place] [facility]ATORYCLIA [id number] [place] [address] [place] Glucose [Mass/Vol] 206 mg/dL High 74-99 [facility] Comment on above: Order Comment: Speci men Type: BLOOD SPECIMENOrdering Facility: [facility] Address: [address] [place] [address] Result Comment: The [employer] Diabetes [employer] (ADA) provides guidance for cutoff [...] Standards of Medical Care in Diabetes 2016, [employer]. Diabetes Care. 2016.39(Suppl 1). Performed By: #### 2 4323-8 ####[facility] [place] [place] [facility]ATORYCLIA [id number] [place] [address] [place] Potassium [Moles/Vol] 4.7 mmol/L Normal 3.7-5.1 [facility] Comment on above: Order Comment: Kartik men Type: BLOOD SPECIMENOrdering Facility: [facility] Address: [address] [place] [address] Performed By: #### 2 4323-8 ####[facility] [place] [place] [facility]ORYCLIA [id number] [place] [address] [place] Protein [Mass/Vol] 5.3 g/dL Low 6.3-8.0 [facility] Comment on above: Order Comment: Speci men Type: BLOOD SPECIMENOrdering Facility: [facility] Address: [address] [place] [address] Performed By: #### 2 4323-8 ####[facility] [place] [place] [facility]ORYCLIA [id number] [place] [address] [place] Sodium [Moles/Vol] 136 mmol/L Normal 136-144 [facility] Comment on above: Order Comment: Speci men Type: BLOOD SPECIMENOrdering Facility: [facility] Address: [address] [place] [address] Performed By: #### 2 4323-8 ####[facility] [place] [place] [facility]ATORYCLIA [id number] [place] [id number] [facility] Urea nitrogen [Mass/Vol] 53 mg/dL High 9-24 [facility] Comment on above: Order Comment: Speci men Type: BLOOD SPECIMENOrdering Facility: [facility] Address: [address] [place] [address] Performed By: #### 2 4323-8 ####[facility] [place] [place] [facility]ORYCLIA [id number] [place] [id number] [facility] ED NOTEon 04-11-2024 ED NOTE HNO ID: [id number] Author: NIDA MCDONNELL RN Service: Emergency Medicine Author Type: Registered Nurse Type: ED Notes Filed: 04/11/2024 18:05 Note Text: Waiting on factor IX to come from main pharmacy [facility] ED NOTE HNO ID: [id number] Author: NIDA MCDONNELL RN Service: Emergency Medicine Author Type: Registered Nurse Type: ED Notes Filed: 04/11/2024 12:49 Note Text: ICU team at bedside [facility] ED NOTE HNO ID: [id number] Author: DARYA FAIRBANKS RN Service: ? Author Type: Registered Nurse Type: ED Notes Filed: 04/11/2024 09:24 Note Text: Ct called [facility] ED NOTE HNO ID: [id number] Author: AMANDA RAMIREZ RN Service: ? Author Type: Registered Nurse Type: ED Notes Filed: 04/11/2024 07:01 Note Text: Report given to Evon PEREZ and Darya PEREZ [facility] ED NOTE HNO ID: [id number] Author: AMANDA RAMIREZ RN Service: ? Author Type: Registered Nurse Type: ED Notes Filed: 04/11/2024 06:14 Note Text: Resuming patient care at this time [facility] ED NOTE HNO ID: [id number] Author: ASHLEY, KONSTANCE, RN Service: ? Author Type: Registered Nurse Type: ED Notes Filed: 04/11/2024 04:08 Note Text: Called away from patient care d/t trauma activation Normal [facility] ED NOTE HNO ID: [id number] Author: AMOL BURCH RN Service: Emergency Medicine Author Type: Registered Nurse Type: ED Notes Filed: 04/11/2024 03:38 Note Text: CT called Normal [facility] ED NOTE HNO ID: [id number] Author: ANU STALEY, FRANKIE Service: Emergency Medicine Author Type: Registered Nurse Type: ED Notes Filed: 04/11/2024 02:53 Note Text: This Normal [facility] ED NOTE Normal [facility] ED NOTE Normal [facility] ED NOTE Normal [facility] ED PROV NOTEon 04-11-2024 ED PROV NOTE Normal [facility] Fact IX Act/Nor PPPon 2023 Coagulation factor IX activity actual/normal Coag (PPP) [Relative time] 58 % Low 77-173 [facility] Comment on above: Order Comment: Speci men Type: BLOOD SPECIMENOrdering Facility: [facility] Address: [address] [place] [address] Performed By: #### 3 187-2 ####[facility] LAB[facility] [id number] [place] [address] [place] Hgb Bld-mCncon 04-11-2024 Hemoglobin (Bld) [Mass/Vol] 7.4 g/dL Low 13.0-17.0 [facility] Comment on above: Order Comment: Speci men Type: BLOOD SPECIMENOrdering Facility: [facility] Address: [address] [place] [address] Performed By: #### 7 18-7 ####[facility] [place] [facility]ATORYCLIA [id number] [place] [address] [place] Hemoglobin (Bld) [Mass/Vol] 7.5 g/dL Low 13.0-17.0 [facility] Comment on above: Order Comment: Speci men Type: BLOOD SPECIMENOrdering Facility: [facility] Address: [address] [place] [address] Performed By: #### 7 18-7 ####[facility]ORYCLIA [id number] [place] TOXICOLOGY SCREEN, ROUTINE U RINEon 04-11-2024 Amphetamines Confirm (U) [Mass/Vol] Negative Normal Negative [facility] Comment on above: Order Comment: Speci men Type: URINE SPECIMENOrdering Facility: [facility] Address: [address] [place] [address] Result Comment: Cuto ff threshold at 1000 ng/mL. Performed By: #### U TOX2 ####[facility]ATORYCLIA [id number] [address] [place] BARBITURATES, URINE Negative Normal Negative [facility] Comment on above: Order Comment: Speci men Type: URINE SPECIMENOrdering Facility: [facility] Address: [address] [place] [address] Result Comment: Cuto ff threshold at 200 ng/mL. Performed By: #### U TOX2 ####[facility]ORYCLIA [id number] [place] [address] [place] BENZODIAZEPINES, UR Positive Abnormal Negative [facility] Comment on above: Order Comment: Speci men Type: URINE SPECIMENOrdering Facility: [facility] Address: [address] [place] [address] Result Comment: Cuto ff threshold at 200 ng/mL. Performed By: #### U TOX2 ####[facility]ATORYCLIA [id number] [place] [address] [place] Cannabinoids Screen Ql (U) Negative Normal Negative [facility] Comment on above: Order Comment: Speci men Type: URINE SPECIMENOrdering Facility: [facility] Address: [address] [place] [address] Result Comment: Cuto ff threshold at 50 ng/mL. Performed By: #### U TOX2 ####[facility]ATORYCLIA [id number] [place] [address] [place] Cocaine Ql (U) Negative Normal Negative [facility] Comment on above: Order Comment: Speci men Type: URINE SPECIMENOrdering Facility: [facility] Address: [address] [place] [address] Result Comment: Cuto ff threshold at 300 ng/mL. Performed By: #### U TOX2 ####[facility]ORYCLIA [id number] [address] [place] Ethanol (U) [Mass/Vol] <11 Normal <11 [facility] Comment on above: Order Comment: Speci men Type: URINE SPECIMENOrdering Facility: [facility] Address: [address] [place] [address] Performed By: #### U TOX2 ####[facility]ORYCLIA [id number] [address] [place] Opiates Screen Ql (U) Negative Normal Negative [facility] Comment on above: Order Comment: Speci men Type: URINE SPECIMENOrdering Facility: [facility] Address: [address] [place] [address] Result Comment: Cuto ff threshold at 300 ng/mL. Performed By: #### U TOX2 ####[facility] [place] [place] [facility]ATORYCLIA [id number] [address] [place] oxyCODONE cutoff Screen (U) [Mass/Vol] Negative Normal Negative [facility] Comment on above: Order Comment: Speci men Type: URINE SPECIMENOrdering Facility: [facility] Address: [address] [place] [address] Result Comment: Cuto ff threshold at 100 ng/mL. Performed By: #### U TOX2 ####[facility]ATORYCLIA [id number] [address] [place] Phencyclidine Ql (U) Negative Normal Negative [facility] Comment on above: Order Comment: Speci men Type: URINE SPECIMENOrdering Facility: [facility] Address: [address] [place] [address] Result Comment: Cuto ff threshold at 25 ng/mL. Performed By: #### U TOX2 ####[facility]ATORYCLIA [id number] [address] [place] TYPE + SCREENon 04-11-2024 ABO A Normal [facility] Comment on above: Order Comment: Speci men Type: BLOOD SPECIMENOrdering Facility: [facility] Address: [address] [place] [address] Performed By: #### T SCR ####[facility] [place] BLOOD BANKCLIA [id number] [place] [address] [facility] Rh Nom (Bld) Positive Normal [facility] Comment on above: Order Comment: Speci men Type: BLOOD SPECIMENOrdering Facility: [facility] Address: [address] [place] [address] Performed By: #### T SCR ####[facility] [place] BLO[facility] BANKCLIA [id number] [place] [id number] [facility] TYPE AND SCREEN EXPIRATION 04/14/2024 23:59 Normal [facility] Comment on above: Order Comment: Speci men Type: BLOOD SPECIMENOrdering Facility: [facility] Address: [address] [place] [address] Performed By: #### T SCR ####[facility] [place] BLOOD BANKCLIA [id number] [place] [id number] [facility] Urine Cultureon 04-11-2024 URC Culture exhibits no growth. Normal [facility] Comment on above: Performed By: #### M 100.2200 #### [facility] [address] [facility] [address] Basic Metabolic Profile (BMP )on 04-10-2024 BUN/CRE 31.8 RATIO High 10- [facility] Comment on above: Performed By: #### M 100.2200 #### [facility] [address] [facility] [facility] [address] [place],Total 8.5 mg/dL Normal 8.5-10.1 [facility] Comment on above: Performed By: #### M 100.2200 #### [facility] [address] [place], [address] Chloride [Moles/Vol] 104 mmol/L Normal 98-107 [facility] Comment on above: Performed By: #### M 100.2200 #### [facility] [address] [place], [address] CO2 [Moles/Vol] 24.0 mmol/L Normal 21.0-32.0 [facility] Comment on above: Performed By: #### M 100.2200 #### [facility] [address] [place], [address] Creatinine [Mass/Vol] 1.29 mg/dL Normal 0.70-1.30 [facility] Comment on above: Result Comment: The validity of the calculated GFR GFRAA in patients over 70 years has not been determined. Clinical correlation is essential. Performed By: #### M 100.2200 #### [facility] [address] [place], [address] ECRCL 76.93 ml/min Normal [facility] Comment on above: Performed By: #### M 100.2200 #### [facility] [address] [place], [address] EST GFR - AA 74 mL/min Normal >60 [facility] Comment on above: Result Comment: Afri can Irish GFR Calc Performed By: #### M 100.2200 #### [facility] [address] [place], [address] GAP 8 Normal 5-15 [facility] Comment on above: Performed By: #### M 100.2200 #### [facility] [address] [place], [address] GFR/1.73 sq M.predicted among non-blacks MDRD (S/P/Bld) [Vol rate/Area] 61 mL/min/{1.73_m2} Normal >60 [facility] Comment on above: Result Comment: Non- GFR Calc Performed By: #### M 100.2200 #### [facility] [address] [place], [address] Glucose [Mass/Vol] 190 mg/dL High 74-106 [facility] Comment on above: Result Comment: Fast ing Glucose result greater than or equal to 126 mg/dL suggests DIABETES MELLITUS per A.D.A. criteria. Performed By: #### M 100.2200 #### [facility] [address] [place], [address] Potassium [Moles/Vol] 4.0 mmol/L Normal 3.5-5.1 [facility] Comment on above: Performed By: #### M 100.2200 #### [facility] [address] [place], [address] Sodium [Moles/Vol] 136 mmol/L Normal 136-145 [facility] Comment on above: Performed By: #### M 100.2200 #### [facility] [address] [place], [address] Urea nitrogen [Mass/Vol] 41 mg/dL High 7-18 [facility] Comment on above: Performed By: #### M 100.2200 #### [facility] [address] [place], [address] Brain/Head without Contrasto n 04-10-2024 Brain/Head without Contrast [facility] Imaging Services [address] [place] [address] Brain/Head without Contrast MR#: [id number] Acct: [id number] Name: SARAHISIDRO ALPESH Rep #: [id number] : 1965 M 58 From: Ch[place] Roland MD PCP: Care Physician,No Primary Status: REG ER Study: Brain/Head without Contrast Date of Exam: 03/30 08/23 Exam# [id number] Ordering Dr: Clement Meeks DO -[id number] STUDY: CT BRAIN WITHOUT CONTRAST REASON FOR [...] Clement Meeks DO; No Primary Care Physician Document Management Technician: Signed Normal [facility] CONSULTon 04-10-2024 CONSULT Normal [facility] CT Chest, Abd, Pelvis WO Con ton 04-10-2024 CT Chest, Abd, Pelvis WO Cont [facility] Imaging Services [address], [place] [id number] CT Chest, Abd, Pelvis WO Cont MR#: [id number] Acct: [id number] Name: ISIDRO SMITH Rep #: [id number] : 1965 M 58 From: Chico Roland MD PCP: Care Physician,No Primary Status: REG ER Study: CT Chest, Abd, Pelvis WO Cont Date of Exam: Exam# [id number] Ordering Dr: Clement Meeks DO -[id number] STUDY: CT CHEST, ABDOMEN T PELVIS WITHOUT [...] Clement Meeks DO; No Primary Care Physician Document Management Technician: Signed Normal [facility] ED NOTEon 04-10-2024 ED NOTE Normal [facility] ED NOTE Normal [facility] ED PROV NOTEon 04-10-2024 ED PROV NOTE Normal [facility] Emergency Department Summary on 04-10-2024 Emergency Department Summary [facility] Medical Records Department [address] [place] [address] Emergency Department Summary 04/10/24 MR#: [id number] Acct: [id number] Name: ISIDRO SMITH Rep #: [id number] : 1965 58 From: Clement Thompson PCP: Care Physician,No Primary Status:DEP ER Location: ED HPI History of Present Illness Chief Complaint: Weakness Informant: patient and spouse/S.O. Narrative Narrative: Presents by private vehicle with significant other due to worsening weakness. 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 He had weakness fall 2 days [...] left forearm this past May went to [facility] Admitted treated for compartment syndrome of his [...] nontoxic Gener (more content not included)... Normal [facility] Lactic Acidon 04-10-2024 Lactate [Moles/Vol] 2.1 mmol/L Invalid Interpretation Code 0.4-1.9 [facility] Comment on above: Order Comment: Y Result Comment: Crit ical Result(s) Called at: 19:22:19 04/10/2024 by: EVON GOVEA. Results read back by NOAH Performed By: #### L 503.6005, M200.1000 #### [facility] [address] [place], [address] Partial Thromboplast Timeon 04-10-2024 aPTT Coag (Bld) [Time] 40.1 s High 24.1-36.2 [facility] Comment on above: Performed By: #### M 100.2200 #### [facility] [address] [place], [address] Prothrombin Time w/INRon INR Coag (PPP) [Relative time] 0.9 {INR} Normal [facility] Comment on above: Performed By: #### M 100.2200 #### [facility] [address] [place], [address] PT Coag (PPP) [Time] 12.5 s Normal 11.7-14.9 [facility] Comment on above: Performed By: #### M 100.2960 #### [facility] [address] [place], [place], [address] Spine Cervical without Contr ason 04-10-2024 Spine Cervical without Contras [facility] Imaging Services [address] [place] [address] Spine Cervical without Contras MR#: [id number] Acct: [id number] Name: ISIDRO SMITH Rep #: [id number] : 1965 M 58 From: Chico Roland MD PCP: Care Physician,No Primary Status: REG ER Study: Spine Cervical without Contras Date of Exam: Exam# [id number] Ordering Dr: Clement Meeks DO -[id number] STUDY: CT CERVICAL SPINE WITHOUT CONTRAST REASON [...] Clement Meeks, DO; No Primary Care Physician Document Management Technician: Signed Normal [facility] Urinalysis, Completeon 04-10 BACTERIA 1+ /hpf Normal None Seen [facility] Comment on above: Order Comment: COLOR OF URINE MAY AFFECT DIPSTICK RESULTS. SPRIGGER TO SPECIFY Performed By: #### L 400.0001 #### [facility] [address] [place], [address] WBC 0-5 SEEN Normal 0-5 [facility] Comment on above: Order Comment: COLOR OF URINE MAY AFFECT DIPSTICK RESULTS. SPRIGGER TO SPECIFY Performed By: #### L 400.0001 #### [facility] [address] [place], [address] EPI,SQUAMOUS 0 SEEN Normal 0-5 [facility] Comment on above: Order Comment: COLOR OF URINE MAY AFFECT DIPSTICK RESULTS. SPRIGGER TO SPECIFY Performed By: #### L 400.0001 #### [facility] [address] [place], [address] Mucus Ql (Urine sed) 0 SEEN Normal [facility] Comment on above: Order Comment: COLOR OF URINE MAY AFFECT DIPSTICK RESULTS. SPRIGGER TO SPECIFY Performed By: #### L 400.0001 #### [facility] [address] [place], [address] RBC 0 SEEN Normal 0-5 [facility] Comment on above: Order Comment: COLOR OF URINE MAY AFFECT DIPSTICK RESULTS. SPRIGGER TO SPECIFY Performed By: #### L 400.0001 #### [facility] [address] 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 Right elbow, forearm, wrist and hand are nontender with no deformity. 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 Normal radial pulse. Normal sensation. He [...] or un (more content not included)... Normal [facility] Extremity Upper without Cont raon 04-08-2024 Extremity Upper without Contra [facility] Imaging Services [address] [place] [address] Extremity Upper without Contra MR#: [id number] Acct: [id number] Name: ISIDRO SMITH Rep #: [id number] : 1965 M 58 From: Arnie garcia MD PCP: Care Physician,No Primary Status: REG ER Study: Extremity Upper without Contra Date of Exam: Exam# [id number] Ordering Dr: Kenton Walker MD -[id number] STUDY: CT RIGHT SHOULDER REASON FOR EXAM: [...] Kenton Walker MD; No Primary Care Physician Document Management Technician: Signed Normal [facility] Humerus min 2 Viewson 2023 Humerus min 2 Views [facility] Imaging Services [address] [place], [place] [id number] Humerus min 2 Views MR#: [id number] Acct: [id number] Name: ISIDRO SMITH Rep #: [id number] : 1965 M 58 From: Arnie garcia MD PCP: Care Physician,No Primary Status: PRE ER Study: Humerus min 2 Views Date of Exam: 04/08/24 Exam# [id number] Ordering Dr: Kenton Walker MD -[id number] STUDY: X-RAY - RIGHT HUMERUS REASON FOR [...] Kenton Walker MD; No Primary Care Physician Document Management Technician: Signed Normal [facility] Shoulder min 2 Viewson 04-08 Shoulder min 2 Views [facility] Imaging Services [address] [place], [place] [address] Shoulder min 2 Views MR#: [id number] Acct: [id number] Name: ISIDRO SMITH Rep #: [id number] : 1965 M 58 From: Arnie garcia MD PCP: Care Physician,No Primary Status: PRE ER Study: Shoulder min 2 Views Date of Exam: 04/08/24 Exam# [id number] Ordering Dr: Kenton Walker MD -[id number] STUDY: X-RAY - RIGHT SHOULDER REASON FOR [...] Kenton Walker MD; No Primary Care Physician Document Management Technician: Signed Normal [facility] Urine Cultureon 12-09-2023 URC Culture exhibits no growth. Normal [facility] Comment on above: Performed By: #### M 100.2200 #### [facility] Laboratory [address] [place], [address] Abdomen/Pelvis without Conto n 12-08-2023 Abdomen/Pelvis without Cont [facility] Imaging Services [address] [place] [address] Abdomen/Pelvis without Cont MR#: [id number] Acct: [id number] Name: ISIDRO SMITH Rep #: [id number] : 1965 M [place] From: Tristen Foster PCP: Care Physician,No Primary Status: REG ER Study: Abdomen/Pelvis without Cont Date of Exam: 11/28 Exam# [id number] Ordering Dr: Trent Menjivar DO -[id number] STUDY: CT ABDOMEN AND PELVIS WITHOUT CONTRAST [...] Trent Menjivar, DO; No Primary Care Physician Document Management Technician: Signed Normal [facility] Basic Metabolic Profile (BMP )on 12-08-2023 BUN/CRE 18.8 RATIO Normal 10-20 [facility] Comment on above: Performed By: #### L 100.0100, L500.2500, L300.3900 #### [facility] [address] [place], [address] CA,Total 8.9 mg/dL Normal 8.5-10.1 [facility] Comment on above: Performed By: #### L 100.0100, L500.2500, L300.3900 #### [facility] [address] [place], [address] Chloride [Moles/Vol] 109 mmol/L High 98-107 [facility] Comment on above: Performed By: #### L 100.0100, L500.2500, L300.3900 #### [facility] [address] [place], [address] CO2 [Moles/Vol] 26.0 mmol/L Normal 21.0-32.0 [facility] Comment on above: Performed By: #### L 100.0100, L500.2500, L300.3900 #### [facility] [address] [place], [address] Creatinine [Mass/Vol] 1.01 mg/dL Normal 0.70-1.30 [facility] Comment on above: Result Comment: The validity of the calculated GFR GFRAA in patients over 70 years has not been determined. Clinical correlation is essential. Performed By: #### L 100.0100, L500.2500, L300.3900 #### [facility] [address] [place], [address] ECRCL 96.05 ml/min Normal [facility] Comment on above: Performed By: #### L 100.0100, L500.2500, L300.3900 #### [facility] [address] [place], [address] EST GFR - AA 98 mL/min Normal >60 [facility] Comment on above: Result Comment: Afri can Irish GFR Calc Performed By: #### L 100.0100, L500.2500, L300.3900 #### [facility] [address] [place], [address] GAP 3 Low 5-15 [facility] Comment on above: Performed By: #### L 100.0100, L500.2500, L300.3900 #### [facility] [address] [place], [address] GFR/1.73 sq M.predicted among non-blacks MDRD (S/P/Bld) [Vol rate/Area] 81 mL/min/{1.73_m2} Normal >60 [facility] Comment on above: Result Comment: Non- GFR Calc Performed By: #### L 100.0100, L500.2500, L300.3900 #### [facility] [address] [place], [address] Glucose [Mass/Vol] 123 mg/dL High 74-106 [facility] Comment on above: Result Comment: Fast ing Glucose result from 100 to 125 mg/dL suggests IMPAIRED HOMEOSTASIS per A.D.A. criteria. Performed By: #### L 100.0100, L500.2500, L300.3900 #### [facility] [address] [place], [address] Potassium [Moles/Vol] 3.8 mmol/L Normal 3.5-5.1 [facility] Comment on above: Performed By: #### L 100.0100, L500.2500, L300.3900 #### [facility] [address] [place], [address] Sodium [Moles/Vol] 138 mmol/L Normal 136-145 [facility] Comment on above: Performed By: #### L 100.0100, L500.2500, L300.3900 #### [facility] [address] [place], [address] Urea nitrogen [Mass/Vol] 19 mg/dL High 7-18 [facility] Comment on above: Performed By: #### L 100.0100, L500.2500, L300.3900 #### [facility] [address] [place], [address] CBC W/Diff, Automatedon 11-28 0-2023 Absolute Lymph 1.92 X10 3/uL Normal 0.83-4.51 [facility] Comment on above: Performed By: #### L 100.0100, L500.2500, L300.3900 #### [facility] [address] [place], [address] Absolute Neut 5.9 X10 3/uL Normal 2.0-7.7 [facility] Comment on above: Performed By: #### L 100.0100, L500.2500, L300.3900 #### [facility] [address] [place], [address] Basophils/100 WBC (Bld) 0.8 % Normal 0-1 [facility] Comment on above: Performed By: #### L 100.0100, L500.2500, L300.3900 #### [facility] [address] [place], [address] Eosinophils/100 WBC (Bld) 6.1 % High 0-5 [facility] Comment on above: Performed By: #### L 100.0100, L500.2500, L300.3900 #### [facility] [address] [place], [address] Erythrocyte distribution width (RBC) [Ratio] 19.3 % High 11.6-14.6 [facility] Comment on above: Performed By: #### L 100.0100, L500.2500, L300.3900 #### [facility] [address] [place], [address] Hematocrit (Bld) [Volume fraction] 42.3 % Normal 40-54 [facility] Comment on above: Performed By: #### L 100.0100, L500.2500, L300.3900 #### [facility] [address] [place], [address] Hemoglobin (Bld) [Mass/Vol] 13.4 g/dL Normal 13.0-16.5 [facility] Comment on above: Performed By: #### L 100.0100, L500.2500, L300.3900 #### [facility] [address] [place], [address] IG% 0.600 Normal 0.0-0.9 [facility] Comment on above: Result Comment: IG% - Immature Granulocytes (promyelocytes, myelocytes and metamyelocytes) > 1% indicates that a LEFT SHIFT is Present. Performed By: #### L 100.0100, L500.2500, L300.3900 #### [facility] [address] [place], [address] Lymphocytes/100 WBC (Bld) 20.7 % Normal 19-41 [facility] Comment on above: Performed By: #### L 100.0100, L500.2500, L300.3900 #### [facility] [address] [place], [address] MCH (RBC) [Entitic mass] 27.2 pg Normal 27.0-32.0 [facility] Comment on above: Performed By: #### L 100.0100, L500.2500, L300.3900 #### [facility] [address] [place], [address] MCHC (RBC) [Mass/Vol] 31.7 g/dL Low 32-36 [facility] Comment on above: Performed By: #### L 100.0100, L500.2500, L300.3900 #### [facility] [address] [place], [address] MCV (RBC) [Entitic vol] 86.0 fL Normal 80-94 [facility] Comment on above: Performed By: #### L 100.0100, L500.2500, L300.3900 #### [facility] [address] [place], [address] Monocytes/100 WBC (Bld) 8.4 % Normal 0-10 [facility] Comment on above: Performed By: #### L 100.0100, L500.2500, L300.3900 #### [facility] [address] [place], [address] Neutrophils/100 WBC (Bld) 63.4 % Normal 47-70 [facility] Comment on above: Performed By: #### L 100.0100, L500.2500, L300.3900 #### [facility] [address] [place], [address] Nucleated RBC (Bld) [#/Vol] 0 10*3/uL Normal 0-5 [facility] Comment on above: Performed By: #### L 100.0100, L500.2500, L300.3900 #### [facility] [address] [place], [address] Platelet mean volume (Bld) [Entitic vol] 9.3 fL Normal 6.2-12.0 [facility] Comment on above: Performed By: #### L 100.0100, L500.2500, L300.3900 #### [facility] [address] [place], [address] Platelets (Bld) [#/Vol] 581 10*3/uL High 150-450 [facility] Comment on above: Performed By: #### L 100.0100, L500.2500, L300.3900 #### [facility] [address] [place], [address] RBC (Bld) [#/Vol] 4.92 10*6/uL Normal 4.6-6.2 [facility] Comment on above: Performed By: #### L 100.0100, L500.2500, L300.3900 #### [facility] [address] [place], [address] RDW SD 59.4 fl High 35.1-43.9 [facility] Comment on above: Performed By: #### L 100.0100, L500.2500, L300.3900 #### [facility] [address] [place], [address] WBC (Bld) [#/Vol] 9.3 10*3/uL Normal 4.4-11.0 [facility] Comment on above: Performed By: #### L 100.0100, L500.2500, L300.3900 #### [facility] [address] [place], [address] Emergency Department Summary on 12-08-2023 Emergency Department Summary [facility] Medical Records Department [address] [place] [address] Emergency Department Summary 12/08/23 MR#: [id number] Acct: [id number] Name: ISIDRO SMITH Rep #: [id number] : 1965 58 From: Trent Menjivar DO [...] Patient states he has a history of [place] disease. Patient states he was seen at [facility] because she thought he may be having [...] reviewed a (more content not included)... Normal [facility] Prothrombin Time w/INRon INR Coag (PPP) [Relative time] 1.1 {INR} Normal [facility] Comment on above: Performed By: #### L 100.0100, L500.2500, L300.3900 #### [facility] [address] [place], [address] PT Coag (PPP) [Time] 14.2 s Normal 11.7-14.9 [facility] Comment on above: Performed By: #### L 100.0100, L500.2500, L300.3900 #### [facility] [address] [place], [address] Urinalysis, Completeon 12-07 BACTERIA 1+ /hpf Normal None Seen [facility] Comment on above: Order Comment: COLOR OF URINE MAY AFFECT DIPSTICK RESULTS.SPRIGGER TO SPECIFY Performed By: #### L 505.5000 #### [facility] [address] [place], [address] RBC > 100 SEEN Normal 0-5 [facility] Comment on above: Order Comment: COLOR OF URINE MAY AFFECT DIPSTICK RESULTS.SPRIGGER TO SPECIFY Performed By: #### L 505.5000 #### [facility] [address] [place], [address] WBC 5-10 SEEN Normal 0-5 [facility] Comment on above: Order Comment: COLOR OF URINE MAY AFFECT DIPSTICK RESULTS.SPRIGGER TO SPECIFY Performed By: #### L 505.5000 #### [facility] [address] [place], [address] EPI,SQUAMOUS 0 SEEN Normal 0-5 [facility] Comment on above: Order Comment: COLOR OF URINE MAY AFFECT DIPSTICK RESULTS.SPRIGGER TO SPECIFY Performed By: #### L 505.5000 #### [facility] [address] [place], [address] Mucus Ql (Urine sed) 0 SEEN Normal [facility] Comment on above: Order Comment: COLOR OF URINE MAY AFFECT DIPSTICK RESULTS.SPRIGGER TO SPECIFY Performed By: #### L 505.5000 #### [facility] [address] [place], [address] ALLIED HEALTHon 8 ALLIED HEALTH Normal [facility] Basic metabolic 2000 panelon 12-05-2023 Anion gap [Moles/Vol] 11 mmol/L Normal 8-15 [facility] Comment on above: Order Comment: Speci men Type: BLOOD SPECIMENOrdering Facility: [facility] Address: [address] [place] [address] Performed By: #### 2 4321-2 ####[facility] [place] [facility]ORYCLIA [id number] [place] [address] [place] Calcium [Mass/Vol] 9.3 mg/dL Normal 8.5-10.2 [facility] Comment on above: Order Comment: Speci men Type: BLOOD SPECIMENOrdering Facility: [facility] Address: [address] [place] [address] Performed By: #### 2 4321-2 ####[facility] [place] [place] LABORATORYCLIA [id number] [place] [address] [place] Chloride [Moles/Vol] 105 mmol/L Normal 98-107 [facility] Comment on above: Order Comment: Speci men Type: BLOOD SPECIMENOrdering Facility: [facility] Address: [address] [place] [address] Performed By: #### 2 4321-2 ####[facility] [place] LABORATORYCLIA [id number] [place] [address] [place] CO2 [Moles/Vol] 24 mmol/L Normal 22-30 [facility] Comment on above: Order Comment: Speci men Type: BLOOD SPECIMENOrdering Facility: [facility] Address: [address] [id number] Performed By: #### 2 4321-2 ####[facility] [place] LABORATORYCLIA [id number] [place] [id number] [place] [facility] Creatinine [Mass/Vol] 0.91 mg/dL Normal 0.73-1.22 [facility] Comment on above: Order Comment: Speci men Type: BLOOD SPECIMENOrdering Facility: [facility] Address: [address] [place] [address] Performed By: #### 2 4321-2 ####[facility] [place] [facility]ATORYCLIA [id number] [place] [id number] [facility] Creatinine and Glomerular filtration rate.predicted panel (S/P/Bld) 98 mL/min/1.73m??? Normal >=60 [facility] Comment on above: Order Comment: Speci men Type: BLOOD SPECIMENOrdering Facility: [facility] Address: [address] [place] [address] Result Comment: Amriaa mated Glomerular Filtration Rate (eGFR) is calculated [...] actual GFR. Performed By: #### 2 4321-2 ####[facility] [place] [facility]ATORYCLIA [id number] [place] [id number] [place] Glucose [Mass/Vol] 106 mg/dL High 74-99 [facility] Comment on above: Order Comment: Speci men Type: BLOOD SPECIMENOrdering Facility: [facility] Address: [address] [place] [address] Result Comment: The [place] Diabetes Association (ADA) provides guidance for cutoff [...] Standards of Medical Care in Diabetes 2016, [place] Diabetes [employer]. Diabetes Care. 2016.39(Suppl 1). Performed By: #### 2 4321-2 ####[facility] [place] [facility]ATORYCLIA [id number] [address] STATES OF [facility] Potassium [Moles/Vol] 3.7 mmol/L Normal 3.7-5.1 [facility] Comment on above: Order Comment: Speci men Type: BLOOD SPECIMENOrdering Facility: [facility] Address: [address] [place] [address] Performed By: #### 2 4321-2 ####[facility] [place] LABORATORYCLIA [id number] [address] STATES [facility] Sodium [Moles/Vol] 140 mmol/L Normal 136-144 [facility] Comment on above: Order Comment: Luis Danieli caitie Type: BLOOD SPECIMENOrdering Facility: [facility] Address: [address] [place] [address] Performed By: #### 2 4321-2 ####[facility] [facility]ATORYCLIA [id number] [address] STATES [facility] Urea nitrogen [Mass/Vol] 15 mg/dL Normal 9-24 [facility] Comment on above: Order Comment: Speci men Type: BLOOD SPECIMENOrdering Facility: [facility] Address: [address] [place] [address] Performed By: #### 2 4321-2 ####[facility] [place] [place] [facility]ATORYCLIA [id number] [address] [place] CBC W Auto Differential pane l (Bld)on 12-05-2023 Basophils (Bld) [#/Vol] 0.06 10*3/uL Normal <0.11 [facility] Comment on above: Order Comment: Speci men Type: BLOOD SPECIMENOrdering Facility: [facility] Address: [address] [place] [address] Performed By: #### 5 7021-8 ####[facility]ORYCL[facility] [id number] [address] [place] Basophils/100 WBC (Bld) 0.6 % Normal [facility] Comment on above: Order Comment: Speci men Type: BLOOD SPECIMENOrdering Facility: [facility] Address: [address] [place] [address] Performed By: #### 5 7021-8 ####[facility]ATORYCLIA [id number] [address] [place] Differential cell count method Nom (Bld) Auto Normal [facility] Comment on above: Order Comment: Speci men Type: BLOOD SPECIMENOrdering Facility: [facility] Address: [address] [place] [address] Performed By: #### 5 7021-8 ####[facility] [place] [place] [facility]ATORYCLIA [id number] [address] [place] Eosinophils (Bld) [#/Vol] 0.47 10*3/uL High <0.46 [facility] Comment on above: Order Comment: Speci men Type: BLOOD SPECIMENOrdering Facility: [facility] Address: [address] [place] [address] Performed By: #### 5 7021-8 ####[facility] [place] [place] [facility]ATORYCLIA [id number] [address] Eosinophils/100 WBC (Bld) 5.1 % Normal [facility] Comment on above: Order Comment: Speci men Type: BLOOD SPECIMENOrdering Facility: [facility] Address: [address] [place] [address] Performed By: #### 5 7021-8 ####[facility]ORYCLIA [id number] [address] [place] Erythrocyte distribution width (RBC) [Ratio] 19.6 % High 11.5-15.0 [facility] Comment on above: Order Comment: Speci men Type: BLOOD SPECIMENOrdering Facility: [facility] Address: [address] [place] [address] Performed By: #### 5 7021-8 ####[facility] [place] [place] [facility]ATORYCLIA [id number] [address] [place] Hematocrit (Bld) [Volume fraction] 44.0 % Normal 39.0-51.0 [facility] Comment on above: Order Comment: Speci men Type: BLOOD SPECIMENOrdering Facility: [facility] Address: [address] [place] [address] Performed By: #### 5 7021-8 ####[facility] [place] [place] [facility]ATORYCLIA [id number] [address] [place] Hemoglobin (Bld) [Mass/Vol] 14.1 g/dL Normal 13.0-17.0 [facility] Comment on above: Order Comment: Speci men Type: BLOOD SPECIMENOrdering Facility: [facility] Address: [address] [place] [address] Performed By: #### 5 7021-8 ####[facility] [place] [place] [facility]ATORYCLIA [id number] [address] [place] Immature granulocytes (Bld) [#/Vol] 0.04 10*3/uL Normal <0.10 [facility] Comment on above: Order Comment: Speci men Type: BLOOD SPECIMENOrdering Facility: [facility] Address: [address] [place] [address] Performed By: #### 5 7021-8 ####[facility] [place] [place] [facility]ATORYCLIA [id number] [address] [place] Immature granulocytes/100 WBC (Bld) 0.4 % Normal [facility] Comment on above: Order Comment: Speci men Type: BLOOD SPECIMENOrdering Facility: [facility] Address: [address] [place] [address] Performed By: #### 5 7021-8 ####[facility] [place] [place] [facility]ATORYCLIA [id number] [place] [address] [place] Lymphocytes (Bld) [#/Vol] 2.95 10*3/uL Normal 1.00-4.00 [facility] Comment on above: Order Comment: Speci men Type: BLOOD SPECIMENOrdering Facility: [facility] Address: [address] [place] [address] Performed By: #### 5 7021-8 ####[facility] [place] [place] [facility]ATORYCLIA [id number] [address] STATES [facility] Lymphocytes/100 WBC (Bld) 31.8 % Normal [facility] Comment on above: Order Comment: Speci men Type: BLOOD SPECIMENOrdering Facility: [facility] Address: [address] [place] [address] Performed By: #### 5 7021-8 ####[facility] [place] [place] [facility]ATORYCLIA [id number] [address] STATES OF [facility] MCH (RBC) [Entitic mass] 27.8 pg Normal 26.0-34.0 [facility] Comment on above: Order Comment: Speci men Type: BLOOD SPECIMENOrdering Facility: [facility] Address: [address] [place] [address] Performed By: #### 5 7021-8 ####[facility] [place] [facility]ATORYCLIA [id number] [address] [place] MCHC (RBC) [Mass/Vol] 32.0 g/dL Normal 30.5-36.0 [facility] Comment on above: Order Comment: Speci men Type: BLOOD SPECIMENOrdering Facility: [facility] Address: [address] [place] [address] Performed By: #### 5 7021-8 ####[facility] [place] [place] [facility]ATORYCLIA [id number] [address] [place] MCV (RBC) [Entitic vol] 86.6 fL Normal 80.0-100.0 [facility] Comment on above: Order Comment: Speci men Type: BLOOD SPECIMENOrdering Facility: [facility] Address: [address] [place] [address] Performed By: #### 5 7021-8 ####[facility] [place] [place] [facility]ATORYCLIA [id number] [address] [place] Monocytes (Bld) [#/Vol] 0.94 10*3/uL High <0.87 [facility] Comment on above: Order Comment: Speci men Type: BLOOD SPECIMENOrdering Facility: [facility] Address: [address] [place] [address] Performed By: #### 5 7021-8 ####[facility] [place] [place] [facility]ATORYCLIA [id number] [address] [place] Monocytes/100 WBC (Bld) 10.1 % Normal [facility] Comment on above: Order Comment: Speci men Type: BLOOD SPECIMENOrdering Facility: [facility] Address: [address] [place] [address] Performed By: #### 5 7021-8 ####[facility] [place] [place] [facility]ATORYCLIA [id number] [address] [place] Neutrophils (Bld) [#/Vol] 4.81 10*3/uL Normal 1.45-7.50 [facility] Comment on above: Order Comment: Speci men Type: BLOOD SPECIMENOrdering Facility: [facility] Address: [address] [place] [address] Performed By: #### 5 7021-8 ####[facility] [place] [place] [facility]ATORYCLIA [id number] [address] [place] Neutrophils/100 WBC (Bld) 52.0 % Normal [facility] Comment on above: Order Comment: Speci men Type: BLOOD SPECIMENOrdering Facility: [facility] Address: [facility] [place] [address] Performed By: #### 5 7021-8 ####[facility] [place] [place] LAB[facility]ATORYCLIA [id number] [place] [address] [place] Nucleated RBC (Bld) [#/Vol] 10*3/uL Normal <0.01 [facility] Comment on above: Order Comment: Speci men Type: BLOOD SPECIMENOrdering Facility: [facility] Address: [address] [place] [address] Performed By: #### 5 7021-8 ####[facility] [place] [place] [facility]ORYCLIA [id number] [address] [place] Nucleated RBC/100 WBC (Bld) [Ratio] 0.0 /100 WBC Normal [facility] Comment on above: Order Comment: Speci men Type: BLOOD SPECIMENOrdering Facility: [facility] Address: [address] [place] [address] Performed By: #### 5 7021-8 ####[facility] [place] [place] [facility]ATORYCLIA [id number] [address] [place] Platelet mean volume (Bld) [Entitic vol] 9.2 fL Normal 9.0-12.7 [facility] Comment on above: Order Comment: Speci men Type: BLOOD SPECIMENOrdering Facility: [facility] Address: [address] [place] [address] Performed By: #### 5 7021-8 ####[facility] [place] [place] [facility]ATORYCLIA [id number] [address] [place] Platelets (Bld) [#/Vol] 525 10*3/uL High 150-400 [facility] Comment on above: Order Comment: Speci men Type: BLOOD SPECIMENOrdering Facility: [facility] Address: [address] [place] [address] Performed By: #### 5 7021-8 ####[facility] [place] [place] [facility]ATORYCLIA [id number] [place] [address] [place] RBC (Bld) [#/Vol] 5.08 10*6/uL Normal 4.20-6.00 [facility] Comment on above: Order Comment: Speci men Type: BLOOD SPECIMENOrdering Facility: [facility] Address: [address] [place] [address] Performed By: #### 5 7021-8 ####[facility] [place] [place] [facility]ATORYCLIA [id number] [address] [place] WBC (Bld) [#/Vol] 9.27 10*3/uL Normal 3.70-11.00 [facility] Comment on above: Order Comment: Speci men Type: BLOOD SPECIMENOrdering Facility: [facility] Address: [address] [place] [address] Performed By: #### 5 7021-8 ####[facility] [place] [place] [facility]ATORYCLIA [id number] [place] [address] [place] ABD/PEL W IVCONon 024 CT ABD/PEL W IVCON Normal [facility] ED NOTEon 12-05-2023 ED NOTE HNO ID: [id number] Author: MARTHA PRESLEY RN Service: Emergency Medicine Author Type: Registered Nurse Type: ED Notes Filed: 12/05/2023 01:03 Note Text: Pt refusing to talk with [facility] ED NOTE HNO ID: [id number] Author: MARILZU MARSHALL HUC Service: Emergency Medicine Author Type: [employer] Stitcher Type: ED Notes Filed: 12/05/2023 00:18 Note Text: [facility] notified at 0015 [facility] notified at 0017 [facility] ED PROV NOTEon 12-05-2023 ED PROV NOTE Normal [facility] Urinalysis complete panel (U )on 12-05-2023 Bilirubin Ql (U) Negative Normal Negative [facility] Comment on above: Order Comment: Speci men Type: URINE SPECIMENOrdering Facility: [facility] Address: [address] [place] [address] Performed By: #### 2 4356-8 ####[facility] [place] [place] [facility]ATORYCLIA [id number] [place] [address] [place] Clarity (Unsp spec) Clear Normal Clear [facility] Comment on above: Order Comment: Speci men Type: URINE SPECIMENOrdering Facility: [facility] Address: [address] [place] [address] Performed By: #### 2 4356-8 ####[facility] [place] [place] [facility]ATORYCLIA [id number] [address] [place] Color (U) Light Yellow Normal yellow [facility] Comment on above: Order Comment: Speci men Type: URINE SPECIMENOrdering Facility: [facility] Address: [address] [place] [address] Performed By: #### 2 4356-8 ####[facility]ORYCLIA [id number] [address] Glucose Test strip (U) [Mass/Vol] Negative Normal Trace, Negative [facility] Comment on above: Order Comment: Speci men Type: URINE SPECIMENOrdering Facility: [facility] Address: [address] [place] [address] Performed By: #### 2 4356-8 ####[facility] [place] [place] [facility]ATORYCLIA [id number] [address] OF [facility] Hemoglobin Ql (U) 2+ Abnormal Negative, Trace [facility] Comment on above: Order Comment: Speci men Type: URINE SPECIMENOrdering Facility: [facility] Address: [address] [place] [address] Performed By: #### 2 4356-8 ####[facility] [place] [place] [facility]ORYCLIA [id number] [address] [place] Ketones Ql (U) Negative Normal Negative, Trace [facility] Comment on above: Order Comment: Speci men Type: URINE SPECIMENOrdering Facility: [facility] Address: [address] [place] [address] Performed By: #### 2 4356-8 ####[facility] [place] [place] [facility]ATORYCLIA [id number] [address] Leukocyte esterase Test strip Ql (U) Negative Normal Negative, 25 Mariama/uL [facility] Comment on above: Order Comment: Speci men Type: URINE SPECIMENOrdering Facility: [facility] Address: [address] [place] [address] Performed By: #### 2 4356-8 ####[facility] [place] [place] [facility]ATORYCLIA [id number] [address] [place] Nitrite Ql (U) Negative Normal Negative [facility] Comment on above: Order Comment: Speci men Type: URINE SPECIMENOrdering Facility: [facility] Address: [address] [place] [address] Performed By: #### 2 4356-8 ####[facility] [place] [place] [facility]ORYCLIA [id number] [address] [place] pH (U) 6.0 [pH] Normal 5.0-8.0 [facility] Comment on above: Order Comment: Speci men Type: URINE SPECIMENOrdering Facility: [facility] Address: [address] [place] [address] Performed By: #### 2 4356-8 ####[facility] [place] [place] [facility]ORYCLIA [id number] [address] [place] Protein (U) [Mass/Vol] Negative Normal Trace, Negative [facility] Comment on above: Order Comment: Speci men Type: URINE SPECIMENOrdering Facility: [facility] Address: [address] [place] [address] Performed By: #### 2 4356-8 ####[facility] [place] [place] [facility]ATORYCLIA [id number] [place] [address] [place] RBC LM.HPF (Urine sed) [#/Area] 11-25 /HPF Abnormal 0-3 /HPF [facility] Comment on above: Order Comment: Speci men Type: URINE SPECIMENOrdering Facility: [facility] Address: [address] [place] [address] Performed By: #### 2 4356-8 ####[facility] [place] [place] [facility]ORYCLIA [id number] [address] [place] Specific gravity (U) [Rel density] 1.013 Normal 1.005-1.03 0 [facility] Comment on above: Order Comment: Speci men Type: URINE SPECIMENOrdering Facility: [facility] Address: [address] [place] [address] Performed By: #### 2 4356-8 ####[facility] [place] [place] [facility]ORYCLIA [id number] [address] Urobilinogen Ql (U) Normal Normal Normal [facility] Comment on above: Order Comment: Speci men Type: URINE SPECIMENOrdering Facility: [facility] Address: [address] [id number] Performed By: #### 2 4356-8 ####[facility] [place] [place] [facility]ORYCLIA [id number] [address] [place] WBC LM.HPF (Urine sed) [#/Area] 0-5 /HPF Normal 0-5 /HPF [facility] Comment on above: Order Comment: Speci men Type: URINE SPECIMENOrdering Facility: [facility] Address: [address] [place] [address] Performed By: #### 2 4356-8 ####[facility] [place] [place] [facility]ORYCL[facility] [id number] [address] [place] ED Triage Noteon 12-04-2023 ED Triage Note Normal [facility] CNOVon 08-29-2023 CNOV Normal [facility] CNOVon 08-22-2023 CNOV Normal [facility] CNPNon 08-22-2023 CNPN Normal [facility] CNPNon 08-21-2023 CNPN Normal [facility] ANES POSTPROC EVALon 024 ANES POSTPROC EVAL Normal [facility] ANES PRE-OPon 08-15-2023 ANES PRE-OP Normal [facility] BRIEF OP NOTon 08-15-2023 BRIEF OP NOT Normal [facility] BRIEF OP NOT Normal [facility] HISTORY PHYSICALon HISTORY PHYSICAL Normal [facility] OPERATIVE NOon 08-15-2023 OPERATIVE NO Normal [facility] CNPNon 08-14-2023 CNPN Normal [facility] CBC W Auto Differential pane l (Bld)on 08-11-2023 Basophils (Bld) [#/Vol] 0.09 10*3/uL Normal <0.11 [facility] Comment on above: Order Comment: Speci men Type: BLOOD SPECIMENOrdering Facility: [facility] Address: [address] [place] [address] Performed By: #### 5 7021-8 ####[facility] [place] LAB[facility]ATORYCLIA [id number] [address] [place] Basophils/100 WBC (Bld) 1.1 % Normal [facility] Comment on above: Order Comment: Speci men Type: BLOOD SPECIMENOrdering Facility: [facility] Address: [address] [place] [address] Performed By: #### 5 7021-8 ####[facility] [facility]ORATORYCLIA [id number] [address] [place] Differential cell count method Nom (Bld) Auto Normal [facility] Comment on above: Order Comment: Speci men Type: BLOOD SPECIMENOrdering Facility: [facility] Address: [address] [place] [address] Performed By: #### 5 7021-8 ####[facility] [facility]ORATORYCLIA [id number] [address] [place] Eosinophils (Bld) [#/Vol] 0.57 10*3/uL High <0.46 [facility] Comment on above: Order Comment: Speci men Type: BLOOD SPECIMENOrdering Facility: [facility] Address: [address] [place] [address] Performed By: #### 5 7021-8 ####[facility] [facility]ATORYCLIA [id number] [address] Eosinophils/100 WBC (Bld) 6.7 % Normal [facility] Comment on above: Order Comment: Speci men Type: BLOOD SPECIMENOrdering Facility: [facility] Address: [address] [place] [address] Performed By: #### 5 7021-8 ####[facility] [facility]ATORYCLIA [id number] [address] [place] Erythrocyte distribution width (RBC) [Ratio] 14.6 % Normal 11.5-15.0 [facility] Comment on above: Order Comment: Speci men Type: BLOOD SPECIMENOrdering Facility: [facility] Address: [address] [place] [address] Performed By: #### 5 7021-8 ####[facility]ORATORYCLIA [id number] [address] [place] Hematocrit (Bld) [Volume fraction] 41.3 % Normal 39.0-51.0 [facility] Comment on above: Order Comment: Speci men Type: BLOOD SPECIMENOrdering Facility: [facility] Address: [address] [place] [address] Performed By: #### 5 7021-8 ####[facility] [facility]ORATORYCLIA [id number] [place] [address] [place] Hemoglobin (Bld) [Mass/Vol] 13.3 g/dL Normal 13.0-17.0 [facility] Comment on above: Order Comment: Speci men Type: BLOOD SPECIMENOrdering Facility: [facility] Address: [address] [place] [address] Performed By: #### 5 7021-8 ####[facility] [facility]ATORYCLIA [id number] [address] [place] Immature granulocytes (Bld) [#/Vol] 10*3/uL Normal <0.10 [facility] Comment on above: Order Comment: Speci men Type: BLOOD SPECIMENOrdering Facility: [facility] Address: [address] [place] [address] Performed By: #### 5 7021-8 ####[facility] [facility]ATORYCLIA [id number] [address] [place] Immature granulocytes/100 WBC (Bld) 0.2 % Normal [facility] Comment on above: Order Comment: Speci men Type: BLOOD SPECIMENOrdering Facility: [facility] Address: [address] [place] [address] Performed By: #### 5 7021-8 ####[facility] LAB[facility]ATORYCLIA [id number] [place] [address] [place] Lymphocytes (Bld) [#/Vol] 2.42 10*3/uL Normal 1.00-4.00 [facility] Comment on above: Order Comment: Speci men Type: BLOOD SPECIMENOrdering Facility: [facility] Address: [address] [place] [address] Performed By: #### 5 7021-8 ####[facility] [facility]ATORYCLIA [id number] [address] STATES [facility] Lymphocytes/100 WBC (Bld) 28.3 % Normal [facility] Comment on above: Order Comment: Speci men Type: BLOOD SPECIMENOrdering Facility: [facility] Address: [address] [place] [address] Performed By: #### 5 7021-8 ####[facility] [facility]ORATORYCLIA [id number] [address] MCH (RBC) [Entitic mass] 29.0 pg Normal 26.0-34.0 [facility] Comment on above: Order Comment: Speci men Type: BLOOD SPECIMENOrdering Facility: [facility] Address: [address] [place] [address] Performed By: #### 5 7021-8 ####[facility] [facility]ATORYCLIA [id number] [address] [place] [facility] MCHC (RBC) [Mass/Vol] 32.2 g/dL Normal 30.5-36.0 [facility] Comment on above: Order Comment: Speci men Type: BLOOD SPECIMENOrdering Facility: [facility] Address: [address] [place] [address] Performed By: #### 5 7021-8 ####[facility] [facility]ORATORYCLIA [id number] [address] [place] [facility] MCV (RBC) [Entitic vol] 90.0 fL Normal 80.0-100.0 [facility] Comment on above: Order Comment: Speci men Type: BLOOD SPECIMENOrdering Facility: [facility] Address: [address] [place] [address] Performed By: #### 5 7021-8 ####[facility] [facility]ORATORYCLIA [id number] [address] Monocytes (Bld) [#/Vol] 0.91 10*3/uL High <0.87 [facility] Comment on above: Order Comment: Speci men Type: BLOOD SPECIMENOrdering Facility: [facility] Address: [address] [place] [address] Performed By: #### 5 7021-8 ####[facility]ORATORYCLIA [id number] [address] [place] Monocytes/100 WBC (Bld) 10.7 % Normal [facility] Comment on above: Order Comment: Speci men Type: BLOOD SPECIMENOrdering Facility: [facility] Address: [address] [place] [address] Performed By: #### 5 7021-8 ####[facility]ORATORYCLIA [id number] [place] [address] [place] Neutrophils (Bld) [#/Vol] 4.53 10*3/uL Normal 1.45-7.50 [facility] Comment on above: Order Comment: Speci men Type: BLOOD SPECIMENOrdering Facility: [facility] Address: [address] [place] [address] Performed By: #### 5 7021-8 ####[facility]ORATORYCLIA [id number] [address] [place] Neutrophils/100 WBC (Bld) 53.0 % Normal [facility] Comment on above: Order Comment: Speci men Type: BLOOD SPECIMENOrdering Facility: [facility] Address: [address] [place] [address] Performed By: #### 5 7021-8 ####[facility]ORATORYCLIA [id number] [place] [address] [place] Nucleated RBC (Bld) [#/Vol] 10*3/uL Normal <0.01 [facility] Comment on above: Order Comment: Speci men Type: BLOOD SPECIMENOrdering Facility: [facility] Address: [address] [place] [address] Performed By: #### 5 7021-8 ####[facility]ORATORYCLIA [id number] [address] [place] Nucleated RBC/100 WBC (Bld) [Ratio] 0.0 /100 WBC Normal [facility] Comment on above: Order Comment: Speci men Type: BLOOD SPECIMENOrdering Facility: [facility] Address: [address] [place] [address] Performed By: #### 5 7021-8 ####[facility] [facility]ATORYCLIA [id number] [address] [place] Platelet mean volume (Bld) [Entitic vol] 8.9 fL Low 9.0-12.7 [facility] Comment on above: Order Comment: Speci men Type: BLOOD SPECIMENOrdering Facility: [facility] Address: [address] [place] [address] Performed By: #### 5 7021-8 ####[facility] [facility]ATORYCLIA [id number] [address] [place] Platelets (Bld) [#/Vol] 577 10*3/uL High 150-400 [facility] Comment on above: Order Comment: Speci men Type: BLOOD SPECIMENOrdering Facility: [facility] Address: [address] [place] [address] Performed By: #### 5 7021-8 ####[facility] [facility]ATORYCLIA [id number] [place] [address] [place] RBC (Bld) [#/Vol] 4.59 10*6/uL Normal 4.20-6.00 [facility] Comment on above: Order Comment: Speci men Type: BLOOD SPECIMENOrdering Facility: [facility] Address: [address] [place] [address] Performed By: #### 5 7021-8 ####[facility] [facility]ATORYCLIA [id number] [address] [place] WBC (Bld) [#/Vol] 8.54 10*3/uL Normal 3.70-11.00 [facility] Comment on above: Order Comment: Speci men Type: BLOOD SPECIMENOrdering Facility: [facility] Address: [address] [place] [address] Performed By: #### 5 7021-8 ####[facility] LABORATORYCLIA [id number] [place] [address] [place] CONSULTon 08-11-2023 CONSULT Normal [facility] ED NOTEon 08-11-2023 ED NOTE HNO ID: [id number] Author: TERRELL JEREZ RN Service: Emergency Medicine Author Type: Registered Nurse Type: ED Notes Filed: 08/11/2023 18:29 Note Text: Pt didn't want vitals prior to leaving Normal [facility] ED NOTE HNO ID: [id number] Author: LUBNA ENWELL RN Service: ? Author Type: Registered Nurse Type: ED Notes Filed: 08/11/2023 11:52 Note Text: Bed: 42-ED Expected date: Expected time: Means of arrival: Comments: TRIAGE Normal [facility] ED NOTE HNO ID: [id number] Author: NOEMÍ TURCIOS RN Service: Emergency Medicine Author Type: Registered Nurse Type: ED Notes Filed: 08/11/2023 11:14 Note Text: No answer when called to room x2 Normal [facility] ED NOTE HNO ID: [id number] Author: NOEMÍ TURCIOS RN Service: Emergency Medicine Author Type: Registered Nurse Type: ED Notes Filed: 08/11/2023 11:02 Note Text: No answer when called to room Normal [facility] ED NOTE HNO ID: [id number] Author: LUBNA NEWELL RN Service: ? Author Type: Registered Nurse Type: ED Notes Filed: 08/11/2023 11:00 Note Text: Bed: 40-ED Expected date: Expected time: Means of arrival: Comments: TRIAGE Normal [facility] ED PROV NOTEon 08-11-2023 ED PROV NOTE Normal [facility] CBC panel Auto (Bld)on 08-07 Erythrocyte distribution width (RBC) [Ratio] 14.4 % Normal 11.5-15.0 [facility] Comment on above: Order Comment: Speci men Type: BLOOD SPECIMENOrdering Facility: [facility] Address: [address] [place] [address] Performed By: #### 5 8410-2 ####[facility] [facility]ATORYCLIA [id number] [address] Hematocrit (Bld) [Volume fraction] 37.2 % Low 39.0-51.0 [facility] Comment on above: Order Comment: Speci men Type: BLOOD SPECIMENOrdering Facility: [facility] Address: [address] [place] [address] Performed By: #### 5 8410-2 ####[facility] LABORATORYCLIA [id number] [address] OF [facility] Hemoglobin (Bld) [Mass/Vol] 12.2 g/dL Low 13.0-17.0 [facility] Comment on above: Order Comment: Speci men Type: BLOOD SPECIMENOrdering Facility: [facility] Address: [address] [place] [address] Performed By: #### 5 8410-2 ####[facility] [facility]ATORYCLIA [id number] [address] [place] [facility] MCH (RBC) [Entitic mass] 29.5 pg Normal 26.0-34.0 [facility] Comment on above: Order Comment: Speci men Type: BLOOD SPECIMENOrdering Facility: [facility] Address: [address] [place] [address] Performed By: #### 5 8410-2 ####[facility] [facility]ATORYCLIA [id number] [address] [place] MCHC (RBC) [Mass/Vol] 32.8 g/dL Normal 30.5-36.0 [facility] Comment on above: Order Comment: Speci men Type: BLOOD SPECIMENOrdering Facility: [facility] Address: [address] [place] [address] Performed By: #### 5 8410-2 ####[facility] [facility]ATORYCLIA [id number] [address] MCV (RBC) [Entitic vol] 90.1 fL Normal 80.0-100.0 [facility] Comment on above: Order Comment: Speci men Type: BLOOD SPECIMENOrdering Facility: [facility] Address: [address] [place] [address] Performed By: #### 5 8410-2 ####[facility] [facility]ATORYCLIA [id number] [address] [place] Nucleated RBC (Bld) [#/Vol] 10*3/uL Normal <0.01 [facility] Comment on above: Order Comment: Speci men Type: BLOOD SPECIMENOrdering Facility: [facility] Address: [address] [place] [address] Performed By: #### 5 8410-2 ####[facility] [facility]ATORYCLIA [id number] [address] [place] Platelet mean volume (Bld) [Entitic vol] 9.2 fL Normal 9.0-12.7 [facility] Comment on above: Order Comment: Speci men Type: BLOOD SPECIMENOrdering Facility: [facility] Address: [address] [place] [address] Performed By: #### 5 8410-2 ####[facility] [facility]ATORYCLIA [id number] [address] [place] Platelets (Bld) [#/Vol] 646 10*3/uL High 150-400 [facility] Comment on above: Order Comment: Speci men Type: BLOOD SPECIMENOrdering Facility: [facility] Address: [address] [place] [address] Performed By: #### 5 8410-2 ####[facility] [facility]ATORYCLIA [id number] [place] [address] [place] RBC (Bld) [#/Vol] 4.13 10*6/uL Low 4.20-6.00 [facility] Comment on above: Order Comment: Speci men Type: BLOOD SPECIMENOrdering Facility: [facility] Address: [address] [place] [address] Performed By: #### 5 8410-2 ####[facility] [facility]ATORYCLIA [id number] [address] [place] WBC (Bld) [#/Vol] 7.42 10*3/uL Normal 3.70-11.00 [facility] Comment on above: Order Comment: Speci men Type: BLOOD SPECIMENOrdering Facility: [facility] Address: [address] [place] [address] Performed By: #### 5 8410-2 ####[facility] [facility]ATORYCLIA [id number] [place] [address] [facility] CNDSon 08-07-2023 CNDS Normal [facility] CASE MGT INIT ASSESon 2023 CASE MGT INIT ASSES Normal [facility] CONSULT PROGon 08-06-2023 CONSULT PROG Normal [facility] ED NOTEon 08-06-2023 ED NOTE HNO ID: [id number] Author: NIDA MCDONENLL RN Service: Emergency Medicine Author Type: Registered Nurse Type: ED Notes Filed: 08/06/2023 06:13 Note Text: Report given to FRANKIE Jane - [facility] ED NOTE Normal [facility] ED NOTE HNO ID: [id number] Author: NIDA MCDONNELL RN Service: Emergency Medicine Author Type: Registered Nurse Type: ED Notes Filed: 08/06/2023 04:19 Note Text: Pt ambulating to restroom independently, steady on feet Normal [facility] ED NOTE HNO ID: [id number] Author: NIDA MCDONNELL RN Service: Emergency Medicine Author Type: Registered Nurse Type: ED Notes Filed: 08/06/2023 01:47 Note Text: Waiting on Benefix to be delivered by pharmacy Normal [facility] ED PROV NOTEon 08-06-2023 ED PROV NOTE Normal [facility] ED PROV NOTE Normal [facility] HISTORY PHYSICALon HISTORY PHYSICAL Normal [facility] CBC W Auto Differential pane l (Bld)on 08-05-2023 Basophils (Bld) [#/Vol] 0.09 10*3/uL Normal <0.11 [facility] Comment on above: Order Comment: Speci men Type: BLOOD SPECIMENOrdering Facility: [facility] Address: [address] [place] [address] Performed By: #### 5 7021-8 ####[facility]ATORYCLIA [id number] [address] [place] Basophils/100 WBC (Bld) 1.1 % Normal [facility] Comment on above: Order Comment: Speci men Type: BLOOD SPECIMENOrdering Facility: [facility] Address: [address] [place] [address] Performed By: #### 5 7021-8 ####[facility]ORYCLIA [id number] [address] [place] Differential cell count method Nom (Bld) Auto Normal [facility] Comment on above: Order Comment: Speci men Type: BLOOD SPECIMENOrdering Facility: [facility] Address: [address] [place] [address] Performed By: #### 5 7021-8 ####[facility] [place] [facility]ORYCLIA [id number] [address] [place] Eosinophils (Bld) [#/Vol] 1.23 10*3/uL High <0.46 [facility] Comment on above: Order Comment: Speci men Type: BLOOD SPECIMENOrdering Facility: [facility] Address: [address] [place] [address] Performed By: #### 5 7021-8 ####[facility] [place] [place] [facility]ORYCLIA [id number] [address] [place] Eosinophils/100 WBC (Bld) 14.7 % Normal [facility] Comment on above: Order Comment: Speci men Type: BLOOD SPECIMENOrdering Facility: [facility] Address: [address] [place] [address] Performed By: #### 5 7021-8 ####[facility]ORYCLIA [id number] [address] [place] Erythrocyte distribution width (RBC) [Ratio] 14.3 % Normal 11.5-15.0 [facility] Comment on above: Order Comment: Speci men Type: BLOOD SPECIMENOrdering Facility: [facility] Address: [address] [place] [address] Performed By: #### 5 7021-8 ####[facility]ORYCLIA [id number] [address] [place] Hematocrit (Bld) [Volume fraction] 38.5 % Low 39.0-51.0 [facility] Comment on above: Order Comment: Speci men Type: BLOOD SPECIMENOrdering Facility: [facility] Address: [address] [place] [address] Performed By: #### 5 7021-8 ####[facility] [place] [place] [facility]ORYCLIA [id number] [address] [place] Hemoglobin (Bld) [Mass/Vol] 12.2 g/dL Low 13.0-17.0 [facility] Comment on above: Order Comment: Speci men Type: BLOOD SPECIMENOrdering Facility: [facility] Address: [address] [place] [address] Performed By: #### 5 7021-8 ####[facility] [place] [place] [facility]ORYCLIA [id number] [address] [place] Immature granulocytes (Bld) [#/Vol] 10*3/uL Normal <0.10 [facility] Comment on above: Order Comment: Speci men Type: BLOOD SPECIMENOrdering Facility: [facility] Address: [address] [place] [address] Performed By: #### 5 7021-8 ####[facility] [place] [place] [facility]ORYCLIA [id number] [address] [place] Immature granulocytes/100 WBC (Bld) 0.2 % Normal [facility] Comment on above: Order Comment: Speci men Type: BLOOD SPECIMENOrdering Facility: [facility] Address: [address] [place] [address] Performed By: #### 5 7021-8 ####[facility]ORYCLIA [id number] [place] [address] [place] Lymphocytes (Bld) [#/Vol] 2.85 10*3/uL Normal 1.00-4.00 [facility] Comment on above: Order Comment: Speci men Type: BLOOD SPECIMENOrdering Facility: [facility] Address: [address] [place] [address] Performed By: #### 5 7021-8 ####[facility] [place] [place] [facility]ORYCLIA [id number] [address] [place] [facility] Lymphocytes/100 WBC (Bld) 34.0 % Normal [facility] Comment on above: Order Comment: Speci men Type: BLOOD SPECIMENOrdering Facility: [facility] Address: [address] [place] [address] Performed By: #### 5 7021-8 ####[facility] [place] [place] [facility]ORYCLIA [id number] [address] [place] [facility] MCH (RBC) [Entitic mass] 28.7 pg Normal 26.0-34.0 [facility] Comment on above: Order Comment: Speci men Type: BLOOD SPECIMENOrdering Facility: [facility] Address: [address] [place] [address] Performed By: #### 5 7021-8 ####[facility] [place] [place] [facility]ORYCLIA [id number] [address] [place] MCHC (RBC) [Mass/Vol] 31.7 g/dL Normal 30.5-36.0 [facility] Comment on above: Order Comment: Speci men Type: BLOOD SPECIMENOrdering Facility: [facility] Address: [address] [place] [address] Performed By: #### 5 7021-8 ####[facility] [place] [place] [facility]ORYCLIA [id number] [address] [place] MCV (RBC) [Entitic vol] 90.6 fL Normal 80.0-100.0 [facility] Comment on above: Order Comment: Speci men Type: BLOOD SPECIMENOrdering Facility: [facility] Address: [address] [place] [address] Performed By: #### 5 7021-8 ####[facility] [place] [place] [facility]ORYCLIA [id number] [address] [place] Monocytes (Bld) [#/Vol] 0.85 10*3/uL Normal <0.87 [facility] Comment on above: Order Comment: Speci men Type: BLOOD SPECIMENOrdering Facility: [facility] Address: [address] [place] [address] Performed By: #### 5 7021-8 ####[facility]ATORYCLIA [id number] [address] [place] Monocytes/100 WBC (Bld) 10.1 % Normal [facility] Comment on above: Order Comment: Speci men Type: BLOOD SPECIMENOrdering Facility: [facility] Address: [address] [place] [address] Performed By: #### 5 7021-8 ####[facility]ORYCLIA [id number] [address] [place] Neutrophils (Bld) [#/Vol] 3.35 10*3/uL Normal 1.45-7.50 [facility] Comment on above: Order Comment: Speci men Type: BLOOD SPECIMENOrdering Facility: [facility] Address: [address] [place] [address] Performed By: #### 5 7021-8 ####[facility]ORYCLIA [id number] [address] [place] Neutrophils/100 WBC (Bld) 39.9 % Normal [facility] Comment on above: Order Comment: Speci men Type: BLOOD SPECIMENOrdering Facility: [facility] Address: [address] [place] [address] Performed By: #### 5 7021-8 ####[facility]ATORYCLIA [id number] [place] [address] [place] Nucleated RBC (Bld) [#/Vol] 10*3/uL Normal <0.01 [facility] Comment on above: Order Comment: Speci men Type: BLOOD SPECIMENOrdering Facility: [facility] Address: [address] [place] [address] Performed By: #### 5 7021-8 ####[facility]ORYCLIA [id number] [address] [place] Nucleated RBC/100 WBC (Bld) [Ratio] 0.0 /100 WBC Normal [facility] Comment on above: Order Comment: Speci men Type: BLOOD SPECIMENOrdering Facility: [facility] Address: [address] [place] [address] Performed By: #### 5 7021-8 ####[facility] [place] [place] [facility]ORYCLIA [id number] [place] [address] [place] Platelet mean volume (Bld) [Entitic vol] 8.9 fL Low 9.0-12.7 [facility] Comment on above: Order Comment: Speci men Type: BLOOD SPECIMENOrdering Facility: [facility] Address: [address] [place] [address] Performed By: #### 5 7021-8 ####[facility] [place] LABORATORYCLIA [id number] [address] [place] Platelets (Bld) [#/Vol] 659 10*3/uL High 150-400 [facility] Comment on above: Order Comment: Speci men Type: BLOOD SPECIMENOrdering Facility: [facility] Address: [address] [place] [address] Performed By: #### 5 7021-8 ####[facility] LABORATORYCLIA [id number] [place] [address] [place] RBC (Bld) [#/Vol] 4.25 10*6/uL Normal 4.20-6.00 [facility] Comment on above: Order Comment: Speci men Type: BLOOD SPECIMENOrdering Facility: [facility] Address: [address] [place] [address] Performed By: #### 5 7021-8 ####[facility] LABORATORYCLIA [id number] [address] [place] WBC (Bld) [#/Vol] 8.39 10*3/uL Normal 3.70-11.00 [facility] Comment on above: Order Comment: Speci men Type: BLOOD SPECIMENOrdering Facility: [facility] Address: [address] [place] [address] [place] [id number] Performed By: #### 5 7021-8 ####[facility] LABORATORYCLIA [id number] [place] [address] [place] CNOVon 08-05-2023 CNOV Normal [facility] ED Triage Noteon 08-05-2023 ED Triage Note Normal [facility] CNOVon 07-25-2023 CNOV Normal [facility] CNOVon 07-23-2023 CNOV Normal [facility] CNPNon 07-22-2023 CNPN Normal [facility] ANES POSTPROC EVALon 024 ANES POSTPROC EVAL Normal [facility] ANES PRE-OPon 07-18-2023 ANES PRE-OP Normal [facility] BRIEF OP NOTon 07-18-2023 BRIEF OP NOT Normal [facility] OPERATIVE NOon 07-18-2023 OPERATIVE NO Normal [facility] CNOVon 07-15-2023 CNOV Normal [facility] CNOVon 07-10-2023 CNOV Normal [facility] CNOVon 07-07-2023 CNOV Normal [facility] Emergency Department Summary on 07-05-2023 Emergency Department Summary [facility] Medical Records Department [address] [place] [address] Emergency Department Summary 07/05/23 MR#: [id number] Acct: [id number] Name: ISIDRO SMITH ALPESH Rep #: [id number] : 1965 57 From: Stevie Cassidy DO PCP: Care Physician,No Primary Status:REG ER Location: ED HPI History of Present Illness Chief Complaint: Wound Narrative Narrative: 57-year-old male presenting with wound on the left forearm. 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 He had a fasciotomy done at [facility]. Patient states the wound VAC was placed [...] use his left hand/arm without any difficulty. [facility] Medical History Factor IX (functional) deficiency Hx [...] problems, contact your Primary Care Provider. Call [facility] ([phone]) or report to the closest Emergency Room. Call 911 if necessary. 07/05/23 0907 Cosigner Signature (if applicable): CC: No Primary Care Physician Signed Normal [facility] ANES POSTPROC EVALon 024 ANES POSTPROC EVAL Normal [facility] ANES PRE-OPon 07-03-2023 ANES PRE-OP Normal [facility] BRIEF OP NOTon 07-03-2023 BRIEF OP NOT Normal [facility] CNPNon 07-03-2023 CNPN Normal [facility] HISTORY PHYSICALon HISTORY PHYSICAL Normal [facility] NURSING PROGon 07-03-2023 NURSING PROG Normal [facility] OPERATIVE NOon 07-03-2023 OPERATIVE NO Normal [facility] CNOVon 07-02-2023 CNOV Normal [facility] ABSCESS AND WOUND CULTURE WI TH GRAM STAINon 06-27-2023 Bacteria identified Cx Nom (Wound) Few Staphylococcus aureus Abnormal [facility] Bacteria identified Cx Nom (Wound) Rare Staphylococcus epidermidis Abnormal [facility] ANES POSTPROC EVALon 2 023 ANES POSTPROC EVAL Normal [facility] ANES PRE-OPon 06-27-2023 ANES PRE-OP Normal [facility] BRIEF OP NOTon 06-27-2023 BRIEF OP NOT Normal [facility] Bacteria identified Cx Nom ( Wound)on 06-27-2023 Microscopic observation Smear Nom (Unsp spec) Positive Abnormal [facility] Microscopic observation Smear Nom (Unsp spec) Many Polymorphonuclear leukocytes Abnormal [facility] HISTORY PHYSICALon HISTORY PHYSICAL Normal [facility] OPERATIVE NOon 06-27-2023 OPERATIVE NO Normal [facility] ABSCESS AND WOUND CULTURE WI TH GRAM STAINon 06-24-2023 Bacteria identified Cx Nom (Wound) Invalid Interpretation Code [facility] Bacteria Wnd Culton 06-24-20 Bacteria identified Cx Nom (Wound) Abnormal [facility] Comment on above: Performed By: #### 6 462-6 ####[facility] LABORATORYCLIA [id number] [place] [address] [place] CNOVon 06-24-2023 CNOV Normal [facility] ALLIED HEALTHon 06-23-2023 ALLIED HEALTH Normal [facility] CBC W Auto Differential pane l (Bld)on 06-23-2023 Basophils (Bld) [#/Vol] 0.05 10*3/uL Normal <0.11 [facility] Comment on above: Order Comment: Speci men Type: BLOOD SPECIMENOrdering Facility: [facility] Address: [address] [place] [address] Performed By: #### 5 7021-8 ####[facility] LABORATORYCLIA [id number] [place] [address] [place] Basophils/100 WBC (Bld) 0.5 % Normal [facility] Comment on above: Order Comment: Speci men Type: BLOOD SPECIMENOrdering Facility: [facility] Address: [address] [place] [address] Performed By: #### 5 7021-8 ####[facility] LABORATORYCLIA [id number] [place] [address] [place] Differential cell count method Nom (Bld) Auto Normal [facility] Comment on above: Order Comment: Speci men Type: BLOOD SPECIMENOrdering Facility: [facility] Address: [address] [place] [address] Performed By: #### 5 7021-8 ####[facility]ATORYCLIA [id number] [address] [place] Eosinophils (Bld) [#/Vol] 0.62 10*3/uL High <0.46 [facility] Comment on above: Order Comment: Speci men Type: BLOOD SPECIMENOrdering Facility: [facility] Address: [address] [place] [address] Performed By: #### 5 7021-8 ####[facility] LABORATORYCLIA [id number] [address] Eosinophils/100 WBC (Bld) 5.7 % Normal [facility] Comment on above: Order Comment: Speci men Type: BLOOD SPECIMENOrdering Facility: [facility] Address: [address] [place] [address] Performed By: #### 5 7021-8 ####[facility] LABORATORYCLIA [id number] [address] Erythrocyte distribution width (RBC) [Ratio] 14.1 % Normal 11.5-15.0 [facility] Comment on above: Order Comment: Speci men Type: BLOOD SPECIMENOrdering Facility: [facility] Address: [address] [place] [address] Performed By: #### 5 7021-8 ####[facility] LABORATORYCLIA [id number] [address] [place] Hematocrit (Bld) [Volume fraction] 38.5 % Low 39.0-51.0 [facility] Comment on above: Order Comment: Speci men Type: BLOOD SPECIMENOrdering Facility: [facility] Address: [address] [place] [address] Performed By: #### 5 7021-8 ####[facility] LABORATORYCLIA [id number] [address] [place] Hemoglobin (Bld) [Mass/Vol] 12.9 g/dL Low 13.0-17.0 [facility] Comment on above: Order Comment: Speci men Type: BLOOD SPECIMENOrdering Facility: [facility] Address: [address] [place] [address] Performed By: #### 5 7021-8 ####[facility] LABORATORYCLIA [id number] [address] Immature granulocytes (Bld) [#/Vol] 0.07 10*3/uL Normal <0.10 [facility] Comment on above: Order Comment: Speci men Type: BLOOD SPECIMENOrdering Facility: [facility] Address: [address] [place] [address] Performed By: #### 5 7021-8 ####[facility] LABORATORYCLIA [id number] [address] Immature granulocytes/100 WBC (Bld) 0.6 % Normal [facility] Comment on above: Order Comment: Speci men Type: BLOOD SPECIMENOrdering Facility: [facility] Address: [address] [place] [address] Performed By: #### 5 7021-8 ####[facility] LABORATORYCLIA [id number] [address] [place] Lymphocytes (Bld) [#/Vol] 1.85 10*3/uL Normal 1.00-4.00 [facility] Comment on above: Order Comment: Speci men Type: BLOOD SPECIMENOrdering Facility: [facility] Address: [address] [place] [address] Performed By: #### 5 7021-8 ####[facility] LABORATORYCLIA [id number] [address] [place] Lymphocytes/100 WBC (Bld) 16.9 % Normal [facility] Comment on above: Order Comment: Speci men Type: BLOOD SPECIMENOrdering Facility: [facility] Address: [address] [place] [address] Performed By: #### 5 7021-8 ####[facility] LABORATORYCLIA [id number] [place] [address] [place] MCH (RBC) [Entitic mass] 32.4 pg Normal 26.0-34.0 [facility] Comment on above: Order Comment: Speci men Type: BLOOD SPECIMENOrdering Facility: [facility] Address: [address] [place] [address] Performed By: #### 5 7021-8 ####[facility] LABORATORYCLIA [id number] [address] [place] MCHC (RBC) [Mass/Vol] 33.5 g/dL Normal 30.5-36.0 [facility] Comment on above: Order Comment: Speci men Type: BLOOD SPECIMENOrdering Facility: [facility] Address: [address] [place] [address] Performed By: #### 5 7021-8 ####[facility] LABORATORYCLIA [id number] [address] STATES OF [facility] MCV (RBC) [Entitic vol] 96.7 fL Normal 80.0-100.0 [facility] Comment on above: Order Comment: Speci men Type: BLOOD SPECIMENOrdering Facility: [facility] Address: [address] [place] [address] Performed By: #### 5 7021-8 ####[facility] LABORATORYCLIA [id number] [address] [place] Monocytes (Bld) [#/Vol] 1.11 10*3/uL High <0.87 [facility] Comment on above: Order Comment: Speci men Type: BLOOD SPECIMENOrdering Facility: [facility] Address: [address] [place] [address] Performed By: #### 5 7021-8 ####[facility] LABORATORYCLIA [id number] [address] Monocytes/100 WBC (Bld) 10.2 % Normal [facility] Comment on above: Order Comment: Speci men Type: BLOOD SPECIMENOrdering Facility: [facility] Address: [address] [place] [address] Performed By: #### 5 7021-8 ####[facility] LABORATORYCLIA [id number] [place] [address] [place] Neutrophils (Bld) [#/Vol] 7.23 10*3/uL Normal 1.45-7.50 [facility] Comment on above: Order Comment: Speci men Type: BLOOD SPECIMENOrdering Facility: [facility] Address: [address] [place] [address] Performed By: #### 5 7021-8 ####[facility] LABORATORYCLIA [id number] [address] [place] Neutrophils/100 WBC (Bld) 66.1 % Normal [facility] Comment on above: Order Comment: Speci men Type: BLOOD SPECIMENOrdering Facility: [facility] Address: [address] [place] [address] Performed By: #### 5 7021-8 ####[facility] LABORATORYCLIA [id number] [place] [address] [place] Nucleated RBC (Bld) [#/Vol] 10*3/uL Normal <0.01 [facility] Comment on above: Order Comment: Speci men Type: BLOOD SPECIMENOrdering Facility: [facility] Address: [address] [place] [address] Performed By: #### 5 7021-8 ####[facility] LABORATORYCLIA [id number] [address] [place] Nucleated RBC/100 WBC (Bld) [Ratio] 0.0 /100 WBC Normal [facility] Comment on above: Order Comment: Speci men Type: BLOOD SPECIMENOrdering Facility: [facility] Address: [address] [place] [address] Performed By: #### 5 7021-8 ####[facility] LABORATORYCLIA [id number] [address] [place] Platelet mean volume (Bld) [Entitic vol] 9.1 fL Normal 9.0-12.7 [facility] Comment on above: Order Comment: Speci men Type: BLOOD SPECIMENOrdering Facility: [facility] Address: [address] [place] [address] Performed By: #### 5 7021-8 ####[facility] LABORATORYCLIA [id number] [address] OF [facility] Platelets (Bld) [#/Vol] 545 10*3/uL High 150-400 [facility] Comment on above: Order Comment: Speci men Type: BLOOD SPECIMENOrdering Facility: [facility] Address: [address] [place] [address] Performed By: #### 5 7021-8 ####[facility] LABORATORYCLIA [id number] [address] [place] RBC (Bld) [#/Vol] 3.98 10*6/uL Low 4.20-6.00 [facility] Comment on above: Order Comment: Speci men Type: BLOOD SPECIMENOrdering Facility: [facility] Address: [address] [place] [address] Performed By: #### 5 7021-8 ####[facility] LABORATORYCLIA [id number] [address] OF [facility] WBC (Bld) [#/Vol] 10.93 10*3/uL Normal 3.70-11.00 [facility] Comment on above: Order Comment: Speci men Type: BLOOD SPECIMENOrdering Facility: [facility] Address: [address] [place] [address] Performed By: #### 5 7021-8 ####[facility] LABORATORYCLIA [id number] [address] [place] CHEST W IVCON PEon 2022 CT CHEST W IVCON PE Normal [facility] Comprehensive metabolic 2000 panelon 06-23-2023 Albumin [Mass/Vol] 3.7 g/dL Low 3.9-4.9 [facility] Comment on above: Order Comment: Speci men Type: BLOOD SPECIMENOrdering Facility: [facility] Address: [address] [place] [address] Performed By: #### 1 9123-9, 3040-3, 27513-9 ####[facility] LABORATORYCLIA [id number] [place] [address] [place] ALP [Catalytic activity/Vol] 113 U/L Normal 38-113 [facility] Comment on above: Order Comment: Speci men Type: BLOOD SPECIMENOrdering Facility: [facility] Address: [address] [place] [address] Performed By: #### 1 9123-9, 3040-3, 53702-1 ####[facility] LABORATORYCLIA [id number] [place] [address] [place] ALT With P-5'-P [Catalytic activity/Vol] 31 U/L Normal 10-54 [facility] Comment on above: Order Comment: Speci men Type: BLOOD SPECIMENOrdering Facility: [facility] Address: [address] [place] [address] Performed By: #### 1 9123-9, 3040-3, 92152-9 ####[facility] LABORATORYCLIA [id number] [address] STATES OF [facility] Anion gap [Moles/Vol] 10 mmol/L Normal 9-18 [facility] Comment on above: Order Comment: Speci men Type: BLOOD SPECIMENOrdering Facility: [facility] Address: [address] [place] [address] Performed By: #### 1 9123-9, 3040-3, 49734-4 ####[facility] LABORATORYCLIA [id number] [address] [place] AST With P-5'-P [Catalytic activity/Vol] 34 U/L Normal 14-40 [facility] Comment on above: Order Comment: Speci men Type: BLOOD SPECIMENOrdering Facility: [facility] Address: [address] [place] [address] Performed By: #### 1 9123-9, 3040-3, 05553-3 ####[facility] LABORATORYCLIA [id number] [place] [address] [place] Bilirubin [Mass/Vol] 0.6 mg/dL Normal 0.2-1.3 [facility] Comment on above: Order Comment: Speci men Type: BLOOD SPECIMENOrdering Facility: [facility] Address: [address] [place] [address] Performed By: #### 1 9123-9, 3, ####[facility] LABORATORYCLIA [id number] [place] [address] [place] Calcium [Mass/Vol] 9.2 mg/dL Normal 8.5-10.2 [facility] Comment on above: Order Comment: Speci men Type: BLOOD SPECIMENOrdering Facility: [facility] Address: [address] [place] [address] Performed By: #### 1 9123-9, 3, ####[facility] LABORATORYCLIA [id number] [place] [address] [place] Chloride [Moles/Vol] 104 mmol/L Normal 97-105 [facility] Comment on above: Order Comment: Speci men Type: BLOOD SPECIMENOrdering Facility: [facility] Address: [address] [place] [address] Performed By: #### 1 9123-9, 3, ####[facility] LABORATORYCLIA [id number] [place] [address] [place] CO2 [Moles/Vol] 27 mmol/L Normal 22-30 [facility] Comment on above: Order Comment: Speci men Type: BLOOD SPECIMENOrdering Facility: [facility] Address: [address] [place] [address] Performed By: #### 1 9123-9, 3, ####[facility] LABORATORYCLIA [id number] [place] [address] [place] Creatinine [Mass/Vol] 1.10 mg/dL Normal 0.73-1.22 [facility] Comment on above: Order Comment: Speci men Type: BLOOD SPECIMENOrdering Facility: [facility] Address: [address] [place] [address] Performed By: #### 1 9123-9, 3, ####[facility] SYSTEMIA [id number] [address] Creatinine and Glomerular filtration rate.predicted panel (S/P/Bld) 79 mL/min/1.73m??? Normal >=60 [facility] Comment on above: Order Comment: Speclorrie caitie Type: BLOOD SPECIMENOrdering Facility: [facility] Address: [address] [place] [address] Result Comment: Mariaa mated Glomerular Filtration Rate [...] GFR. Performed By: #### 1 9123-9, 3040-3, 08571-9 ####[facility] SYSTEMIA [id number] [address] Glucose [Mass/Vol] 104 mg/dL High 74-99 [facility] Comment on above: Order Comment: Speclorrie blood Type: BLOOD SPECIMENOrdering Facility: [facility] Address: [address] [place] [address] Result Comment: The [place] Diabetes [employer] (ADA) provides guidance for cutoff [...] Standards of Medical Care in Diabetes 2016, [employer]. Diabetes Care. 2016.39(Suppl 1). Performed By: #### 1 9123-9, 3040-3, 44311-8 ####[facility] SYSTEMIA [id number] [place] [address] [place] [facility] Potassium [Moles/Vol] 4.6 mmol/L Normal 3.7-5.1 [facility] Comment on above: Order Comment: Speci men Type: BLOOD SPECIMENOrdering Facility: [facility] Address: [address] [place] [address] Performed By: #### 1 9123-9, 3040-3, 71878-6 ####[facility]ORATORYCLIA [id number] [place] [address] [place] Protein [Mass/Vol] 6.6 g/dL Normal 6.3-8.0 [facility] Comment on above: Order Comment: Speci men Type: BLOOD SPECIMENOrdering Facility: [facility] Address: [address] [place] [address] Performed By: #### 1 9123-9, 3040-3, 36522-7 ####[facility]ORATORYCLIA [id number] [address] [place] Sodium [Moles/Vol] 141 mmol/L Normal 136-144 [facility] Comment on above: Order Comment: Speci men Type: BLOOD SPECIMENOrdering Facility: [facility] Address: [address] [place] [address] Performed By: #### 1 9123-9, 3, 89556-2 ####[facility]ORATORYCLIA [id number] [place] [address] [place] Urea nitrogen [Mass/Vol] 17 mg/dL Normal 9-24 [facility] Comment on above: Order Comment: Speci men Type: BLOOD SPECIMENOrdering Facility: [facility] Address: [address] [place] [address] Performed By: #### 1 9123-9, 3040-3, 73985-5 ####[facility]ORATORYCLIA [id number] [place] [address] [place] ECG COMPLETEon 06-23-2023 ECG COMPLETE Normal [facility] ED PROV NOTEon 06-23-2023 ED PROV NOTE Normal [facility] ED Triage Noteon 06-23-2023 ED Triage Note Normal [facility] HIGH SENSITIVITY TROPONIN T (INITIAL)on 06-23-2023 Troponin T.cardiac High sensitivity method [Mass/Vol] 17 ng/L High <12 [facility] Comment on above: Order Comment: Kartik blood Type: BLOOD SPECIMENOrdering Facility: [facility] Address: [address] [place] [address] Result Comment: When assessing risk for acute [...] 30 day MACE. Performed By: #### L [id number] ####[facility] LABORATORYCLIA [id number] [address] [place] HIGH SENSITIVITY TROPONIN T (SECOND)on 06-23-2023 Troponin T.cardiac High sensitivity method [Mass/Vol] 11 ng/L Normal <12 [facility] Comment on above: Order Comment: Kartik blood Type: BLOOD SPECIMENOrdering Facility: [facility] Address: [address] [place] [address] Result Comment: When assessing risk for acute [...] 30 day MACE. Performed By: #### L [id number] ####[employer] LABORATORYCLIA [id number] [address] [place] HIGH SENSITIVITY TROPONIN T (THIRD) 3 HRS AFTER INITIALon 06-23-2023 Troponin T.cardiac High sensitivity method [Mass/Vol] 12 ng/L High <12 [facility] Comment on above: Order Comment: Kartik blood Type: BLOOD SPECIMENOrdering Facility: [facility] Address: [address] [place] [address] Result Comment: When assessing risk for acute [...] 30 day MACE. Performed By: #### L [id number] ####[facility] [place] LABORATORYCLIA [id number] [place] [address] [place] Lipase SerPl-cCncon 06-23-20 Lipase [Catalytic activity/Vol] 31 U/L Normal 16-61 [facility] Comment on above: Order Comment: Speci men Type: BLOOD SPECIMENOrdering Facility: [facility] Address: [place] [address] Performed By: #### 1 9123-9, 3040-3, 72441-9 ####[facility] [place] LABORATORYCLIA [id number] [place] [address] [place] Magnesium SerPl-mCncon 06-23 Magnesium [Mass/Vol] 2.0 mg/dL Normal 1.7-2.3 [facility] Comment on above: Order Comment: Speci men Type: BLOOD SPECIMENOrdering Facility: [facility] Address: [place] [address] Performed By: #### 1 9123-9, 3040-3, 21826-2 ####[facility] [place] LABORATORYCLIA [id number] [place] [address] [place] CNOVon 06-20-2023 CNOV Normal [facility] Basic metabolic 2000 panelon 06-13-2023 Anion gap [Moles/Vol] 11 mmol/L Normal 9-18 [facility] Comment on above: Order Comment: Speci men Type: BLOOD SPECIMENOrdering Facility: [facility] Address: [place] [address] Performed By: #### 2 4321-2 ####[facility] [place] LABORATORYCLIA [id number] [place] [address] [place] Calcium [Mass/Vol] 8.9 mg/dL Normal 8.5-10.2 [facility] Comment on above: Order Comment: Speci men Type: BLOOD SPECIMENOrdering Facility: [facility] Address: [address] [place] [address] Performed By: #### 2 4321-2 ####[facility] [place] LABORATORYCLIA [id number] [address] [place] Chloride [Moles/Vol] 106 mmol/L High 97-105 [facility] Comment on above: Order Comment: Speci men Type: BLOOD SPECIMENOrdering Facility: [facility] Address: [address] [place] [address] Performed By: #### 2 4321-2 ####[facility] [place] [facility]ATORYCLIA [id number] [place] [id number] [place] CO2 [Moles/Vol] 24 mmol/L Normal 22-30 [facility] Comment on above: Order Comment: Speci men Type: BLOOD SPECIMENOrdering Facility: [facility] Address: [address] [place] [address] Performed By: #### 2 4321-2 ####[facility] LABORATORYCLIA [id number] [address] [place] Creatinine [Mass/Vol] 0.99 mg/dL Normal 0.73-1.22 [facility] Comment on above: Order Comment: Speci men Type: BLOOD SPECIMENOrdering Facility: [facility] Address: [address] [place] [address] Performed By: #### 2 4321-2 ####[facility] LABORATORYCLIA [id number] [address] Creatinine and Glomerular filtration rate.predicted panel (S/P/Bld) 89 mL/min/1.73m??? Normal >=60 [facility] Comment on above: Order Comment: Speci men Type: BLOOD SPECIMENOrdering Facility: [facility] Address: [address] [place] [address] Result Comment: Mariaa mated Glomerular Filtration Rate [...] actual GFR. Performed By: #### 2 4321-2 ####[facility] [facility]ATORYCLIA [id number] [place] [address] [place] Glucose [Mass/Vol] 118 mg/dL High 74-99 [facility] Comment on above: Order Comment: Speclorrie men Type: BLOOD SPECIMENOrdering Facility: [facility] Address: [address] [place] [address] Result Comment: The [employer] Diabetes [employer] (ADA) provides guidance for cutoff [...] Standards of Medical Care in Diabetes 2016, [employer]. Diabetes Care. 2016.39(Suppl 1). Performed By: #### 2 4321-2 ####[facility] [facility]ATORYCLIA [id number] [place] [address] [place] Potassium [Moles/Vol] 4.1 mmol/L Normal 3.7-5.1 [facility] Comment on above: Order Comment: Kartik blood Type: BLOOD SPECIMENOrdering Facility: [facility] Address: [address] [place] [address] Performed By: #### 2 4321-2 ####[facility] [facility]ORATORYCLIA [id number] [place] [address] [place] Sodium [Moles/Vol] 141 mmol/L Normal 136-144 [facility] Comment on above: Order Comment: Kartik caitie Type: BLOOD SPECIMENOrdering Facility: [facility] Address: [address] [place] [address] Performed By: #### 2 4321-2 ####[facility]ATORYCLIA [id number] [address] STATES [facility] Urea nitrogen [Mass/Vol] 16 mg/dL Normal 9-24 [facility] Comment on above: Order Comment: Speci men Type: BLOOD SPECIMENOrdering Facility: [facility] Address: [address] [place] [address] Performed By: #### 2 4321-2 ####[facility] [facility]ATORYCLIA [id number] [address] CASE MANAGEMon 06-13-2023 CASE MANAGEM Normal [facility] CBC W Auto Differential pane l (Bld)on 06-13-2023 Basophils (Bld) [#/Vol] 0.08 10*3/uL Normal <0.11 [facility] Comment on above: Order Comment: Speci men Type: BLOOD SPECIMENOrdering Facility: [facility] Address: [address] [place] [address] Performed By: #### 5 7021-8 ####[facility] [facility]ATORYCLIA [id number] [address] STATES [facility] Basophils/100 WBC (Bld) 0.7 % Normal [facility] Comment on above: Order Comment: Speci men Type: BLOOD SPECIMENOrdering Facility: [facility] Address: [address] [place] [address] Performed By: #### 5 7021-8 ####[facility] LABORATORYCLIA [id number] [address] Differential cell count method Nom (Bld) Auto Normal [facility] Comment on above: Order Comment: Speci men Type: BLOOD SPECIMENOrdering Facility: [facility] Address: [address] [place] [address] Performed By: #### 5 7021-8 ####[facility]ATORYCLIA [id number] [address] [place] Eosinophils (Bld) [#/Vol] 0.46 10*3/uL High <0.46 [facility] Comment on above: Order Comment: Speci men Type: BLOOD SPECIMENOrdering Facility: [facility] Address: [address] [place] [address] Performed By: #### 5 7021-8 ####[facility] [facility]ORATORYCLIA [id number] [address] [place] Eosinophils/100 WBC (Bld) 3.8 % Normal [facility] Comment on above: Order Comment: Speci men Type: BLOOD SPECIMENOrdering Facility: [facility] Address: [address] [place] [address] Performed By: #### 5 7021-8 ####[facility] [facility]ATORYCLIA [id number] [address] [place] Erythrocyte distribution width (RBC) [Ratio] 14.6 % Normal 11.5-15.0 [facility] Comment on above: Order Comment: Speci men Type: BLOOD SPECIMENOrdering Facility: [facility] Address: [address] [place] [address] Performed By: #### 5 7021-8 ####[facility] [facility]ORATORYCLIA [id number] [address] [place] Hematocrit (Bld) [Volume fraction] 39.2 % Normal 39.0-51.0 [facility] Comment on above: Order Comment: Speci men Type: BLOOD SPECIMENOrdering Facility: [facility] Address: [address] [place] [address] Performed By: #### 5 7021-8 ####[facility] [facility]ORATORYCLIA [id number] [address] [place] Hemoglobin (Bld) [Mass/Vol] 12.9 g/dL Low 13.0-17.0 [facility] Comment on above: Order Comment: Speci men Type: BLOOD SPECIMENOrdering Facility: [facility] Address: [address] [place] [address] Performed By: #### 5 7021-8 ####[facility] [facility]ORATORYCLIA [id number] [address] [place] Immature granulocytes (Bld) [#/Vol] 0.10 10*3/uL High <0.10 [facility] Comment on above: Order Comment: Speci men Type: BLOOD SPECIMENOrdering Facility: [facility] Address: [address] [place] [address] Performed By: #### 5 7021-8 ####[facility]ORATORYCLIA [id number] [address] [place] Immature granulocytes/100 WBC (Bld) 0.8 % Normal [facility] Comment on above: Order Comment: Speci men Type: BLOOD SPECIMENOrdering Facility: [facility] Address: [address] [place] [address] Performed By: #### 5 7021-8 ####[facility] [facility]ORATORYCLIA [id number] [address] [place] Lymphocytes (Bld) [#/Vol] 3.11 10*3/uL Normal 1.00-4.00 [facility] Comment on above: Order Comment: Speci men Type: BLOOD SPECIMENOrdering Facility: [facility] Address: [address] [place] [address] Performed By: #### 5 7021-8 ####[facility] [facility]ORATORYCLIA [id number] [address] [place] [facility] Lymphocytes/100 WBC (Bld) 25.5 % Normal [facility] Comment on above: Order Comment: Speci men Type: BLOOD SPECIMENOrdering Facility: [facility] Address: [address] [place] [address] Performed By: #### 5 7021-8 ####[facility]ORATORYCLIA [id number] [address] [place] MCH (RBC) [Entitic mass] 32.3 pg Normal 26.0-34.0 [facility] Comment on above: Order Comment: Speci men Type: BLOOD SPECIMENOrdering Facility: [facility] Address: [address] [place] [address] Performed By: #### 5 7021-8 ####[facility]ATORYCLIA [id number] [address] MCHC (RBC) [Mass/Vol] 32.9 g/dL Normal 30.5-36.0 [facility] Comment on above: Order Comment: Speci men Type: BLOOD SPECIMENOrdering Facility: [facility] Address: [address] [place] [address] Performed By: #### 5 7021-8 ####[facility] [facility]ATORYCLIA [id number] [address] [place] MCV (RBC) [Entitic vol] 98.2 fL Normal 80.0-100.0 [facility] Comment on above: Order Comment: Speci men Type: BLOOD SPECIMENOrdering Facility: [facility] Address: [address] [place] [address] Performed By: #### 5 7021-8 ####[facility] [facility]ORATORYCLIA [id number] [address] [place] Monocytes (Bld) [#/Vol] 1.35 10*3/uL High <0.87 [facility] Comment on above: Order Comment: Speci men Type: BLOOD SPECIMENOrdering Facility: [facility] Address: [address] [place] [address] Performed By: #### 5 7021-8 ####[facility] [facility]ORATORYCLIA [id number] [address] [place] Monocytes/100 WBC (Bld) 11.1 % Normal [facility] Comment on above: Order Comment: Speci men Type: BLOOD SPECIMENOrdering Facility: [facility] Address: [address] [place] [address] Performed By: #### 5 7021-8 ####[facility] [facility]ORATORYCLIA [id number] [address] [place] Neutrophils (Bld) [#/Vol] 7.08 10*3/uL Normal 1.45-7.50 [facility] Comment on above: Order Comment: Speci men Type: BLOOD SPECIMENOrdering Facility: [facility] Address: [address] [place] [address] Performed By: #### 5 7021-8 ####[facility]ORATORYCLIA [id number] [address] [place] Neutrophils/100 WBC (Bld) 58.1 % Normal [facility] Comment on above: Order Comment: Speci men Type: BLOOD SPECIMENOrdering Facility: [facility] Address: [address] [place] [address] Performed By: #### 5 7021-8 ####[facility]ORYCLIA [id number] [address] [place] Nucleated RBC (Bld) [#/Vol] 0.04 10*3/uL High <0.01 [facility] Comment on above: Order Comment: Speci men Type: BLOOD SPECIMENOrdering Facility: [facility] Address: [address] [place] [address] Performed By: #### 5 7021-8 ####[facility] [facility]ORATORYCLIA [id number] [address] [place] [facility] Nucleated RBC/100 WBC (Bld) [Ratio] 0.3 /100 WBC Normal [facility] Comment on above: Order Comment: Speci men Type: BLOOD SPECIMENOrdering Facility: [facility] Address: [address] [place] [address] Performed By: #### 5 7021-8 ####[facility]ATORYCLIA [id number] [address] [place] Platelet mean volume (Bld) [Entitic vol] 9.3 fL Normal 9.0-12.7 [facility] Comment on above: Order Comment: Speci men Type: BLOOD SPECIMENOrdering Facility: [facility] Address: [address] [place] [address] Performed By: #### 5 7021-8 ####[facility] [facility]ORATORYCLIA [id number] [address] [place] Platelets (Bld) [#/Vol] 420 10*3/uL High 150-400 [facility] Comment on above: Order Comment: Speci men Type: BLOOD SPECIMENOrdering Facility: [facility] Address: [place] [id number] Performed By: #### 5 7021-8 ####[facility] [facility]ORATORYCLIA [id number] [place] [address] [place] RBC (Bld) [#/Vol] 3.99 10*6/uL Low 4.20-6.00 [facility] Comment on above: Order Comment: Speci men Type: BLOOD SPECIMENOrdering Facility: [facility] Address: [place] [address] Performed By: #### 5 7021-8 ####[facility] [facility]ORATORYCLIA [id number] [address] STATES OF [facility] WBC (Bld) [#/Vol] 12.18 10*3/uL High 3.70-11.00 [facility] Comment on above: Order Comment: Speci men Type: BLOOD SPECIMENOrdering Facility: [facility] Address: [place] [address] Performed By: #### 5 7021-8 ####[facility] [facility]ATORYCLIA [id number] [address] [place] CNDSon 06-13-2023 CNDS Normal [facility] CONSULT PROGon 06-13-2023 CONSULT PROG Normal [facility] CONSULT PROG Normal [facility] CONSULT PROG Normal [facility] NURSING PROGon 06-13-2023 NURSING PROG Normal [facility] Vancomycin random [Mass/Vol] on 06-13-2023 Vancomycin [Mass/Vol] 7.2 ug/mL Low 10.0-20.0 [facility] Comment on above: Order Comment: Speci men Type: BLOOD SPECIMENOrdering Facility: [facility] Address: [place] [address] Result Comment: Refe rence ranges and high/low indicator flags are provided as general guidelines only. The treating physician must determine appropriate target levels/dosing based on the specific clinical situation. Performed By: #### 4 091-5 ####[facility] [facility]ATORYCLIA [id number] [address] [place] ALLIED HEALTHon 06-12-2023 ALLIED HEALTH Normal [facility] ANES POSTPROC EVALon 023 ANES POSTPROC EVAL Normal [facility] ANES POSTPROC EVAL Normal [facility] ANES PRE-OPon 06-12-2023 ANES PRE-OP Normal [facility] BRIEF OP NOTon 06-12-2023 BRIEF OP NOT Normal [facility] Basic metabolic 2000 panelon 06-12-2023 Anion gap [Moles/Vol] 12 mmol/L Normal 9-18 [facility] Comment on above: Order Comment: Speci men Type: BLOOD SPECIMENOrdering Facility: [facility] Address: [address] [place] [address] Performed By: #### 2 4321-2 ####[facility] [facility]ORATORYCLIA [id number] [place] [address] [place] Calcium [Mass/Vol] 8.9 mg/dL Normal 8.5-10.2 [facility] Comment on above: Order Comment: Speci men Type: BLOOD SPECIMENOrdering Facility: [facility] Address: [address] [place] [address] Performed By: #### 2 4321-2 ####[facility] [facility]ORATORYCLIA [id number] [place] [address] [place] Chloride [Moles/Vol] 104 mmol/L Normal 97-105 [facility] Comment on above: Order Comment: Speci men Type: BLOOD SPECIMENOrdering Facility: [facility] Address: [address] [place] [address] Performed By: #### 2 4321-2 ####[facility] [facility]ORATORYCLIA [id number] [place] [address] [place] CO2 [Moles/Vol] 24 mmol/L Normal 22-30 [facility] Comment on above: Order Comment: Speci men Type: BLOOD SPECIMENOrdering Facility: [facility] Address: [address] [place] [address] Performed By: #### 2 4321-2 ####[facility] [facility]ORATORYCLIA [id number] [address] [place] Creatinine [Mass/Vol] 0.99 mg/dL Normal 0.73-1.22 [facility] Comment on above: Order Comment: Kartik blood Type: BLOOD SPECIMENOrdering Facility: [facility] Address: [address] [place] [address] Performed By: #### 2 4321-2 ####[facility] SYSTEMIA [id number] [place] [id number] [facility] Creatinine and Glomerular filtration rate.predicted panel (S/P/Bld) 89 mL/min/1.73m??? Normal >=60 [facility] Comment on above: Order Comment: Kartik blood Type: BLOOD SPECIMENOrdering Facility: [facility] Address: [address] [place] [address] Result Comment: Mariaa mated Glomerular Filtration Rate [...] actual GFR. Performed By: #### 2 4321-2 ####[facility] [id number] [address] [place] Glucose [Mass/Vol] 116 mg/dL High 74-99 [facility] Comment on above: Order Comment: Kartik blood Type: BLOOD SPECIMENOrdering Facility: [facility] Address: [address] [place] [address] Result Comment: The [place] Diabetes [employer] (ADA) provides guidance for cutoff [...] Standards of Medical Care in Diabetes 2016, [place] Diabetes [employer]. Diabetes Care. 2016.39(Suppl 1). Performed By: #### 2 4321-2 ####[facility] [facility]ATORYCLIA [id number] [address] Potassium [Moles/Vol] 3.8 mmol/L Normal 3.7-5.1 [facility] Comment on above: Order Comment: Speci men Type: BLOOD SPECIMENOrdering Facility: [facility] Address: [address] [place] [address] Performed By: #### 2 4321-2 ####[facility] [facility]ORATORYCLIA [id number] [address] Sodium [Moles/Vol] 140 mmol/L Normal 136-144 [facility] Comment on above: Order Comment: Speci men Type: BLOOD SPECIMENOrdering Facility: [facility] Address: [address] [place] [address] Performed By: #### 2 4321-2 ####[facility] [facility]ATORYCLIA [id number] [address] STATES [facility] Urea nitrogen [Mass/Vol] 24 mg/dL Normal 9-24 [facility] Comment on above: Order Comment: Speci men Type: BLOOD SPECIMENOrdering Facility: [facility] Address: [address] [place] [address] Performed By: #### 2 4321-2 ####[facility] [facility]ATORYCLIA [id number] [address] CBC panel Auto (Bld)on 06-12 Erythrocyte distribution width (RBC) [Ratio] 14.4 % Normal 11.5-15.0 [facility] Comment on above: Order Comment: Speci men Type: BLOOD SPECIMENOrdering Facility: [facility] Address: [address] [place] [address] Performed By: #### 5 8410-2 ####[facility] [facility]ATORYCLIA [id number] [address] Hematocrit (Bld) [Volume fraction] 38.4 % Low 39.0-51.0 [facility] Comment on above: Order Comment: Speci men Type: BLOOD SPECIMENOrdering Facility: [facility] Address: [address] [place] [address] Performed By: #### 5 8410-2 ####[facility] [facility]ORYCLIA [id number] [address] Hemoglobin (Bld) [Mass/Vol] 12.8 g/dL Low 13.0-17.0 [facility] Comment on above: Order Comment: Speci men Type: BLOOD SPECIMENOrdering Facility: [facility] Address: [address] [place] [address] Performed By: #### 5 8410-2 ####[facility] [facility]ATORYCLIA [id number] [address] STATES OF [facility] MCH (RBC) [Entitic mass] 33.0 pg Normal 26.0-34.0 [facility] Comment on above: Order Comment: Speci men Type: BLOOD SPECIMENOrdering Facility: [facility] Address: [address] [place] [address] Performed By: #### 5 8410-2 ####[facility] [facility]ATORYCLIA [id number] [address] [place] [facility] MCHC (RBC) [Mass/Vol] 33.3 g/dL Normal 30.5-36.0 [facility] Comment on above: Order Comment: Speci men Type: BLOOD SPECIMENOrdering Facility: [facility] Address: [address] [place] [address] Performed By: #### 5 8410-2 ####[facility] [facility]ATORYCLIA [id number] [address] MCV (RBC) [Entitic vol] 99.0 fL Normal 80.0-100.0 [facility] Comment on above: Order Comment: Speci men Type: BLOOD SPECIMENOrdering Facility: [facility] Address: [address] [place] [address] Performed By: #### 5 8410-2 ####[facility] [place] [place] [facility]ATORYCLIA [id number] [place] [address] [place] Nucleated RBC (Bld) [#/Vol] 0.02 10*3/uL High <0.01 [facility] Comment on above: Order Comment: Speci men Type: BLOOD SPECIMENOrdering Facility: [facility] Address: [address] [place] [address] Performed By: #### 5 8410-2 ####[facility] [place] [place] [facility]ORYCLIA [id number] [address] [place] Platelet mean volume (Bld) [Entitic vol] 9.7 fL Normal 9.0-12.7 [facility] Comment on above: Order Comment: Speci men Type: BLOOD SPECIMENOrdering Facility: [facility] Address: [address] [place] [address] Performed By: #### 5 8410-2 ####[facility] [place] [place] [facility]ORYCLIA [id number] [address] [place] Platelets (Bld) [#/Vol] 415 10*3/uL High 150-400 [facility] Comment on above: Order Comment: Speci men Type: BLOOD SPECIMENOrdering Facility: [facility] Address: [address] [place] [address] Performed By: #### 5 8410-2 ####[facility] [place] [place] [facility]ATORYCLIA [id number] [place] [address] [place] RBC (Bld) [#/Vol] 3.88 10*6/uL Low 4.20-6.00 [facility] Comment on above: Order Comment: Speci men Type: BLOOD SPECIMENOrdering Facility: [facility] Address: [address] [place] [address] Performed By: #### 5 8410-2 ####[facility] [place] [place] [facility]ORYCLIA [id number] [address] [place] WBC (Bld) [#/Vol] 26.55 10*3/uL High 3.70-11.00 [facility] Comment on above: Order Comment: Speci men Type: BLOOD SPECIMENOrdering Facility: [facility] Address: [address] [place] [address] Performed By: #### 5 8410-2 ####[facility] [place] [place] [facility]ORYCLIA [id number] [address] STATES OF [facility] NURSING PROGon 06-12-2023 NURSING PROG Normal [facility] NURSING PROG Normal [facility] OPERATIVE NOon 06-12-2023 OPERATIVE NO Normal [facility] ALLIED HEALTHon 06-11-2023 ALLIED HEALTH Normal [facility] Bacteria Bld Culton 06-11-20 Bacteria identified Cx Nom (Bld) CULTURE, BLOOD: No growth 5 days Normal [facility] Comment on above: Performed By: #### 6 00-7 ####[facility] [place] [place] [facility]ATORYCLIA [id number] [place] [address] [place] Basic metabolic 2000 panelon 06-11-2023 Anion gap [Moles/Vol] 9 mmol/L Normal 9-18 [facility] Comment on above: Order Comment: Speci men Type: BLOOD SPECIMENOrdering Facility: [facility] Address: [address] [place] [address] Performed By: #### 2 4321-2 ####[facility] [place] [facility]ORYCLIA [id number] [place] [address] [place] Calcium [Mass/Vol] 8.8 mg/dL Normal 8.5-10.2 [facility] Comment on above: Order Comment: Speci men Type: BLOOD SPECIMENOrdering Facility: [facility] Address: [address] [place] [address] Performed By: #### 2 4321-2 ####[facility] [place] [facility]ORYCLIA [id number] [place] [address] [place] Chloride [Moles/Vol] 105 mmol/L Normal 97-105 [facility] Comment on above: Order Comment: Speci men Type: BLOOD SPECIMENOrdering Facility: [facility] Address: [address] [place] [address] Performed By: #### 2 4321-2 ####[facility] [place] [facility]ORYCLIA [id number] [address] [place] CO2 [Moles/Vol] 28 mmol/L Normal 22-30 [facility] Comment on above: Order Comment: Speci men Type: BLOOD SPECIMENOrdering Facility: [facility] Address: [address] [place] [address] Performed By: #### 2 4321-2 ####[facility] [facility]ORYCLIA [id number] [address] [place] Creatinine [Mass/Vol] 0.99 mg/dL Normal 0.73-1.22 [facility] Comment on above: Order Comment: Speci men Type: BLOOD SPECIMENOrdering Facility: [facility] Address: [address] [place] [address] Performed By: #### 2 4321-2 ####[facility] [place] [facility]ORYCLIA [id number] [address] Creatinine and Glomerular filtration rate.predicted panel (S/P/Bld) 89 mL/min/1.73m??? Normal >=60 [facility] Comment on above: Order Comment: Speci men Type: BLOOD SPECIMENOrdering Facility: [facility] Address: [address] [place] [address] Result Comment: Mariaa mated Glomerular Filtration Rate [...] actual GFR. Performed By: #### 2 4321-2 ####[facility] [place] LABORATORYCLIA [id number] [address] STATES OF [facility] Glucose [Mass/Vol] 164 mg/dL High 74-99 [facility] Comment on above: Order Comment: Speci men Type: BLOOD SPECIMENOrdering Facility: [facility] Address: [address] [place] [address] Result Comment: The [employer] Diabetes Association (ADA) provides guidance for cutoff [...] Standards of Medical Care in Diabetes 2016, [employer] Diabetes Association. Diabetes Care. 2016.39(Suppl 1). Performed By: #### 2 4321-2 ####[facility] [place] LABORATORYCLIA [id number] [address] [place] Potassium [Moles/Vol] 4.3 mmol/L Normal 3.7-5.1 [facility] Comment on above: Order Comment: Speci men Type: BLOOD SPECIMENOrdering Facility: [facility] Address: [address] [place] [address] Performed By: #### 2 4321-2 ####[facility] [place] LABORATORYCLIA [id number] [place] [address] [place] Sodium [Moles/Vol] 142 mmol/L Normal 136-144 [facility] Comment on above: Order Comment: Speci men Type: BLOOD SPECIMENOrdering Facility: [facility] Address: [address] [place] [address] Performed By: #### 2 4321-2 ####[facility] [place] LABORATORYCLIA [id number] [address] [place] Urea nitrogen [Mass/Vol] 19 mg/dL Normal 9-24 [facility] Comment on above: Order Comment: Speci men Type: BLOOD SPECIMENOrdering Facility: [facility] Address: [address] [place] [address] Performed By: #### 2 4321-2 ####[facility] [place] LABORATORYCLIA [id number] [place] [address] [place] CBC W Auto Differential pane l (Bld)on 06-11-2023 Basophils (Bld) [#/Vol] 10*3/uL Normal <0.11 [facility] Comment on above: Order Comment: Speci men Type: BLOOD SPECIMENOrdering Facility: [facility] Address: [address] [place] [address] Performed By: #### 5 7021-8 ####[facility]ORATORYCLIA [id number] [address] [place] Basophils/100 WBC (Bld) 0.0 % Normal [facility] Comment on above: Order Comment: Speci men Type: BLOOD SPECIMENOrdering Facility: [facility] Address: [address] [place] [address] Performed By: #### 5 7021-8 ####[facility]ORATORYCLIA [id number] [address] Differential cell count method Nom (Bld) Auto Normal [facility] Comment on above: Order Comment: Speci men Type: BLOOD SPECIMENOrdering Facility: [facility] Address: [address] [place] [address] Performed By: #### 5 7021-8 ####[facility]ORATORYCLIA [id number] [place] [address] [place] Eosinophils (Bld) [#/Vol] 10*3/uL Normal <0.46 [facility] Comment on above: Order Comment: Speci men Type: BLOOD SPECIMENOrdering Facility: [facility] Address: [address] [place] [address] Performed By: #### 5 7021-8 ####[facility]ORATORYCLIA [id number] [address] [place] Eosinophils/100 WBC (Bld) 0.0 % Normal [facility] Comment on above: Order Comment: Speci men Type: BLOOD SPECIMENOrdering Facility: [facility] Address: [address] [place] [address] Performed By: #### 5 7021-8 ####[facility]ORATORYCLIA [id number] [address] [place] Erythrocyte distribution width (RBC) [Ratio] 13.7 % Normal 11.5-15.0 [facility] Comment on above: Order Comment: Speci men Type: BLOOD SPECIMENOrdering Facility: [facility] Address: [address] [place] [address] Performed By: #### 5 7021-8 ####[facility] [place] LABORATORYCLIA [id number] [address] STATES OF [facility] Hematocrit (Bld) [Volume fraction] 36.8 % Low 39.0-51.0 [facility] Comment on above: Order Comment: Speci men Type: BLOOD SPECIMENOrdering Facility: [facility] Address: [address] [place] [address] Performed By: #### 5 7021-8 ####[facility] [place] LABORATORYCLIA [id number] [address] [place] Hemoglobin (Bld) [Mass/Vol] 12.3 g/dL Low 13.0-17.0 [facility] Comment on above: Order Comment: Speci men Type: BLOOD SPECIMENOrdering Facility: [facility] Address: [address] [place] [address] Performed By: #### 5 7021-8 ####[facility] [place] LABORATORYCLIA [id number] [address] [place] Immature granulocytes (Bld) [#/Vol] 0.05 10*3/uL Normal <0.10 [facility] Comment on above: Order Comment: Speci men Type: BLOOD SPECIMENOrdering Facility: [facility] Address: [address] [place] [address] Performed By: #### 5 7021-8 ####[facility] [place] LABORATORYCLIA [id number] [address] Immature granulocytes/100 WBC (Bld) 0.3 % Normal [facility] Comment on above: Order Comment: Speci men Type: BLOOD SPECIMENOrdering Facility: [facility] Address: [address] [place] [address] Performed By: #### 5 7021-8 ####[facility] [place] LABORATORYCLIA [id number] [address] OF [facility] Lymphocytes (Bld) [#/Vol] 0.75 10*3/uL Low 1.00-4.00 [facility] Comment on above: Order Comment: Speci men Type: BLOOD SPECIMENOrdering Facility: [facility] Address: [address] [place] [address] Performed By: #### 5 7021-8 ####[facility] [place] LABORATORYCLIA [id number] [address] Lymphocytes/100 WBC (Bld) 5.2 % Normal [facility] Comment on above: Order Comment: Speci men Type: BLOOD SPECIMENOrdering Facility: [facility] Address: [address] [place] [address] Performed By: #### 5 7021-8 ####[facility] [place] LABORATORYCLIA [id number] [address] [place] MCH (RBC) [Entitic mass] 32.6 pg Normal 26.0-34.0 [facility] Comment on above: Order Comment: Speci men Type: BLOOD SPECIMENOrdering Facility: [facility] Address: [address] [place] [address] Performed By: #### 5 7021-8 ####[facility] [place] LABORATORYCLIA [id number] [address] [place] MCHC (RBC) [Mass/Vol] 33.4 g/dL Normal 30.5-36.0 [facility] Comment on above: Order Comment: Speci men Type: BLOOD SPECIMENOrdering Facility: [facility] Address: [address] [place] [address] Performed By: #### 5 7021-8 ####[facility] [place] LABORATORYCLIA [id number] [address] STATES [facility] MCV (RBC) [Entitic vol] 97.6 fL Normal 80.0-100.0 [facility] Comment on above: Order Comment: Speci men Type: BLOOD SPECIMENOrdering Facility: [facility] Address: [address] [place] [address] Performed By: #### 5 7021-8 ####[facility]ORATORYCLIA [id number] [place] [address] [place] Monocytes (Bld) [#/Vol] 0.67 10*3/uL Normal <0.87 [facility] Comment on above: Order Comment: Speci men Type: BLOOD SPECIMENOrdering Facility: [facility] Address: [address] [place] [address] Performed By: #### 5 7021-8 ####[facility]ORATORYCLIA [id number] [address] [place] Monocytes/100 WBC (Bld) 4.7 % Normal [facility] Comment on above: Order Comment: Speci men Type: BLOOD SPECIMENOrdering Facility: [facility] Address: [address] [place] [address] Performed By: #### 5 7021-8 ####[facility]ORATORYCLIA [id number] [address] [place] Neutrophils (Bld) [#/Vol] 12.88 10*3/uL High 1.45-7.50 [facility] Comment on above: Order Comment: Speci men Type: BLOOD SPECIMENOrdering Facility: [facility] Address: [address] [place] [address] Performed By: #### 5 7021-8 ####[facility] [place] LABORATORYCLIA [id number] [address] [place] Neutrophils/100 WBC (Bld) 89.8 % Normal [facility] Comment on above: Order Comment: Speci men Type: BLOOD SPECIMENOrdering Facility: [facility] Address: [address] [place] [address] Performed By: #### 5 7021-8 ####[facility] LABORATORYCLIA [id number] [place] [address] [place] Nucleated RBC (Bld) [#/Vol] 10*3/uL Normal <0.01 [facility] Comment on above: Order Comment: Speci men Type: BLOOD SPECIMENOrdering Facility: [facility] Address: [address] [place] [address] Performed By: #### 5 7021-8 ####[facility] [place] LABORATORYCLIA [id number] [address] [place] Nucleated RBC/100 WBC (Bld) [Ratio] 0.0 /100 WBC Normal [facility] Comment on above: Order Comment: Speci men Type: BLOOD SPECIMENOrdering Facility: [facility] Address: [address] [place] [address] Performed By: #### 5 7021-8 ####[facility] [place] LABORATORYCLIA [id number] [place] [address] [place] Platelet mean volume (Bld) [Entitic vol] 9.4 fL Normal 9.0-12.7 [facility] Comment on above: Order Comment: Speci men Type: BLOOD SPECIMENOrdering Facility: [facility] Address: [address] [place] [address] Performed By: #### 5 7021-8 ####[facility] [place] LABORATORYCLIA [id number] [address] [place] Platelets (Bld) [#/Vol] 414 10*3/uL High 150-400 [facility] Comment on above: Order Comment: Speci men Type: BLOOD SPECIMENOrdering Facility: [facility] Address: [address] [place] [address] Performed By: #### 5 7021-8 ####[facility] [place] LABORATORYCLIA [id number] [place] [address] [place] RBC (Bld) [#/Vol] 3.77 10*6/uL Low 4.20-6.00 [facility] Comment on above: Order Comment: Speci men Type: BLOOD SPECIMENOrdering Facility: [facility] Address: [address] [place] [address] Performed By: #### 5 7021-8 ####[facility] [place] LABORATORYCLIA [id number] [place] [address] [place] WBC (Bld) [#/Vol] 14.35 10*3/uL High 3.70-11.00 [facility] Comment on above: Order Comment: Speci men Type: BLOOD SPECIMENOrdering Facility: [facility] Address: [address] [place] [address] Performed By: #### 5 7021-8 ####[facility] [place] LABORATORYCLIA [id number] [address] [place] CONSULTon 06-11-2023 CONSULT Normal [facility] CONSULT Normal [facility] CONSULT Normal [facility] CONSULT PROGon 06-11-2023 CONSULT PROG Normal [facility] CONSULT PROG Normal [facility] Gas and Carbon monoxide pane l (BldV)on 06-11-2023 Base excess Calc (BldV) [Moles/Vol] 2 mmol/L Normal 0-2 [facility] Comment on above: Order Comment: Speci men Type: VENOUS BLOOD SPECIMENOrdering Facility: [facility] Address: [address] [place] [address] Performed By: #### 2 4344-4 ####[facility] [place] LABORATORYCLIA [id number] [address] [place] Body temperature 97.7 [degF] Normal [facility] Comment on above: Order Comment: Speci men Type: VENOUS BLOOD SPECIMENOrdering Facility: [facility] Address: [address] [place] [address] Performed By: #### 2 4344-4 ####[facility] [place] LABORATORYCLIA [id number] [place] [address] [place] Calcium.ionized (BldV) [Mass/Vol] 1.16 mmol/L Normal 1.08-1.30 [facility] Comment on above: Order Comment: Speci men Type: VENOUS BLOOD SPECIMENOrdering Facility: [facility] Address: [address] [place] [address] Performed By: #### 2 4344-4 ####[facility] [place] LABORATORYCLIA [id number] [address] [place] Calcium.ionized adjusted to pH 7.4 (BldA) [Moles/Vol] 1.13 mmol/L Normal 1.08-1.30 [facility] Comment on above: Order Comment: Speci men Type: VENOUS BLOOD SPECIMENOrdering Facility: [facility] Address: [address] [place] [address] Performed By: #### 2 4344-4 ####[facility] [place] LABORATORYCLIA [id number] [address] [place] Carboxyhemoglobin (BldV) [Mass fraction] 1.6 % Normal 0.0-2.0 [facility] Comment on above: Order Comment: Speci men Type: VENOUS BLOOD SPECIMENOrdering Facility: [facility] Address: [address] [place] [address] Result Comment: Carb oxyhemoglobin Reference Range for Smokers: 2.0-8.0% Performed By: #### 2 4344-4 ####[facility] [place] LABORATORYCLIA [id number] [place] [address] [place] Chloride [Moles/Vol] 108 mmol/L Normal 102-109 [facility] Comment on above: Order Comment: Speci men Type: VENOUS BLOOD SPECIMENOrdering Facility: [facility] Address: [address] [place] [address] Performed By: #### 2 4344-4 ####[facility] [place] LABORATORYCLIA [id number] [address] [place] CO2 (BldV) [Partial pressure] 52 mm[Hg] Normal 42-55 [facility] Comment on above: Order Comment: Speci men Type: VENOUS BLOOD SPECIMENOrdering Facility: [facility] Address: [address] [place] [address] Performed By: #### 2 4344-4 ####[facility] [place] LABORATORYCLIA [id number] [address] [place] CO2 adjusted to patient's actual temperature (BldV) [Partial pressure] 51 mmHg Normal 42-55 [facility] Comment on above: Order Comment: Speci men Type: VENOUS BLOOD SPECIMENOrdering Facility: [facility] Address: [address] [place] [address] Performed By: #### 2 4344-4 ####[facility]ORATORYCLIA [id number] [place] [id number] [place] Glucose [Mass/Vol] 155 mg/dL High 60-105 [facility] Comment on above: Order Comment: Speci men Type: VENOUS BLOOD SPECIMENOrdering Facility: [facility] Address: [address] [place] [address] Performed By: #### 2 4344-4 ####[facility] [place] LABORATORYCLIA [id number] [place] [address] [place] HCO3 (Bld) [Moles/Vol] 28 mmol/L Normal 24-28 [facility] Comment on above: Order Comment: Speci men Type: VENOUS BLOOD SPECIMENOrdering Facility: [facility] Address: [address] [place] [address] Performed By: #### 2 4344-4 ####[facility] [place] LABORATORYCLIA [id number] [place] [address] [place] Hematocrit (Bld) [Volume fraction] 38.0 % Low 39.0-51.0 [facility] Comment on above: Order Comment: Speci men Type: VENOUS BLOOD SPECIMENOrdering Facility: [facility] Address: [address] [place] [address] Performed By: #### 2 4344-4 ####[facility] [place] LABORATORYCLIA [id number] [place] [id number] [place] Hemoglobin (Bld) [Mass/Vol] 12.4 g/dL Low 13.0-17.0 [facility] Comment on above: Order Comment: Speci men Type: VENOUS BLOOD SPECIMENOrdering Facility: [facility] Address: [address] [place] [address] Performed By: #### 2 4344-4 ####[facility] [place] LABORATORYCLIA [id number] [place] [address] [place] Lactate [Moles/Vol] 2.5 mmol/L High 0.5-2.2 [facility] Comment on above: Order Comment: Speci men Type: VENOUS BLOOD SPECIMENOrdering Facility: [facility] Address: [address] [place] [address] Performed By: #### 2 4344-4 ####[facility]ORATORYCLIA [id number] [address] OF [facility] Methemoglobin (Bld) [Mass fraction] 1.0 % Normal 0.0-1.5 [facility] Comment on above: Order Comment: Speci men Type: VENOUS BLOOD SPECIMENOrdering Facility: [facility] Address: [address] [place] [address] Performed By: #### 2 4344-4 ####[facility]ORATORYCLIA [id number] [address] O2 THERAPY RA=Room Air Normal [facility] Comment on above: Order Comment: Speci men Type: VENOUS BLOOD SPECIMENOrdering Facility: [facility] Address: [address] [place] [address] Performed By: #### 2 4344-4 ####[facility]ORATORYCLIA [id number] [address] [place] Oxygen (BldV) [Partial pressure] 82 mm[Hg] High 35-45 [facility] Comment on above: Order Comment: Speci men Type: VENOUS BLOOD SPECIMENOrdering Facility: [facility] Address: [address] [place] [address] Performed By: #### 2 4344-4 ####[facility] [place] LABORATORYCLIA [id number] [address] Oxygen adjusted to patient's actual temperature (BldV) [Partial pressure] 79 mmHg High 35-45 [facility] Comment on above: Order Comment: Speci men Type: VENOUS BLOOD SPECIMENOrdering Facility: [facility] Address: [address] [place] [address] Performed By: #### 2 4344-4 ####[facility]ORATORYCLIA [id number] [address] [place] Oxygen saturation in Venous blood 96 % High 60-85 [facility] Comment on above: Order Comment: Speci men Type: VENOUS BLOOD SPECIMENOrdering Facility: [facility] Address: [address] [place] [address] Performed By: #### 2 4344-4 ####[facility] [place] LABORATORYCLIA [id number] [address] OF [facility] Oxyhemoglobin (BldV) [Mass fraction] 93 % High 60-85 [facility] Comment on above: Order Comment: Speci men Type: VENOUS BLOOD SPECIMENOrdering Facility: [facility] Address: [address] [place] [address] Performed By: #### 2 4344-4 ####[facility] [place] LABORATORYCLIA [id number] [address] [place] pH (BldV) 7.35 [pH] Normal 7.32-7.42 [facility] Comment on above: Order Comment: Speci men Type: VENOUS BLOOD SPECIMENOrdering Facility: [facility] Address: [address] [place] [address] Performed By: #### 2 4344-4 ####[facility] [place] LABORATORYCLIA [id number] [address] STATES [facility] pH adjusted to patient's actual temperature (BldV) 7.36 Normal 7.32-7.42 [facility] Comment on above: Order Comment: Speci men Type: VENOUS BLOOD SPECIMENOrdering Facility: [facility] Address: [address] [place] [address] Performed By: #### 2 4344-4 ####[facility]ORATORYCLIA [id number] [address] [place] Potassium [Moles/Vol] 4.0 mmol/L Normal 3.5-5.0 [facility] Comment on above: Order Comment: Speci men Type: VENOUS BLOOD SPECIMENOrdering Facility: [facility] Address: [address] [place] [address] Performed By: #### 2 4344-4 ####[facility]ORATORYCLIA [id number] [address] [place] Sodium [Moles/Vol] 139 mmol/L Normal 136-144 [facility] Comment on above: Order Comment: Speci men Type: VENOUS BLOOD SPECIMENOrdering Facility: [facility] Address: [address] [place] [address] Performed By: #### 2 4344-4 ####[facility] [place] LABORATORYCLIA [id number] [place] [address] [place] Lactate (Bld) [Moles/Vol]on 06-11-2023 Lactate [Moles/Vol] 1.6 mmol/L Normal 0.5-2.2 [facility] Comment on above: Order Comment: Speci men Type: BLOOD SPECIMENOrdering Facility: [facility] Address: [address] [place] [address] Performed By: #### 3 2693-4 ####[facility] [place] LABORATORYCLIA [id number] [place] [address] [place] ANES PRE-OPon 06-10-2023 ANES PRE-OP Normal [facility] BRIEF OP NOTon 06-10-2023 BRIEF OP NOT Normal [facility] Basic metabolic 2000 panelon 06-10-2023 Anion gap [Moles/Vol] 8 mmol/L Low 9-18 [facility] Comment on above: Order Comment: Speci men Type: BLOOD SPECIMENOrdering Facility: [facility] Address: [address] [place] [address] Performed By: #### 2 4321-2 ####[facility] [place] LABORATORYCLIA [id number] [place] [address] [place] Calcium [Mass/Vol] 8.5 mg/dL Normal 8.5-10.2 [facility] Comment on above: Order Comment: Speci men Type: BLOOD SPECIMENOrdering Facility: [facility] Address: [address] [place] [address] Performed By: #### 2 4321-2 ####[facility] [place] LABORATORYCLIA [id number] [place] [address] [place] Chloride [Moles/Vol] 101 mmol/L Normal 97-105 [facility] Comment on above: Order Comment: Speci men Type: BLOOD SPECIMENOrdering Facility: [facility] Address: [address] [place] [address] Performed By: #### 2 4321-2 ####[facility] [place] LABORATORYCLIA [id number] [address] [place] CO2 [Moles/Vol] 30 mmol/L Normal 22-30 [facility] Comment on above: Order Comment: Speci men Type: BLOOD SPECIMENOrdering Facility: [facility] Address: [address] [place] [address] Performed By: #### 2 4321-2 ####[facility] [place] LABORATORYCLIA [id number] [address] STATES OF [facility] Creatinine [Mass/Vol] 0.93 mg/dL Normal 0.73-1.22 [facility] Comment on above: Order Comment: Speci men Type: BLOOD SPECIMENOrdering Facility: [facility] Address: [address] [place] [address] Performed By: #### 2 4321-2 ####[facility] [place] LABORATORYCLIA [id number] [address] Creatinine and Glomerular filtration rate.predicted panel (S/P/Bld) 96 mL/min/1.73m??? Normal >=60 [facility] Comment on above: Order Comment: Speci men Type: BLOOD SPECIMENOrdering Facility: [facility] Address: [address] [place] [address] Result Comment: Mariaa mated Glomerular Filtration Rate [...] actual GFR. Performed By: #### 2 4321-2 ####[facility] [place] LABORATORYCLIA [id number] [address] [place] Glucose [Mass/Vol] 121 mg/dL High 74-99 [facility] Comment on above: Order Comment: Speci men Type: BLOOD SPECIMENOrdering Facility: [facility] Address: [address] [place] [address] Result Comment: The [employer] Diabetes [employer] (ADA) provides guidance for cutoff [...] Standards of Medical Care in Diabetes 2016, [employer]. Diabetes Care. 2016.39(Suppl 1). Performed By: #### 2 4321-2 ####[facility] LABORATORYCLIA [id number] [place] [address] [place] Potassium [Moles/Vol] 3.7 mmol/L Normal 3.7-5.1 [facility] Comment on above: Order Comment: Speci [facility] Type: BLOOD SPECIMENOrdering Facility: [facility] Address: [address] [place] [address] Performed By: #### 2 4321-2 ####[facility] LABORATORYCLIA [id number] [place] [address] [place] Sodium [Moles/Vol] 139 mmol/L Normal 136-144 [facility] Comment on above: Order Comment: Speci men Type: BLOOD SPECIMENOrdering Facility: [facility] Address: [address] [place] [address] Performed By: #### 2 4321-2 ####[facility]ysJE[facility] LABORATORYCLIA [id number] [place] [address] [place] Urea nitrogen [Mass/Vol] 12 mg/dL Normal 9-24 [facility] Comment on above: Order Comment: Speci men Type: BLOOD SPECIMENOrdering Facility: [facility] Address: [address] [place] [address] Performed By: #### 2 1-2 ####[facility] LABORATORYCLIA [id number] [place] [address] [place] CBC W Auto Differential pane l (Bld)on 06-10-2023 Basophils (Bld) [#/Vol] 0.04 10*3/uL Normal <0.11 [facility] Comment on above: Order Comment: Speci men Type: BLOOD SPECIMENOrdering Facility: [facility] Address: [address] [place] [address] Performed By: #### 5 7021-8 ####[facility] LABORATORYCLIA [id number] [address] [place] Basophils/100 WBC (Bld) 0.5 % Normal [facility] Comment on above: Order Comment: Speci men Type: BLOOD SPECIMENOrdering Facility: [facility] Address: [address] [place] [address] Performed By: #### 5 7021-8 ####[facility] [place] [facility]ORATORYCLIA [id number] [address] Differential cell count method Nom (Bld) Auto Normal [facility] Comment on above: Order Comment: Speci men Type: BLOOD SPECIMENOrdering Facility: [facility] Address: [address] [place] [address] Performed By: #### 5 7021-8 ####[facility]ORATORYCLIA [id number] [address] [place] Eosinophils (Bld) [#/Vol] 0.64 10*3/uL High <0.46 [facility] Comment on above: Order Comment: Speci men Type: BLOOD SPECIMENOrdering Facility: [facility] Address: [address] [place] [address] Performed By: #### 5 7021-8 ####[facility]ORATORYCLIA [id number] [address] Eosinophils/100 WBC (Bld) 7.4 % Normal [facility] Comment on above: Order Comment: Speci men Type: BLOOD SPECIMENOrdering Facility: [facility] Address: [address] [place], [place] [address] Performed By: #### 5 7021-8 ####[facility] [place] LABORATORYCLIA [id number] [address] [place] Erythrocyte distribution width (RBC) [Ratio] 13.9 % Normal 11.5-15.0 [facility] Comment on above: Order Comment: Speci men Type: BLOOD SPECIMENOrdering Facility: [facility] Address: [address] [place] [address] Performed By: #### 5 7021-8 ####[facility] [place] LABORATORYCLIA [id number] [address] [place] Hematocrit (Bld) [Volume fraction] 36.8 % Low 39.0-51.0 [facility] Comment on above: Order Comment: Speci men Type: BLOOD SPECIMENOrdering Facility: [facility] Address: [address] [place] [address] Performed By: #### 5 7021-8 ####[facility] LABORATORYCLIA [id number] [address] [place] Hemoglobin (Bld) [Mass/Vol] 12.3 g/dL Low 13.0-17.0 [facility] Comment on above: Order Comment: Speci men Type: BLOOD SPECIMENOrdering Facility: [facility] Address: [address] [place] [address] Performed By: #### 5 7021-8 ####[facility] [place] LABORATORYCLIA [id number] [address] [place] Immature granulocytes (Bld) [#/Vol] 0.03 10*3/uL Normal <0.10 [facility] Comment on above: Order Comment: Speci men Type: BLOOD SPECIMENOrdering Facility: [facility] Address: [address] [place] [address] Performed By: #### 5 7021-8 ####[facility] LABORATORYCLIA [id number] [address] [place] Immature granulocytes/100 WBC (Bld) 0.3 % Normal [facility] Comment on above: Order Comment: Speci men Type: BLOOD SPECIMENOrdering Facility: [facility] Address: [address] [place] [address] Performed By: #### 5 7021-8 ####[facility] LABORATORYCLIA [id number] [address] Lymphocytes (Bld) [#/Vol] 2.57 10*3/uL Normal 1.00-4.00 [facility] Comment on above: Order Comment: Speci men Type: BLOOD SPECIMENOrdering Facility: [facility] Address: [address] [place] [address] Performed By: #### 5 7021-8 ####[facility] LABORATORYCLIA [id number] [address] Lymphocytes/100 WBC (Bld) 29.8 % Normal [facility] Comment on above: Order Comment: Speci men Type: BLOOD SPECIMENOrdering Facility: [facility] Address: [address] [place] [address] Performed By: #### 5 7021-8 ####[facility] LABORATORYCLIA [id number] [address] [place] MCH (RBC) [Entitic mass] 32.7 pg Normal 26.0-34.0 [facility] Comment on above: Order Comment: Speci men Type: BLOOD SPECIMENOrdering Facility: [facility] Address: [address] [place] [address] Performed By: #### 5 7021-8 ####[facility] LABORATORYCLIA [id number] [address] [place] MCHC (RBC) [Mass/Vol] 33.4 g/dL Normal 30.5-36.0 [facility] Comment on above: Order Comment: Speci men Type: BLOOD SPECIMENOrdering Facility: [facility] Address: [address] [place] [address] Performed By: #### 5 7021-8 ####[facility] LABORATORYCLIA [id number] [address] STATES [facility] MCV (RBC) [Entitic vol] 97.9 fL Normal 80.0-100.0 [facility] Comment on above: Order Comment: Speci men Type: BLOOD SPECIMENOrdering Facility: [facility] Address: [address] [place] [address] Performed By: #### 5 7021-8 ####[facility]ORATORYCLIA [id number] [place] [address] [place] Monocytes (Bld) [#/Vol] 0.98 10*3/uL High <0.87 [facility] Comment on above: Order Comment: Speci men Type: BLOOD SPECIMENOrdering Facility: [facility] Address: [address] [place] [address] Performed By: #### 5 7021-8 ####[facility] LABORATORYCLIA [id number] [address] [place] Monocytes/100 WBC (Bld) 11.4 % Normal [facility] Comment on above: Order Comment: Speci men Type: BLOOD SPECIMENOrdering Facility: [facility] Address: [address] [place] [address] Performed By: #### 5 7021-8 ####[facility] LABORATORYCLIA [id number] [address] [place] Neutrophils (Bld) [#/Vol] 4.35 10*3/uL Normal 1.45-7.50 [facility] Comment on above: Order Comment: Speci men Type: BLOOD SPECIMENOrdering Facility: [facility] Address: [address] [place] [address] Performed By: #### 5 7021-8 ####[facility]ORATORYCLIA [id number] [address] [place] Neutrophils/100 WBC (Bld) 50.6 % Normal [facility] Comment on above: Order Comment: Speci men Type: BLOOD SPECIMENOrdering Facility: [facility] Address: [address] [place] [address] Performed By: #### 5 7021-8 ####[facility]ATORYCLIA [id number] [address] [place] Nucleated RBC (Bld) [#/Vol] 0.02 10*3/uL High <0.01 [facility] Comment on above: Order Comment: Speci men Type: BLOOD SPECIMENOrdering Facility: [facility] Address: [address] [place] [address] Performed By: #### 5 7021-8 ####[facility] LABORATORYCLIA [id number] [place] [address] [place] Nucleated RBC/100 WBC (Bld) [Ratio] 0.2 /100 WBC Normal [facility] Comment on above: Order Comment: Speci men Type: BLOOD SPECIMENOrdering Facility: [facility] Address: [address] [place] [address] Performed By: #### 5 7021-8 ####[facility] LABORATORYCLIA [id number] [place] [address] [place] Platelet mean volume (Bld) [Entitic vol] 9.2 fL Normal 9.0-12.7 [facility] Comment on above: Order Comment: Speci men Type: BLOOD SPECIMENOrdering Facility: [facility] Address: [address] [place] [address] Performed By: #### 5 7021-8 ####[facility] LABORATORYCLIA [id number] [place] [address] [place] Platelets (Bld) [#/Vol] 387 10*3/uL Normal 150-400 [facility] Comment on above: Order Comment: Speci men Type: BLOOD SPECIMENOrdering Facility: [facility] Address: [address] [place] [address] Performed By: #### 5 7021-8 ####[facility] LABORATORYCLIA [id number] [place] [address] [place] RBC (Bld) [#/Vol] 3.76 10*6/uL Low 4.20-6.00 [facility] Comment on above: Order Comment: Speci men Type: BLOOD SPECIMENOrdering Facility: [facility] Address: [address] [place] [address] Performed By: #### 5 7021-8 ####[facility] LABORATORYCLIA [id number] [place] [address] [place] WBC (Bld) [#/Vol] 8.61 10*3/uL Normal 3.70-11.00 [facility] Comment on above: Order Comment: Kartik blood Type: BLOOD SPECIMENOrdering Facility: [facility] Address: [place] [address] Performed By: #### 5 7021-8 ####[facility] LABORATORYCLIA [id number] [place] [address] [facility] CONSULT PROGon 06-10-2023 CONSULT PROG Normal [facility] NURSING PROGon 06-10-2023 NURSING PROG Normal [facility] OPERATIVE NOon 06-10-2023 OPERATIVE NO Normal [facility] PT panel Coag (PPP)on 2022 INR Coag (PPP) [Relative time] 1.0 {INR} Normal 0.9-1.3 [facility] Comment on above: Order Comment: Kartik blood Type: BLOOD SPECIMENOrdering Facility: [facility] Address: [place] [address] Result Comment: Renee min K Antagonist (VKA) Therapeutic Range: INR 2 to 3 (Target INR of 2.5)Note: For patients treated with VKA drugs, such as warfarin, the [employer] 2012 Guideline recommends [...] al. Chest 2012, 141:7S-47SNishimura RA, et al. [facility] 2017, 70: 252-289 Performed By: #### 3 4528-0 ####[facility] [facility]ORATORYCLIA [id number] [address] [place] PT Coag (PPP) [Time] 10.3 s Normal 9.7-13.0 [facility] Comment on above: Order Comment: Speci men Type: BLOOD SPECIMENOrdering Facility: [facility] Address: [address] [place] [address] Performed By: #### 3 4528-0 ####[facility] LABORATORYCLIA [id number] [address] [place] CASE MGT INIT ASSESon 2022 CASE MGT INIT ASSES Normal [facility] CBC W Auto Differential pane l (Bld)on 06-09-2023 Basophils (Bld) [#/Vol] 0.04 10*3/uL Normal <0.11 [facility] Comment on above: Order Comment: Speci men Type: BLOOD SPECIMENOrdering Facility: [facility] Address: [address] [place] [address] Performed By: #### 5 7021-8 ####[facility] LABORATORYCLIA [id number] [address] Basophils/100 WBC (Bld) 0.5 % Normal [facility] Comment on above: Order Comment: Speci men Type: BLOOD SPECIMENOrdering Facility: [facility] Address: [address] [place] [address] Performed By: #### 5 7021-8 ####[facility] LABORATORYCLIA [id number] [address] [place] Differential cell count method Nom (Bld) Auto Normal [facility] Comment on above: Order Comment: Speci men Type: BLOOD SPECIMENOrdering Facility: [facility] Address: [address] [place] [address] Performed By: #### 5 7021-8 ####[facility] LABORATORYCLIA [id number] [place] [address] [place] Eosinophils (Bld) [#/Vol] 0.72 10*3/uL High <0.46 [facility] Comment on above: Order Comment: Speci men Type: BLOOD SPECIMENOrdering Facility: [facility] Address: [address] [place] [address] Performed By: #### 5 7021-8 ####[facility] [facility]ORATORYCLIA [id number] [address] Eosinophils/100 WBC (Bld) 8.2 % Normal [facility] Comment on above: Order Comment: Speci men Type: BLOOD SPECIMENOrdering Facility: [facility] Address: [address] [place] [address] Performed By: #### 5 7021-8 ####[facility] LABORATORYCLIA [id number] [address] Erythrocyte distribution width (RBC) [Ratio] 14.1 % Normal 11.5-15.0 [facility] Comment on above: Order Comment: Speci men Type: BLOOD SPECIMENOrdering Facility: [facility] Address: [address] [place] [address] Performed By: #### 5 7021-8 ####[facility] [facility]ORATORYCLIA [id number] [address] Hematocrit (Bld) [Volume fraction] 39.3 % Normal 39.0-51.0 [facility] Comment on above: Order Comment: Speci men Type: BLOOD SPECIMENOrdering Facility: [facility] Address: [address] [place] [address] Performed By: #### 5 7021-8 ####[facility] LABORATORYCLIA [id number] [address] [place] Hemoglobin (Bld) [Mass/Vol] 12.9 g/dL Low 13.0-17.0 [facility] Comment on above: Order Comment: Speci men Type: BLOOD SPECIMENOrdering Facility: [facility] Address: [address] [place] [address] Performed By: #### 5 7021-8 ####[facility] LABORATORYCLIA [id number] [address] Immature granulocytes (Bld) [#/Vol] 0.04 10*3/uL Normal <0.10 [facility] Comment on above: Order Comment: Speci men Type: BLOOD SPECIMENOrdering Facility: [facility] Address: [address] [place] [address] Performed By: #### 5 7021-8 ####[facility] LABORATORYCLIA [id number] [address] STATES [facility] Immature granulocytes/100 WBC (Bld) 0.5 % Normal [facility] Comment on above: Order Comment: Speci men Type: BLOOD SPECIMENOrdering Facility: [facility] Address: [address] [place] [address] Performed By: #### 5 7021-8 ####[facility] [facility]ATORYCLIA [id number] [address] [place] Lymphocytes (Bld) [#/Vol] 2.82 10*3/uL Normal 1.00-4.00 [facility] Comment on above: Order Comment: Speci men Type: BLOOD SPECIMENOrdering Facility: [facility] Address: [address] [place] [address] Performed By: #### 5 7021-8 ####[facility] LABORATORYCLIA [id number] [address] Lymphocytes/100 WBC (Bld) 32.3 % Normal [facility] Comment on above: Order Comment: Speci men Type: BLOOD SPECIMENOrdering Facility: [facility] Address: [address] [place] [address] Performed By: #### 5 7021-8 ####[facility]ORATORYCLIA [id number] [address] [place] MCH (RBC) [Entitic mass] 32.3 pg Normal 26.0-34.0 [facility] Comment on above: Order Comment: Speci men Type: BLOOD SPECIMENOrdering Facility: [facility] Address: [address] [place] [address] Performed By: #### 5 7021-8 ####[facility]ATORYCLIA [id number] [address] [place] MCHC (RBC) [Mass/Vol] 32.8 g/dL Normal 30.5-36.0 [facility] Comment on above: Order Comment: Speci men Type: BLOOD SPECIMENOrdering Facility: [facility] Address: [address] [place] [address] Performed By: #### 5 7021-8 ####[facility] [place] [place] [facility]ATORYCLIA [id number] [address] [place] MCV (RBC) [Entitic vol] 98.5 fL Normal 80.0-100.0 [facility] Comment on above: Order Comment: Speci men Type: BLOOD SPECIMENOrdering Facility: [facility] Address: [address] [place] [address] Performed By: #### 5 7021-8 ####[facility] [place] [facility]ATORYCLIA [id number] [address] [place] Monocytes (Bld) [#/Vol] 0.98 10*3/uL High <0.87 [facility] Comment on above: Order Comment: Speci men Type: BLOOD SPECIMENOrdering Facility: [facility] Address: [address] [place] [address] Performed By: #### 5 7021-8 ####[facility] [place] [place] LABORATORYCLIA [id number] [address] STATES [facility] Monocytes/100 WBC (Bld) 11.2 % Normal [facility] Comment on above: Order Comment: Speci men Type: BLOOD SPECIMENOrdering Facility: [facility] Address: [address] [place] [address] Performed By: #### 5 7021-8 ####[facility] [place] [place] [facility]ATORYCLIA [id number] [address] [place] Neutrophils (Bld) [#/Vol] 4.13 10*3/uL Normal 1.45-7.50 [facility] Comment on above: Order Comment: Speci men Type: BLOOD SPECIMENOrdering Facility: [facility] Address: [address] [place] [address] Performed By: #### 5 7021-8 ####[facility]ORYCLIA [id number] [address] [place] Neutrophils/100 WBC (Bld) 47.3 % Normal [facility] Comment on above: Order Comment: Speci men Type: BLOOD SPECIMENOrdering Facility: [facility] Address: [address] [place] [address] Performed By: #### 5 7021-8 ####[facility]ORYCLIA [id number] [address] [place] Nucleated RBC (Bld) [#/Vol] 10*3/uL Normal <0.01 [facility] Comment on above: Order Comment: Speci men Type: BLOOD SPECIMENOrdering Facility: [facility] Address: [address] [place] [address] Performed By: #### 5 7021-8 ####[facility] [place] [place] [facility]ATORYCLIA [id number] [address] [place] Nucleated RBC/100 WBC (Bld) [Ratio] 0.0 /100 WBC Normal [facility] Comment on above: Order Comment: Speci men Type: BLOOD SPECIMENOrdering Facility: [facility] Address: [address] [place] [address] Performed By: #### 5 7021-8 ####[facility] [place] [place] [facility]ATORYCLIA [id number] [place] [address] [place] Platelet mean volume (Bld) [Entitic vol] 9.3 fL Normal 9.0-12.7 [facility] Comment on above: Order Comment: Speci men Type: BLOOD SPECIMENOrdering Facility: [facility] Address: [address] [place] [address] Performed By: #### 5 7021-8 ####[facility]ORATORYCLIA [id number] [place] [address] [place] Platelets (Bld) [#/Vol] 388 10*3/uL Normal 150-400 [facility] Comment on above: Order Comment: Speci men Type: BLOOD SPECIMENOrdering Facility: [facility] Address: [address] [place] [address] Performed By: #### 5 7021-8 ####[facility] [place] [place] [facility]ATORYCLIA [id number] [address] [place] RBC (Bld) [#/Vol] 3.99 10*6/uL Low 4.20-6.00 [facility] Comment on above: Order Comment: Speci men Type: BLOOD SPECIMENOrdering Facility: [facility] Address: [address] [place] [address] Performed By: #### 5 7021-8 ####[facility] [place] [place] [facility]ORATORYCLIA [id number] [address] STATES OF [facility] WBC (Bld) [#/Vol] 8.73 10*3/uL Normal 3.70-11.00 [facility] Comment on above: Order Comment: Speci men Type: BLOOD SPECIMENOrdering Facility: [facility] Address: [address] [place] [address] Performed By: #### 5 7021-8 ####[facility] [place] [place] [facility]ORATORYCLIA [id number] [address] OF [facility] CONSULT PROGon 06-09-2023 CONSULT PROG Normal [facility] PT EDon 06-09-2023 PT ED Normal [facility] THERAPY NTon 06-09-2023 THERAPY NT Normal [facility] THERAPY NT Normal [facility] Basic metabolic 2000 panelon 06-08-2023 Anion gap [Moles/Vol] 5 mmol/L Low 9-18 [facility] Comment on above: Order Comment: Speci men Type: BLOOD SPECIMENOrdering Facility: [facility] Address: [address] [place] [address] Performed By: #### 2 4321-2 ####[facility] [place] [place] [facility]ATORYCLIA [id number] [address] [place] Calcium [Mass/Vol] 8.3 mg/dL Low 8.5-10.2 [facility] Comment on above: Order Comment: Speci men Type: BLOOD SPECIMENOrdering Facility: [facility] Address: [address] [place] [address] Performed By: #### 2 4321-2 ####[facility] [place] [place] [facility]ATORYCLIA [id number] [address] Chloride [Moles/Vol] 105 mmol/L Normal 97-105 [facility] Comment on above: Order Comment: Speci men Type: BLOOD SPECIMENOrdering Facility: [facility] Address: [address] [place] [address] Performed By: #### 2 4321-2 ####[facility] [place] [place] [facility]ATORYCLIA [id number] [address] CO2 [Moles/Vol] 27 mmol/L Normal 22-30 [facility] Comment on above: Order Comment: Speci men Type: BLOOD SPECIMENOrdering Facility: [facility] Address: [address] [place] [address] Performed By: #### 2 4321-2 ####[facility] [place] [place] [facility]ATORYCLIA [id number] [address] Creatinine [Mass/Vol] 0.96 mg/dL Normal 0.73-1.22 [facility] Comment on above: Order Comment: Speci men Type: BLOOD SPECIMENOrdering Facility: [facility] Address: [address] [place] [address] Performed By: #### 2 4321-2 ####[facility] [place] [place] [facility]ATORYCLIA [id number] [address] Creatinine and Glomerular filtration rate.predicted panel (S/P/Bld) 93 mL/min/1.73m??? Normal >=60 [facility] Comment on above: Order Comment: Speci men Type: BLOOD SPECIMENOrdering Facility: [facility] Address: [address] [place] [address] Result Comment: Mariaa mated Glomerular Filtration Rate [...] actual GFR. Performed By: #### 2 4321-2 ####[facility] [place] [place] [facility]ATORYCLIA [id number] [place] [address] [place] Glucose [Mass/Vol] 111 mg/dL High 74-99 [facility] Comment on above: Order Comment: Speci men Type: BLOOD SPECIMENOrdering Facility: [facility] Address: [address] [place] [address] Result Comment: The [employer] (ADA) provides guidance for cutoff [...] Standards of Medical Care in Diabetes 2016, [employer]. Diabetes Care. 2016.39(Suppl 1). Performed By: #### 2 4321-2 ####[facility] [place] [place] [facility]ATORYCLIA [id number] [place] [address] [place] Potassium [Moles/Vol] 4.2 mmol/L Normal 3.7-5.1 [facility] Comment on above: Order Comment: Kartik blood Type: BLOOD SPECIMENOrdering Facility: [facility] Address: [address] [place] [address] Performed By: #### 2 4321-2 ####[facility] [place] [place] LABORATORYCLIA [id number] [place] [id number] [place] Sodium [Moles/Vol] 137 mmol/L Normal 136-144 [facility] Comment on above: Order Comment: Kartik blood Type: BLOOD SPECIMENOrdering Facility: [facility] Address: [address] [place] [address] Performed By: #### 2 4321-2 ####[facility] [place] [place] LABORATORYCLIA [id number] [address] STATES [facility] Urea nitrogen [Mass/Vol] 16 mg/dL Normal 9-24 [facility] Comment on above: Order Comment: Speci men Type: BLOOD SPECIMENOrdering Facility: [facility] Address: [address] [place] [address] Performed By: #### 2 4321-2 ####[facility] LABORATORYCLIA [id number] [address] [place] CBC W Auto Differential pane l (Bld)on 06-08-2023 Basophils (Bld) [#/Vol] 0.05 10*3/uL Normal <0.11 [facility] Comment on above: Order Comment: Speci men Type: BLOOD SPECIMENOrdering Facility: [facility] Address: [address] [place] [address] Performed By: #### 5 7021-8 ####[facility] [facility]ORATORYCL[place] [id number] [address] [place] [facility] Basophils/100 WBC (Bld) 0.6 % Normal [facility] Comment on above: Order Comment: Speci men Type: BLOOD SPECIMENOrdering Facility: [facility] Address: [address] [place] [address] Performed By: #### 5 7021-8 ####[facility] LABORATORYCLIA [id number] [address] Differential cell count method Nom (Bld) Auto Normal [facility] Comment on above: Order Comment: Speci men Type: BLOOD SPECIMENOrdering Facility: [facility] Address: [address] [place] [address] Performed By: #### 5 7021-8 ####[facility] LABORATORYCLIA [id number] [address] [place] Eosinophils (Bld) [#/Vol] 0.64 10*3/uL High <0.46 [facility] Comment on above: Order Comment: Speci men Type: BLOOD SPECIMENOrdering Facility: [facility] Address: [address] [place], [place] [address] Performed By: #### 5 7021-8 ####[facility] LABORATORYCLIA [id number] [address] Eosinophils/100 WBC (Bld) 7.4 % Normal [facility] Comment on above: Order Comment: Speci men Type: BLOOD SPECIMENOrdering Facility: [facility] Address: [address] [place] [address] Performed By: #### 5 7021-8 ####[facility] LABORATORYCLIA [id number] [address] [place] Erythrocyte distribution width (RBC) [Ratio] 14.0 % Normal 11.5-15.0 [facility] Comment on above: Order Comment: Speci men Type: BLOOD SPECIMENOrdering Facility: [facility] Address: [address] [place] [address] Performed By: #### 5 7021-8 ####[facility] LABORATORYCLIA [id number] [address] Hematocrit (Bld) [Volume fraction] 42.8 % Normal 39.0-51.0 [facility] Comment on above: Order Comment: Speci men Type: BLOOD SPECIMENOrdering Facility: [facility] Address: [address] [place] [address] Performed By: #### 5 7021-8 ####[facility] LABORATORYCLIA [id number] [address] [place] Hemoglobin (Bld) [Mass/Vol] 14.1 g/dL Normal 13.0-17.0 [facility] Comment on above: Order Comment: Speci men Type: BLOOD SPECIMENOrdering Facility: [facility] Address: [address] [place] [address] Performed By: #### 5 7021-8 ####[facility] LABORATORYCLIA [id number] [address] Immature granulocytes (Bld) [#/Vol] 0.04 10*3/uL Normal <0.10 [facility] Comment on above: Order Comment: Speci men Type: BLOOD SPECIMENOrdering Facility: [facility] Address: [address] [place] [address] Performed By: #### 5 7021-8 ####[facility]ATORYCLIA [id number] [address] Immature granulocytes/100 WBC (Bld) 0.5 % Normal [facility] Comment on above: Order Comment: Speci men Type: BLOOD SPECIMENOrdering Facility: [facility] Address: [address] [place] [address] Performed By: #### 5 7021-8 ####[facility]ORATORYCLIA [id number] [address] Lymphocytes (Bld) [#/Vol] 2.88 10*3/uL Normal 1.00-4.00 [facility] Comment on above: Order Comment: Speci men Type: BLOOD SPECIMENOrdering Facility: [facility] Address: [address] [place] [address] Performed By: #### 5 7021-8 ####[facility]ORATORYCLIA [id number] [address] Lymphocytes/100 WBC (Bld) 33.2 % Normal [facility] Comment on above: Order Comment: Speci men Type: BLOOD SPECIMENOrdering Facility: [facility] Address: [address] [place] [address] Performed By: #### 5 7021-8 ####[facility]ORATORYCLIA [id number] [address] STATES [facility] MCH (RBC) [Entitic mass] 32.3 pg Normal 26.0-34.0 [facility] Comment on above: Order Comment: Speci men Type: BLOOD SPECIMENOrdering Facility: [facility] Address: [address] [place] [address] Performed By: #### 5 7021-8 ####[facility]ORATORYCLIA [id number] [address] STATES [facility] MCHC (RBC) [Mass/Vol] 32.9 g/dL Normal 30.5-36.0 [facility] Comment on above: Order Comment: Speci men Type: BLOOD SPECIMENOrdering Facility: [facility] Address: [address] [place] [address] Performed By: #### 5 7021-8 ####[facility] LABORATORYCLIA [id number] [address] [place] MCV (RBC) [Entitic vol] 98.2 fL Normal 80.0-100.0 [facility] Comment on above: Order Comment: Speci men Type: BLOOD SPECIMENOrdering Facility: [facility] Address: [address] [place] [address] Performed By: #### 5 7021-8 ####[facility] LABORATORYCLIA [id number] [address] [place] Monocytes (Bld) [#/Vol] 0.94 10*3/uL High <0.87 [facility] Comment on above: Order Comment: Speci men Type: BLOOD SPECIMENOrdering Facility: [facility] Address: [address] [place] [address] Performed By: #### 5 7021-8 ####[facility] LABORATORYCLIA [id number] [address] Monocytes/100 WBC (Bld) 10.8 % Normal [facility] Comment on above: Order Comment: Speci men Type: BLOOD SPECIMENOrdering Facility: [facility] Address: [address] [place] [address] Performed By: #### 5 7021-8 ####[facility] LABORATORYCLIA [id number] [address] [place] Neutrophils (Bld) [#/Vol] 4.13 10*3/uL Normal 1.45-7.50 [facility] Comment on above: Order Comment: Speci men Type: BLOOD SPECIMENOrdering Facility: [facility] Address: [address] [place] [address] Performed By: #### 5 7021-8 ####[facility] LABORATORYCLIA [id number] [address] Neutrophils/100 WBC (Bld) 47.5 % Normal [facility] Comment on above: Order Comment: Speci men Type: BLOOD SPECIMENOrdering Facility: [facility] Address: [address] [place] [address] Performed By: #### 5 7021-8 ####[facility] LABORATORYCLIA [id number] [address] [place] Nucleated RBC (Bld) [#/Vol] 10*3/uL Normal <0.01 [facility] Comment on above: Order Comment: Speci men Type: BLOOD SPECIMENOrdering Facility: [facility] Address: [address] [place] [address] Performed By: #### 5 7021-8 ####[facility] LABORATORYCLIA [id number] [address] Nucleated RBC/100 WBC (Bld) [Ratio] 0.0 /100 WBC Normal [facility] Comment on above: Order Comment: Speci men Type: BLOOD SPECIMENOrdering Facility: [facility] Address: [address] [place] [address] Performed By: #### 5 7021-8 ####[facility] LABORATORYCLIA [id number] [address] [place] Platelet mean volume (Bld) [Entitic vol] 9.2 fL Normal 9.0-12.7 [facility] Comment on above: Order Comment: Speci men Type: BLOOD SPECIMENOrdering Facility: [facility] Address: [address] [place] [address] Performed By: #### 5 7021-8 ####[facility] LABORATORYCLIA [id number] [place] [address] [place] Platelets (Bld) [#/Vol] 390 10*3/uL Normal 150-400 [facility] Comment on above: Order Comment: Speci men Type: BLOOD SPECIMENOrdering Facility: [facility] Address: [address] [place] [address] Performed By: #### 5 7021-8 ####[facility]ORATORYCLIA [id number] [place] [address] [place] RBC (Bld) [#/Vol] 4.36 10*6/uL Normal 4.20-6.00 [facility] Comment on above: Order Comment: Speci men Type: BLOOD SPECIMENOrdering Facility: [facility] Address: [address] [place] [address] Performed By: #### 5 7021-8 ####[facility] LABORATORYCLIA [id number] [place] [address] [place] WBC (Bld) [#/Vol] 8.68 10*3/uL Normal 3.70-11.00 [facility] Comment on above: Order Comment: Speci men Type: BLOOD SPECIMENOrdering Facility: [facility] Address: [address] [place] [address] Performed By: #### 5 7021-8 ####[facility] LABORATORYCLIA [id number] [address] [place] CONSULT PROGon 06-08-2023 CONSULT PROG Normal [facility] CONSULT PROG Normal [facility] NURSING PROGon 06-08-2023 NURSING PROG Normal [facility] ANES POSTPROC EVALon 023 ANES POSTPROC EVAL Normal [facility] ANES PRE-OPon 06-07-2023 ANES PRE-OP Normal [facility] BRIEF OP NOTon 06-07-2023 BRIEF OP NOT Normal [facility] CBC W Auto Differential pane l (Bld)on 06-07-2023 Basophils (Bld) [#/Vol] 0.08 10*3/uL Normal <0.11 [facility] Comment on above: Order Comment: Speci men Type: BLOOD SPECIMENOrdering Facility: [facility] Address: [address] [place] [address] Performed By: #### 5 7021-8 ####[facility] LABORATORYCLIA [id number] [address] [place] Basophils/100 WBC (Bld) 0.8 % Normal [facility] Comment on above: Order Comment: Speci men Type: BLOOD SPECIMENOrdering Facility: [facility] Address: [address] [place] [address] Performed By: #### 5 7021-8 ####[facility] LABORATORYCLIA [id number] [address] Differential cell count method Nom (Bld) Auto Normal [facility] Comment on above: Order Comment: Speci men Type: BLOOD SPECIMENOrdering Facility: [facility] Address: [address] [place] [address] Performed By: #### 5 7021-8 ####[facility] LABORATORYCLIA [id number] [address] [place] Eosinophils (Bld) [#/Vol] 0.71 10*3/uL High <0.46 [facility] Comment on above: Order Comment: Speci men Type: BLOOD SPECIMENOrdering Facility: [facility] Address: [address] [place] [address] Performed By: #### 5 7021-8 ####[facility] LABORATORYCLIA [id number] [address] STATES [facility] Eosinophils/100 WBC (Bld) 6.8 % Normal [facility] Comment on above: Order Comment: Speci men Type: BLOOD SPECIMENOrdering Facility: [facility] Address: [address] [place] [address] Performed By: #### 5 7021-8 ####[facility] LABORATORYCLIA [id number] [address] Erythrocyte distribution width (RBC) [Ratio] 13.2 % Normal 11.5-15.0 [facility] Comment on above: Order Comment: Speci men Type: BLOOD SPECIMENOrdering Facility: [facility] Address: [address] [place] [address] Performed By: #### 5 7021-8 ####[facility]ORATORYCLIA [id number] [address] [place] Hematocrit (Bld) [Volume fraction] 46.2 % Normal 39.0-51.0 [facility] Comment on above: Order Comment: Speci men Type: BLOOD SPECIMENOrdering Facility: [facility] Address: [address] [place] [address] Performed By: #### 5 7021-8 ####[facility]ORATORYCLIA [id number] [address] [place] Hemoglobin (Bld) [Mass/Vol] 16.5 g/dL Normal 13.0-17.0 [facility] Comment on above: Order Comment: Speci men Type: BLOOD SPECIMENOrdering Facility: [facility] Address: [address] [place] [address] Performed By: #### 5 7021-8 ####[facility] LABORATORYCLIA [id number] [place] [address] [place] Immature granulocytes (Bld) [#/Vol] 0.04 10*3/uL Normal <0.10 [facility] Comment on above: Order Comment: Speci men Type: BLOOD SPECIMENOrdering Facility: [facility] Address: [address] [place] [address] Performed By: #### 5 7021-8 ####[facility] LABORATORYCLIA [id number] [address] [place] Immature granulocytes/100 WBC (Bld) 0.4 % Normal [facility] Comment on above: Order Comment: Speci men Type: BLOOD SPECIMENOrdering Facility: [facility] Address: [address] [place] [address] Performed By: #### 5 7021-8 ####[facility]ORATORYCLIA [id number] [place] [address] [place] Lymphocytes (Bld) [#/Vol] 3.06 10*3/uL Normal 1.00-4.00 [facility] Comment on above: Order Comment: Speci men Type: BLOOD SPECIMENOrdering Facility: [facility] Address: [address] [place] [address] Performed By: #### 5 7021-8 ####[facility]ORATORYCLIA [id number] [address] STATES OF [facility] Lymphocytes/100 WBC (Bld) 29.2 % Normal [facility] Comment on above: Order Comment: Speci men Type: BLOOD SPECIMENOrdering Facility: [facility] Address: [address] [place] [address] Performed By: #### 5 7021-8 ####[facility] LABORATORYCLIA [id number] [address] [place] MCH (RBC) [Entitic mass] 33.3 pg Normal 26.0-34.0 [facility] Comment on above: Order Comment: Speci men Type: BLOOD SPECIMENOrdering Facility: [facility] Address: [address] [place] [address] Performed By: #### 5 7021-8 ####[facility] LABORATORYCLIA [id number] [address] [place] MCHC (RBC) [Mass/Vol] 35.7 g/dL Normal 30.5-36.0 [facility] Comment on above: Order Comment: Speci men Type: BLOOD SPECIMENOrdering Facility: [facility] Address: [address] [place] [address] Performed By: #### 5 7021-8 ####[facility] LABORATORYCLIA [id number] [address] [place] MCV (RBC) [Entitic vol] 93.1 fL Normal 80.0-100.0 [facility] Comment on above: Order Comment: Speci men Type: BLOOD SPECIMENOrdering Facility: [facility] Address: [address] [place] [address] Performed By: #### 5 7021-8 ####[facility] LABORATORYCLIA [id number] [address] [place] Monocytes (Bld) [#/Vol] 0.97 10*3/uL High <0.87 [facility] Comment on above: Order Comment: Speci men Type: BLOOD SPECIMENOrdering Facility: [facility] Address: [address] [place] [address] Performed By: #### 5 7021-8 ####[facility]ORATORYCLIA [id number] [address] [place] Monocytes/100 WBC (Bld) 9.3 % Normal [facility] Comment on above: Order Comment: Speci men Type: BLOOD SPECIMENOrdering Facility: [facility] Address: [address] [place] [address] Performed By: #### 5 7021-8 ####[facility]ORATORYCLIA [id number] [place] [address] [place] Neutrophils (Bld) [#/Vol] 5.61 10*3/uL Normal 1.45-7.50 [facility] Comment on above: Order Comment: Speci men Type: BLOOD SPECIMENOrdering Facility: [facility] Address: [address] [place] [address] Performed By: #### 5 7021-8 ####[facility]ATORYCLIA [id number] [address] [place] Neutrophils/100 WBC (Bld) 53.5 % Normal [facility] Comment on above: Order Comment: Speci men Type: BLOOD SPECIMENOrdering Facility: [facility] Address: [address] [place] [address] Performed By: #### 5 7021-8 ####[facility]ORATORYCLIA [id number] [address] [place] Nucleated RBC (Bld) [#/Vol] 10*3/uL Normal <0.01 [facility] Comment on above: Order Comment: Speci men Type: BLOOD SPECIMENOrdering Facility: [facility] Address: [address] [place] [address] Performed By: #### 5 7021-8 ####[facility]ATORYCLIA [id number] [address] [place] Nucleated RBC/100 WBC (Bld) [Ratio] 0.0 /100 WBC Normal [facility] Comment on above: Order Comment: Speci men Type: BLOOD SPECIMENOrdering Facility: [facility] Address: [address] [place], [place] [address] Performed By: #### 5 7021-8 ####[facility] LABORATORYCLIA [id number] [address] [place] Platelet mean volume (Bld) [Entitic vol] 9.1 fL Normal 9.0-12.7 [facility] Comment on above: Order Comment: Speci men Type: BLOOD SPECIMENOrdering Facility: [facility] Address: [address] [place] [address] Performed By: #### 5 7021-8 ####[facility] LABORATORYCLIA [id number] [address] [place] Platelets (Bld) [#/Vol] 470 10*3/uL High 150-400 [facility] Comment on above: Order Comment: Speci men Type: BLOOD SPECIMENOrdering Facility: [facility] Address: [address] [place] [address] Performed By: #### 5 7021-8 ####[facility] LABORATORYCLIA [id number] [address] [place] RBC (Bld) [#/Vol] 4.96 10*6/uL Normal 4.20-6.00 [facility] Comment on above: Order Comment: Speci men Type: BLOOD SPECIMENOrdering Facility: [facility] Address: [address] [place] [address] Performed By: #### 5 7021-8 ####[facility] [facility]ORATORYCLIA [id number] [address] [place] WBC (Bld) [#/Vol] 10.47 10*3/uL Normal 3.70-11.00 [facility] Comment on above: Order Comment: Speci men Type: BLOOD SPECIMENOrdering Facility: [facility] Address: [address] [place] [address] Performed By: #### 5 7021-8 ####[facility] [facility]ORATORYCLIA [id number] [address] [place] CK SerPl-cCncon 06-07-2023 CK [Catalytic activity/Vol] 171 U/L Normal 51-298 [facility] Comment on above: Order Comment: Speci men Type: BLOOD SPECIMENOrdering Facility: [facility] Address: [address] [place] [address] Performed By: #### 2 157-6, ####[facility] [place] [place] LABORATORYCLIA [id number] [place] [address] [place] CONSULTon 06-07-2023 CONSULT Normal [facility] CONSULT Normal [facility] Comprehensive metabolic 2000 panelon 06-07-2023 Albumin [Mass/Vol] 4.0 g/dL Normal 3.9-4.9 [facility] Comment on above: Order Comment: Speci men Type: BLOOD SPECIMENOrdering Facility: [facility] Address: [address] [place] [address] Performed By: #### 2 157-6, 70547-9 ####[facility] [place] [place] [facility]ORATORYCLIA [id number] [place] [address] [place] ALP [Catalytic activity/Vol] 89 U/L Normal 38-113 [facility] Comment on above: Order Comment: Speci men Type: BLOOD SPECIMENOrdering Facility: [facility] Address: [address] [place] [address] Performed By: #### 2 157-6, ####[facility] [place] [facility]ATORYCLIA [id number] [place] [address] [place] ALT With P-5'-P [Catalytic activity/Vol] 44 U/L Normal 10-54 [facility] Comment on above: Order Comment: Speci men Type: BLOOD SPECIMENOrdering Facility: [facility] Address: [address] [place] [address] Performed By: #### 2 157-6, ####[facility]ORATORYCLIA [id number] [place] [address] [place] Anion gap [Moles/Vol] 12 mmol/L Normal 9-18 [facility] Comment on above: Order Comment: Speci men Type: BLOOD SPECIMENOrdering Facility: [facility] Address: [address] [place] [address] Performed By: #### 2 157-6, ####[facility]ORATORYCLIA [id number] [place] [address] [place] AST With P-5'-P [Catalytic activity/Vol] 36 U/L Normal 14-40 [facility] Comment on above: Order Comment: Speci men Type: BLOOD SPECIMENOrdering Facility: [facility] Address: [address] [place] [address] Performed By: #### 2 157-6, ####[facility]ATORYCLIA [id number] [place] [address] [place] Bilirubin [Mass/Vol] 0.4 mg/dL Normal 0.2-1.3 [facility] Comment on above: Order Comment: Speci men Type: BLOOD SPECIMENOrdering Facility: [facility] Address: [address] [place] [address] Performed By: #### 2 157-, ####[facility]ORATORYCLIA [id number] [place] [address] [place] Calcium [Mass/Vol] 9.4 mg/dL Normal 8.5-10.2 [facility] Comment on above: Order Comment: Speci men Type: BLOOD SPECIMENOrdering Facility: [facility] Address: [address] [place] [address] Performed By: #### 2 157-6, ####[facility]ORATORYCLIA [id number] [place] [address] [place] Chloride [Moles/Vol] 106 mmol/L High 97-105 [facility] Comment on above: Order Comment: Speci men Type: BLOOD SPECIMENOrdering Facility: [facility] Address: [address] [place] [address] Performed By: #### 2 157-6, ####[facility]ORATORYCLIA [id number] [place] [address] [place] CO2 [Moles/Vol] 22 mmol/L Normal 22-30 [facility] Comment on above: Order Comment: Speci men Type: BLOOD SPECIMENOrdering Facility: [facility] Address: [address] [place] [address] Performed By: #### 2 157-6, 87248-7 ####[facility]ITALCLIA [id number] [address] STATES OF [facility] Creatinine [Mass/Vol] 0.92 mg/dL Normal 0.73-1.22 [facility] Comment on above: Order Comment: Speci men Type: BLOOD SPECIMENOrdering Facility: [facility] Address: [address] [place] [address] Performed By: #### 2 157-6, 93334-9 ####[facility] SYSTEMIA [id number] [address] Creatinine and Glomerular filtration rate.predicted panel (S/P/Bld) 98 mL/min/1.73m??? Normal >=60 [facility] Comment on above: Order Comment: Speci men Type: BLOOD SPECIMENOrdering Facility: [facility] Address: [address] [place] [address] Result Comment: Mariaa mated Glomerular Filtration Rate [...] actual GFR. Performed By: #### 2 157-6, 32580-6 ####[facility] [place] [place] [facility]ATORYCLIA [id number] [address] [place] Glucose [Mass/Vol] 96 mg/dL Normal 74-99 [facility] Comment on above: Order Comment: Kartik blood Type: BLOOD SPECIMENOrdering Facility: [facility] Address: [address] [place] [address] Result Comment: The [employer] (ADA) provides guidance for cutoff [...] Standards of Medical Care in Diabetes 2016, [employer]. Diabetes Care. 2016.39(Suppl 1). Performed By: #### 2 157-6, ####[facility] [place] [facility]ORYCLIA [id number] [place] [address] [place] Potassium [Moles/Vol] 3.8 mmol/L Normal 3.7-5.1 [facility] Comment on above: Order Comment: Kartik blood Type: BLOOD SPECIMENOrdering Facility: [facility] Address: [address] [place] [address] Performed By: #### 2 157-, ####[facility] [place] [place] [facility]ORYCLIA [id number] [place] [address] [place] Protein [Mass/Vol] 7.2 g/dL Normal 6.3-8.0 [facility] Comment on above: Order Comment: Kartik blood Type: BLOOD SPECIMENOrdering Facility: [facility] Address: [address] [place] [address] Performed By: #### 2 157-6, ####[facility] [place] [place] [facility]ORYCLIA [id number] [place] [address] [place] Sodium [Moles/Vol] 140 mmol/L Normal 136-144 [facility] Comment on above: Order Comment: Kartik blood Type: BLOOD SPECIMENOrdering Facility: [facility] Address: [address] [place] [address] Performed By: #### 2 157-, ####[facility] LABORATORYCLIA [id number] [place] [address] [place] Urea nitrogen [Mass/Vol] 18 mg/dL Normal 9-24 [facility] Comment on above: Order Comment: Speci men Type: BLOOD SPECIMENOrdering Facility: [facility] Address: [address] [place], [place] [address] [address] Performed By: #### 2 157-6, 04498-7 ####[facility] LABORATORYCLIA [id number] [place] [address] [facility] ED NOTEon 06-07-2023 ED NOTE HNO ID: [id number] Author: Dayron Bella RN Service: Emergency Medicine Author Type: Registered Nurse Type: ED Notes Filed: 06/07/2023 7:03 AM Note Text: Pt to OR7 with Dr. Orellana via Cart at this time [facility] ED NOTE HNO ID: [id number] Author: Dayron Bella RN Service: Emergency Medicine Author Type: Registered Nurse Type: ED Notes Filed: 06/07/2023 6:53 AM Note Text: OR7 Ready at this time per presurg [facility] ED NOTE HNO ID: [id number] Author: Dayron Bella RN Service: Emergency Medicine Author Type: Registered Nurse Type: ED Notes Filed: 06/07/2023 6:33 AM Note Text: Report given to Elen w Presurg - No timeframe yet for patient to go to OR. [facility] ED NOTE HNO ID: [id number] Author: Dayron Bella RN Service: Emergency Medicine Author Type: Registered Nurse Type: ED Notes Filed: 06/07/2023 5:52 AM Note Text: Dr. Leobardo Flanagan resident notified of med administration by secure message [facility] ED NOTE HNO ID: [id number] Author: Dayron Bella RN Service: Emergency Medicine Author Type: Registered Nurse Type: ED Notes Filed: 06/07/2023 4:59 AM Note Text: Waiting on med from pharmacy - calling pharmacy at this time. [facility] ED NOTE HNO ID: [id number] Author: Dayron Bella RN Service: Emergency Medicine Author Type: Registered Nurse Type: ED Notes Filed: 06/07/2023 4:24 AM Note Text: XR at bedside [facility] ED NOTE Normal [facility] ED NOTE Normal [facility] ED NOTE HNO ID: [id number] Author: Martha Presley RN Service: ? Author Type: Registered Nurse Type: ED Notes Filed: 06/07/2023 1:57 AM Note Text: Bed: 25-ED Expected date: Expected time: Means of arrival: Comments: triage Normal [facility] ED PROV NOTEon 06-07-2023 ED PROV NOTE Normal [facility] ED PROV NOTE Normal [facility] HISTORY PHYSICALon HISTORY PHYSICAL Normal [facility] NURSING PROGon 06-07-2023 NURSING PROG Normal [facility] OPERATIVE NOon 06-07-2023 OPERATIVE NO Normal [facility] PT panel Coag (PPP)on 2022 INR Coag (PPP) [Relative time] 1.0 {INR} Normal 0.9-1.3 [facility] Comment on above: Order Comment: Speci men Type: BLOOD SPECIMENOrdering Facility: [facility] Address: [address] [place] [address] Result Comment: Renee min K Antagonist (VKA) Therapeutic Range: INR 2 to 3 (Target INR of 2.5)Note: For patients treated with VKA drugs, such as warfarin, the [employer] 2012 Guideline recommends [...] al. Chest 2012, 141:7S-47SNishimura RA, et al. [facility] 2017, 70: 252-289 Performed By: #### 1 4979-9, 03798-0 ####[facility] [place] LABORATORYCLIA [id number] [address] OF [facility] PT Coag (PPP) [Time] 10.7 s Normal 9.7-13.0 [facility] Comment on above: Order Comment: Speci men Type: BLOOD SPECIMENOrdering Facility: [facility] Address: [place] [address] Performed By: #### 1 4979-9, 04162-7 ####[facility] [place] LABORATORYCLIA [id number] [place] [address] [place] [facility] INR Coag (PPP) [Relative time] 1.0 {INR} Normal 0.9-1.3 [facility] Comment on above: Order Comment: Speci men Type: BLOOD SPECIMENOrdering Facility: [facility] Address: [place] [address] Result Comment: Renee min K Antagonist (VKA) Therapeutic Range: INR 2 to 3 (Target INR of 2.5)Note: For patients treated with VKA drugs, such as warfarin, the [employer] 2012 Guideline recommends [...] al. Chest 2012, 141:7S-47SNishimura RA, et al. [facility] 2017, 70: 252-289 Performed By: #### 3 4528-0, 19636-7 ####[facility] LABORATORYCLIA [id number] [place] [id number] [place] PT Coag (PPP) [Time] 10.9 s Normal 9.7-13.0 [facility] Comment on above: Order Comment: Speci men Type: BLOOD SPECIMENOrdering Facility: [facility] Address: [place] [address] Performed By: #### 3 4528-0, 53221-8 ####[facility] LABORATORYCLIA [id number] [place] [address] [place] TYPE + SCREENon 06-07-2023 ABO A Normal [facility] Comment on above: Order Comment: Speci men Type: BLOOD SPECIMENOrdering Facility: [facility] Address: [address] [place] [address] Performed By: #### T SCR ####[facility] BLOOD BANKCLIA [id number] [address] OF [place] HISTORICAL AB SCR STATUS Negative Normal [facility] Comment on above: Order Comment: Speci men Type: BLOOD SPECIMENOrdering Facility: [facility] Address: [address] [place] [address] Performed By: #### T SCR ####[facility] BLOOD BANKCLIA [id number] [address] [place] Rh Nom (Bld) Positive Normal [facility] Comment on above: Order Comment: Speci men Type: BLOOD SPECIMENOrdering Facility: [facility] Address: [address] [place] [address] Performed By: #### T SCR ####[facility] BLOOD BANKCLIA [id number] [address] TYPE AND SCREEN EXPIRATION 06/10/2023 23:59 Normal [facility] Comment on above: Order Comment: Speci men Type: BLOOD SPECIMENOrdering Facility: [facility] Address: [address] [place] [address] Performed By: #### T SCR ####[facility] BLOOD BANKCLIA [id number] [address] OF [place] Urinalysis complete panel (U )on 06-07-2023 Bilirubin Ql (U) Negative Normal Negative [facility] Comment on above: Order Comment: Speci men Type: URINE SPECIMENOrdering Facility: [facility] Address: [address] [place] [address] Performed By: #### 2 4356-8 ####[facility] LABORATORYCLIA [id number] [address] [place] Clarity (Unsp spec) Clear Normal Clear [facility] Comment on above: Order Comment: Speci men Type: URINE SPECIMENOrdering Facility: [facility] Address: [address] [place] [address] Performed By: #### 2 4356-8 ####[facility] LABORATORYCLIA [id number] [place] [address] [place] Color (U) Yellow Normal yellow [facility] Comment on above: Order Comment: Speci men Type: URINE SPECIMENOrdering Facility: [facility] Address: [address] [place] [address] Performed By: #### 2 4356-8 ####[facility] LABORATORYCLIA [id number] [address] [place] Epithelial cells LM.HPF (Urine sed) [#/Area] Few Abnormal None Seen [facility] Comment on above: Order Comment: Speci men Type: URINE SPECIMENOrdering Facility: [facility] Address: [address] [place] [address] Performed By: #### 2 4356-8 ####[facility] LABORATORYCLIA [id number] [address] [place] Glucose Test strip (U) [Mass/Vol] Negative Normal Trace, Negative [facility] Comment on above: Order Comment: Speci men Type: URINE SPECIMENOrdering Facility: [facility] Address: [address] [place] [address] Performed By: #### 2 4356-8 ####[facility] LABORATORYCLIA [id number] [place] [address] [place] Hemoglobin Ql (U) Negative Normal Negative, Trace [facility] Comment on above: Order Comment: Speci men Type: URINE SPECIMENOrdering Facility: [facility] Address: [address] [place] [address] Performed By: #### 2 4356-8 ####[facility] LABORATORYCLIA [id number] [address] [place] Ketones Ql (U) Negative Normal Negative, Trace [facility] Comment on above: Order Comment: Speci men Type: URINE SPECIMENOrdering Facility: [facility] Address: [address] [place] [address] Performed By: #### 2 4356-8 ####[facility] LABORATORYCLIA [id number] [address] [place] Leukocyte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 mmol/L 3.5 - 5.1 mmol/L [facility] Sodium [Moles/Vol] 136 mmol/L 135 - 145 mmol/L [facility] Urea nitrogen [Mass/Vol] 25 mg/dL High 9 - 20 mg/dL [facility] CBC W Auto Differential pane l (Bld)Ordered By: Maria Victoria Love on 02-09-2023 Basophils (Bld) [#/Vol] 0.1 10*3/uL 0.0 - 0.2 10*3/uL [facility] Basophils/100 WBC (Bld) 0.8 % 0.0 - 2.0 % [facility] Eosinophils (Bld) [#/Vol] 0.2 10*3/uL 0.0 - 0.5 10*3/uL [facility] Eosinophils/100 WBC (Bld) 1.8 % 1.0 - 6.0 % [facility] Erythrocyte distribution width (RBC) [Ratio] 14.6 % High 11.5 - 14.5 % [facility] Hematocrit (Bld) [Volume fraction] 41.0 % 40.0 - 52.0 % [facility] Hemoglobin (Bld) [Mass/Vol] 13.5 g/dL 13.0 - 18.0 g/dL [facility] Interpretation and review of laboratory results Abnormal [facility] Lymphocytes (Bld) [#/Vol] 2.6 10*3/uL 1.0 - 4.3 10*3/uL [facility] Lymphocytes/100 WBC (Bld) 19.3 % Low 20.0 - 40.0 % [facility] MCH (RBC) [Entitic mass] 32.7 pg 26.0 - 34.0 pg [facility] MCHC (RBC) [Mass/Vol] 32.9 % 32.0 - 36.0 % [facility] MCV (RBC) [Entitic vol] 99.3 fL High 80.0 - 98.0 fL [facility] Monocytes (Bld) [#/Vol] 1.5 10*3/uL High 0.0 - 0.8 10*3/uL [facility] Monocytes/100 WBC (Bld) 10.9 % High 2.0 - 10.0 % [facility] Neutrophils (Bld) [#/Vol] 9.0 10*3/uL High 1.8 - 7.0 10*3/uL [facility] Neutrophils/100 WBC (Bld) 67.2 % 40.0 - 80.0 % [facility] Nucleated RBC/100 WBC (Bld) [Ratio] 0.1 % [facility] Platelet mean volume (Bld) [Entitic vol] 7.4 fL 7.4 - 12.4 fL [facility] [employer] Platelets (Bld) [#/Vol] 482 10*3/uL High 140 - 440 10*3/uL [facility] [employer] RBC (Bld) [#/Vol] 4.12 10*6/uL Low 4.40 - 5.90 10*6/uL [facility] [employer] WBC (Bld) [#/Vol] 13.4 10*3/uL High 3.6 - 10.7 10*3/uL [facility] [employer] [facility] CT ABDOMEN PELVIS W CONTRAST on 02-09-2023 CT ABDOMEN PELVIS W CONTRAST Patient Name: ISIDRO SMITH : 1965 [facility]#: [id number] Exam Date/Time: 02/09/2023 15:04 Procedure: CT ABDOMEN [...] radiologist further eval Hx drug abuse/alcholism Normal [facility] CT Abdomen and Pelvis W cont [...] MD Electronically Signed Date/Time: 02/09/2023 3:31 PM [facility] Patient Name: ISIDRO SMITH : 1965 [facility]#: [id number] Exam Date/Time: 02/09/2023 15:04 Procedure: CT ABDOMEN [...] discogenic degenerative changes of the thoracolumbar spine. [facility] Uri Bolton MD - 02/09/2023 Patient Name: [facility]IDRO SMITH [facility] 1965 [id number] Exam Date/Time: 02/09/2023 15:04 Procedure: CT ABDOMEN [...] Electronically Signed Date/Time: 02/09/2023 3:31 PM EDT [facility] [employer] Radiology Study observation (narrative) [facility]domen and Pelvis W cont rast IVOrdered By: Uri Bolton on 02-09-2023 [email or web address] Work Phone: CT FEMUR RIGHT W IV [...] to listen to instructions and moving Normal [facility] CT Thigh - right W contrast [...] Electronically Signed Date/Time: 02/09/2023 2:14 PM EDT [facility] Patient Name: ISIDRO SMITH : 1965 [...] pubic sepsis are intact. No acute fractures. 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 Normal [facility] ED Nursing Note Bed: 04 Expected date: Expected time: Means of arrival: Comments: Risa Dunham RN 02/09/23 1132 Normal [facility] ED Provider Noteon ED Provider Note Emergency Department Encounter Location: [facility] ED Patient: Isidro Smith : [...] and thigh pain. Was just admitted at [facility] for iliopsoas hematoma, history of hemophilia B, awaiting admission to [facility], we do not have the recombinant factor here at [facility] or at [facility]. Will need to be admitted to [facility] and patient does not want to return back to [facility]. I have reviewed and interpreted all of [...] to a known hematoma, was admitted at [facility] and left AMA today. Unfortunately did not have the recombinant factor here at our facility to manage patient's diagnosis. Patient will need to be transferred to [facility], he does not want to return back to [facility]. After several hours here in the emergency department, our attending physician did have discussion with the patient and he is agreeable to return back to [facility]. Dr. Shi spoke to the transfer line to get the patient admitted at [facility]. Patient has pain to palpation to the right thigh and slight swelling of the right compared to the left lower extremity. He has normal DP and PT pulses intact with a brisk capillary refill. Compartments are soft of the lower extremiti (more content not included)... Normal [facility] ED Provider Note Emergency Department Encounter [facility] ED Patient: Isidro Smith : 1965 Date of Evaluation: 02/09/2023 ED Supervising Physician: Frederick Valiente DO I independently examined and evaluated Isidro Smith. This will serve as my Supervisory note as the unit tender of record and shared attestation. I did [...] was initially seen and evaluated at the [facility] where they did administer recombinant factor [...] in his sleep. Hemoglobin initially 14 at [facility]. Patient left AMA when they stop giving [...] [employer] Frederick Valiente DO 02/09/23 1507 [facility] ED Provider Note EMERGENCY DEPARTMENT ENCOUNTER Pt [...] formation. He was seen and evaluated at [facility] earlier today, where he left AMA [...] Diagnosis Date Alcohol abuse Depression Drug abuse ([facility]) SURGICAL HISTORY Past Surgical History: Procedure Laterality [...] steatosis, correlat (more content not included)... Normal [email or web address] [facility] Laboratory - Coagulationon 0 02-09-2023 PT Coag (Bld) [Time] 10.7 s 9.0 - 12.0 s [email or web address] No Panel Informationon 02-09 Interpretation and review of laboratory results [facility] Coag (Bld) [Time]on 02-09 INR Coag (PPP) [Relative time] 1.0 {INR} 0.9 - 1.1 [email or web address] Comment on above: Recommended Anticoag ulant Therapy: [...] [Time] 27.8 s 20.0 - 30.5 s [email or web address] NOTE: The therapeuti c time for Heparin anticoagulation, based on Xa activity inhibition, is an APTT of 46-80 seconds. [email or web address] WRIST COMPLETE RTon 11-06-19 WRIST COMPLETE RT [place] [address] Patient: ISIDRO SMITH Phone#: : 1965 Age: 57 Gender: M Pt. Type: ER Account: [id number] Location: [facility] Ordering: MARIO SWIFT Exam Date: 11/05/2022/9:54 Family Phys: Charge Code: 415600 Physician: Cole Order #: [id number] Dose#: PROCEDURE: X-RAY WRIST RT COMPLETE MIN [...] Karyn Rivera MD on 11/05/2022 at 10:03 [facility] CBC W Auto Differential pane l (Bld)on 03-08-2021 Basophils (Bld) [#/Vol] 0.05 10*3/uL <0.11 k/uL [facility] Basophils/100 WBC (Bld) 0.6 % [facility] Differential cell count method Nom (Bld) Auto [facility] Eosinophils (Bld) [#/Vol] 0.32 10*3/uL <0.46 k/uL [facility] Eosinophils/100 WBC (Bld) 4.1 % [facility] Erythrocyte distribution width (RBC) [Ratio] 17.0 % High 11.5 - 15.0 % [facility] Hematocrit (Bld) [Volume fraction] 44.0 % 39.0 - 51.0 % [facility] Hemoglobin (Bld) [Mass/Vol] 15.1 g/dL 13.0 - 17.0 g/dL [facility] Lymphocytes (Bld) [#/Vol] 2.93 10*3/uL 1.00 - 4.00 k/uL [facility] Lymphocytes/100 WBC (Bld) 37.2 % [facility] MCH (RBC) [Entitic mass] 31.2 pg 26.0 - 34.0 pg [facility] MCHC (RBC) [Mass/Vol] 34.3 g/dL 30.5 - 36.0 g/dL [facility] MCV (RBC) [Entitic vol] 90.9 fL 80.0 - 100.0 fL [facility] Monocytes (Bld) [#/Vol] 0.83 10*3/uL <0.87 k/uL [facility] Monocytes/100 WBC (Bld) 10.5 % [facility] Neutrophils (Bld) [#/Vol] 3.74 10*3/uL 1.45 - 7.50 k/uL [facility] Neutrophils/100 WBC (Bld) 47.6 % [facility] Platelet mean volume (Bld) [Entitic vol] 9.0 fL 9.0 - 12.7 fL [facility] Platelets (Bld) [#/Vol] 356 10*3/uL 150 - 400 k/uL [facility] RBC (Bld) [#/Vol] 4.84 10*6/uL 4.20 - 6.00 m/uL [facility] WBC (Bld) [#/Vol] 7.87 10*3/uL 3.70 - 11.00 k/uL [facility] Laboratory - Chemistry and C hemistry - challengeon 03-08-2021 Ferritin [Mass/Vol] 72.5 ng/mL 30.3 - 565.7 ng/mL [facility] Iron [Mass/Vol] 189 ug/dL High 41 - 186 ug/dL [facility] Iron binding capacity [Mass/Vol] 374 ug/dL 232 - 386 ug/dL [facility] Iron saturation [Mass fraction] 51 % 15 - 57 % [facility] ED Provider Noteon 1 ED Provider Note I independently eval uated and examined the patient. Patient seen in conjunction with nurse practitioner or physician assistant men's soccer coach or resident physician. Appropriate PPE including n [...] for clarification. Jonny Monreal MD 02/27/21 1040 [facility] ED Provider Note Emergency Department Encounter [facility] ED Patient: Isidro Smith : 1965 Date of Evaluation: 02/27/2021 ED Provider: SIENNA Noyola EDcare was supervised by Dr. Monreal who independently examined and evaluated the patient. Please see their attestation note for further details. Chief Complaint Chief Complaint Patient presents with ? Laceration QAGAN TAYAGUNGIN (Location/Symptom, Timing/Onset, Context/Setting, Quality, Duration, Modifying Factors, [...] otherwise acutely negative except as in the QAGAN TAYAGUNGIN. Past History Past Medical History: Diagnosis Date [...] Gatherings with Friends and Family: ? Attends Holiness Services: ? Active Member of Clubs or [...] wound probed (more content not included)... Normal [facility] CR Chest Portableon 01-15-20 CR Chest Portable Patient Name: ISIDRO SMITH Diagnostic Radiology ACCESSION EXAM DATE/TIME PROCEDURE ORDERING PROVIDER [id number] 01/14/2021 09:05 EDT CR Chest Portable [id number] HONORIO BAILEY CPT code 84334 Reason For Exam (CR Chest Portable) L [...] Transcribed Date and Time: 01/14/2021 9:12 Normal [facility] CR Shoulder 2+ Views Lefton 01-14-2021 CR Shoulder 2+ Views Left Patient Name: ISIDRO SMITH Diagnostic Radiology ACCESSION EXAM DATE/TIME PROCEDURE ORDERING PROVIDER [id number] 01/14/2021 09:05 EDT CR Shoulder 2+ Views [id number] -HONORIO IVAN Left CPT code 32730 Reason For Exam (CR Shoulder 2+ Views [...] Transcribed Date and Time: 01/14/2021 9:11 Normal [facility] Comp Metabolic Panelon 01-14 ALP [Catalytic activity/Vol] 96 U/L Normal 38-126 [facility] Comment on above: Performed By: #### T TERESE CMP3, HEMDF #### [facility] [address], [place] ALT [Catalytic activity/Vol] 40 U/L Normal 0-49 [facility] Comment on above: Result Comment: The ALT test is performed by an updated assay method. Please note that the reference intervals have been changed and are now sex specific. Performed By: #### T TERESE CMP3, HEMDF #### [place] [address], [place] Calcium [Mass/Vol] 8.9 mg/dL Normal 8.4-10.4 [facility] Comment on above: Performed By: #### T TERESE CMP3, HEMDF #### [place] [address] [place], [place] Glucose [Mass/Vol] 110 mg/dL High 70-100 [facility] Comment on above: Performed By: #### T TERESE CMP3, HEMDF #### [place] [address] [place], [place] Protein [Mass/Vol] 7.5 g/dL Normal 6.3-8.2 [facility] Comment on above: Performed By: #### T TERESE CMP3, HEMDF #### [place] [address] [place], [place] Urea nitrogen [Mass/Vol] 19 mg/dL Normal 7-20 [facility] Comment on above: Performed By: #### T TERESE CMP3, HEMDF #### [place] [address] [place], [place] Anion gap [Moles/Vol] 8 mmol/L Normal 3-13 [facility] Comment on above: Performed By: #### T ROPN, CMP3, HEMDF #### [place] [address] [place], [place] AST [Catalytic activity/Vol] 45 U/L Normal 15-46 [facility] Comment on above: Performed By: #### T KINGSLEYN CMP3, HEMDF #### [place] [address] [place], [place] Bilirubin [Mass/Vol] 0.7 mg/dL Normal 0.2-1.3 [facility] Comment on above: Performed By: #### T IVET GUDINO, HEMDF #### [facility] [address], [place] CO2 [Moles/Vol] 20 mmol/L Low 22-30 [facility] Comment on above: Performed By: #### T IVET GUDINO, HEMDF #### [facility] [address], [place] Creatinine [Mass/Vol] 0.64 mg/dL Normal 0.52-1.25 [facility] Comment on above: Performed By: #### T IVET GUDINO, HEMDF #### [place] [address], [place] eGFR OTHER > 90.0 Normal >60 [facility] Comment on above: Result Comment: KDIG O [...] By: #### T IVET GUDINO, HEMDF #### [facility] [address], [place] GFR/1.73 sq M.predicted among blacks MDRD (S/P/Bld) [Vol rate/Area] mL/min/{1.73_m2} Normal >60 [facility] Comment on above: Performed By: #### T IVET GUDINO, HEMDF #### [facility] [address], [place] Chloride [Moles/Vol] 110 mmol/L High 98-107 [facility] Comment on above: Performed By: #### T KENY GUDINO3, HEMDF #### [facility] [address], [place] Potassium [Moles/Vol] 4.4 mmol/L Normal 3.5-5.1 [facility] Comment on above: Performed By: #### T IVET GUDINO, HEMDF #### [facility] [address], [place] Sodium [Moles/Vol] 139 mmol/L Normal 135-145 [facility] Comment on above: Performed By: #### T IVET GUDINO, HEMDF #### [place] [address] [place], [place] Albumin [Mass/Vol] 4.1 g/dL Normal 3.5-5.0 [facility] Comment on above: Performed By: #### T IVET GUDINO, HEMDF #### [place] [address] [place], [place] Complete Urinalysison 2020 Appearance (U) Clear Normal Clear [facility] Comment on above: Result Comment: . Performed By: #### C UA2 #### [place] [address] [place], [place] Bilirubin,Urine Negative Normal Negative [facility] Comment on above: Result Comment: . Performed By: #### C UA2 #### [place] [address] [place], [place] Color (U) Yellow Normal Lt. Yellow [facility] Comment on above: Result Comment: . Performed By: #### C UA2 #### [place] [address] [place], [place] Glucose Ql (U) Normal Normal Normal (<70) [facility] Comment on above: Result Comment: . Performed By: #### C UA2 #### [place] [address] [place], [place] Ketone,Urine Negative Normal Negative [facility] Comment on above: Result Comment: . Performed By: #### C UA2 #### [facility] [address], [place] Leukocytes,Urine Negative Normal Negative [facility] Comment on above: Result Comment: . Performed By: #### C UA2 #### [facility] [address], [place] Nitrites,Urine Negative Normal Negative [facility] Comment on above: Result Comment: . Performed By: #### C UA2 #### [place] [address] [place], [place] Occult Blood,Urine Negative Normal Negative [facility] Comment on above: Result Comment: . Performed By: #### C UA2 #### [place] [address] [place], [place] pH,Urine 6.5 Normal 5.0-8.0 [facility] [employer] Comment on above: Result Comment: . Performed By: #### C UA2 #### [place] [address], [place] Specific [place],Urine 1.019 Normal 1.005 - 1.030 [facility] [employer] Comment on above: Result Comment: . Performed By: #### C UA2 #### [place] [address] [place], [place] Total Protein,Urine Negative Normal Negative [facility] Comment on above: Result Comment: . Performed By: #### C UA2 #### [place] [address] [place], [place] Urobilinogen,Urine 2 mg/dL Abnormal Normal (0-1) [facility] Comment on above: Result Comment: . Performed By: #### C UA2 #### [place] [address], [place] ED Provider Noteon ED Provider Note Emergency Department Encounter [facility] EMERGENCY DEPT Patient: Isidro Smith : 1965 Date of Evaluation: 01/14/2021 ED Supervising Physician: Ana Marques MD I independently examined and evaluated Isidro Smith. In brief, Isidro Simth is a 55 y.o. male that presents [...] hemarthroses. We discussed his care with his Lyle general data modeling architect, who agree patient does not likely need [...] [employer] Ana Marques MD 01/14/21 1602 [facility] ED Provider Note Emergency Department Encounter [facility] Patient: Isidro Smith : [...] he has factor 9 deficiency, went to [facility] last night, recently had bleed in lower abd a week ago. QAGAN TAYAGUNGIN I was wearing a N95 mask, gloves, surgical mask for the entirety of this encounter. Does this patient come from an ECF, SNF, Rehab, Penitentiary or other Congregate setting: no (If yes [...] Patient states that he was seen at [facility] for this last night. States that they [...] otherwise acutely negative except as in the QAGAN TAYAGUNGIN. Past History Past Medical History: Diagnosis Date [...] Gatherings with Friends and Family: ? Attends Holiness Services: ? Active Member of Clubs or [...] rales. Abd (more content not included)... [facility] Autodiffon [facility]14 Abs Baso Cnt 0.1 10*3/uL Normal 0.0-0.2 [facility] [facility] Comment on above: Performed By: #### T ROPN, CMP3, HEMDF #### [facility] [address], [place] Abs Neutrophile Cnt 4.5 10*3/uL Normal 1.8-7.0 [facility] Comment on above: Performed By: #### T ROPN, CMP3, HEMDF #### [place] [address] [place], [place] Basophils/100 WBC (Bld) 0.8 % Normal 0.0-2.0 [facility] Comment on above: Performed By: #### T ROPN, CMP3, HEMDF #### [place] [address] [place], [place] Eosinophils (Bld) [#/Vol] 0.4 10*3/uL Normal 0.0-0.5 [facility] Comment on above: Performed By: #### T ROPN, CMP3, HEMDF #### [place] [address] [place], [place] Eosinophils/100 WBC (Bld) 4.7 % Normal 1.0-6.0 [facility] Comment on above: Performed By: #### T ROPN, CMP3, HEMDF #### [place] [address] [place], [place] Erythrocyte distribution width (RBC) [Ratio] 19.7 % High 11.5-14.5 [facility] Comment on above: Performed By: #### T ROPN, CMP3, HEMDF #### [place] [address] [place], [place] Granulocytes/100 WBC (Bld) 53.2 % Normal 40.0-80.0 [facility] Comment on above: Performed By: #### T ROPN, CMP3, HEMDF #### [place] [address] [place], [place] Hematocrit (Bld) [Volume fraction] 41.9 % Normal 40.0-52.0 [facility] Comment on above: Performed By: #### T ROPN, CMP3, HEMDF #### [place] [address] [place] [address] Hemoglobin (Bld) [Mass/Vol] 13.7 g/dL Normal 13.0-18.0 [facility] Comment on above: Performed By: #### IVET MURRAY, HEMDF #### [facility] [address], [place] Lymphocytes (Bld) [#/Vol] 2.6 10*3/uL Normal 1.0-4.3 [facility] Comment on above: Performed By: #### IVET MURRAY, HEMDF #### [place] [address] [place], [place] Lymphocytes/100 WBC (Bld) 30.8 % Normal 20.0-40.0 [facility] Comment on above: Performed By: #### IVET MURRAY, HEMDF #### [place] [address], [place] MCH (RBC) [Entitic mass] 29.7 pg Normal 26.0-34.0 [facility] Comment on above: Performed By: #### IVET MURRAY, HEMDF #### [place] [address], [place] MCHC 32.6 % Normal 32.0-36.0 [facility] Comment on above: Performed By: #### IVET MURRAY, HEMDF #### [place] [address] [place], [place] MCV (RBC) [Entitic vol] 90.9 fL Normal 80.0-98.0 [facility] Comment on above: Performed By: #### IVET MURRAY, HEMDF #### [place] [address] [place], [place] Monocytes (Bld) [#/Vol] 0.9 10*3/uL High 0.0-0.8 [facility] Comment on above: Performed By: #### Yanet GUDINO CMP3, HEMDF #### [place] [address] [place], [place] Monocytes/100 WBC (Bld) 10.5 % High 2.0-10.0 [facility] Comment on above: Performed By: #### Yanet GUDINO CMP3, HEMDF #### [facility] [address], [place] Platelet mean volume (Bld) [Entitic vol] 7.6 fL Normal 7.4-10.4 [facility] Comment on above: Performed By: #### Ynaet GUDINO CMP3, HEMDF #### [facility] [address], [place] Platelets (Bld) [#/Vol] 524 10*3/uL High 140-440 [facility] Comment on above: Performed By: #### Yanet GUDINO CMP3, HEMDF #### [place] [address] [place], [place] RBC (Bld) [#/Vol] 4.61 10*6/uL Normal 4.40-5.90 [facility] Comment on above: Performed By: #### Yanet GUDINO CMP3, HEMDF #### [place] [address] [place], [place] WBC (Bld) [#/Vol] 8.5 10*3/uL Normal 3.6-10.7 [facility] Comment on above: Performed By: #### Yanet GUDINO CMP3, HEMDF #### [place] [address] [place], [place] Troponin Ion 01-14-2021 Troponin I.cardiac [Mass/Vol] ng/mL Normal 0.000-0.03 4 [facility] Comment on above: Result Comment: . Performed By: #### Yanet GUDINO CMP3, HEMDF #### [place] [address] [place], [place] CBC W Auto Differential pane l (Bld)on 10-17-2020 Basophils (Bld) [#/Vol] 0.05 10*3/uL <0.11 k/uL [facility] Basophils/100 WBC (Bld) 0.6 % [facility] Differential cell count method Nom (Bld) Auto [facility] Eosinophils (Bld) [#/Vol] 0.43 10*3/uL <0.46 k/uL [facility] Eosinophils/100 WBC (Bld) 5.3 % [facility] Erythrocyte distribution width (RBC) [Ratio] 20.3 % High 11.5 - 15.0 % [facility] Hematocrit (Bld) [Volume fraction] 33.2 % Low 39.0 - 51.0 % [facility] Hemoglobin (Bld) [Mass/Vol] 10.2 g/dL Low 13.0 - 17.0 g/dL [facility] Lymphocytes (Bld) [#/Vol] 2.49 10*3/uL 1.00 - 4.00 k/uL [facility] Lymphocytes/100 WBC (Bld) 30.5 % [facility] MCH (RBC) [Entitic mass] 24.6 pg Low 26.0 - 34.0 pg [facility] MCHC (RBC) [Mass/Vol] 30.7 g/dL 30.5 - 36.0 g/dL [facility] MCV (RBC) [Entitic vol] 80.2 fL 80.0 - 100.0 fL [facility] Monocytes (Bld) [#/Vol] 0.78 10*3/uL <0.87 k/uL [facility] Monocytes/100 WBC (Bld) 9.6 % [facility] Neutrophils (Bld) [#/Vol] 4.41 10*3/uL 1.45 - 7.50 k/uL [facility] Neutrophils/100 WBC (Bld) 54.0 % [facility] Platelet mean volume (Bld) [Entitic vol] 8.9 fL Low 9.0 - 12.7 fL [facility] Platelets (Bld) [#/Vol] 576 10*3/uL High 150 - 400 k/uL [facility] RBC (Bld) [#/Vol] 4.14 10*6/uL Low 4.20 - 6.00 m/uL [facility] WBC (Bld) [#/Vol] 8.16 10*3/uL 3.70 - 11.00 k/uL [facility] Laboratory - Chemistry and C hemistry - challengeon 10-17-2020 Ferritin [Mass/Vol] 78.9 ng/mL 30.3 - 565.7 ng/mL [facility] Iron [Mass/Vol] 41 ug/dL 41 - 186 ug/dL [facility] Iron binding capacity [Mass/Vol] 492 ug/dL High 232 - 386 ug/dL [facility] Iron saturation [Mass fraction] 8 % Low 15 - 57 % [facility] XR WRIST 4V PA/LAT/OBL/SCAPH LTon 08-14-2020 XR [...] fifth metacarpal. Mild diffuse soft tissue swelling. Document Management Technician: PSCB Transcribe Date/Time: Aug 14 2020 4:06P Dictated by : ISELA NAGY MD This examination was interpreted and the report reviewed and electronically signed by: ISELA NAGY MD on Aug 14 2020 4:10PM EST Normal [facility] CT CHEST W IVCONon CT CHEST W IVCON Final Report DATE OF EXAM: Jul 29 2020 9:54PM [facility] 0539 - CT CHEST W IVCON / [...] upper ribs. Upper abdomen: No significant abnormalities. Stud Sheep Farmer (topogram) images: No additional findings. IMPRESSION: 1. Nondisplaced fractures of the left third through seventh ribs. 2. No additional acute process or posttraumatic injury identified. Document Management Technician: PSCB Transcribe Date/Time: Jul 29 2020 9:56P Dictated by : MARIA ISABEL MCGREGOR MD This examination was interpreted and the report reviewed and electronically signed by: MARIA ISABEL MCGREGOR MD on Jul 29 2020 10:10PM EST Normal [facility] XR RIB/CHST 3V AP RIB/OBL/CH ST Kana [...] pain. 2. No acute displaced rib fracture. Document Management Technician: PSCB Transcribe Date/Time: Jul 29 2020 9:04P Dictated by : NIMISHA WHITE MD This examination was interpreted and the report reviewed and electronically signed by: NIMISHA WHITE MD on Jul 29 2020 9:11PM EST Normal [facility] CBC W/DIFFon 01-02-2017 BAND % 3.0 % Normal 0-7 [facility] Comment on above: Order Comment: Latasha s: M Performed By: #### L 200.37050 ####[facility] [id number] [place] [address]# [phone] BAND ABS 0.25 K/CU MM Normal [facility] Comment on above: Order Comment: Johanu s: M Performed By: #### L 200.08262 ####[facility] S[address] [place] [address]# [phone] BASO ABS 0.17 K/CU MM Normal 0-0.2 [facility] Comment on above: Order Comment: Johanu s: M Performed By: #### L 200.77718 ####[facility] [id number] [place] [address]# [phone] Basophils/100 WBC Auto (Bld) 2.0 % Normal 0-2 [facility] Comment on above: Order Comment: Johanu s: M Performed By: #### L 200.03484 ####[facility] GY[address] [place] [address]# [phone] EOS ABS 0.83 K/CU MM High 0-0.5 [facility] Comment on above: Order Comment: Johanu s: M Performed By: #### L 200.07282 ####[facility] [address] [place], [place] [address]Aw# [phone] Eosinophils/100 leukocytes 10.0 % High 0-5 [facility] Comment on above: Order Comment: Campu s: M Performed By: #### L 200.87647 ####[facility] NZUNGSCUQ[address] [place], [place] [address]Jy# [phone] Lymphocytes 3.40 K/CU MM Normal 0.9-4.4 [facility] Comment on above: Order Comment: Campu s: M Performed By: #### L 200.97452 ####[facility] [id number] [place], [place] [address]Ph# [phone] Lymphocytes/100 leukocytes 41.0 % High 20-40 [facility] Comment on above: Order Comment: Campu s: M Performed By: #### L 200.66529 ####[facility] [id number] [place], [place] [address]Ph# [phone] MONO ABS 0.50 K/CU MM Normal 0.1-1.1 [facility] Comment on above: Order Comment: Campu s: M Performed By: #### L 200.55269 ####[facility] [address]FV[address]YS[address] [place], [place] [address]Ig# [phone] Monocytes/100 leukocytes 6.0 % Normal 2-10 [facility] Comment [facility] above: Order Comment: Campu s: M Performed By: #### L 200.86011 ####[facility] [id number] [place], [place] [address]Nh# [phone] Neutrophils 3.15 K/CU MM Normal 2.0-8.3 [facility] Comment on above: Order Comment: Campu s: M Performed By: #### L 200.48637 ####[facility] [id number] [place] [address]Pi# [phone] Neutrophils/100 WBC Auto (Bld) 38.0 % Low 45-75 [facility] Comment on above: Order Comment: Campu s: M Performed By: #### L 200.30640 ####[facility] SUNE[address]YR[address] [place], [place] [address]Ha# [phone] PLT EST SLT INCREASED Normal [facility] Comment on above: Order Comment: Campu s: M Performed By: #### L 200.21963 ####[facility] [id number] [place] [address]Wt# [phone] POLY 1+ Normal [facility] Comment on above: Order Comment: Campu s: M Performed By: #### L 200.16093 ####[facility] [id number] [place] [address]Px# [phone] Erythrocyte distribution width Auto Ratio (RBC) 17.3 % High 11-14.5 [facility] Comment on above: Order Comment: Campu s: M Performed By: #### L 200.42047 ####[facility] [id number] [place] [address]Vt# [phone] Erythrocytes (RBC) 3.35 M/CU MM Low 4.50-6.00 [facility] Comment on above: Order Comment: Campu s: M Performed By: #### L 200.10409 ####[facility] RQBLLESCUY[address] [place], [place] [address]Ri# [phone] Erythrocytes (RBC) 0.6 % Normal Less than 1 [facility] Comment on above: Order Comment: Campu s: M Performed By: #### L 200.84397 ####[facility] OIPLMBP[address] [place], [place] [address]Li# [phone] Hematocrit (HCT) 31.9 % Low 41.0-53.0 [facility] Comment on above: Order Comment: Campu s: M Performed By: #### L 200.58262 ####[facility] QGGPVRWNMS[address]72 [place], [place] [address]It# [phone] Hemoglobin mass conc (Bld) 10.5 g/dL Low 13.5-17.5 [facility] Comment on above: Order Comment: Campu s: M Performed By: #### L 200.77824 ####[facility] JTCYTIUMSE4177 [place], [place] [address]Ti# [phone] MCHC mass conc (RBC) 32.9 g/dL Normal 32.0-36.0 [facility] Comment on above: Order Comment: Campu s: M Performed By: #### L 200.43387 ####[facility] [id number] [place] [address]Ck# [phone] MCV 95.2 fL Normal 80.0-99.0 [facility] Comment on above: Order Comment: Campu s: M Performed By: #### L 200.75714 ####[facility] [id number] [place] [address]Lq# [phone] Platelet mean volume (PMV) 9.1 fL Low 9.4-12.4 [facility] Comment on above: Order Comment: Campu s: M Performed By: #### L 200.14924 ####[facility] [id number] [place] [address]Aq# [phone] Platelets 599 K/CU MM High 150-450 [facility] Comment on above: Order Comment: Campu s: M Performed By: #### L 200.04295 ####[facility] [id number] [place] [address]Cq# [phone] WBC (Leukocytes) 8.3 K/CU MM Normal 4.5-11.0 [facility] Comment on above: Order Comment: Campu s: M Performed By: #### L 200.90105 ####[facility] [id number] [place] [address]Ns# [phone] CMPon 01-02-2017 Alanine aminotransferase (ALT) 31 U/L Normal 13-61 [facility] Comment on above: Order Comment: Campu s: M Performed By: #### L 300.07345 ####[facility] [id number] [place] [address]Rb# [phone] Albumin 2.5 g/dL Low 3.2-5.0 [facility] Comment on above: Order Comment: Campu s: M Performed By: #### L 300.99646 ####[facility] PAXKFBKVVN9753 [place], [place] [address]Rh# [phone] Albumin/Globulin Ratio 0.9 {ratio} Normal 0.8-2.0 [facility] Comment on above: Order Comment: Campu s: M Performed By: #### L 300.62612 ####[facility] [id number] [place] [address]Ul# [phone] ALK PHOS 93 U/L Normal 45-117 [facility] Comment on above: Order Comment: Campu s: M Performed By: #### L 300.74130 ####[facility] [id number] [place] [address]Lq# [phone] Anion gap 8 mmol/L Normal 5-16 [facility] Comment on above: Order Comment: Campu s: M Performed By: #### L 300.17679 ####[facility] [id number] [place] [address]Pz# [phone] BILI TOTAL 0.4 MG/DL Normal 0.2-1.0 [facility] Comment on above: Order Comment: Campu s: M Performed By: #### L 300.52435 ####[facility] [id number] [place] [address]Og# [phone] BUN/Creatinine Ratio 12 mg/mg Low 15-24 [facility] Comment on above: Order Comment: Campu s: M Performed By: #### L 300.55475 ####[facility] [id number] [place] [address]Ms# [phone] Calcium 8.1 mg/dL Low 8.5-10.1 [facility] Comment on above: Order Comment: Campu s: M Performed By: #### L 300.89942 ####[facility] KDCDPYIRVJ3252 [place], [place] [address]Pf# [phone] Chloride 111 mmol/L High 98-107 [facility] Comment on above: Order Comment: Campu s: M Performed By: #### L 300.47937 ####[facility] LOLATRMTEX0561 [place], [place] [address]Of# [phone] CO2 24 mmol/L Normal 21-32 [facility] Comment on above: Order Comment: Campu s: M Performed By: #### L 300.72584 ####[facility] [id number] [place], [place] [address]Aj# [phone] Creatinine 0.734 mg/dL Normal 0.670-1.17 0 [facility] Comment on above: Order Comment: Campu s: M Result Comment: Joselyn ents receiving either N-Acetylcysteine (NAC) orMetamizole prior to venipuncture, may have falsely depressedresults. Performed By: #### L 300.32766 ####[facility] FEQMTOASRL4948 [place], [place] [address]Fz# [phone] Globulin 2.9 g/dL Normal 2.2-4.2 [facility] Comment on above: Order Comment: Campu s: M Performed By: #### L 300.80534 ####[facility] DLBZCXXOPW1371 [place], [place] [address]Ih# [phone] Glucose mass conc 92 mg/dL Normal 70-100 [facility] Comment on above: Order Comment: Campu s: M Result Comment: 70-1 00-Normal Fasting; [phone]-Oyljruls Fasting; greaterthan 126 on more than one result-Diabetes. ADA guidelines Performed By: #### L 300.63947 ####[facility] FVACSIGRCQ4824 [place], [place] [address]Va# [phone] Potassium molar conc 4.6 mmol/L Normal 3.5-5.1 [facility] Comment on above: Order Comment: Campu s: M Performed By: #### L 300.56030 ####[facility] TSEALBMDXZ7316 [place], [place] [address]Po# [phone] Protein 5.4 g/dL Low 6.0-8.5 [facility] Comment on above: Order Comment: Campu s: M Performed By: #### L 300.07150 ####[facility] PYDYMBADDS4577 [place], [place] [address]Zv# [phone] SGOT (AST) 34 U/L Normal 8-34 [facility] Comment on above: Order Comment: Campu s: M Performed By: #### L 300.34448 ####[facility] EXSIQBAJGT2267 [place], [place] [address]Hw# [phone] Sodium 143 mmol/L Normal 136-145 [facility] Comment on above: Order Comment: Campu s: M Performed By: #### L 300.18508 ####[facility] QGSHZXWVXO4945 [place], [place] [address]Aj# [phone] Urea nitrogen 9 mg/dL Normal 7-26 [facility] Comment on above: Order Comment: Campu s: M Performed By: #### L 300.08718 ####[facility] [id number] [place] [address] 14898Pu# [phone] DISCH.SUMon 01-02-2017 DISCH.SUM [facility] Patient Name: ISIDRO SMITH [id number] [facility] NW Date of : [address] [place] [address] Unit Number: [id number] Number: [id number] Summary Patient Status: ADM INAttending Doctor: Giselle Alfaro DOService Date: 01/02/17 1755Discharge SummaryAnticipated Discharge Date 01/02/17Hospital [facility]48Y w/ h/o Hemophilia B, periportal, mesenteric, and [...] Nausea/VomitingCitalopram Hydrobromide* (celeXA 20MG TAB*) 20 MG [id number] MILLIGRAM ORAL EVERY DAYhydrOXYzine PAMOATE* (Vistaril 50MG Cap*) 50 MG SRLFEZV68 MILLIGRAM ORAL FOUR TIMES DAILYTiZANidine HCL* (Zanaflex 4MG Tab*) 4 MG TABLET4 MILLIGRAM ORAL EVERY 6 HOURS NEEDED as needed for MUSCLE PAINBuprenorphine HCl* (Subutex tab.sl*) 2 MG TAB.SUBL2 MILLIGRAM SUBLINGUAL EVERY DAYPantoprazole* (Protonix 40MG Tab*) 40 MG TABLET.DR40 MILLIGRAM ORAL TWICE A DAY BEFORE MEALSGabapentin* (Neurontin 300MG Cap*) 300 MG [id number] MILLIGRAM ORAL 3 TIMES DAILYDisclaimerThis dictation was created using voice recognition software.Phonetic and/or minor grammatical errors may exist.eSign Date and TimeAditya Claire DO [facility] Discharge Summary This is a preliminar y report only, as the practitioner review and authentication has not occurred. [facility] GFR ESTon 01-02-2017 IF AMER Greater than 60 [facility] Comment on above: Order Comment: Latasha s: M Performed By: #### L 500.49185, L500.20529 ####[facility] BRGDFCEUNL6093 [place], [place] [address]An# [phone] IF non-AFR AMER Greater than 60 [facility] Comment on above: Order Comment: Latasha s: M Performed By: #### L 500.37254, L500.60054 ####[facility] CFAOVYOUHJ2675 [place], [place] [address]Yv# [phone] BMPon 01-01-2017 Anion gap 6 mmol/L Normal 5-16 [facility] Comment on above: Order Comment: Campu s: M Performed By: #### L 300.47687 ####[facility] CBLUKRKQJN5792 [place], [place] [address]Ds# [phone] BUN/Creatinine Ratio 11 mg/mg Low 15-24 [facility] Comment on above: Order Comment: Campu s: M Performed By: #### L 300.18782 ####[facility] LUQRIRKFWF9539 [place], [place] [address]Xe# [phone] Calcium 8.6 mg/dL Normal 8.5-10.1 [facility] Comment on above: Order Comment: Campu s: M Performed By: #### L 300.40773 ####[facility] KVTTXAJGXH[address] [place] [address]Pq# [phone] Chloride 107 mmol/L Normal 98-107 [facility] Comment on above: Order Comment: Campu s: M Performed By: #### L 300.66668 ####[facility] [id number] [place] [address] 668[address]Nt# [phone] CO2 26 mmol/L Normal 21-32 [facility] Comment on above: Order Comment: Campu s: M Performed By: #### L 300.81951 ####[facility] NUJXNJHUIH5117 [place], [place] [address]Jo# [phone] Creatinine 0.832 mg/dL Normal 0.670-1.17 0 [facility] Comment on above: Order Comment: Campu s: M Result Comment: Joselyn ents receiving either N-Acetylcysteine (NAC) orMetamizole prior to venipuncture, may have falsely depressedresults. Performed By: #### L 300.44914 ####[facility] KJQSSTMMJE2280 [place], [place] [address]Vn# [phone] Glucose mass conc 87 mg/dL Normal 70-100 [facility] Comment on above: Order Comment: Campu s: M Result Comment: 70-1 00-Normal Fasting; [phone]-Hgyocycz Fasting; greaterthan 126 on more than one result-Diabetes. ADA guidelines Performed By: #### L 300.84617 ####[facility] JQIRAQTYJE2258 [place], [place] [address]Bw# [phone] Potassium molar conc 4.8 mmol/L Normal 3.5-5.1 [facility] Comment on above: Order Comment: Campu s: M Performed By: #### L 300.36575 ####[facility] KGJDJMCQJY[address] [place] [address]Np# [phone] Sodium 139 mmol/L Normal 136-145 [facility] Comment on above: Order Comment: Campu s: M Performed By: #### L 300.95458 ####[address] [address]Ao# [phone] Urea nitrogen 9 mg/dL Normal 7-26 [facility] Comment on above: Order Comment: Campu s: M Performed By: #### L 300.19158 ####[facility] [id number] [place] [address] 450[address]Tc# [phone] CBC W/DIFFon 01-01-2017 BAND % 4.0 % Normal 0-7 [facility] Comment on above: Order Comment: Campu s: M Performed By: #### L 300.01431 ####[facility] PBZCHVFVDR7[address] [place] [address]Js# [phone] BAND ABS 0.41 K/CU MM Normal [facility] Comment on above: Order Comment: Campu s: M Performed By: #### L 300.50793 ####[facility] XQATRVUTCF[address] [place] [address]Or# [phone] EOS ABS 0.61 K/CU MM High 0-0.5 [facility] Comment on above: Order Comment: Campu s: M Performed By: #### L 300.48519 ####[facility] JFKPSYLWWN16[address] [place] [address] 267[address]Xp# [phone] Eosinophils/100 leukocytes 6.0 % High 0-5 [facility] Comment on above: Order Comment: Campu s: M Performed By: #### L 300.01989 ####[facility] FJFNTDVEPQ8053 [place], [place] [address]Je# [phone] Lymphocytes 3.67 K/CU MM Normal 0.9-4.4 [facility] Comment on above: Order Comment: Campu s: M Performed By: #### L 300.76191 ####[facility] EFWVJQHITH8729 [place], [place] [address]Qz# [phone] Lymphocytes/100 leukocytes 36.0 % Normal 20-40 [facility] Comment on above: Order Comment: Campu s: M Performed By: #### L 300.87143 ####[address] [address]Fd# [phone] MONO ABS 0.71 K/CU MM Normal 0.1-1.1 [facility] Comment on above: Order Comment: Campu s: M Performed By: #### L 300.74806 ####[address] [address]Ru# [phone] Monocytes/100 leukocytes 7.0 % Normal 2-10 [facility] Comment on above: Order Comment: Campu s: M Performed By: #### L 300.83225 ####[facility] RHCOTTKLOC[address] [place] [address]Ui# [phone] Neutrophils 4.79 K/CU MM Normal 2.0-8.3 [facility] Comment on above: Order Comment: Campu s: M Performed By: #### L 300.72694 ####[facility] QRDRLJFPZK9402 [place], [place] [address]Ug# [phone] Neutrophils/100 WBC Auto (Bld) 47.0 % Normal 45-75 [facility] Comment on above: Order Comment: Campu s: M Performed By: #### L 300.59620 ####[facility] MQUTFWFZXU6332 [place], [place] [address]Tv# [phone] PLT EST SLT INCREASED Normal [facility] Comment on above: Order Comment: Campu s: M Performed By: #### L 300.15595 ####[facility] YSMEFNMAZG[address] [place] [address]Im# [phone] POIK 1+ Normal [facility] Comment on above: Order Comment: Campu s: M Performed By: #### L 300.33568 ####[address] [address]Vm# [phone] Erythrocyte distribution width Auto Ratio (RBC) 17.3 % High 11-14.5 [facility] Comment on above: Order Comment: Campu s: M Performed By: #### L 300.04409 ####[address] [address]Lg# [phone] Erythrocytes (RBC) 3.50 M/CU MM Low 4.50-6.00 [facility] Comment [facility]: Order Comment: Campu s: M Performed By: #### L 300.58466 ####[address] [address]Cg# [phone] Erythrocytes (RBC) 0.4 % Normal Less than 1 [facility] Comment on above: Order Comment: Campu s: M Performed By: #### L 300.44216 ####[facility] BSXIXZXMCZ[address] [place] [address]Qe# [phone] Hematocrit (HCT) 33.5 % Low 41.0-53.0 [facility] Comment on above: Order Comment: Campu s: M Performed By: #### L 300.76932 ####[facility] BHQTDWXTVA7517[address] [place] [address]Zc# [phone] Hemoglobin mass conc (Bld) 10.8 g/dL Low 13.5-17.5 [facility] Comment on above: Order Comment: Campu s: M Performed By: #### L 300.74741 ####[facility] QXKLGKBRQG6752 [place], [place] [address]Up# [phone] MCHC mass conc (RBC) 32.2 g/dL Normal 32.0-36.0 [facility] Comment on above: Order Comment: Campu s: M Performed By: #### L 300.22853 ####[facility] DFPHCTHHEG0773 [place], [place] [address]Rh# [phone] MCV 95.7 fL Normal 80.0-99.0 [facility] Comment on above: Order Comment: Campu s: M Performed By: #### L 300.41985 ####[address] [address]Wr# [phone] Platelet mean volume (PMV) 8.7 fL Low 9.4-12.4 [facility] Comment on above: Order Comment: Campu s: M Performed By: #### L 300.64440 ####[facility] ECWBTNGOZA[address] [place] [address]Ff# [phone] Platelets 575 K/CU MM High 150-450 [facility] Comment on above: Order Comment: Campu s: M Performed By: #### L 300.36240 ####[place] [address] [place], [place] [address]Yx# [phone] WBC (Leukocytes) 10.2 K/CU MM Normal 4.5-11.0 [facility] Comment on above: Order Comment: Campu s: M Performed By: #### L 300.68852 ####[facility] ZBGMKWTXQM[address] [place] [address]Qb# [phone] CRon 01-01-2017 CONSULTATION REPORT This is a preliminar y report only, as the practitioner review and authentication has not occurred. Normal [facility] CR DATE OF SERVICE: 01/02/2017CARDIOLOGY CONSULTATIONREFERRING PHYSICIAN: .HISTORY OF PRESENT ILLNESS: The patient is a very pleasant 51-year-old gentleman whoI have never seen before who has no known cardiac abnormality. He does have ahistory of recovering heroin addiction and is on replacement therapy. He was just [facility] with a significant GI bleed and underwent [...] the 40s. He subsequently was brought to [facility] where his heart rate was found to be 52 beats per minute with asystolic pressure of 91 mmHg. [facility] now given IV fluids, and his [...] milliseconds. CT of the abdomen is as [facility] PATIENT NAME: ISIDRO SMITH [address] [facility] MEDICAL REC #: [id number], [place] [address] DATE: 01/01/17DISCHARGE DATE: 01/02/17CONSULTATION REPORT ATTENDING PHY: [...] reason he cannot gohome. S Mario Lizarraga MD/[id number]: 01/02/2017 12:49DT: 01/02/2017 17:47SSI File#: [id number] #: [id number] [facility] PATIENT NAME: ISIDRO SMITH M[address] [facility] [address] [place] MEDICAL REC #: [id number], [place] [address] DATE: 01/01/17DISCHARGE DATE: 01/02/17CONSULTATION REPORT ATTENDING PHY: Aditya Claire DO Normal [facility] ED DOCon 01-01-2017 ED DOC PHYSICIAN ASSESSMENT DEMOGRAPHI CS Emergiso ft Patient: ISIDRO SMITHSex: MDOB: 1965Age: 51 yrAccount No: [id number]: [id number] Date: 01/01/2017Address: [address] SWAddress: [place] [address] JDGNG TRATION ED Number: [id number]: Marital Status: MFinancial Class: SELF TRIAGE Priority: 3 - UrgentComplaint: Back Pain, Non TraumaticStated Complaint: Recent admission here forhypotension, GI bleed, and anemia. Here today due to lowback pain with fatigue. Appears pale at triage.Arrival Date: 01/01/2017 11:27Triage Date: 01/01/2017 11:33Mode of Arrival: *Privately Owned VehicleTransfer From: * HomeWC: NLanguage: Central African BED ST E In: 01/01/2017 11:39:06 01/01/201711:39:[address] [facility] PATIENT NAME: ISIDRO SMITH M1320 [facility] REC #: [id number], [place] [address] DEPARTMENT CHART EMERGENCY DEPARTMENT PHYSICIANST E (Removed [...] same as last visit 01/01/17 01/01/201714:06 KKKILLNESS [facility] PATIENT NAME: ISIDRO SMITH M[address] [facility] [address] [place] MEDICAL REC #: [id number], [place] [address] DEPARTMENT CHART EMERGENCY DEPARTMENT PHYSICIANIllness: Other Medical fjvxdxuuewk87/05/2017 11:39 RANIllness: Other Medical buppiuzudv18/05/2017 11:39 RANIllness: Other Medical GI bleed01/01/2017 11:39 RANIllness: Other Medical quzrwd0401/01/2017 11:39 RANIllness: Chronic Pains back 01/01/2017 11:39 RANIllness: factor 9 defiency 01/01/2017 11:39 RANPAST SURGERY HISTSurgery: spleenectomy 01/01/2017 11:39 RANSurgery: sub total colectomy 01/01/2017 11:39 RANSurgery: fx wrist repair 01/01/2017 11:39 RANSurgery: scoped both knees 01/01/2017 11:39 RANPAST SOCIAL HISTSocial History: Behavior age appropriate 01/01/201711:39 RANSocial History: Communicates without /05/2017 11:39 RANSocial History: Lives with family or significant other01/01/2017 11:39 RANSocial History: Alcohol - Occasional- 01/01/201711:39 RANSocial History: Smoker-1/2 PPD 01/01/2017 11:39 RANSocial History: Have you traveled in the past month?Where no 01/01/2017 11:39 RANIMMUNIZATIONSImmunization: *Not Applicable 01/01/2017 11:[address] [facility] PATIENT NAME: ISIDRO SMITH M13[address] [facility] REC #: [id number], [place] [address] DEPARTMENT CHART EMERGENCY DEPARTMENT PHYSICIAN N URSING [...] breathing easy, lungsclear, no signs of distress. telemetry monitor placed, showsinus bradycardia, denies chest pain. abdomen [...] - Allergy Band onPt. 01/01/2017 14:[address] [facility] PATIENT NAME: ISIDRO SMITH M1320 [address] [facility] REC #: [id number], [place] [address] DEPARTMENT CHART EMERGENCY DEPARTMENT DEYYPYNXS19/05/2017 14:06 Patient Interaction - Call lightplaced within reach. 01/01/2017 14:07 KKK01/01/2017 14:06 Patient Interaction - Cotton Seed Culler/Pulse ox/ BP cuff applied 01/01/2017 14:07 KKK01/01/2017 14:06 Patient Interaction - Introduce selfto Patient. 01/01/2017 14:07 KKK01/01/2017 14:06 Patient Interaction - Name Band on Pt01/01/2017 14:07 KKK01/01/2017 14:06 Primary DOC Guide - A. 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 NoTotal Psychosocial Assessment Score 0 [facility] PATIENT NAME: IISDRO SMITH M[address] [facility] [address] [place] MEDICAL REC #: [id number], [place] [address] DEPARTMENT CHART EMERGENCY DEPARTMENT PHYSICIANOver the last [...] wo via gravity I AND O VITALS [facility] PATIENT NAME: ISIDRO SMITH M13[address] [facility] MEDICAL REC #: [id number], [place] [address] DEPARTMENT CHART EMERGENCY DEPARTMENT PHYSICIAN V S-ROUTINE Time: 01/01/2017 11:33B/P: 96/50 - Right Upper Arm - Sitting - MachinePulse: 64 - Cotton Seed Culler Resp: 17Sa02: 96 Room Air Temp: 98.00 [...] 01/01/2017 14:04KKKVS-Notes Time: 01/01/2017 14:04 map 63- jtkmmboq08/05/2017 14:[address] [facility] PATIENT NAME: ISIDRO SMITH M[address] [facility] REC #: [id number], [place] [address] DEPARTMENT CHART EMERGENCY DEPARTMENT PHYSICIANVS-ROUTINE Time: 01/01/2017 [...] 01/01/2017 15:31KKKVS-Notes Time: 01/01/2017 14:51 map 73 07/05/518238:31 KKKVS-ROUTINE Time: 01/01/2017 16:51B/P: 94/64 - Left [...] 14:49EKG and most recent EKG 01/01/2017 14:31N/A [facility] PATIENT NAME: ISIDRO SMITH M[address] [facility] [address] [place] MEDICAL REC #: [id number], [place] [address] DEPARTMENT CHART EMERGENCY DEPARTMENT PHYSICIANOrdered: 01/01/2017 14:25 [...] unable to void in 30 mins) 01/01/201713:05 [facility] PATIENT NAME: ISIDRO SMITH M[address] [facility] [address] [place] MEDICAL REC #: [id number], [place] [address] DEPARTMENT CHART EMERGENCY DEPARTMENT PHYSICIANN/AOrdered: 01/01/2017 11:43 [...] 17:46Type: *Admission to FloorCondition: Stable for admission/discharge/transferaf [facility] emergency evaluation/treatment Category: *NOTAPPLICABLEConcurred: 01/01/2017 17:13 Referral:01/01/2017 16:49Admit To: *Bed Type - TelemetryAdmit Physician: Kerry Hallists ==PRESCRIPTIONS CHAR ES 0.9% NS 1000cc bag QTY @ 1 01/01/2017 14:18 KKKAuto Generated Charge SIGN ATURE Winston Lew EMT-P Heath [place] [facility] PATIENT NAME: ISIDRO SMITH M1320 [address] Bond MEDICAL REC #: [id number], [place] [address] DEPARTMENT CHART EMERGENCY DEPARTMENT PHYSICIANElias MACEDO [facility] SINGHLIAM Babcock PA-C ALB [facility] PATIENT NAME: ISIDRO SMITH M13[address] [facility] MEDICAL REC #: [id number], [place] [address] DEPARTMENT CHART EMERGENCY DEPARTMENT PHYSICIAN [facility] ED Documentation This is a preliminar y report only, as the practitioner review and authentication has not occurred. [facility] EKGon 01-01-2017 EKG Procedure Date [...] Overread By: Cristine PEREZ M.D.FACC CastilloDDandT: 01/01/17 1429TDandT:[facility] PATIENT NAME: ISIDRO SMITH [facility] MEDICAL REC #: [id number], [place] [address] DATE: 01/01/17DISCHARGE DATE:ATTENDING PHY: Giselle Alfaro DOELECTROCARDIOGRAM REPORTCLBcc:[facility] PATIENT NAME: ISIDRO SMITH [address] MEDICAL REC #: [id number], [place] [address] DATE: 01/01/17DISCHARGE DATE:ATTENDING PHY: Giselle Alfaro DOELECTROCARDIOGRAM REPORT Normal [facility] ELECTROCARDIOGRAM REPORT [facility] GFR ESTon 01-01-2017 IF AMER Greater than 60 Normal [facility] Comment on above: Order Comment: Latasha s: Basia Performed By: #### L 300.60059 ####[facility] HYHADQPTIL3819 [place], [place] [address]Ej# [phone] IF non-AFR AMER Greater than 60 Normal [facility] Comment on above: Order Comment: Latasha s: M Performed By: #### L 300.71849 ####[facility] BNEDYSKHXV7443 [place], [place] [address]Ps# [phone] HP.ABELARDO.ADMon 01-01-2017 Admission-H&P Normal [facility] HP.IMS.ADM [facility] Patient Name: ISIDRO SMITH M1320 [facility] [address] Date of : [address], [place] [address] Unit Number: [id number] Number: [id number] Patient Status: REG ERAttending Doctor: Luly Garcia,Emergency PhysiciansService Date: 01/01/17 174History of Present IllnessChief Complaint/Present Illness:Low back pain and hypotensionHistory of Present IllnessPatient is a 51-year-old male comes to the emergency room with acute low back pain thatstarted today and hypotension noted by nurse. Patient recently discharged from [facility] December 26 status post GI bleed. Patient [...] Verified/Reviewed by 01/01/17 1755CGiselle dejesus DO Normal [facility] LUMBAR SPINE 2 OR 3 VWSon LUMBAR [...] M.D. Signed By: MARIO OWEN M.D. Normal [facility] TROPONIN Ion 01-01-2017 Troponin I.cardiac mass conc 0.015 ng/mL Normal 0.000-0.04 5 [facility] Comment on above: Performed By: #### L 300.00354 ####[facility] ZLTMVJTYWQ9103 [place], [place] [address]Me# [phone] UA COMPLETEon 01-01-2017 UA APPEARANCE HAZY Normal CLEAR [facility] Comment on above: Order Comment: Campu s: M Performed By: #### L 200.38869 ####[facility] IVPFMAIUCH[address] [place] [address]Yx# [phone] UA BILIRUBIN SMALL Normal NEGATIVE [facility] Comment on above: Order Comment: Campu s: M Result Comment: Icto test not performed. Result not confirmed. Performed By: #### L 200.41607 ####[facility] ORTTLKSOBI[address] [place] [address]Zi# [phone] UA BLOOD Negative Normal NEGATIVE [facility] Comment on above: Order Comment: Campu s: M Performed By: #### L 200.60713 ####[facility] HKAEIXCHAT[address] [place] [address] 95[address]Ba# [phone] UA COMMENT UA MICROSCOPIC Normal N [facility] Comment on above: Order Comment: Campu s: M Performed By: #### L 200.43547 ####[facility] ROMGHBWRKS[address] [place] [address] 187[address]Vd# [phone] UA KETONE TRACE Normal NEGATIVE [facility] Comment on above: Order Comment: Campu s: M Performed By: #### L .02133 ####[facility] HGPIASSTTC[address] [place] [address] 68[address]Cq# [phone] UA LK ESTERASE TRACE Normal NEGATIVE [facility] Comment on above: Order Comment: Campu s: M Performed By: #### L 200.59238 ####[facility] ZZQCWSBXSC[address] [place] [address]Co# [phone] UA NITRITE Negative Normal NEGATIVE [facility] Comment on above: Order Comment: Campu s: M Performed By: #### L 200.43377 ####[facility] XVRKKWYEZM[address] [place] [address]79[address]Dt# [phone] UA PH 5.5 Normal 5-6 [facility] Comment on above: Order Comment: Campu s: M Performed By: #### L .45759 ####[facility] VCIQKAPDVI7840 [place], [place] [address]Pt# [phone] UA PROTEIN Negative Normal NEGATIVE [facility] Comment on above: Order Comment: Campu s: M Performed By: #### L 200.79539 ####[facility] OKNDGKVYLZ2031 [place], [place] [address]Bk# [phone] UA SPEC GRAV 1.023 Normal 1.005-1.03 0 [facility] Comment on above: Order Comment: Campu s: M Performed By: #### L 200.07224 ####[facility] NKPHTCAZJZ[address] [place] [address]Pf# [phone] UA UROBILINOGEN 1.0 MG/DL Normal NORMAL [facility] Comment on above: Order Comment: Campu s: M Performed By: #### L 200.96051 ####[facility] VGCTTBAIKN[address] [place] [address]Fp# [phone] Urine, color DK YELLOW Normal [facility] Comment on above: Order Comment: Campu s: M Performed By: #### L 200.55228 ####[facility] XOSDCPPXZQ[address] [place] [address] 325[address]Vh# [phone] Urine, glucose Negative Normal NORMAL [facility] Comment on above: Order Comment: Campu s: M Performed By: #### L 200.23281 ####[facility] IFWJGVBKQA[address] [place] [address] 238[address]Qb# [phone] UA MICROSCOPICon 01-01-2017 HYALINE CAST 2 /LPF High 0-1 [facility] Comment on above: Order Comment: Campu s: M Performed By: #### L 300.37767 ####[facility] WXKDGYDUSW[address] [place] [address] 59[address]Ht# [phone] UA WBC 2 WBC/HPF Normal 0-5 [facility] Comment on above: Order Comment: Campu s: M Performed By: #### L 300.80060 ####[facility] WRZCSGIVOZ[address] [place] [address] 079[address]Wx# [phone] Urine, erythrocytes 2 RBC/HPF Normal 0-3 [facility] Comment on above: Order Comment: Campu s: M Performed By: #### L 300.12244 ####[place] [address]139508Ph# [phone] CBC W/DIFFon 12-27-2016 ANISO 1+ Normal [facility] Comment on above: Order Comment: Campu s: M Performed By: #### L 200.13223 ####[place] 3139[address]Ph# [phone] BASO ABS 0.10 K/CU MM Normal 0-0.2 [facility] Comment on above: Order Comment: Campu s: M Performed By: #### L 200.94211 ####[place] 3139508Ph# [phone] Basophils Auto #/vol (Bld) PRESENT Normal [facility] [place] Comment on above: Order Comment: Campu s: M Performed By: #### L 200.60290 ####[place] [address]Ph# [phone] Basophils/100 WBC Auto (Bld) 0.7 % Normal 0-2 [facility] Comment on above: Order Comment: Campu s: M Performed By: #### L 200.31432 ####[facility] [address]FFK[address] [place], [place] [address]Ph# [phone] EOS ABS 0.60 K/CU MM High 0-0.5 [facility] Comment on above: Order Comment: Campu s: M Performed By: #### L 200.37286 ####[place] [address]Ph# [phone] Eosinophils/100 leukocytes 5.1 % High 0-5 [facility] Comment on above: Order Comment: Campu s: M Performed By: #### L 200.60494 ####[address], [place] [address]Ad# [phone] WETZEL-JOSUSANY PRESENT Normal [facility] Comment on above: Order Comment: Campu s: M Performed By: #### L .42370 ####[facility] WQMEPAQZLQ[address] [place], [place] [address]Ph# [phone] IMMATR GRAN ABS 0.40 K/CU MM Normal Less than 2 [facility] Comment on above: Order Comment: Campu s: M Performed By: #### L . ####[facility] GSIEWXNYLK[address] [place], [place] [address]Ph# [phone] IMMATURE GRAN % 3.8 % Normal Less than 2 [facility] Comment on above: Order Comment: Campu s: M Performed By: #### L .28639 ####[place] [address]Ph# [phone] Lymphocytes 5.00 K/CU MM High 0.9-4.4 [facility] Comment on above: Order Comment: Campu s: M Performed By: #### L . ####[place] [address]Ph# [phone] Lymphocytes/100 leukocytes 43.8 % High 20-40 [facility] Comment on above: Order Comment: Campu s: M Performed By: #### L . ####[facility] [id number] [place], [place] [address]Ph# [phone] MONO ABS 1.30 K/CU MM High 0.1-1.1 [facility] Comment on above: Order Comment: Campu s: M Performed By: #### L . ####[facility] EWRAXGAICT[address] [place], [place] [address]Ph# [phone] Monocytes/100 leukocytes 11.7 % High 2-10 [facility] Comment on above: Order Comment: Campu s: M Performed By: #### L . ####[facility] TFQZATWNCK0263 [place], [place] [address]An# [phone] Neutrophils 4.00 K/CU MM Normal 2.0-8.3 [facility] Comment on above: Order Comment: Campu s: M Performed By: #### L 200.93785 ####[facility] ZVHVGRBMPG8978 [place], [place] [address]Mi# [phone] Neutrophils/100 WBC Auto (Bld) 34.9 % Low 45-75 [facility] Comment on above: Order Comment: Campu s: M Performed By: #### L 200.74235 ####[address] [address]Nt# [phone] PLT EST SLT INCREASED Normal [facility] Comment on above: Order Comment: Campu s: M Performed By: #### L 200.49269 ####[facility] TRMXORVVYV[address] [place] [address]Jc# [phone] POIK 1+ Normal [facility] Comment on above: Order Comment: Campu s: M Performed By: #### L 200.25837 ####[facility] OFPRDXXYWB[address] [place] [address]Zu# [phone] POLY 1+ Normal [facility] Comment on above: Order Comment: Campu s: M Performed By: #### L 200.38029 ####[facility] [id number] [place] [address]Zr# [phone] Erythrocyte distribution width Auto Ratio (RBC) 18.2 % High 11-14.5 [facility] Comment on above: Order Comment: Campu s: M Performed By: #### L 200.02545 ####[facility] SKTGEKHQJM[address] [place] [address]Sf# [phone] Erythrocytes (RBC) 0.5 % Normal Less than 1 [facility] Comment on above: Order Comment: Campu s: M Performed By: #### L 200.80685 ####[facility] AZGMYCRHXC[address] [place] [address]Tg# [phone] Erythrocytes (RBC) 3.15 M/CU MM Low 4.50-6.00 [facility] [place] Comment on above: Order Comment: Campu s: M Performed By: #### L 200.88440 ####[facility] EHXTDHEQNR7109 [place], [place] [address]Ed# [phone] Hematocrit (HCT) 29.9 % Low 41.0-53.0 [facility] Comment on above: Order Comment: Campu s: M Performed By: #### L 200.72909 ####[place] [address] [place], [place] [address]Sv# [phone] Hemoglobin mass conc (Bld) 9.9 g/dL Low 13.5-17.5 [facility] Comment on above: Order Comment: Campu s: M Performed By: #### L 200.04324 ####[facility] RJUXQCONTM[address] [place] [address]Uf# [phone] MCHC mass conc (RBC) 33.1 g/dL Normal 32.0-36.0 [facility] Comment on above: Order Comment: Campu s: M Performed By: #### L .23037 ####[facility] NRPBDRSNLK0001 [place], [place] [address]Om# [phone] MCV 94.9 fL Normal 80.0-99.0 [facility] Comment on above: Order Comment: Campu s: M Performed By: #### L 200.95303 ####[facility] WWNDXMKZMK[address] [place] [address]Zq# [phone] Platelet mean volume (PMV) 9.6 fL Normal 9.4-12.4 [facility] Comment on above: Order Comment: Campu s: M Performed By: #### L 200.22522 ####[facility] GIILUCJJQG[address] [place] [address]Hx# [phone] Platelets 490 K/CU MM High 150-450 [facility] Comment on above: Order Comment: Campu s: M Performed By: #### L 200.45370 ####[facility] MLKTMQOBZT1156 [place], [place] [address]Fi# [phone] WBC (Leukocytes) 11.5 K/CU MM High 4.5-11.0 [facility] Comment on above: Order Comment: Campu s: M Performed By: #### L 200.48526 ####[facility] RYNKIECWIF1336 [place], [place] [address]Ql# [phone] CARD.Echoon 12-26-2016 CARD.Echo [Embedded Image Not Available][facility] Patient Name: ISIDRO SMITH [id number] [facility] [address] Date of : [address], [place] [address] Unit Number: [id number] Number: [id number] Patient Status: ADM INoAttending Doctor: Madeline Daniel MDService Date: 12/26/16 193EchocardiogramStudy Date: 12/25/16llergies:Coded Allergies:CODEINE (11/11/16)QUETIAPINE (From SEROQUEL) (AGITATION 11/24/16)Summary:[place] [id number] [facility] [place], [place] [address]Hksxrgctrls Cardiac DiagnosticsName: ISIDRO SMITH Study Date: 12/25/2016 01:11 PM BP: 80/55 mmHgMRN: [id number] Patient Location: [facility] HR: 69DOB: 1965 Gender: Male Height: 69 inAge: 51 yrs Weight: 215 lbReason For Study: HYPOTENSIONBSA: 2.1 rooisz6Rozbflz: HYPOTENSIONInterpretation SummaryLVEF 65-70 % with normal diastolic [...] TimePatel,Rakesh Khoury MD Normal [facility] Echocardiogram This is a preliminar y report only, as the practitioner review and authentication has not occurred. Normal [facility] CBC W/DIFFon 12-26-2016 BASO ABS 0.10 K/CU MM Normal 0-0.2 [facility] Comment on above: Order Comment: Campu s: M Performed By: #### L 200.72590 ####[facility] YLAMIYCUKL9290 [place], [place] [address]Vx# [phone] Basophils/100 WBC Auto (Bld) 0.7 % Normal 0-2 [facility] Comment on above: Order Comment: Campu s: M Performed By: #### L 200.01439 ####[facility] QGJDTFEFKL[address] [place] [address]Ku# [phone] EOS ABS 0.60 K/CU MM High 0-0.5 [facility] Comment on above: Order Comment: Campu s: M Performed By: #### L 200.37148 ####[facility] YJGVCMTTDR64[address] [place] [address]Zk# [phone] Eosinophils/100 leukocytes 4.6 % Normal 0-5 [facility] Comment on above: Order Comment: Campu s: M Performed By: #### L 200.22544 ####[facility] BWUPGVICGU3862 [place], [place] [address]Oy# [phone] Erythrocyte distribution width Auto Ratio (RBC) 18.1 % High 11-14.5 [facility] Comment on above: Order Comment: Campu s: M Performed By: #### L 200.76373 ####[facility] WWTSKIAWXT34[address] [place] [address]Zm# [phone] Erythrocytes (RBC) 3.30 M/CU MM Low 4.50-6.00 [facility] Comment on above: Order Comment: Campu s: M Performed By: #### L 200.94766 ####[facility] AIRLRUJKMW8447[address] [place] [address] 26[address]Er# [phone] Erythrocytes (RBC) 0.9 % Normal Less than 1 [facility] Comment on above: Order Comment: Campu s: M Performed By: #### L 200.35880 ####[facility] ZGCZMFYBCT3758 [place], [place] [address]Tk# [phone] Hematocrit (HCT) 31.3 % Low 41.0-53.0 [facility] Comment on above: Order Comment: Campu s: M Performed By: #### L 200.01779 ####[facility] COIOHDOZKR[address]42[address] [place] [address]Aj# [phone] Hemoglobin mass conc (Bld) 10.3 g/dL Low 13.5-17.5 [facility] Comment on above: Order Comment: Campu s: M Performed By: #### L . ####[address] [address]Eg# [phone] IMMATR GRAN ABS 0.50 K/CU MM Normal Less than 2 [facility] Comment on above: Order Comment: Campu s: M Performed By: #### L 200. ####[facility] FYZVCHFJOZ72[address] [place] [address]Ib# [phone] IMMATURE GRAN % 4.3 % Normal Less than 2 [facility] Comment on above: Order Comment: Campu s: M Performed By: #### L . ####[facility] SSKHQMUBJQ9[address] [place] [address]Ja# [phone] Lymphocytes 4.80 K/CU MM High 0.9-4.4 [facility] Comment on above: Order Comment: Campu s: M Performed By: #### L 200.63990 ####[facility] CCSKBTLNRF[address]40[address] [place] [address]Zj# [phone] Lymphocytes/100 leukocytes 38.0 % Normal 20-40 [facility] Comment on above: Order Comment: Campu s: M Performed By: #### L 200.18676 ####[facility] WVZJJDAZZO[address] [place], [place] [address]Ph# [phone] MCHC mass conc (RBC) 32.9 g/dL Normal 32.0-36.0 [facility] Comment on above: Order Comment: Campu s: M Performed By: #### L 200.73735 ####[facility] HOGGMDQZGG[address] [place] [address]Za# [phone] MCV 94.8 fL Normal 80.0-99.0 [facility] Comment on above: Order Comment: Campu s: M Performed By: #### L 200.76550 ####[address] [address]Qe# [phone] MONO ABS 1.20 K/CU MM High 0.1-1.1 [facility] Comment on above: Order Comment: Campu s: M Performed By: #### L 200.73310 ####[address] [address]Sc# [phone] Monocytes/100 leukocytes 9.7 % Normal 2-10 [facility] Comment on above: Order Comment: Campu s: M Performed By: #### L 200.16294 ####[address] [address]Sd# [phone] Neutrophils 5.40 K/CU MM Normal 2.0-8.3 [facility] Comment on above: Order Comment: Campu s: M Performed By: #### L 200.94258 ####[address] [address]Ah# [phone] Neutrophils/100 WBC Auto (Bld) 42.7 % Low 45-75 [facility] Comment on above: Order Comment: Campu s: M Performed By: #### L 200.61978 ####[facility] XMJNNWVQSD87[address] [place] [address]Dk# [phone] Platelet mean volume (PMV) 9.5 fL Normal 9.4-12.4 [facility] Comment on above: Order Comment: Campu s: M Performed By: #### L 200.80428 ####[facility] VIDLQWPAHY3950 [place], [place] [address]Vq# [phone] Platelets 467 K/CU MM High 150-450 [facility] Comment on above: Order Comment: Campu s: M Performed By: #### L 200.93358 ####[facility] JNLIXFHJHZ3006 [place], [place] [address]Vp# [phone] WBC (Leukocytes) 12.5 K/CU MM High 4.5-11.0 [facility] Comment on above: Order Comment: Campu s: M Performed By: #### L 200.52883 ####[facility] NXPMJHEAQY3192 [place], [place] [address]Wi# [phone] CHEST PA/AP AND LATERALon CHEST PA/AP AND [...] M.D. Signed By: WINSTON ODELL M.D. Normal [facility] DISCH.Griceln 12-26-2016 DISCH.[facility] Patient Name: ISIDRO SMITH [facility] Date of : [address] [place] [address] Unit Number: [id number] Number: [id number] Summary Patient Status: ADM INoAttending Doctor: Madeline Daniel MDService Date: 12/26/16 1109Discharge SummaryAdmit Date12/23/16nticipated Discharge Date 12/26/16Final Dx/Problem List1. Hepatitis C2. Factor IX deficiency3. Hepatitis C4. Cellulitis of left forearmReason for Usooeiism85-sllc-qql male who was recently discharged from [facility] after evaluation ofsignificant GI bleed apparently brought [...] as well.Hospital CourseUncomplicatedVital SignsVital Signs (Last)ResultDate TimePulse Lb0280/29 0825B/P92/5006/29 3428Lmyr01.806/29 4356Hrzcg0733/29 3988Yhqs0481/ 0825O2 DeliveryROOM AIR12/25 1935Pertinent Physical FindingsGeneral: Appears [...] # 0.10, Nucleated RBCs 0.906 0430:Ionized Calcium Flpiohant48/28/17 1947:Urine Color YELLOW, Urine Appearance CLEAR, Urine pH 6.0, Ur Specific [place] 1.013, UrineProtein NEGATIVE, Urine Glucose (UA) NEGATIVE, [...] Image Not Available]12/24/16 1538:Troponin I Less than 0.9613812/24/16 1537:TSH, Ultra Sensitive 5.750 H012/24/16 0426:Factor IX Qqqhfoq36/27/17 0426:APTT 39.9 H012/23/16 1742:[Embedded Image Not Available]PrescriptionsStop taking the following medications:QUEtiapine FUMARATE* (Seroquel 100MG Tab*) 100 MG TABLET ORAL AT BEDTIMEContinue taking these medications:tiZANidine HCL (ZANAFLEX) (Zanaflex 4 MG Tablet) 4 MG TABLET4 MILLIGRAM ORAL EVERY 6 HOURS NEEDED as needed for PAINQty = 30Buprenorphine HCl* (Subutex tab.sl*) 2 MG TAB.SUBL2 MILLIGRAM SUBLINGUAL 2 TIMES DAILYQty = 14Gabapentin (Neurontin) (Neurontin Cap) 300 MG FSZIP115 MILLIGRAM ORAL 3 TIMES DAILYQty = 21Pantoprazole* (Protonix 40MG Tab*) 40 MG TABLET.DR40 MILLIGRAM ORAL TWICE A DAY BEFORE MEALSQty = 60Ondansetron HCl* (Zofran 4MG Tab*) 4 MG TABLET4 MILLIGRAM ORAL EVERY 6 HOURS NEEDED as needed for Nausea/VomitingCitalopram Hydrobromide* (celeXA 20MG TAB*) 20 MG VSTPHI05 MILLIGRAM ORAL EVERY DAYhydrOXYzine PAMOATE* (Vistaril 50MG Cap*) 50 MG OQKNURO61 MILLIGRAM ORAL FOUR TIMES DAILYStart taking the following new medications:Cephalexin (Cephalexin 500MG Capsule) 500 MG FUYOO003 MILLIGRAM ORAL EVERY 12 HOURSQty = 6No RefillsReferralsOrdered ReferralsPrimary Care Provide In Two-Three daysFor Groups:[PCP]Oncology/Hematolog y In One WeekFor Providers:Joana Bowman MD7337 [facility] [address] [place] [address] Condition: StableDisposition HomePhys Discharge Time Incur(Min) 33DisclaimerThis dictation was created using voice recognition software.Phonetic and/or minor grammatical errors may exist.eSign Date and TimeSLashon maddox MD [facility] Discharge Summary This is a preliminar y report only, as the practitioner review and authentication has not occurred. [facility] FACTOR IXon 12-26-2016 FACTOR IX 14 % Low 60-177 [facility] Comment on above: Order Comment: Ltaasha s: Basia Result Comment: Perf ormed At: [facility] [address] [id number] Skinner [id number] Performed By: #### L 200.57641 ####[facility] LPWALIWXFG[address] [place] [address]Yy# [phone] CBC W/DIFFon 12-25-2016 ANISO 1+ Normal [facility] Comment on above: Order Comment: Campu s: M Performed By: #### L 200.18508 ####[place] [address]Ph# [phone] BASO ABS 0.28 K/CU MM High 0-0.2 [facility] Comment on above: Order Comment: Campu s: M Performed By: #### L 200.42737 ####[place] [address]Ph# [phone] Basophils/100 WBC Auto (Bld) 2.0 % Normal 0-2 [facility] Comment on above: Order Comment: Campu s: M Performed By: #### L 200.70195 ####[address] [address]Ch# [phone] EOS ABS 0.42 K/CU MM Normal 0-0.5 [facility] Comment on above: Order Comment: Campu s: M Performed By: #### L 200.40208 ####[place] [address]Ph# [phone] Eosinophils/100 leukocytes 3.0 % Normal 0-5 [facility] Comment on above: Order Comment: Campu s: M Performed By: #### L 200.05456 ####[facility] LIOJOWTJXR[address] [place] [address]Zw# [phone] Lymphocytes 4.65 K/CU MM High 0.9-4.4 [facility] Comment on above: Order Comment: Campu s: M Performed By: #### L 200.00535 ####[facility] MBOKTRQHKN7[address] [place], [place] [address]Ph# [phone] Lymphocytes/100 leukocytes 33.0 % Normal 20-40 [facility] Comment on above: Order Comment: Campu s: M Performed By: #### L 200.53213 ####[facility] BRRFOEADCD2101 [place], [place] [address]Bz# [phone] META % 3.0 % Normal [facility] Comment on above: Order Comment: Campu s: M Performed By: #### L 200.92889 ####[facility] FANKSQCJCK[address] [place] [address]Fq# [phone] META ABS 0.42 K/CU MM Normal [facility] Comment on above: Order Comment: Campu s: M Performed By: #### L 200.14692 ####[address] [address]Vp# [phone] MONO ABS 0.28 K/CU MM Normal 0.1-1.1 [facility] Comment on above: Order Comment: Campu s: M Performed By: #### L 200.29210 ####[address] [address]Io# [phone] Monocytes/100 leukocytes 2.0 % Normal 2-10 [facility] Comment on above: Order Comment: Campu s: M Performed By: #### L 200.37538 ####[address] [address]Je# [phone] Neutrophils 8.04 K/CU MM Normal 2.0-8.3 [facility] Comment on above: Order Comment: Campu s: M Performed By: #### L 200.74594 ####[facility] XREITVIMSG[address] [place] [address]Uu# [phone] Neutrophils/100 WBC Auto (Bld) 57.0 % Normal 45-75 [facility] Comment on above: Order Comment: Campu s: M Performed By: #### L 200.21615 ####[facility] DQCRHHSZJR60[address] [place] [address]Um# [phone] OVALOCYTES 1+ Normal [facility] Comment on above: Order Comment: Campu s: M Performed By: #### L 200.94509 ####[facility] STZDOVOPHT6044 [place], [place] [address]Iy# [phone] PLT EST ADEQUATE Normal [facility] Comment on above: Order Comment: Campu s: M Performed By: #### L 200.96475 ####[facility] XDVRRXXBOE[address] [place] [address]Wn# [phone] POIK 1+ Normal [facility] Comment on above: Order Comment: Campu s: M Performed By: #### L 200.22661 ####[address] [address]Rg# [phone] POLY 1+ Normal [facility] Comment on above: Order Comment: Campu s: M Performed By: #### L 200.32832 ####[address] [address]Pq# [phone] Erythrocyte distribution width Auto Ratio (RBC) 18.5 % High 11-14.5 [facility] Comment on above: Order Comment: Campu s: M Performed By: #### L 200.91804 ####[address] [address]Sx# [phone] Erythrocytes (RBC) 1.3 % Normal Less than 1 [facility] Comment on above: Order Comment: Campu s: M Performed By: #### L 200.94474 ####[facility] WAUJFULVUP[address] [place] [address]Da# [phone] Erythrocytes (RBC) 3.23 M/CU MM Low 4.50-6.00 [facility] Comment on above: Order Comment: Campu s: M Performed By: #### L 200.99300 ####[facility] RLVGULNGVA[address]64[address] [place] [address]Uc# [phone] Hematocrit (HCT) 31.2 % Low 41.0-53.0 [facility] Comment on above: Order Comment: Campu s: M Performed By: #### L 200.18351 ####[facility] HAVINTCTOC6206 [place], [place] [address]Np# [phone] Hemoglobin mass conc (Bld) 10.1 g/dL Low 13.5-17.5 [facility] Comment on above: Order Comment: Campu s: M Performed By: #### L 200.86202 ####[facility] IXDBXLOOJF[address] [place] [address] 330[address]Ph# [phone] MCHC mass conc (RBC) 32.4 g/dL Normal 32.0-36.0 [facility] Comment on above: Order Comment: Campu s: M Performed By: #### L 200. ####[address] [address]Yc# [phone] MCV 96.6 fL Normal 80.0-99.0 [facility] Comment on above: Order Comment: Campu s: M Performed By: #### L 200. ####[address] [address]Mw# [phone] Platelet mean volume (PMV) 9.3 fL Low 9.4-12.4 [facility] Comment on above: Order Comment: Campu s: M Performed By: #### L 200.67636 ####[facility] RHWESVTACX[address] [place] [address]Mk# [phone] Platelets 431 K/CU MM Normal 150-450 [facility] Comment on above: Order Comment: Campu s: M Performed By: #### L 200.61297 ####[facility] RTNZJGVPPR[address] [place] [address]Md# [phone] WBC (Leukocytes) 14.1 K/CU MM High 4.5-11.0 [facility] Comment on above: Order Comment: Campu s: M Performed By: #### L 200.15414 ####[facility] YZHLSDUNGR6379 [place], [place] [address]Cc# [phone] on 12-25-2016 Hematocrit (HCT) 31.0 % Low 41.0-53.0 [facility] Comment on above: Order Comment: Johanu s: M Performed By: #### L 200.98064 ####[facility] FIFBIPQJLN5612 [place], [place] [address]Xa# [phone] Hemoglobin mass conc (Bld) 10.2 g/dL Low 13.5-17.5 [facility] Comment on above: Order Comment: Johanu s: M Performed By: #### L 200.45126 ####[facility] JVCENERACH6226 [place], [place] [address]Br# [phone] [facility] [place] [facility] Patient Name: ISIDRO SMITH M1320 [facility] Date of : [address] [address] Unit Number: [id number] Number: [id number] Note-Hospitalist Patient Status: ADM INoAttending Doctor: Madeline Daniel MDService Date: 12/25/16 1456Chief ComplaintChief Vkrvxuism67-fpce-qaz male who was recently discharged from [facility] after evaluation ofsignificant GI bleed apparently brought [...] continue KeflexHemophilia B plan of care 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 Normal [facility] T3 FREEon 12-25-2016 Triiodothyronine (T3) free 2.3 pg/mL Normal 2.2-4.0 [facility] Comment on above: Order Comment: Campu s: M Performed By: #### L 500.96786, L500.87580 ####[facility] HPWLXTXUTV8176 [place], [place] [address]Ga# [phone] T4 FREEon 12-25-2016 Thyroxine (T4) free 0.80 ng/dL Normal 0.76-1.46 [facility] Comment on above: Order Comment: Campu s: M Performed By: #### L 500.93223, L500.90654 ####[facility] [id number] [place], [place] [address]Ht# [phone] UA COMPLETEon 12-25-2016 UA APPEARANCE CLEAR Normal CLEAR [facility] Comment on above: Order Comment: Campu s: M Performed By: #### L 200.61542 ####[facility] [id number] [place], [place] [address]Zf# [phone] UA BILIRUBIN Negative Normal NEGATIVE [facility] Comment on above: Order Comment: Campu s: M Performed By: #### L 200.30990 ####[facility] [id number] [place], [place] [address]So# [phone] UA BLOOD Negative Normal NEGATIVE [facility] Comment on above: Order Comment: Campu s: M Performed By: #### L 200.80898 ####[facility] [id number] [place], [place] [address]Jl# [phone] UA COMMENT * Normal N [facility] Comment on above: Order Comment: Campu s: M Result Comment: *AMY ROSCOPIC NOT PERFORMED BASED ON CHEMICAL DETERMINATIONS. Performed By: #### L [id number] ####[facility] [id number] [place], [place] [address]Kn# [phone] UA KETONE Negative [facility] Comment [facility]: Order Comment: Campu s: M Performed By: #### L 200.11077 ####[facility] [id number] [place] [address] 91[address]Od# [phone] UA LK ESTERASE Negative Normal NEGATIVE [facility] Comment on above: Order Comment: Campu s: M Performed By: #### L [id number] ####[facility] [id number] [place] [address] 989[address]Ty# [phone] UA NITRITE Negative Normal NEGATIVE [facility] Comment on above: Order Comment: Campu s: M Performed By: #### L 200.71732 ####[facility] [id number] [place] [address] 22795Tw# [phone] UA PH 6.0 Normal 5-6 [facility] Comment on above: Order Comment: Campu s: M Performed By: #### L .[id number] ####[facility] [id number] [place] [address] 85237Hs# [phone] UA PROTEIN Negative Normal NEGATIVE [facility] Comment on above: Order Comment: Campu s: M Performed By: #### L .91199 ####[facility] [id number] [place] [address] 949[address]Oc# [phone] UA SPEC GRAV 1.013 Normal 1.005-1.03 0 [facility] Comment on above: Order Comment: Campu s: M Performed By: #### L .25849 ####[facility] [id number] [place] [address] 801[address]Mb# [phone] UA UROBILINOGEN 1.0 MG/DL Normal NORMAL [facility] Comment on above: Order Comment: Campu s: M Performed By: #### L 200.70516 ####[facility] [id number] [place] [address]Px# [phone] Urine, color YELLOW Normal [facility] Comment on above: Order Comment: Campu s: M Performed By: #### L .87362 ####[facility] [id number] [place], [place] [address]Tx# [phone] Urine, glucose Negative Normal NORMAL [facility] Comment on above: Order Comment: Latasha s: M Performed By: #### L 200.20668 ####[facility] [id number] [place], [place] [address]Rf# [phone] [facility] [place] Patient Name: ISIDRO SMITH [id number] [facility] [address] Date of : [address], [place] [address] Unit Number: [id number] Number: [id number] Note-Hospitalist Patient Status: ADM INoAttending Doctor: Madeline Daniel MDService Date: 12/24/16 1634Chief ComplaintChief Slsimipaj08-[id number]-[id number] male who was recently discharged from [facility] after evaluation ofsignificant GI bleed apparently brought [...] Dr. Bowman.Objective (ROS)Nursing VitalsVital Signs (Last)ResultDate TimeB/P99/5606/27 2063Yjamu0388/27 1216Pulse Wb6519/27 7714Xtqk73.006/27 0288Qvbn1128/27 1155Physical ExamPhysical Examination NotesGeneral: Appears well.Awake and alert oriented 3HEENT: Supple. No JVD.CV: Regular rate. No murmur.Pulm: Normal resp effort. CTAB.Abd: Soft. Nontender.Ext: No leg edema or clubbing.Skin: Erythema left upper extremity has significantly improved. Per patient. I am seeingthe patient first time today.Neuro: Alert. Appropriate. Face symmentric. No focal deficit.Psych: Calm. Normal affect.Diagnostic Data:Lab 24hr (CBC/BMP Fishbone)12/24/16 1538:Troponin I Less than 0.0079312/24/16 1537:TSH, Ultra Sensitive 5.750 H012/24/16 0426:Factor IX Aobidoi64/27/17 0426:APTT 39.9 H012/23/16 1742:[Embedded Image Not Available]Assessment and PlanConclusion1. Hepatitis C2. Factor IX deficiency3. Hepatitis C4. Cellulitis of left forearmPlanLightheadedness, dizziness will check echocardiogram check EKG check troponin. Patient isnot orthostatic. If unremarkable consider decreasing the dose of NeurontinLeft forearm cellulitis continue KeflexHemophilia B plan of care per data modeling architect next hepatitis CAnxiety depression next FEN history of heroin abuse currently on thyroxine.DisclaimerThis dictation was created using voice recognition software.Phonetic and/or minor grammatical errors may exist.eSign Date and TimeSriLashon mcdaniels MD Verified/Reviewed by 12/24/16 1638 Normal [facility] Progress Note-Hospitalist Normal [facility] PTTon 12-24-2016 aPTT 39.9 s High 22.5-31.4 [facility] Comment on above: Order Comment: Latasha [...] using the PTT. Performed By: #### L 300.64365 ####[facility] [id number] [place], [place] [address]Nw# [phone] TROPONIN Ion 12-24-2016 Troponin I.cardiac mass conc 0.015 ng/mL Normal 0.000-0.04 5 [facility] Comment on above: Order Comment: Johanu s: M Performed By: #### L 550.77605 ####[facility] [id number] [place], [place] [address]Bz# [phone] TSHon 12-24-2016 Thyroid stimulating hormone (TSH) 5.750 UIU/ML High 0.358-3.74 0 [facility] Comment on above: Order Comment: Johanu s: M Result Comment: 3rd generation ultra sensitive TSH Performed By: #### L 500.56852 ####[facility] [id number] [place], [place] [address]Xh# [phone] HHon 12-23-2016 Hematocrit (HCT) 30.6 % Low 41.0-53.0 [facility] Comment on above: Order Comment: Campu s: M Performed By: #### L 200.86511 ####[facility] [id number] [place], [place] [address]Sp# [phone] Hemoglobin mass conc (Bld) 10.4 g/dL Low 13.5-17.5 [facility] Comment on above: Order Comment: Johanu s: M Performed By: #### L 200.18248 ####[facility] [id number] [place], [place] [address]Yx# [phone] VLVDon 12-23-2016 VENOUS DUPLEX REPORT Normal [facility] VASCULAR MEDSTREAMIN G REPORT ----Patient: ISIDRO SMITH [id number] Phy:MR: [id number] for Visit: HYPOTENSIONDate of Service 12/23/16Reading Physician: [...] Full Report is available via link to Anita Margarita inVoltea under [facility] Image Viewer. [facility] PATIENT NAME: ISIDRO SMITH [id number] [facility] [address] [facility] REC #: [id number], [place] [address] DATE: 12/23/16DISCHARGE DATE:VENOUS DUPLEX REPORT ATTENDING PHY: Madeline Daniel MDElectronically Signed by: Dmitri West MD Esign Date: 12/23/16 Normal [facility] VASCULAR MEDSTREAMIN G REPORT ----Patient: ISIDRO SMITHcount [id number] Phy:MR: [id number] for Visit: HYPOTENSIONDate of Service 12/23/16Reading Physician: [...] Gertrude at 3:30 p.m.Amend:Amended by Kaiden Mccray, RUST:Madeline Daniel MDAbbreviated Final Report. Full Report is available via link to [employer] under [facility] Lab Image Viewer. [facility] PATIENT NAME: ISIDRO SMITH [id number] [facility] [address] [place] MEDICAL REC #: [id number], [place] [address] DATE: 12/23/16DISCHARGE DATE:VENOUS DUPLEX REPORT ATTENDING PHY: Madeline Daniel MDElectronically Signed by: Dmitri West MD Esign Date: 12/24/16 Normal [facility] Vital Signs Date Time Vital Sign Value Performing Clinician Facility 07-15-2023 15:27-0500 Body height 175.3 cm Mary Carmen Seay PA-C Work Phone: [facility] 07-15-2023 15:27-0500 Body weight 104.33 kg Mary Carmen Seay PA-C Work Phone: [facility] 07-05-2023 07:57-0500 Body height 175.26 cm [facility] 07-05-2023 07:57-0500 Body mass index (BMI) [Ratio] 34 kg/m2 [facility] 07-05-2023 07:57-0500 Body temperature 97.6 [degF] [facility] 07-05-2023 07:57-0500 Body weight 104.59 kg [facility] 07-05-2023 07:57-0500 Diastolic blood pressure 78 mm[Hg] [facility] 07-05-2023 07:57-0500 Heart rate 98 /min [facility] 07-05-2023 07:57-0500 Respiratory rate 16 /min [facility] 07-05-2023 07:57-0500 SaO2% (BldA) [Mass fraction] 98 % [facility] 07-05-2023 07:57-0500 Systolic blood pressure 134 mm[Hg] [facility] 04-06-2023 00:00-0400 Diastolic blood pressure 114 mm[Hg] Andreas Salazar MD Work Phone: [facility] 04-06-2023 00:00-0400 Heart rate 95 /min Andreas Salazar MD Work Phone: [facility] 04-06-2023 00:00-0400 Respiratory rate 18 /min Andreas Salazar MD Work Phone: [facility] 04-06-2023 00:00-0400 SaO2% (BldA) [Mass fraction] 95 % Andreas Salazar MD Work Phone: [facility] 04-06-2023 00:00-0400 Systolic blood pressure 186 mm[Hg] Andreas Salazar MD Work Phone: [facility] 04-05-2023 22:10-0400 Body height 175.3 cm Andreas Salazar MD Work Phone: [facility] 04-05-2023 22:10-0400 Body mass index (BMI) [Ratio] 35.44 kg/m2 Andreas Salazar MD Work Phone: [facility] 04-05-2023 22:10-0400 Body temperature 100.51 [degF] Andreas Salazar MD Work Phone: [facility] 04-05-2023 22:10-0400 Body weight 108.86 kg Andreas Salazar MD Work Phone: [facility] 10-07-2023 09:40-0400 Diastolic blood pressure 113 mm[Hg] Jessy Rothman MD Work Phone: [email or web address] 04-05-2023 09:40-0400 Heart rate 93 /min Jessy Rothman MD Work Phone: [facility] 04-05-2023 09:40-0400 SaO2% (BldA) [Mass fraction] 96 % Jessy Rothman MD Work Phone: [facility] 04-05-2023 09:40-0400 Systolic blood pressure 168 mm[Hg] Jessy Rothman MD Work Phone: [email or web address] 04-05-2023 07:49-0400 Body height 175.3 cm Jessy Rothman MD Work Phone: [facility] 04-05-2023 07:49-0400 Body mass index (BMI) [Ratio] 35.44 kg/m2 Jessy Rothman MD Work Phone: [facility] 04-05-2023 07:49-0400 Body weight 108.86 kg Jessy Rothman MD Work Phone: [facility] 04-05-2023 05:58-0400 Body temperature 98.1 [degF] Jessy Rothman MD Work Phone: [email or web address] 04-05-2023 05:58-0400 Respiratory rate 22 /min Jessy Rothman MD Work Phone: [email or web address] 02-09-2023 20:54-0400 Diastolic blood pressure 112 mm[Hg] Frederick Gombash DO Work Phone: [email or web address] 02-09-2023 20:54-0400 Heart rate 82 /min Frederick Gombash DO Work Phone: [email or web address] 02-09-2023 20:54-0400 Respiratory rate 20 /min Frederick Gombash DO Work Phone: [email or web address] 02-09-2023 20:54-0400 SaO2% (BldA) [Mass fraction] 100 % Frederick Gombash DO Work Phone: [facility] 02-09-2023 20:54-0400 Systolic blood pressure 152 mm[Hg] Frederick Valiente DO Work Phone: [facility] 02-09-2023 16:56-0400 Body mass index (BMI) [Ratio] 33.23 kg/m2 Frederick Valiente DO Work Phone: [facility] 02-09-2023 16:56-0400 Body weight 102.06 kg Frederick Valiente DO Work Phone: [facility] 02-09-2023 11:30-0400 Body temperature 99.1 [degF] Frederick Valiente DO Work Phone: [facility] 11-06-2022 13:08-0400 Body temperature 97.3 [degF] [facility] 11-06-2022 13:08-0400 Body weight 105.1 kg [facility] 11-06-2022 13:08-0400 Diastolic blood pressure 104 mm[Hg] [facility] 11-06-2022 13:08-0400 Heart rate 2 /min Bed [facility] 11-06-2022 13:08-0400 Respiratory rate 54 /min [facility] 11-06-2022 13:08-0400 Systolic blood pressure 168 mm[Hg] [facility] 07-31-2022 08:02-0500 Body temperature 97 [degF] Chair [facility] Work Phone: [facility] 07-31-2022 08:02-0500 Diastolic blood pressure 123 mm[Hg] [facility] Work Phone: [facility] 07-31-2022 08:02-0500 Heart rate 84 /min [facility] Work Phone: [facility] 07-31-2022 08:02-0500 Respiratory rate 18 /min [facility] Work Phone: [facility] 07-31-2022 08:02-0500 SaO2% (BldA) [Mass fraction] 96 % [facility] Work Phone: [facility] 07-31-2022 08:02-0500 Systolic blood pressure 160 mm[Hg] [facility] Work Phone: [facility] 07-30-2022 10:16-0500 Body weight 105.87 kg Chair [facility] Work Phone: [facility] 07-30-2022 10:16-0500 Diastolic blood pressure 98 mm[Hg] [facility] Work Phone: [facility] 07-30-2022 10:16-0500 Heart rate 80 /min [facility] Work Phone: [facility] 07-30-2022 10:16-0500 Respiratory rate 16 /min [facility] Work Phone: [facility] 07-30-2022 10:16-0500 SaO2% (BldA) [Mass fraction] 98 % [facility] Work Phone: [facility] 07-30-2022 10:16-0500 Systolic blood pressure 144 mm[Hg] [facility] Work Phone: [facility] 04-04-2022 16:04-0400 Body height 170.8 cm Chyna East MD Work Phone: [facility] 04-04-2022 16:04-0400 Body temperature 98.6 [degF] Chyna East MD Work Phone: [facility] 04-04-2022 16:04-0400 Body weight 102.51 kg Chyna East MD Work Phone: [facility] 04-04-2022 16:04-0400 Diastolic blood pressure 101 mm[Hg] Chyna East MD Work Phone: [facility] 04-04-2022 16:04-0400 Heart rate 71 /min Chyna East MD Work Phone: [facility] 04-04-2022 16:04-0400 SaO2% (BldA) [Mass fraction] 97 % Chyna East MD Work Phone: [facility] 04-04-2022 16:04-0400 Systolic blood pressure 138 mm[Hg] Chyna East MD Work Phone: [facility] 03-09-2021 15:26-0400 Body temperature 98.1 [degF] [facility] 03-09-2021 15:26-0400 Diastolic blood pressure 86 mm[Hg] [facility] 03-09-2021 15:26-0400 Heart rate 62 /min [facility] 03-09-2021 15:26-0400 Systolic blood pressure 152 mm[Hg] [facility] 03-08-2021 16:01-0400 Body temperature 98.1 [degF] [facility] 03-08-2021 16:01-0400 Diastolic blood pressure 93 mm[Hg] [facility] 03-08-2021 16:01-0400 Heart rate 60 /min [facility] 03-08-2021 16:01-0400 Systolic blood pressure 144 mm[Hg] [facility] 03-08-2021 15:45-0400 Body weight 103.96 kg [facility] 02-27-2021 10:33-0400 Body mass index (BMI) [Ratio] 33.23 kg/m2 Jonny Monreal MD Work Phone: [employer] Work Phone: 02-27-2021 10:33-0400 Body temperature 97.2 [degF] Jonny Monreal MD Work Phone: [facility] Work Phone: 02-27-2021 10:33-0400 Body weight 102.06 kg Jonny Monreal MD Work Phone: [facility] Work Phone: 02-27-2021 10:33-0400 Diastolic blood pressure 97 mm[Hg] Jonny Monreal MD Work Phone: [facility] Work Phone: 02-27-2021 10:33-0400 Heart rate 63 /min Jonny Monreal MD Work Phone: [facility] Work Phone: 02-27-2021 10:33-0400 Respiratory rate 16 /min Jonny Monreal MD Work Phone: [facility] Work Phone: 02-27-2021 10:33-0400 SaO2% (BldA) [Mass fraction] 97 % Jonny Monreal MD Work Phone: [facility] Work Phone: 02-27-2021 10:33-0400 Systolic blood pressure 144 mm[Hg] Jonny Monreal MD Work Phone: [facility] Work Phone: 10-17-2020 12:00-0400 Body height 175.3 cm Chyna East MD Work Phone: [facility] 10-17-2020 12:00-0400 Body temperature 97.5 [degF] Chyna East MD Work Phone: [facility] 10-17-2020 12:00-0400 Body weight 111.68 kg Chyna East MD Work Phone: [facility] 10-17-2020 12:00-0400 Diastolic blood pressure 92 mm[Hg] Chyna East MD Work Phone: [facility] 10-17-2020 12:00-0400 Heart rate 83 /min Chyna East MD Work Phone: [facility] 10-17-2020 12:00-0400 SaO2% (BldA) [Mass fraction] 98 % Chyna East MD Work Phone: [facility] 10-17-2020 12:00-0400 Systolic blood pressure 146 mm[Hg] Chyna East MD Work Phone: [facility] 09-08-2020 09:44-0500 Body weight 104.33 kg [facility] 09-08-2020 09:44-0500 Height 175.3 cm [facility] 09-08-2020 09:44-0500 Respiratory Rate 18 /min [facility] Clini c Encounters Encounter Date Encounter Type Care Provider Facility Start: 04-16-2024 Evaluation and manag ement of inpatient ALEXIA ANNE Facility:[id number] Start: 04-15-2024 End: 04-16-2024 Emergency department patient visit Kevin Sanchez Facility:[facility] Start: 04-15-2024 End: 04-15-2024 Telephone encounter Chyna East MD Work Phone: [facility] Comment on above: Question Start: 04-12-2024 End: 04-12-2024 Evaluation and management of inpatient GRAY VANG Facility:[facility] Start: 04-10-2024 End: 04-13-2024 Evaluation and management of inpatient SINGH HAUSER Facility:[facility] Start: 04-10-2024 End: 04-10-2024 Emergency department patient visit No Primary Care Physician Facility:[facility] Start: 04-08-2024 End: 04-08-2024 Emergency department patient visit No Primary Care Physician Facility:[facility] Start: 12-08-2023 End: 12-08-2023 Emergency department patient visit No Primary Care Physician Facility:[facility] Start: 12-04-2023 Emergency department patient visit MARY CARMEN SEAY Facility:[facility] Start: 08-29-2023 End: 08-29-2023 ambulatory MARY CARMEN SEAY Facility:[facility] Start: 08-22-2023 End: 08-22-2023 Patient encounter procedure Mary Carmen Seay PA-C Work Phone: [facility] Plastic Surgery Comment on above: Post-operative state (Primary Dx) Start: 08-22-2023 Telephone encounter Chyna Pedersen MD Work Phone: [facility] Comment on above: Appointment Start: 08-22-2023 End: 08-22-2023 ambulatory MARY CARMEN SEAY Facility:[facility] Start: 08-21-2023 Telephone encounter Chyna Pedersen MD Work Phone: [facility] Hematology/Oncology Start: 08-19-2023 Orders Only Mary Carmen lin PA-C Work Phone: [facility] Comment on above: Post-operative state (Primary Dx) Refill Request; Refi ll Request Start: 08-14-2023 Telephone encounter Kaiden yarbrough MD Work Phone: Plastic Surgery Comment on above: SURGERY ARRIVAL TIME Start: 08-11-2023 Orders Only Kaiden walker MD Work Phone: Plastic Surgery Comment on above: Post-operative state (Primary Dx) Start: 08-11-2023 End: 08-11-2023 Emergency department patient visit MARY CARMEN SEAY Facility:[facility] Start: 08-05-2023 Emergency department patient visit MARY CARMEN SEAY Facility:[facility] Start: 08-05-2023 End: 08-05-2023 Patient encounter procedure Kaiden Perez MD Work Phone: Plastic Surgery Comment on above: Post-operative state (Primary Dx) Start: 08-05-2023 End: 08-05-2023 ambulatory KAIDEN PEREZ Facility:[facility] Start: 07-30-2023 Refill Kaiden walker MD Work Phone: Plastic Surgery Comment on above: Refill Request Start: 07-25-2023 End: 07-25-2023 ambulatory MARY CARMEN SEAY Facility:[facility] Start: 07-23-2023 End: 07-23-2023 ambulatory JAMIN VERMERLYN Facility:[facility] Start: 07-15-2023 End: 07-15-2023 Patient encounter procedure Mary Carmen EL-C Work Phone: [facility] Plastic Surgery Comment on above: Post-operative state (Primary Dx) Start: 07-15-2023 End: 07-15-2023 ambulatory JAMIN VERMERLYN Facility:[facility] Start: 07-10-2023 End: 07-10-2023 ambulatory MARY CARMEN SEAY Facility:[facility] Start: 07-07-2023 End: 07-07-2023 ambulatory KAIDEN PEREZ Facility:[facility] Start: 07-05-2023 End: 07-05-2023 Emergency department patient visit [facility] Work Phone: Start: 07-02-2023 End: 07-02-2023 ambulatory JAMIN MCKNIGHT Facility:[facility] Start: 06-24-2023 End: 06-24-2023 ambulatory MARY CARMEN Fernandez DAWOOD Facility:[facility] Start: 06-24-2023 End: 06-24-2023 Patient encounter procedure Mary Carmen Seay PA-C Work Phone: [facility] Plastic Surgery Comment on above: Post-operative state (Primary Dx) Start: 06-23-2023 Emergency department patient visit MARY CARMEN GODDARDO Facility:[facility] Start: 06-20-2023 End: 06-20-2023 ambulatory MARY CARMEN PATELENTINO Facility:[facility] Start: 06-07-2023 Emergency department patient visit MARY CARMEN SEAY Facility:[facility] Start: 04-08-2023 End: 04-09-2023 Emergency department patient visit ABIMAEL MILAN [facility] Start: 04-08-2023 Telephone encounter Chyna Pedersen MD Work Phone: [facility] Hematology/Oncology Comment on above: Patient Update Start: 04-05-2023 End: 04-06-2023 Emergency department patient visit ANDREAS SALAZAR [facility] Start: 04-05-2023 End: 04-06-2023 Emergency department patient visit Andreas Salazar MD Work Phone: [facility] Comment on above: Arm contusion, left, initial encounter (Primary Dx); Factor IX deficiency (CMS/HCC) (HCC) Start: 04-05-2023 End: 04-05-2023 Emergency department patient visit JESSY ROTHMAN [facility] Start: 04-05-2023 End: 04-05-2023 Emergency department patient visit Jessy Rothman MD Work Phone: [facility] Comment on above: Hemophilia B (CMS/HC C) (HCC) (Primary Dx); Hematoma of arm, left, initial encounter Start: 02-09-2023 End: 02-10-2023 Evaluation and management of inpatient 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) ( Primary Dx); History of intravenous drug abuse (HCC); Hemarthrosis; Iron deficiency anemia due to chronic blood loss Start: 11-05-2022 Telephone encounter Chyna Pedersen MD Work Phone: [facility] Hematology/Oncology Comment on above: Recycle Coordinator - O ther Start: 11-05-2022 End: 11-05-2022 Emergency department patient visit MARIO Pacheco JAMISON [facility] Start: 07-31-2022 End: 07-31-2022 Infusion Center Chair [address] [facility] Work Phone: Hematology/Oncology Comment on above: Hemophilia B (HCC) ( Primary Dx); Congenital factor IX disorder (HCC) Start: 07-30-2022 End: 07-30-[address] [facility] [address] [facility] Work Phone: [facility] Start: 07-30-2022 End: 07-30-2022 Drug abuse prevention management Chyna East MD Work Phone: [facility] Hematology and Oncology Comment on above: Hemophilia B (HCC) ( Primary Dx); History of intravenous drug abuse (HCC) Hemophilia B (HCC) ( Primary Dx); Congenital factor IX disorder (HCC) Start: 07-30-2022 End: 07-30-2022 Patient encounter procedure Chyna East MD Work Phone: [facility] Start: 05-13-2022 Telephone encounter Chyna Pedersen MD Work Phone: [facility] Hematology/Oncology Comment on above: Clinical Update Start: 04-04-2022 End: 04-04-2022 Drug abuse prevention management Chyna East MD Work Phone: [facility] Hematology/Oncology Comment on above: Hemophilia B (HCC) ( Primary Dx); Chronic pain syndrome; History of intravenous drug abuse (HCC) Start: 04-04-2022 End: 04-04-2022 Patient encounter procedure Chyna East MD Work Phone: [facility] [facility] Start: 03-01-2022 Telephone encounter Chyna Pedersen MD Work Phone: [facility] Hematology and Oncology Comment on above: Appointment Start: 10-18-2021 Telephone encounter Chyna Pedersen MD Work Phone: [facility] Hematology and Oncology Comment on above: Patient Question Start: 09-27-2021 Telephone encounter Chyna Pedersen MD Work Phone: [facility] Hematology/Oncology Comment on above: Scheduling Start: 04-24-2021 End: 04-24-2021 Patient Outreach Sabiha Keyes RN Software Test Automation Engineer Management Comment on above: Transition Of Care ( [facility] Hospital Discharge 04/23/21 Initial Outreach Covid day 1) Start: 03-22-2021 End: 03-22-2021 Telephone encounter Chyna East MD Work Phone: [facility] Hematology/Oncology Comment on above: Edema Start: 03-09-2021 End: 03-09-2021 Infusion Center Chair 2 [facility] Hematology/Oncology Comment on above: Lower GI bleed (Prim troy Dx); Hemophilia B (HCC); Congenital factor IX disorder (HCC) Start: 03-08-2021 End: 03-08-2021 Infusion Center Chair 3 [facility] Hematology/Oncology Comment on above: Acute blood loss [...] patient visit Jonny Monreal MD Work Phone: [facility] ED Comment on above: Laceration of right index finger without foreign body without damage to nail, initial encounter (Primary Dx) Start: 01-25-2021 End: 01-25-2021 Telephone encounter Chyna East MD Work Phone: [facility] Hematology/Oncology Comment on above: Patient Update Start: 01-08-2021 End: 01-08-2021 Patient Outreach Vianca Mi RN Software Test Automation Engineer Comment on above: Transition Of Care ( Discharged from [facility] 01/07/21) Start: 10-18-2020 End: 10-18-2020 Telephone encounter Chyna East Work Phone: [facility] Hematology/Oncology Comment on above: Results Refill Request Start: 10-17-2020 End: 10-17-2020 ambulatory Chyna East MD Work Phone: [facility] Hematology/Oncology Comment on above: Gastrointestinal hem orrhage with hematemesis (Primary Dx); Acute blood loss anemia; Factor IX hemophilia (HCC) Start: 10-17-2020 End: 10-17-2020 Patient encounter procedure Chyna East MD Work Phone: [facility] Start: 09-21-2020 End: 09-21-2020 Telephone encounter Chyna East Work Phone: [facility] Hematology/Oncology Comment on above: Clinical Update Start: 09-08-2020 End: 09-08-2020 Patient encounter procedure [facility] Work Phone: [facility] Comment on above: Closed fracture of d istal end of left radius with routine healing, unspecified fracture morphology, subsequent encounter (Primary Dx) Start: 04-21-2018 End: 04-21-2018 Telephone encounter Chyna East MD Work Phone: Hematology/Oncology Comment on above: Call Back 48 Hours Start: 01-01-2017 End: 01-02-2017 Evaluation and management of inpatient Giselle Alfaro Facility:[facility] Procedures Date Procedure Procedure Detail Performing Clinician Start: 04-11-2024 Antibody screen MELISSA SEAY Comment on above: Order Comment: Speci men Type: BLOOD SPECIMENOrdering Facility: [facility] Address: [address] [place] [address] Performed By: #### T SCR ####[facility] BLOOD BANKCLIA [id number] [address] OF [place] Start: 06-24-2023 Cul bact xcpt urine blood/stool aerobic isol Mary Carmen Seay PA-C Work Phone: Start: 06-07-2023 Antibody screen MELISSA SEAY Comment on above: Order Comment: Speci men Type: BLOOD SPECIMENOrdering Facility: [facility] Address: [address] [place] [address] Performed By: #### T SCR ####[facility] BLOOD BANKCLIA [id number] [address] OF [facility] Start: 04-05-2023 Ct upper extremity w/contrast material [...] DTaP/Tdap/Td vaccine (2 - Td or Tdap) [facility] Work Phone: Start: 02-27-2031 DTaP/Tdap/Td Vaccine s (2 - Td or Tdap) DTaP/Tdap/Td Vaccines (2 - Td or Tdap) [facility] Start: 02-27-2031 Urine microalbumin profile [facility] Start: 04-13-2027 Diabetes Screening Diabetes Screenin [facility] Start: 06-23-2026 Diabetes Screening Diabetes Screenin [facility] Start: 02-16-2026 Diabetes Screening Diabetes Screenin g [facility] Start: 10-26-2024 DIABETES SCREEN DIABETES SCREEN [facility] Start: 10-24-2024 DIABETES SCREEN DIABETES SCREEN [facility] Start: 09-04-2024 DIABETES SCREEN DIABETES SCREEN [facility] Start: 04-22-2024 DIABETES SCREEN DIABETES SCREEN [facility] Start: 02-29-2024 Covid-19 Vaccine ( season) Covid-19 Vaccine () [facility] Start: 02-29-2024 Influenza vaccination [facility] Start: 01-14-2024 DIABETES SCREEN DIABETES SCREEN [facility] Start: 01-06-2024 DIABETES SCREEN DIABETES SCREEN [facility] Start: 10-12-2023 DIABETES SCREEN DIABETES SCREEN [facility] Start: 07-29-2023 DIABETES SCREEN DIABETES SCREEN [facility] Start: 06-30-2023 Behavioral Health Screening Behavioral Health Screening [facility] Start: 06-30-2023 Depression Assessment Depression Ass essment [facility] Start: 05-09-2023 End: 11-07-2023 CBC W Auto Differential panel - Blood CBC + DIFF Lab STAT Hemophilia B ([facility]) Expected: 05/09/2023, Expires: 11/07/2023 [facility] Work Phone: Comment on above: Expected: 05/09/2023 , Expires: 11/07/2023 Start: 05-09-2023 End: 11-07-2023 Ferritin [Mass/volume] in Serum or Plasma FERRITIN BLD Lab Routine Hemophilia B ([facility]) Expected: 05/09/2023, Expires: 11/07/2023 [facility] Comment on above: Expected: 05/09/2023 , Expires: 11/07/2023 Start: 05-09-2023 End: 11-07-2023 Iron and Iron binding capacity panel - Serum or Plasma IRON + TIBC Lab Routine Hemophilia B ([facility]) Expected: 05/09/2023, Expires: 11/07/2023 [facility] Comment on above: Expected: 05/09/2023 , Expires: 11/07/2023 Start: 02-28-2023 Covid-19 Vaccine ( season) Covid-19 Vaccine ( season) [facility] Start: 02-28-2023 Influenza vaccination [facility] Start: 06-30-2022 DEPRESSION ASSESSMENT DEPRESSION ASS ESSMENT [facility] Start: 02-28-2022 Influenza vaccination C [facility] Start: 2021 PROSTATE CANCER SCREENING DISCUSSION PROSTATE CANCER SCREENING DISCUSSION [facility] Start: 2021 Prostate specific antigen measurement Prostate Cancer Screening Discussion [facility] Start: 06-30-2021 DEPRESSION ASSESSMENT DEPRESSION ASS ESSMENT [facility] Start: 02-28-2021 Influenza vaccination C [facility] Start: 02-29-2020 Influenza vaccination INFLUENZA (#1) [facility] Start: 01-22-2017 Pneumococcal vaccination Pneumococcal Vaccine (2 of 2 - PPSV23 or PCV20) [facility] Start: 01-22-2017 Pneumococcal Vaccine : Pediatrics (0 to 5 Years) and At-Risk Patients (6 to 64 Years) (2 - PPSV23 if available, else PCV20) Pneumococcal Vaccine: Pediatrics (0 to 5 Years) and At-Risk Patients (6 to 64 Years) (2 - PPSV23 if available, else PCV20) [facility] Start: 01-22-2017 Pneumococcal Vaccine : Pediatrics (0 to 5 Years) and At-Risk Patients (6 to 64 Years) (2 - PPSV23 or PCV20) Pneumococcal Vaccine: Pediatrics (0 to 5 Years) and At-Risk Patients (6 to 64 Years) (2 - PPSV23 or PCV20) [facility] Start: 2016 Screening for malign ant neoplasm of colon [facility] Start: 2016 Shingles Vaccine (1 of 2) Shingles Vaccine (1 of 2) [facility] Work Phone: Start: 2016 SHINGRIX VACCINE (1 of 2) SHINGRIX VACCINE (1 of 2) [facility] Start: 2016 Zoster Vaccines (1 o f 2) Zoster Vaccines (1 of 2) [facility] Start: 2011 COLOGUARD (FIT-DNA) COLOGUARD (FIT-D NA) [facility] Start: 2011 Colonoscopy COLONOSCOPY [facility] Start: 2011 COLORECTAL CANCER SCREENING COLORECTAL CANCER SCREENING [facility] Start: [address] COLONOGRAPHY [facility] Start: 2011 FECAL OCCULT BLOOD FECAL OCCULT BLOO D [facility] Start: 2011 Screening for malign ant neoplasm of colon [facility] Start: 2011 SIGMOIDOSCOPY SIGMOIDOSCOPY [facility] Start: 2006 Diabetes screen Diabetes screen [facility] Work Phone: Start: 2006 Lipid panel Lipid screen [facility] Work Phone: Start: 2001 Lipid 1996 panel - Serum or Plasma Lipid Screening [facility] Start: 2001 Lipid panel Lipid Screening [facility] Start: 2001 LIPID SCREEN LIPID SCREEN [facility] Start: 1985 Hepatitis A Vaccines (1 of 2 - Risk 2-dose series) Hepatitis A Vaccines (1 of 2 - Risk 2-dose series) [facility] Start: 1985 HEPATITIS B (1 of 3 - Risk 3-dose series) HEPATITIS B (1 of 3 - Risk 3-dose series) [facility] Start: 1985 Hepatitis B Vaccine (1 of 3 - 19+ 3-dose series) Hepatitis B Vaccine (1 of 3 - 19+ 3-dose series) [facility] Start: 1985 Urine microalbumin profile DTAP,TDAP,TD (1 - Tdap) [facility] Start: 1984 Annual PCP Team 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 Organ Builder eamon Disease Visit Annual PCP Team Chronic Disease Visit [facility] Start: 1984 Anxiety Screening Anxiety Screening [facility] Start: 1984 BP Controlled (<130/80) BP Controlle d (<130/80) [facility] Start: 1984 Depression Screening Depression Scre ening [facility] Start: 1984 Diabetes mellitus screening Diabetes Screening [facility] Start: 1984 HIV SCREENING HIV SCREENING [facility] Start: 1984 HIV screening HIV Screening [facility] Start: 1981 HIV screening HIV screen [facility] Work Phone: Start: 1978 Adult depression screening assessment DEPRESSION SCREENING [facility] Start: 1978 COVID-19 VACCINE (1) COVID-19 VACCIN E (1) [facility] Start: 1976 Meningococcal B Vacc ine (1 of 4 - Increased Risk) Meningococcal B Vaccine (1 of 4 - Increased Risk) [facility] Start: 1971 COVID-19 VACCINE (1) COVID-19 VACCIN E (1) [facility] Start: 1968 Meningococcal Vaccin e (1 - Risk 2-dose series) Meningococcal Vaccine (1 - Risk 2-dose series) [facility] Start: 11-10-1967 HIB Vaccines (1 of 1 - Risk 1-dose series) HIB Vaccines (1 of 1 - Risk 1-dose series) [facility] Start: 1967 HEPATITIS A (1 of 2 - Risk 2-dose series) HEPATITIS A (1 of 2 - Risk 2-dose series) [facility] Start: 1967 MMR Vaccines (1 of 1 - Standard series) MMR Vaccines (1 of 1 - Standard series) [facility] Start: 02-09-1967 COVID-19 VACCINE (#1) COVID-19 VACCI NE (#1) [facility] Start: 1966 HEPATITIS B (1 of 3 - 3-dose series) HEPATITIS B (1 of 3 - 3-dose series) [facility] Start: 1966 Hepatitis B Vaccine (1 of 3 - 3-dose series) Hepatitis B Vaccine (1 of 3 - 3-dose series) [facility] Start: 1966 Hepatitis B Vaccines (1 of 3 - 3-dose series) Hepatitis B Vaccines (1 of 3 - 3-dose series) [facility] Start: 1966 Hepatitis C screening Hepatitis C sc reen [facility] Work Phone: Start: 1966 Lipid panel Lipid Panel [facility] Start: 1966 Screening for malign ant neoplasm of colon [facility] End: 10-17-2021 CBC W Auto Differential panel - Blood CBC + DIFF Lab STAT Gastrointestinal hemorrhage with hematemesis Acute blood loss anemia Once per month for 10 Occurrences starting 10/17/2020 until 10/17/2021, 1 completed [facility] Comment on above: Once per month for 1 0 Occurrences starting 10/17/2020 until 10/17/2021, 1 completed End: 03-07-2022 CBC W Auto Differential panel - Blood CBC + DIFF Lab STAT Acute blood loss anemia (ABLA) Gastrointestinal hemorrhage with hematemesis Once per month for 10 Occurrences starting 03/07/2021 until 03/07/2022, 1 completed [facility] Comment on above: Once per month for 1 0 Occurrences starting 03/07/2021 until 03/07/2022, 1 completed End: 04-05-2023 Factor 9 activity [facility] Work Phone: Comment on above: Once (Lab) for 1 Occ urrences starting 04/05/2023 until 04/05/2023 End: 10-17-2021 FERRITIN BLD FERRITIN BLD Lab Routine Gastrointestinal hemorrhage with hematemesis Acute blood loss anemia Once per month for 10 Occurrences starting 10/17/2020 until 10/17/2021, 1 completed [facility] Comment on above: Once per month for 1 0 Occurrences starting 10/17/2020 until 10/17/2021, 1 completed End: 03-07-2022 FERRITIN BLD FERRITIN BLD Lab Routine Acute blood loss anemia (ABLA) Gastrointestinal hemorrhage with hematemesis Once per month for 10 Occurrences starting 03/07/2021 until 03/07/2022, 1 completed [facility] Comment on above: Once per month for 1 0 Occurrences starting 03/07/2021 until 03/07/2022, 1 completed End: 10-17-2021 IRON + TIBC IRON + TIBC Lab Routine Gastrointestinal hemorrhage with hematemesis Acute blood loss anemia Once per month for 10 Occurrences starting 10/17/2020 until 10/17/2021, 1 completed [facility] Comment on above: Once per month for 1 0 Occurrences starting 10/17/2020 until 10/17/2021, 1 completed End: 03-07-2022 IRON + TIBC IRON + TIBC Lab Routine Acute blood loss anemia (ABLA) Gastrointestinal hemorrhage with hematemesis Once per month for 10 Occurrences starting 03/07/2021 until 03/07/2022, 1 completed [facility] Comment on above: Once per month for 1 0 Occurrences starting 03/07/2021 until 03/07/2022, 1 completed [employer] Lac [employer] Proce dures Routine 02/27/2021 12:07 PM EDT [facility] Work Phone: Patient Education ED Post Op Wou nd Check, General [facility] Work Phone: Patient referral [facility] Work Phone: End: 10-05-2021 Radex wrist complete minimum 3 views XR WRIST GENERAL 3V PA/LAT/OBL LT Radiology Routine Closed fracture of distal end of left radius with routine healing, unspecified fracture morphology, subsequent encounter 1 Occurrences starting 09/05/2020 until 10/05/2021 [facility] Comment on above: 1 Occurrences starti ng 09/05/2020 until 10/05/2021 [facility] Immunizations Immunization Date Immunization Notes Care Provider Gerson yancey 02-27-2021 tetanus toxoid, redu janice diphtheria toxoid, and acellular pertussis vaccine, adsorbed Jonny Monreal MD Work Phone: [facility] 11-27-2016 pneumococcal conjuga te vaccine, 13 valent Chyna East MD Work Phone: [facility] Payers Date Payer Category Payer Self-pay [id number] 2022 Medicaid [id number] 2020 Medicaid [id number] 2020 Medicaid [id number] 2020 Unknown [employer]AGE [id number] 2020-Present [phone] [address] [place] [address] [id number] 2020 Medicaid [employer] MEDICA ID [employer] MEDICAID [id number] 2020-Present Medicaid [id number] 2019 Private Health Insurance HUMANA HUMANA HMO [id number] 2019-2021 O [id number] [facility] [id number] 2018-Present [facility] [id number] 2018 Medicaid MEDICAID [facility] MEDICAID [id number] 2018-2018 Medicaid [id number] 1966 Unknown [id number] Unknown [facility] [id number] Unknown [id number] Unknown [id number] Unknown [id number] Unknown [id number] Unknown [id number] Social History Date Type Detail Facility Start: 11-09-2018 End: 09-08-2020 Tobacco smoking status MOIS Former smoker [facility] End: 10-23-2018 History of tobacco use Current smoker [facility] End: 10-23-2018 History of tobacco use Cigarette Smoker [facility] Start: 09-08-2020 End: 07-23-2023 Cigarettes smoked current (pack per day) - Reported [facility] Start: 09-08-2020 End: 07-03-2023 Tobacco use and exposure Never used [facility] Start: 09-08-2020 End: 07-31-2022 Alcohol intake Current non-drinker of alcohol (finding) [facility] Start: 11-09-2018 Alcohol Comment former heavy d inez; 15 years ago [facility] Start: 1965 Sex Assigned At Not on file [facility] Start: 09-16-2021 End: 02-09-2023 Exposure to SARS-CoV-2 (event) Not sure [facility] Start: 04-17-2018 End: 07-03-2023 Tobacco smoking status [facility] Current every day smoker [facility] Start: 01-10-2018 Alcohol Comment former heavy drinker [facility] Start: 02-27-2021 Tobacco smoking stat us NHIS Never smoker [facility] Work Phone: Start: 02-27-2021 Alcohol intake Lifetime non-d inez (finding) [facility] Work Phone: Start: 02-27-2021 History SDOH Alcohol Frequency 1 [facility] Work Phone: Start: 03-03-2021 End: 04-05-2023 Alcohol intake Ex-drinker (finding) [facility] Start: 02-09-2023 End: 07-23-2023 Alcohol Use Disorder Identification Test - Consumption [AUDIT-C] [facility] How often to you hav e a drink containing alcohol? 2-3 time sa week [facility] How many standard dr inks containing alcohol do you have on a typical day? 3 or 4 [facility] How often do you hav e 6 or more drinks on 1 occasion? [facility] How often do you hav e 6 or more drinks on 1 occasion? Less than monthly [facility] How many standard dr inks containing alcohol do you have on a typical day? [facility] not [facility] How hard is it for y ou to pay for the very basics like food, housing, medical care, and heating Not very hard [facility] (I/We) worried arcelia er (my/our) food would run out before (I/we) got money to buy more. Never true [facility] In the past 12 month s, was there a time when you were not able to pay the mortgage or rent on time? No [facility] Start: 07-05-2023 [facility] Start: 1965 Sex Assigned At Male W [facility] Start: 07-25-2023 End: 04-11-2024 Alcohol intake Current drinker of alcohol (finding) [facility] Start: 07-03-2023 Alcohol Comment 6 weekly [facility] Medical Equipment Procedure Code Equipment Code Equipment Original Text Equipment Identifier Dates Dressing Bovine Collagen Glycosaminoglycan Polysiloxane 5x4in Biological - [id number] Start: 07-18-2023 Clinical Notes 04-21-2018 to 04-16-2024 Telephone Encounter - Gloria Rouse - 04/15/2024 2:18 PM EDTTelephone Encounter - NasimGloria - 04/15/2024 2:18 PM EDTTelephone Encounter - Chyna Oshea MD - 08/22/2023 4:45 PM EST Note Date & Type Note Facility 04-16-2024 Note HNO ID: [id number] Author: RONY TALAMANTES, RN Service: Nursing Author Type: Registered Nurse Type: Nursing Progress Note Filed: 04/16/2024 17:34 Note Text: Pt is leaving AMA. Dr. Landis notified. [facility] 04-16-2024 Note HNO ID: [id number] Author: ALEXIA FLORENCE LISW Service: Care Management Author Type: Accountant Controller Type: Care Mgt Initial Assessment Filed: 04/16/2024 [...] Home Advance Directives Current Advance Directive: None Director Construction Services Attempted to Assist with AD Completion: No [...] were you homeless or living in a fpc (including now)?: No Utilities In the past 12 months has the electric, gas, oil, or water [email or web address] threatened to shut off services in your home?: No Social Information Financial Resources: Disabled, Unemployed Current Services/Equipment Current Post-Acute Service(s): None Discharge Planning Patient Goal(s): Be able to go home [place] of Choice Explained: [place] of Choice Given: No Reason Not Given: [...] does see [facility]. no insurance. [facility] and [facility] consulted for financial assistance and medicaid application. Pt will likely screen over income for medicaid application. Pt's ETOH use was discussed. Pt stated he has not use for 4 months. However prelim Tox screen on 04/10/24 was positive for substances. Pt awaiting urine Tox screen. He denies [facility] services. He was given a community resource list if he chooses to use it. Pt was encouraged to call [facility] to get established with a PCP under financial assistance. Pt stated he just wants his pain meds and wants to be discharged home as soon as able. Sig other to transport. No cm needs. Will follow if needed. SIGNATURE: LEE Sampson PATIENT NAME: Isidro Smith DATE: April 16, 2024 TIME: 4:45 PM CONTACT #: [phone] [facility] 04-16-2024 Note HNO ID: [id number] Author: ALEXIA FLORENCE LISW Service: Care Management Author Type: Accountant Controller Type: Care Mgt Progress Note Filed: 04/16/2024 14:27 Note Text: Summary: Discharge Planning DEVELOPER ARCHITECT unable to assess pt at this time. Pt could not stay aroused at time of assessment. Chart reviewed. [facility] Pt was also recently seen at other hospital location which he left AMA from. Pt admitted for concerns for CVA, hx of ETOH abuse. Per report and chart review pt is independent baseline with ADLs, lives with girl friend, has transportation as needed. No PCP, no insurance. Pt had been approved for [employer] in the past, but now not active. [facility] had also been contacted to screen pt but it seemed that he was over in come. Will contact [facility] and [facility] to screen for new approval as needed. Will attempt to discuss pt's substance use with pt and offer assistance, however it seems that previous cm have discussed this and pt dismisses the issue. D/c plan is TBD. Likely back home with sig other, with sig other to transport. Will follow to complete [place] as able. [facility] 04-16-2024 Note HNO ID: [id number] Author: LANI BARRETO RT(R) Service: ? Author [...] PATIENT PRESENTS WITH AN IMPLANTABLE OR ATTACHED MAINTENANCE INSPECTOR: No RADIOLOGY DEPARTMENT: MR; Exam(s) Completed: Head: Routine Brain PERIPHERAL IV DATA: Inpatient: see LDA documentation SIGNED BY: RT Kamryn(R) April 16, 2024 8:00 AM [facility] 04-15-2024 Telephone encount er Note Patient called office today. He states he was in ER and left AMA and questions if he should return to hospital. Patient states his lab values were low but could not say which lab test. Care Everywhere March notes not yet updated. Call unexpectedly disconnected. Will reach back out to patient. [facility] 04-15-2024 Miscellaneous Notes Formattin g of this [...] out to patient. documented in this encounter [facility] 04-13-2024 Note [facility] 04-13-2024 Note [facility] 04-13-2024 Note [facility] 04[facility]13-2024 [facility] 04-13-2024 [facility] 04-13-2024 [facility] 04-12-2024 [facility] 04-12-2024 Note [facility] 04-12-2024 Note [facility] 04-12-2024 Note [facility] 08-29-2023 Note [facility] 08-22-2023 Telephone encount er Note He still needs a follow up appt as he doesn't make any of his hospital follow ups. [facility] 08-22-2023 Miscellaneous Notes Formattin g of this [...] Abraham Reich MA documented in this encounter [facility] 08-22-2023 Note [facility] 08-22-2023 History of Presen t illness Narrative [...] Carmen Seay PA-C documented in this encounter [facility] 08-22-2023 Telephone encount er Note Isidro called [...] to be seen . Abraham Reich MA [facility] 08-21-2023 Miscellaneous Notes Formattin g of this note might be different from the original. Appointment set for tomorrow 0945am, benefix infusion scheduled for 11am, patient aware. Sabrina Alvarez RN Patient called he has an emergency appointment at 11 today with dentist to potentially get tooth pulled. Sabrina Alvarez RN documented in this encounter [facility] 08-15-2023 Note [facility] 08-14-2023 Miscellaneous Notes Formattin g of this note might be different from the original. Isidro notified of arrival time for surgery tomorrow: 10:40AM. NPO after midnight. Pt voices understanding. Encouraged to call with questions or problems. Darlene documented in this encounter [facility] 08-13-2023 Note [facility] 08-13-2023 History of Presen t illness Narrative [...] Carmen Seay PA-C documented in this encounter [facility] 08-06-2023 Note [facility] 08-06-2023 Note [facility] 08-05-2023 History of Presen t illness Narrative [...] Past Histories independently gathered by the clinical media production support manager and the remaining scribed note accurately describes my personal service to the patient. Surgery Scheduling Isidro Smith 1965 Procedure: STSG to forearm OR Time Needed: 60 min [facility] or [facility]:any Equipment Request: dermatome, adaptic, plastics set, 3-0 chromic, xerform, cotton balls, 3-0 nylos x4 SA Requested: y if no pa Anesthesia: General Post op appointment: 1,3,6 Inpatient stay:No Block Needed: No Pre Testing Needed: No Occupational Therapy: No Cosmetic: No Kaiden Perez MD documented in this encounter [facility] 08-05-2023 Note [facility] 07-30-2023 Miscellaneous Notes Formattin g of this note might be different from the original. Dr. Khalil, He is asking for one more refill. Do you approve or deny? Tran Walker MA documented in this encounter [facility] 07-25-2023 Note [facility] 07-23-2023 Note [facility] 07-18-2023 Note [facility] 07-18-2023 Note HNO ID: [id number] Author: RHONDA MARTIN RN Service: Nursing Author Type: Registered Nurse Type: Nursing Progress Note Filed: 07/18/2023 14:18 Note Text: Dr Castle notified of status of Benefix - states it can be given in presurg or OR [facility] 07-18-2023 Note HNO ID: [id number] Author: RHONDA MARTIN, FRANKIE Service: Nursing Author Type: Registered Nurse Type: Nursing Progress Note Filed: 07/18/2023 14:17 Note Text: Pharmacy notified of order for Benefix - they will prepare and hand deliver to presurg dept [facility] 07-14-2023 Note [facility] 07-10-2023 Note [facility] 07-03-2023 Note [facility] 07-02-2023 Note [facility] 06-27-2023 Note [facility] 06-24-2023 Note [facility] 06-24-2023 History of Presen t illness Narrative [...] Carmen Seay PA-C documented in this encounter [facility] 06-24-2023 Note [facility] 06-20-2023 Note [facility] 06-13-2023 Note [facility] 06-13-2023 Note [facility] 06-13-2023 Note [facility] 06-13-2023 Note [facility] 06-13-2023 Note [facility] 06-12-2023 Note [facility] 06-12-2023 Note HNO ID: [id number] Author: Evangelista Yepez MD Service: Hospital Medicine Author Type: Physician Type: Progress Notes Filed: 06/12/2023 7:45 AM Note Text: Reviewed chart. Patient to OR. Will round tomorrow with Nurse. [facility] 06-12-2023 Note [facility] 06-12-2023 Note [facility] 06-11-2023 Note [facility] 06-11-2023 Note [facility] 06-10-2023 Note [facility] 06-10-2023 Note [facility] 06-09-2023 History of Past i llness Narrative [...] Overview: Added automatically from request for surgery [id number] Last Assessment & Plan: C.diff positive Continue PO Vancomycin 125 mg QID x 10 days per ID ID following WBC elevated to 26k today Will evaluate for alternate source of infection Upper GI bleed 03/24/2018 09/26/2018 Overview: Added automatically from request for surgery [id number] Last Assessment & Plan: Assessment: Hgb stable [...] of this encounter (statuses as of 08/01/2023) [facility]12-11-2023 History of Past illness Narrative* Problem Noted [...] Overview: Added automatically from request for surgery [id number] Last Assessment & Plan: C.diff positive Continue PO Vancomycin 125 mg QID x 10 days per ID ID following WBC elevated to 26k today Will evaluate for alternate source of infection Upper GI bleed 03/24/2018 09/26/2018 Overview: Added automatically from request for surgery [id number] Last Assessment & Plan: Assessment: Hgb stable [...] of this encounter (statuses as of 08/07/2023) [facility]12-11-2023 History of Past illness Narrative* Problem Noted [...] Overview: Added automatically from request for surgery [id number] Last Assessment & Plan: C.diff positive Continue PO Vancomycin 125 mg QID x 10 days per ID ID following WBC elevated to 26k today Will evaluate for alternate source of infection Upper GI bleed 03/24/2018 09/26/2018 Overview: Added automatically from request for surgery [id number] Last Assessment & Plan: Assessment: Hgb stable [...] of this encounter (statuses as of 08/11/2023) [facility]12-11-2023 History of Past illness Narrative* Problem Noted [...] Overview: Added automatically from request for surgery [id number] Last Assessment & Plan: C.diff positive Continue PO Vancomycin 125 mg QID x 10 days per ID ID following WBC elevated to 26k today Will evaluate for alternate source of infection Upper GI bleed 03/24/2018 09/26/2018 Overview: Added automatically from request for surgery [id number] Last Assessment & Plan: Assessment: Hgb stable [...] of this encounter (statuses as of 08/13/2023) [facility]12-11-2023 History of Past illness Narrative* Problem Noted [...] Overview: Added automatically from request for surgery [id number] Last Assessment & Plan: C.diff positive Continue PO Vancomycin 125 mg QID x 10 days per ID ID following WBC elevated to 26k today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 Advance Directive(s) 08/14/2020 3:52 PM Advance Directive(s) 07/29/2020 8:20 PM Advance Directive(s) 11/23/2018 4:09 PM Advance Directive(s) 11/16/2018 8:37 PM Advance Directive(s) 11/09/2018 10:58 AM Advance Directive(s) 07/30/2018 12:15 PM Advance Directive(s) 06/25/2018 9:19 AM Advance Directive(s) 04/26/2018 6:49 PM Advance Directive(s) 01/10/2018 11:05 AM Advance Directive(s) 03/30/2017 2:51 AM Documents on File Type Date Recorded 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 Advance Directive(s) 10/11/2020 6:42 PM [...] Documents on File Type Date Recorded 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 Advance Directive(s) 01/04/2021 1:29 AM [...] Documents on File Type Date Recorded 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 Advance Directive(s) 01/15/2021 7:49 PM [...] Documents on File Type Date Recorded 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 Advance Directive(s) 03/03/2021 12:29 PM [...] Documents on File Type Date Recorded 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 Advance Directive(s) 03/03/2021 12:29 PM [...] Documents on File Type Date Recorded 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 Advance Directive(s) 03/22/2021 4:17 PM [...] Documents on File Type Date Recorded 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 Advance Directive(s) 04/21/2021 3:35 AM [...] Documents on File Type Date Recorded 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 Advance Directive(s) 09/26/2021 7:43 PM [...] Documents on File Type Date Recorded 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 Advance Directive(s) 10/07/2021 3:42 AM [...] Will No July 05 8:03am Power of Radiology Director No July 05, 024 8:03am Date Activated [...] Overview: Added automatically from request for surgery [id number] Last Assessment & Plan: C.diff positive Continue PO Vancomycin 125 mg QID x 10 days per ID ID following WBC elevated to 26k today Will evaluate for alternate source of infection Upper GI bleed 03/24/2018 09/26/2018 Overview: Added automatically from request for surgery [id number] Last Assessment & Plan: Assessment: Hgb stable [...] Overview: Added automatically from request for surgery [id number] Last Assessment & Plan: C.diff positive Continue PO Vancomycin 125 mg QID x 10 days per ID ID following WBC elevated to 26k today Will evaluate for alternate source of infection Upper GI bleed 03/24/2018 09/26/2018 Overview: Added automatically from request for surgery [id number] Last Assessment & Plan: Assessment: Hgb stable [...] ago. 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 [place] DATE CREATED AUTHOR AUTHOR'S ORGANIZ ATION 01/14/2021 [facility] DATE CREATED AUTHOR AUTHOR'S ORGANIZ ATION 03/16/2021 [facility] DATE CREATED AUTHOR AUTHOR'S ORGANIZ ATION 04/02/2021 [facility] DATE CREATED AUTHOR AUTHOR'S ORGANIZ ATION 04/24/2021 [facility] DATE CREATED AUTHOR AUTHOR'S ORGANIZ ATION 11/06/2022 [facility] DATE CREATED AUTHOR AUTHOR'S ORGANIZ ATION 02/25/2023 [facility] DATE CREATED AUTHOR AUTHOR'S ORGANIZ ATION 05/30/2023 [facility] DATE CREATED AUTHOR AUTHOR'S ORGANIZ ATION 05/04/2024 [facility] DATE CREATED AUTHOR AUTHOR'S ORGANIZ ATION 05/09/2024 [facility] DATE CREATED AUTHOR AUTHOR'S ORGANIZ ATION 05/15/2024 [facility] Source Comments (unrecognize d section and content) In the event this informatio n is protected by the Federal Confidentiality of Alcohol and Drug Abuse Patient Records regulations: The Federal rules restrict any use of the information to criminally investigate or prosecute any alcohol or drug abuse patient.[facility] CenterIn the event this information is protected by the Federal Confidentiality of Alcohol and Drug Abuse Patient Records regulations: The Federal rules restrict any use of the information to criminally investigate or prosecute any alcohol or drug abuse patient.[facility] CenterIn the event this information is protected by the Federal Confidentiality of Alcohol and Drug Abuse Patient Records regulations: The Federal rules restrict any use of the information to criminally investigate or prosecute any alcohol or drug abuse patient.[facility] CenterIn the event this information is protected by the Federal Confidentiality of Alcohol and Drug Abuse Patient Records regulations: The Federal rules restrict any use of the information to criminally investigate or prosecute any alcohol or drug abuse patient.[facility] CenterIn the event this information is protected by the Federal Confidentiality of Alcohol and Drug Abuse Patient Records regulations: The Federal rules restrict any use of the information to criminally investigate or prosecute any alcohol or drug abuse patient.[facility] CenterIn the event this information is protected by the Federal Confidentiality of Alcohol and Drug Abuse Patient Records regulations: The Federal rules restrict any use of the information to criminally investigate or prosecute any alcohol or drug abuse patient.[facility] CenterIn the event this information is protected by the Federal Confidentiality of Alcohol and Drug Abuse Patient Records regulations: The Federal rules restrict any use of the information to criminally investigate or prosecute any alcohol or drug abuse patient.[facility] CenterIn the event this information is protected by the Federal Confidentiality of Alcohol and Drug Abuse Patient Records regulations: The Federal rules restrict any use of the information to criminally investigate or prosecute any alcohol or drug abuse patient.[facility] CenterIn the event this information is protected by the Federal Confidentiality of Alcohol and Drug Abuse Patient Records regulations: The Federal rules restrict any use of the information to criminally investigate or prosecute any alcohol or drug abuse patient.[facility] CenterIn the event this information is protected by the Federal Confidentiality of Alcohol and Drug Abuse Patient Records regulations: The Federal rules restrict any use of the information to criminally investigate or prosecute any alcohol or drug abuse patient.[facility] CenterIn the event this information is protected by the Federal Confidentiality of Alcohol and Drug Abuse Patient Records regulations: The Federal rules restrict any use of the information to criminally investigate or prosecute any alcohol or drug abuse patient.[facility] CenterIn the event this information is protected by the Federal Confidentiality of Alcohol and Drug Abuse Patient Records regulations: The Federal rules restrict any use of the information to criminally investigate or prosecute any alcohol or drug abuse patient.[facility] CenterIn the event this information is protected by the Federal Confidentiality of Alcohol and Drug Abuse Patient Records regulations: The Federal rules restrict any use of the information to criminally investigate or prosecute any alcohol or drug abuse patient.[facility] CenterIn the event this information is protected by the Federal Confidentiality of Alcohol and Drug Abuse Patient Records regulations: The Federal rules restrict any use of the information to criminally investigate or prosecute any alcohol or drug abuse patient.[facility] CenterIn the event this information is protected by the Federal Confidentiality of Alcohol and Drug Abuse Patient Records regulations: The Federal rules restrict any use of the information to criminally investigate or prosecute any alcohol or drug abuse patient.[facility] CenterIn the event this information is protected by the Federal Confidentiality of Alcohol and Drug Abuse Patient Records regulations: The Federal rules restrict any use of the information to criminally investigate or prosecute any alcohol or drug abuse patient.[facility] CenterIn the event this information is protected by the Federal Confidentiality of Alcohol and Drug Abuse Patient Records regulations: The Federal rules restrict any use of the information to criminally investigate or prosecute any alcohol or drug abuse patient.[facility] CenterIn the event this information is protected by the Federal Confidentiality of Alcohol and Drug Abuse Patient Records regulations: The Federal rules restrict any use of the information to criminally investigate or prosecute any alcohol or drug abuse patient.[facility] CenterIn the event this information is protected by the Federal Confidentiality of Alcohol and Drug Abuse Patient Records regulations: The Federal rules restrict any use of the information to criminally investigate or prosecute any alcohol or drug abuse patient.[facility] CenterIn the event this information is protected by the Federal Confidentiality of Alcohol and Drug Abuse Patient Records regulations: The Federal rules restrict any use of the information to criminally investigate or prosecute any alcohol or drug abuse patient.[facility] CenterIn the event this information is protected by the Federal Confidentiality of Alcohol and Drug Abuse Patient Records regulations: The Federal rules restrict any use of the information to criminally investigate or prosecute any alcohol or drug abuse patient.[facility] CenterIn the event this information is protected by the Federal Confidentiality of Alcohol and Drug Abuse Patient Records regulations: The Federal rules restrict any use of the information to criminally investigate or prosecute any alcohol or drug abuse patient.[facility] CenterIn the event this information is protected by the Federal Confidentiality of Alcohol and Drug Abuse Patient Records regulations: The Federal rules restrict any use of the information to criminally investigate or prosecute any alcohol or drug abuse patient.[facility] CenterIn the event this information is protected by the Federal Confidentiality of Alcohol and Drug Abuse Patient Records regulations: The Federal rules restrict any use of the information to criminally investigate or prosecute any alcohol or drug abuse patient.[facility] CenterIn the event this information is protected by the Federal Confidentiality of Alcohol and Drug Abuse Patient Records regulations: The Federal rules restrict any use of the information to criminally investigate or prosecute any alcohol or drug abuse patient.[facility] CenterIn the event this information is protected by the Federal Confidentiality of Alcohol and Drug Abuse Patient Records regulations: The Federal rules restrict any use of the information to criminally investigate or prosecute any alcohol or drug abuse patient.[facility] CenterIn the event this information is protected by the Federal Confidentiality of Alcohol and Drug Abuse Patient Records regulations: The Federal rules restrict any use of the information to criminally investigate or prosecute any alcohol or drug abuse patient.[facility] CenterIn the event this information is protected by the Federal Confidentiality of Alcohol and Drug Abuse Patient Records regulations: The Federal rules restrict any use of the information to criminally investigate or prosecute any alcohol or drug abuse patient.[facility] CenterIn the event this information is protected by the Federal Confidentiality of Alcohol and Drug Abuse Patient Records regulations: The Federal rules restrict any use of the information to criminally investigate or prosecute any alcohol or drug abuse patient.[facility] CenterIn the event this information is protected by the Federal Confidentiality of Alcohol and Drug Abuse Patient Records regulations: The Federal rules restrict any use of the information to criminally investigate or prosecute any alcohol or drug abuse patient.[facility] CenterIn the event this information is protected by the Federal Confidentiality of Alcohol and Drug Abuse Patient Records regulations: The Federal rules restrict any use of the information to criminally investigate or prosecute any alcohol or drug abuse patient.[facility] CenterIn the event this information is protected by the Federal Confidentiality of Alcohol and Drug Abuse Patient Records regulations: The Federal rules restrict any use of the information to criminally investigate or prosecute any alcohol or drug abuse patient.[facility] CenterIn the event this information is protected by the Federal Confidentiality of Alcohol and Drug Abuse Patient Records regulations: The Federal rules restrict any use of the information to criminally investigate or prosecute any alcohol or drug abuse patient.[facility] CenterIn the event this information is protected by the Federal Confidentiality of Alcohol and Drug Abuse Patient Records regulations: The Federal rules restrict any use of the information to criminally investigate or prosecute any alcohol or drug abuse patient.[facility] CenterIn the event this information is protected by the Federal Confidentiality of Alcohol and Drug Abuse Patient Records regulations: The Federal rules restrict any use of the information to criminally investigate or prosecute any alcohol or drug abuse patient.[facility] CenterIn the event this information is protected by the Federal Confidentiality of Alcohol and Drug Abuse Patient Records regulations: The Federal rules restrict any use of the information to criminally investigate or prosecute any alcohol or drug abuse patient.[facility] CenterIn the event this information is protected by the Federal Confidentiality of Alcohol and Drug Abuse Patient Records regulations: The Federal rules restrict any use of the information to criminally investigate or prosecute any alcohol or drug abuse patient.[facility] CenterIn the event this information is protected by the Federal Confidentiality of Alcohol and Drug Abuse Patient Records regulations: The Federal rules restrict any use of the information to criminally investigate or prosecute any alcohol or drug abuse patient.[facility] Reason for Visit (unrecogniz ed section and content) Reason Comments Post Op Specialty Diagnoses / Procedures Referred By Mimi badillo Referred To Contact [facility] DEPARTMENT Diagnoses POST OP / sx date 08/22. ar Procedures EST PATIENT Self [facility] [place] [address] Referral ID Status Reason Start Date Expiration Date Visits Requested Visits Authorized [id number] Authorized Patient Cleared - Qualified 100% FAS 08/14/2023 11/12/2023 99 99 Specialty Diagnoses / Procedures Referred By Contac t Referred To Contact Plastic Surgery / PLASTIC SURGERY Diagnoses postop. ar 07/02/23 per pt, no insurance info for appt today. pe Procedures EST PATIENT Jamin Mcknight APRN.CHORAL DIRECTOR [address] [address] KasandrayandelanujaJamin APRN.CHORAL DIRECTOR [address] [address] Referral ID Status Reason Start Date Expiration Date Visits Requested Visits Authorized [id number] Authorized Financial Clearance Required - Self Pay OON/Self Pay Override 07/02/2023 09/30/2023 6 6 Reason Comments Infusion Specialty Diagnoses / Procedures Referred By Contac t Referred To Contact Diagnoses Congenital factor IX disorder (HCC) Hemophilia B (HCC) Procedures FACTOR IX RECOMBINANT Chyna East MD [address] [address] Shaun Treat Lyle Pob [address] [place] [address] Referral ID Status Reason Start Date Expiration Date V isits Requested Visits Authorized [id number] Authorized 07/29/2022 08/27/2022 1 2 Reason Comments [...] Chyna East MD [address] [address] Shaun Ag Lyle Pob [address] [place] [address] Reason Onset Date Comments Transition Of Care 01/08/2021 Discharged fr [facility] 01/07/21 Reason Comments Patient Update Reason Comments Laceration Status Reason Specialty Diagnoses / Procedures Referred By Contact Referred To Contact Authorized Diagnoses 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 Lower GI bleed Procedures FACTOR IX RECOMBINANT Chyna Edward MD [address] [address] Shaun Treat Lyle Pob [address] [place] [address] Status Reason Specialty Diagnoses / Procedures Referred By Contact Referred To Contact Authorized Diagnoses 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 Lower GI bleed Procedures FACTOR IX RECOMBINANT Chyna Edward MD [address] [address] Shaun Treat Lyle Pob [address] [place] [address] Reason Comments Edema Reason Onset Date Comments Transition Of Care 04/24/2021 [facility] Discharge 04/23/21 Initial Outreach Covid day 1 Reason Comments Scheduling Reason Comments Patient Question Reason Comments Appointment Reason Comments Non-Chemotherapy Treatment Reason Comments Recycle Coordinator - Other Referral ID Status Reason Start Date Expiration Date V isits Requested Visits Authorized [id number] Authorized 11/06/2022 12/04/2022 1 3 Reason Comments [...] LESS WOUND SURFACE AREA Kaiden Perez MD [address] [address] [facility] [place] [address] Referral ID Status Reason Start Date Expiration Date Visits Requested Visits Authorized [id number] Authorized Patient Cleared - Qualified 100% FAS [...] - Provid er: Bartolome Carrillo RN) HYDROcodone-acetaminophen ([place]) 5-325 MG per tablet 1 tablet (COMPLETED) [...] Care Teams (unrecognized sec tion and content) Breaker Oiler Relationship Specialty Start Date End Date [facility] [address] PCP - General 03/03/21 Breaker Oiler Relationship Specialty Start Date End Date [address] [address] PCP - General 03/03/21 Breaker Oiler Relationship Specialty Start Date End Date [address] [address] PCP - General 03/03/21 Breaker Oiler Relationship Specialty Start Date End Date [address] [address] PCP - General 03/03/21 Breaker Oiler Relationship Specialty Start Date End Date [facility] [address] [place] [address] PCP - General 03/03/21 Breaker Oiler Relationship Specialty Start Date End Date [address] [address] PCP - General 03/03/21 Breaker Oiler Relationship Specialty Start Date End Date [address] [address] PCP - General 03/03/21 Breaker Oiler Relationship Specialty Start Date End Date [facility] [place] [address] PCP - General 03/03/21 Breaker Oiler Relationship Specialty [place] [address] PCP - General 03/03/21 Team Status: Active Member Role Status Dates No Primary Care Physician Primary Care Provider Active Team Status: Inactive Member Role Status Dates Dr. Stevie Cassidy , DO Emergency Provider Active No Primary Care Physician Primary Care Provider Active Breaker Oiler Relationship Specialty Start Date End Date Pcp, No, CLEANER AND PREPARER PCP - General Adult Health 06/23/23 01/28/24 Breaker Oiler Relationship Specialty Start Date End Date Pcp, No, CLEANER AND PREPARER PCP - General Adult Health 06/23/23 01/28/24 Breaker Oiler Relationship Specialty Start Date End Date Pcp, No, CLEANER AND PREPARER PCP - General Adult Health 06/23/23 01/28/24 Breaker Oiler Relationship Specialty Start Date End Date Pcp, No, CLEANER AND PREPARER PCP - General Adult Health 06/23/23 01/28/24 Breaker Oiler Relationship Specialty Start Date End Date Pcp, No, CLEANER AND PREPARER PCP - General Adult Health 06/23/23 01/28/24 Breaker Oiler Relationship Specialty Start Date End Date Pcp, No, CLEANER AND PREPARER PCP - General Adult Health 06/23/23 01/28/24 Breaker Oiler Relationship Specialty [place] [address] PCP - General 03/03/21 06/22/23 Pcp, No, CLEANER AND PREPARER PCP - General Adult Health 06/23/23 01/28/24 Breaker Oiler Relationship Specialty [place] [address] PCP - General 03/03/21 06/22/23 Goals (unrecognized [...] BE BASED ON THE PRIMARY CLINICAL RECORDS. [employer] [facility]. provides no warranty or guarantee of the accuracy or completeness of information in this document.
[2025-01-17 22:28] VITALS: BMI 35.4
[2025-01-17 22:36] VITALS: BP 179/111; PULSE 97; RESP 18; TEMP 36.4; O2SAT 97
[2025-01-18 01:12] VITALS: BP 163/137; TEMP 36.2
[2025-01-18 01:15] VITALS: BP 163/137; PULSE 99; RESP 18; TEMP 36.2; O2SAT 96
--- NOTE | 2025-01-18 01:47 | NURSING ---
Kae dawson. attempt to give pt meds for withdraw and Norvasc for bp but pt refused all meds at this time. will monitor
[2025-01-18 06:07] VITALS: BP 151/95; PULSE 113; RESP 18; TEMP 36.3; O2SAT 96
--- NOTE | 2025-01-18 06:37 | NURSING ---
Pt continues to refuse all meds at this time. Dr lei notified
--- NOTE | 2025-01-18 10:52 | NURSING ---
This nurse has attempted to take pt. vitals signs twice this AM. Both times pt. refuses to stay still and continues to move once blood pressure cuff is on. Pt. also refuses to speak to this nurse and will not respond to any of this nurses questions.
--- NOTE | 2025-01-18 13:22 | PCM.PN.HOSP ---
Subjective Subjective Cina score of 18, however he refuses to interact with staff or answer questions. Objective Data Objective Data Vital Signs: Vital Signs Temp Pulse Resp BP Pulse Ox O2 Del Method 97.3 F L 113 H 18 151/95 H 96 Room Air 01/18/25 06:07 01/18/25 06:07 01/18/25 06:07 01/18/25 06:07 01/18/25 06:07 01/18/25 06:07 Oxygen Delivery Method Room Air Weight: 240 lb 4.862 oz Body Mass Index (BMI) 35.4 Intake & Output: Intake and Output for Last 24 Hours 01/17/25 01/18/25 01/19/25 03:59 03:59 03:59 Intake Total 240 / 240 0 / 0 Balance 240 / 240 0 / 0 Lab / Micro Data 01/17/25 20:15 01/17/25 19:45 Labs: Laboratory Results - last 24 hr 01/17/25 19:45: Sodium 137, Potassium 4.1, Chloride 103, Carbon Dioxide 21.1, Anion Gap 13, BUN 12, Creatinine 0.79, Estim Creat Clear Calc 124.79, Est GFR (MDRD) Non-Af 103, BUN/Creatinine Ratio 14.6, Glucose 110 H, Calcium 9.3, Total Bilirubin 0.98, AST 45 H, ALT 46, Alkaline Phosphatase 133 H, Total Protein 7.6, Albumin 4.1, Globulin 3.5, Albumin/Globulin Ratio 1.2, Ethyl Alcohol < 10.1 01/17/25 20:15: WBC 13.0 H, RBC 5.05, Hgb 16.0, Hct 46.4, MCV 91.9, MCH 31.7, MCHC 34.5, RDW Std Deviation 46.5 H, RDW Coeff of Uday 13.8, Plt Count 424, MPV 9.7, Immature Gran % (Auto) 0.600, Neut % (Auto) 65.9, Lymph % (Auto) 21.6, Tillman % (Auto) 8.1, Eos % (Auto) 3.2, Baso % (Auto) 0.6, Absolute Neuts (auto) 8.6 H, Absolute Lymphs (auto) 2.80, Nucleated RBC % 0 Physical Exam Narrative General: Alert, noncompliant HEENT: Atraumatic, EOMI, Normocephalic Oral: Moist Mucosa Neck: Supple, No JVD Lungs: Diminished, Normal air movement, No rhonchi, No wheeze, No rales Cardiovascular: Tachycardic, Regular Rhythm, Normal S1, Normal S2, No murmurs Abdomen: Soft, Non Tender, Non-Distended, No Hepato-splenomegaly Extremities: No edema, Capillary Refill Less than 3 Seconds Skin: No rashes, No breakdown Musculoskeletal: No Tenderness to Palpation of Joints or Extremities Neurological: Does not interact with exam Psych/Mental Status: Flat Assessment & Plan Assessment/Plan (1) Fentanyl use disorder, mild, abuse: (2) Admitted to substance misuse detoxification center: PLAN: Plan 1. Opiate withdrawal ? Continue with the opiate withdrawal protocol, though he is refusing all medications ? Unclear if he will meet with 180 for discharge planning ? At this time it does appear that his interactions are behavioral in nature DVT: Ambulation Charges/Coding Visit Charges Inpatient E&M: 90074 Subs Hosp L2
[2025-01-18 14:42] VITALS: BP 144/110; PULSE 143; RESP 20; TEMP 36.6; O2SAT 97
[2025-01-18 14:44] VITALS: RESP 20
--- NOTE | 2025-01-18 16:53 | PCM.CODE.SUM ---
Code Blue Report Code Blue Summary Code Blue Summary: At 1537 a CODE BLUE was called, Mr. Smith was found on the floor. He had gotten up to get to the bathroom prior to nurses coming back into to a blood pressure check and vital sign evaluation. Throughout the day vital signs have been stable when he would allow them to check it. He has been tachycardic because of his withdrawal symptoms, unfortunately he was refusing all medications. On arrival he was found down and unresponsive so TORITO LYNCH was called and CPR was initiated immediately. He had active CPR and medication intervention for approximately 45 minutes including 3 rounds of bicarb and 10 rounds of epinephrine. He did not have any IVs in place partly due to being in opiate detox patient as well as his desire to not have an IV in place. 2 IO's were placed in his bilateral lower extremities and IV fluids and medications were administered through these. He had IV fluids started and was intubated during the CODE BLUE. Lab work yesterday on admission had been unremarkable and blood sugar during the CODE BLUE was checked and was 139. Unfortunately after his 10th round of CPR with epinephrine he remained in PEA and he never had a shockable rhythm throughout his CODE BLUE. I discussed with family and we discontinued CPR and he at 1624.
--- NOTE | 2025-01-18 16:59 | EXP.PCM_ITS ---
Preliminary Cause of Preliminary Cause of Preliminary Cause of : Cardiac arrhythmia Date of Admission: 01/17/25 Date of : 01/18/25 Principle Diagnosis Problem List: Active and Suspected Problems (Updated 01/17/25 @ 20:[address] Kenton Walker MD) Elevated blood pressure reading (Acute) Fentanyl use disorder, mild, abuse (Acute) Admitted to substance misuse detoxification center (Acute) Hospital Course Isidro Smith is a 59-year-old male with a history of multidrug abuse presenting to the hospital requesting detox from opiates. He and his significant other had used fentanyl prior to arrival and was requesting detox and rehab afterwards. During his hospitalization he qualified to start buprenorphine however he refused subsequent doses after his first dose last evening, he was also refusing vital signs with nursing staff and was not interactive with either myself or nursing staff. He was not having any major complaints during the hospitalization and this afternoon he got up to go to the bathroom and appears to have collapsed to the ground unwitnessed. Staff responded and a CODE BLUE was called at 1537. He had 10 rounds of CPR with epinephrine, 3 doses of bicarb and had IV fluids running through an IO in his right lower extremity. We are unsuccessful in placing multiple different IVs so a second IO was placed for better access. During his code he was intubated with good respirations however his initial rhythm was asystole and subsequently PEA and never had either a pu lse or shockable rhythm. CPR was discontinued after approximately 45 minutes and he on 01/18/2025 at 1624.
--- NOTE | 2025-01-18 17:33 | NURSING ---
This nurse found pt. unresponsive on bathroom floor, code called at 9011.
--- NOTE | 2025-01-18 18:41 | NURSING ---
Later entry: Nurse into check and R was found laying on floor of bathroom. No pulse noted and staff assist called and code blue activated. Staff assist with removing pt from bathroom and cpr continues. Physican at bedside and code continues no success. Pt significant other was notified on PCU she is an inpatient. Up to floor and physician talking to her. Family updated, they are here now and physician here and talking to Pt.
--- NOTE | 2025-01-18 21:56 | NURSING ---
[facility] called pt placed in [facility] [place]
== END 2025-01-18 16:24 | DRG 897 ==
LOC: ED 21:18 → MS3 22:04
PROVIDERS: Admitting Provider Family Medicine; Emergency Provider Emergency Medicine; Visit Provider Family Medicine
DX: F11.23 Opioid dependence with withdrawal (principal); I46.8 Cardiac arrest due to other underlying condition; D64.9 Anemia, unspecified; E66.9 Obesity, unspecified; I49.9 Cardiac arrhythmia, unspecified; F17.210 Nicotine dependence, cigarettes, uncomplicated; R03.0 Elevated blood-pressure reading, without diagnosis of hypertension; Z90.81 Acquired absence of spleen; Z68.35 Body mass index [BMI] 35.0-35.9, adult; Z53.20 Procedure and treatment not carried out because of patient's decision for unspecified reasons
CPT/HCPCS: 31500; 36415; 80048; 80053; 82077; 82962; 85025; 92950; 99283; J2312